=== PATIENT | female | born 1970 | race Two or more races ===

== ENCOUNTER → 2020-05-08 17:57 | Outpatient (BNVA) | payer OTHER, SELFPAY | PROVIDERS: PCP Internal Medicine; Referring Provider Internal Medicine; Visit Provider Anesthesiology | DX: Z76.89 Persons encountering health services in other specified circumstances (principal) ==

== ENCOUNTER 2020-06-17 12:47 | Outpatient (REF) | payer OTHER, SELFPAY ==
[2020-06-17 14:15] LABS: COVID-19 Test Negative (Negative); IDNOW Serial# 55D5AD1C
== END 2020-06-17 12:48 | disposition home or self-care (01) ==
LOC: HO.EMPCOV 12:47
PROVIDERS: PCP Internal Medicine; Visit Provider Internal Medicine
DX: Z20.828 Contact with and (suspected) exposure to other viral communicable diseases (principal)
CPT/HCPCS: 87635; C9803

== ENCOUNTER 2020-06-17 13:30 | Emergency (ER) | payer OTHER, SELFPAY ==
[2020-06-17 13:38] VITALS: BP 132/92; PULSE 93; RESP 18; TEMP 36.8; O2SAT 100; BMI 19.3
--- NOTE | 2020-06-17 13:54 | XR_ITS ---
EXAMINATION: XR CHEST CLINICAL INFORMATION: SOB,] exposure. COMPARISON: None TECHNIQUE: Frontal view of the chest was obtained. FINDINGS: No significant abnormality is noted involving the heart, lungs, mediastinum, bony thorax or soft tissues. XR/XR chest 1V IMPRESSION: Unremarkable chest exam
--- NOTE | 2020-06-17 14:08 | ED.SOB ---
HPI - SOB/Dyspnea General Chief Complaint: Dyspnea Stated Complaint: sob Time Seen by Provider: 06/17/20 13:35 Source: patient Mode of arrival: ambulatory Limitations: no limitations History of Present Illness HPI Narrative: 49 y/o female with history of chronic pain, sacroilitis, lumbar radiculopathy who works here as a [employer] presents to ED from work with SOB. 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 She reports mild diarrhea and muscle aches. She denies chest pain. She has tingling in her hands since she arrived to the ER. She admits to being very anxious. MD elicited complaint: shortness of breath and cough Onset (ago): day(s) (1) Context: anxiety and other (sick contact exposure) Timing: constant Severity: mild Exacerbating factors: nothing Relieving factors: nothing Associated symptoms: cough Treatment prior to arrival: none Related Data Home oxygen amount: none Previous Rx's Medication Instructions Recorded oxycodone-acetaminophen 5 mg-325 1 tab PO Q8H PRN 28 Days #84 tab 05/23/ mg tablet hydroxyzine HCl 25 mg PO Q8H PRN #10 tab 06/17/20 Allergies Allergy/AdvReac Type Severity Reaction Status Date / Time gabapentin AdvReac Unknown dizziness, Verified 09/17/19 00:00 lightheadedness ibuprofen AdvReac Unknown nausea and Verified 09/17/19 00:00 vomiting Review of Systems Review of Systems: Constitutional: No Fever, No Chills ENT/Mouth: No sore throat, No Rhinorrhea, No Swallowing Difficulty Eyes: No Eye Pain, No Swelling, No Redness Cardiovascular: No Chest Pain, + SOB, No Orthopnea, No Edema Respiratory: + Cough, No Sputum, No Wheezing, No dyspnea Gastrointestinal: No Nausea, No Vomiting, + Diarrhea, No abdominal Pain Genitourinary: No Dysuria, No Urinary Frequency, No Hematuria Musculoskeletal: No joint pain, + Myalgias Skin: No Skin Lesions, No rash Neuro: No Weakness, + Numbness/tingling (fingers), No Dizziness, + Headache Psych: + Anxiety/Panic, No Depression Heme/Lymph: No Lymphadenopathy PMFSH Past Medical History Attestation statement: The following information was validated with the patient. Medical History Chronic pain syndrome Lumbar back pain with radiculopathy affecting left lower extremity Sacroiliitis Social History Social History Alcohol intake: never Smoking Status: Unknown if ever smoked Use of substances other than those prescribed or required for medical reasons: No Advance Directives: No Advance Directives Information Provided: Yes Physical Exam Vital Signs: Vital Signs: Last Vital Signs Temp 98.2 F 06/17/20 13:38 Pulse 93 06/17/20 13:38 Resp 18 06/17/20 13:38 BP 132/92 H 06/17/20 13:38 Pulse Ox 100 06/17/20 13:38 Body Mass Index 19.3 Appearance: Alert. Oriented X3. Anxious Eyes: Pupils equal, round and reactive to light. ENT: Pharynx normal. Neck: Normal inspection. Neck supple. CVS: Normal heart rate and rhythm. Pulses normal. Respiratory: No respiratory distress. Breath sounds normal. Abdomen: Soft and nontender. +BS x4 Skin: Skin warm and dry. Normal skin color. Normal skin turgor. No rashes. Extremities: No lower extremity edema. Negative Kyung's sign Neuro: Oriented X 3. No motor deficit. No sensory deficit. Course Course Course Narrative: 49 y/o female presenting with SOB x1 day along with mild diarrhea, headache and myalgias. Recent COVID exposure. Just swabbed in COVID-19 and sent into ER for further evaluation. Vitals are normal, breath sounds clear. She is anxious. Will get COVID swab result from area 19 and chest CXR. Low dose ativan ordered. Suspect anxiety is main driving factor. Reevaluation(s) Reevaluation #1: CXR negative. COVID negative. Stable for d/c. Treatment for anxiety. Work note provided. Critical Care Time Critical Care Time Critical Care Time: No Discharge Plan Discharge Clinical Impression: Anxiety Patient Disposition: Home, Self-Care Instructions: Anxiety (ED), COVID-19 (Coronavirus Disease 2019) (ED) Additional Instructions: Your rapid COVID test today was negative. Your vital signs and lung sounds are normal and reassuring. Your chest x-ray was normal. Your shortness of breath is likely related to increased anxiety. Take the prescribed medication as needed for anxiety. If you have persistent symptoms or develop new or concerning symptoms, come back to the ER for further evaluation. If you have persistent symptoms you should a repeat COVID test. Prescriptions: New hydroxyzine HCl 25 mg tablet 25 mg PO Q8H PRN (Reason: anxiety) Qty: 10 RF: 0 No Action oxycodone-acetaminophen 5-325 mg tablet 1 tab PO Q8H PRN (Reason: pain) 28 Days Qty: 84 RF: 0 Stand Alone Forms: Work/School Release Interventions: ED Discharge Assessment Last Done: 06/17/20 14:39 Discharge Date/Time: 06/17/20 14:40
[2020-06-17] MEDS: LORazepam 0.5 MG TABLET PO (14:19)
--- NOTE | 2020-06-17 14:23 | PC.NURSE ---
very anxious, relief from neg covid test. requesting pain medication pa aware.
== END 2020-06-17 14:40 | disposition home or self-care (01) ==
PROVIDERS: Emergency Provider Emergency Medicine; PCP Internal Medicine
DX: R06.00 Dyspnea, unspecified (principal); R05 Cough; F41.1 Generalized anxiety disorder; F43.0 Acute stress reaction; Z20.828 Contact with and (suspected) exposure to other viral communicable diseases
CPT/HCPCS: 71045; 99284

== ENCOUNTER → 2020-08-29 13:57 | Outpatient (BNVA) | payer OTHER, SELFPAY | PROVIDERS: PCP Internal Medicine; Visit Provider Nurse Practitioner Family ==

== ENCOUNTER 2020-09-09 15:14 | Outpatient (REF) | payer OTHER, SELFPAY ==
[2020-09-09 15:51] LABS: Hematocrit 33.6 % (37-47); Hemoglobin 10.7 g/dl (12.0-16.0); Mean Corpuscular HGB Conc 31.8 g/dl (31.0-35.0); Mean Corpuscular Hemoglobin 30.6 pg (27.0-33.0); Mean Platelet Volume 11.2 fL (9.4-12.3); Platelet Count 460 X10*3/uL (160-400); Red Cell Distribution Width 12.5 % (11.0-16.0)
[2020-09-09 16:26] LABS: Alanine Aminotransferase 18 U/L (0-31); Albumin Level 4.3 g/dL (3.5-5.0); Alkaline Phosphatase 67 U/L (39-117); Anion Gap 13 (12-20); Aspartate Amino Transferase 27 U/L (5-31); Bilirubin Total 0.5 mg/dL (0.0-1.0); Blood Urea Nitrogen 11 mg/dL (9-16); Calcium 9.1 mg/dL (8.4-10.2); Carbon Dioxide 30 mmol/L (22-29); Chloride 101 mmol/L (96-108); Estimated Glomerular Filt Rate > 60; Glucose Random 93 mg/dL (60-115); Potassium 4.8 mmol/L (3.3-5.1); Sodium 139 mmol/L (135-145); Total Protein 7.4 g/dL (6.5-8.0)
== END 2020-09-09 15:15 | disposition home or self-care (01) ==
LOC: HO.LAB 15:14
PROVIDERS: PCP Internal Medicine; Visit Provider Nurse Practitioner Family
DX: Z12.11 Encounter for screening for malignant neoplasm of colon (principal)
CPT/HCPCS: 36415; 80053; 85027

== ENCOUNTER → 2020-09-26 15:41 | Outpatient (BNVA) | payer OTHER, SELFPAY | PROVIDERS: PCP Internal Medicine; Visit Provider Nurse Practitioner Family ==

== ENCOUNTER 2020-10-07 06:12 | Day surgery (SDC) | payer OTHER, SELFPAY ==
--- NOTE | 2020-10-03 14:03 | HO.ANESPROP2 ---
Documented by User: Ana Birch 10/03/20 14:04 HPI - Anesthesia Eval Consult details Narrative: 50yo F for Colonoscopy PMFSH Active Problems Active Problems: All Active Problems (Updated 10/01/20 @ 11:38 by Leticia Tracey) Chronic pain syndrome (Acute) Sacroiliitis (Acute) Lumbar back pain with radiculopathy affecting left lower extremity (Acute) Past Medical History Medical History Anxiety Arthritis Chronic pain syndrome H. pylori infection Hx of gastroesophageal reflux (GERD) Lumbar back pain with radiculopathy affecting left lower extremity Sacroiliitis Family History Family History Mother Cancer Diabetes HTN (hypertension) Father Diabetes Heart attack Brother HTN (hypertension) Diabetes Heart problem Maternal Aunt Cancer Sister Cancer Surgical History Surgical History H/O tubal ligation History of bursectomy History of esophagogastroduodenoscopy (EGD) History of nasal polypectomy Hx of hemorrhoidectomy S/P anal fissurectomy Social History Social History Household Members: Significant Other Alcohol intake: current Alcohol intake frequency: holidays/special occasions only Alcohol type: wine Smoking Status: Current every day smoker Tobacco Type: Cigarette Cigarettes Per Day: 3 Use of substances other than those prescribed or required for medical reasons: No Advance Directives: No Advance Directives Information Provided: Yes Meds Allergies Allergy/AdvReac Type Severity Reaction Status Date / Time gabapentin AdvReac Unknown dizziness, Verified 10/07/20 06:28 lightheadedness ibuprofen AdvReac Unknown nausea and Verified 10/07/20 06:28 vomiting Home Medications Medication Instructions Recorded Confirmed Last Taken Type chlorhexidine gluconate 0.12 % 15 ml PO BID 09/26/20 10/01/20 Unknown History mouthwash Exam Exam Date and Time: October 03, 2020 1403 Pertinent Lab Results Pertinent Lab Results: Laboratory Tests 09/09/20 09/09/20 15:26 15:26 WBC 9.0 Hgb 10.7 L Hct 33.6 L Plt Count 460 H Sodium 139 Potassium 4.8 Chloride 101 Carbon Dioxide 30 H BUN 11 Creatinine 0.86 Assessment and Plan Assessment Anesthesia Assessment: Chart Reviewed Documented by User: Shannon Rogers 10/07/20 07:26 PMFSH Past Medical History Medical History Anxiety Arthritis Chronic pain syndrome H. pylori infection Hx of gastroesophageal reflux (GERD) Lumbar back pain with radiculopathy affecting left lower extremity Sacroiliitis Family History Family History Mother Cancer Diabetes HTN (hypertension) Father Diabetes Heart attack Brother HTN (hypertension) Diabetes Heart problem Maternal Aunt Cancer Sister Cancer Surgical History Surgical History H/O tubal ligation History of bursectomy History of esophagogastroduodenoscopy (EGD) History of nasal polypectomy Hx of hemorrhoidectomy S/P anal fissurectomy Social History Social History Household Members: Significant Other Alcohol intake: current Alcohol intake frequency: holidays/special occasions only Alcohol type: wine Smoking Status: Current every day smoker Tobacco Type: Cigarette Cigarettes Per Day: 3 Use of substances other than those prescribed or required for medical reasons: No Advance Directives: No Advance Directives Information Provided: Yes Meds Allergies Allergy/AdvReac Type Severity Reaction Status Date / Time gabapentin AdvReac Unknown dizziness, Verified 10/07/20 06:28 lightheadedness ibuprofen AdvReac Unknown nausea and Verified 10/07/20 06:28 vomiting Home Medications Medication Instructions Recorded Confirmed Last Taken Type chlorhexidine gluconate 0.12 % 15 ml PO BID 09/26/20 10/01/20 Unknown History mouthwash Exam Airway Mallampati Class: I TM Dist: >3cm Partial: Upper Loose/Missing/Broken Teeth: Yes and Upper Heart: RRR Lungs: CTA Assessment and Plan Assessment Anesthesia Assessment: Anesthesia Plan Discussed and Chart Reviewed Final Anesthetic Review NPO: Yes ASA Class: II Final Preanesthetic Review: Meds/Allgs Chart Reviewed, Consent Obtained/Reviewed and Anes Risks/Benef Reviewed Patient Risk: Low Procedure Risk: Low Anesthetic Plan Anesthetic Plan: MAC: Disposition: Standard PACU
[2020-10-07 06:30] VITALS: BMI 20.1
[2020-10-07 06:52] VITALS: BP 117/70; PULSE 73; RESP 16; TEMP 36.7; O2SAT 98
[2020-10-07] MEDS: Lactated Ringers 1,000 ML 100 ML IVCONT (06:54)
--- NOTE | 2020-10-07 07:42 | PM.OP ---
Brief Operative Note Date of Service: 10/07/20 Pre-op diagnosis: Colon cancer screening(+Family hx in Aunt on Paternal side) Post-op diagnosis: other (Large ulcerated low rectal mass, polyp @ 10cm; Internal hemorrhoids) Procedure: Colonoscopy with HSP x1,Bx of low rectal mass Implants: NONE Surgeon: Alba Cordero MD Anesthesia: MAC (MD NURY) Estimated blood loss (mL): 10 Pathology: other (Polyp @ 10cm, Ulcerated mass-low rectal) Condition: stable Disposition: PACU
--- NOTE | 2020-10-07 07:42 | MHC.SHP ---
Pre-Procedural Eval Section A The patient is an INPATIENT: No Changes since office visit: Yes Patient answered all questions; No Cold of Flu in the past 2 weeks, No New Medical Problems and No Changes in Medication The History & Physical has been completed within 30 days and I have reviewed it.: Yes Section B Chief Complaint: Screening Allergies: Allergies Allergy/AdvReac Type Severity Reaction Status Date / Time gabapentin AdvReac Unknown dizziness, Verified 10/07/20 06:28 lightheadedness ibuprofen AdvReac Unknown nausea and Verified 10/07/20 06:28 vomiting Plan I have reviewed the history and physical and performed a pertinent physical examination on my patient. No changes have occurred unless specified.
[2020-10-07 08:23] VITALS: BP 112/63; PULSE 69; RESP 18; TEMP 37.1; O2SAT 100
[2020-10-07 08:38] VITALS: BP 112/63; PULSE 69; RESP 18; TEMP 37.1; O2SAT 100
[2020-10-07 08:50] LABS: MANUAL DIFF FLAG NO
[2020-10-07 08:53] LABS: Basophils Percent Auto 0.3 % (0-2); Eosinophils Percent Auto 0.7 % (0-4); Hematocrit 34.2 % (37-47); Imm Gran Abs Auto 0.02 X10*3/uL (0.00-0.03); Imm Gran Pct Auto 0.3 % (0.0-0.4); Lymphocytes Absolute Auto 1.6 X10*3/uL (1.2-4.9); Lymphocytes Percent Auto 25.9 % (20-40); Mean Corpuscular HGB Conc 32.2 g/dl (31.0-35.0); Mean Corpuscular Hemoglobin 30.1 pg (27.0-33.0); Mean Corpuscular Volume 93.4 fL (80-98); Mean Platelet Volume 10.1 fL (9.4-12.3); Monocytes Absolute Auto 0.4 X10*3/uL (0.1-1.2); Neutrophils Absolute Auto 3.9 X10*3/uL (2.0-8.3); Neutrophils Percent Auto 65.8 % (45-73); Platelet Count 396 X10*3/uL (160-400); Red Blood Count 3.66 X10*6/uL (4.20-5.50); Red Cell Distribution Width 12.8 % (11.0-16.0)
[2020-10-07 09:16] LABS: Alanine Aminotransferase 14 U/L (0-31); Anion Gap 11 (12-20); Aspartate Amino Transferase 16 U/L (5-31); Blood Urea Nitrogen 8 mg/dL (9-16); Calcium 8.9 mg/dL (8.4-10.2); Carbon Dioxide 26 mmol/L (22-29); Chloride 106 mmol/L (96-108); Creatinine Clr Calc Pharmacy 75.9; Estimated Glomerular Filt Rate > 60; Glucose Fasting 98 mg/dL (60-99); Potassium 4.5 mmol/L (3.3-5.1); Sodium 138 mmol/L (135-145)
--- NOTE | 2020-10-07 15:44 | W.PM.OPN ---
Operative Note Operative Note Date of Service: 10/07/20 Narrative: Pre-op diagnosis: Colon cancer screening(+Family hx in Aunt on Paternal side) Post-op diagnosis: Large ulcerated low rectal mass, polyp @ 10cm; Internal hemorrhoids. Procedure: Colonoscopy with HSP x1,Bx of low rectal mass Implants: NONE Surgeon: Alba Cordero MD Anesthesia: MAC (MD NURY) FINDINGS; UZMA: Sphincter tone adequate, Large fixed polypoid lesion directly in from the ARV by 2-4cm Adult slim colonoscope introduced without difficulty encounted an Ulcerated mass that is partially circumferential and is 2-4cm in length-Center appears ulcerated, surrounding this is friable polypoid tissue. Scope advanced beyond this area easily. There was a second polyp about 5-8mm removed by HSP technique with ERBE cautery @ 10 cm. Scope advanced to the level of the cecum. Appendiceal orifice, ileocecal valve were seen. PREP: Excellent. Slow with drawal of scope good rotational views. NO additional lesions seen. Rectal lesion reseen biopsies were taken. Estimated blood loss (mL): 10 Pathology: Polyp @ 10cm, Ulcerated mass-low rectal--Rectal cancer. Condition: stable Disposition: PACU PLAN: Patient was informed of the findings. Labs were done. She has a new mild anemia that appears stable since August. (CEA--is not elevated.) She will be scheduled for a CT abd/pelvis as soon as possible. I spoke with Dr. Frye. She will need to see Oncology--My office will set this up as well. Check with Uday about an appt after the CT--does he want to order the MRI or does Oncology. She does not need followup in our office unless she has questions that arise as the workup progresses.
== END 2020-10-07 09:39 | disposition home or self-care (01) ==
PROVIDERS: PCP Internal Medicine; Visit Provider Internal Medicine Gastroenterology
PROC: 0DJD8ZZ Inspection of Lower Intestinal Tract, Via Natural or Artificial Opening Endoscopic (ICD-10-PCS; CPT 45378; principal; 2020-10-07 07:30)
DX: Z12.11 Encounter for screening for malignant neoplasm of colon (principal); D12.8 Benign neoplasm of rectum; C20 Malignant neoplasm of rectum; K64.8 Other hemorrhoids; D64.9 Anemia, unspecified; K59.00 Constipation, unspecified; G89.4 Chronic pain syndrome; M54.5 Low back pain; Z88.8 Allergy status to other drugs, medicaments and biological substances; Z79.899 Other long term (current) drug therapy; F17.210 Nicotine dependence, cigarettes, uncomplicated; Z80.1 Family history of malignant neoplasm of trachea, bronchus and lung; Z85.42 Personal history of malignant neoplasm of other parts of uterus
CPT/HCPCS: 45380; 36415; 80048; 82378; 82565; 84450; 84460; 84520; 85025; 88305; 88341; 88342

== ENCOUNTER 2020-10-08 09:12 | Outpatient (REF) | payer OTHER, SELFPAY ==
--- NOTE | ~2020-10-08 | CT_ITS ---
EXAMINATION: CT ABDOMEN AND PELVIS WITH CONTRAST CLINICAL INFORMATION: Rectal cancer COMPARISON: Previous CT of the abdomen and pelvis most recent October 2016 TECHNIQUE: Multidetector volumetric images were obtained from the superior aspect of the liver through the pubic symphysis following administration 85 mL of Omnipaque 350 intravenous contrast. Sagittal and coronal reformatted images were obtained on the technologist's workstation. Oral contrast: Yes This CT examination was performed using dose optimization techniques as appropriate, variously including the following: *Automated exposure control *Adjustment of mA and/or kV according to patient size (this includes techniques or standardized protocols for targeted exams where dose is matched to indication/reason for exam; i.e. extremities or head) *Use of iterative reconstruction technique DLP: 187 mGy-cm FINDINGS: LUNG BASES: There is a 7 mm left lower lobe nodule axial image 9 series 3 that is new. LIVER, GALLBLADDER, AND BILIARY TREE: The liver is normal in size, shape, and attenuation. No focal hepatic lesion or biliary ductal dilatation is present. The gallbladder is unremarkable with no evidence of radiopaque gallstones, gallbladder wall thickening, or obvious pericholecystic inflammatory changes. PANCREAS: Unremarkable. SPLEEN: Unremarkable. ADRENAL GLANDS: There is slight fullness or nodularity of the left adrenal gland that is stable. KIDNEYS AND URETERS: There is a small cyst in the upper pole of the right kidney. The kidneys are otherwise unremarkable.. BLADDER: Not optimally distended and not well evaluated. GASTROINTESTINAL TRACT: There is diffuse wall thickening of the rectum. A discrete mass is not seen. There is mild diverticulosis of the colon. Small and large bowel is otherwise unremarkable. The appendix is unremarkable. The stomach is unremarkable. ABDOMINAL WALL: No significant hernia is appreciated. LYMPH NODES: There are small lymph nodes in the pelvis. Largest in the presacral space measuring 6 mm axial image 59 series 3. There are 2 there is a smaller 5 mm more lateral lymph node axial image 59 series 3 and 4 mm more superior lymph node in the mesentery axial image 53 series 3. VASCULAR: Unremarkable. PELVIC VISCERA: There is a 3 cm left adnexal cyst. The uterus and right adnexa are unremarkable. OSSEOUS STRUCTURES: There is a small sclerotic density in the left femoral neck that is stable and probably represents a bone island. CT/CT abdomen pelvis w con IMPRESSION: Diffuse rectal wall thickening and small perirectal lymph nodes in the pelvis. New 7 mm left lower lobe pulmonary nodule. 3 cm left adnexal cyst. Stable fullness of the left adrenal gland and small right renal cyst.
[2020-10-08] MEDS: iohexoL 350 MG/ML 100 ML INFUS..BTL IV (10:16)
== END 2020-10-08 09:13 | disposition home or self-care (01) ==
LOC: HO.CT 09:12
PROVIDERS: PCP Internal Medicine; Visit Provider Internal Medicine Gastroenterology
DX: C20 Malignant neoplasm of rectum (principal)
CPT/HCPCS: 74177; Q9967

== ENCOUNTER 2020-10-09 09:49 | Outpatient (REF) | payer OTHER, SELFPAY ==
[2020-10-09 11:54] LABS: Blood Urea Nitrogen 5 mg/dL (9-16); Estimated Glomerular Filt Rate > 60
== END 2020-10-09 09:50 | disposition home or self-care (01) ==
LOC: HO.LAB 09:49
PROVIDERS: PCP Internal Medicine; Visit Provider Surgery
DX: C20 Malignant neoplasm of rectum (principal)
CPT/HCPCS: 36415; 46600; 82565; 84520

== ENCOUNTER → 2020-10-09 14:18 | Outpatient (BNV) | payer MEDICARE, OTHER, MEDICAID, SELFPAY | PROVIDERS: PCP Internal Medicine; Referring Provider Internal Medicine Gastroenterology; Visit Provider Internal Medicine Medical Oncology | DX: C20 Malignant neoplasm of rectum (principal) | CPT/HCPCS: 99204; 99213; 99214 ==

== ENCOUNTER 2020-10-15 10:55 | Outpatient (REF) | payer OTHER, SELFPAY ==
--- NOTE | ~2020-10-15 | MR_ITS ---
EXAMINATION: MR pelvis without and with contrast CLINICAL INFORMATION: Malignant neoplasm of rectum COMPARISON: Selected portions of CT 10/08/2020 TECHNIQUE: Multiple routine MRI sequences through the pelvis were obtained on a high-field 3 Emilia MRI. The examination was specifically tailored to evaluate the rectum. Pre and postcontrast images were evaluated. 5 mL of Gadavist intravenous contrast was utilized without incident. FINDINGS: IMAGE QUALITY The orientation of the plane through the tumor is suboptimal. The integrity of the perirectal fat and relationships to the mesorectal fascia is difficult to determine. TUMOR LOCATION Tumor location from anal verge: The rectal mass extends to within 2.7 cm in the anal verge. Distance of lowest extent of tumor from anal verge: 2.7 cm. Distance of lowest extent of tumor from top of anal sphincter: 0 cm. The mass extends to the upper aspect of the sphincter. Relationship to anterior peritoneal reflection: No definite involvement of the anterior peritoneal reflection. Tumor characteristics: Circumferential extent and location: There is essentially circumferential tumor involvement. Craniocaudad extent: 5.2 cm Mucinous: No T-category i) T-category T3/ possible T4* T4 Organ invasion b Tumor is closely related to the left side of the cervix * T4: Please indicate structures with possible invasion: Vagina/left side of cervix ii) For low rectal tumors (0 - 5 cm) only: T3 Tumor invades intersphincteric plane or lies within 1 mm of levator muscle. The lower extent of the tumor at or below the top border of the puborectalis. The relationship to the internal and external sphincter is difficult to determine. Distance to the MRF and extramural depth of invasion Shortest distance of the definitive tumor border to the MRF: This is difficult to determine due to the plane of the imaging. Estimated to be approximately 1 cm. There are tumor spiculations extending between the rectum and mesorectal fascia nearly circumferentially. These are nonspecific. Extramural vascular invasion (EMVI): Equivocal Mesorectal Lymph Nodes And/Or Tumor Deposits: No convincing mesorectal lymph nodes although this is suboptimally evaluated. Extra mesorectal Lymph Nodes: None There is a uterine fibroid on the left. There is a small left adnexal cyst. Small nabothian cysts. No free pelvic fluid. IMPRESSION The orientation of the imaging plane through the tumor is suboptimal. This limits assessment. There is a low rectal tumor extending from the sphincter approximately 5.2 cm. There are strands of abnormal signal extending from the rectum to the region of the cervix and vaginal fornix. Minimal invasion is not excluded. Stranding in the perirectal fat is nonspecific but moderately extensive. No definite extension beyond the mesorectal fascia. No definite involvement of the peritoneal reflection or bladder. No convincing adenopathy. The mass extends to the sphincter. Difficult to assess for involvement of the external sphincter or intersphincteric plane.
== END 2020-10-15 10:56 | disposition home or self-care (01) ==
LOC: HO.MRI 10:55
PROVIDERS: Visit Provider Surgery
DX: C20 Malignant neoplasm of rectum (principal)
CPT/HCPCS: 72197; A9585

== ENCOUNTER → 2020-10-23 13:00 | Outpatient (BNVA) | payer OTHER, SELFPAY | PROVIDERS: PCP Internal Medicine; Visit Provider Surgery ==

== ENCOUNTER 2020-10-28 08:47 | Outpatient (REF) | payer OTHER, SELFPAY ==
[2020-10-28 15:52] LABS: CT PCR NOT DETECTED (Not Detect.); NG PCR NOT DETECTED (Not Detect.)
[2020-10-29 11:09] LABS: BV Int Neg Control Negative (Negative); BV Int Pos Control Positive (Positive)
[2020-11-01 11:37] LABS: HPV 16 RNA NOT DETECTED (NOT DETECTED); HPV mRNA E6/E7 rflx Detected (Not Detected)
== END 2020-10-28 08:48 | disposition home or self-care (01) ==
LOC: HO.LAB 08:47
PROVIDERS: PCP Internal Medicine; Visit Provider Advanced Practice Midwife
DX: Z01.419 Encounter for gynecological examination (general) (routine) without abnormal findings (principal); R10.2 Pelvic and perineal pain; Z20.2 Contact with and (suspected) exposure to infections with a predominantly sexual mode of transmission; Z11.51 Encounter for screening for human papillomavirus (HPV); C20 Malignant neoplasm of rectum; D12.6 Benign neoplasm of colon, unspecified; K59.00 Constipation, unspecified; Z98.890 Other specified postprocedural states
CPT/HCPCS: 87480; 87491; 87510; 87591; 87624; 87625; 87660; 88141; 88142

== ENCOUNTER 2020-11-11 08:36 | Outpatient (REF) | payer OTHER, SELFPAY ==
--- NOTE | ~2020-11-11 | PE_ITS ---
There are no suspicious sclerotic or lytic lesions visualized. EXAMINATION: Fluorine-18 FDG PET/CT Scan CLINICAL INDICATION: Initial treatment management. Malignant neoplasm of rectum. Initial staging. PROCEDURE: 60 minutes following the intravenous administration of 16.4 mCi of fluorine 18 FDG, images from the base of the skull to the mid thighs were obtained using a combined PET/CT scanner with CT scan based attenuation correction. No oral contrast was administered. No intravenous contrast was administered. Transverse, coronal, sagittal, and volume reconstruction projections were obtained. The patient's blood glucose as determined by a finger stick, was 87 mg/dl immediately prior to injection. Total CT exam dose-length product 187.12 mGy-cm * These CT images were obtained using dose optimization techniques as appropriate, variously including the following: Automated exposure control * Adjustment of mA and/or kV according to patient size (this includes techniques or standardized protocols for targeted exams where dose is matched to indication/reason for exam; i.e. extremities or head) * Use of iterative reconstruction technique COMPARISON: No previous PET/CT scan is available for comparison. The diagnostic CT scan of the abdomen and pelvis, dated 10/08/2020, is available for comparison. FINDINGS: (Slice numbers described in this report are numbered superiorly to inferiorly with slice #1 in the head) NECK AND VISUALIZED HEAD: No foci of abnormal FDG activity are noted. The distribution of FDG activity is physiological. There is no cervical lymphadenopathy. THORAX: There is a 0.9 x 0.5 cm solid left lower lobe pulmonary nodule, slice 83/267. There is weak FDG activity in this, SUVmax 1.6, slice 82/267, but this nodule is too small to be well characterized on the FDG PET images. A second dense 0.9 x 0.7 cm left lower lobe pulmonary nodules present just superior to the left hemidiaphragm, slice 114/267. This is also too small to be characterized on the FDG PET images, but no abnormal FDG activity is present at this site. No other pulmonary nodules are visualized. There are no suspicious foci of abnormal FDG activity well delineated within the lungs. There is no mediastinal, supraclavicular, or axillary lymphadenopathy. ABDOMEN AND PELVIS: There is markedly increased FDG activity associated with wall thickening in the rectum. This shows SUVmax 9.5, slice 223/267. No additional foci of abnormal FDG activity are present in the abdomen or pelvis. There is mild diffuse bowel activity present, most prominent in the right colon but no additional suspicious foci of FDG activity are present in the abdomen or pelvis. There is diverticulosis without evidence of diverticulitis. The hollow viscera are otherwise unremarkable. he liver, gallbladder, spleen, and kidneys are unremarkable. The adrenal glands are unremarkable. Fullness or nodularity in the left adrenal gland suggested on the diagnostic CT scan dated 10/08/2020 is not appreciated on these nondiagnostic CT images. There is no abnormal FDG activity in either adrenal gland. A 3 cm left adnexal cyst at the level of the acetabular roof described on the 10/08/[address] scan is not present on the current study. The pancreas is unremarkable. There is no retroperitoneal, mesenteric, pelvic or inguinal lymphadenopathy. There is no perirectal lymphadenopathy. MUSCULOSKELETAL: No foci of abnormal FDG activity are present in the osseous structures. No suspicious sclerotic or lytic lesions are visualized. VASCULAR: No significant abnormalities are present. PET/PET CT fusion skull to thigh IMPRESSION: 1. An intensely FDG avid rectal lesion is present consistent with a primary rectal malignancy. 2. Two subcentimeter left lower lobe pulmonary nodules are present, too small to be well characterized on the FDG PET images. If biopsy of these lesions is not obtained, follow-up with diagnostic CT imaging of the chest in approximately 3-6 months is recommended. 3. No additional abnormalities suspicious for other metastatic or malignant lesions are noted.
== END 2020-11-11 08:37 | disposition home or self-care (01) ==
LOC: HO.PET 08:36
PROVIDERS: PCP Internal Medicine; Visit Provider Internal Medicine Medical Oncology
DX: Z13.89 Encounter for screening for other disorder (principal)

== ENCOUNTER 2020-11-18 03:00 | Emergency (ER) | payer OTHER, SELFPAY ==
--- NOTE | 2020-11-18 | ECG_ITS ---
Test Reason : EPIGASTRIC PAIN Blood Pressure : / mmHG Vent. Rate : 064 BPM Atrial Rate : 064 BPM P-R Int : 106 ms QRS Dur : 088 ms QT Int : 398 ms P-R-T Axes : 069 070 062 degrees QTc Int : 410 ms Sinus rhythm with short [place] Otherwise normal ECG When compared with ECG of 14-NOV-2016 06:37, No significant change was found Referred By: Shannon Hernandez Electronically Signed By:RUPERTO NORTH
--- NOTE | ~2020-11-18 | CT_ITS ---
EXAMINATION: CT ABDOMEN AND PELVIS WITH CONTRAST CLINICAL INFORMATION: Abdominal discomfort. Known cancer. Mild nausea. COMPARISON: 10/08/2020 TECHNIQUE: Multidetector volumetric images were obtained from the superior aspect of the liver through the pubic symphysis following administration 85 mL of Omnipaque 350 intravenous contrast. Sagittal and coronal reformatted images were obtained on the technologist's workstation. Oral contrast: No This CT examination was performed using dose optimization techniques as appropriate, variously including the following: *Automated exposure control *Adjustment of mA and/or kV according to patient size (this includes techniques or standardized protocols for targeted exams where dose is matched to indication/reason for exam; i.e. extremities or head) *Use of iterative reconstruction technique DLP: 344 mGy-cm FINDINGS: LUNG BASES: Unchanged nodule in the left lower lobe at the lung base measuring 0.7 cm. LIVER, GALLBLADDER, AND BILIARY TREE: The liver is normal in size, shape, and attenuation. No focal hepatic lesion or biliary ductal dilatation is present. The gallbladder is unremarkable with no evidence of radiopaque gallstones, gallbladder wall thickening, or obvious pericholecystic inflammatory changes. PANCREAS: Unremarkable. SPLEEN: Unremarkable. ADRENAL GLANDS: Unremarkable. KIDNEYS AND URETERS: The kidneys are normal in size, shape, and attenuation. No hydronephrosis, hydroureter, or calculi seen. No perinephric stranding. BLADDER: Unremarkable. GASTROINTESTINAL TRACT: The stomach is unremarkable. Normal caliber small bowel. There is no obstruction. Irregular wall thickening of the rectum, which is decreased in prominence from the previous CT. The remainder of the colon shows no abnormality. No free air. No free fluid. ABDOMINAL WALL: No significant hernia is appreciated. LYMPH NODES: Normal. VASCULAR: Unremarkable. PELVIC VISCERA: Anteverted uterus. No adnexal mass. OSSEOUS STRUCTURES: No acute or suspicious osseous abnormality. CT/CT abdomen pelvis w con IMPRESSION: 1. No acute finding in the abdomen or pelvis. No acute inflammatory change. 2. Decreased prominence of the irregular rectal wall thickening consistent with the known rectal malignancy. No additional colonic abnormality identified. 3. Unchanged pulmonary nodule at the left lung base.
[2020-11-18 03:48] VITALS: BP 103/59; PULSE 64; RESP 12; TEMP 36.9; O2SAT 100; BMI 19.6
[2020-11-18 03:55] VITALS: BP 103/59; PULSE 64; RESP 12; O2SAT 99
[2020-11-18 04:23] LABS: Basophils Percent Auto 0.2 % (0-2); Eosinophils Absolute Auto 0.3 X10*3/uL (0.0-0.4); Eosinophils Percent Auto 6.9 % (0-4); Hematocrit 31.9 % (37-47); Hemoglobin 10.8 g/dl (12.0-16.0); Imm Gran Abs Auto 0.01 X10*3/uL (0.00-0.03); Imm Gran Pct Auto 0.2 % (0.0-0.4); Lymphocytes Absolute Auto 0.5 X10*3/uL (1.2-4.9); Lymphocytes Percent Auto 11.6 % (20-40); MANUAL DIFF FLAG SCAN; Mean Corpuscular HGB Conc 33.9 g/dl (31.0-35.0); Mean Corpuscular Hemoglobin 30.5 pg (27.0-33.0); Mean Corpuscular Volume 90.1 fL (80-98); Mean Platelet Volume 9.9 fL (9.4-12.3); Monocytes Absolute Auto 0.4 X10*3/uL (0.1-1.2); Monocytes Percent Auto 9.3 % (2-11); Neutrophils Absolute Auto 3.3 X10*3/uL (2.0-8.3); Neutrophils Percent Auto 71.8 % (45-73); Platelet Count 287 X10*3/uL (160-400); Red Blood Count 3.54 X10*6/uL (4.20-5.50); Red Cell Distribution Width 12.7 % (11.0-16.0); SCAN SMEAR FLAG 1; White Blood Count 4.6 X10*3/uL (4.8-10.8)
--- NOTE | 2020-11-18 04:25 | PC.NURSE ---
patient spilling her chemotherapy drugs onto the floor of her room. Called nursing metal extrusion supervisor and overnight pharmacy for proper handling of the spill. patient removed from room. told to handle spill as though chemotherapy administration, double glove, gowning up, no contact for women and disposing of medication residue in properly marked bins. environmental services supplying this rn with spill equipment for chemotherapy drugs. area cleansed twice and no residue noted. nursing metal extrusion supervisor made aware again when spill was contained.
[2020-11-18 04:30] LABS: Prothrombin Time 12.4 SEC (10.8-13.0)
[2020-11-18 04:32] LABS: Glucose Urine UA NEG (NEG); Leukocyte Esterase Urine NEG (NEG); Nitrite Urine NEG (NEG); Urine Blood TRACE (NEG); Urine Ketones NEG (NEG); Urine Protein NEG (NEG-TRACE)
[2020-11-18 04:33] LABS: Appearance Urine CLEAR; Color Urine YELLOW
[2020-11-18 04:34] LABS: UPreg QC Valid YES; Urine Pregnancy NEGATIVE (NEGATIVE)
--- NOTE | 2020-11-18 04:38 | ED_ITS ---
HPI - Abdominal Pain General Chief Complaint: Abdominal Pain Stated Complaint: Abd pain Time Seen by Provider: 11/18/20 03:44 Source: patient Mode of arrival: ambulatory History of Present Illness HPI narrative: This is a 50-year-old female with past medical history significant for colon CA currently undergoing chemotherapy and radiation for which she only has 3 weeks left. She presents today for the past 2 evenings at night waking up with ?cramping primarily in the upper abdomen?. This is not been associated with fever, chills, but there has been some nausea without vomiting and she denies any diarrhea or urinary symptoms. She states that she discuss this yesterday with her provider and was offered a medication to help with the crampiness, but patient wanted to wait and see if the symptoms occurred again and became concerned and wanted to get evaluated in the emergency room. She has a negative abdominal surgery history. Related Data Previous Rx's Medication Instructions Recorded oxycodone 10 mg tablet 10 mg PO Q6-8H PRN 28 Days #112 tab 10/14/20 capecitabine 1,500 mg PO BID #120 tab 10/22/20 methylcellulose (laxative) 500 mg 500 mg PO DAILY #30 tab 10/28/20 tablet ondansetron HCl [Zofran] 8 mg PO Q8H PRN #60 tab 10/30/20 Allergies Allergy/AdvReac Type Severity Reaction Status Date / Time gabapentin AdvReac Unknown dizziness, Verified 11/18/20 03:46 lightheadedness ibuprofen AdvReac Unknown nausea and Verified 11/18/20 03:46 vomiting Review of Systems Review of Systems Pertinent positives and negatives as stated in HPI 10 point review of systems is otherwise negative. Physical Exam Vital Signs: Vital Signs: Last Vital Signs Temp 98.5 F 11/18/20 03:48 Pulse 64 11/18/20 03:55 Resp 12 11/18/20 03:55 BP 103/59 L 11/18/20 03:55 Pulse Ox 99 11/18/20 03:55 Body Mass Index 19.6 VITAL SIGNS: Reviewed. GENERAL: Well developed, well nourished, in no acute distress. HEAD: Normocephalic/atraumatic EYES: PERRLA, EOMI EARS: Ext canals without abnormality NOSE: Nares patent bilateral OROPHARYNX: no oral lesions noted, posterior pharynx clear NECK: Supple, no adenopathy LUNGS: Normal breath sounds. No adventitious sounds or accessory muscle use. SpO2<99> CARDIOVASCULAR: Regular rate and rhythm without noted murmurs, no JVD or lower extremity edema. ABDOMEN: Soft, some tenderness in the epigastrium without rebound, non-distended with bowel sounds. Course Course Course Narrative: This is a 50-year-old female with history and clinical presentation suggestive possible ileus, SBO. Review of all investigations is negative for any acute findings. All results were discussed with patient at bedside and she was instructed to follow-up with your provider and recommended that she take the medication that was offered yesterday. MDM - Abdominal Pain Lab Data Result diagrams: 11/18/20 04:10 11/18/20 04:10 Labs: Lab Results 11/18/20 11/18/20 11/18/20 Range/Units 03:57 03:57 04:10 WBC 4.6 L (4.8-10.8) X10*3/uL RBC 3.54 L (4.20-5.50) X10*6/uL Hgb 10.8 L (12.0-16.0) g/dl Hct 31.9 L (37-47) % MCV 90.1 (80-98) fL MCH 30.5 (27.0-33.0) pg MCHC 33.9 (31.0-35.0) g/dl RDW 12.7 (11.0-16.0) % Plt Count 287 (160-400) X10*3/uL MPV 9.9 (9.4-12.3) fL Immature Gran % (Auto) 0.2 (0.0-0.4) % Neut % (Auto) 71.8 (45-73) % Lymph % (Auto) 11.6 L (20-40) % Wilson % (Auto) 9.3 (2-11) % Eos % (Auto) 6.9 H (0-4) % Baso % (Auto) 0.2 (0-2) % Lymph # (Auto) 0.5 L (1.2-4.9) X10*3/uL [place] # (Auto) 0.4 (0.1-1.2) X10*3/uL Eos # (Auto) 0.3 (0.0-0.4) X10*3/uL Baso # (Auto) 0.0 (0.0-0.2) X10*3/uL Abs Immat Gran (auto) 0.01 (0.00-0.03) X10*3/uL Absolute Neuts (auto) 3.3 (2.0-8.3) X10*3/uL Absolute Nucleated RBC 0.000 (0.0-0.012) X10*3/uL Nucleated RBC % (auto) 0.0 (0.0-0.2) /100WBC Smear Tech's Comments VERIFIED PT (10.8-13.0) SEC INR (0.9-1.1) Sodium (135-145) mmol/L Potassium (3.3-5.1) mmol/L Chloride (96-108) mmol/L Carbon Dioxide (22-29) mmol/L Anion Gap (12-20) BUN (9-16) mg/dL Creatinine (0.5-1.4) mg/dL Estim Creat Clear Calc Estimated GFR Random Glucose (60-115) mg/dL Calcium (8.4-10.2) mg/dL Total Bilirubin (0.0-1.0) mg/dL AST (5-31) U/L ALT (0-31) U/L Alkaline Phosphatase (39-117) U/L Troponin I High Sens (<3.5-17.0) ng/L Total Protein (6.5-8.0) g/dL Albumin (3.5-5.0) g/dL Lipase (8-78) U/L Urine Color YELLOW Urine Appearance CLEAR Urine pH 6.0 (5.0-8.0) Ur Specific [place] 1.020 (1.005-1.025) Urine Protein NEG (NEG-TRACE) MG/DL Urine Glucose (UA) NEG (NEG) MG/DL Urine Ketones NEG (NEG) MG/DL Urine Blood TRACE (NEG) Urine Nitrite NEG (NEG) Ur Leukocyte Esterase NEG (NEG) Urine RBC 0-2 (0) /HPF Urine WBC 0 (0-4) /HPF Ur Squamous Epith Cells TRACE /LPF Ur Renal Epithelial Cell TRACE /LPF Urine Bacteria NONE /LPF Urine Test NEGATIVE (NEGATIVE) 11/18/20 11/18/20 11/18/20 Range/Units 04:10 04:10 04:13 WBC (4.8-10.8) X10*3/uL RBC (4.20-5.50) X10*6/uL Hgb (12.0-16.0) g/dl Hct (37-47) % MCV (80-98) fL MCH (27.0-33.0) pg MCHC (31.0-35.0) g/dl RDW (11.0-16.0) % Plt Count (160-400) X10*3/uL MPV (9.4-12.3) fL Immature Gran % (Auto) (0.0-0.4) % Neut % (Auto) (45-73) % Lymph % (Auto) (20-40) % Wilson % (Auto) (2-11) % Eos % (Auto) (0-4) % Baso % (Auto) (0-2) % Lymph # (Auto) (1.2-4.9) X10*3/uL [place] # (Auto) (0.1-1.2) X10*3/uL Eos # (Auto) (0.0-0.4) X10*3/uL Baso # (Auto) (0.0-0.2) X10*3/uL Abs Immat Gran (auto) (0.00-0.03) X10*3/uL Absolute Neuts (auto) (2.0-8.3) X10*3/uL Absolute Nucleated RBC (0.0-0.012) X10*3/uL Nucleated RBC % (auto) (0.0-0.2) /100WBC Smear Tech's Comments PT 12.4 (10.8-13.0) SEC INR 1.0 (0.9-1.1) Sodium 140 (135-145) mmol/L Potassium 3.9 D (3.3-5.1) mmol/L Chloride 107 (96-108) mmol/L Carbon Dioxide 24 (22-29) mmol/L Anion Gap 13 (12-20) BUN 10 (9-16) mg/dL Creatinine 0.68 (0.5-1.4) mg/dL Estim Creat Clear Calc 72.8 Estimated GFR > 60 Random Glucose 102 (60-115) mg/dL Calcium 8.8 D (8.4-10.2) mg/dL Total Bilirubin < 0.2 (0.0-1.0) mg/dL AST 13 (5-31) U/L ALT 15 (0-31) U/L Alkaline Phosphatase 47 D (39-117) U/L Troponin I High Sens < 3.5 (<3.5-17.0) ng/L Total Protein 6.4 L (6.5-8.0) g/dL Albumin 3.8 (3.5-5.0) g/dL Lipase 25 (8-78) U/L Urine Color Urine Appearance Urine pH (5.0-8.0) Ur Specific [place] (1.005-1.025) Urine Protein (NEG-TRACE) MG/DL Urine Glucose (UA) (NEG) MG/DL Urine Ketones (NEG) MG/DL Urine Blood (NEG) Urine Nitrite (NEG) Ur Leukocyte Esterase (NEG) Urine RBC (0) /HPF Urine WBC (0-4) /HPF Ur Squamous Epith Cells /LPF Ur Renal Epithelial Cell /LPF Urine Bacteria /LPF Urine Test (NEGATIVE) ECG Data Attestation: I personally reviewed and interpreted this ECG as follows: Prior ECG tracings: available for review (11/14/2016 no acute changes on comparison) Interpretation: Sinus rhythm, HR-64, no evidence of acute ischemia, MN shortened/QRS and QTC are within normal limits. Discharge Plan Discharge Clinical Impression: Abdominal discomfort Patient Disposition: Home, Self-Care Instructions: Abdominal Pain (ED) Additional Instructions: Follow-up with your primary care provider by calling the office today and discussing the medication that was offered yesterday. Return to the ER for any acute worsening of symptoms. Prescriptions: No Action ondansetron HCl [Zofran] 4 mg Tablet 8 mg PO Q8H PRN (Reason: Nausea And Vomiting) Qty: 60 RF: 4 capecitabine 500 mg Tablet 1,500 mg PO BID Qty: 120 RF: 1 oxycodone 10 mg tablet 10 mg PO Q6-8H PRN (Reason: rectal pain) 28 Days Qty: 112 RF: 0 Citrucel 500 mg tablet 500 mg PO DAILY Qty: 30 RF: 2 Referrals: Ky Lin MD [Primary Care Provider] - 2 days [facility] Past Medical History Source: nursing notes reviewed Medical History Adenocarcinoma of rectum Anxiety Arthritis Chronic pain syndrome H. pylori infection Hx of gastroesophageal reflux (GERD) Lumbar back pain with radiculopathy affecting left lower extremity Rectal cancer Sacroiliitis Tubular adenoma Surgical History H/O tubal ligation History of bursectomy History of esophagogastroduodenoscopy (EGD) History of nasal polypectomy Hx of colonoscopy Hx of hemorrhoidectomy S/P anal fissurectomy Family History Family History Mother Cancer Diabetes HTN (hypertension) Father Diabetes Heart attack Brother HTN (hypertension) Diabetes Heart problem Maternal Aunt Cancer Sister Cancer Social History Social History Household Members: Significant Other Alcohol intake: never Smoking Status: Never smoker Tobacco Type: Cigarette Use of substances other than those prescribed or required for medical reasons: No Advance Directives: No Advance Directives Information Provided: No Patient : No
[2020-11-18 05:05] LABS: Alanine Aminotransferase 15 U/L (0-31); Albumin Level 3.8 g/dL (3.5-5.0); Alkaline Phosphatase 47 U/L (39-117); Anion Gap 13 (12-20); Aspartate Amino Transferase 13 U/L (5-31); Bilirubin Total < 0.2 mg/dL (0.0-1.0); Blood Urea Nitrogen 10 mg/dL (9-16); Calcium 8.8 mg/dL (8.4-10.2); Carbon Dioxide 24 mmol/L (22-29); Chloride 107 mmol/L (96-108); Creatinine Clr Calc Pharmacy 72.8; Estimated Glomerular Filt Rate > 60; Glucose Random 102 mg/dL (60-115); Lipase 25 U/L (8-78); Potassium 3.9 mmol/L (3.3-5.1); Sodium 140 mmol/L (135-145); Total Protein 6.4 g/dL (6.5-8.0)
[2020-11-18 05:06] LABS: Troponin-I High Sensitivity < 3.5 ng/L (<3.5-17.0)
[2020-11-18 05:24] LABS: SLIDE REVIEW VERIFIED
[2020-11-18 05:24] LABS: RBC Urine 0-2 /HPF (0); Renal Epithelial Cells Urine TRACE /LPF; Squamous Epithelial Cell Urine TRACE /LPF; WBC Urine 0 /HPF (0-4)
[2020-11-18] MEDS: iohexoL 350 MG/ML 100 ML INFUS..BTL 85 ML IV (06:32)
== END 2020-11-18 07:43 | disposition home or self-care (01) ==
PROVIDERS: Emergency Provider Student in an Organized Health Care Education/Training Program; PCP Internal Medicine
DX: R10.10 Upper abdominal pain, unspecified (principal); R11.0 Nausea; C20 Malignant neoplasm of rectum; Z92.21 Personal history of antineoplastic chemotherapy; Z92.3 Personal history of irradiation; Z87.891 Personal history of nicotine dependence
CPT/HCPCS: 36415; 74177; 80053; 81001; 81025; 83690; 84484; 85025; 85610; 93005; 99284; 99285; Q9967

== ENCOUNTER → 2020-11-19 08:54 | Outpatient (BNVA) | payer OTHER, SELFPAY | PROVIDERS: PCP Internal Medicine; Referring Provider Internal Medicine; Visit Provider Surgery ==

== ENCOUNTER 2020-11-26 14:31 | Outpatient (REF) | payer OTHER, SELFPAY ==
--- NOTE | ~2020-11-26 | US_ITS ---
EXAMINATION: US PELVIC AND TRANSVAGINAL CLINICAL INFORMATION: Pelvic/perineal pain. COMPARISON: Multiple priors, most recent CT abdomen/pelvis dated 11/18/2020, PET/CT dated 11/11/2020, and MR pelvis dated 10/15/2020 TECHNIQUE: Transabdominal and transvaginal imaging was performed. FINDINGS: The uterus is of normal size and echogenicity measuring 6.2 x 2.8 x 4 cm. A regular homogeneous endometrium is identified measuring 0.2 cm. There are nabothian cysts. Both ovaries are of normal size and echogenicity. The right measures 1.3 x 2.3 x 1.5 cm for a volume of 2 mL. The left measures 1.9 x 1.6 x 1.4 cm for a volume of 2 mL. Left ovarian simple cyst measuring 1.4 cm. In a postmenopausal patient, a cyst this size is almost certainly benign, and no followup imaging is recommended. There is no pelvic free fluid. US/US pelvic and transvaginal IMPRESSION: 1. Sonographically unremarkable uterus and endometrium. 2. Simple left ovarian cyst measuring 1.4 cm. In a postmenopausal patient, a cyst this size is almost certainly benign, and no followup imaging is recommended.
== END 2020-11-26 14:32 | disposition home or self-care (01) ==
LOC: HO.US 14:31
PROVIDERS: Visit Provider Advanced Practice Midwife
DX: R10.2 Pelvic and perineal pain (principal)
CPT/HCPCS: 76830; 76856

== ENCOUNTER 2020-12-22 09:44 | Emergency (ER) | payer OTHER, SELFPAY ==
[2020-12-22 09:53] VITALS: BP 109/69; PULSE 118; RESP 14; TEMP 36.5; O2SAT 100; BMI 16.9
[2020-12-22 10:00] VITALS: BP 114/80; PULSE 106; RESP 18; TEMP 37; O2SAT 99
--- NOTE | 2020-12-22 11:24 | ED_ITS ---
HPI - Nausea/Vomiting/Diarrhea General Chief complaint: Nausea/Vomiting/Diarrhea Stated complaint: nausea weak diarrhea Time Seen by Provider: 12/22/20 11:12 Source: patient Mode of arrival: ambulatory Limitations: no limitations History of Present Illness HPI Narrative: 50-year-old female who presents emergency department for evaluation of weakness, dehydration, nausea and body aches. The patient was diagnosed with rectal adenocarcinoma October 07, 2020. she states that she has been treated with chemotherapy agents orally and with radiation. She completed her radiation on 12/12/2020 but continues to take oral chemotherapy agents. She states that for the past 24 hours she has been feeling very weak. She has had persistent nausea with 1 episode of emesis. She denied any diarrhea. She states that she is has a total body ache which is constant and is 9/10. She denied fever but did have chills. She states she feels lightheaded and dizzy. She had a similar episode several months ago and she states she was treated in the emergency department with IV fluids and improved. Related Data Previous Rx's Medication Instructions Recorded capecitabine 1,500 mg PO BID #120 tab 10/22/20 ondansetron HCl [Zofran] 8 mg PO Q8H PRN #60 tab 10/30/20 oxycodone 10 mg PO Q8H PRN #60 tab 12/01/20 prochlorperazine maleate 10 mg PO Q6H PRN #50 tab 12/02/20 [Compazine] oxycodone 10 mg PO Q4H PRN #60 tab 12/19/20 ondansetron 8 mg PO Q8H #20 tab 12/22/20 Allergies Allergy/AdvReac Type Severity Reaction Status Date / Time gabapentin AdvReac Unknown dizziness, Verified 12/10/20 12:09 lightheadedness ibuprofen AdvReac Unknown nausea and Verified 12/10/20 12:09 vomiting Review of Systems Review of Systems: Yes all other systems are reviewed and are negative [facility] Past Medical History [facility] Narrative: Social history: She denies tobacco, alcohol and drug use. Medical History Adenocarcinoma of rectum Anxiety Arthritis Chronic pain syndrome H. pylori infection Hx of gastroesophageal reflux (GERD) Lumbar back pain with radiculopathy affecting left lower extremity Rectal cancer Sacroiliitis Tubular adenoma Surgical History H/O tubal ligation History of bursectomy History of esophagogastroduodenoscopy (EGD) History of nasal polypectomy Hx of colonoscopy Hx of hemorrhoidectomy S/P anal fissurectomy Family History Family History Mother Cancer Diabetes HTN (hypertension) Father Diabetes Heart attack Brother HTN (hypertension) Diabetes Heart problem Maternal Aunt Cancer Sister Cancer Social History Social History Household Members: Significant Other Alcohol intake: never Advance Directives: No Advance Directives Information Provided: No Patient : No Physical Exam Vital Signs: Vital Signs: Last Vital Signs Temp 98.6 F 12/22/20 10:00 Pulse 106 H 12/22/20 10:00 Resp 18 12/22/20 10:00 BP 114/80 12/22/20 10:00 Pulse Ox 99 12/22/20 10:00 Body Mass Index 16.9 Const: General: cooperative Nutritional Appearance: thin Orientation/consciousness: oriented to person and oriented to place Limitations: no limitations HENMT: Head: Yes normal to inspection, Yes normocephalic and Yes atraumatic Ears: external ears normal General nose exam: Normal external nose present Face and sinus: Yes normal facial exam Mouth: Normal oral and palatal mucosa present Throat: Yes posterior oropharynx normal Eyes: Periorbital: periorbital findings normal Eyelids: Yes eyelids normal Conjunctivae: conjunctivae normal Sclerae: sclerae normal Corneas: corneas normal Pupils: Equal, round and reactive pupils present Direct Ophthalmoscopy: normal light reflex Neck: Neck: Yes full ROM, Yes no lymphadenopathy, Yes no meningeal signs, Yes trachea midline and Yes supple Chest: Chest palpation & inspection: normal inspection of the chest and normal palpation of entire chest wall Resp: Effort & Inspection: normal respiratory effort and able to speak in complete sentences Auscultation: clear to auscultation bilaterally Cardio: Rate: regular rate Rhythm: regular rhythm Heart sounds: S1 normal heart sound present, S2 normal heart sound present and no murmurs GI: Inspection: Yes normal to inspection Palpation (GI): Soft to palpation, nontender, no guarding, not rigid and No hepatosplenomegaly present : General: Yes no CVA tenderness Back/Spine/Pelvis: Back: no CVA tenderness Cervical Spine: normal cervical lordosis Thoracic/Lumbar Spine: thoracic and lumbar spine normal to inspection Skin: Lesions: no lesions Rashes: no rashes Wounds: no wounds Neuro: General: oriented to person, oriented to place and no meningeal signs Cranial nerves: Yes CN's II-XII intact bilaterally and Yes Equal, round and reactive pupils present Cognition (Neuro): normal cognition Motor exam (neuro): 5/5 motor strength present throughout Extrem: General: Yes normal to inspection and Yes full ROM Psych: Appearance: well kempt Mental Status: mental status grossly normal Speech and movement: Normal speech and movement present Affect: normal affect Attitude: cooperative Thought process: Normal thought process present Thought content: Normal thought content present Course Course Course Narrative: 50-year-old female with a history of rectal adenocarcinoma diagnosed 10/07/2020, completed radiation therapy on , continues on oral chemotherapy agents who presents emergency department for evaluation of nausea, vomiting, weakness, dizziness and body pain. vital signs revealed tachycardia with a pulse of 106 otherwise vital signs were normal. Physical examination revealed a very thin woman with no other specific findings. I ordered a CBC, CMP, lipase, urinalysis and COVID-19 test. Patient will be jane tahira with normal saline IV x1 L, Zofran 4 mg IV for her nausea and morphine 4 mg IV for her body pain. 1452: Patient's laboratory evaluation did reveal anemia with an H&H of 10.5 and 30.9, with this finding is slightly worse than the patient's baseline anemia. The patient has a slightly low chloride with an elevated bicarb which is probably consistent with her vomiting and diarrhea. The rest of the patient's labs are normal. The patient is feeling better after receiving 2 L of normal saline and the above treatment. The patient has been prescribed Zofran and Compazine in the past, she believes that she currently has Compazine only. She was given a prescription for Zofran. The patient was given verbal and printed instructions prior to discharge. The patient was advised to follow-up with their PCP in 2 days and to return to the emergency department if their symptoms get worse or if they develop any new symptoms that are concerning to them MDM - Nausea/Vomiting/Diarrhea Lab Data Result diagrams: 12/22/20 11:46 12/22/20 11:46 Labs: Lab Results 12/22/20 12/22/20 12/22/20 Range/Units 11:46 11:46 11:46 WBC 5.4 (4.8-10.8) X10*3/uL RBC 3.41 L (4.20-5.50) X10*6/uL Hgb 10.5 L (12.0-16.0) g/dl Hct 30.9 L (37-47) % MCV 90.6 (80-98) fL MCH 30.8 (27.0-33.0) pg MCHC 34.0 (31.0-35.0) g/dl RDW 16.4 H (11.0-16.0) % Plt Count 412 H D (160-400) X10*3/uL MPV 8.3 L (9.4-12.3) fL Immature Gran % (Auto) 0.7 H (0.0-0.4) % Neut % (Auto) 86.3 H (45-73) % Lymph % (Auto) 3.9 L (20-40) % [place] % (Auto) 8.7 (2-11) % Eos % (Auto) 0.2 (0-4) % Baso % (Auto) 0.2 (0-2) % Lymph # (Auto) 0.2 L (1.2-4.9) X10*3/uL [place] # (Auto) 0.5 (0.1-1.2) X10*3/uL Eos # (Auto) 0.0 (0.0-0.4) X10*3/uL Baso # (Auto) 0.0 (0.0-0.2) X10*3/uL Abs Immat Gran (auto) 0.04 H (0.00-0.03) X10*3/uL Absolute Neuts (auto) 4.7 (2.0-8.3) X10*3/uL Absolute Nucleated RBC 0.000 (0.0-0.012) X10*3/uL Nucleated RBC % (auto) 0.0 (0.0-0.2) /100WBC Sodium 137 (135-145) mmol/L Potassium 3.5 (3.3-5.1) mmol/L Chloride 94 L (96-108) mmol/L Carbon Dioxide 33 H (22-29) mmol/L Anion Gap 14 (12-20) BUN 5 L D (9-16) mg/dL Creatinine 0.64 (0.5-1.4) mg/dL Estim Creat Clear Calc 67.0 Estimated GFR > 60 Random Glucose 114 (60-115) mg/dL Calcium 7.6 L D (8.4-10.2) mg/dL Total Bilirubin 0.4 (0.0-1.0) mg/dL AST 32 H (5-31) U/L ALT 22 (0-31) U/L Alkaline Phosphatase 80 D (39-117) U/L Total Protein 5.5 L D (6.5-8.0) g/dL Albumin 2.6 L D (3.5-5.0) g/dL Lipase 23 (8-78) U/L Urine Color Urine Appearance Urine pH (5.0-8.0) Ur Specific [place] (1.005-1.025) Urine Protein (NEG-TRACE) MG/DL Urine Glucose (UA) (NEG) MG/DL Urine Ketones (NEG) MG/DL Urine Blood (NEG) Urine Nitrite (NEG) Ur Leukocyte Esterase (NEG) Urine RBC (0) /HPF Urine WBC (0-4) /HPF Ur Squamous Epith Cells /LPF Urine Bacteria /LPF Ur Oval Fat Bodies (NONE) COVID-19 ([facility]) Negative (Negative) COVID-19 Clin Com See Note 12/22/20 Range/Units 11:46 WBC (4.8-10.8) X10*3/uL RBC (4.20-5.50) X10*6/uL Hgb (12.0-16.0) g/dl Hct (37-47) % MCV (80-98) fL MCH (27.0-33.0) pg MCHC (31.0-35.0) g/dl RDW (11.0-16.0) % Plt Count (160-400) X10*3/uL MPV (9.4-12.3) fL Immature Gran % (Auto) (0.0-0.4) % Neut % (Auto) (45-73) % Lymph % (Auto) (20-40) % [place] % (Auto) (2-11) % Eos % (Auto) (0-4) % Baso % (Auto) (0-2) % Lymph # (Auto) (1.2-4.9) X10*3/uL [place] # (Auto) (0.1-1.2) X10*3/uL Eos # (Auto) (0.0-0.4) X10*3/uL Baso # (Auto) (0.0-0.2) X10*3/uL Abs Immat Gran (auto) (0.00-0.03) X10*3/uL Absolute Neuts (auto) (2.0-8.3) X10*3/uL Absolute Nucleated RBC (0.0-0.012) X10*3/uL Nucleated RBC % (auto) (0.0-0.2) /100WBC Sodium (135-145) mmol/L Potassium (3.3-5.1) mmol/L Chloride (96-108) mmol/L Carbon Dioxide (22-29) mmol/L Anion Gap (12-20) BUN (9-16) mg/dL Creatinine (0.5-1.4) mg/dL Estim Creat Clear Calc Estimated GFR Random Glucose (60-115) mg/dL Calcium (8.4-10.2) mg/dL Total Bilirubin (0.0-1.0) mg/dL AST (5-31) U/L ALT (0-31) U/L Alkaline Phosphatase (39-117) U/L Total Protein (6.5-8.0) g/dL Albumin (3.5-5.0) g/dL Lipase (8-78) U/L Urine Color YELLOW Urine Appearance CLEAR Urine pH 7.5 (5.0-8.0) Ur Specific [place] 1.010 (1.005-1.025) Urine Protein TRACE (NEG-TRACE) MG/DL Urine Glucose (UA) NEG (NEG) MG/DL Urine Ketones NEG (NEG) MG/DL Urine Blood TRACE (NEG) Urine Nitrite NEG (NEG) Ur Leukocyte Esterase TRACE H (NEG) Urine RBC 1-4 (0) /HPF Urine WBC 10-14 H (0-4) /HPF Ur Squamous Epith Cells TRACE /LPF Urine Bacteria NONE /LPF Ur Oval Fat Bodies NOTED (NONE) COVID-19 ([facility]) (Negative) COVID-19 Clin Com Discharge Plan Discharge Clinical Impression: Acute dehydration, Myalgia Vomiting Qualifiers: Vomiting type: unspecified Vomiting Intractability: non-intractable Nausea presence: with nausea Qualified Code(s): R11.2 - Nausea with vomiting, unspecified Patient Disposition: Home, Self-Care Instructions: Acute Nausea and Vomiting (ED) Additional Instructions: Your laboratory evaluation revealed increased anemia above your baseline anemia but you do not need transfusions at this time. Your labs are otherwise consistent with your vomiting and diarrhea. Stop taking the Compazine ( prochlorperazine ). Take Zofran ( ondansetron) oral dissolving tablets, 8 mg, 1 pill every 8 hours as needed for nausea and vomiting. Follow-up with your doctor in 2 days. Please return to the emergency department if your symptoms get worse or if you develop any symptoms that are concerning to you. Prescriptions: New ondansetron 8 mg tablet,disintegrating 8 mg PO Q8H Qty: 20 RF: 0 No Action ondansetron HCl [Zofran] 4 mg Tablet 8 mg PO Q8H PRN (Reason: Nausea And Vomiting) Qty: 60 RF: 4 oxycodone 10 mg Tablet 10 mg PO Q8H PRN (Reason: Breakthrough Pain, Moderate) Qty: 60 RF: 0 prochlorperazine maleate [Compazine] 10 mg Tablet 10 mg PO Q6H PRN (Reason: Nausea And Vomiting) Qty: 50 RF: 0 oxycodone 10 mg Tablet 10 mg PO Q4H PRN (Reason: Breakthrough Pain, Moderate) Qty: 60 RF: 0 capecitabine 500 mg Tablet 1,500 mg PO BID Qty: 120 RF: 1
[2020-12-22 11:53] LABS: MANUAL DIFF FLAG NO
[2020-12-22] MEDS: 0.9 % Sodium Chloride 1,000 ML 999 ML IV (11:54)
[2020-12-22] MEDS: Morphine Sulfate 4 MG/ML CARTRIDGE IVPUSH (11:56)
[2020-12-22] MEDS: ondansetron HCL 4 MG/2 ML VIAL IVPUSH (11:56)
[2020-12-22 11:57] LABS: Basophils Percent Auto 0.2 % (0-2); Eosinophils Percent Auto 0.2 % (0-4); Hematocrit 30.9 % (37-47); Hemoglobin 10.5 g/dl (12.0-16.0); Imm Gran Abs Auto 0.04 X10*3/uL (0.00-0.03); Imm Gran Pct Auto 0.7 % (0.0-0.4); Lymphocytes Absolute Auto 0.2 X10*3/uL (1.2-4.9); Lymphocytes Percent Auto 3.9 % (20-40); Mean Corpuscular Hemoglobin 30.8 pg (27.0-33.0); Mean Corpuscular Volume 90.6 fL (80-98); Mean Platelet Volume 8.3 fL (9.4-12.3); Monocytes Absolute Auto 0.5 X10*3/uL (0.1-1.2); Monocytes Percent Auto 8.7 % (2-11); Neutrophils Absolute Auto 4.7 X10*3/uL (2.0-8.3); Neutrophils Percent Auto 86.3 % (45-73); Platelet Count 412 X10*3/uL (160-400); Red Blood Count 3.41 X10*6/uL (4.20-5.50); Red Cell Distribution Width 16.4 % (11.0-16.0); White Blood Count 5.4 X10*3/uL (4.8-10.8)
[2020-12-22 12:12] LABS: COVID-19 Test Negative (Negative)
[2020-12-22 12:19] LABS: Glucose Urine UA NEG (NEG); Leukocyte Esterase Urine TRACE (NEG); Nitrite Urine NEG (NEG); PH 7.5 (5.0-8.0); UACC Culture Trigger YES; Urine Blood TRACE (NEG); Urine Ketones NEG (NEG); Urine Protein TRACE MG/DL (NEG-TRACE)
[2020-12-22 12:22] LABS: Appearance Urine CLEAR; Color Urine YELLOW
[2020-12-22 12:42] LABS: Squamous Epithelial Cell Urine TRACE /LPF
[2020-12-22 12:43] LABS: Oval Fat Bodies Urine NOTED
[2020-12-22 12:50] LABS: Carbon Dioxide 33 mmol/L (22-29)
[2020-12-22 12:51] LABS: Alanine Aminotransferase 22 U/L (0-31); Albumin Level 2.6 g/dL (3.5-5.0); Alkaline Phosphatase 80 U/L (39-117); Anion Gap 14 (12-20); Aspartate Amino Transferase 32 U/L (5-31); Bilirubin Total 0.4 mg/dL (0.0-1.0); Blood Urea Nitrogen 5 mg/dL (9-16); Calcium 7.6 mg/dL (8.4-10.2); Chloride 94 mmol/L (96-108); Estimated Glomerular Filt Rate > 60; Glucose Random 114 mg/dL (60-115); Lipase 23 U/L (8-78); Potassium 3.5 mmol/L (3.3-5.1); Sodium 137 mmol/L (135-145); Total Protein 5.5 g/dL (6.5-8.0)
== END 2020-12-22 15:15 | disposition home or self-care (01) ==
PROVIDERS: Emergency Provider Emergency Medicine Emergency Medical Services; PCP Internal Medicine
DX: E86.0 Dehydration (principal); M79.10 Myalgia, unspecified site; R11.2 Nausea with vomiting, unspecified; D64.9 Anemia, unspecified; C20 Malignant neoplasm of rectum; Z79.899 Other long term (current) drug therapy; Z20.822 Contact with and (suspected) exposure to COVID-19
CPT/HCPCS: 36415; 80053; 81001; 81003; 83690; 85025; 87086; 87635; 96361; 96374; 96375; 99284; J2270; J2405

== ENCOUNTER → 2021-01-07 09:50 | Outpatient (BNVA) | payer OTHER, SELFPAY | PROVIDERS: PCP Internal Medicine; Referring Provider Internal Medicine; Visit Provider Surgery ==

== ENCOUNTER 2021-01-22 08:41 | Outpatient (REF) | payer OTHER, SELFPAY ==
--- NOTE | ~2021-01-22 | CT_ITS ---
EXAMINATION: CT ABDOMEN AND PELVIS WITH CONTRAST CLINICAL INFORMATION: Rectal cancer COMPARISON: Previous CT scans most recent October 2020 and pelvic ultrasound November 2020 TECHNIQUE: Multidetector volumetric images were obtained from the superior aspect of the liver through the pubic symphysis following administration 85 mL of Omnipaque 350 intravenous contrast. Sagittal and coronal reformatted images were obtained on the technologist's workstation. Oral contrast: Yes This CT examination was performed using dose optimization techniques as appropriate, variously including the following: *Automated exposure control *Adjustment of mA and/or kV according to patient size (this includes techniques or standardized protocols for targeted exams where dose is matched to indication/reason for exam; i.e. extremities or head) *Use of iterative reconstruction technique DLP: 176 mGy-cm FINDINGS: LUNG BASES: There is a 5 mm left lower lobe nodule axial image 17 series 8 that is stable. The lung bases are otherwise clear. LIVER, GALLBLADDER, AND BILIARY TREE: The liver is low in attenuation suggestive of fatty infiltration. Liver is otherwise normal. No focal liver lesion or biliary duct dilatation is seen. The gallbladder is normal. PANCREAS: Unremarkable. SPLEEN: Unremarkable. ADRENAL GLANDS: Unremarkable. KIDNEYS AND URETERS: The kidneys are normal in size, shape, and attenuation. No hydronephrosis, hydroureter, or calculi seen. There is a small cyst in the upper pole of the right kidney. BLADDER: Not optimally distended. GASTROINTESTINAL TRACT: There is diffuse rectal wall thickening. There is stranding of the surrounding perirectal fat. There is mild diffuse wall thickening of the distal colon. There is wall thickening of a loop of small bowel in the pelvis. These findings may represent post radiation changes. Small and large bowel is otherwise normal. The appendix is normal. The stomach is unremarkable. ABDOMINAL WALL: No significant hernia is appreciated. LYMPH NODES: There are small mesenteric lymph nodes seen in the presacral space measuring 4 and 5 mm axial image 62 series 3. No other adenopathy is seen. There is fat stranding seen in the presacral space that appears unchanged. There is no ascites. VASCULAR: Unremarkable. PELVIC VISCERA: There is heterogeneous enhancement of the uterus. OSSEOUS STRUCTURES: Unremarkable. CT/CT abdomen pelvis w con IMPRESSION: Persistent diffuse wall thickening of the rectum and stranding of the perirectal fat. There is also mild wall thickening of the distal colon and a loop of small bowel in the lower pelvis. This may represent post radiation change. Small lymph nodes in the mesentery in the pelvis similar to previous exam. No enlarged lymph nodes seen. Stable fat stranding in the presacral space. Fatty liver. Small right renal cyst. Stable 5 mm left lower lobe pulmonary nodule.
[2021-01-22] MEDS: iohexoL 350 MG/ML 100 ML INFUS..BTL IV (10:05)
== END 2021-01-22 08:42 | disposition home or self-care (01) ==
LOC: HO.CT 08:41
PROVIDERS: PCP Internal Medicine; Visit Provider Surgery
DX: C20 Malignant neoplasm of rectum (principal)
CPT/HCPCS: 74177; Q9967

== ENCOUNTER → 2021-01-26 08:35 | Outpatient (BNVA) | payer OTHER, SELFPAY | PROVIDERS: PCP Internal Medicine; Referring Provider Internal Medicine; Visit Provider Surgery ==

== ENCOUNTER 2021-03-12 07:02 | Day surgery (SDC) | payer OTHER, SELFPAY ==
--- NOTE | ~2021-03-12 | IR_ITS ---
PROCEDURE: IR INSERTION OF TUNNEL CATHETER CLINICAL INFORMATION: Rectal cancer. Port for chemotherapy. COMPARISON: None TECHNIQUE: Procedure and risks and benefits including bleeding, infection and pneumothorax were discussed with the patient and informed consent was obtained. All elements of maximal sterile barrier technique followed including use of cap, mask, sterile gown, sterile gloves, a sterile full body drape and hand hygiene. Also followed skin preparation with 2% chlorhexidine for cutaneous antisepsis, and sterile ultrasound preparation with sterile gel and probe cover when applicable. The right neck was prepped and draped in the usual sterile fashion. The skin and soft tissues were anesthetized with 1% lidocaine with epinephrine. A small incision was made. Using ultrasound guidance and a 5-Israeli micropuncture system, right internal jugular vein access was obtained. Over an 018 wire, a 5-Israeli dilator was positioned in the EC. The skin and soft tissues of the right upper anterior chest were anesthetized with 1% lidocaine with epinephrine. A small incision was made. Using blunt dissection, A subcutaneous pocket was created. A subcutaneous tunnel from the 2-D chest to the neck incision was anesthetized with 1% lidocaine with epinephrine. Using a tunneler, a 6.6 Israeli single-lumen catheter was tunneled from the chest to the neck incision. The catheter was attached to the port. The port and catheter were flushed. The port was positioned in the subcutaneous pocket and secured using 22-0 nonabsorbable sutures. An 035 guidewire was advanced through the 5-Israeli dilator into the IVC. 5-Israeli dilator was changed for a 7-Israeli peel-away sheath. Using bent wire technique, catheter length was estimated and the catheter was cut. Catheter length is 19 cm. Catheter was fed through the peel-away sheath. The neck incision was closed using a 4-0 subcuticular suture. The chest incision was closed using 33-0 absorbable interrupted sutures followed by a running 4-0 absorbable subcuticular suture. The port was accessed. The port had good blood return, flushed easily and was instilled with 5 mL heparin 100 unit per mL solution. Real-time ultrasound guidance was used to document vein patency and for needle entry. A formal ultrasound picture was recorded. The patient received Versed 1 mg and fentanyl 50 mcg intravenously during the procedure. Total sedation time was 37 minutes. Real-time ultrasound guidance was used to document vein patency and for needle entry. A formal ultrasound picture was recorded. FINDINGS: There is a right internal jugular port with tip projecting over the cavoatrial junction. IR/IR cvc insert tunnel w prt/boiler coverer helper IMPRESSION: Right internal jugular 6.6 Israeli single-lumen dignity Port-A-Cath placement.
--- NOTE | ~2021-03-12 | IR_ITS ---
PROCEDURE: IR INSERTION OF TUNNEL CATHETER CLINICAL INFORMATION: Rectal cancer. Port for chemotherapy. COMPARISON: None TECHNIQUE: Procedure and risks and benefits including bleeding, infection and pneumothorax were discussed with the patient and informed consent was obtained. All elements of maximal sterile barrier technique followed including use of cap, mask, sterile gown, sterile gloves, a sterile full body drape and hand hygiene. Also followed skin preparation with 2% chlorhexidine for cutaneous antisepsis, and sterile ultrasound preparation with sterile gel and probe cover when applicable. The right neck was prepped and draped in the usual sterile fashion. The skin and soft tissues were anesthetized with 1% lidocaine with epinephrine. A small incision was made. Using ultrasound guidance and a 5-Kenyan micropuncture system, right internal jugular vein access was obtained. Over an 018 wire, a 5-Kenyan dilator was positioned in the EC. The skin and soft tissues of the right upper anterior chest were anesthetized with 1% lidocaine with epinephrine. A small incision was made. Using blunt dissection, A subcutaneous pocket was created. A subcutaneous tunnel from the 2-D chest to the neck incision was anesthetized with 1% lidocaine with epinephrine. Using a tunneler, a 6.6 Kenyan single-lumen catheter was tunneled from the chest to the neck incision. The catheter was attached to the port. The port and catheter were flushed. The port was positioned in the subcutaneous pocket and secured using 22-0 nonabsorbable sutures. An 035 guidewire was advanced through the 5-Kenyan dilator into the IVC. 5-Kenyan dilator was changed for a 7-Kenyan peel-away sheath. Using bent wire technique, catheter length was estimated and the catheter was cut. Catheter length is 19 cm. Catheter was fed through the peel-away sheath. The neck incision was closed using a 4-0 subcuticular suture. The chest incision was closed using 33-0 absorbable interrupted sutures followed by a running 4-0 absorbable subcuticular suture. The port was accessed. The port had good blood return, flushed easily and was instilled with 5 mL heparin 100 unit per mL solution. Real-time ultrasound guidance was used to document vein patency and for needle entry. A formal ultrasound picture was recorded. The patient received Versed 1 mg and fentanyl 50 mcg intravenously during the procedure. Total sedation time was 37 minutes. Real-time ultrasound guidance was used to document vein patency and for needle entry. A formal ultrasound picture was recorded. FINDINGS: There is a right internal jugular port with tip projecting over the cavoatrial junction. IR/IR us guide venous access IMPRESSION: Right internal jugular 6.6 Kenyan single-lumen dignity Port-A-Cath placement.
[2021-03-12 07:26] VITALS: BMI 19.1
[2021-03-12 07:59] LABS: MANUAL DIFF FLAG NO
[2021-03-12 08:02] LABS: Basophils Percent Auto 0.5 % (0-2); Eosinophils Absolute Auto 0.2 X10*3/uL (0.0-0.4); Eosinophils Percent Auto 3.9 % (0-4); Hematocrit 35.2 % (37-47); Hemoglobin 11.5 g/dl (12.0-16.0); Mean Corpuscular HGB Conc 32.7 g/dl (31.0-35.0); Mean Corpuscular Hemoglobin 31.7 pg (27.0-33.0); Mean Platelet Volume 9.3 fL (9.4-12.3); Monocytes Absolute Auto 0.4 X10*3/uL (0.1-1.2); Monocytes Percent Auto 10.5 % (2-11); Neutrophils Absolute Auto 2.3 X10*3/uL (2.0-8.3); Neutrophils Percent Auto 60.1 % (45-73); Platelet Count 269 X10*3/uL (160-400); Red Blood Count 3.63 X10*6/uL (4.20-5.50); Red Cell Distribution Width 11.5 % (11.0-16.0); White Blood Count 3.8 X10*3/uL (4.8-10.8)
[2021-03-12 08:08] LABS: Prothrombin Time 10.9 SEC (9.9-13.0)
[2021-03-12 08:11] LABS: Partial Thromboplastin Time 27.5 SEC (24.1-38.0)
[2021-03-12 08:28] LABS: Anion Gap 13 (12-20); Carbon Dioxide 27 mmol/L (22-29); Chloride 103 mmol/L (96-108); Sodium 138 mmol/L (135-145)
[2021-03-12 10:10] VITALS: BP 101/58; PULSE 72; RESP 16; TEMP 36.9; O2SAT 99
[2021-03-12 10:25] VITALS: BP 98/60; PULSE 83; RESP 16; O2SAT 98
--- NOTE | 2021-03-12 10:32 | HO.RADPN ---
RADIOLOGY Narrative Narrative: Right IJ 6.6 fr single lumen Dignity port placed. Tip in SVC.
[2021-03-12 10:40] VITALS: BP 103/61; PULSE 77; RESP 16; O2SAT 98
[2021-03-12 10:55] VITALS: BP 107/68; PULSE 78; RESP 16; O2SAT 98
[2021-03-12 11:10] VITALS: BP 100/64; PULSE 82; RESP 16; O2SAT 98
== END 2021-03-12 11:43 | disposition home or self-care (01) ==
PROVIDERS: Radiology Diagnostic Radiology; PCP Internal Medicine; Visit Provider Internal Medicine Medical Oncology
DX: Z45.2 Encounter for adjustment and management of vascular access device (principal); C20 Malignant neoplasm of rectum; G89.4 Chronic pain syndrome
CPT/HCPCS: 36415; 36561; 76937; 80051; 85025; 85610; 85730; 99152; 99153; C1769; C1788; J0690; J1642; J2250; J3010

== ENCOUNTER 2021-04-08 06:35 | Emergency (ER) | payer OTHER, SELFPAY ==
--- NOTE | 2021-04-08 | ECG_ITS ---
Test Reason : CP Blood Pressure : / mmHG Vent. Rate : 099 BPM Atrial Rate : 099 BPM P-R Int : 092 ms QRS Dur : 068 ms QT Int : 352 ms P-R-T Axes : 076 077 032 degrees QTc Int : 451 ms Sinus rhythm with short VA Nonspecific ST abnormality Abnormal ECG When compared with ECG of 18-NOV-2020 04:21, Vent. rate has increased BY [address] now depressed in Anterior leads T wave amplitude has decreased in Anterior leads Referred By: Generic ED Physician Electronically Signed By:KAYLA LUCIANO MD
--- NOTE | ~2021-04-08 | CT_ITS ---
EXAMINATION: CT ANGIOGRAM OF THE CHEST WITH AND WITHOUT CONTRAST (CT PULMONARY ANGIOGRAM FOR PE) CLINICAL INFORMATION: Reason for Exam CP, elevated dimer, on chemo COMPARISON: Previous chest x-ray most recent May 2020 and PET/CT scan October 2020 TECHNIQUE: Prior to contrast administration, noncontrast localization images were obtained. Subsequently, multidetector volumetric imaging was performed from the thoracic inlet to below the diaphragms following the administration of 80 mL Omnipaque 350 intravenous contrast. No contrast reaction reported Sagittal, coronal, and MIP oblique sagittal reformatted images were obtained on the CT workstation, uploaded to PACS, and reviewed. This CT examination was performed using dose optimization techniques as appropriate, variously including the following: *Automated exposure control *Adjustment of mA and/or kV according to patient size (this includes techniques or standardized protocols for targeted exams where dose is matched to indication/reason for exam; i.e. extremities or head) *Use of iterative reconstruction technique Total exam dose-length product 158 mGy-cm FINDINGS: QUALITY OF STUDY/CONTRAST BOLUS: Satisfactory. PULMONARY ARTERIES: No central or segmental pulmonary emboli. THORACIC AORTA: No aneurysm or dissection. LUNG: There is a 5 mm superior segment left lower lobe nodule axial image 150 series 7. There is a 6 mm left lower lobe nodule adjacent to the diaphragm axial image 324 series 7. These do not appear appreciably changed in size from PET/CT scan October 2020. PLEURA: No pleural effusion or pneumothorax. MEDIASTINUM: Normal heart size. No pericardial effusion. No hilar or mediastinal lymphadenopathy. No evidence of septal bowing or right heart strain. CHEST WALL/AXILLA: No axillary or internal mammary lymphadenopathy. OSSEOUS STRUCTURES: No acute or suspicious osseous abnormality. UPPER ABDOMEN: Unremarkable. No reflux of contrast into the hepatic veins to suggest elevated right heart pressures. CT/CT angio chest PE protocol IMPRESSION: No evidence of pulmonary embolism. Stable left lower lobe pulmonary nodules. VTE: negative
[2021-04-08 06:37] VITALS: BP 120/81; PULSE 101; RESP 16; TEMP 36.8; O2SAT 100
--- NOTE | 2021-04-08 07:03 | ED.CHESTPAIN ---
HPI - Chest Pain General Chief Complaint: Chest Pain Stated Complaint: Chest pain Time Seen by Provider: 04/08/21 06:57 Source: patient Mode of arrival: ambulatory Limitations: no limitations History of Present Illness HPI narrative: Patient comes to the emergency room complaining of chest pain that started prior to arrival. Patient states it is cramping sensation in the chest muscles. Patient states she woke up around 5 in the morning, 2 hours ago, walked to the bathroom and started feeling intermittent spasms in her chest. Patient denies shortness of breath. Patient denies abdominal pain, nausea, vomiting, upper respiratory symptoms. Patient is currently undergoing chemotherapy for rectal cancer, patient's last chemotherapy was on March 30, next chemotherapy cycle will be on April 13. Denies fever chills. MD complaint: chest pain Related Data Previous Rx's Medication Instructions Recorded morphine 30 mg tablet,extended 30 mg PO BID@0900,1700 #60 tab 03/09/21 release (MS Contin) dexamethasone 4 mg tablet 4 mg PO BID #100 tab 03/12/21 (Decadron) ondansetron HCl 4 mg tablet 8 mg PO Q8H #50 tab 03/12/21 (Zofran) oxycodone 10 mg tablet 10 mg PO Q4H PRN #60 tab 03/16/21 morphine 15 mg tablet,extended 15 mg PO Q12H #60 tab 04/07/21 release (MS Contin) diazepam 2 mg tablet 2 mg PO TID PRN #10 tab 04/08/21 Allergies Allergy/AdvReac Type Severity Reaction Status Date / Time gabapentin AdvReac Unknown dizziness, Verified 03/12/21 07:26 lightheadedness ibuprofen AdvReac Unknown nausea and Verified 03/12/21 07:26 vomiting Review of Systems Review of Systems: Constitutional : No Weight loss, No Fever, No Chills, No Night Sweats, No Fatigue, No Malaise ENT/Mouth : No Hearing loss, No Ear Pain, No Nasal Congestion, No Sinus Pain, No Hoarseness, No sore throat, No Rhinorrhea, No Swallowing Difficulty Eyes: No Eye Pain, No Swelling, No Redness, No Foreign Body, No Discharge, No Vision Changes Cardiovascular : Chest muscle spasms, intermittent No SOB, No Dyspnea on Exertion, No Orthopnea, No Edema, No Palpitations Respiratory : No Cough, No Sputum, No Wheezing, No Smoke Exposure, No Dyspnea Gastrointestinal : No Nausea, No Vomiting, No Diarrhea, No Constipation, No abdominal Pain, No Hematochezia, No Melena Genitourinary : no irregular bleeding, No Dysuria, No Urinary Frequency, No Hematuria, No Urinary Incontinence, No Urgency, No Flank Pain, No Urinary Flow Changes, No Hesitancy Musculoskeletal : No joint pain, No Myalgias, No Joint Swelling Skin : No Skin Lesions, No rash Neuro : No Weakness, No Numbness, No Paresthesias, No Loss of Consciousness, No Dizziness, No Headache Psych : No Anxiety/Panic, No Depression, No SI/HI/AH/VH, No Social Issues, Heme/Lymph: No Bruising, No Bleeding,No Lymphadenopathy Endocrine : No Polyuria, No Polydipsia, No Temperature Intolerance PMF Past Medical History Medical History Adenocarcinoma of rectum Chronic pain syndrome H. pylori infection Hx of gastroesophageal reflux (GERD) Lumbar back pain with radiculopathy affecting left lower extremity Rectal cancer Sacroiliitis Tubular adenoma Surgical History H/O tubal ligation History of bursectomy History of esophagogastroduodenoscopy (EGD) History of nasal polypectomy Hx of colonoscopy Hx of hemorrhoidectomy S/P anal fissurectomy Family History Family History Mother Cancer Diabetes HTN (hypertension) Father Diabetes Heart attack Brother HTN (hypertension) Diabetes Heart problem Maternal Aunt Cancer Sister Cancer Social History Social History Household Members: Significant Other Alcohol intake: never Patient Tobacco Use Status: Never used Tobacco Use of substances other than those prescribed or required for medical reasons: No Advance Directives: No Patient : No Physical Exam Vital Signs: Vital Signs: Last Vital Signs Temp 98.2 F 04/08/21 06:37 Pulse 80 04/08/21 07:29 Resp 16 04/08/21 07:29 BP 124/70 04/08/21 07:29 Pulse Ox 99 04/08/21 07:29 Body Mass Index 20.0 Const: Other: Appearance: Alert. Oriented X3. No acute distress. Eyes: Pupils equal, round and reactive to light. ENT: Pharynx normal. Neck: Normal inspection. Neck supple. No lymph nodes noted. No crepitus CVS: Normal heart rate and rhythm. Pulses normal. Normal S1 and S2 Respiratory: No respiratory distress. Breath sounds normal. No Wheezing. No rales Abdomen: Soft and nontender. No rigidity. No distention. good BS x4 Skin: Skin warm and dry. Normal skin color. Normal skin turgor. Extremities: No lower extremity edema. No Lacerations. No Rash Neuro: Oriented X 3. No motor deficit. No sensory deficit. Moving all extermities. No slurred speech. Course Course Course Narrative: I discussed the labs and imaging with the patient, CT scan was negative for pulmonary embolism. Patient states the diazepam help for the muscle spasms but she still having spasms in the chest wall. MDM - Chest Pain Lab Data Result diagrams: 04/08/21 07:15 04/08/21 07:14 Labs: Lab Results 04/08/21 04/08/21 04/08/21 Range/Units 07:14 07:14 07:15 WBC 5.0 (4.8-10.8) X10*3/uL RBC 3.78 L (4.20-5.50) X10*6/uL Hgb 11.7 L (12.0-16.0) g/dl Hct 33.9 L (37-47) % MCV 89.7 (80-98) fL MCH 31.0 (27.0-33.0) pg MCHC 34.5 (31.0-35.0) g/dl RDW 11.5 (11.0-16.0) % Plt Count 149 L D (160-400) X10*3/uL MPV 9.7 (9.4-12.3) fL Immature Gran % (Auto) Cancelled Neut % (Auto) Cancelled Lymph % (Auto) Cancelled [place]arrard % (Auto) Cancelled Eos % (Auto) Cancelled Baso % (Auto) Cancelled Lymph # (Auto) Cancelled [place] # (Auto) Cancelled Eos # (Auto) Cancelled Baso # (Auto) Cancelled Abs Immat Gran (auto) Cancelled Absolute Neuts (auto) Cancelled Absolute Nucleated RBC 0.020 H (0.0-0.012) X10*3/uL Nucleated RBC % (auto) 0.4 H (0.0-0.2) /100WBC Neutrophils % (Manual) 34 L (45-73) % Band Neutrophils % 28 H (3-5) % Lymphocytes % (Manual) 23 (20-40) % Atypical Lymphs % (Man) 1 (0-6) % Monocytes % (Manual) 9 (2-11) % Eosinophils % (Manual) 1 (0-4) % Basophils % (Manual) 1 (0-1) % Metamyelocytes % 3 % Abs Neuts (Manual) 3.1 (2.2-7.9) X10*3/uL Lymphocytes # (Manual) 1.2 (0.6-4.8) X10*3/uL Atyp Lymphs # (Manual) 0.1 x10*3/uL Monocytes # (Manual) 0.5 (0.0-1.2) X10*3/uL Eosinophils # (Manual) 0.1 (0.0-0.8) X10*3/UL Basophils # (Manual) 0.1 (0.0-0.3) X10*3/uL Metamyelocytes # 0.2 X10*3/uL Toxic Granulation PRESENT Platelet Estimate SLIGHTLY DECREASED (NORMAL) Plt Morphology Comment NORMAL RBC Morphology NORMAL D-Dimer 441 NG/ML Sodium 139 (135-145) mmol/L Potassium 4.0 (3.3-5.1) mmol/L Chloride 103 (96-108) mmol/L Carbon Dioxide 24 (22-29) mmol/L Anion Gap 16 (12-20) BUN 5 L (9-16) mg/dL Creatinine 0.76 (0.5-1.4) mg/dL Estim Creat Clear Calc 66.0 Estimated GFR > 60 Random Glucose 96 (60-115) mg/dL Calcium 9.4 D (8.4-10.2) mg/dL Magnesium 1.6 (1.6-2.6) mg/dL Total Bilirubin 0.5 (0.0-1.0) mg/dL Direct Bilirubin 0.2 (0.0-0.5) mg/dL AST 18 (5-31) U/L ALT 13 (0-31) U/L Alkaline Phosphatase 99 (39-117) U/L Troponin I High Sens (<3.5-17.0) ng/L Total Protein 6.3 L (6.5-8.0) g/dL Albumin 3.8 (3.5-5.0) g/dL 04/08/21 Range/Units 07:15 WBC (4.8-10.8) X10*3/uL RBC (4.20-5.50) X10*6/uL Hgb (12.0-16.0) g/dl Hct (37-47) % MCV (80-98) fL MCH (27.0-33.0) pg MCHC (31.0-35.0) g/dl RDW (11.0-16.0) % Plt Count (160-400) X10*3/uL MPV (9.4-12.3) fL Immature Gran % (Auto) Neut % (Auto) Lymph % (Auto) Garrard % (Auto) Eos % (Auto) Baso % (Auto) Lymph # (Auto) Garrard # (Auto) Eos # (Auto) Baso # (Auto) Abs Immat Gran (auto) Absolute Neuts (auto) Absolute Nucleated RBC (0.0-0.012) X10*3/uL Nucleated RBC % (auto) (0.0-0.2) /100WBC Neutrophils % (Manual) (45-73) % Band Neutrophils % (3-5) % Lymphocytes % (Manual) (20-40) % Atypical Lymphs % (Man) (0-6) % Monocytes % (Manual) (2-11) % Eosinophils % (Manual) (0-4) % Basophils % (Manual) (0-1) % Metamyelocytes % % Abs Neuts (Manual) (2.2-7.9) X10*3/uL Lymphocytes # (Manual) (0.6-4.8) X10*3/uL Atyp Lymphs # (Manual) x10*3/uL Monocytes # (Manual) (0.0-1.2) X10*3/uL Eosinophils # (Manual) (0.0-0.8) X10*3/UL Basophils # (Manual) (0.0-0.3) X10*3/uL Metamyelocytes # X10*3/uL Toxic Granulation Platelet Estimate (NORMAL) Plt Morphology Comment RBC Morphology D-Dimer NG/ML Sodium (135-145) mmol/L Potassium (3.3-5.1) mmol/L Chloride (96-108) mmol/L Carbon Dioxide (22-29) mmol/L Anion Gap (12-20) BUN (9-16) mg/dL Creatinine (0.5-1.4) mg/dL Estim Creat Clear Calc Estimated GFR Random Glucose (60-115) mg/dL Calcium (8.4-10.2) mg/dL Magnesium (1.6-2.6) mg/dL Total Bilirubin (0.0-1.0) mg/dL Direct Bilirubin (0.0-0.5) mg/dL AST (5-31) U/L ALT (0-31) U/L Alkaline Phosphatase (39-117) U/L Troponin I High Sens < 3.5 (<3.5-17.0) ng/L Total Protein (6.5-8.0) g/dL Albumin (3.5-5.0) g/dL Imaging Data CTA/PE study: Radiologist's impression: Total exam dose-length product 158 mGy-cm FINDINGS: QUALITY OF STUDY/CONTRAST BOLUS: Satisfactory. PULMONARY ARTERIES: No central or segmental pulmonary emboli.? THORACIC AORTA: No aneurysm or dissection. LUNG: There is a 5 mm superior segment left lower lobe nodule axial image 150 series 7. There is a 6 mm left lower lobe nodule adjacent to the diaphragm axial image 324 series 7. These do not appear appreciably changed in size from PET/CT scan October 2020. PLEURA: No pleural effusion or pneumothorax. MEDIASTINUM: Normal heart size.? No pericardial effusion.? No hilar or mediastinal lymphadenopathy.? No evidence of septal bowing or right heart strain. CHEST WALL/AXILLA: No axillary or internal mammary lymphadenopathy. OSSEOUS STRUCTURES: No acute or suspicious osseous abnormality.? UPPER ABDOMEN: Unremarkable.? No reflux of contrast into the hepatic veins to suggest elevated right heart pressures. CT/CT angio chest PE protocol IMPRESSION: No evidence of pulmonary embolism. Stable left lower lobe pulmonary nodules. ? VTE: negative ECG Data ECG #1: Attestation: I personally reviewed and interpreted this ECG as follows: (Heart rate 99, sinus rhythm, nonspecific is the segment depression in V3, no reciprocal changes, no T-wave inversion, QTC 451) Discharge Plan Discharge Clinical Impression: Cramps, muscle, general Patient Disposition: Home, Self-Care Instructions: Muscle Spasm (ED) Additional Instructions: Please follow-up with your primary care physician tomorrow. If you have any worsening or new symptoms, please return to the emergency room or call 911 Prescriptions: New diazepam 2 mg tablet 2 mg PO TID PRN (Reason: muscle spasm) Qty: 10 RF: 0 No Action morphine [MS Contin] 30 mg Tablet Extended Release 30 mg PO BID@0900,1700 Qty: 60 RF: 0 ondansetron HCl [Zofran] 4 mg Tablet 8 mg PO Q8H Qty: 50 RF: 5 dexamethasone [Decadron] 4 mg Tablet 4 mg PO BID Qty: 100 RF: 4 oxycodone 10 mg Tablet 10 mg PO Q4H PRN (Reason: Breakthrough Pain, Moderate) Qty: 60 RF: 0 morphine [MS Contin] 15 mg Tablet Extended Release 15 mg PO Q12H Qty: 60 RF: 0
[2021-04-08 07:29] VITALS: BP 124/70; PULSE 80; RESP 16; O2SAT 99
[2021-04-08 07:31] LABS: Hematocrit 33.9 % (37-47); Hemoglobin 11.7 g/dl (12.0-16.0); Mean Corpuscular HGB Conc 34.5 g/dl (31.0-35.0); Mean Corpuscular Volume 89.7 fL (80-98); Mean Platelet Volume 9.7 fL (9.4-12.3); NRBC Pct Auto 0.4 /100WBC (0.0-0.2); Platelet Count 149 X10*3/uL (160-400); Red Blood Count 3.78 X10*6/uL (4.20-5.50); Red Cell Distribution Width 11.5 % (11.0-16.0)
[2021-04-08 07:39] LABS: D Dimer 441 NG/ML
[2021-04-08 07:42] LABS: WBC ABN SCTR FOR CBC 1
[2021-04-08] MEDS: diazePAM 2 MG TABLET PO (07:45)
[2021-04-08] MEDS: 0.9 % Sodium Chloride 1,000 ML 999 ML IVCONT (07:45)
--- NOTE | 2021-04-08 07:46 | PC.NURSE ---
pt resting quietly in bed. states CP is improved and describes as muscle spasms . skin pwd. unlaboed resp. ls clear all yarb[place].
[2021-04-08 07:48] LABS: Alanine Aminotransferase 13 U/L (0-31); Albumin Level 3.8 g/dL (3.5-5.0); Alkaline Phosphatase 99 U/L (39-117); Anion Gap 16 (12-20); Aspartate Amino Transferase 18 U/L (5-31); Bilirubin Direct 0.2 mg/dL (0.0-0.5); Bilirubin Total 0.5 mg/dL (0.0-1.0); Blood Urea Nitrogen 5 mg/dL (9-16); Calcium 9.4 mg/dL (8.4-10.2); Carbon Dioxide 24 mmol/L (22-29); Chloride 103 mmol/L (96-108); Estimated Glomerular Filt Rate > 60; Glucose Random 96 mg/dL (60-115); Magnesium 1.6 mg/dL (1.6-2.6); Sodium 139 mmol/L (135-145); Total Protein 6.3 g/dL (6.5-8.0)
[2021-04-08 07:52] LABS: Troponin-I High Sensitivity < 3.5 ng/L (<3.5-17.0)
[2021-04-08 08:17] LABS: Atypical Lymphs Percent Manual 1 % (0-6); Band Neutrophils Percent 28 % (3-5); Basophils Percent Manual 1 % (0-1); Eosinophils Percent Manual 1 % (0-4); Lymphocytes Percent Manual 23 % (20-40); Metamyelocytes Percent 3 %; Monocytes Percent Manual 9 % (2-11); Neutrophils Percent Manual 34 % (45-73)
[2021-04-08 08:18] LABS: Toxic Granulation PRESENT
[2021-04-08 08:20] LABS: Platelet Estimate SLIGHTLY DECREASED (NORMAL); Platelet Morphology Comment NORMAL; RBC Morphology NORMAL
[2021-04-08 08:21] LABS: Atypical Lymph Absolute Manual 0.1 x10*3/uL; Basophils Abs Manual 0.1 X10*3/uL (0.0-0.3); Eosinophils Absolute Manual 0.1 X10*3/UL (0.0-0.8); Lymphocytes Absolute Manual 1.2 X10*3/uL (0.6-4.8); Metamyelocytes Absolute 0.2 X10*3/uL; Monocytes Absolute Manual 0.5 X10*3/uL (0.0-1.2); Neutrophils Absolute Manual 3.1 X10*3/uL (2.2-7.9)
[2021-04-08] MEDS: iohexoL 350 MG/ML 100 ML INFUS..BTL IV (09:20)
--- NOTE | 2021-04-08 10:10 | PC.NURSE ---
pt states pain persists and has requested additional medication. Provider aware.
[2021-04-08] MEDS: Morphine Sulfate 2 MG/ML CARTRIDGE IVPUSH (10:26)
[2021-04-08 10:29] VITALS: BP 114/68; PULSE 97; RESP 18; O2SAT 98
[2021-04-08 10:58] VITALS: BP 107/72; PULSE 90; RESP 16
== END 2021-04-08 10:59 | disposition home or self-care (01) ==
PROVIDERS: Emergency Provider Emergency Medicine; PCP Internal Medicine
DX: R25.2 Cramp and spasm (principal); R07.9 Chest pain, unspecified; G89.4 Chronic pain syndrome
CPT/HCPCS: 36415; 71275; 80048; 80076; 83735; 84484; 85007; 85027; 85379; 93005; 96361; 96374; 99284; J2270; Q9967

== ENCOUNTER 2021-05-02 08:25 | Emergency (ER) | payer OTHER, SELFPAY ==
[2021-05-02 08:39] VITALS: BP 127/93; PULSE 93; RESP 16; O2SAT 100; BMI 19.3
--- NOTE | 2021-05-02 08:49 | ED_ITS ---
HPI - Nausea/Vomiting/Diarrhea General Chief complaint: Nausea/Vomiting/Diarrhea Stated complaint: diarrhea, weakness Time Seen by Provider: 05/02/21 08:49 History of Present Illness HPI Narrative: Patient is a 50-year-old female with a history of colon cancer. Currently undergoing chemotherapy. Presents today with having nausea diarrhea. Patient had chemotherapy few days ago. No chest pain or shortness of breath no diaphoresis. Positive generalized malaise. History of similar symptoms in the past. Related Data Previous Rx's Medication Instructions Recorded morphine 30 mg tablet,extended 30 mg PO BID@0900,1700 #60 tab 03/09/21 release (MS Contin) dexamethasone 4 mg tablet 4 mg PO BID #100 tab 03/12/21 (Decadron) ondansetron HCl 4 mg tablet 8 mg PO Q8H #50 tab 03/12/21 (Zofran) morphine 15 mg tablet,extended 15 mg PO Q12H #60 tab 04/07/21 release (MS Contin) diazepam 2 mg tablet 2 mg PO TID PRN #10 tab 04/08/21 oxycodone 10 mg tablet 10 mg PO Q8H PRN #60 tab 04/13/21 oxycodone 20 mg tablet,crush 20 mg PO Q12H #60 tab 05/01/21 resistant,extended release 12 hr (OxyContin) ondansetron 4 mg disintegrating 4 mg PO TID PRN 5 Days #10 tab 05/02/21 tablet Allergies Allergy/AdvReac Type Severity Reaction Status Date / Time gabapentin AdvReac Unknown dizziness, Verified 03/12/21 07:26 lightheadedness ibuprofen AdvReac Unknown nausea and Verified 03/12/21 07:26 vomiting Review of Systems Review of Systems: Positive nausea, diarrhea positive generalized malaise All systems reviewed otherwise negative Yes all other systems are reviewed and are negative PMFSH Past Medical History Attestation statement: The following information was validated with the patient. Medical History Adenocarcinoma of rectum Chronic pain syndrome H. pylori infection Hx of gastroesophageal reflux (GERD) Lumbar back pain with radiculopathy affecting left lower extremity Rectal cancer Sacroiliitis Tubular adenoma Surgical History H/O tubal ligation History of bursectomy History of esophagogastroduodenoscopy (EGD) History of nasal polypectomy Hx of colonoscopy Hx of hemorrhoidectomy S/P anal fissurectomy Family History Family History Mother Cancer Diabetes HTN (hypertension) Father Diabetes Heart attack Brother HTN (hypertension) Diabetes Heart problem Maternal Aunt Cancer Sister Cancer Social History Social History Household Members: Significant Other Alcohol intake: never Patient Tobacco Use Status: Never used Tobacco Advance Directives: No Physical Exam Vital Signs: Vital Signs: Last Vital Signs Pulse 93 05/02/21 08:39 Resp 16 05/02/21 08:39 BP 127/93 H 05/02/21 08:39 Pulse Ox 100 05/02/21 08:39 Body Mass Index 19.3 Appearance: Alert. Oriented X3. No acute distress. Eyes: Pupils equal, round and reactive to light. ENT: Pharynx normal. Neck: Normal inspection. Neck supple. No lymph nodes noted. No crepitus CVS: Normal heart rate and rhythm. Pulses normal. Normal S1 and S2 Respiratory: No respiratory distress. Breath sounds normal. No Wheezing. No rales Abdomen: Soft and nontender. No rigidity. No distention. good BS x4 Skin: Skin warm and dry. Normal skin color. Normal skin turgor. Extremities: No lower extremity edema. Neurovascular intact to all extremities. No Lacerations. No Rash Neuro: Oriented X 3. No motor deficit. No sensory deficit. Moving all extermities. No slurred speech MDM - Nausea/Vomiting/Diarrhea MDM Narrative Medical decision making narrative: Patient given IV fluids. Symptom improved. Zofran for nausea. Reexamine repeated abdominal exam was soft nontender. Has elevated white count but patient just had her neuprogen 3 days prior. Finding was discussed with Oncology. Patient to be discharged home. In stable condition. Medical Records Attestation: I reviewed the patient's medical records. Lab Data Attestation: I reviewed the patient's lab results. Result diagrams: 05/02/21 09:04 05/02/21 09:04 Labs: Lab Results 05/02/21 05/02/21 05/02/21 Range/Units 09:04 09:04 09:32 WBC 36.1 H* (4.8-10.8) X10*3/uL RBC 3.31 L (4.20-5.50) X10*6/uL Hgb 10.3 L (12.0-16.0) g/dl Hct 30.7 L (37.0-47.0) % MCV 92.7 (80.0-98.0) fL MCH 31.1 (27.0-33.0) pg MCHC 33.6 (31.0-35.0) g/dl RDW 14.6 (11.0-16.0) % Plt Count 101 L D (160-400) X10*3/uL MPV 10.7 (9.4-12.3) fL Immature Gran % (Auto) Cancelled Neut % (Auto) Cancelled Lymph % (Auto) Cancelled [place] % (Auto) Cancelled Eos % (Auto) Cancelled Baso % (Auto) Cancelled Lymph # (Auto) Cancelled [place] # (Auto) Cancelled Eos # (Auto) Cancelled Baso # (Auto) Cancelled Abs Immat Gran (auto) Cancelled Absolute Neuts (auto) Cancelled Absolute Nucleated RBC 0.020 H (0.0-0.012) X10*3/uL Nucleated RBC % (auto) 0.1 (0.0-0.2) /100WBC Neutrophils % (Manual) 96 H (45-73) % Band Neutrophils % 2 L (3-5) % Lymphocytes % (Manual) 2 L (20-40) % Abs Neuts (Manual) 35.4 H (2.0-8.3) X10*3/uL Lymphocytes # (Manual) 0.7 L (1.2-4.9) X10*3/uL Hypersegmented Neuts PRESENT Dohle Bodies PRES Platelet Estimate DECREASED (NORMAL) Plt Morphology Comment NORMAL RBC Morphology NORMAL Sodium 140 (135-145) mmol/L Potassium 3.4 (3.3-5.1) mmol/L Chloride 107 (96-108) mmol/L Carbon Dioxide 25 (22-29) mmol/L Anion Gap 11 L (12-20) BUN 7 L D (9-16) mg/dL Creatinine 0.65 (0.5-1.4) mg/dL Estim Creat Clear Calc 74.7 Estimated GFR > 60 Random Glucose 98 (60-115) mg/dL Calcium 7.8 L D (8.4-10.2) mg/dL Total Bilirubin 1.0 (0.0-1.0) mg/dL Direct Bilirubin 0.4 (0.0-0.5) mg/dL AST 31 (5-31) U/L ALT 13 (0-31) U/L Alkaline Phosphatase 173 H D (39-117) U/L Total Protein 5.9 L (6.5-8.0) g/dL Albumin 3.5 (3.5-5.0) g/dL Lipase 29 (8-78) U/L Urine Color DK YELLOW Urine Appearance HAZY Urine pH 6.0 (5.0-8.0) Ur Specific [place] >= 1.030 H (1.005-1.025) Urine Protein 1+ H (NEG-TRACE) MG/DL Urine Glucose (UA) NEG (NEG) MG/DL Urine Ketones 15 (NEG) MG/DL Urine Blood 1+ H (NEG) Urine Nitrite POS H (NEG) Ur Leukocyte Esterase NEG (NEG) Urine RBC 1-4 (0) /HPF Urine WBC 10-14 H (0-4) /HPF Urine WBC Clumps Ur Squamous Epith Cells 1+ /LPF Ur Renal Epithelial Cell [place] Biurate Crystals Calcium Carbonate Cryst Calcium Phosphate Cryst Calcium Oxalate Crystal Leucine Crystals Cystine Crystals Uric Acid Crystals Triple Phos Crystals Talc Crystals Tyrosine Crystals Other Crystals Amorphous Sediment 1+ /LPF Urine Bacteria TRACE /LPF Epithelial Casts Fatty Casts Hyaline Casts Granular Casts Waxy Casts RBC Casts WBC Casts Other Casts Urine Mucus 2+ /LPF Urine Trichomonas Urine Yeast Urine Sperm Ur Oval Fat Bodies 05/02/21 Range/Units 09:32 WBC (4.8-10.8) X10*3/uL RBC (4.20-5.50) X10*6/uL Hgb (12.0-16.0) g/dl Hct (37.0-47.0) % MCV (80.0-98.0) fL MCH (27.0-33.0) pg MCHC (31.0-35.0) g/dl RDW (11.0-16.0) % Plt Count (160-400) X10*3/uL MPV (9.4-12.3) fL Immature Gran % (Auto) Neut % (Auto) Lymph % (Auto) [place] % (Auto) Eos % (Auto) Baso % (Auto) Lymph # (Auto) [place] # (Auto) Eos # (Auto) Baso # (Auto) Abs Immat Gran (auto) Absolute Neuts (auto) Absolute Nucleated RBC (0.0-0.012) X10*3/uL Nucleated RBC % (auto) (0.0-0.2) /100WBC Neutrophils % (Manual) (45-73) % Band Neutrophils % (3-5) % Lymphocytes % (Manual) (20-40) % Abs Neuts (Manual) (2.0-8.3) X10*3/uL Lymphocytes # (Manual) (1.2-4.9) X10*3/uL Hypersegmented Neuts Dohle Bodies Platelet Estimate (NORMAL) Plt Morphology Comment RBC Morphology Sodium (135-145) mmol/L Potassium (3.3-5.1) mmol/L Chloride (96-108) mmol/L Carbon Dioxide (22-29) mmol/L Anion Gap (12-20) BUN (9-16) mg/dL Creatinine (0.5-1.4) mg/dL Estim Creat Clear Calc Estimated GFR Random Glucose (60-115) mg/dL Calcium (8.4-10.2) mg/dL Total Bilirubin (0.0-1.0) mg/dL Direct Bilirubin (0.0-0.5) mg/dL AST (5-31) U/L ALT (0-31) U/L Alkaline Phosphatase (39-117) U/L Total Protein (6.5-8.0) g/dL Albumin (3.5-5.0) g/dL Lipase (8-78) U/L Urine Color Cancelled Urine Appearance Cancelled Urine pH Cancelled (5.0-8.0) Ur Specific [place] Cancelled (1.005-1.025) Urine Protein Cancelled (NEG-TRACE) MG/DL Urine Glucose (UA) Cancelled (NEG) MG/DL Urine Ketones Cancelled (NEG) MG/DL Urine Blood Cancelled (NEG) Urine Nitrite Cancelled (NEG) Ur Leukocyte Esterase Cancelled (NEG) Urine RBC Cancelled (0) /HPF Urine WBC Cancelled (0-4) /HPF Urine WBC Clumps Cancelled Ur Squamous Epith Cells Cancelled /LPF Ur Renal Epithelial Cell Cancelled [place] Biurate Crystals Cancelled Calcium Carbonate Cryst Cancelled Calcium Phosphate Cryst Cancelled Calcium Oxalate Crystal Cancelled Leucine Crystals Cancelled Cystine Crystals Cancelled Uric Acid Crystals Cancelled Triple Phos Crystals Cancelled Talc Crystals Cancelled Tyrosine Crystals Cancelled Other Crystals Cancelled Amorphous Sediment Cancelled /LPF Urine Bacteria Cancelled /LPF Epithelial Casts Cancelled Fatty Casts Cancelled Hyaline Casts Cancelled Granular Casts Cancelled Waxy Casts Cancelled RBC Casts Cancelled WBC Casts Cancelled Other Casts Cancelled Urine Mucus Cancelled /LPF Urine Trichomonas Cancelled Urine Yeast Cancelled Urine Sperm Cancelled Ur Oval Fat Bodies Cancelled Discharge Plan Discharge Clinical Impression: Nausea & vomiting Patient Disposition: Home, Self-Care Instructions: Acute Nausea and Vomiting (ED) Prescriptions: New ondansetron 4 mg tablet,disintegrating 4 mg PO TID PRN (Reason: nausea and vomiting) 5 Days Qty: 10 RF: 0 No Action morphine [MS Contin] 30 mg Tablet Extended Release 30 mg PO BID@0900,1700 Qty: 60 RF: 0 ondansetron HCl [Zofran] 4 mg Tablet 8 mg PO Q8H Qty: 50 RF: 5 dexamethasone [Decadron] 4 mg Tablet 4 mg PO BID Qty: 100 RF: 4 morphine [MS Contin] 15 mg Tablet Extended Release 15 mg PO Q12H Qty: 60 RF: 0 oxycodone 10 mg Tablet 10 mg PO Q8H PRN (Reason: Breakthrough Pain, Moderate) Qty: 60 RF: 0 oxycodone [OxyContin] 20 mg Tablet,Oral Only,Ext.Rel.12 Hr 20 mg PO Q12H Qty: 60 RF: 0 diazepam 2 mg tablet 2 mg PO TID PRN (Reason: muscle spasm) Qty: 10 RF: 0
[2021-05-02] MEDS: 0.9 % Sodium Chloride 1,000 ML 999 ML IV ×2 (09:16→10:30)
[2021-05-02] MEDS: ondansetron HCL 4 MG/2 ML VIAL IVPUSH ×2 (09:30→10:43)
[2021-05-02 09:35] LABS: PLT CLUMP 1
[2021-05-02 09:37] LABS: Hematocrit 30.7 % (37.0-47.0); Hemoglobin 10.3 g/dl (12.0-16.0); Mean Corpuscular HGB Conc 33.6 g/dl (31.0-35.0); Mean Corpuscular Hemoglobin 31.1 pg (27.0-33.0); Mean Corpuscular Volume 92.7 fL (80.0-98.0); Mean Platelet Volume 10.7 fL (9.4-12.3); NRBC Pct Auto 0.1 /100WBC (0.0-0.2); Platelet Count 101 X10*3/uL (160-400); Red Blood Count 3.31 X10*6/uL (4.20-5.50); Red Cell Distribution Width 14.6 % (11.0-16.0)
--- NOTE | 2021-05-02 09:41 | PC.NURSE ---
pt alert and oriented, vss. pt reports she has colon cancer and gets chemo therapy every 2 weeks, after each treatment she has nausea and is very weak. pt states she feels very dehydrated right now. she denies diarrhea/abdominal pain/fever. pt sees Dr. Suarez and states she told her to go in to the office on Tuesday if the symptoms persists. pt has a power port which was accessed here in the ed. Pt getting fluids via her port and labs drawn from her port. pt resting quietly. no other complaints. will continue to monitor.
[2021-05-02 09:45] LABS: White Blood Count 36.1 X10*3/uL (4.8-10.8)
[2021-05-02 09:46] LABS: Appearance Urine HAZY; Color Urine DK YELLOW; Glucose Urine UA NEG (NEG); Leukocyte Esterase Urine NEG (NEG); Specific Gravity - Urine >= 1.030 (1.005-1.025); Urine Blood 1+ (NEG); Urine Ketones 15 MG/DL (NEG); Urine Protein 1+ MG/DL (NEG-TRACE)
[2021-05-02 09:49] LABS: Alanine Aminotransferase 13 U/L (0-31); Albumin Level 3.5 g/dL (3.5-5.0); Alkaline Phosphatase 173 U/L (39-117); Anion Gap 11 (12-20); Aspartate Amino Transferase 31 U/L (5-31); Bilirubin Direct 0.4 mg/dL (0.0-0.5); Blood Urea Nitrogen 7 mg/dL (9-16); Calcium 7.8 mg/dL (8.4-10.2); Carbon Dioxide 25 mmol/L (22-29); Chloride 107 mmol/L (96-108); Creatinine Clr Calc Pharmacy 74.7; Estimated Glomerular Filt Rate > 60; Glucose Random 98 mg/dL (60-115); Lipase 29 U/L (8-78); Potassium 3.4 mmol/L (3.3-5.1); Sodium 140 mmol/L (135-145); Total Protein 5.9 g/dL (6.5-8.0)
[2021-05-02 09:54] LABS: Nitrite Urine POS (NEG); UACC Culture Trigger YES
[2021-05-02 09:56] LABS: Amorphous Sediment Urine 1+ /LPF; Bacteria Urine TRACE /LPF; Mucus Urine 2+ /LPF; Squamous Epithelial Cell Urine 1+ /LPF
[2021-05-02 09:59] LABS: Band Neutrophils Percent 2 % (3-5); Lymphocytes Absolute Manual 0.7 X10*3/uL (1.2-4.9); Lymphocytes Percent Manual 2 % (20-40); Neutrophils Absolute Manual 35.4 X10*3/uL (2.0-8.3); Neutrophils Percent Manual 96 % (45-73)
[2021-05-02 10:03] LABS: Dohle Bodies PRES
[2021-05-02 10:11] LABS: Hypersegmented Neutrophils PRESENT; Platelet Estimate DECREASED (NORMAL); RBC Morphology NORMAL
[2021-05-02 10:12] LABS: Platelet Morphology Comment NORMAL
[2021-05-02] MEDS: Morphine Sulfate 4 MG/ML CARTRIDGE IVPUSH (10:43)
--- NOTE | 2021-05-02 10:46 | PC.NURSE ---
pt requested meds for pain 02/03. pain med given via power port as documented, fluids infusing without difficulty, pt tolerating well. vss. will continue to monitor.
== END 2021-05-02 11:49 | disposition home or self-care (01) ==
PROVIDERS: Emergency Provider Emergency Medicine Emergency Medical Services; PCP Internal Medicine
DX: R11.2 Nausea with vomiting, unspecified (principal); R19.7 Diarrhea, unspecified; Z79.899 Other long term (current) drug therapy
CPT/HCPCS: 36415; 80048; 80076; 81001; 83690; 85007; 85027; 96361; 96374; 96375; 96376; 99284; J2270; J2405

== ENCOUNTER → 2021-06-24 09:22 | Outpatient (BNVA) | payer OTHER, SELFPAY | PROVIDERS: PCP Internal Medicine; Referring Provider Internal Medicine; Visit Provider Surgery | DX: C20 Malignant neoplasm of rectum (principal) | CPT/HCPCS: 99212 ==

== ENCOUNTER 2021-08-30 11:19 | Emergency (ER) | payer OTHER, SELFPAY ==
[2021-08-30 11:24] VITALS: BP 150/96; PULSE 76; RESP 16; TEMP 36.6; O2SAT 95; BMI 22.8
--- NOTE | 2021-08-30 11:40 | ED.GENADULT ---
HPI - General Adult General Chief complaint: General Medical Stated complaint: coloy bag leaking needs supplies Time Seen by Provider: 08/30/21 11:40 Source: patient Mode of arrival: ambulatory Limitations: no limitations History of Present Illness HPI narrative: Pt had colostomy placed 1 month ago at [facility]. Pt ran out of supplies (she is waiting for her order to come in). Pt's bag is leaking and she is making due with tape. pt ostomy is irratated. No other complaints, no fever. Related Data Home Medications Medication Instructions Recorded Confirmed megestrol 400 mg/10 mL (40 mg/mL) 400 mg PO DAILY 08/27/21 08/27/21 oral suspension Previous Rx's Medication Instructions Recorded oxycodone 20 mg tablet,crush 20 mg PO Q12H #60 tab 07/29/21 resistant,extended release 12 hr (OxyContin) oxycodone 10 mg tablet 10 mg PO Q8H PRN #60 tab 08/21/21 Allergies Allergy/AdvReac Type Severity Reaction Status Date / Time gabapentin AdvReac Unknown dizziness, Verified 08/30/21 11:29 lightheadedness ibuprofen AdvReac Unknown nausea and Verified 08/30/21 11:29 vomiting Review of Systems Review of Systems: Constitutional : No Fever, No Chills, No changes in PO intake, Cardiovascular : No Chest Pain, No SOB Respiratory : No Cough, No Sputum, No Wheezing,No Dyspnea Gastrointestinal : No Nausea, No Vomiting, Genitourinary : No Dysuria Musculoskeletal : No Myalgias Skin : No rash, no facial swelling or redness, Neuro : No Weakness, No Numbness, No Headache Psych : No SI/HI/thoughts of self injury Yes all other systems are reviewed and are negative [facility] Past Medical History Medical History Adenocarcinoma of rectum Chronic pain syndrome H. pylori infection Hx of gastroesophageal reflux (GERD) Lumbar back pain with radiculopathy affecting left lower extremity Rectal cancer Sacroiliitis Tubular adenoma Surgical History H/O tubal ligation History of bursectomy History of esophagogastroduodenoscopy (EGD) History of nasal polypectomy Hx of colonoscopy Hx of hemorrhoidectomy Hx of ileostomy S/P anal fissurectomy Family History Family History Mother Diabetes HTN (hypertension) Father Diabetes Heart attack Brother Diabetes Heart problem HTN (hypertension) Maternal Aunt Breast cancer Sister Uterus cancer Maternal Aunt Breast cancer Mother Lung cancer Social History Social History Household Members: Significant Other Housing: House Are you a primary child care worker to a significant other at home: No Do you presently have visiting nurse or other home services: Yes Alcohol intake: never Patient Tobacco Use Status: Never used Tobacco Advance Directives: No Advance Directives Information Provided: No Patient : No service: No Current occupational status: unemployed Physical Exam ED Vital Signs: Vital Signs - 24 hr 08/30/21 11:24 Temperature 97.8 F Pulse Rate 76 Respiratory Rate 16 Blood Pressure 150/96 H Pulse Oximetry 95 BMI result Body Mass Index 22.8 vital signs have been reviewed as normal and appeared to be correct.? Blood pressure 150/96.? Heart rate normal.? Respiration rate normal.? Temperature normal.? Oxygen saturation normal. Appearance: Alert. Oriented X3. No acute distress. ? Head: Normal external exam. Normocephalic. CVS: Normal heart rate and rhythm. Heart sound normal. No murmurs noted. Respiratory: No respiratory distress. Painless inspiration. Breath sounds normal. Abdomen: Soft and nontender. Back: ?No CVA tenderness.? Full range of motion noted. Skin: Skin warm and dry.? Normal skin color.? Normal skin turgor. Leaking noted around colostomy bag with mild to moderate skin irration. Extremities: No lower extremity edema. ? Extremities exhibit normal range of motion.? Extremities nontender. Normal gait Neuro: Oriented X 3.? No motor deficit noted. No sensory deficit noted. Course Course Course Narrative: Colostoly care by RN with new dressing applied with nystatin ointment. Pt will follow up with provider at [facility] tomorrow (she is scheduled for an MRI there tomorrow). Discharge Plan Discharge Clinical Impression: Colostomy complication, unspecified Patient Disposition: Home, Self-Care Additional Instructions: Use colostomy supplies given you today in ED. 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 You are sent home with nystatin ointment and skin care ointment to area the is irratated. Return if worse. Prescriptions: No Action oxycodone [OxyContin] 20 mg Tablet,Oral Only,Ext.Rel.12 Hr 20 mg PO Q12H Qty: 60 0RF oxycodone 10 mg Tablet 10 mg PO Q8H PRN (Reason: Breakthrough Pain, Moderate) Qty: 60 0RF megestrol 400 mg/10 mL (40 mg/mL) suspension 400 mg PO DAILY 0RF Referrals: Ky Lin MD [Primary Care Provider] - 2 days Yenni Nichols PA [Emergency Midlevel Provider] - 2 days
--- NOTE | 2021-08-30 12:15 | PC.NURSE ---
touched base with patient on waiting for medication from pharmacy prior to changing ostomy bag for her.
[2021-08-30] MEDS: Nystatin Ointment 15 GM TUBE 1 APPL TOPICAL (12:55)
== END 2021-08-30 12:58 | disposition home or self-care (01) ==
PROVIDERS: Emergency Provider Emergency Medicine; PCP Internal Medicine
DX: K94.00 Colostomy complication, unspecified (principal); Z79.899 Other long term (current) drug therapy
CPT/HCPCS: 99283

== ENCOUNTER 2021-10-30 08:29 | Outpatient (REF) | payer OTHER, SELFPAY ==
--- NOTE | ~2021-10-30 | MM_ITS ---
EXAMINATION: MM SCREENING DIGITAL BREAST TOMOSYNTHESIS, BILATERAL CLINICAL INFORMATION: Screening. Asymptomatic. Prior history rectal cancer, port present. The lifetime risk of breast cancer based on the Tyrer-Cuzick Model is 16%. COMPARISON: Mammography: 05/03/2014. CTA chest 04/08/2021. TECHNIQUE: Digital breast tomosynthesis is performed in both the craniocaudal and mediolateral oblique views along with computer-aided detection (CAD). Synthesized 2D images are generated from the tomosynthesis. FINDINGS: There are scattered areas of fibroglandular density (ACR BI-RADS breast composition Category b). There are no significant masses, abnormal calcifications, or other abnormalities. Parenchymal pattern is similar to prior studies. There is a port partially in [id number] posterior right axilla on MLO view. The skin contours are smooth. No significant changes. MM/MM tomosynthesis screening BI IMPRESSION: No mammographic evidence of malignancy. ASSESSMENT: BI-RADS 1: Negative RECOMMENDATION: Routine annual mammography screening. This patient's information was entered into a reminder system with a target due date for their next mammogram.
== END 2021-10-30 08:30 | disposition home or self-care (01) ==
LOC: HO.MAMMO 08:29
PROVIDERS: Visit Provider Internal Medicine
DX: Z12.31 Encounter for screening mammogram for malignant neoplasm of breast (principal)
CPT/HCPCS: 77063; 77067

== ENCOUNTER 2021-11-27 13:03 | Outpatient (REF) | payer OTHER, SELFPAY ==
[2021-12-03 03:22] LABS: HPV 16 RNA NOT DETECTED (NOT DETECTED); HPV mRNA E6/E7 rflx Detected (Not Detected)
== END 2021-11-27 13:04 | disposition home or self-care (01) ==
LOC: HO.LAB 13:03
PROVIDERS: PCP Internal Medicine; Visit Provider Advanced Practice Midwife
DX: Z01.419 Encounter for gynecological examination (general) (routine) without abnormal findings (principal); R87.619 Unspecified abnormal cytological findings in specimens from cervix uteri
CPT/HCPCS: 87624; 87625; 88142

== ENCOUNTER → 2021-12-16 15:05 | Outpatient (BNVA) | payer OTHER, SELFPAY | PROVIDERS: PCP Internal Medicine; Referring Provider Internal Medicine Medical Oncology; Visit Provider Nurse Practitioner Family | DX: K21.9 Gastro-esophageal reflux disease without esophagitis (principal) | CPT/HCPCS: 99212 ==

== ENCOUNTER 2021-12-22 11:55 | Day surgery (SDC) | payer OTHER, SELFPAY ==
--- NOTE | 2021-12-21 12:10 | HO.ANESPROP2 ---
Documented by User: Ana Birch NP 12/21/21 12:14 HPI - Anesthesia Eval Consult details Narrative: 51yo F for Upper Endoscopy Rectal CA s/p ileostomy Chronic opioids PMFSH Active Problems Active Problems: All Active Problems (Updated 08/31/21 @ 00:01 by Dudley Hernandez) Left ovarian cyst (Acute) Tubular adenoma (Acute) Adenocarcinoma of rectum (Acute) Rectal cancer (Acute) Chronic pain syndrome (Acute) Sacroiliitis (Acute) Lumbar back pain with radiculopathy affecting left lower extremity (Acute) Past Medical History Medical History Adenocarcinoma of rectum Chronic pain syndrome H. pylori infection Hx of gastroesophageal reflux (GERD) Lumbar back pain with radiculopathy affecting left lower extremity Rectal cancer Sacroiliitis Tubular adenoma Family History Family History Mother Diabetes HTN (hypertension) Father Diabetes Heart attack Brother Diabetes Heart problem HTN (hypertension) Maternal Aunt Breast cancer Sister Uterus cancer Maternal Aunt Breast cancer Mother Lung cancer Surgical History Surgical History H/O tubal ligation History of bursectomy History of esophagogastroduodenoscopy (EGD) History of nasal polypectomy Hx of colonoscopy Hx of hemorrhoidectomy Hx of ileostomy S/P anal fissurectomy Social History Social History Household Members: Significant Other Housing: House Are you a primary toddler caregiver to a significant other at home: No Do you presently have visiting nurse or other home services: Yes Alcohol intake: never Patient Tobacco Use Status: Former Tobacco user Quit Date: 2020 Use of substances other than those prescribed or required for medical reasons: No Are you DNR?: No Advance Directives: No Advance Directives Information Provided: Yes service: No Current occupational status: unemployed Meds Allergies Allergy/AdvReac Type Severity Reaction Status Date / Time gabapentin AdvReac Unknown dizziness, Verified 12/16/21 15:12 lightheadedness ibuprofen AdvReac Unknown nausea and Verified 12/16/21 15:12 vomiting Home Medications Medication Instructions Recorded Confirmed Last Taken Type folic acid 1 mg tablet 1 tab PO DAILY 10/08/21 10/08/21 Unknown History Exam Exam Date and Time: December 21, 2021 1210 Pertinent Lab Results Pertinent Lab Results: Laboratory Tests 10/08/21 10/08/21 11:01 11:01 WBC 5.8 Hgb 12.6 Hct 39.3 Plt Count 317 Sodium 141 Potassium 4.1 Chloride 109 H Carbon Dioxide 20 L BUN 7 L Creatinine 0.96 Documented by User: Cole Calderon MD 12/24/21 09:41 [facility] Past Medical History Medical History Adenocarcinoma of rectum Chronic pain syndrome H. pylori infection Hx of gastroesophageal reflux (GERD) Lumbar back pain with radiculopathy affecting left lower extremity Rectal cancer Sacroiliitis Tubular adenoma Family History Family History Mother Diabetes HTN (hypertension) Father Diabetes Heart attack Brother Diabetes Heart problem HTN (hypertension) Maternal Aunt Breast cancer Sister Uterus cancer Maternal Aunt Breast cancer Mother Lung cancer Family history of problems with anesthesia: No Surgical History Surgical History H/O tubal ligation History of bursectomy History of esophagogastroduodenoscopy (EGD) History of nasal polypectomy Hx of colonoscopy Hx of hemorrhoidectomy Hx of ileostomy S/P anal fissurectomy History of Problems with Anesthesia: No Social History Social History Household Members: Significant Other Housing: House Are you a primary toddler caregiver to a significant other at home: No Do you presently have visiting nurse or other home services: Yes Alcohol intake: never Patient Tobacco Use Status: Former Tobacco user Quit Date: 2020 Use of substances other than those prescribed or required for medical reasons: No Are you DNR?: No Advance Directives: No Advance Directives Information Provided: Yes service: No Current occupational status: unemployed Meds Allergies Allergy/AdvReac Type Severity Reaction Status Date / Time gabapentin AdvReac Unknown dizziness, Verified 12/16/21 15:12 lightheadedness ibuprofen AdvReac Unknown nausea and Verified 12/16/21 15:12 vomiting Home Medications Medication Instructions Recorded Confirmed Last Taken Type folic acid 1 mg tablet 1 tab PO DAILY 10/08/21 10/08/21 Unknown History Exam Airway Mallampati Class: II TM Dist: >3cm Neck ROM: Full Loose/Missing/Broken Teeth: No Assessment and Plan Assessment Anesthesia Assessment: Anesthesia Plan Discussed and Chart Reviewed Final Anesthetic Review Family History of Problems with Anesthesia: No History of Problems with Anesthesia: No NPO: Yes ASA Class: II Final Preanesthetic Review: No Changes in Pt Med Stat, Meds/Allgs Chart Reviewed, Consent Obtained/Reviewed and Anes Risks/Benef Reviewed Patient Risk: Low Procedure Risk: Low Anesthetic Plan Anesthetic Plan: MAC: Disposition: Standard PACU
[2021-12-22 12:23] VITALS: BP 137/59; PULSE 64; RESP 18; TEMP 36.3; O2SAT 98; BMI 22.3
[2021-12-22] MEDS: Lactated Ringers 1,000 ML 100 ML IVCONT (12:37)
--- NOTE | 2021-12-22 14:25 | MHC.SHP ---
Pre-Procedural Eval Section A Date of Service: 12/22/21 The patient is an INPATIENT: No Changes since office visit: Yes Patient answered all questions; No Cold of Flu in the past 2 weeks, No New Medical Problems and No Changes in Medication The History & Physical has been completed within 30 days and I have reviewed it.: Yes Section B Chief Complaint: reflux Allergies: Allergies Allergy/AdvReac Type Severity Reaction Status Date / Time gabapentin AdvReac Unknown dizziness, Verified 12/16/21 15:12 lightheadedness ibuprofen AdvReac Unknown nausea and Verified 12/16/21 15:12 vomiting Plan I have reviewed the history and physical and performed a pertinent physical examination on my patient. No changes have occurred unless specified.
--- NOTE | 2021-12-22 14:26 | P.BOP_ITS ---
Brief Operative Note Date of Service: 12/22/21 Pre-op diagnosis: GERD, dyspepsia Post-op diagnosis: other (GERD, gastritis) Procedure: FLEXIBLE TRANSORAL UPPER GASTROINTESTINAL ENDOSCOPY WITH BIOPSIES Consent: Indications for the procedure and potential complications of bleeding, perforation, reaction to medications and missed diagnosis were discussed with the patient and informed consent was obtained. Instrument: Olympus GIF H 190 mid size upper endoscope Monitoring: Vital signs and clinical assessment, continuous EKG monitoring, Pulse oximetry, Carbon Dioxide monitoring and blood pressure monitoring were done throughout the procedure. Procedure: The patient was placed in the left lateral decubitis position and pre-procedure medications were administered and a bite block was placed. The endoscope was inserted into the mouth and advanced under direct vision to the third part of duodenum. A careful inspection was made as the upper endoscope was withdrawn including a retroflexed examination of the proximal stomach; Findings and interventions are described below. Findings: Larynx: Normal Esophagus: GE junction at 38 cms. No esophagitis or Lomeli's. Stomach: Mild gastric erythema. Biopsies were obtained. Grade 2 flap valve on retroflexed examination of the cardia. Duodenum: Normal bulb and descending duodenum Intervention: Biopsies as noted above Impression and Post Procedure Diagnosis: Endoscopy Findings: STOMACH: Mild gastric erythema. Biopsies were obtained. DUODENUM: Normal - biopsied to check for celiac sprue Plan: Await pathology results Patient has an appointment on 01/06/22 in the GI Clinic with Stephanie Valles FNP-BC. Above findings were reviewed with the patient and GERD handout was given in the discharge area Surgeon: Jorgito Santo MD Anesthesia: MAC Was an Indirect Fire Infantryman used for this Procedure?: Yes Indirect Fire Infantryman: Becky Velarde Estimated blood loss (mL): 0 Pathology: other (A. small bowel bxs, R/O celiac B. gastric antrum bxs, R/O H. pylori) Condition: stable Disposition: PACU
[2021-12-22 14:43] VITALS: BP 122/90; PULSE 88; RESP 16; TEMP 36.6; O2SAT 100
[2021-12-22 14:58] VITALS: BP 118/70; PULSE 69; RESP 16; TEMP 36.6; O2SAT 100
--- NOTE | 2021-12-22 15:59 | W.PM.OPN ---
Operative Note Operative Note Date of Service: 12/22/21 Narrative: Pre-op diagnosis: GERD, dyspepsia Post-op diagnosis:?other (GERD, gastritis) Procedure: FLEXIBLE TRANSORAL UPPER GASTROINTESTINAL ENDOSCOPY WITH BIOPSIES Consent:?Indications for the procedure and potential complications of bleeding, perforation, reaction to medications and missed diagnosis were discussed with the patient and informed consent was obtained. Instrument:?Olympus GIF H 190 mid size upper endoscope Monitoring: Vital signs and clinical assessment, continuous EKG monitoring, Pulse oximetry, Carbon Dioxide monitoring and blood pressure monitoring were done throughout the procedure. Procedure:?The patient was placed in the left lateral decubitis position and pre-procedure medications were administered and a bite block was placed. The endoscope was inserted into the mouth and advanced under direct vision to the third part of duodenum. A careful inspection was made as the upper endoscope was withdrawn including a retroflexed examination of the proximal stomach; Findings and interventions are described below. Findings: Larynx:? Normal Esophagus: GE junction at 38 cms. No esophagitis or Lomeli's. Stomach: Mild gastric erythema. Biopsies were obtained. Grade 2 flap valve on retroflexed examination of the cardia. Duodenum: Normal bulb and descending duodenum Intervention: Biopsies as noted above Impression and Post Procedure Diagnosis: Endoscopy Findings: STOMACH: Mild gastric erythema. Biopsies were obtained. DUODENUM: Normal - biopsied to check for celiac sprue Plan: Await pathology results Patient has an appointment on 01/06/22 in the GI Clinic with Stephanie Valles FNP-BC. Above findings were reviewed with the patient and GERD handout was given in the discharge area Surgeon: Jorgito Santo MD Anesthesia:?MAC Was an Press Tender Smoke Signal used for this Procedure?:?Yes Press Tender Smoke Signal:?Becky Velarde Estimated blood loss (mL):?0 Pathology:?other (A. small bowel bxs, R/O celiac? B. gastric antrum bxs, R/O H. pylori) Condition:?stable Disposition:?PACU
== END 2021-12-22 15:45 | disposition home or self-care (01) ==
PROVIDERS: PCP Internal Medicine; Visit Provider Internal Medicine Gastroenterology
PROC: 0DJ08ZZ Inspection of Upper Intestinal Tract, Via Natural or Artificial Opening Endoscopic (ICD-10-PCS; CPT 43235; principal; 2021-12-22 13:20)
DX: K21.9 Gastro-esophageal reflux disease without esophagitis (principal); K29.50 Unspecified chronic gastritis without bleeding; C20 Malignant neoplasm of rectum; Z93.2 Ileostomy status; Z88.8 Allergy status to other drugs, medicaments and biological substances
CPT/HCPCS: 43239; 88305; 88342; J3010

== ENCOUNTER 2021-12-30 08:21 | Emergency (ER) | payer OTHER, SELFPAY ==
--- NOTE | ~2021-12-30 | CT_ITS ---
EXAMINATION: CT ABDOMEN AND PELVIS WITHOUT CONTRAST CLINICAL INFORMATION: Abdominal pain with nausea. COMPARISON: 01/22/2021 CT scan of the abdomen and pelvis. TECHNIQUE: Multidetector volumetric imaging was performed from the superior aspect of the liver through the pubic symphysis. Sagittal and coronal reformatted images were obtained on the technologist's workstation. Lack of intravenous and oral contrast limits visceral evaluation. This CT examination was performed using dose optimization techniques as appropriate, variously including the following: *Automated exposure control *Adjustment of mA and/or kV according to patient size (this includes techniques or standardized protocols for targeted exams where dose is matched to indication/reason for exam; i.e. extremities or head) *Use of iterative reconstruction technique DLP: 336 mGy-cm FINDINGS: LUNG BASES: The visualized lung bases are unremarkable. LIVER, GALLBLADDER, AND BILIARY TREE: Unremarkable. PANCREAS: Unremarkable. SPLEEN: Unremarkable. ADRENAL GLANDS: Unremarkable. KIDNEYS AND URETERS: The kidneys are normal in size, shape, and attenuation. No hydronephrosis, hydroureter, or calculi seen. No perinephric stranding. BLADDER: Unremarkable. GASTROINTESTINAL TRACT: The stomach and proximal small bowel unremarkable. An ileal loop is seen in the right lower quadrant without overt abnormality. The distal ileum and colon are decompressed. The appendix is unremarkable. Mild mural fatty filtration is seen in the cecum and ascending colon without associated abnormality. The rectum is unremarkable. ABDOMINAL WALL: No significant hernia is appreciated. LYMPH NODES: No lymphadenopathy. VASCULAR: Unremarkable. PELVIC VISCERA: Bilateral fallopian metallic clips are noted. OSSEOUS STRUCTURES: Unremarkable. CT/CT abdomen pelvis wo con IMPRESSION: 1. No acute intra-abdominal/pelvic abnormality to explain the patient's symptoms. No abnormality associated with the right lower quadrant ostomy site. Fleischner guidelines were followed.
[2021-12-30 08:46] VITALS: BP 126/71; PULSE 66; RESP 16; TEMP 36.8; O2SAT 100
--- NOTE | 2021-12-30 08:51 | ED.GENADULT ---
HPI - General Adult General Chief complaint: Nausea/Vomiting/Diarrhea Stated complaint: weak nausea Time Seen by Provider: 12/30/21 08:50 Source: patient Mode of arrival: ambulatory Limitations: no limitations History of Present Illness HPI narrative: Patient's history of colon cancer status post ileostomy been feeling weak with nausea since yesterday,, vomited once today patient not been vaccinated against COVID complaining of body weakness tiredness no fever no chills no cough no other family member sick patient just had endoscopy on 12/22 shows mild this to esophageal reflux disease. Related Data Home Medications Medication Instructions Recorded Confirmed folic acid 1 mg tablet 1 tab PO DAILY 10/08/21 10/08/21 Previous Rx's Medication Instructions Recorded oxycodone 10 mg tablet 10 mg PO Q8H PRN Breakthrough 10/27/21 Pain, Moderate #60 tabs ondansetron 8 mg disintegrating 8 mg PO Q8H #50 tabs 11/26/21 tablet oxycodone 20 mg tablet,crush 20 mg PO Q12H #60 tabs 12/01/21 resistant,extended release 12 hr (OxyContin) famotidine 20 mg tablet 20 mg PO BID 30 days #60 tabs 12/22/21 oxycodone 10 mg tablet 10 mg PO Q8H PRN Breakthrough 12/23/21 Pain, Moderate #50 tabs Allergies Allergy/AdvReac Type Severity Reaction Status Date / Time gabapentin AdvReac Unknown dizziness, Verified 12/16/21 15:12 lightheadedness ibuprofen AdvReac Unknown nausea and Verified 12/16/21 15:12 vomiting Review of Systems Review of Systems: Yes all other systems are reviewed and are negative PMFSH Past Medical History Medical History Adenocarcinoma of rectum Chronic pain syndrome H. pylori infection Hx of gastroesophageal reflux (GERD) Lumbar back pain with radiculopathy affecting left lower extremity Rectal cancer Sacroiliitis Tubular adenoma Surgical History H/O tubal ligation History of bursectomy History of esophagogastroduodenoscopy (EGD) History of nasal polypectomy Hx of colonoscopy Hx of hemorrhoidectomy Hx of ileostomy S/P anal fissurectomy Family History Family History Mother Diabetes HTN (hypertension) Father Diabetes Heart attack Brother Diabetes Heart problem HTN (hypertension) Maternal Aunt Breast cancer Sister Uterus cancer Maternal Aunt Breast cancer Mother Lung cancer Social History Social History Household Members: Significant Other Housing: House Are you a primary manager wound care to a significant other at home: No Do you presently have visiting nurse or other home services: Yes Alcohol intake: never Patient Tobacco Use Status: Former Tobacco user Quit Date: 2020 Use of substances other than those prescribed or required for medical reasons: No Advance Directives: No Advance Directives Information Provided: Yes Patient : No service: No Current occupational status: unemployed Physical Exam ED Vital Signs: Vital Signs - 24 hr 12/30/21 08:46 12/30/21 08:56 12/30/21 10:10 Temperature 98.2 F 98.8 F Pulse Rate 66 80 72 Respiratory Rate 16 16 16 Blood Pressure 126/71 126/71 115/65 Pulse Oximetry 100 99 99 Oxygen Delivery Method Room Air Room Air Room Air 12/30/21 12:28 Temperature Pulse Rate 84 Respiratory Rate 18 Blood Pressure 105/64 Pulse Oximetry 98 Oxygen Delivery Method Room Air BMI result Body Mass Index 22.3 Appearance: Alert. Oriented X3. No acute distress. Eyes: No pallor or icterus ENT: Pharynx normal. Oral Mucosa moist Neck: Normal inspection. Neck supple. CVS: Normal heart rate and rhythm. Pulses normal. Respiratory: No respiratory distress. Equal air entry bilateral, no wheezing/rales/rhonchi Abdomen: Soft and mild epigastric tenderness Bowel sounds are present, no mass palpable, no CVA tenderness colostomy bag with normal color stool Skin: Skin warm and dry. Normal skin color. Normal skin turgor. Extremities: No lower extremity edema. No calf tenderness Neuro: Oriented X 3. Medical Decision Making MDM Narrative Medical decision making narrative: Patient chronic abdominal pain with nausea with history of colon cancer on pain management at home came here for increased upper abdominal pain with nausea and vomited 1 time patient workup is essentially negative no leukocytosis CT scan of the abdomen is negative for any acute pathology will discharge patient home advised to continue her pain medication at home as prescribed Lab Data Lab results reviewed: Yes I reviewed the patient's lab results. Result diagrams: 12/30/21 09:20 12/30/21 09:20 Labs: Lab Results 12/30/21 12/30/21 12/30/21 Range/Units 09:20 09:20 09:20 WBC 5.1 (4.8-10.8) X10*3/uL RBC 3.91 L (4.20-5.50) X10*6/uL Hgb 12.8 (12.0-16.0) g/dl Hct 38.4 (37.0-47.0) % MCV 98.2 H (80.0-98.0) fL MCH 32.7 (27.0-33.0) pg MCHC 33.3 (31.0-35.0) g/dl RDW 13.8 (11.0-16.0) % Plt Count 299 (160-400) X10*3/uL MPV 9.1 L (9.4-12.3) fL Immature Gran % (Auto) 0.4 (0.0-0.4) % Neut % (Auto) 73.8 H (45-73) % Lymph % (Auto) 17.1 L (20-40) % Hubbard % (Auto) 7.5 (2-11) % Eos % (Auto) 0.8 (0-4) % Baso % (Auto) 0.4 (0-2) % Lymph # (Auto) 0.9 L (1.2-4.9) X10*3/uL Hubbard # (Auto) 0.4 (0.1-1.2) X10*3/uL Eos # (Auto) 0.0 (0.0-0.4) X10*3/uL Baso # (Auto) 0.0 (0.0-0.2) X10*3/uL Abs Immat Gran (auto) 0.02 (0.00-0.03) X10*3/uL Absolute Neuts (auto) 3.8 (2.0-8.3) x10*3/uL Absolute Nucleated RBC 0.000 (0.0-0.012) X10*3/uL Nucleated RBC % (auto) 0.0 (0.0-0.2) /100WBC Sodium 140 (135-145) mmol/L Potassium 5.0 D (3.3-5.1) mmol/L Chloride 106 (96-108) mmol/L Carbon Dioxide 24 (22-29) mmol/L Anion Gap 15 (12-20) BUN 6 L (9-16) mg/dL Creatinine 1.00 (0.5-1.4) mg/dL Estim Creat Clear Calc 49.6 Estimated GFR 58 Random Glucose 104 (60-115) mg/dL Calcium 9.7 (8.4-10.2) mg/dL Total Bilirubin 0.8 (0.0-1.0) mg/dL AST 53 H (5-31) U/L ALT 38 H (0-31) U/L Alkaline Phosphatase 184 H (39-117) U/L Total Protein 7.9 (6.5-8.0) g/dL Albumin 4.4 (3.5-5.0) g/dL Lipase 37 (8-78) U/L Urine Color Urine Appearance Urine pH (5.0-8.0) Ur Specific [place] (1.005-1.025) Urine Protein (NEG-TRACE) MG/DL Urine Glucose (UA) (NEG) MG/DL Urine Ketones (NEG) MG/DL Urine Blood (NEG) Urine Nitrite (NEG) Ur Leukocyte Esterase (NEG) COVID-19 ([facility]) Negative (Negative) COVID-19 Clin Com See Note 12/30/21 Range/Units 12:33 WBC (4.8-10.8) X10*3/uL RBC (4.20-5.50) X10*6/uL Hgb (12.0-16.0) g/dl Hct (37.0-47.0) % MCV (80.0-98.0) fL MCH (27.0-33.0) pg MCHC (31.0-35.0) g/dl RDW (11.0-16.0) % Plt Count (160-400) X10*3/uL MPV (9.4-12.3) fL Immature Gran % (Auto) (0.0-0.4) % Neut % (Auto) (45-73) % Lymph % (Auto) (20-40) % Hubbard % (Auto) (2-11) % Eos % (Auto) (0-4) % Baso % (Auto) (0-2) % Lymph # (Auto) (1.2-4.9) X10*3/uL Hubbard # (Auto) (0.1-1.2) X10*3/uL Eos # (Auto) (0.0-0.4) X10*3/uL Baso # (Auto) (0.0-0.2) X10*3/uL Abs Immat Gran (auto) (0.00-0.03) X10*3/uL Absolute Neuts (auto) (2.0-8.3) x10*3/uL Absolute Nucleated RBC (0.0-0.012) X10*3/uL Nucleated RBC % (auto) (0.0-0.2) /100WBC Sodium (135-145) mmol/L Potassium (3.3-5.1) mmol/L Chloride (96-108) mmol/L Carbon Dioxide (22-29) mmol/L Anion Gap (12-20) BUN (9-16) mg/dL Creatinine (0.5-1.4) mg/dL Estim Creat Clear Calc Estimated GFR Random Glucose (60-115) mg/dL Calcium (8.4-10.2) mg/dL Total Bilirubin (0.0-1.0) mg/dL AST (5-31) U/L ALT (0-31) U/L Alkaline Phosphatase (39-117) U/L Total Protein (6.5-8.0) g/dL Albumin (3.5-5.0) g/dL Lipase (8-78) U/L Urine Color YELLOW Urine Appearance HAZY Urine pH 5.5 (5.0-8.0) Ur Specific [place] 1.025 (1.005-1.025) Urine Protein NEG (NEG-TRACE) MG/DL Urine Glucose (UA) NEG (NEG) MG/DL Urine Ketones NEG (NEG) MG/DL Urine Blood TRACE (NEG) Urine Nitrite NEG (NEG) Ur Leukocyte Esterase 2+ H (NEG) COVID-19 ([facility]) (Negative) COVID-19 Clin Com Discharge Plan Discharge Clinical Impression: Abdominal pain Patient Disposition: Home, Self-Care Instructions: Abdominal Pain (ED) Additional Instructions: Drink plenty of fluids continue taking medications Follow with PCP Prescriptions: No Action famotidine 20 mg tablet 20 mg PO BID 30 Days Qty: 60 3RF oxycodone 10 mg Tablet 10 mg PO Q8H PRN (Reason: Breakthrough Pain, Moderate) Qty: 50 0RF Rx Instructions: Partial Fill upon patient request. folic acid 1 mg tablet 1 tab PO DAILY oxycodone 10 mg Tablet 10 mg PO Q8H PRN (Reason: Breakthrough Pain, Moderate) Qty: 60 0RF ondansetron 8 mg Tablet,Disintegrating 8 mg PO Q8H Qty: 50 12RF oxycodone [OxyContin] 20 mg Tablet,Oral Only,Ext.Rel.12 Hr 20 mg PO Q12H Qty: 60 0RF
[2021-12-30 08:56] VITALS: BP 126/71; PULSE 80; RESP 16; TEMP 37.1; O2SAT 99; BMI 22.3
[2021-12-30] MEDS: Ondansetron ODT 4 MG TAB.RAPDIS TRANSLINGU (09:10)
[2021-12-30 09:25] LABS: MANUAL DIFF FLAG NO
[2021-12-30 09:28] LABS: Basophils Percent Auto 0.4 % (0-2); Eosinophils Percent Auto 0.8 % (0-4); Hematocrit 38.4 % (37.0-47.0); Hemoglobin 12.8 g/dl (12.0-16.0); Imm Gran Abs Auto 0.02 X10*3/uL (0.00-0.03); Imm Gran Pct Auto 0.4 % (0.0-0.4); Lymphocytes Absolute Auto 0.9 X10*3/uL (1.2-4.9); Lymphocytes Percent Auto 17.1 % (20-40); Mean Corpuscular HGB Conc 33.3 g/dl (31.0-35.0); Mean Corpuscular Hemoglobin 32.7 pg (27.0-33.0); Mean Corpuscular Volume 98.2 fL (80.0-98.0); Mean Platelet Volume 9.1 fL (9.4-12.3); Monocytes Absolute Auto 0.4 X10*3/uL (0.1-1.2); Monocytes Percent Auto 7.5 % (2-11); Neutrophils Absolute Auto 3.8 x10*3/uL (2.0-8.3); Neutrophils Percent Auto 73.8 % (45-73); Platelet Count 299 X10*3/uL (160-400); Red Blood Count 3.91 X10*6/uL (4.20-5.50); Red Cell Distribution Width 13.8 % (11.0-16.0); White Blood Count 5.1 X10*3/uL (4.8-10.8)
[2021-12-30 09:47] LABS: Alanine Aminotransferase 38 U/L (0-31); Albumin Level 4.4 g/dL (3.5-5.0); Alkaline Phosphatase 184 U/L (39-117); Anion Gap 15 (12-20); Aspartate Amino Transferase 53 U/L (5-31); Bilirubin Total 0.8 mg/dL (0.0-1.0); Blood Urea Nitrogen 6 mg/dL (9-16); Calcium 9.7 mg/dL (8.4-10.2); Carbon Dioxide 24 mmol/L (22-29); Chloride 106 mmol/L (96-108); Creatinine Clr Calc Pharmacy 49.6; Estimated Glomerular Filt Rate 58; Glucose Random 104 mg/dL (60-115); Lipase 37 U/L (8-78); Sodium 140 mmol/L (135-145); Total Protein 7.9 g/dL (6.5-8.0)
[2021-12-30 09:52] LABS: COVID-19 Test Negative (Negative)
--- NOTE | 2021-12-30 10:00 | PC.NURSE ---
Patient arrives complaining of lower abdominal pain. Has an ileostomy which hurts during vomiting episodes. Patient reports nausea and vomiting x 1 day. Denies any obvious trigger. Alert and oriented. Respirations regular and even. Skin PWD. IV established and labs drawn. Gave sublingual zofran at this time. Will continue to monitor.
[2021-12-30 10:10] VITALS: BP 115/65; PULSE 72; RESP 16; O2SAT 99
[2021-12-30] MEDS: 0.9 % Sodium Chloride 1,000 ML 999 ML IV (10:29)
[2021-12-30] MEDS: Morphine Sulfate 4 MG/ML CARTRIDGE IVPUSH (10:30)
--- NOTE | 2021-12-30 10:35 | PC.NURSE ---
Patient with continued pain, rates 10/10 at this time. Medicated with Morphine and hung NS 1L as ordered. Will continue to monitor.
[2021-12-30 12:28] VITALS: BP 105/64; PULSE 84; RESP 18; O2SAT 98
[2021-12-30] MEDS: oxyCODONE HCl Immed Release 5 MG TABLET 10 MG PO (12:29)
[2021-12-30 12:40] LABS: Appearance Urine HAZY; Color Urine YELLOW; Glucose Urine UA NEG (NEG); Leukocyte Esterase Urine 2+ (NEG); Nitrite Urine NEG (NEG); PH 5.5 (5.0-8.0); Specific Gravity - Urine 1.025 (1.005-1.025); UACC Culture Trigger YES; Urine Blood TRACE (NEG); Urine Ketones NEG (NEG); Urine Protein NEG (NEG-TRACE)
[2021-12-30 12:53] LABS: Bacteria Urine 1+ /LPF; Granular Casts Urine 0-2 /LPF; Hyaline Casts Urine 0-2 /LPF; Squamous Epithelial Cell Urine 1+ /LPF
== END 2021-12-30 13:01 | disposition home or self-care (01) ==
PROVIDERS: Emergency Provider Internal Medicine; PCP Internal Medicine
DX: R10.10 Upper abdominal pain, unspecified (principal); Z20.822 Contact with and (suspected) exposure to COVID-19; R53.1 Weakness; Z93.2 Ileostomy status; Z85.038 Personal history of other malignant neoplasm of large intestine
CPT/HCPCS: 74176; 80053; 81001; 83690; 85025; 87086; 87635; 96361; 96374; 99284; J2270

== ENCOUNTER 2022-01-10 03:03 | Inpatient (IN) | payer OTHER, SELFPAY ==
[2022-01-10] VITALS (10 sets, daily range): BP systolic 104–130; BP diastolic 59–87; PULSE 60–120; RESP 16–19; TEMP 36.2–37.1; O2SAT 96–100; BMI 22.3
--- NOTE | ~2022-01-10 | XR_ITS ---
EXAMINATION: XR ABDOMEN KUB CLINICAL INDICATION: Postop bowel obstruction COMPARISON: CT abdomen and pelvis 01/10/2021 2 TECHNIQUE: AP view of the abdomen. FINDINGS: There are multiple dilated small bowel loops in the central abdomen. The dilated segment extends to the right lower quadrant. The colon is gasless and nondilated. There is NG tube coiled in the stomach. No free air suspected. No gross bony abnormality. XR/XR KUB IMPRESSION: Dilated proximal and mid small bowel loops in the central abdomen suggestive of small bowel obstruction.
--- NOTE | ~2022-01-10 | XR_ITS ---
EXAMINATION: XR chest 1V CLINICAL INFORMATION: Reason for Exam NG placement verification CXR PER DR CHINCHILLA COMPARISON: Prior chest x-ray 06/17/2022 TECHNIQUE: XR chest 1V Tubes and lines: Port-A-Cath in place properly positioned with its tip projecting over the SVC. Gastric tube passing below the diaphragm into the stomach. Lungs and pleura: Both lungs are clear. Heart and mediastinum: The mediastinum is within normal limits.. Bones/soft tissue: Skeletal structures included are normal for patient's age. XR/XR chest 1V IMPRESSION: Port-A-Cath and gastric tube in place properly positioned. No radiographic evidence of acute cardiopulmonary disease.
--- NOTE | ~2022-01-10 | CT_ITS ---
EXAMINATION: CT ABDOMEN AND PELVIS WITHOUT CONTRAST CLINICAL INFORMATION: Abdominal pain status post ileostomy reversal on January 08 COMPARISON: 12/30/2021 TECHNIQUE: Multidetector volumetric imaging was performed from the superior aspect of the liver through the pubic symphysis. Sagittal and coronal reformatted images were obtained on the technologist's workstation. This CT examination was performed using dose optimization techniques as appropriate, variously including the following: *Automated exposure control *Adjustment of mA and/or kV according to patient size (this includes techniques or standardized protocols for targeted exams where dose is matched to indication/reason for exam; i.e. extremities or head) *Use of iterative reconstruction technique DLP: 346 mGy-cm FINDINGS: LUNG BASES: The visualized lung bases are unremarkable. LIVER, GALLBLADDER, AND BILIARY TREE: The liver is normal in size, shape, and attenuation. No focal hepatic lesion or biliary ductal dilatation is identified. The gallbladder is unremarkable with no evidence of radiopaque gallstones, gallbladder wall thickening, or obvious pericholecystic inflammatory changes. PANCREAS: Unremarkable. SPLEEN: Unremarkable. ADRENAL GLANDS: Unremarkable. KIDNEYS AND URETERS: The kidneys are normal in size, shape, and attenuation. No hydronephrosis, hydroureter, or calculi seen. No perinephric stranding. BLADDER: Unremarkable. GASTROINTESTINAL TRACT: The mid to distal small bowel is gas and fluid-filled, demonstrating mild dilation. The distalmost small bowel in the right lower quadrant demonstrates fecalization, leading to the abrupt transition to collapsed small bowel at the terminal ileum suture line, and overall appearance is suspicious for sequelae of small bowel obstruction. The colon appears only mildly distended. Small amount of free fluid is present in the abdomen and pelvis. Scattered free air is present, presumably postoperative from recent surgery. ABDOMINAL WALL: Subcutaneous gas noted in the right lower quadrant, at the presumed site of recent surgery. No associated collection. LYMPH NODES: Normal. VASCULAR: Unremarkable. PELVIC VISCERA: Unremarkable. OSSEOUS STRUCTURES: Unremarkable. CT/CT abdomen pelvis wo con IMPRESSION: Findings suspicious for small bowel obstruction, with transition site at a distal small bowel suture line in the right lower quadrant. Small amount of free fluid is present along with scattered gas, presumably postoperative in the setting of recent surgery.
--- NOTE | ~2022-01-10 | FL_ITS ---
EXAMINATION: FL SMALL BOWEL SERIES CLINICAL INFORMATION: Small bowel obstruction. COMPARISON: None TECHNIQUE: Following a drum loader and unloader image of the abdomen, contrast was administered orally, and interval abdominal radiographs were performed to assess for contrast progression through the small bowel. Following contrast transit through the small bowel and into the colon, the patient was placed on the fluoroscopy table, and multiple spot images were obtained. FINDINGS: [employer] image of the abdomen demonstrates distended small bowel loops with gas suggestive of small bowel obstruction. There is enteric tube in the stomach.. Following injection of 50-50 contrast 2 cups sequential images were obtained up to one hour. Unfortunately after one hour the entire Gastrografin was suctioned out by the nurse hence no contrast is visualized on 3 hour images.. FLUOROSCOPY TIME: 0. FL/FL small bowel follow through IMPRESSION: Following oral administration of hard 70 mL of value to Gastrografin 50/50 there is contrast seen in the stomach and the proximal small bowel loops which are distended suggestive of small bowel obstruction. The 3 hr images reveal near complete suction of Gastrografin. Very little Gastrografin seen in the left abdomen. Results were conveyed to Dr. Kadie Frye by phone at 3:00 PM.
[2022-01-10] MEDS: 0.9 % Sodium Chloride 1,000 ML 999 ML IVCONT (04:42)
[2022-01-10 04:48] LABS: MANUAL DIFF FLAG NO
[2022-01-10 04:49] LABS: Basophils Percent Auto 0.1 % (0-2); Hematocrit 33.8 % (37.0-47.0); Hemoglobin 11.3 g/dl (12.0-16.0); Imm Gran Abs Auto 0.05 X10*3/uL (0.00-0.03); Imm Gran Pct Auto 0.5 % (0.0-0.4); Lymphocytes Absolute Auto 1.1 X10*3/uL (1.2-4.9); Lymphocytes Percent Auto 11.1 % (20-40); Mean Corpuscular HGB Conc 33.4 g/dl (31.0-35.0); Mean Corpuscular Hemoglobin 32.9 pg (27.0-33.0); Mean Corpuscular Volume 98.5 fL (80.0-98.0); Mean Platelet Volume 9.4 fL (9.4-12.3); Monocytes Absolute Auto 0.7 X10*3/uL (0.1-1.2); Neutrophils Percent Auto 81.3 % (45-73); Platelet Count 244 X10*3/uL (160-400); Red Blood Count 3.43 X10*6/uL (4.20-5.50); Red Cell Distribution Width 13.3 % (11.0-16.0); White Blood Count 9.9 X10*3/uL (4.8-10.8)
--- NOTE | 2022-01-10 04:51 | ED_ITS ---
HPI - Abdominal Pain General Chief Complaint: Abdominal Pain Stated Complaint: surgery complications, surgery 01/09 Time Seen by Provider: 01/10/22 04:25 Source: patient Mode of arrival: ambulatory Limitations: no limitations History of Present Illness HPI narrative: Patient comes to emergency room complaining of abdominal pain. Patient states that she was just discharged from [facility]. Two days ago, on January 08, patient underwent anterior ileostomy reversal/ resection with primary anastomosis and proximal diversion. Patient states that her last chemotherapy session was in November of last year, had the last radiation treatment in July of 2021. Patient has history of rectal cancer, status post robotic TaTME and diverting loop ileostomy on 07/31/2021. Patient was taken to the OR at [facility] on 01/08/2022 for an ileostomy reversal Related Data Home Medications Medication Instructions Recorded Confirmed folic acid 1 mg tablet 1 tab PO DAILY 10/08/21 10/08/21 Previous Rx's Medication Instructions Recorded oxycodone 10 mg tablet 10 mg PO Q8H PRN Breakthrough 10/27/21 Pain, Moderate #60 tabs ondansetron 8 mg disintegrating 8 mg PO Q8H #50 tabs 11/26/21 tablet oxycodone 20 mg tablet,crush 20 mg PO Q12H #60 tabs 12/01/21 resistant,extended release 12 hr (OxyContin) famotidine 20 mg tablet 20 mg PO BID 30 days #60 tabs 12/22/21 oxycodone 10 mg tablet 10 mg PO Q8H PRN Breakthrough 12/23/21 Pain, Moderate #50 tabs Allergies Allergy/AdvReac Type Severity Reaction Status Date / Time gabapentin AdvReac Unknown dizziness, Verified 01/10/22 03:34 lightheadedness ibuprofen AdvReac Unknown nausea and Verified 01/10/22 03:34 vomiting Review of Systems Review of Systems Constitutional : No Weight loss, No Fever, No Chills, No Night Sweats, No Fatigue, No Malaise ENT/Mouth : No Hearing loss, No Ear Pain, No Nasal Congestion, No Sinus Pain, No Hoarseness, No sore throat, No Rhinorrhea, No Swallowing Difficulty Eyes: No Eye Pain, No Swelling, No Redness, No Foreign Body, No Discharge, No Vision Changes Cardiovascular : No Chest Pain, No SOB, No Dyspnea on Exertion, No Orthopnea, No Edema, No Palpitations Respiratory : No Cough, No Sputum, No Wheezing, No Smoke Exposure, No Dyspnea Gastrointestinal : Complaining of Nausea, No Vomiting, No Diarrhea, No Constipation, complaining of abdominal cramping, intermittent but severe Genitourinary : no irregular bleeding, No Dysuria, No Urinary Frequency, No Hematuria, No Urinary Incontinence, No Urgency, No Flank Pain, No Urinary Flow Changes, No Hesitancy Musculoskeletal : No joint pain, No Myalgias, No Joint Swelling Skin : No Skin Lesions, No rash Neuro : No Weakness, No Numbness, No Paresthesias, No Loss of Consciousness, No Dizziness, No Headache Psych : No Anxiety/Panic, No Depression, No SI/HI/AH/VH, No Social Issues, Heme/Lymph: No Bruising, No Bleeding,No Lymphadenopathy Endocrine : No Polyuria, No Polydipsia, No Temperature Intolerance [facility] Past Medical History Medical History Adenocarcinoma of rectum Chronic pain syndrome H. pylori infection Hx of gastroesophageal reflux (GERD) Lumbar back pain with radiculopathy affecting left lower extremity Rectal cancer Sacroiliitis Tubular adenoma Surgical History (Updated 01/10/22 @ 06:11 by Shakila Angeles MD) H/O tubal ligation History of bursectomy History of esophagogastroduodenoscopy (EGD) History of nasal polypectomy History of reversal of ileostomy Hx of colonoscopy Hx of hemorrhoidectomy Hx of ileostomy S/P anal fissurectomy Family History Family History Mother Diabetes HTN (hypertension) Father Diabetes Heart attack Brother Diabetes Heart problem HTN (hypertension) Maternal Aunt Breast cancer Sister Uterus cancer Maternal Aunt Breast cancer Mother Lung cancer Social History Social History Household Members: Significant Other Housing: House Are you a primary child care specialist to a significant other at home: No Do you presently have visiting nurse or other home services: Yes Alcohol intake: never Patient Tobacco Use Status: Former Tobacco user Quit Date: 2020 Advance Directives: No Advance Directives Information Provided: Yes service: No Current occupational status: unemployed Physical Exam ED Vital Signs: Vital Signs - 24 hr 01/10/22 03:29 Temperature 98.8 F Pulse Rate 120 H Respiratory Rate 18 Blood Pressure 108/87 Pulse Oximetry 96 Oxygen Delivery Method Room Air BMI result Body Mass Index 22.3 Const Other: Appearance: Alert. Oriented X3. Seems uncomfortable Eyes: Pupils equal, round and reactive to light. ENT: Pharynx normal. Neck: Normal inspection. Neck supple. No lymph nodes noted. No crepitus CVS: Normal heart rate and rhythm. Pulses normal. Normal S1 and S2 Respiratory: No respiratory distress. Breath sounds normal. No Wheezing. No rales Abdomen: Soft mildly distended, patient has the ileostomy surgical site clean, small amount of blood in the Oskar is, no pus, no erythema, packing still in place Skin: Skin warm and dry. Normal skin color. Normal skin turgor. Extremities: No lower extremity edema. No Lacerations. No Rash Neuro: Oriented X 3. No motor deficit. No sensory deficit. Moving all extremities. No slurred speech. CN 2 through 12 grossly intact Psych: calm, cooperative, normal affect Course Course Course Narrative: Discussed the CT scan with Dr. Jiang. Patient seems to be developing a small-bowel obstruction. Patient will be admitted, agrees with plan. MDM - Abdominal Pain Lab Data Result diagrams: 01/10/22 04:43 01/10/22 04:43 Labs: Lab Results 01/10/22 Range/Units 04:43 WBC 9.9 (4.8-10.8) X10*3/uL RBC 3.43 L (4.20-5.50) X10*6/uL Hgb 11.3 L (12.0-16.0) g/dl Hct 33.8 L (37.0-47.0) % MCV 98.5 H (80.0-98.0) fL MCH 32.9 (27.0-33.0) pg MCHC 33.4 (31.0-35.0) g/dl RDW 13.3 (11.0-16.0) % Plt Count 244 (160-400) X10*3/uL MPV 9.4 (9.4-12.3) fL Immature Gran % (Auto) 0.5 H (0.0-0.4) % Neut % (Auto) 81.3 H (45-73) % Lymph % (Auto) 11.1 L (20-40) % Hayes % (Auto) 7.0 (2-11) % Eos % (Auto) 0.0 (0-4) % Baso % (Auto) 0.1 (0-2) % Lymph # (Auto) 1.1 L (1.2-4.9) X10*3/uL Hayes # (Auto) 0.7 (0.1-1.2) X10*3/uL Eos # (Auto) 0.0 (0.0-0.4) X10*3/uL Baso # (Auto) 0.0 (0.0-0.2) X10*3/uL Abs Immat Gran (auto) 0.05 H (0.00-0.03) X10*3/uL Absolute Neuts (auto) 8.0 (2.0-8.3) x10*3/uL Absolute Nucleated RBC 0.000 (0.0-0.012) X10*3/uL Nucleated RBC % (auto) 0.0 (0.0-0.2) /100WBC Imaging Data CT scan - abdomen: Radiologist's impression: FINDINGS: LUNG BASES: The visualized lung bases are unremarkable.? LIVER, GALLBLADDER, AND BILIARY TREE: The liver is normal in size, shape, and attenuation. No focal hepatic lesion or biliary ductal dilatation is identified. The gallbladder is unremarkable with no evidence of radiopaque gallstones, gallbladder wall thickening, or obvious pericholecystic inflammatory changes.? PANCREAS: Unremarkable.? SPLEEN: Unremarkable.? ADRENAL GLANDS: Unremarkable.? KIDNEYS AND URETERS: The kidneys are normal in size, shape, and attenuation. No hydronephrosis, hydroureter, or calculi seen. No perinephric stranding. BLADDER: Unremarkable.? GASTROINTESTINAL TRACT: The mid to distal small bowel is gas and fluid-filled, demonstrating mild dilation. The distalmost small bowel in the right lower quadrant demonstrates fecalization, leading to the abrupt transition to collapsed small bowel at the terminal ileum suture line, and overall appearance is suspicious for sequelae of small bowel obstruction. The colon appears only mildly distended. Small amount of free fluid is present in the abdomen and pelvis. Scattered free air is present, presumably postoperative from recent surgery. ABDOMINAL WALL: Subcutaneous gas noted in the right lower quadrant, at the presumed site of recent surgery. No associated collection.? LYMPH NODES: Normal. VASCULAR: Unremarkable. PELVIC VISCERA: Unremarkable.? OSSEOUS STRUCTURES: Unremarkable.? CT/CT abdomen pelvis wo con IMPRESSION: Findings suspicious for small bowel obstruction, with transition site at a distal small bowel suture line in the right lower quadrant. Small amount of free fluid is present along with scattered gas, presumably postoperative in the setting of recent surgery. Discharge Plan Discharge Clinical Impression: SBO (small bowel obstruction) Patient Disposition: Admitted As Inpatient Prescriptions: No Action famotidine 20 mg tablet 20 mg PO BID 30 Days Qty: 60 3RF oxycodone 10 mg Tablet 10 mg PO Q8H PRN (Reason: Breakthrough Pain, Moderate) Qty: 50 0RF Rx Instructions: Partial Fill upon patient request. folic acid 1 mg tablet 1 tab PO DAILY oxycodone 10 mg Tablet 10 mg PO Q8H PRN (Reason: Breakthrough Pain, Moderate) Qty: 60 0RF ondansetron 8 mg Tablet,Disintegrating 8 mg PO Q8H Qty: 50 12RF oxycodone [OxyContin] 20 mg Tablet,Oral Only,Ext.Rel.12 Hr 20 mg PO Q12H Qty: 60 0RF
[2022-01-10] MEDS: ondansetron HCL 4 MG/2 ML VIAL IVPUSH (05:22)
[2022-01-10] MEDS: HYDROmorphone HCl 1 MG/ML SYRINGE IVPUSH ×6 (05:22→23:29)
[2022-01-10 06:29] LABS: Lactic Acid 1.5 mmol/L (0.5-2.0)
[2022-01-10 06:33] LABS: COVID-19 Test Negative (Negative)
[2022-01-10 06:35] LABS: Alanine Aminotransferase 37 U/L (0-31); Albumin Level 3.4 g/dL (3.5-5.0); Alkaline Phosphatase 117 U/L (39-117); Anion Gap 11 (12-20); Aspartate Amino Transferase 42 U/L (5-31); Bilirubin Direct 0.3 mg/dL (0.0-0.5); Bilirubin Total 0.4 mg/dL (0.0-1.0); Blood Urea Nitrogen 7 mg/dL (9-16); Calcium 7.8 mg/dL (8.4-10.2); Carbon Dioxide 21 mmol/L (22-29); Chloride 109 mmol/L (96-108); Creatinine Clr Calc Pharmacy 65.3; Estimated Glomerular Filt Rate > 60; Glucose Random 108 mg/dL (60-115); Lipase 22 U/L (8-78); Potassium 3.6 mmol/L (3.3-5.1); Sodium 137 mmol/L (135-145); Total Protein 5.9 g/dL (6.5-8.0)
--- NOTE | 2022-01-10 07:00 | PC.NURSE ---
report given to PATRICK Vee
--- NOTE | 2022-01-10 08:52 | PHA.MEDREC ---
Pharmacy Consult ? Medication Reconciliation Pharmacy has completed the medication reconciliation. Spoke with patient in the ED.
[2022-01-10] MEDS: 0.9 % Sodium Chloride 1,000 ML 100 ML IVCONT ×2 (08:53→18:08)
[2022-01-10] MEDS: Morphine Sulfate 4 MG/ML CARTRIDGE IVPUSH (11:01)
--- NOTE | 2022-01-10 13:41 | PC.NURSE ---
Patient called RN in, states pain did not feel controlled after morphine 4 mg iv given at 11am. placed text to admitting dr to let her know of patients complaint. dr stated she will be in to see patient soon. patient made aware that not further orders for pain meds given at this time and that Dr is coming to assess her.
[2022-01-10] MEDS: Ketorolac Tromethamine 30 MG/ML VIAL IVPUSH (14:44)
--- NOTE | 2022-01-10 14:49 | P.HPGS_ITS ---
History of Present Illness History of Present Illness Date of Service: 01/10/22 Chief complaint: pain Narrative: Amanda De is a 51 year old female who had rectal cancer and was treated for it with chemo and radiation thx and had surgery with diversion in [place]. she 2 days ago went back to have her diverting ileosotmy reveresed adn was kept one day then dc the other day. came into the ER overnight because she had significant crampy pain and nausea nd not feeling well. ct scan showing distended bowel and findings of psbo with fecalization of bowel in the distal ileus Review of Systems Review of Systems: Yes all other systems are reviewed and are negative PMFSH Past Medical History Medical History Adenocarcinoma of rectum Chronic pain syndrome H. pylori infection Hx of gastroesophageal reflux (GERD) Lumbar back pain with radiculopathy affecting left lower extremity Rectal cancer Sacroiliitis Tubular adenoma Family History Family History Mother Diabetes HTN (hypertension) Father Diabetes Heart attack Brother Diabetes Heart problem HTN (hypertension) Maternal Aunt Breast cancer Sister Uterus cancer Maternal Aunt Breast cancer Mother Lung cancer Surgical History Surgical History (Updated 01/10/22 @ 06:11 by Shakila Angeles MD) H/O tubal ligation History of bursectomy History of esophagogastroduodenoscopy (EGD) History of nasal polypectomy History of reversal of ileostomy Hx of colonoscopy Hx of hemorrhoidectomy Hx of ileostomy S/P anal fissurectomy Social History Social History Household Members: Spouse Housing: House Are you a primary care trainer to a significant other at home: No Do you presently have visiting nurse or other home services: No Alcohol intake: never Patient Tobacco Use Status: Former Tobacco user Quit Date: 2020 Use of substances other than those prescribed or required for medical reasons: No Have you been hit, kicked, punched, or otherwise hurt by someone within the past year? If so, by whom?: No Do you feel safe in your current relationship?: Yes Is there a partner from a previous relationship who is making you feel unsafe now?: No Are you made to feel afraid or neglected: No Advance Directives: No Advance Directives Information Provided: Yes Advance Directives on File: No Do you have thoughts of harming others: None Do you have a plan to hurt others: No Plan Recently lost weight without trying: No How much weight loss: Not applicable Eating poorly because of decreased appetite: No Nutrition screen score: 0 Nutrition Risks: No Nutritional Risk Patient : No : No Poor oral hygiene: No service: No Current occupational status: unemployed Meds Allergies Allergy/AdvReac Type Severity Reaction Status Date / Time gabapentin AdvReac Unknown dizziness, Verified 01/10/22 03:34 lightheadedness ibuprofen AdvReac Unknown nausea and Verified 01/10/22 03:34 vomiting Active Medications: Current Medications Hydromorphone HCl (Hydromorphone Hcl 1 Mg/Ml Syringe) 1 mg IVPUSH Q2H PRN; Protocol PRN Reason: Pain, Severe (Pain Scale 7-10) Sodium Chloride (Ns) 1,000 mls @ 100 mls/hr IVCONT .Q10H [facility] Last Admin: 01/10/22 08:53 Dose: 100 mls/hr Ketorolac Tromethamine (Ketorolac Tromethamine 15 Mg/Ml Vial) 15 mg IVPUSH Q6H PRN PRN Reason: Pain, Moderate (Pain Scale 4-6 Ondansetron HCl (Ondansetron Hcl 4 Mg/2 Ml Vial) 4 mg IVPUSH Q8H PRN PRN Reason: Nausea and Vomiting Sodium Chloride (0.9 % Sodium Chloride Flush 3 Ml Syringe) 3 ml IVFLUSH QSHIFT [facility] Home Medications Medication Instructions Recorded Confirmed Last Taken Type folic acid 1 mg tablet 1 tab PO DAILY 10/08/21 01/10/22 01/09/22 History cyanocobalamin (vitamin B-12) 1,000 mcg PO DAILY 01/10/22 01/10/22 01/09/22 History 1,000 mcg tablet ondansetron 8 mg disintegrating 8 mg PO Q8H PRN Nausea And Vomiting 01/10/22 01/10/22 01/09/22 History tablet oxycodone 20 mg tablet,crush 20 mg PO BID 01/10/22 01/10/22 01/09/22 History resistant,extended release 12 hr (OxyContin) psyllium 1 packet PO BID 01/10/22 01/10/22 01/09/22 History Physical Exam Vital Signs: Vital Signs: Last Vital Signs Temp 98.5 F 01/10/22 07:23 Pulse 66 01/10/22 11:00 Resp 16 01/10/22 11:00 BP 110/72 01/10/22 11:00 Pulse Ox 99 01/10/22 08:51 O2 Del Method 01/10/22 08:51 BMI result Body Mass Index 22.3 Const: General: cooperative and in distress moderate Resp: Effort & Inspection: normal respiratory effort Auscultation: clear to auscultation bilaterally Cardio: Rate: tachycardic Rhythm: regular rhythm GI: Other: soft mild distension tender active bowel sounds incision area ok Results Results Labs: Short CBC 01/10/22 Range/Units 04:43 WBC 9.9 (4.8-10.8) X10*3/uL Hgb 11.3 L (12.0-16.0) g/dl Hct 33.8 L (37.0-47.0) % Plt Count 244 (160-400) X10*3/uL BMP 01/10/22 06:06 Sodium 137 Potassium 3.6 D Chloride 109 H Carbon Dioxide 21 L BUN 7 L Creatinine 0.76 Calcium 7.8 L D Liver Function 01/10/22 Range/Units 06:06 Total Bilirubin 0.4 (0.0-1.0) mg/dL Direct Bilirubin 0.3 (0.0-0.5) mg/dL AST 42 H (5-31) U/L ALT 37 H (0-31) U/L Alkaline Phosphatase 117 D (39-117) U/L Albumin 3.4 L D (3.5-5.0) g/dL Abdomen CT scan report/results: report reviewed and image reviewed CT scan - pelvis: report reviewed and image reviewed Assessment and Plan (1) SBO (small bowel obstruction): Status: Acute Plan 51 year old female with recent ileostomy reversal for diversion for rectal cnacer treatment in [facility] npo and ivf and pain meds. consider small bowel follow through to eval small bowel. Quality Stroke Does the patient have a stroke diagnosis?: No VTE Prior VTE?: No VTE Risk Level:: Surgical - low VTE Device Contraindication: N/A - Device Ordered VTE Drug Contraindication: Treatment Not Indicated Procedures Date of Service Date of Service: 01/10/22
--- NOTE | 2022-01-10 15:04 | MHC.CM.PN ---
PT REPORTS SHE LIVES WITH HER S/O AND IS INDEPENDENT WITH CARE PT DENIES USE OF DME OR HAVING HOME SERVICES PT REPORTS HE IS NOT COVID VACCINATED PCP: MICHELLE HAMPTON CURRENT DC PLAN IS HOME WITH NO SERVICES FAMILY TO TRANSPORT
[2022-01-11] MEDS: HYDROmorphone HCl 1 MG/ML SYRINGE IVPUSH ×9 (01:47→21:06)
[2022-01-11] MEDS: 0.9 % Sodium Chloride 1,000 ML 100 ML IVCONT ×3 (01:48→22:35)
[2022-01-11] MEDS: Ketorolac Tromethamine 15 MG/ML VIAL IVPUSH (05:34)
[2022-01-11 06:14] LABS: MANUAL DIFF FLAG NO
[2022-01-11 06:44] LABS: Basophils Percent Auto 0.3 % (0-2); Eosinophils Percent Auto 0.6 % (0-4); Hematocrit 33.2 % (37.0-47.0); Hemoglobin 10.9 g/dl (12.0-16.0); Imm Gran Abs Auto 0.03 X10*3/uL (0.00-0.03); Imm Gran Pct Auto 0.4 % (0.0-0.4); Lymphocytes Absolute Auto 1.2 X10*3/uL (1.2-4.9); Lymphocytes Percent Auto 17.7 % (20-40); Mean Corpuscular HGB Conc 32.8 g/dl (31.0-35.0); Mean Corpuscular Volume 100.6 fL (80.0-98.0); Mean Platelet Volume 10.4 fL (9.4-12.3); Monocytes Absolute Auto 0.6 X10*3/uL (0.1-1.2); Monocytes Percent Auto 8.8 % (2-11); Neutrophils Absolute Auto 4.9 x10*3/uL (2.0-8.3); Neutrophils Percent Auto 72.2 % (45-73); Platelet Count 243 X10*3/uL (160-400); Red Cell Distribution Width 13.2 % (11.0-16.0); White Blood Count 6.8 X10*3/uL (4.8-10.8)
[2022-01-11 07:09] LABS: Anion Gap 12 (12-20); Blood Urea Nitrogen 8 mg/dL (9-16); Calcium 8.3 mg/dL (8.4-10.2); Carbon Dioxide 22 mmol/L (22-29); Chloride 109 mmol/L (96-108); Creatinine Clr Calc Pharmacy 70.9; Estimated Glomerular Filt Rate > 60; Glucose Random 78 mg/dL (60-115); Potassium 3.8 mmol/L (3.3-5.1); Sodium 139 mmol/L (135-145)
[2022-01-11 08:00] VITALS: BP 116/64; PULSE 69; RESP 18; TEMP 36.6; O2SAT 97
--- NOTE | 2022-01-11 09:03 | P.PNGS_ITS ---
Subjective Subjective Date of Service: 01/11/22 <RANDOLPH Crowell - Last Filed: 01/11/22 09:11> 01/11/22 <Max Frye MD - Last Filed: 01/11/22 11:40> Interval history: Pt reports that she had a large dark bowel movement this morning. Feels less distended today, has mild abdominal pain, controlled by meds. Intermittent nausea, no vomiting. Has ambulated to bathroom, voiding without difficulty. <RANDOLPH Crowell - Last Filed: 01/11/22 09:11> Physical Exam Vital Signs: Vital Signs: Last Vital Signs Temp 98 F 01/11/22 08:00 Pulse 69 01/11/22 08:00 Resp 18 01/11/22 08:00 BP 116/64 01/11/22 08:00 Pulse Ox 97 01/11/22 08:00 O2 Del Method 01/11/22 08:00 BMI result Body Mass Index 22.3 <RANDOLPH Crowell - Last Filed: 01/11/22 09:11> Const: General: cooperative and no acute distress <RANDOLPH Crowell - Last Filed: 01/11/22 09:11> Orientation/consciousness: patient oriented x3 <RANDOLPH Crowell Last Filed: 01/11/22 09:11> GI: Other: soft, mildly distended, tender to palpation around old ostomy site, dressing over site C/D/I <RANDOLPH Crowell - Last Filed: 01/11/22 09:11> Neuro: General: patient oriented x3 <RANDOLPH Crowell - Last Filed: 01/11/22 09:11> Objective Data Active Medications Hydromorphone HCl (Hydromorphone Hcl 1 Mg/Ml Syringe) 1 mg IVPUSH Q2H PRN; Protocol PRN Reason: Pain, Severe (Pain Scale 7-10) Last Admin: 01/11/22 06:48 Dose: 1 mg Documented By: LETITIA Sodium Chloride (Ns) 1,000 mls @ 100 mls/hr IVCONT .Q10H [facility] Last Admin: 01/11/22 01:48 Dose: 100 mls/hr Documented By: LETITIA Ketorolac Tromethamine (Ketorolac Tromethamine 15 Mg/Ml Vial) 15 mg IVPUSH Q6H PRN PRN Reason: Pain, Moderate (Pain Scale 4-6 Last Admin: 01/11/22 05:34 Dose: 15 mg Documented By: LETITIA Metoclopramide HCl (Metoclopramide Hcl 10 Mg/2 Ml Vial) 10 mg IVPUSH Q6H PRN PRN Reason: Nausea and Vomiting Ondansetron HCl (Ondansetron Hcl 4 Mg/2 Ml Vial) 4 mg IVPUSH Q8H PRN PRN Reason: Nausea and Vomiting Sodium Chloride (0.9 % Sodium Chloride Flush 3 Ml Syringe) [address] [facility] Last Admin: 01/10/22 20:11 Dose: Not Given Documented By: LETITIA Non-Admin Reason: IV Running <RANDOLPH Crowell - Last Filed: 01/11/22 09:11> Labs CBC & Chem 7: : 01/11/22 05:42 01/11/22 05:42 <RANDOLPH Crowell - Last Filed: 01/11/22 09:11> Labs: Laboratory Results - last 24 hr 01/11/22 01/11/22 05:42 05:42 MCV 100.6 H MCH 33.0 MCHC 32.8 RDW 13.2 Plt Count 243 MPV 10.4 Immature Gran % (Auto) 0.4 Neut % (Auto) 72.2 Lymph % (Auto) 17.7 L [place] % (Auto) 8.8 Eos % (Auto) 0.6 Baso % (Auto) 0.3 Lymph # (Auto) 1.2 [place] # (Auto) 0.6 Eos # (Auto) 0.0 Baso # (Auto) 0.0 Abs Immat Gran (auto) 0.03 Absolute Neuts (auto) 4.9 Absolute Nucleated RBC 0.000 Nucleated RBC % (auto) 0.0 Anion Gap 12 Estim Creat Clear Calc 70.9 Estimated GFR > 60 Random Glucose 78 Calcium 8.3 L D <RANDOLPH Crowell - Last Filed: 01/11/22 09:11> Microbiology Microbiology Results: Microbiology 01/10/22 06:11 Blood Culture - Preliminary Blood - Venous No growth after 24 hours. 01/10/22 06:06 Blood Culture - Preliminary Blood - Venous No growth after 24 hours. <RANDOLPH Crowell - Last Filed: 01/11/22 09:11> Procedures Date of Service Date of Service: 01/11/22 <RANDOLPH Crowlel - Last Filed: 01/11/22 09:11> Progress Note: A&P Assessment and plan (1) SBO (small bowel obstruction): Status: Acute <RANDOLPH Crowell - Last Filed: 01/11/22 09:11> Assessment and Plan: Pt with history of rectal cancer requiring diversion, now s/p reversal of diverting ileostomy in [place], readmitted here with postop SBO. For now continue NPO/IVF Pain control. nausea control PRN OOB/ambulation Trend labs, replete electrolytes PRN Case discussed with Dr. Frye. <RANDOLPH Crowell - Last Filed: 01/11/22 09:11> Pt with history of rectal cancer requiring diversion, now s/p reversal of diverting ileostomy in [place], readmitted here with postop SBO. For now continue NPO/IVF Pain control. nausea control PRN OOB/ambulation Trend labs, replete electrolytes PRN Case discussed with Dr. Frye. Patient complaining of nausea/vomiting and abdominal pain CT reviewed - possible SBO at the anastomosis Insert NG tube NPO Abdomen otherwise benign Seen and examined independently - agree with RANDOLPH Yadav <Max Frye MD - Last Filed: 01/11/22 11:40> Time Spent With Patient Time: Total time spent is greater than 50% in coordination of care (as documented) at patient's floor/unit and/or counseling patient: <RANDOLPH Crowell - Last Filed: 01/11/22 09:11> Quality Stroke Does the patient have a stroke diagnosis?: No <RANDOLPH Crowell - Last Filed: 01/11/22 09:11> VTE Prior VTE?: No <RANDOLPH Crowell - Last Filed: 01/11/22 09:11> VTE Risk Level:: Surgical - low <RANDOLPH Crowell Last Filed: 01/11/22 09:11> VTE Device Contraindication: N/A - Device Ordered <RANDOLPH Crowell - Last Filed: 01/11/22 09:11> VTE Drug Contraindication: Treatment Not Indicated <RANDOLPH Crowell - Last Filed: 01/11/22 09:11>
[2022-01-11] MEDS: ondansetron HCL 4 MG/2 ML VIAL IVPUSH (10:42)
[2022-01-11 11:22] VITALS: BP 146/78; PULSE 65; RESP 18; TEMP 36.4; O2SAT 100
--- NOTE | 2022-01-11 15:26 | PM.EVENT ---
Event Note Date of Service: 01/11/22 Event Note: Patient had complained of vomiting this morning NG tube therefore inserted Abdomen distended but soft Chest x-ray confirms good location of NG tube tip Continue NPO, NG tube to low wall suction
[2022-01-11 16:00] VITALS: BP 130/81; PULSE 89; RESP 18; TEMP 37.1; O2SAT 98
[2022-01-12] VITALS (10 sets, daily range): BP systolic 112–137; BP diastolic 64–79; PULSE 74–100; RESP 17–20; TEMP 36.8–37.1; O2SAT 95–98
[2022-01-12] MEDS: HYDROmorphone HCl 1 MG/ML SYRINGE IVPUSH ×10 (00:02→23:41)
[2022-01-12] MEDS: 0.9 % Sodium Chloride Flush 3 ML SYRINGE IVFLUSH ×2 (00:04→23:47)
[2022-01-12 06:17] LABS: MANUAL DIFF FLAG NO
[2022-01-12 06:30] LABS: Basophils Percent Auto 0.2 % (0-2); Eosinophils Percent Auto 0.2 % (0-4); Hematocrit 32.1 % (37.0-47.0); Hemoglobin 10.3 g/dl (12.0-16.0); Imm Gran Abs Auto 0.04 X10*3/uL (0.00-0.03); Imm Gran Pct Auto 0.5 % (0.0-0.4); Lymphocytes Absolute Auto 1.1 X10*3/uL (1.2-4.9); Lymphocytes Percent Auto 12.1 % (20-40); Mean Corpuscular HGB Conc 32.1 g/dl (31.0-35.0); Mean Corpuscular Hemoglobin 32.9 pg (27.0-33.0); Mean Corpuscular Volume 102.6 fL (80.0-98.0); Mean Platelet Volume 9.8 fL (9.4-12.3); Monocytes Absolute Auto 0.7 X10*3/uL (0.1-1.2); Monocytes Percent Auto 7.3 % (2-11); Neutrophils Absolute Auto 7.1 x10*3/uL (2.0-8.3); Neutrophils Percent Auto 79.7 % (45-73); Platelet Count 274 X10*3/uL (160-400); Red Blood Count 3.13 X10*6/uL (4.20-5.50); Red Cell Distribution Width 13.2 % (11.0-16.0); White Blood Count 8.9 X10*3/uL (4.8-10.8)
[2022-01-12 06:47] LABS: Anion Gap 17 (12-20); Blood Urea Nitrogen 10 mg/dL (9-16); Carbon Dioxide 18 mmol/L (22-29); Chloride 109 mmol/L (96-108); Creatinine Clr Calc Pharmacy 67.1; Estimated Glomerular Filt Rate > 60; Glucose Random 68 mg/dL (60-115); Potassium 4.2 mmol/L (3.3-5.1); Sodium 140 mmol/L (135-145)
[2022-01-12] MEDS: Ketorolac Tromethamine 15 MG/ML VIAL IVPUSH ×2 (08:51→19:11)
--- NOTE | 2022-01-12 09:19 | PM.PNGS ---
Subjective Subjective Date of Service: 01/12/22 <RANDOLPH Crowell - Last Filed: 01/12/22 09:24> 01/12/22 <Max Frye MD - Last Filed: 01/12/22 11:11> Interval history: Pt feels so-so this morning. Denies nausea with NG tube in place. Having some pain, waiting for pain meds. Feels a bit bloated. Wants to get OOB to chair this morning. <RANDOLPH Crowell - Last Filed: 01/12/22 09:24> Physical Exam Vital Signs: Vital Signs: Last Vital Signs Temp 98.7 F 01/12/22 07:22 Pulse 85 01/12/22 07:22 Resp 18 01/12/22 07:22 BP 127/67 01/12/22 07:22 Pulse Ox 96 01/12/22 07:22 O2 Del Method 01/12/22 07:22 BMI result Body Mass Index 22.3 <RANDOLPH Crowell - Last Filed: 01/12/22 09:24> GI: Other: soft, mildly distended, appropriately tender dressings C/D/I- changed today, old ostomy site clean with packing removed today <RANDOLPH Crowell - Last Filed: 01/12/22 09:24> Objective Data Active Medications Hydromorphone HCl (Hydromorphone Hcl 1 Mg/Ml Syringe) 1 mg IVPUSH Q2H PRN; Protocol PRN Reason: Pain, Severe (Pain Scale 7-10) Last Admin: 01/12/22 08:51 Dose: 1 mg Documented By: MAGEN Ketorolac Tromethamine (Ketorolac Tromethamine 15 Mg/Ml Vial) 15 mg IVPUSH Q6H PRN PRN Reason: Pain, Moderate (Pain Scale 4-6 Last Admin: 01/12/22 08:51 Dose: 15 mg Documented By: MAGEN Metoclopramide HCl (Metoclopramide Hcl 10 Mg/2 Ml Vial) 10 mg IVPUSH Q6H PRN PRN Reason: Nausea and Vomiting Ondansetron HCl (Ondansetron Hcl 4 Mg/2 Ml Vial) 4 mg IVPUSH Q8H PRN PRN Reason: Nausea and Vomiting Last Admin: 01/11/22 10:42 Dose: 4 mg Documented By: LYN Sodium Chloride (0.9 % Sodium Chloride Flush 3 Ml Syringe) 3 ml IVFLUSH [facility] Last Admin: 01/12/22 08:51 Dose: Not Given Documented By: MAGEN Non-Admin Reason: IV Running <RANDOLPH Crowell - Last Filed: 01/12/22 09:24> Labs CBC & Chem 7: : 01/12/22 06:05 01/12/22 06:05 <RANDOLPH Crowell - Last Filed: 01/12/22 09:24> Labs: Laboratory Results - last 24 hr 01/12/22 01/12/22 06:05 06:05 MCV 102.6 H MCH 32.9 MCHC 32.1 RDW 13.2 Plt Count 274 MPV 9.8 Immature Gran % (Auto) 0.5 H Neut % (Auto) 79.7 H Lymph % (Auto) 12.1 L [place] % (Auto) 7.3 Eos % (Auto) 0.2 Baso % (Auto) 0.2 Lymph # (Auto) 1.1 L [place] # (Auto) 0.7 Eos # (Auto) 0.0 Baso # (Auto) 0.0 Abs Immat Gran (auto) 0.04 H Absolute Neuts (auto) 7.1 Absolute Nucleated RBC 0.000 Nucleated RBC % (auto) 0.0 Anion Gap 17 Estim Creat Clear Calc 67.1 Estimated GFR > 60 Random Glucose 68 Calcium 8.0 L <RANDOLPH Crowell - Last Filed: 01/12/22 09:24> Microbiology Microbiology Results: Microbiology 01/10/22 06:11 Blood Culture - Preliminary Blood - Venous No growth after 48 hours. 01/10/22 06:06 Blood Culture - Preliminary Blood - Venous No growth after 48 hours. <RANDOLPH Crowell - Last Filed: 01/12/22 09:24> Procedures Date of Service Date of Service: 01/12/22 <RANDOLPH Crowell - Last Filed: 01/12/22 09:24> Progress Note: A&P Assessment and plan (1) SBO (small bowel obstruction): Status: Acute <RANDOLPH Crowell - Last Filed: 01/12/22 09:24> Assessment and Plan: Pt with history of rectal cancer requiring diversion, now s/p reversal of diverting ileostomy in [place], readmitted here with postop SBO. Continue NPO/IVF NGT to LWS Pain control. nausea control PRN OOB/ambulation Trend labs, replete electrolytes PRN DSD to cover abdominal wounds, packing removed KUB this AM Case discussed with Dr.? Frye. <RANDOLPH Crowell - Last Filed: 01/12/22 09:24> Pt with history of rectal cancer requiring diversion, now s/p reversal of diverting ileostomy in [place], readmitted here with postop SBO. Continue NPO/IVF NGT to LWS Pain control. nausea control PRN OOB/ambulation Trend labs, replete electrolytes PRN DSD to cover abdominal wounds, packing removed KUB this AM Case discussed with Dr.? Frye. she says she is pasing flatus ambulated this morning abd distended, soft, incision clean, packing removed keep NGT ffup KUB await return of GI function possible SB series of she does not improve <Max Frye MD - Last Filed: 01/12/22 11:11> Time Spent With Patient Time: Total time spent is greater than 50% in coordination of care (as documented) at patient's floor/unit and/or counseling patient: <RANDOLPH Crowell - Last Filed: 01/12/22 09:24> Quality Stroke Does the patient have a stroke diagnosis?: No <RANDOLPH Crowell - Last Filed: 01/12/22 09:24> VTE Prior VTE?: No <RANDOLPH Crowell - Last Filed: 01/12/22 09:24> VTE Risk Level:: Surgical - low <RANDOLPH Crowell - Last Filed: 01/12/22 09:24> VTE Device Contraindication: N/A - Device Ordered <RANDOLPH Crowell - Last Filed: 01/12/22 09:24> VTE Drug Contraindication: Treatment Not Indicated <RANDOLPH Crowell - Last Filed: 01/12/22 09:24>
[2022-01-12] MEDS: Lactated Ringers 1,000 ML 100 ML IVCONT (21:28)
--- NOTE | 2022-01-12 21:52 | PC.NURSE ---
Attempted to clarify if patient should have ivf as NS was automatically d/c by pharmacy. Reached out to Dr Jiang but received message she was not covering patient today. Reached out to Dr Ospina, who ordered LR at 100 ml /hr to not be discontinued unless authorized by MD. Order entered into computer.
[2022-01-13] VITALS (8 sets, daily range): BP systolic 107–128; BP diastolic 63–79; PULSE 71–94; RESP 17–18; TEMP 36.8–37.6; O2SAT 96–98
[2022-01-13] MEDS: HYDROmorphone HCl 1 MG/ML SYRINGE IVPUSH ×9 (02:08→22:24)
--- NOTE | 2022-01-13 08:16 | PM.PNGS ---
Subjective Subjective Date of Service: 01/13/22 Interval history: Still with abdominal pain although states that this seems to be less Passing flatus Had water stools No vomiting Physical Exam Vital Signs: Vital Signs: Last Vital Signs Temp 99.6 F 01/13/22 07:30 Pulse 71 01/13/22 07:30 Resp 17 01/13/22 07:30 BP 107/63 01/13/22 07:30 Pulse Ox 97 01/13/22 07:30 O2 Del Method 01/13/22 07:30 BMI result Body Mass Index 22.3 Const: General: comfortable and no acute distress Resp: Effort & Inspection: normal respiratory effort Cardio: Rate: regular rate GI: Other: Distended, although less compared to yesterday, soft, no guarding rebound, incision clean Objective Data Active Medications Hydromorphone HCl (Hydromorphone Hcl 1 Mg/Ml Syringe) 1 mg IVPUSH Q2H PRN; Protocol PRN Reason: Pain, Severe (Pain Scale 7-10) Last Admin: 01/13/22 06:12 Dose: 1 mg Documented By: SOFIYA Acetaminophen (Ofirmev) 1,000 mg in 100 mls @ 400 mls/hr IV Q6H [facility] Stop: 01/13/22 09:14 Last Infusion: 01/13/22 04:18 Dose: 0 mls/hr Documented By: SOFIYA Lactated Ringer's (Lr) 1,000 mls @ 100 mls/hr IVCONT .Q10H [facility] Last Admin: 01/12/22 21:28 Dose: 100 mls/hr Documented By: FELISHA Ketorolac Tromethamine (Ketorolac Tromethamine 15 Mg/Ml Vial) 15 mg IVPUSH Q6H PRN PRN Reason: Pain, Moderate (Pain Scale 4-6 Last Admin: 01/12/22 19:11 Dose: 15 mg Documented By: FELISHA Metoclopramide HCl (Metoclopramide Hcl 10 Mg/2 Ml Vial) 10 mg IVPUSH Q6H PRN PRN Reason: Nausea and Vomiting Ondansetron HCl (Ondansetron Hcl 4 Mg/2 Ml Vial) 4 mg IVPUSH Q8H PRN PRN Reason: Nausea and Vomiting Last Admin: 01/11/22 10:42 Dose: 4 mg Documented By: HO.MATTHEP Sodium Chloride (0.9 % Sodium Chloride Flush 3 Ml Syringe) 3 ml IVFLUSH QSHIFT [facility] Last Admin: 01/12/22 23:47 Dose: 3 ml Documented By: KYARAK Labs CBC & Chem 7: 01/12/22 06:05 01/12/22 06:05 Microbiology Microbiology Results: Microbiology 01/10/22 06:11 Blood Culture - Preliminary Blood - Venous No growth after 48 hours. 01/10/22 06:06 Blood Culture - Preliminary Blood - Venous No growth after 48 hours. Procedures Date of Service Date of Service: 01/13/22 Progress Note: A&P Assessment and plan (1) SBO (small bowel obstruction): Status: Acute Assessment and Plan: Still with abdominal pain but distension has improved Continues to pass flatus, has BMs Exam benign Gastrografin study ordered - this can be therapeutic as well IV fluids Continue bowel rest Ambulate Time Spent With Patient Time: Total time spent is greater than 50% in coordination of care (as documented) at patient's floor/unit and/or counseling patient: Quality Stroke Does the patient have a stroke diagnosis?: No VTE Prior VTE?: No VTE Risk Level:: Surgical - low VTE Device Contraindication: N/A - Device Ordered VTE Drug Contraindication: Treatment Not Indicated
[2022-01-13 08:26] LABS: MANUAL DIFF FLAG NO
[2022-01-13 08:28] LABS: Eosinophils Absolute Auto 0.1 X10*3/uL (0.0-0.4); Eosinophils Percent Auto 1.7 % (0-4); Hematocrit 29.1 % (37.0-47.0); Hemoglobin 9.3 g/dl (12.0-16.0); Imm Gran Abs Auto 0.01 X10*3/uL (0.00-0.03); Imm Gran Pct Auto 0.3 % (0.0-0.4); Lymphocytes Absolute Auto 0.5 X10*3/uL (1.2-4.9); Lymphocytes Percent Auto 17.6 % (20-40); Mean Corpuscular Volume 103.2 fL (80.0-98.0); Mean Platelet Volume 9.3 fL (9.4-12.3); Monocytes Absolute Auto 0.4 X10*3/uL (0.1-1.2); Monocytes Percent Auto 13.3 % (2-11); Neutrophils Percent Auto 67.1 % (45-73); Platelet Count 257 X10*3/uL (160-400); Red Blood Count 2.82 X10*6/uL (4.20-5.50); Red Cell Distribution Width 13.1 % (11.0-16.0)
[2022-01-13 08:45] LABS: Anion Gap 18 (12-20); Blood Urea Nitrogen 5 mg/dL (9-16); Calcium 8.1 mg/dL (8.4-10.2); Carbon Dioxide 15 mmol/L (22-29); Chloride 107 mmol/L (96-108); Creatinine Clr Calc Pharmacy 68.9; Estimated Glomerular Filt Rate > 60; Glucose Random 67 mg/dL (60-115); Potassium 3.4 mmol/L (3.3-5.1); Sodium 137 mmol/L (135-145)
[2022-01-13] MEDS: ondansetron HCL 4 MG/2 ML VIAL IVPUSH (08:48)
[2022-01-13] MEDS: 0.9 % Sodium Chloride Flush 3 ML SYRINGE IVFLUSH (09:05)
[2022-01-13] MEDS: Lactated Ringers 1,000 ML 100 ML IVCONT ×3 (09:06→21:25)
[2022-01-13] MEDS: Metoclopramide HCl 10 MG/2 ML VIAL IVPUSH (11:11)
[2022-01-13] MEDS: Diatrizoate Meglumine, Sodium 120 ML SOLUTION PO ×2 (12:42→12:43)
[2022-01-14] VITALS (10 sets, daily range): BP systolic 113–125; BP diastolic 68–74; PULSE 81–92; RESP 18–20; TEMP 36.5–36.8; O2SAT 94–97
[2022-01-14] MEDS: HYDROmorphone HCl 1 MG/ML SYRINGE IVPUSH ×10 (00:33→22:54)
[2022-01-14] MEDS: 0.9 % Sodium Chloride Flush 3 ML SYRINGE IVFLUSH (00:40)
[2022-01-14] MEDS: Lactated Ringers 1,000 ML 100 ML IVCONT ×2 (08:40→20:10)
[2022-01-14 08:46] LABS: Anion Gap 19 (12-20); Blood Urea Nitrogen 2 mg/dL (9-16); Calcium 8.2 mg/dL (8.4-10.2); Carbon Dioxide 17 mmol/L (22-29); Chloride 106 mmol/L (96-108); Creatinine Clr Calc Pharmacy 68.9; Estimated Glomerular Filt Rate > 60; Glucose Random 74 mg/dL (60-115); Potassium 3.5 mmol/L (3.3-5.1); Sodium 138 mmol/L (135-145)
--- NOTE | 2022-01-14 08:49 | P.CDIC_ITS ---
CDI Concurrent Query Documentation Clarification: PHYSICIAN'S DOCUMENTATION REQUEST Date of Query: 01/14/22 0849 Patient Name: Amanda De Admit Date: 01/10/22 Dear Doctor, A review of the medical record indicates additional documentation may be needed. Please review below and update the documentation accordingly. Clinical Indicators: The following diagnoses or signs and symptoms were noted in the patient record: Risk Factors/Clinical Indicators/Treatments Per MD progress note 01/12/22: s/p reversal of diverting ileostomy in [place], readmitted here with postop SBO. Based on the above, could you clarify in the Progress Notes the appropriate diagnosis, if significant, that supports the above abnormalities and additional evaluation, monitoring, and/or treatment rendered: * Postprocedural intestinal obstruction with partial obstruction * Post procedural intestinal obstruction with complete obstruction * Other (please specify) * Unable to determine Use of terms such as suspected, likely, concern for, or probable (associated with a specific diagnosis that is being evaluated, monitored, or treated as if it exists) are acceptable and can be coded in the inpatient setting, when docume nted at the time of discharge. Thank you, Nehal Lechuga RN Extension: [phone] Please use your independent medical judgment in providing your response. THIS QUERY IS PART OF THE PERMANENT MEDICAL RECORD Provider Response: Other (post procedure intestinal obstruction, partial) Other Diagnosis: postop procedural intestinal obstruction, partial
--- NOTE | 2022-01-14 09:21 | P.PNGS_ITS ---
Subjective Subjective Date of Service: 01/14/22 Interval history: feels much better passing a lot of flatus, BMs denies pain SB series attempted yesterday - oral contrast however was suctioned out with NGT Physical Exam Vital Signs: Vital Signs: Last Vital Signs Temp 97.7 F 01/14/22 08:00 Pulse 87 01/14/22 08:00 Resp 18 01/14/22 08:00 BP 125/73 01/14/22 08:00 Pulse Ox 97 01/14/22 08:00 O2 Del Method 01/14/22 08:00 BMI result Body Mass Index 22.3 Const: General: comfortable and no acute distress Resp: Effort & Inspection: normal respiratory effort Cardio: Rate: regular rate GI: Palpation (GI): Soft to palpation, not firm, nontender and no guarding Objective Data Active Medications Hydromorphone HCl (Hydromorphone Hcl 1 Mg/Ml Syringe) 1 mg IVPUSH Q2H PRN; Protocol PRN Reason: Pain, Severe (Pain Scale 7-10) Last Admin: 01/14/22 08:34 Dose: 1 mg Documented By: EDISON Lactated Ringer's (Lr) 1,000 mls @ 100 mls/hr IVCONT .Q10H [facility] Last Admin: 01/14/22 08:40 Dose: 100 mls/hr Documented By: EDISON Ketorolac Tromethamine (Ketorolac Tromethamine 15 Mg/Ml Vial) 15 mg IVPUSH Q6H PRN PRN Reason: Pain, Moderate (Pain Scale 4-6 Last Admin: 01/12/22 19:11 Dose: 15 mg Documented By: FELISHA Metoclopramide HCl (Metoclopramide Hcl 10 Mg/2 Ml Vial) 10 mg IVPUSH Q6H PRN PRN Reason: Nausea and Vomiting Last Admin: 01/13/22 11:11 Dose: 10 mg Documented By: EDISON Ondansetron HCl (Ondansetron Hcl 4 Mg/2 Ml Vial) 4 mg IVPUSH Q8H PRN PRN Reason: Nausea and Vomiting Last Admin: 01/13/22 08:48 Dose: 4 mg Documented By: EDISON Sodium Chloride (0.9 % Sodium Chloride Flush 3 Ml Syringe) 3 ml IVFLUSH QSHIFT [facility] Last Admin: 01/14/22 08:35 Dose: Not Given Documented By: EDISON Non-Admin Reason: IV Running Labs CBC & Chem 7: 01/13/22 08:08 01/14/22 08:07 Labs: Laboratory Results - last 24 hr 01/14/22 08:07 Anion Gap 19 Estim Creat Clear Calc 68.9 Estimated GFR > 60 Random Glucose 74 Calcium 8.2 L Procedures Date of Service Date of Service: 01/14/22 Progress Note: A&P Assessment and plan (1) SBO (small bowel obstruction): Status: Acute Assessment and Plan: symptoms resolved dc NGT ok for clear liquids abd soft, not distended incision clean doing well follow BMP Time Spent With Patient Time: Total time spent is greater than 50% in coordination of care (as documented) at patient's floor/unit and/or counseling patient: Quality Stroke Does the patient have a stroke diagnosis?: No VTE Prior VTE?: No VTE Risk Level:: Surgical - low VTE Device Contraindication: N/A - Device Ordered VTE Drug Contraindication: Treatment Not Indicated
[2022-01-15] MEDS: HYDROmorphone HCl 1 MG/ML SYRINGE IVPUSH ×8 (02:54→23:37)
[2022-01-15] MEDS: Lactated Ringers 1,000 ML 100 ML IVCONT (05:05)
[2022-01-15 08:00] VITALS: BP 122/77; PULSE 87; RESP 13; TEMP 37.3; O2SAT 93
--- NOTE | 2022-01-15 09:12 | PM.PNGS ---
Subjective Subjective Date of Service: 01/15/22 Interval history: tolerating clear liquids good flatus and BMs occasional crampy pain but much better Physical Exam Vital Signs: Vital Signs: Last Vital Signs Temp 99.2 F 01/15/22 08:00 Pulse 87 01/15/22 08:00 Resp 13 01/15/22 08:00 BP 122/77 01/15/22 08:00 Pulse Ox 93 01/15/22 08:00 O2 Del Method 01/15/22 08:00 BMI result Body Mass Index 22.3 Const: General: comfortable and no acute distress Resp: Effort & Inspection: normal respiratory effort Cardio: Rate: regular rate GI: Other: soft, no guarding rebound, minimal distension Objective Data Active Medications Hydromorphone HCl (Hydromorphone Hcl 1 Mg/Ml Syringe) 1 mg IVPUSH Q2H PRN; Protocol PRN Reason: Pain, Severe (Pain Scale 7-10) Last Admin: 01/15/22 07:48 Dose: 1 mg Documented By: EDISON Lactated Ringer's (Lr) 1,000 mls @ 100 mls/hr IVCONT .Q10H [facility] Last Admin: 01/15/22 05:05 Dose: 100 mls/hr Documented By: GISSELLE Ketorolac Tromethamine (Ketorolac Tromethamine 15 Mg/Ml Vial) 15 mg IVPUSH Q6H PRN PRN Reason: Pain, Moderate (Pain Scale 4-6 Last Admin: 01/12/22 19:11 Dose: 15 mg Documented By: FELISHA Metoclopramide HCl (Metoclopramide Hcl 10 Mg/2 Ml Vial) 10 mg IVPUSH Q6H PRN PRN Reason: Nausea and Vomiting Last Admin: 01/13/22 11:11 Dose: 10 mg Documented By: EDISON Ondansetron HCl (Ondansetron Hcl 4 Mg/2 Ml Vial) 4 mg IVPUSH Q8H PRN PRN Reason: Nausea and Vomiting Last Admin: 01/13/22 08:48 Dose: 4 mg Documented By: EDISON Sodium Chloride (0.9 % Sodium Chloride Flush 3 Ml Syringe) 3 ml IVFLUSH QSHIFT [facility] Last Admin: 01/14/22 23:21 Dose: Not Given Documented By: GISSELLE Non-Admin Reason: IV Running Labs CBC & Chem 7: 01/13/22 08:08 01/14/22 08:07 Microbiology Microbiology Results: Microbiology 01/10/22 06:11 Blood Culture - Final Blood - Venous No growth after 5 days. 01/10/22 06:06 Blood Culture - Final Blood - Venous No growth after 5 days. Procedures Date of Service Date of Service: 01/15/22 Progress Note: A&P Assessment and plan (1) SBO (small bowel obstruction): Status: Acute Assessment and Plan: clinically resolved regular diet abdomen soft and benign may be ready to be discharged later on today she has a follow-up with her surgeon in [facility] Time Spent With Patient Time: Total time spent is greater than 50% in coordination of care (as documented) at patient's floor/unit and/or counseling patient: Quality Stroke Does the patient have a stroke diagnosis?: No VTE Prior VTE?: No VTE Risk Level:: Surgical - low VTE Device Contraindication: N/A - Device Ordered VTE Drug Contraindication: Treatment Not Indicated
[2022-01-15 09:33] LABS: Blood Urea Nitrogen < 2 mg/dL (9-16); Calcium 8.3 mg/dL (8.4-10.2); Creatinine Clr Calc Pharmacy 84.2; Estimated Glomerular Filt Rate > 60; Glucose Random 126 mg/dL (60-115)
[2022-01-15 09:45] LABS: Anion Gap 11 (12-20); Carbon Dioxide 29 mmol/L (22-29); Chloride 104 mmol/L (96-108); Potassium 2.9 mmol/L (3.3-5.1); Sodium 141 mmol/L (135-145)
[2022-01-15] MEDS: 0.9 % Sodium Chloride Flush 3 ML SYRINGE IVFLUSH ×2 (10:23→20:49)
[2022-01-15] MEDS: Potassium Chloride Packet 20 MEQ PACKET 40 MEQ PO ×2 (15:51→17:56)
[2022-01-15 16:00] VITALS: BP 116/78; PULSE 96; RESP 14; TEMP 36.9; O2SAT 98
[2022-01-15] MEDS: oxyCODONE HCl Immed Release 5 MG TABLET 10 MG PO (17:56)
[2022-01-16] VITALS: BP 116/67; PULSE 84; RESP 16; TEMP 36.9; O2SAT 96
[2022-01-16] MEDS: HYDROmorphone HCl 1 MG/ML SYRINGE IVPUSH ×2 (03:51→08:09)
[2022-01-16 08:00] VITALS: BP 122/71; PULSE 84; RESP 14; TEMP 36.5; O2SAT 94
[2022-01-16 08:17] LABS: Blood Urea Nitrogen < 2 mg/dL (9-16); Creatinine Clr Calc Pharmacy 91.9; Estimated Glomerular Filt Rate > 60; Glucose Random 92 mg/dL (60-115)
[2022-01-16 09:11] LABS: Anion Gap 12 (12-20); Calcium 7.9 mg/dL (8.4-10.2); Carbon Dioxide 27 mmol/L (22-29); Chloride 106 mmol/L (96-108); Potassium 3.9 mmol/L (3.3-5.1); Sodium 141 mmol/L (135-145)
--- NOTE | 2022-01-16 10:52 | P.PNGS_ITS ---
Subjective Subjective Date of Service: 01/16/22 Patient reports: no new complaints Interval history: The patient is seen in coverage for Dr. Frye She reports continued pain with eating, is passing gas and denies any new complaints of chest pain, difficulty breathing or shortness of breath. Physical Exam Vital Signs: Vital Signs: Last Vital Signs Temp 97.7 F 01/16/22 08:00 Pulse 84 01/16/22 08:00 Resp 14 01/16/22 08:00 BP 122/71 01/16/22 08:00 Pulse Ox 94 01/16/22 08:00 O2 Del Method 01/16/22 08:00 BMI result Body Mass Index 22.3 Her abdomen has mild diffuse tenderness with no peritoneal sign. Incisions are well healed with no evidence of infection Objective Data Active Medications Hydromorphone HCl (Hydromorphone Hcl 1 Mg/Ml Syringe) 1 mg IVPUSH Q2H PRN; Protocol PRN Reason: Pain, Severe (Pain Scale 7-10) Last Admin: 01/16/22 08:09 Dose: 1 mg Documented By: LYN Potassium Chloride/Sodium Chloride () 20 meq in 1,000 mls @ 80 mls/hr IVCONT .[id number] [facility] Last Admin: 01/16/22 02:55 Dose: 80 mls/hr Documented By: IQRA Ketorolac Tromethamine (Ketorolac Tromethamine 15 Mg/Ml Vial) 15 mg IVPUSH Q6H PRN PRN Reason: Pain, Moderate (Pain Scale 4-6 Last Admin: 01/12/22 19:11 Dose: 15 mg Documented By: FELISHA Metoclopramide HCl (Metoclopramide Hcl 10 Mg/2 Ml Vial) 10 mg IVPUSH Q6H PRN PRN Reason: Nausea and Vomiting Last Admin: 01/13/22 11:11 Dose: 10 mg Documented By: EDISON Ondansetron HCl (Ondansetron Hcl 4 Mg/2 Ml Vial) 4 mg IVPUSH Q8H PRN PRN Reason: Nausea and Vomiting Last Admin: 01/13/22 08:48 Dose: 4 mg Documented By: EDISON Oxycodone HCl (Oxycodone Hcl Immed Release 5 Mg Tablet) 10 mg PO Q4H PRN PRN Reason: Pain, Moderate (Pain Scale 4-6 Last Admin: 01/15/22 17:56 Dose: 10 mg Documented By: RUFINOSOFFA Sodium Chloride (0.9 % Sodium Chloride Flush 3 Ml Syringe) 3 ml IVFLUSH QSHIFT [facility] Last Admin: 01/16/22 07:30 Dose: Not Given Documented By: LYN Non-Admin Reason: IV Running Labs CBC & Chem 7: 01/13/22 08:08 01/16/22 05:37 Labs: Laboratory Results - last 24 hr 01/16/22 05:37 Anion Gap 12 Estim Creat Clear Calc 91.9 Estimated GFR > 60 Random Glucose 92 Calcium 7.9 L Microbiology Microbiology Results: Microbiology 01/10/22 06:11 Blood Culture - Final Blood - Venous No growth after 5 days. 01/10/22 06:06 Blood Culture - Final Blood - Venous No growth after 5 days. Procedures Date of Service Date of Service: 01/16/22 Progress Note: A&P Assessment and plan (1) SBO (small bowel obstruction): Status: Acute Plan KVO IV fluid Will reassess abdominal pain tomorrow. Continue diet at present level. Time Spent With Patient Time: Total time spent is greater than 50% in coordination of care (as documented) at patient's floor/unit and/or counseling patient: Quality Stroke Does the patient have a stroke diagnosis?: No VTE Prior VTE?: No VTE Risk Level:: Surgical - low VTE Device Contraindication: N/A - Device Ordered VTE Drug Contraindication: Treatment Not Indicated
[2022-01-16] MEDS: oxyCODONE HCl Immed Release 5 MG TABLET 10 MG PO (10:56)
--- NOTE | 2022-01-16 11:57 | MHC.CM.PN ---
home today - self care RN aware
--- NOTE | 2022-01-22 16:33 | P.DS_ITS ---
DS: Providers Provider Date of Service: 01/16/22 Date of admission: 01/10/22 08:33 Primary care physician: Ky Lin MD DS: Diagnosis Discharge Diagnosis (1) SBO (small bowel obstruction): Status: Acute DS: Summary Hospital Course Hospital Course: See admitting H and P for full details. Briefly, this 51-year-old woman underwent a low anterior resection at [facility] for malignancy. Several days after discharge, she presented here at [facility] with a small-bowel obstruction. Nasogastric decompression was performed in addition to IV hydration. After a period of bowel rest, she began to have return of bowel function as evidenced by flatus and bowel movement, had her nasogastric tube removed, had her diet advanced and was discharged home in improved condition. Follow-up with [facility]. Time spent discussing smoking cessation with patient: more than 10 minutes Time Spent with Patient Time attestation: Total time spent providing and/or coordinating discharge services: Discharge coordination time: Greater than 30 minutes Quality: Safe Use of Opioids Does Pt have an Active Cancer Diagnosis on the Problem List?: Yes Opioid Measure Date for [facility] Report: 12/23/21 Opioid Measure Time for [facility] Report: 16:35 Quality: Stroke Does the patient have a stroke diagnosis?: No Physical Exam Vital Signs: Vital Signs: Last Vital Signs Temp 97.7 F 01/16/22 08:00 Pulse 84 01/16/22 08:00 Resp 14 01/16/22 08:00 BP 122/71 01/16/22 08:00 Pulse Ox 94 01/16/22 08:00 O2 Del Method 01/16/22 08:00 BMI result Body Mass Index 22.3 Discharge Plan Discharge Patient Disposition: Home, Self-Care Discharge Diagnosis: partial small-bowel obstruction Referrals: Ky Lin MD [Primary Care Provider] - 1 Week Discharge Medications: Continued famotidine 20 mg tablet 20 mg PO BID 30 Days Qty: 60 3RF oxycodone [OxyContin] 20 mg Tablet,Oral Only,Ext.Rel.12 Hr 20 mg PO Q12H Qty: 60 0RF Rx Instructions: Partial Fill upon patient request. oxycodone 10 mg Tablet 10 mg PO Q8H PRN (Reason: Breakthrough Pain, Moderate) Qty: 60 0RF Rx Instructions: Partial Fill upon patient request. folic acid 1 mg tablet 1 tab PO DAILY oxycodone 10 mg Tablet 10 mg PO Q8H PRN (Reason: Breakthrough Pain, Moderate) Qty: 60 0RF psyllium Packet 1 packet PO BID Rx Instructions: mix into at least 8 oz of water or juice before administering cyanocobalamin (vitamin B-12) 1,000 mcg Tablet 1,000 mcg PO DAILY ondansetron 8 mg tablet,disintegrating 8 mg PO Q8H PRN (Reason: Nausea And Vomiting) oxycodone [OxyContin] 20 mg tablet,oral only,ext.rel.12 hr 20 mg PO BID Discharge Orders: Discharge Order (Routine); Ordered 01/16/22 Ordered By: Antoine Ospina Diet: Advance to usual diet Activity on Discharge: No heavy lifting Stand Alone Forms: Patient Portal Discharge page Activity Restrictions/Additional Instructions: no lifting more than 15 lbs no strenuous activities ok to shower change dressings with gauze once a day Care Plan Goals: pain management Health Concerns: history of rectal cancer postop pain control Plan of Treatment: follow-up with Ulises Luther her rectal cancer oral pain meds Assessment: doing well Discharge Date/Time: 01/16/22 14:24
== END 2022-01-16 14:24 | disposition home or self-care (01) | DRG 252 ==
LOC: HO.ED 06:12 → HO.EDOVER 08:43 → HO.S3 13:58
PROVIDERS: Physician Assistant Surgical; Surgery; Admitting Provider Surgery; Emergency Provider Emergency Medicine; PCP Internal Medicine; Visit Provider Surgery
DX: K91.31 Postprocedural partial intestinal obstruction (principal); Z20.822 Contact with and (suspected) exposure to COVID-19; Z92.21 Personal history of antineoplastic chemotherapy; Z92.3 Personal history of irradiation; Z85.048 Personal history of other malignant neoplasm of rectum, rectosigmoid junction, and anus; Z98.51 Tubal ligation status; Z87.891 Personal history of nicotine dependence; Z88.6 Allergy status to analgesic agent; Z88.8 Allergy status to other drugs, medicaments and biological substances; Z79.899 Other long term (current) drug therapy
CPT/HCPCS: 36415; 71045; 74018; 74176; 74250; 80048; 80076; 83605; 83690; 85025; 87040; 87635; 96361; 96374; 96375; 96376; 99285; J0131; J1170; J1885; J2270; J2405; J2765

== ENCOUNTER 2022-02-07 21:29 | Emergency (ER) | payer OTHER, SELFPAY ==
--- NOTE | ~2022-02-07 | CT_ITS ---
EXAMINATION: CT ABDOMEN AND PELVIS WITHOUT CONTRAST CLINICAL INFORMATION: Pain. Rule out small bowel obstruction. COMPARISON: 01/10/2022 TECHNIQUE: Multidetector volumetric imaging was performed from the superior aspect of the liver through the pubic symphysis. Sagittal and coronal reformatted images were obtained on the technologist's workstation. This CT examination was performed using dose optimization techniques as appropriate, variously including the following: *Automated exposure control *Adjustment of mA and/or kV according to patient size (this includes techniques or standardized protocols for targeted exams where dose is matched to indication/reason for exam; i.e. extremities or head) *Use of iterative reconstruction technique DLP: 304 mGy-cm FINDINGS: LUNG BASES: The visualized lung bases are unremarkable. LIVER, GALLBLADDER, AND BILIARY TREE: The liver is normal in size and shape with decreased attenuation. No focal hepatic lesion or biliary ductal dilatation is present. The gallbladder is unremarkable with no evidence of radiopaque gallstones, gallbladder wall thickening, or obvious pericholecystic inflammatory changes. PANCREAS: Unremarkable. SPLEEN: Unremarkable. ADRENAL GLANDS: Unremarkable. KIDNEYS AND URETERS: The kidneys are normal in size, shape, and attenuation. No hydronephrosis, hydroureter, or calculi seen. No perinephric stranding. BLADDER: Unremarkable. GASTROINTESTINAL TRACT: The stomach is unremarkable. The proximal small bowel is normal in caliber. Fluid-filled appearance of the more distal small bowel within the pelvis were there is also wall thickening. Small amount of free fluid in this area. Diffuse fatty infiltration of the colonic wall, suggesting chronic inflammatory process. No free air. ABDOMINAL WALL: No significant hernia is appreciated. LYMPH NODES: Normal. VASCULAR: Unremarkable. PELVIC VISCERA: The uterus and adnexa are unremarkable. OSSEOUS STRUCTURES: No acute or suspicious osseous abnormality. CT/CT abdomen pelvis wo con IMPRESSION: Wall thickening with adjacent inflammation mild prominence of the small bowel within the pelvis, suggestive of enteritis. This does not have an obstructive appearance. Small volume of free fluid. Hepatic steatosis. Fleischner guidelines were followed.
[2022-02-07 22:30] LABS: Hematocrit 44.8 % (37.0-47.0); Hemoglobin 14.5 g/dl (12.0-16.0); Mean Corpuscular HGB Conc 32.4 g/dl (31.0-35.0); Mean Corpuscular Hemoglobin 31.3 pg (27.0-33.0); Mean Corpuscular Volume 96.6 fL (80.0-98.0); Mean Platelet Volume 9.5 fL (9.4-12.3); Platelet Count 372 X10*3/uL (160-400); Red Blood Count 4.64 X10*6/uL (4.20-5.50)
[2022-02-07 22:55] LABS: Alanine Aminotransferase 27 U/L (0-31); Albumin Level 3.8 g/dL (3.5-5.0); Alkaline Phosphatase 216 U/L (39-117); Anion Gap 20 (12-20); Aspartate Amino Transferase 48 U/L (5-31); Bilirubin Direct 0.3 mg/dL (0.0-0.5); Bilirubin Total 0.5 mg/dL (0.0-1.0); Blood Urea Nitrogen 4 mg/dL (9-16); Calcium 8.6 mg/dL (8.4-10.2); Carbon Dioxide 18 mmol/L (22-29); Chloride 107 mmol/L (96-108); Estimated Glomerular Filt Rate > 60; Glucose Random 111 mg/dL (60-115); Lipase 67 U/L (8-78); Potassium 3.9 mmol/L (3.3-5.1); Sodium 141 mmol/L (135-145); Total Protein 7.6 g/dL (6.5-8.0)
[2022-02-07 23:45] VITALS: BP 132/99; PULSE 100; RESP 20; TEMP 37.2; O2SAT 100; BMI 47.5
[2022-02-08 02:18] VITALS: BP 130/92; PULSE 99; RESP 18; O2SAT 100
--- NOTE | 2022-02-08 03:20 | ED_ITS ---
HPI - Abdominal Pain General Chief Complaint: Abdominal Pain Stated Complaint: diarrhea, abdominal pain Time Seen by Provider: 02/08/22 02:45 Source: patient Mode of arrival: ambulatory Limitations: no limitations History of Present Illness HPI narrative: Patient comes emergency room complaining of abdominal pain, diarrhea. Patient's symptoms started 2 days ago. Patient states that she has tried Pepto-Bismol and some capsules which she thinks it is loperamide, without any relief. Patient states that she has severe abdominal pain. Of note, patient was discharged from this hospital 2 and half weeks ago due to a small bowel obstruction. Patient had an ileostomy reversal on January 08 at [facility]. Patient denies fever chills, no UTI or URI symptoms Related Data Home Medications Medication Instructions Recorded Confirmed folic acid 1 mg tablet 1 tab PO DAILY 10/08/21 01/10/22 cyanocobalamin (vitamin B-12) 1,000 mcg PO DAILY 01/10/22 01/10/22 1,000 mcg tablet ondansetron 8 mg disintegrating 8 mg PO Q8H PRN Nausea And Vomiting 01/10/22 01/10/22 tablet oxycodone 20 mg tablet,crush 20 mg PO BID 01/10/22 01/10/22 resistant,extended release 12 hr (OxyContin) psyllium 1 packet PO BID 01/10/22 01/10/22 Previous Rx's Medication Instructions Recorded oxycodone 10 mg tablet 10 mg PO Q8H PRN Breakthrough 10/27/21 Pain, Moderate #60 tabs famotidine 20 mg tablet 20 mg PO BID 30 days #60 tabs 12/22/21 oxycodone 20 mg tablet,crush 20 mg PO Q12H #60 tabs 01/11/22 resistant,extended release 12 hr (OxyContin) oxycodone 10 mg tablet 10 mg PO Q8H PRN Breakthrough 02/02/22 Pain, Moderate #60 tabs diphenoxylate-atropine 2.5 1 tab PO TID PRN diarrhea #9 tabs 02/08/22 mg-0.025 mg tablet (Lomotil) Allergies Allergy/AdvReac Type Severity Reaction Status Date / Time gabapentin AdvReac Unknown dizziness, Verified 01/10/22 03:34 lightheadedness ibuprofen AdvReac Unknown nausea and Verified 01/10/22 03:34 vomiting Review of Systems Review of Systems Constitutional : No Weight loss, No Fever, No Chills, No Night Sweats, No Fatigue, No Malaise ENT/Mouth : No Hearing loss, No Ear Pain, No Nasal Congestion, No Sinus Pain, No Hoarseness, No sore throat, No Rhinorrhea, No Swallowing Difficulty Eyes: No Eye Pain, No Swelling, No Redness, No Foreign Body, No Discharge, No Vision Changes Cardiovascular : No Chest Pain, No SOB, No Dyspnea on Exertion, No Orthopnea, No Edema, No Palpitations Respiratory : No Cough, No Sputum, No Wheezing, No Smoke Exposure, No Dyspnea Gastrointestinal : No Nausea, No Vomiting, complaining of watery diarrhea, diffuse abdominal pain Genitourinary : no irregular bleeding, No Dysuria, No Urinary Frequency, No Hematuria, No Urinary Incontinence, No Urgency, No Flank Pain, No Urinary Flow Changes, No Hesitancy Musculoskeletal : No joint pain, No Myalgias, No Joint Swelling Skin : No Skin Lesions, No rash Neuro : No Weakness, No Numbness, No Paresthesias, No Loss of Consciousness, No Dizziness, No Headache Psych : No Anxiety/Panic, No Depression, No SI/HI/AH/VH, No Social Issues, Heme/Lymph: No Bruising, No Bleeding,No Lymphadenopathy Endocrine : No Polyuria, No Polydipsia, No Temperature Intolerance PMFSH Past Medical History Medical History Adenocarcinoma of rectum Chronic pain syndrome H. pylori infection Hx of gastroesophageal reflux (GERD) Lumbar back pain with radiculopathy affecting left lower extremity Rectal cancer Sacroiliitis Tubular adenoma Surgical History H/O tubal ligation History of bursectomy History of esophagogastroduodenoscopy (EGD) History of nasal polypectomy History of reversal of ileostomy Hx of colonoscopy Hx of hemorrhoidectomy Hx of ileostomy S/P anal fissurectomy Family History Family History Mother Diabetes HTN (hypertension) Father Diabetes Heart attack Brother Diabetes Heart problem HTN (hypertension) Maternal Aunt Breast cancer Sister Uterus cancer Maternal Aunt Breast cancer Mother Lung cancer Social History Social History Household Members: Spouse Housing: House Are you a primary primary health care nurse to a significant other at home: No Do you presently have visiting nurse or other home services: No Alcohol intake: never Patient Tobacco Use Status: Former Tobacco user Quit Date: 2020 Advance Directives: No Advance Directives Information Provided: No service: No Current occupational status: unemployed Physical Exam ED Vital Signs: Vital Signs - 24 hr 02/07/22 23:45 02/08/22 02:18 02/08/22 03:55 Temperature 98.9 F Pulse Rate 100 99 Respiratory Rate 20 18 14 Blood Pressure 132/99 H 130/92 H Pulse Oximetry 100 100 Oxygen Delivery Method Room Air BMI result Body Mass Index 47.5 Const Other: Appearance: Alert. Oriented X3. Patient looks uncomfortable Eyes: Pupils equal, round and reactive to light. ENT: Pharynx normal. Dry oral mucosa Neck: Normal inspection. Neck supple. No lymph nodes noted. No crepitus CVS: Normal heart rate and rhythm. Pulses normal. Normal S1 and S2 Respiratory: No respiratory distress. Breath sounds normal. No Wheezing. No rales Abdomen: Soft , diffuse abdominal discomfort but much worse in the periumbilical area Skin: Skin warm and dry. Normal skin color. Normal skin turgor. Extremities: No lower extremity edema. No Lacerations. No Rash Neuro: Oriented X 3. No motor deficit. No sensory deficit. Moving all extremities. No slurred speech. CN 2 through 12 grossly intact Psych: calm, cooperative, normal affect Course Course Course Narrative: Patient's white blood cell count within normal limits, her history, we will go ahead and get a CT scan which is pending. CT scan shows enteritis. At this time, antibiotics not indicated. Patient will be sent home with a prescription for Lomotil MDM - Abdominal Pain Lab Data Result diagrams: 02/07/22 22:20 02/07/22 22:20 Labs: Lab Results 02/07/22 02/07/22 Range/Units 22:20 22:20 WBC 7.0 (4.8-10.8) X10*3/uL RBC 4.64 D (4.20-5.50) X10*6/uL Hgb 14.5 D (12.0-16.0) g/dl Hct 44.8 D (37.0-47.0) % MCV 96.6 (80.0-98.0) fL MCH 31.3 (27.0-33.0) pg MCHC 32.4 (31.0-35.0) g/dl RDW 13.0 (11.0-16.0) % Plt Count 372 D (160-400) X10*3/uL MPV 9.5 (9.4-12.3) fL Absolute Nucleated RBC 0.000 (0.0-0.012) X10*3/uL Nucleated RBC % (auto) 0.0 (0.0-0.2) /100WBC Sodium 141 (135-145) mmol/L Potassium 3.9 (3.3-5.1) mmol/L Chloride 107 (96-108) mmol/L Carbon Dioxide 18 L (22-29) mmol/L Anion Gap 20 (12-20) BUN 4 L D (9-16) mg/dL Creatinine 0.76 (0.5-1.4) mg/dL Estim Creat Clear Calc TNP Estimated GFR > 60 Random Glucose 111 (60-115) mg/dL Calcium 8.6 D (8.4-10.2) mg/dL Total Bilirubin 0.5 (0.0-1.0) mg/dL Direct Bilirubin 0.3 (0.0-0.5) mg/dL AST 48 H (5-31) U/L ALT 27 (0-31) U/L Alkaline Phosphatase 216 H D (39-117) U/L Total Protein 7.6 D (6.5-8.0) g/dL Albumin 3.8 (3.5-5.0) g/dL Lipase 67 (8-78) U/L Imaging Data CT scan - abdomen: Radiologist's impression: FINDINGS: LUNG BASES: The visualized lung bases are unremarkable.? LIVER, GALLBLADDER, AND BILIARY TREE: The liver is normal in size and shape with decreased attenuation. No focal hepatic lesion or biliary ductal dilatation is present. The gallbladder is unremarkable with no evidence of radiopaque gallstones, gallbladder wall thickening, or obvious pericholecystic inflammatory changes.? PANCREAS: Unremarkable.? SPLEEN: Unremarkable.? ADRENAL GLANDS: Unremarkable.? KIDNEYS AND URETERS: The kidneys are normal in size, shape, and attenuation. No hydronephrosis, hydroureter, or calculi seen. No perinephric stranding. ? BLADDER: Unremarkable.? GASTROINTESTINAL TRACT: The stomach is unremarkable. The proximal small bowel is normal in caliber. Fluid-filled appearance of the more distal small bowel within the pelvis were there is also wall thickening. Small amount of free fluid in this area. Diffuse fatty infiltration of the colonic wall, suggesting chronic inflammatory process. No free air.? ABDOMINAL WALL: No significant hernia is appreciated.? LYMPH NODES: Normal. VASCULAR: Unremarkable. PELVIC VISCERA: The uterus and adnexa are unremarkable.? OSSEOUS STRUCTURES: No acute or suspicious osseous abnormality.? CT/CT abdomen pelvis wo con IMPRESSION: Wall thickening with adjacent inflammation mild prominence of the small bowel within the pelvis, suggestive of enteritis. This does not have an obstructive appearance. Small volume of free fluid. ? Hepatic steatosis.? ? Fleischner guidelines were followed. Discharge Plan Discharge Clinical Impression: Enteritis Patient Disposition: Home, Self-Care Instructions: Acute Diarrhea (ED) Additional Instructions: Please drink plenty of fluids with electrolytes. Please follow-up with your primary care physician tomorrow. If you have any worsening or new symptoms, please return to the emergency room or call 911 Prescriptions: New diphenoxylate-atropine [Lomotil] 2.5-0.025 mg tablet 1 tab PO TID PRN (Reason: diarrhea) Qty: 9 0RF No Action famotidine 20 mg tablet 20 mg PO BID 30 Days Qty: 60 3RF oxycodone [OxyContin] 20 mg Tablet,Oral Only,Ext.Rel.12 Hr 20 mg PO Q12H Qty: 60 0RF Rx Instructions: Partial Fill upon patient request. folic acid 1 mg tablet 1 tab PO DAILY oxycodone 10 mg Tablet 10 mg PO Q8H PRN (Reason: Breakthrough Pain, Moderate) Qty: 60 0RF oxycodone 10 mg Tablet 10 mg PO Q8H PRN (Reason: Breakthrough Pain, Moderate) Qty: 60 0RF Rx Instructions: Partial Fill upon patient request. psyllium Packet 1 packet PO BID Rx Instructions: mix into at least 8 oz of water or juice before administering cyanocobalamin (vitamin B-12) 1,000 mcg Tablet 1,000 mcg PO DAILY ondansetron 8 mg tablet,disintegrating 8 mg PO Q8H PRN (Reason: Nausea And Vomiting) oxycodone [OxyContin] 20 mg tablet,oral only,ext.rel.12 hr 20 mg PO BID
[2022-02-08 03:55] VITALS: RESP 14
[2022-02-08] MEDS: Morphine Sulfate 4 MG/ML CARTRIDGE IVPUSH (03:55)
[2022-02-08] MEDS: ondansetron HCL 4 MG/2 ML VIAL IVPUSH (03:55)
[2022-02-08] MEDS: 0.9 % Sodium Chloride 2,000 ML 999 ML IVCONT (03:56)
== END 2022-02-08 05:03 | disposition home or self-care (01) ==
PROVIDERS: Emergency Provider Emergency Medicine; PCP Internal Medicine
DX: K52.9 Noninfective gastroenteritis and colitis, unspecified (principal)
CPT/HCPCS: 36415; 74176; 80053; 82248; 83690; 85027; 96374; 96375; 99284; J2270; J2405

== ENCOUNTER 2022-02-25 15:46 | Outpatient (REF) | payer OTHER, SELFPAY | END 2022-02-25 15:47 | disposition home or self-care (01) | LOC: HO.LNP 15:46 | PROVIDERS: PCP Internal Medicine; Visit Provider Obstetrics & Gynecology | DX: R87.610 Atypical squamous cells of undetermined significance on cytologic smear of cervix (ASC-US) (principal); R87.810 Cervical high risk human papillomavirus (HPV) DNA test positive | CPT/HCPCS: 57454; 88305 ==

== ENCOUNTER → 2022-03-08 13:54 | Outpatient (BNVA) | payer OTHER, SELFPAY | PROVIDERS: PCP Internal Medicine; Visit Provider Nurse Practitioner Family | DX: K21.9 Gastro-esophageal reflux disease without esophagitis (principal); K62.5 Hemorrhage of anus and rectum; K29.70 Gastritis, unspecified, without bleeding; B96.81 Helicobacter pylori [H. pylori] as the cause of diseases classified elsewhere; R10.84 Generalized abdominal pain; K58.9 Irritable bowel syndrome, unspecified; Z98.890 Other specified postprocedural states | CPT/HCPCS: 99212 ==

== ENCOUNTER 2022-03-09 11:27 | Outpatient (REF) | payer OTHER, SELFPAY ==
[2022-03-09 12:41] LABS: Hematocrit 44.8 % (37.0-47.0); Hemoglobin 14.5 g/dl (12.0-16.0); Mean Corpuscular HGB Conc 32.4 g/dl (31.0-35.0); Mean Corpuscular Hemoglobin 31.7 pg (27.0-33.0); Mean Corpuscular Volume 97.8 fL (80.0-98.0); Mean Platelet Volume 10.3 fL (9.4-12.3); Platelet Count 270 X10*3/uL (160-400); Red Blood Count 4.58 X10*6/uL (4.20-5.50); White Blood Count 5.4 X10*3/uL (4.8-10.8)
[2022-03-09 13:05] LABS: C Reactive Protein 0.12 mg/dL (< or = 0.50)
[2022-03-09 13:29] LABS: TSH reflex Free T4 0.61 uIU/mL (0.32-4.0)
[2022-03-09 13:48] LABS: Folate 18.2 ng/mL (> or = 4.0); Vitamin B12 274 pg/mL (200-900)
[2022-03-14 16:21] LABS: Vitamin D 25-OH, D2 <4 ng/mL; Vitamin D 25-OH, D3 16 ng/mL; Vitamin D 25-OH, Total 16 ng/mL (30-100)
== END 2022-03-09 11:28 | disposition home or self-care (01) ==
LOC: HO.LAB 11:27
PROVIDERS: PCP Internal Medicine; Visit Provider Nurse Practitioner Family
DX: K58.9 Irritable bowel syndrome, unspecified (principal); R19.7 Diarrhea, unspecified; E55.9 Vitamin D deficiency, unspecified; K21.9 Gastro-esophageal reflux disease without esophagitis; K62.5 Hemorrhage of anus and rectum
CPT/HCPCS: 36415; 82306; 82607; 82746; 84443; 85027; 86140

== ENCOUNTER → 2022-03-11 09:54 | Outpatient (BNVA) | payer OTHER, SELFPAY | PROVIDERS: PCP Internal Medicine; Visit Provider Obstetrics & Gynecology | DX: R87.610 Atypical squamous cells of undetermined significance on cytologic smear of cervix (ASC-US) (principal); R87.810 Cervical high risk human papillomavirus (HPV) DNA test positive | CPT/HCPCS: 99212 ==

== ENCOUNTER 2022-04-07 | Outpatient (REF) | payer OTHER, SELFPAY ==
[2022-04-08 13:15] LABS: Leukocytes Stool Qualitative NEGATIVE (NEGATIVE)
== END 2022-04-07 00:01 | disposition home or self-care (01) ==
LOC: HO.LNP
PROVIDERS: Internal Medicine Medical Oncology; Visit Provider Nurse Practitioner Family
DX: R19.7 Diarrhea, unspecified (principal); K21.9 Gastro-esophageal reflux disease without esophagitis
CPT/HCPCS: 87338; 89055

== ENCOUNTER → 2022-04-07 10:18 | Outpatient (BNVA) | payer OTHER, SELFPAY | PROVIDERS: PCP Internal Medicine; Visit Provider Nurse Practitioner Family | DX: Z01.818 Encounter for other preprocedural examination (principal); K21.9 Gastro-esophageal reflux disease without esophagitis; K59.00 Constipation, unspecified; A04.8 Other specified bacterial intestinal infections; R19.7 Diarrhea, unspecified | CPT/HCPCS: 99212 ==

== ENCOUNTER 2022-04-09 10:40 | Emergency (ER) | payer OTHER, SELFPAY | END 2022-04-09 11:15 | disposition left against medical advice (07) | LOC: HO.ED 11:10 | PROVIDERS: Emergency Provider Emergency Medicine; PCP Internal Medicine | DX: R10.9 Unspecified abdominal pain (principal) ==

== ENCOUNTER 2022-04-13 07:01 | Day surgery (SDC) | payer OTHER, SELFPAY ==
--- NOTE | 2022-04-12 12:06 | HO.ANESPROP2 ---
Documented by User: Ana Birch NP 04/12/22 12:07 HPI - Anesthesia Eval Consult details Narrative: 51yo F for Colonoscopy PMFSH Active Problems Active Problems: All Active Problems (Updated 03/29/22 @ 10:10 by Trenton Macdonald MD) H. pylori infection (Acute) ASCUS with positive high risk HPV cervical (Acute) Gastroesophageal reflux disease (Acute) Left ovarian cyst (Acute) Tubular adenoma (Acute) Adenocarcinoma of rectum (Acute) Rectal cancer (Acute) Chronic pain syndrome (Acute) Sacroiliitis (Acute) Lumbar back pain with radiculopathy affecting left lower extremity (Acute) Past Medical History Medical History Adenocarcinoma of rectum Chronic pain syndrome H. pylori infection Hx of gastroesophageal reflux (GERD) Lumbar back pain with radiculopathy affecting left lower extremity Rectal cancer Sacroiliitis Tubular adenoma Family History Family History Mother Diabetes HTN (hypertension) Father Diabetes Heart attack Brother Diabetes Heart problem HTN (hypertension) Maternal Aunt Breast cancer Sister Uterus cancer Maternal Aunt Breast cancer Mother Lung cancer Family history of problems with anesthesia: No Surgical History Surgical History H/O tubal ligation History of bursectomy History of esophagogastroduodenoscopy (EGD) History of nasal polypectomy History of reversal of ileostomy Hx of colonoscopy Hx of hemorrhoidectomy Hx of ileostomy S/P anal fissurectomy History of Problems with Anesthesia: No Social History Social History Household Members: Spouse Housing: House Are you a primary neurocritical care physician to a significant other at home: No Do you presently have visiting nurse or other home services: No Alcohol intake: never Patient Tobacco Use Status: Former Tobacco user Quit Date: 2020 Are you DNR?: No Advance Directives: No Advance Directives Information Provided: Yes Nutrition Risks: No Nutritional Risk service: No Current occupational status: unemployed Meds Allergies Allergy/AdvReac Type Severity Reaction Status Date / Time gabapentin AdvReac Unknown dizziness, Verified 04/07/22 10:29 lightheadedness ibuprofen AdvReac Unknown nausea and Verified 04/07/22 10:29 vomiting Home Medications Medication Instructions Recorded Confirmed Last Taken Type folic acid 1 mg tablet 1 tab PO DAILY 10/08/21 04/13/22 01/09/22 History cyanocobalamin (vitamin B-12) 1,000 mcg PO DAILY 01/10/22 04/13/22 01/09/22 History 1,000 mcg tablet ondansetron 8 mg disintegrating 8 mg PO Q8H PRN Nausea And Vomiting 01/10/22 04/13/22 01/09/22 History tablet Exam Exam Date and Time: April 12, 2022 1206 Pertinent Lab Results Pertinent Lab Results: Laboratory Tests 03/29/22 03/29/22 10:32 10:32 WBC 4.3 L Hgb 13.9 Hct 42.1 Plt Count 336 Sodium 143 Potassium 4.5 Chloride 100 Carbon Dioxide 30 H BUN 6 L Creatinine 0.82 Assessment and Plan Assessment Anesthesia Assessment: Chart Reviewed Final Anesthetic Review Family History of Problems with Anesthesia: No History of Problems with Anesthesia: No Documented by User: Marion Wolf MD 04/13/22 08:26 [facility] Past Medical History Medical History Adenocarcinoma of rectum Chronic pain syndrome H. pylori infection Hx of gastroesophageal reflux (GERD) Lumbar back pain with radiculopathy affecting left lower extremity Rectal cancer Sacroiliitis Tubular adenoma Family History Family History Mother Diabetes HTN (hypertension) Father Diabetes Heart attack Brother Diabetes Heart problem HTN (hypertension) Maternal Aunt Breast cancer Sister Uterus cancer Maternal Aunt Breast cancer Mother Lung cancer Surgical History Surgical History H/O tubal ligation History of bursectomy History of esophagogastroduodenoscopy (EGD) History of nasal polypectomy History of reversal of ileostomy Hx of colonoscopy Hx of hemorrhoidectomy Hx of ileostomy S/P anal fissurectomy Social History Social History Household Members: Spouse Housing: House Are you a primary neurocritical care physician to a significant other at home: No Do you presently have visiting nurse or other home services: No Alcohol intake: never Patient Tobacco Use Status: Former Tobacco user Quit Date: 2020 Are you DNR?: No Advance Directives: No Advance Directives Information Provided: Yes Nutrition Risks: No Nutritional Risk service: No Current occupational status: unemployed Meds Allergies Allergy/AdvReac Type Severity Reaction Status Date / Time gabapentin AdvReac Unknown dizziness, Verified 04/07/22 10:29 lightheadedness ibuprofen AdvReac Unknown nausea and Verified 04/07/22 10:29 vomiting Home Medications Medication Instructions Recorded Confirmed Last Taken Type folic acid 1 mg tablet 1 tab PO DAILY 10/08/21 04/13/22 01/09/22 History cyanocobalamin (vitamin B-12) 1,000 mcg PO DAILY 01/10/22 04/13/22 01/09/22 History 1,000 mcg tablet ondansetron 8 mg disintegrating 8 mg PO Q8H PRN Nausea And Vomiting 01/10/22 04/13/22 01/09/22 History tablet Exam Airway Mallampati Class: II TM Dist: >3cm Assessment and Plan Assessment Anesthesia Assessment: Anesthesia Plan Discussed Final Anesthetic Review NPO: Yes ASA Class: II Final Preanesthetic Review: No Changes in Pt Med Stat, Meds/Allgs Chart Reviewed, Consent Obtained/Reviewed and Anes Risks/Benef Reviewed Patient Risk: Low Procedure Risk: Low Anesthetic Plan Anesthetic Plan: MAC: Disposition: Standard PACU
[2022-04-13] VITALS (8 sets, daily range): BP systolic 109–125; BP diastolic 68–86; PULSE 55–81; RESP 12–18; TEMP 36.4–36.9; O2SAT 98–100; BMI 19.4
[2022-04-13] MEDS: Lactated Ringers 1,000 ML 100 ML IVCONT (07:25)
--- NOTE | 2022-04-13 08:25 | MHC.SHP ---
Pre-Procedural Eval Section A Date of Service: 04/13/22 Section B Chief Complaint: Personal history of other malignant neoplasm of re Details of Present Illness: hx of rectal cancer, low resection with stoma and reversal Relevant Family History (Specify if Yes): Yes Relevant Social History: None Present Medications: see Short Stay Collaborative assessment Medical History: Significant History (Adenocarcinoma of rectum Chronic pain syndrome H. pylori infection Hx of gastroesophageal reflux (GERD) Lumbar back pain with radiculopathy affecting left lower extremity Rectal cancer Sacroiliitis Tubular adenoma) History of Previous Operations: Relevant previous surgery/procedure and date(s) (H/O tubal ligation History of bursectomy History of esophagogastroduodenoscopy (EGD) History of nasal polypectomy History of reversal of ileostomy Hx of colonoscopy Hx of hemorrhoidectomy Hx of ileostomy S/P anal fissurectomy) Allergies: Allergies Allergy/AdvReac Type Severity Reaction Status Date / Time gabapentin AdvReac Unknown dizziness, Verified 04/07/22 10:29 lightheadedness ibuprofen AdvReac Unknown nausea and Verified 04/07/22 10:29 vomiting Review of Systems Sugical H&P ROS: Negative: Constitution, Cardiovascular, Respiratory, Neurological, Psychiatric, Hem-Onc, Allergic/Immunologic, Gastrointestinal, Genitourinary, Musculoskeletal, Integumentary, Endocrine and Eyes/Ears/Nose/Throat Exam Surgical H&P Exam: Normal: HEENT, Normal: Heart, Normal: Lungs, Normal: Extremities, Normal: Abdomen, Normal: Skin and Normal: Neurological Plan Diagnosis/Plan: Unchanged I have reviewed the history and physical and performed a pertinent physical examination on my patient. No changes have occurred unless specified.
--- NOTE | 2022-04-13 09:07 | W.PM.OPN ---
Operative Note Operative Note Date of Service: 04/13/22 Narrative: Operative Information Procedure Description: Colonoscopy Indication: hx of rectal cancer Anesthesia: MAC COLONOSCOPY Instrument: Olympus variable stiffness pediatric scope 190L Colonoscopy Monitoring: Vital signs and clinical assessment, continuous EKG monitoring, Pulse oximetry, Carbon Dioxide monitoring and blood pressure monitoring were done throughout the procedure. Colon withdrawal time was 10 minutes. Procedure: The patient was placed in the left lateral decubitis position and pre-procedure medications were administered. After a digital rectal examination of the ano-rectum, the video colonoscope was inserted into the rectum and advanced through the colon to the cecum/TI. The colonoscope was slowly withdrawn in a retrograde panoramic fashion and the colon mucosa was carefully examined including a retroflexed view of the rectum. Findings and interventions are described below. 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 1 = Portion of mucosa of the colon segment seen, but other areas of the colon segment not well seen due to staining, residual stool and/or opaque liquid. 2 = Minor amount of residual staining, small fragments of stool and/or opaque liquid, but mucosa of colon segment seen well. 3 = Entire mucosa of colon segment seen well with no residual staining, small fragments of stool or opaque liquid) Impression and Post Procedure Diagnosis: radiation colopathy diverticulosis colon polyp Plan: High fiber diet leaflet Avoid straining at stool, epsom salts and sitz bath, anusol supps or cream Repeat Colonoscopy in 1-2 years or earlier if clinically indicated Above findings were reviewed with the patient and relevant handouts were provided if indicated.
[2022-04-13] MEDS: ondansetron HCL 4 MG/2 ML VIAL IVPUSH (09:39)
[2022-04-13] MEDS: fentaNYL citrate/PF 100 MCG/2 ML VIAL 25 MCG IVPUSH (09:42)
[2022-04-13] MEDS: oxyCODONE HCl Immed Release 5 MG TABLET PO (09:52)
[2022-04-13] MEDS: Loperamide HCl Oral Liquid 2 MG/15 ML LIQUID 1 MG PO (09:53)
== END 2022-04-13 10:51 | disposition home or self-care (01) ==
PROVIDERS: PCP Internal Medicine; Visit Provider Internal Medicine Gastroenterology
PROC: 0DJD8ZZ Inspection of Lower Intestinal Tract, Via Natural or Artificial Opening Endoscopic (ICD-10-PCS; CPT 45378; principal; 2022-04-13 08:20)
DX: Z12.11 Encounter for screening for malignant neoplasm of colon (principal); Z85.048 Personal history of other malignant neoplasm of rectum, rectosigmoid junction, and anus; Z90.49 Acquired absence of other specified parts of digestive tract; G89.4 Chronic pain syndrome; D12.3 Benign neoplasm of transverse colon; K52.9 Noninfective gastroenteritis and colitis, unspecified; Z86.19 Personal history of other infectious and parasitic diseases; K57.30 Diverticulosis of large intestine without perforation or abscess without bleeding; K62.7 Radiation proctitis; I78.1 Nevus, non-neoplastic; R19.2 Visible peristalsis; M46.1 Sacroiliitis, not elsewhere classified; K21.9 Gastro-esophageal reflux disease without esophagitis; Z79.899 Other long term (current) drug therapy; Z88.8 Allergy status to other drugs, medicaments and biological substances; Z87.891 Personal history of nicotine dependence
CPT/HCPCS: 45385; 45380; 88305; J2405; J3010

== ENCOUNTER → 2022-04-19 10:15 | Outpatient (BNVA) | payer OTHER, SELFPAY | PROVIDERS: PCP Internal Medicine; Visit Provider Anesthesiology | DX: C18.9 Malignant neoplasm of colon, unspecified (principal); C20 Malignant neoplasm of rectum; G58.9 Mononeuropathy, unspecified | CPT/HCPCS: 99212 ==

== ENCOUNTER 2022-05-03 18:19 | Outpatient (REF) | payer OTHER, SELFPAY ==
[2022-05-03 19:02] LABS: Amphetamine Screen Urine Not Detected (Not Detect); Barbiturates, Urine Not Detected (Not Detect); Benzodiazepines Screen Urine Not Detected (Not Detect); Cannabinoid Screen Urine Not Detected (Not Detect); Cocaine Screen Urine Not Detected (Not Detect); Fentanyl, urine POSITIVE (Not Detect); Opiate Screen Urine POSITIVE (Not Detect); Phencyclidine Screen Urine Not Detected (Not Detect)
[2022-05-10 09:42] LABS: Oxycodone, Ur >10000
[2022-05-10 09:43] LABS: Noroxycodone, Ur >10000; Oxymorphone, Ur 244
[2022-05-10 09:44] LABS: Codeine, Ur NEGATIVE; Hydrocodone, Ur NEGATIVE; Hydromorphone, Ur NEGATIVE; Morphine, Ur NEGATIVE; Norhydrocodone, Ur NEGATIVE
== END 2022-05-03 18:20 | disposition home or self-care (01) ==
LOC: HO.LAB 18:19
PROVIDERS: Visit Provider Internal Medicine
DX: G89.4 Chronic pain syndrome (principal); Z91.89 Other specified personal risk factors, not elsewhere classified
CPT/HCPCS: 80307; 80364; 80365

== ENCOUNTER 2022-06-04 08:01 | Outpatient (REF) | payer OTHER, SELFPAY ==
--- NOTE | ~2022-06-04 | MR_ITS ---
EXAMINATION: MR ABDOMEN WITHOUT AND WITH CONTRAST CLINICAL INFORMATION: Left renal mass seen on outside exam. History of colon cancer. COMPARISON: Previous CT of the abdomen and pelvis most recent January 2022 TECHNIQUE: MR abdomen was performed without and with use of 5 mL intravenous Gadavist gadolinium contrast. Postcontrast images are performed in multiphase dynamic sequences. Imaging was performed in 3 planes. FINDINGS: LUNG BASES: The visualized lung bases are unremarkable. LIVER, GALLBLADDER, AND BILIARY TREE: The liver is normal in size and contour. There is slight slight signal loss in the liver on out of phase sequences suggestive of mild fatty infiltration. No focal liver lesion. Normal gallbladder. No biliary duct dilatation. PANCREAS: Unremarkable. SPLEEN: Normal. ADRENAL GLANDS: Normal. KIDNEYS AND URETERS: The kidneys are normal in size, and shape. There is a small cyst in the upper pole of the right kidney. The kidneys are otherwise normal. No renal mass. No hydronephrosis. No perinephric stranding. GASTROINTESTINAL TRACT: There is question of changes of old colitis in the proximal colon with mild wall thickening ahaustral appearance of fatty infiltration of wall cecum, right colon and proximal transverse colon. No bowel obstruction. No ascites or fluid collection. ABDOMINAL WALL: No significant hernia is appreciated. LYMPH NODES: No lymphadenopathy. VASCULAR: Unremarkable. OSSEOUS STRUCTURES: Degenerative disc disease. Bone marrow signal is otherwise normal. MR/MR abdomen wo/w con IMPRESSION: No left renal mass seen. Small right renal cyst. Mild fatty infiltration of the liver. Question changes from old colitis in the proximal colon.
== END 2022-06-04 08:02 | disposition home or self-care (01) ==
LOC: HO.MRI 08:01
PROVIDERS: Visit Provider Internal Medicine Medical Oncology
DX: N28.89 Other specified disorders of kidney and ureter (principal)
CPT/HCPCS: 74183; A9585

== ENCOUNTER 2022-06-23 08:09 | Emergency (ER) | payer OTHER, SELFPAY ==
--- NOTE | ~2022-06-23 | XR_ITS ---
EXAMINATION: XR LUMBOSACRAL SPINE CLINICAL INFORMATION: Low back pain. History of colon cancer. COMPARISON: Lumbar spine MRI from 2019 TECHNIQUE: Three views of the lumbosacral spine. FINDINGS: There is mild curvature of the lumbar sacral spine to the right. Bone alignment is otherwise normal. No fracture or dislocation. There is mild degenerative spondylosis at L4-L5. Disc spaces are normal. XR/XR lumbar spine 2-3V IMPRESSION: Mild curvature of the lumbar sacral spine to the right and spondylosis at L4-L5.
[2022-06-23 08:12] VITALS: BP 136/86; PULSE 100; RESP 16; TEMP 36.7; O2SAT 100; BMI 19.8
--- NOTE | 2022-06-23 09:10 | ED_ITS ---
HPI - General Adult General Chief complaint: Back Pain/Injury Stated complaint: lower back pain, no inj Time Seen by Provider: 06/23/22 09:10 Source: patient Mode of arrival: ambulatory Limitations: no limitations History of Present Illness HPI narrative: Patient is a 51 year old assigned female at with a history of chronic low back pain and colon cancer presenting to the emergency department today with low back pain. Patient states that she was moving boxes 4 days ago when she felt a pop in her back and having pain. Patient states that the pain is more right sided. Patient states that she has an appointment on 06/29/2022 for localized injections in her back but she keeps having spasms that hurt. Patient denies any dizziness, lightheadedness, abdominal pain, nausea, vomiting, fever, chills, blurry vision, double vision, loss of vision, chest pain, difficulty breathing, shortness of breath, night sweats, pain with urination, increased urinary frequency, increased urinary urgency, blood in her urine or stool, syncope or a near syncopal episode, recent trauma or falls, bowel incontinence, bladder incontinence, bowel retention, bladder retention, or any other complaints at this time. Onset (ago): day(s) (4) Location: back Radiation: extremity and distal Severity: mild Severity scale (1-10): 3 Quality: aching and dull Pain Consistency: intermittent Relieving factors: none Exacerbating factors: movement Associated symptoms: denies other symptoms Treatments prior to arrival: none Related Data Home Medications Medication Instructions Recorded Confirmed folic acid 1 mg tablet 1 tab PO DAILY 10/08/21 06/09/22 cyanocobalamin (vitamin B-12) 1,000 mcg PO DAILY 01/10/22 06/09/22 1,000 mcg tablet ondansetron 8 mg disintegrating 8 mg PO Q8H PRN Nausea And Vomiting 01/10/22 06/09/22 tablet hydroxyzine HCl 25 mg tablet 25 mg PO BID PRN anxiety 05/10/22 06/09/22 Previous Rx's Medication Instructions Recorded omeprazole 20 mg capsule,delayed 20 mg PO DAILY #30 caps 03/10/22 release cholecalciferol (vitamin D3) 50 50 mcg PO DAILY #30 caps 03/15/22 mcg (2,000 unit) capsule methylcellulose (laxative) 500 mg 500 mg PO DAILY #90 tabs 04/07/22 tablet (Citrucel) oxycodone 5 mg tablet 5 mg PO Q8H PRN Breakthrough Pain, 06/22/22 Severe #30 tabs cyclobenzaprine 5 mg tablet 5 mg PO TID PRN muscle spasm 7 06/23/22 days #21 tabs Allergies Allergy/AdvReac Type Severity Reaction Status Date / Time gabapentin AdvReac Unknown dizziness, Verified 06/09/22 13:00 lightheadedness ibuprofen AdvReac Unknown nausea and Verified 06/09/22 13:00 vomiting Review of Systems Constitutional: Constitutional: Reports no additional constitutional com plaints, Denies chills, Denies fever(s) and Denies night sweats Eyes: Eyes: Reports no additional eye complaints, Denies blurry vision, Denies change in vision, Denies diplopia, Denies eye discharge, Denies loss of vision and Denies eye pain ENT: Denies dizziness Cardiovascular: Cardiovascular: Reports no additional cardiovascular complaints, Denies chest pain, Denies lightheadedness, Denies Loss of Consciousness and Denies dyspnea Respiratory: Respiratory: Reports no additional respiratory complaints and Denies dyspnea Gastrointestinal: Gastrointestinal: Reports no additional gastrointestinal complaints, Denies abdominal pain, Denies melena, Denies hematochezia, Denies change in bowel habits and Denies change in stool character Genitourinary: Genitourinary: Denies hematuria, Denies urinary frequency, Denies dysuria, Denies urinary incontinence, Denies urinary hesitancy and Denies urinary urgency Musculoskeletal: Musculoskeletal: Reports no additional musculoskeletal complaints, Reports back pain, Denies numbness and Denies tingling Neurologic: Denies dizziness, Denies loss of vision, Denies numbness and Denies tingling Psychiatric: Psychiatric: Reports no additional psychiatric complaints Endocrine: Endocrine: Reports no additional endocrine complaints Hematologic/Lymphatic: Hematologic/Lymphatic: Reports no additional hematologic/lymphatic complaints Allergic/Immunologic: Allergic/Immunologic: Reports no additional allergic/immunologic complaints PMFSH Past Medical History Attestation statement: The following information was validated with the patient. Source: old records reviewed and nursing notes reviewed Medical History Adenocarcinoma of rectum Chronic pain syndrome H. pylori infection Hx of gastroesophageal reflux (GERD) Lumbar back pain with radiculopathy affecting left lower extremity Rectal cancer Sacroiliitis Tubular adenoma Vitamin D deficiency Surgical History H/O tubal ligation History of bursectomy History of esophagogastroduodenoscopy (EGD) History of low anterior resection of rectum (~07/31/21) History of nasal polypectomy History of reversal of ileostomy (~01/08/22) Hx of colonoscopy Hx of hemorrhoidectomy Hx of ileostomy S/P anal fissurectomy Family History Family History Mother Diabetes HTN (hypertension) Father Diabetes Heart attack Brother Diabetes Heart problem HTN (hypertension) Maternal Aunt Breast cancer Sister Uterus cancer Maternal Aunt Breast cancer Mother Lung cancer Social History Social History Household Members: Spouse Housing: House Are you a primary landcare officer to a significant other at home: No Do you presently have visiting nurse or other home services: No Alcohol intake: never Patient Tobacco Use Status: Former Tobacco user Quit Date: 2020 Advance Directives: No Advance Directives Information Provided: No service: No Current occupational status: unemployed Cognitive needs: No Hearing needs: No Vision needs: No Physical Exam ED Vital Signs: Vital Signs - 24 hr 06/23/22 08:12 06/23/22 09:39 Temperature 98.1 F 98.0 F Pulse Rate 100 52 Respiratory Rate 16 16 Blood Pressure 136/86 130/67 Pulse Oximetry 100 100 Oxygen Delivery Method Room Air Room Air BMI result Body Mass Index 19.8 Const General: cooperative, no acute distress, alert and awake Nutritional Appearance: well nourished Orientation/consciousness: patient oriented x3 Limitations: no limitations [facility] Head: Yes normal to inspection and Yes atraumatic Ears: hearing grossly normal bilaterally and external ears normal General nose exam: Normal external nose present, no nasal discharge noted and no epistaxis Face and sinus: Yes normal facial exam, No abrasion and No laceration Mouth: Normal oral and palatal mucosa present, no drooling and no muffled voice Eyes General: appearance normal, both eyes and all related structures Periorbital: periorbital findings normal Eyelids: Yes eyelids normal Conjunctivae: conjunctivae normal Pupils: Equal, round and reactive pupils present EOM: EOMs intact bilaterally Neck Neck: Yes normal visual inspection, Yes full ROM and Yes no lymphadenopathy Chest Chest palpation & inspection: normal inspection of the chest Resp Effort & Inspection: normal respiratory effort and able to speak in complete sentences Auscultation: clear to auscultation bilaterally Cardio Rate: regular rate Rhythm: regular rhythm GI Inspection: Yes normal to inspection General: Yes no CVA tenderness Back/Spine/Pelvis Back: no CVA tenderness Cervical Spine: normal cervical lordosis and cervical ROM normal Thoracic/Lumbar Spine: thoracic and lumbar spine normal to inspection and thoraco-lumbar ROM normal Pelvis: no pain with anterior-posterior compression Neuro General: patient oriented x3 and moves all extremities Cranial nerves: Yes Equal, round and reactive pupils present Cognition (Neuro): normal cognition Motor exam (neuro): 5/5 motor strength present throughout Sensory Exam: Normal double simultaneous stimulation for sensation Coordination: [id number] test normal Extrem General: Yes normal to inspection, Yes full ROM and Yes capillary refill normal Psych Appearance: grossly normal Mental Status: mental status grossly normal Affect: normal affect Attitude: cooperative Thought process: Normal thought process present Thought content: Normal thought content present Insight: Good insight present (Psych) Medications Administered Discontinued Medications Generic Name Dose Route Start Last Admin Trade Name Freq PRN Reason Stop Dose Admin Cyclobenzaprine HCl 5 mg 06/23/22 09:20 06/23/22 09:33 Cyclobenzaprine Hcl 5 Mg Tablet PO 06/23/22 09:21 5 mg ONCE ONE Administration Ketorolac Tromethamine 15 mg 06/23/22 09:20 06/23/22 09:32 Ketorolac Tromethamine 15 Mg/Ml Vial IM 06/23/22 09:21 15 mg ONCE ONE Administration Medical Decision Making Medical Decision Making [facility] Narrative: Patient is a 51 year old assigned female at with a history of chronic back pain and colon cancer presenting to the emergency department today with low back pain. Patient's physical exam was unremarkable. Patient's lumbar spine x- ray showed no acute process. I explained my physical exam findings as well as all test results to the patient. I answered all questions asked by the patient. Patient received IM Toradol and PO Flexeril which she stated helped her pain significantly. I stressed the importance of the patient taking her medication as prescribed. I stressed the importance of the patient following up with her primary care provider and her affirmative action specialist as scheduled on 06/29/2022. I stressed the importance of the patient returning to the emergency department immediately if her symptoms were to worsen or if she were to develop any dizziness, shortness of breath, difficulty breathing, chest pain, blurry vision, loss of vision, nausea, vomiting, abdominal pain, fever, chills, back pain, or any other complaints. Patient verbalized agreement and understanding with this treatment plan and discharge. Differential Diagnosis Differential Diagnoses: The differential diagnosis associated with the presentation includes acute on chronic low back pain, sciatic nerve pain, low back pain Radiology Impression Discussion of test interpretation with radiology: I have reviewed the radiologist's reading. Radiologist Impression: EXAMINATION: XR LUMBOSACRAL SPINE CLINICAL INFORMATION: Low back pain. History of colon cancer. COMPARISON: Lumbar spine MRI from 2019 TECHNIQUE: Three views of the lumbosacral spine. FINDINGS: There is mild curvature of the lumbar sacral spine to the right. Bone alignment is otherwise normal. No fracture or dislocation. There is mild degenerative spondylosis at L4-L5. Disc spaces are normal. XR/XR lumbar spine 2-3V IMPRESSION: Mild curvature of the lumbar sacral spine to the right and spondylosis at L4-L5. Dictated By: Shannon Rodriguez MD Signed By: Electronically signed by Shannon Rodriguez MD 06/23/22 [id number] I, physician campus administrative assistant Sumi Chung, examined the image and agree with the radiologist's interpretation. Discharge Plan Discharge Clinical Impression: Low back pain Patient Disposition: Home, Self-Care Instructions: Chronic Back Pain (DC) Additional Instructions: Follow up with your primary care provider and your affirmative action specialist as scheduled on 06/29/2022. Return to the emergency department immediately if your symptoms worsen or if you develop any dizziness, shortness of breath, difficulty breathing, chest pain, blurry vision, loss of vision, nausea, vomiting, abdominal pain, fever, chills, back pain, or any other complaints. Prescriptions: New cyclobenzaprine 5 mg tablet 5 mg PO TID PRN (Reason: muscle spasm) 7 Days Qty: 21 0RF No Action cholecalciferol (vitamin D3) 50 mcg (2,000 unit) capsule 50 mcg PO DAILY Qty: 30 3RF oxycodone 5 mg tablet 5 mg PO Q8H PRN (Reason: Breakthrough Pain, Severe) Qty: 30 0RF Rx Instructions: Partial Fill upon patient request. folic acid 1 mg tablet 1 tab PO DAILY cyanocobalamin (vitamin B-12) 1,000 mcg Tablet 1,000 mcg PO DAILY ondansetron 8 mg tablet,disintegrating 8 mg PO Q8H PRN (Reason: Nausea And Vomiting) hydroxyzine HCl 25 mg tablet 25 mg PO BID PRN (Reason: anxiety) omeprazole 20 mg capsule,delayed release(DR/EC) 20 mg PO DAILY Qty: 30 4RF Citrucel 500 mg tablet 500 mg PO DAILY Qty: 90 2RF Rx Instructions: take it with full glass of water Referrals: Ky Lin MD [Primary Care Provider] - Stand Alone Forms: Work/School Release Interventions: ED Discharge Assessment Last Done: 06/23/22 10:08 Discharge Date/Time: 06/23/22 10:09 Print Language: Taiwanese
[2022-06-23] MEDS: Ketorolac Tromethamine 15 MG/ML VIAL IM (09:32)
[2022-06-23] MEDS: Cyclobenzaprine HCl 5 MG TABLET PO (09:33)
[2022-06-23 09:39] VITALS: BP 130/67; PULSE 52; RESP 16; TEMP 36.7; O2SAT 100
== END 2022-06-23 10:09 | disposition home or self-care (01) ==
PROVIDERS: Emergency Provider Student in an Organized Health Care Education/Training Program; PCP Internal Medicine
DX: M54.50 Low back pain, unspecified (principal); Z87.891 Personal history of nicotine dependence; Z79.899 Other long term (current) drug therapy
CPT/HCPCS: 72100; 96372; 99284; J1885

== ENCOUNTER 2022-06-25 08:49 | Day surgery (SDC) | payer OTHER, SELFPAY ==
--- NOTE | ~2022-06-25 | IR_ITS ---
PROCEDURE: PORT REMOVAL CLINICAL INFORMATION: Rectal cancer. Port no longer needed. COMPARISON: None TECHNIQUE/FINDINGS:: Procedure and risks and benefits including bleeding and infection were discussed with the patient and informed consent was obtained. All elements of maximal sterile barrier technique followed including use of cap, mask, sterile gown, sterile gloves, a sterile full body drape and hand hygiene. Also followed skin preparation with 2% chlorhexidine for cutaneous antisepsis, and sterile ultrasound preparation with sterile gel and probe cover when applicable. The right chest was prepped and draped in the usual sterile fashion. The skin and soft tissues were anesthetized with 1% lidocaine plain. A small incision was made over the port. Using blunt dissection, the catheter and port were removed. The incision was closed using four 3-0 absorbable interrupted sutures followed by a running 4-0 absorbable subcuticular suture. Conscious sedation provided with continuous hemodynamic monitoring performed by a nurse under my direct supervision. [id number] contact time 20 minutes. Patient received Versed 1.5 mg and fentanyl 75 mcg IV during the procedure. No fluoroscopic images. IR/IR cvc remove tunnel w prt/formula maker IMPRESSION: Right internal jugular Port-A-Cath removal.
[2022-06-25 09:05] VITALS: BMI 20.7
[2022-06-25 09:23] LABS: MANUAL DIFF FLAG NO
[2022-06-25 09:27] LABS: Basophils Percent Auto 0.6 % (0-2); Eosinophils Absolute Auto 0.1 X10*3/uL (0.0-0.4); Eosinophils Percent Auto 2.6 % (0-4); Hematocrit 36.3 % (37.0-47.0); Hemoglobin 11.9 g/dl (12.0-16.0); Imm Gran Abs Auto 0.01 X10*3/uL (0.00-0.03); Imm Gran Pct Auto 0.3 % (0.0-0.4); Lymphocytes Absolute Auto 1.4 X10*3/uL (1.2-4.9); Lymphocytes Percent Auto 41.6 % (20-40); Mean Corpuscular HGB Conc 32.8 g/dl (31.0-35.0); Mean Corpuscular Hemoglobin 33.7 pg (27.0-33.0); Mean Corpuscular Volume 102.8 fL (80.0-98.0); Monocytes Absolute Auto 0.4 X10*3/uL (0.1-1.2); Monocytes Percent Auto 11.9 % (2-11); Neutrophils Absolute Auto 1.5 x10*3/uL (2.0-8.3); Platelet Count 187 X10*3/uL (160-400); Red Blood Count 3.53 X10*6/uL (4.20-5.50); Red Cell Distribution Width 12.5 % (11.0-16.0); White Blood Count 3.4 X10*3/uL (4.8-10.8)
[2022-06-25 09:35] LABS: Prothrombin Time 11.4 SEC (10.0-13.1)
[2022-06-25 09:38] LABS: Partial Thromboplastin Time 29.5 SEC (26.0-36.4)
[2022-06-25 10:02] LABS: Anion Gap 13 (12-20); Blood Urea Nitrogen 6 mg/dL (9-16); Carbon Dioxide 28 mmol/L (22-29); Chloride 106 mmol/L (96-108); Creatinine Clr Calc Pharmacy 66.1; Estimated Glomerular Filt Rate > 60; Potassium 4.6 mmol/L (3.3-5.1); Sodium 142 mmol/L (135-145)
[2022-06-25 13:50] VITALS: BP 102/55; PULSE 76; RESP 16; TEMP 36.8; O2SAT 98
[2022-06-25 14:05] VITALS: BP 102/54; PULSE 94; RESP 16; O2SAT 100
[2022-06-25 14:20] VITALS: BP 96/57; PULSE 83; RESP 17; O2SAT 100
--- NOTE | 2022-06-25 14:26 | P.RADPN_ITS ---
RADIOLOGY Narrative Narrative: RIJ port removed.
--- NOTE | 2022-06-25 14:26 | HO.RADPN ---
RADIOLOGY Narrative Narrative: RIJ port removed.
[2022-06-25 14:50] VITALS: BP 113/70; PULSE 89; RESP 18; TEMP 37.7; O2SAT 97
== END 2022-06-25 15:00 | disposition home or self-care (01) ==
LOC: HO.SSS 08:50
PROVIDERS: Radiology Diagnostic Radiology; PCP Internal Medicine; Visit Provider Radiology Diagnostic Radiology
PROC: (CPT 36590; principal; 2022-06-25 10:30)
DX: Z45.2 Encounter for adjustment and management of vascular access device (principal); C20 Malignant neoplasm of rectum; G89.4 Chronic pain syndrome; M54.16 Radiculopathy, lumbar region; M46.1 Sacroiliitis, not elsewhere classified; Z79.899 Other long term (current) drug therapy; Z88.8 Allergy status to other drugs, medicaments and biological substances; Z98.890 Other specified postprocedural states
CPT/HCPCS: 36415; 36590; 80051; 82565; 84520; 85025; 85610; 85730; 99152; J2250; J3010

== ENCOUNTER 2022-06-29 06:00 | Outpatient (REF) | payer OTHER, SELFPAY | END 2022-06-29 06:01 | disposition home or self-care (01) | LOC: CF 06:00 | PROVIDERS: Visit Provider Anesthesiology | DX: Z13.89 Encounter for screening for other disorder (principal) | CPT/HCPCS: J2795; Q9965; Q9967 ==

== ENCOUNTER 2022-08-15 07:03 | Emergency (ER) | payer OTHER, SELFPAY ==
--- NOTE | ~2022-08-15 | CT_ITS ---
EXAMINATION: CT ABDOMEN AND PELVIS WITH CONTRAST CLINICAL INFORMATION: Left lower quadrant pain and diarrhea. History of colon cancer. COMPARISON: February 08, 2022 TECHNIQUE: Multidetector volumetric images were obtained from the superior aspect of the liver through the pubic symphysis following administration 85 mL of Omnipaque 350 intravenous contrast. Sagittal and coronal reformatted images were obtained on the technologist's workstation. Oral contrast: No This CT examination was performed using dose optimization techniques as appropriate, variously including the following: *Automated exposure control *Adjustment of mA and/or kV according to patient size (this includes techniques or standardized protocols for targeted exams where dose is matched to indication/reason for exam; i.e. extremities or head) *Use of iterative reconstruction technique DLP: 280 mGy-cm FINDINGS: LUNG BASES: There is a 1.5 x 1.3 cm left lower lobe noncalcified mass seen on image 40 of 683. This is suspicious for malignancy and PET/CT would be of help in further evaluation of this finding as well as other possible metastatic lesions. No pleural or pericardial effusion is identified. LIVER, GALLBLADDER, AND BILIARY TREE: The liver is normal in size, shape, and attenuation. No focal hepatic lesion or biliary ductal dilatation is present. The gallbladder is unremarkable with no evidence of radiopaque gallstones, gallbladder wall thickening, or obvious pericholecystic inflammatory changes. PANCREAS: Unremarkable. No abnormal mass or peripancreatic inflammatory change. SPLEEN: Unremarkable. ADRENAL GLANDS: Unremarkable. KIDNEYS AND URETERS: Right kidney: There is a 5 mm low-density lesion seen within the upper pole which was seen on previous MRI of June 04, 2022 representing a cyst. No suspicious solid mass identified. No hydronephrosis. No renal calculi. Right ureter appears unremarkable. Left kidney: No abnormal mass, calcification, or hydronephrosis. Ureter appears unremarkable. BLADDER: Unremarkable. GASTROINTESTINAL TRACT: No free air or free fluid identified. Within the proximal jejunum there are a few loops of distended small bowel with question wall thickening. No definite adjacent fat streaking or fluid present. A jejunal lesion within the mid left abdomen is not excluded where there are multiple adjacent loops of bowel. The remainder of the small bowel appears unremarkable. Patient is status post previous right colon surgery. No pericolonic inflammatory changes seen. ABDOMINAL WALL: No significant hernia is appreciated. LYMPH NODES: No lymphadenopathy appreciated. VASCULAR: Unremarkable. PELVIC VISCERA: No abnormal mass appreciated. OSSEOUS STRUCTURES: No destructive bony lesion identified. CT/CT abdomen pelvis w IV con IMPRESSION: 1.5 cm left lower lobe lung mass suspicious for possible metastasis. Complete CT of the chest versus PET/CT would be of help in further evaluation. Question distention with some bowel wall thickening within loops of jejunum as described. No evidence of acute diverticulitis. Fleischner guidelines were followed.
[2022-08-15 07:05] VITALS: BP 129/87; PULSE 86; RESP 18; TEMP 36.6; O2SAT 100; BMI 21.3
[2022-08-15 08:02] LABS: Influenza A PCR NEGATIVE (Negative); Influenza B PCR NEGATIVE (Negative); Resp Syncy Virus RNA Qual PCR NEGATIVE (Negative); SARS COV2 PCR INHOUSE NEGATIVE (Negative)
--- NOTE | 2022-08-15 08:25 | ED_ITS ---
HPI - General Adult General Chief complaint: General Medical Stated complaint: body aches, n/v/d Time Seen by Provider: 08/15/22 07:59 Source: patient Mode of arrival: ambulatory Limitations: no limitations History of Present Illness HPI narrative: Patient is a 52-year-old female who presents emergency department for evaluation. She has a history of adenocarcinoma of the rectum, prior ileostomy with reversal/resection, in remission currently, followed by [facility] general oncology, history of small-bowel obstruction last year. She reports history chronic lower back pain for which she is taking oxycodone, and chronic diarrhea since CA treatment. However, since yesterday she has been experiencing diffuse body aches, left lower quadrant abdominal pain that is not typical for her, increased frequency/persistent diarrhea, and associated nausea. Denies any fevers, chills, upper respiratory type symptoms, chest pain, shortness of breath, dysuria, urinary frequency/urgency/hesitancy. Related Data Home Medications Medication Instructions Recorded Confirmed folic acid 1 mg tablet 1 tab PO DAILY 10/08/21 08/15/22 cyanocobalamin (vitamin B-12) 1,000 mcg PO DAILY 01/10/22 08/15/22 1,000 mcg tablet Previous Rx's Medication Instructions Recorded omeprazole 20 mg capsule,delayed 20 mg PO DAILY #30 caps 03/10/22 release cholecalciferol (vitamin D3) 50 50 mcg PO DAILY #30 caps 03/15/22 mcg (2,000 unit) capsule oxycodone 5 mg tablet 5 mg PO Q8H PRN Breakthrough Pain, 08/05/22 Severe #30 tabs Allergies Allergy/AdvReac Type Severity Reaction Status Date / Time gabapentin AdvReac Unknown dizziness, Verified 07/26/22 13:07 lightheadedness ibuprofen AdvReac Unknown nausea and Verified 07/26/22 13:07 vomiting Review of Systems Review of Systems: Yes all other systems are reviewed and are negative PMFSH Past Medical History Attestation statement: The following information was validated with the patient. Source: old records reviewed Medical History Adenocarcinoma of rectum Chronic pain syndrome H. pylori infection Hx of gastroesophageal reflux (GERD) Lumbar back pain with radiculopathy affecting left lower extremity Rectal cancer Sacroiliitis Tubular adenoma Vitamin D deficiency Surgical History H/O tubal ligation History of bursectomy History of esophagogastroduodenoscopy (EGD) History of low anterior resection of rectum (~07/31/21) History of nasal polypectomy History of reversal of ileostomy (~01/08/22) Hx of colonoscopy Hx of hemorrhoidectomy Hx of ileostomy S/P anal fissurectomy Family History Family History Mother Diabetes HTN (hypertension) Father Diabetes Heart attack Brother Diabetes Heart problem HTN (hypertension) Maternal Aunt Breast cancer Sister Uterus cancer Maternal Aunt Breast cancer Mother Lung cancer Social History Social History Household Members: Spouse Housing: House Are you a primary primary care physician to a significant other at home: No Do you presently have visiting nurse or other home services: No Alcohol intake: never Patient Tobacco Use Status: Former Tobacco user Quit Date: 2020 Advance Directives: No Advance Directives Information Provided: No service: No Current occupational status: unemployed Cognitive needs: No Hearing needs: No Vision needs: No Physical Exam ED Vital Signs: Vital Signs - 24 hr 08/15/22 07:05 08/15/22 12:41 Temperature 97.9 F 98.1 F Pulse Rate 86 64 Respiratory Rate 18 16 Blood Pressure 129/87 125/72 Pulse Oximetry 100 100 Oxygen Delivery Method Room Air Room Air BMI result Body Mass Index 21.3 Appearance: Alert.?Oriented to person, place and time. No acute distress.?Normal affect. Eyes: Pupils equal, round and reactive to light.? ENT: Pharynx normal.?? Neck: Normal inspection.? Neck supple.?? CVS: Heart sounds normal. Normal heart rate and rhythm.? Pulses normal.?? Respiratory: No respiratory distress.? Lung sounds clear to auscultation bilaterally?? Abdomen: Soft with diffuse left-sided tenderness upon palpation. Normoactive bowel sounds. No pulsatile mass.?? Skin: Skin warm and dry.? Normal skin color.? Extremities: No lower extremity edema.? Neuro: Moves all extremities spontaneously. Sensation intact bilaterally. No focal neuro deficits. Ambulates with normal steady gait. Course Reevaluation(s) Reevaluation #1: CBC is overall unremarkable, leukopenia which is consistent with prior labs. CMP is overall unremarkable, BUN of 3, suspect this is due to dehydration, also consistent with similar levels previously. CT today revealing proximal jejunum distended loops with question of wall thickening, concern if this is inflammatory v. infectious, v. neoplastic at this time, also there is incidental finding 1.5 cm left lower lobe mass suspicious for metastasis. Upon speaking with patient, she reports that she has in the past been made aware of left lower lung mass, states [place] [facility] [place] finding prior to her chemo and radiation treatment, was advised that this was of no concern. Upon review [place] [facility] [place] and external MRI record, there is a CT angio of the chest from March 2021 which did reveal left lower lobe nodules that were unchanged when compared to PET scan from October 2020. In addition, she had a repeat colonoscopy done at [facility] March 2022, with recommendations for repeat in 1-2 years. Patient at this time reports that the pain that is felt to her left side of the abdomen, which is diffuse upper and lower, in addition to left lateral chest wall has actually been ongoing for the past few weeks. It is intermittent, described as sharp and stabbing at times, and has been able to be relieved with application of ice. She does continue to report that diarrhea has been significantly more frequent since last night, she reports 8 episodes of diarrhea today. Nausea has improved, she has not had any vomiting. Time: 11:49 Reevaluation #2: I consult with General surgery on-call, Dr. Frye, at this time no evidence of obstruction, there may be possible partial small-bowel obstruction. I discussed these findings with patient, she has been tolerating bobbi kaley and crackers. She denies any nausea at this time. She would like to be discharged home, we did discuss possibility of consideration for hospital admission if he were unable to tolerate p.o. intake. She declines at this time. She states that she will follow up with her doctor. Additionally advised follow-up with her oncologist regarding lung mass. She verbalizes understanding of this. Time: 13:05 Medications Administered Discontinued Medications Generic Name Dose Route Start Last Admin Trade Name Freq PRN Reason Stop Dose Admin Sodium Chloride 1,000 mls @ 999 mls/hr 08/15/22 08:30 08/15/22 09:59 Ns IV 08/15/22 09:30 Infused .Q1H1M AURY Infusion Morphine Sulfate 4 mg 08/15/22 08:21 08/15/22 09:01 Morphine Sulfate 4 Mg/Ml Cartridge IVPUSH 08/15/22 08:22 4 mg ONCE ONE Administration Protocol Morphine Sulfate 4 mg 08/15/22 10:00 08/15/22 10:37 Morphine Sulfate 4 Mg/Ml Cartridge IVPUSH 08/15/22 10:01 4 mg ONCE ONE Administration Protocol Ondansetron HCl 4 mg 08/15/22 08:21 08/15/22 09:01 Ondansetron Hcl 4 Mg/2 Ml Vial IVPUSH 08/15/22 08:22 4 mg ONCE ONE Administration Medical Decision Making Medical Decision Making [facility] Narrative: Patient is a 52-year-old female with past medical history of adenocarcinoma of the rectum, chronic pain syndrome, lumbar radiculopathy, GERD, anxiety present ing to emergency department for evaluation abdominal pain with diarrhea nausea and body aches as reported in HPI. At the time of examination she appears overall fatigue. Vitals are within normal limits. Nontoxic in appearance. Abdominal examination notable for diffuse left-sided tenderness upon palpation, however currently without any rigidity or guarding. I have a lower suspicion for acute abdomen, however given patient's past medical history will obtain CT of the abdomen and pelvis for further evaluation; bowel obstruction, colitis, diverticulitis, mass/lesion. Will obtain CBC to evaluate for leukocytosis/ anemia, CMP and lipase to evaluate for abnormal electrolytes /abnormal renal fu nction/ abnormal hepatic/biliary function, and Urinalysis. Patient to receive 1 L normal saline IV, Zofran 4 mg IV, morphine 4 mg IV. Disposition pending results. Differential Diagnosis Differential Diagnoses: The differential diagnosis associated with the presentation includes (As noted above) Consult Healthcare Provider Management of the patient was discussed with: Credit Collections Clerk (As noted in course) Lab Data [facility] Lab Attestation statement: I reviewed the patient's lab results. 08/15/22 08:37 08/15/22 08:37 Labs: Lab Results 08/15/22 08/15/22 08/15/22 Range/Units 07:16 08:37 08:37 WBC 3.7 L (4.8-10.8) X10*3/uL RBC 4.33 D (4.20-5.50) X10*6/uL Hgb 14.2 (12.0-16.0) g/dl Hct 42.1 (37.0-47.0) % MCV 97.2 (80.0-98.0) fL MCH 32.8 (27.0-33.0) pg MCHC 33.7 (31.0-35.0) g/dl RDW 11.3 (11.0-16.0) % Plt Count 311 D (160-400) X10*3/uL MPV 9.9 (9.4-12.3) fL Immature Gran % (Auto) 0.3 (0.0-0.4) % Neut % (Auto) 68.5 (45-73) % Lymph % (Auto) 22.8 (20-40) % Mayes % (Auto) 7.3 (2-11) % Eos % (Auto) 0.8 (0-4) % Baso % (Auto) 0.3 (0-2) % Lymph # (Auto) 0.9 L (1.2-4.9) X10*3/uL Mayes # (Auto) 0.3 (0.1-1.2) X10*3/uL Eos # (Auto) 0.0 (0.0-0.4) X10*3/uL Baso # (Auto) 0.0 (0.0-0.2) X10*3/uL Abs Immat Gran (auto) 0.01 (0.00-0.03) X10*3/uL Absolute Neuts (auto) 2.6 (2.0-8.3) x10*3/uL Absolute Nucleated RBC 0.000 (0.0-0.012) X10*3/uL Nucleated RBC % (auto) 0.0 (0.0-0.2) /100WBC Sodium 144 (135-145) mmol/L Potassium 4.6 (3.3-5.1) mmol/L Chloride 105 (96-108) mmol/L Carbon Dioxide 27 (22-29) mmol/L Anion Gap 17 (12-20) BUN 3 L (9-16) mg/dL Creatinine 0.86 (0.5-1.4) mg/dL Estim Creat Clear Calc 57.0 Estimated GFR > 60 Random Glucose 102 (60-115) mg/dL Lactic Acid (0.5-2.0) mmol/L Calcium 9.5 D (8.4-10.2) mg/dL Total Bilirubin 0.6 (0.0-1.0) mg/dL AST 43 H (5-31) U/L ALT 23 (0-31) U/L Alkaline Phosphatase 156 H (39-117) U/L Total Protein 7.9 (6.5-8.0) g/dL Albumin 4.2 (3.5-5.0) g/dL Lipase 15 (8-78) U/L Urine Color Urine Appearance Urine pH (5.0-9.0) Ur Specific Dunbar (1.005-1.025) Urine Protein (Neg-Trace) mg/dL Urine Glucose (UA) (Negative) mg/dL Urine Ketones (Negative) mg/dL Urine Blood (Negative) Urine Nitrite (Negative) Ur Leukocyte Esterase (Negative) Urine RBC (0-2) /HPF Urine WBC (0-5) /HPF Ur Squamous Epith Cells (0-2) /HPF Urine Bacteria (None Seen) Hyaline Casts (0-2) /LPF Influenza Type A (PCR) NEGATIVE (Negative) Influenza Type B (PCR) NEGATIVE (Negative) RSV RNA Qual (PCR) NEGATIVE (Negative) SARS-CoV-2 RNA (RT-PCR) NEGATIVE (Negative) 08/15/22 08/15/22 Range/Units 08:37 11:09 WBC (4.8-10.8) X10*3/uL RBC (4.20-5.50) X10*6/uL Hgb (12.0-16.0) g/dl Hct (37.0-47.0) % MCV (80.0-98.0) fL MCH (27.0-33.0) pg MCHC (31.0-35.0) g/dl RDW (11.0-16.0) % Plt Count (160-400) X10*3/uL MPV (9.4-12.3) fL Immature Gran % (Auto) (0.0-0.4) % Neut % (Auto) (45-73) % Lymph % (Auto) (20-40) % Mayes % (Auto) (2-11) % Eos % (Auto) (0-4) % Baso % (Auto) (0-2) % Lymph # (Auto) (1.2-4.9) X10*3/uL Mayes # (Auto) (0.1-1.2) X10*3/uL Eos # (Auto) (0.0-0.4) X10*3/uL Baso # (Auto) (0.0-0.2) X10*3/uL Abs Immat Gran (auto) (0.00-0.03) X10*3/uL Absolute Neuts (auto) (2.0-8.3) x10*3/uL Absolute Nucleated RBC (0.0-0.012) X10*3/uL Nucleated RBC % (auto) (0.0-0.2) /100WBC Sodium (135-145) mmol/L Potassium (3.3-5.1) mmol/L Chloride (96-108) mmol/L Carbon Dioxide (22-29) mmol/L Anion Gap (12-20) BUN (9-16) mg/dL Creatinine (0.5-1.4) mg/dL Estim Creat Clear Calc Estimated GFR Random Glucose (60-115) mg/dL Lactic Acid 1.4 (0.5-2.0) mmol/L Calcium (8.4-10.2) mg/dL Total Bilirubin (0.0-1.0) mg/dL AST (5-31) U/L ALT (0-31) U/L Alkaline Phosphatase (39-117) U/L Total Protein (6.5-8.0) g/dL Albumin (3.5-5.0) g/dL Lipase (8-78) U/L Urine Color Yellow Urine Appearance Clear Urine pH 5.5 (5.0-9.0) Ur Specific Dunbar >= 1.030 H (1.005-1.025) Urine Protein Negative (Neg-Trace) mg/dL Urine Glucose (UA) Negative (Negative) mg/dL Urine Ketones Negative (Negative) mg/dL Urine Blood Small (1+) H (Negative) Urine Nitrite Negative (Negative) Ur Leukocyte Esterase Trace H (Negative) Urine RBC 6-10 H (0-2) /HPF Urine WBC 0-5 (0-5) /HPF Ur Squamous Epith Cells 0-2 (0-2) /HPF Urine Bacteria None Seen (None Seen) Hyaline Casts 0-2 (0-2) /LPF Influenza Type A (PCR) (Negative) Influenza Type B (PCR) (Negative) RSV RNA Qual (PCR) (Negative) SARS-CoV-2 RNA (RT-PCR) (Negative) Independent Interpretation I performed an independent interpretation of an: CT Scan Radiology Impression Discussion of test interpretation with radiology: I have reviewed the radiologist's reading. Radiologist Impression: CT/CT abdomen pelvis w IV con IMPRESSION: 1.5 cm left lower lobe lung mass suspicious for possible metastasis. Complete CT of the chest versus PET/CT would be of help in further evaluation. ? Question distention with some bowel wall thickening within loops of jejunum as described. ? No evidence of acute diverticulitis.? ? Fleischner guidelines were followed. External Record Review External record reviewed: Office record and Outpatient record Critical Care Time Critical Care Time Critical Care Time: Yes Total Critical Care Time: 45 Attestation: I personally attest to this critical care time spent taking care of the patient exclusive of all other billable procedures was approximately 45 minutes including initial evaluation of patient, ordering tests, x-ray interpretation, EKG interpretation, medical consultation, documentation, re-evaluation. Discharge Plan Discharge Clinical Impression: Abdominal pain, Adenocarcinoma of rectum, Lung nodule Patient Disposition: Home, Self-Care Additional Instructions: As we discussed, the nodule in your left lung was again noticed on your CT today, please follow-up with your oncologist/primary care provider, as this has been persistently present. You were able to tolerate oral intake while in the emergency department, as we discussed, your pain in addition to CT findings may indicate a possible partial small-bowel obstruction. If you feel your pain is worsening, he developed nausea with persistent vomiting, inability to tolerate oral intake, fevers, chills, inability to move your bowels you should return back to the emergency department. You may additionally return to emergency department with any new or worsening symptoms or concerns. Continue taking all of your medications as currently prescribed. Prescriptions: No Action cholecalciferol (vitamin D3) 50 mcg (2,000 unit) capsule 50 mcg PO DAILY Qty: 30 3RF oxycodone 5 mg tablet 5 mg PO Q8H PRN (Reason: Breakthrough Pain, Severe) Qty: 30 0RF Rx Instructions: Partial Fill upon patient request. folic acid 1 mg tablet 1 tab PO DAILY cyanocobalamin (vitamin B-12) 1,000 mcg Tablet 1,000 mcg PO DAILY omeprazole 20 mg capsule,delayed release(DR/EC) 20 mg PO DAILY Qty: 30 4RF Referrals: Ky Lin MD [Primary Care Provider] - Interventions: ED Discharge Assessment Last Done: 08/15/22 14:04 Discharge Date/Time: 08/15/22 14:04
[2022-08-15 08:43] LABS: MANUAL DIFF FLAG NO
[2022-08-15 08:44] LABS: Basophils Percent Auto 0.3 % (0-2); Eosinophils Percent Auto 0.8 % (0-4); Hematocrit 42.1 % (37.0-47.0); Hemoglobin 14.2 g/dl (12.0-16.0); Imm Gran Abs Auto 0.01 X10*3/uL (0.00-0.03); Imm Gran Pct Auto 0.3 % (0.0-0.4); Lymphocytes Absolute Auto 0.9 X10*3/uL (1.2-4.9); Lymphocytes Percent Auto 22.8 % (20-40); Mean Corpuscular HGB Conc 33.7 g/dl (31.0-35.0); Mean Corpuscular Hemoglobin 32.8 pg (27.0-33.0); Mean Corpuscular Volume 97.2 fL (80.0-98.0); Mean Platelet Volume 9.9 fL (9.4-12.3); Monocytes Absolute Auto 0.3 X10*3/uL (0.1-1.2); Monocytes Percent Auto 7.3 % (2-11); Neutrophils Absolute Auto 2.6 x10*3/uL (2.0-8.3); Neutrophils Percent Auto 68.5 % (45-73); Platelet Count 311 X10*3/uL (160-400); Red Blood Count 4.33 X10*6/uL (4.20-5.50); Red Cell Distribution Width 11.3 % (11.0-16.0); White Blood Count 3.7 X10*3/uL (4.8-10.8)
[2022-08-15 08:53] LABS: Lactic Acid 1.4 mmol/L (0.5-2.0)
[2022-08-15] MEDS: 0.9 % Sodium Chloride 1,000 ML 999 ML IV (08:58)
[2022-08-15] MEDS: Morphine Sulfate 4 MG/ML CARTRIDGE IVPUSH ×2 (09:01→10:37)
[2022-08-15] MEDS: ondansetron HCL 4 MG/2 ML VIAL IVPUSH (09:01)
[2022-08-15 09:02] LABS: Alanine Aminotransferase 23 U/L (0-31); Albumin Level 4.2 g/dL (3.5-5.0); Alkaline Phosphatase 156 U/L (39-117); Anion Gap 17 (12-20); Aspartate Amino Transferase 43 U/L (5-31); Bilirubin Total 0.6 mg/dL (0.0-1.0); Blood Urea Nitrogen 3 mg/dL (9-16); Calcium 9.5 mg/dL (8.4-10.2); Carbon Dioxide 27 mmol/L (22-29); Chloride 105 mmol/L (96-108); Estimated Glomerular Filt Rate > 60; Glucose Random 102 mg/dL (60-115); Lipase 15 U/L (8-78); Potassium 4.6 mmol/L (3.3-5.1); Sodium 144 mmol/L (135-145); Total Protein 7.9 g/dL (6.5-8.0)
[2022-08-15 11:29] LABS: Appearance Urine Clear; Color Urine Yellow; Glucose Urine UA Negative (Negative); Leukocyte Esterase Urine Trace (Negative); Nitrite Urine Negative (Negative); PH 5.5 (5.0-9.0); Specific Gravity - Urine >= 1.030 (1.005-1.025); UMIC TRIGGER UACC YES; Urine Blood Small (1+) (Negative); Urine Ketones Negative (Negative); Urine Protein Negative (Neg-Trace)
[2022-08-15 11:56] LABS: Bacteria Urine None Seen (None Seen); Hyaline Casts Urine 0-2 /LPF (0-2); Squamous Epithelial Cell Urine 0-2 /HPF (0-2); WBC Urine 0-5 /HPF (0-5)
[2022-08-15 12:41] VITALS: BP 125/72; PULSE 64; RESP 16; TEMP 36.7; O2SAT 100
--- NOTE | 2022-08-15 13:00 | PHA.MEDREC ---
Pharmacy Consult ? Medication Reconciliation Pharmacy has completed the medication reconciliation. Spoke to patient and reviewed medication list.
== END 2022-08-15 14:04 | disposition home or self-care (01) ==
PROVIDERS: Nurse Practitioner Family; Emergency Provider Emergency Medicine; PCP Internal Medicine
DX: M79.10 Myalgia, unspecified site (principal); C20 Malignant neoplasm of rectum; R10.9 Unspecified abdominal pain; R91.1 Solitary pulmonary nodule; Z20.822 Contact with and (suspected) exposure to COVID-19; Z20.828 Contact with and (suspected) exposure to other viral communicable diseases; Z79.899 Other long term (current) drug therapy
CPT/HCPCS: 0241U; 36415; 74177; 80053; 81001; 83605; 83690; 85025; 96361; 96374; 96375; 96376; 99284; J2270; J2405

== ENCOUNTER 2022-09-07 08:01 | Outpatient (REF) | payer OTHER, SELFPAY ==
--- NOTE | ~2022-09-07 | PE_ITS ---
EXAMINATION: Fluorine-18 FDG PET/CT Scan CLINICAL INDICATION: Subsequent treatment management. History of rectal carcinoma status post chemoradiation and surgery. Lung mass. PROCEDURE: 63 minutes following the intravenous administration of 15.5 mCi of fluorine 18 FDG, images from the base of the skull to the mid thighs were obtained using a combined PET/CT scanner with CT scan based attenuation correction. No oral contrast was administered. No intravenous contrast was administered. Transverse, coronal, sagittal, and volume reconstruction projections were obtained. The patient's blood glucose as determined by a finger stick, was 71 mg/dl immediately prior to injection. Total CT exam dose-length product 192.11 mGy-cm * These CT images were obtained using dose optimization techniques as appropriate, variously including the following: Automated exposure control * Adjustment of mA and/or kV according to patient size (this includes techniques or standardized protocols for targeted exams where dose is matched to indication/reason for exam; i.e. extremities or head) * Use of iterative reconstruction technique COMPARISON: The prior FDG PET CT scan dated 11/11/2020 is available for comparison. The diagnostic CT scan of the abdomen and pelvis, dated 08/15/2022, is available for comparison. CT angiogram of the chest dated 04/08/2021 is also available for comparison. FINDINGS: (Slice numbers described in this report are numbered superiorly to inferiorly with slice #1 in the head) NECK AND VISUALIZED HEAD: No foci of abnormal FDG activity are noted. The distribution of FDG activity is physiological. There is no cervical lymphadenopathy. Mild left maxillary sinus mucosal thickening is noted with no associated abnormal FDG activity. THORAX: There is a solid pulmonary nodule abutting the diaphragmatic pleura in the left lower lobe measuring 1.2 x 1.0 cm in largest transverse dimensions and approximately 1.1 cm cephalocaudad, and this shows weak FDG activity, SUVmax 1.1, slice 109/267. This nodule is not significantly changed from the recent 08/15/2022 CT scan, but is significantly larger than the 04/08/2021 CT scan and baseline 11/11/[address] scan. There is a 0.4 cm nodule in the superior segment of the left lower lobe, slice 203/698 which corresponds to a 0.5 cm nodule at this site on the CT angiogram of the chest dated 04/08/2021. This is too small to be characterized on the FDG PET images. No additional nodules are visualized. There is no pleural or pericardial fluid, or pneumothorax. There is no mediastinal, supraclavicular, or axillary lymphadenopathy. ABDOMEN AND PELVIS: The intensely FDG avid rectal mass present on the prior 11/11/[address] scan is no longer present. There is now no abnormal FDG activity in this region. There is mild FDG activity present throughout the gastrointestinal tract, predominantly in the large bowel, without a suspicious focal component and likely physiological. There is a right lower quadrant subcutaneous suture line that is just superior to a in an anastomotic suture line present in the right lower quadrant of the abdomen, with no associated FDG activity. There is mild diverticulosis without evidence of diverticulitis. The hollow viscera are otherwise unremarkable. The liver, gallbladder, and spleen are unremarkable. A subcentimeter hypodense cyst in the upper pole of the right kidney visualized on the IV contrast enhanced 08/15/[address] scan performed with intravenous contrast is not apparent on these nondiagnostic CT images performed without IV contrast. The kidneys appear unremarkable. The adrenal glands and pancreas are unremarkable. There is no retroperitoneal, mesenteric, pelvic or inguinal lymphadenopathy. The pelvic organs are unremarkable. MUSCULOSKELETAL: There are no foci of abnormal FDG activity in the osseous structures. There are no suspicious sclerotic or lytic lesions visualized. VASCULAR: No significant abnormalities are present. PET/PET CT fusion skull to thigh IMPRESSION: 1. A solid nodule in the base of the left lower lobe shows weak FDG activity. This intensity of FDG activity is nonspecific, but in combination with the enlargement of this nodule, it is suspicious for malignancy. Because approximately 10% of pulmonary malignancies demonstrate no abnormal FDG activity, if biopsy of this nodule is not obtained, followup with diagnostic CT scan in 6 months is recommended. 2. Resolution or resection of the previously visualized intensely FDG avid rectal mass is noted. 3. No additional abnormalities suspicious for metastatic or other malignant lesions are noted.
== END 2022-09-07 08:02 | disposition home or self-care (01) ==
LOC: HO.PET 08:01
PROVIDERS: PCP Internal Medicine; Visit Provider Internal Medicine Medical Oncology
DX: Z13.89 Encounter for screening for other disorder (principal)

== ENCOUNTER → 2022-09-15 13:18 | Outpatient (BNVA) | payer OTHER, SELFPAY | PROVIDERS: PCP Internal Medicine; Visit Provider Surgery | DX: L30.9 Dermatitis, unspecified (principal); Z85.048 Personal history of other malignant neoplasm of rectum, rectosigmoid junction, and anus; Z92.21 Personal history of antineoplastic chemotherapy; Z92.3 Personal history of irradiation | CPT/HCPCS: 99212 ==

== ENCOUNTER → 2022-09-24 08:52 | Outpatient (BNVA) | payer OTHER, SELFPAY | PROVIDERS: PCP Internal Medicine; Visit Provider Surgery | DX: C20 Malignant neoplasm of rectum (principal); R91.8 Other nonspecific abnormal finding of lung field | CPT/HCPCS: 99202 ==

== ENCOUNTER 2022-10-05 08:44 | Outpatient (REF) | payer OTHER, SELFPAY ==
--- NOTE | 2022-10-05 11:30 | PFT_ITS ---
INDICATION: Preop. SPIROMETRY: FEV1 to FVC of 84% with an FEV1 of 3.24 L, which is 133% predicted and FVC of 3.84 L, which is 126% predicted. No significant response to bronchodilator is noted. Maximum voluntary ventilation 96% predicted. LUNG VOLUMES: Total lung capacity 123% predicted with residual volume 102% predicted. DIFFUSION CAPACITY: DLCO 88% predicted. COMPARISON: None. INTERPRETATION: There is no obstructive nor restrictive ventilatory defect identified. No significant response to bronchodilator is noted. Normal maximum voluntary ventilation. Lung volumes with total lung capacity demonstrating a trend of hyperinflation and normal diffusion capacity. Otherwise, normal pulmonary function studies. Clinical correlation warranted. John Padilla MD MR/MODL / [id number]
== END 2022-10-05 08:45 | disposition home or self-care (01) ==
LOC: HO.RESP 08:44
PROVIDERS: PCP Internal Medicine; Visit Provider Surgery
DX: R91.8 Other nonspecific abnormal finding of lung field (principal)
CPT/HCPCS: 94060; 94727; 94729

== ENCOUNTER 2022-10-12 06:13 | Outpatient (REF) | payer OTHER, SELFPAY | END 2022-10-12 06:14 | disposition home or self-care (01) | LOC: CF 06:13 | PROVIDERS: Visit Provider Anesthesiology | DX: Z13.89 Encounter for screening for other disorder (principal) ==

== ENCOUNTER 2022-10-29 05:42 | Observation (INO) | payer OTHER, SELFPAY ==
[2022-10-29] VITALS (7 sets, daily range): BP systolic 109–136; BP diastolic 66–86; PULSE 61–76; RESP 12–20; TEMP 36–36.6; O2SAT 98–100; BMI 20.8
--- NOTE | ~2022-10-29 | CT_ITS ---
EXAMINATION: CT CHEST WITH CONTRAST CLINICAL INFORMATION: Lung mass. Flank pain. COMPARISON: Previous chest x-ray March [address] March 2021 TECHNIQUE: Multidetector volumetric CT imaging of the chest was obtained after the administration of 85 mL of Omnipaque 350 intravenous contrast without immediate adverse reactions. Axial MIP volume rendering provided. Sagittal and coronal reformatted images were obtained. This CT examination was performed using dose optimization techniques as appropriate, variously including the following: *Automated exposure control *Adjustment of mA and/or kV according to patient size (this includes techniques or standardized protocols for targeted exams where dose is matched to indication/reason for exam; i.e. 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 LUNGS: 1.3 cm left lower lobe nodule along the diaphragmatic pleural surface. This is increased from 6 mm on prior chest CTA from 2020. The lungs are otherwise clear. The previously identified 5 mm superior segment left lower lobe nodule seen on March 2021 exam is no longer seen. MEDIASTINUM: The mediastinum is normal. Previously identified right jugular port is been removed. PLEURA: There is no pleural effusion. No pleural mass or thickening. AXILLA: No lymphadenopathy. UPPER ABDOMEN: See abdominal and pelvic CT report same day. OSSEOUS STRUCTURES: Mild degenerative changes of the spine CT/CT chest w IV con IMPRESSION: Interval increase in size and left lower lobe nodule along the diaphragmatic pleural surface from 2020 exam now measuring 1.3 cm. Previously identified superior segment left lower lobe nodule no longer seen. Fleischner guidelines were followed.
--- NOTE | ~2022-10-29 | CT_ITS ---
EXAMINATION: CT ABDOMEN AND PELVIS WITH CONTRAST CLINICAL INFORMATION: Left flank pain. History of colon cancer. COMPARISON: Previous CT of the abdomen and pelvis most recent July 2022 TECHNIQUE: Multidetector volumetric images were obtained from the superior aspect of the liver through the pubic symphysis following administration 85 mL of Omnipaque 350 intravenous contrast. Sagittal and coronal reformatted images were obtained on the technologist's workstation. Oral contrast: Yes This CT examination was performed using dose optimization techniques as appropriate, variously including the following: *Automated exposure control *Adjustment of mA and/or kV according to patient size (this includes techniques or standardized protocols for targeted exams where dose is matched to indication/reason for exam; i.e. extremities or head) *Use of iterative reconstruction technique DLP: 323 mGy-cm FINDINGS: LUNG BASES: 1.3 cm left lower lobe nodule along the diaphragmatic pleural surface. This does not appear appreciably changed in size from CT July 2022. This is again increased in size from older chest CT from 2020. LIVER, GALLBLADDER, AND BILIARY TREE: Fatty liver. Liver is normal in size. No focal hepatic lesion or biliary ductal dilatation is present. The gallbladder is unremarkable with no evidence of radiopaque gallstones, gallbladder wall thickening, or obvious pericholecystic inflammatory changes. PANCREAS: Unremarkable. SPLEEN: Unremarkable. ADRENAL GLANDS: Unremarkable. KIDNEYS AND URETERS: There is a small cyst in the upper pole that is stable. No imaging follow-up recommended. The kidneys are normal in size, shape, and attenuation. No hydronephrosis, hydroureter, or calculi seen. No perinephric stranding. BLADDER: Not optimally distended. GASTROINTESTINAL TRACT: There are postsurgical changes with surgical suture line in the right lower quadrant. This appears to be in distal small bowel. There is some focal bowel dilatation of the surgical staple line. No caliber change to suggest obstruction or recurrent mass is seen. There is fatty infiltration of the wall of the colon. This is a nonspecific finding but can be seen with old colitis. There is question of a mild wall thickening of the distal colon and rectum for mild proctocolitis versus changes due to underdistention. Clinical correlation recommended. There is stranding of the fat in the presacral space. There is prominent pericolic of vasculature or vasa recta. Small and large bowel is otherwise normal. The appendix is normal. ABDOMINAL WALL: No significant hernia is appreciated. LYMPH NODES: Normal. VASCULAR: Unremarkable. PELVIC VISCERA: Unremarkable. OSSEOUS STRUCTURES: Unremarkable. CT/CT abdomen pelvis w IV con IMPRESSION: Normal-appearing left kidney. No cause of left flank pain seen. Fatty liver. Stable postsurgical changes to the small bowel. Fatty infiltration of the wall of the colon which is a nonspecific finding but can be seen with old colitis. Question mild wall thickening of the distal colon and rectum or mild proctocolitis versus changes due to underdistention. Clinical correlation recommended. Fleischner guidelines were followed.
--- NOTE | 2022-10-29 06:34 | ED_ITS ---
HPI - General Adult General Chief complaint: General Medical Stated complaint: L Flank pain Time Seen by Provider: 10/29/22 06:34 Source: patient Mode of arrival: ambulatory Limitations: no limitations History of Present Illness HPI narrative: Patient is a 52 year old assigned female at with a history of colorectal cancer with likely mets to the left lung presenting to the emergency department today with left lung pain. Patient states that she is supposed to have a biopsy on the area of concern on the left lung on Tuesday. Patient states that she has been having left flank pain intermittently for awhile but worse over the last few hours. Patient denies any dizziness, lightheadedness, abdominal pain, jair sea, vomiting, fever, chills, blurry vision, double vision, loss of vision, chest pain, difficulty breathing, shortness of breath, back pain, night sweats, pain with urination, increased urinary frequency, increased urinary urgency, blood in her urine or stool, syncope or a near syncopal episode, recent trauma or falls, bowel incontinence, bladder incontinence, bowel retention, bladder retention, or any other complaints at this time. Onset (ago): month(s) Location: left (flank) Radiation: non-radiation Severity: mild Severity scale (1-10): 4 Pain Consistency: intermittent Relieving factors: none Exacerbating factors: none Associated symptoms: denies other symptoms Treatments prior to arrival: none Related Data Home Medications Medication Instructions Recorded Confirmed cyanocobalamin (vitamin B-12) 1,000 mcg PO DAILY 01/10/22 09/24/22 1,000 mcg tablet Previous Rx's Medication Instructions Recorded cholecalciferol (vitamin D3) 50 50 mcg PO DAILY #30 caps 03/15/22 mcg (2,000 unit) capsule folic acid 1 mg tablet 1 mg PO DAILY 90 days #90 tabs 08/26/22 omeprazole 20 mg capsule,delayed 20 mg PO DAILY #30 caps 10/08/22 release oxycodone 10 mg tablet 10 mg PO Q8H PRN Breakthrough 10/28/22 Pain, Severe #30 tabs Allergies Allergy/AdvReac Type Severity Reaction Status Date / Time gabapentin AdvReac Unknown dizziness, Verified 09/24/22 11:05 lightheadedness ibuprofen AdvReac Unknown nausea and Verified 09/24/22 11:05 vomiting Review of Systems Constitutional: Constitutional: Reports no additional constitutional complaints, Denies chills, Denies fever(s) and Denies night sweats Eyes: Eyes: Reports no additional eye complaints, Denies blurry vision, Denies change in vision, Denies diplopia, Denies eye discharge, Denies loss of vision and Denies eye pain ENT: Denies dizziness Cardiovascular: Cardiovascular: Reports no additional cardiovascular complaints, Denies chest pain, Denies lightheadedness, Denies Loss of Consciousness and Denies dyspnea Respiratory: Respiratory: Reports no additional respiratory complaints and Denies dyspnea Gastrointestinal: Gastrointestinal: Reports no additional gastrointestinal complaints, Denies abdominal pain, Denies melena, Denies hematochezia, Denies change in bowel habits and Denies change in stool character Genitourinary: Genitourinary: Denies hematuria, Denies urinary frequency, Denies dysuria, Reports flank pain (left), Denies urinary incontinence, Denies urinary hesitancy and Denies urinary urgency Musculoskeletal: Musculoskeletal: Reports no additional musculoskeletal complaints, Denies numbness and Denies tingling Neurologic: Denies dizziness, Denies loss of vision, Denies numbness and Denies tingling Psychiatric: Psychiatric: Reports no additional psychiatric complaints Endocrine: Endocrine: Reports no additional endocrine complaints Hematologic/Lymphatic: Hematologic/Lymphatic: Reports no additional hematologic/lymphatic complaints Allergic/Immunologic: Allergic/Immunologic: Reports no additional allergic/imm unologic complaints [facility] Past Medical History Attestation statement: The following information was validated with the patient. Source: old records reviewed and nursing notes reviewed Medical History Adenocarcinoma of rectum (~2020) Chronic pain syndrome Gastroesophageal reflux disease H. pylori infection Lumbar back pain with radiculopathy affecting left lower extremity Mass of left lung Perianal dermatitis Personal history of nicotine dependence Rectal cancer (~2020) Sacroiliitis Tubular adenoma Vitamin D deficiency Surgical History History of bursectomy (~2013) History of colonoscopy History of esophagogastroduodenoscopy (EGD) History of hemorrhoidectomy (~2007) History of low anterior resection of rectum (~07/2021) History of nasal polypectomy History of reversal of ileostomy (~12/2021) History of tubal ligation (~1999) S/P anal fissurectomy (~2008) Family History Family History Mother Diabetes HTN (hypertension) Father Diabetes Heart attack Brother Diabetes Heart problem HTN (hypertension) Maternal Aunt Breast cancer Sister Uterus cancer Maternal Aunt Breast cancer Mother Lung cancer Social History Social History Household Members: Spouse Housing: House Are you a primary wound care physician to a significant other at home: No Do you presently have visiting nurse or other home services: No Alcohol intake: never Patient Tobacco Use Status: Former Tobacco user Quit Date: 2020 Smoked in Last 30 Days: No Use of substances other than those prescribed or required for medical reasons: No Advance Directives: No Advance Directives Information Provided: No Patient : No service: No Current occupational status: unemployed Cognitive needs: No Hearing needs: No Vision needs: No Physical Exam ED Vital Signs: Vital Signs - 24 hr 10/29/22 06:02 10/29/22 06:36 10/29/22 08:15 Temperature 97.6 F 97.9 F Pulse Rate 76 63 62 Respiratory Rate 20 17 12 Blood Pressure 134/86 136/78 126/74 Pulse Oximetry 98 100 100 Oxygen Delivery Method Room Air Room Air Room Air 10/29/22 11:32 Temperature Pulse Rate 69 Respiratory Rate 13 Blood Pressure 109/66 Pulse Oximetry 100 Oxygen Delivery Method Room Air BMI result Body Mass Index 20.8 Const General: cooperative, no acute distress, alert and awake Nutritional Appearance: well nourished Orientation/consciousness: patient oriented x3 Limitations: no limitations [facility] Head: Yes normal to inspection and Yes atraumatic Ears: hearing grossly normal bilaterally and external ears normal General nose exam: Normal external nose present, no nasal discharge noted and no epistaxis Face and sinus: Yes normal facial exam, No abrasion and No laceration Mouth: Normal oral and palatal mucosa present, no drooling and no muffled voice Eyes General: appearance normal, both eyes and all related structures Periorbital: periorbital findings normal Eyelids: Yes eyelids normal Conjunctivae: conjunctivae normal Pupils: Equal, round and reactive pupils present EOM: EOMs intact bilaterally Neck Neck: Yes normal visual inspection, Yes full ROM and Yes no lymphadenopathy Chest Chest palpation & inspection: normal inspection of the chest Resp Effort & Inspection: normal respiratory effort and able to speak in complete sentences Auscultation: clear to auscultation bilaterally Cardio Rate: regular rate Rhythm: regular rhythm GI Inspection: Yes normal to inspection Neuro General: patient oriented x3 and moves all extremities Cranial nerves: Yes Equal, round and reactive pupils present Cognition (Neuro): normal cognition Motor exam (neuro): 5/5 motor strength present throughout Sensory Exam: Normal double simultaneous stimulation for sensation Coordination: [id number] test normal Extrem General: Yes normal to inspection, Yes full ROM and Yes capillary refill normal Psych Appearance: grossly normal Mental Status: mental status grossly normal Affect: normal affect Attitude: cooperative Thought process: Normal thought process present Thought content: Normal thought content present Insight: Good insight present (Psych) Medications Administered Discontinued Medications Generic Name Dose Route Start Last Admin Trade Name Freq PRN Reason Stop Dose Admin Hydromorphone HCl 1 mg 10/29/22 07:21 10/29/22 08:17 Hydromorphone Hcl 1 Mg/Ml Syringe IVPUSH 10/29/22 07:22 1 mg ONCE ONE Administration Protocol Hydromorphone HCl 1 mg 10/29/22 11:12 10/29/22 11:33 Hydromorphone Hcl 1 Mg/Ml Syringe IVPUSH 10/29/22 11:13 1 mg ONCE ONE Administration Protocol Iohexol 85 ml 10/29/22 08:04 10/29/22 08:05 Iohexol 350 Mg/Ml 100 Ml Infus..Btl IV 10/29/22 08:05 85 ml ONCE ONE Administration Oxycodone HCl 10 mg 10/29/22 06:44 10/29/22 06:50 Oxycodone Hcl Immed Release 5 Mg Tablet PO 10/29/22 06:45 10 mg ONCE ONE Administration Medical Decision Making Medical Decision Making MDM Narrative: Patient is a 52 year old assigned female at with a history of colorectal cancer with new mets to the left lower lung presenting to the emergency department today with left flank pain. Patient's physical exam was unremarkable. Patient's blood work was unremarkable. Patient's chest CT showed a larger left lower lobe mass. Patient's abdomen/pelvis CT showed colonic wall thickening secondary to new vs. old colitis. Patient received PO medication as well as 2 separate doses of IV pain medication however, the pain persists. I explained my physical exam findings as well as all test results to the patient. I answered all questions asked by the patient. I spoke to the hospitalist team who agreed to observation admission. Patient verbalized agreement and understanding with this treatment plan and admission for observation. Differential Diagnosis Differential Diagnoses: The differential diagnosis associated with the presentation includes intractable pain, left flank pain, new lung mass Consult Healthcare Provider Management of the patient was discussed with: Hospitalist (agreed to admission to obs) and Flight Operations Coordinator (spoke with patient's oncologist who agreed with pain management) Lab Data MDM Lab Attestation statement: I reviewed the patient's lab results. 10/29/22 06:44 10/29/22 06:44 Labs: Lab Results 10/29/22 10/29/22 Range/Units 06:44 06:44 WBC 3.0 L (4.8-10.8) X10*3/uL RBC 3.93 L (4.20-5.50) X10*6/uL Hgb 13.1 (12.0-16.0) g/dl Hct 38.7 (37.0-47.0) % MCV 98.5 H (80.0-98.0) fL MCH 33.3 H (27.0-33.0) pg MCHC 33.9 (31.0-35.0) g/dl RDW 11.3 (11.0-16.0) % Plt Count 247 (160-400) X10*3/uL MPV 10.2 (9.4-12.3) fL Absolute Nucleated RBC 0.000 (0.0-0.012) X10*3/uL Nucleated RBC % (auto) 0.0 (0.0-0.2) /100WBC Sodium 141 (135-145) mmol/L Potassium 4.9 (3.3-5.1) mmol/L Chloride 105 (96-108) mmol/L Carbon Dioxide 26 (22-29) mmol/L Anion Gap 15 (12-20) BUN 3 L (9-16) mg/dL Creatinine 1.03 (0.5-1.4) mg/dL Estim Creat Clear Calc 47.6 Estimated GFR 56 Random Glucose 95 (60-115) mg/dL Calcium 9.7 (8.4-10.2) mg/dL Total Bilirubin 0.8 (0.0-1.0) mg/dL AST 88 H (5-31) U/L ALT 45 H (0-31) U/L Alkaline Phosphatase 162 H (39-117) U/L Total Protein 7.4 (6.5-8.0) g/dL Albumin 4.0 (3.5-5.0) g/dL Independent Interpretation I performed an independent interpretation of an: CT Scan Interpretation: My interpretation is in agreement with the radiologist's impression of these imaging studies. EXAMINATION: CT CHEST WITH CONTRAST CLINICAL INFORMATION: Lung mass. Flank pain.? COMPARISON: Previous chest x-ray March [address] March 2021 TECHNIQUE: Multidetector volumetric CT imaging of the chest was obtained after the administration of 85 mL of Omnipaque 350 intravenous contrast without immediate adverse reactions. Axial MIP volume rendering provided. Sagittal and coronal reformatted images were obtained. This CT examination was performed using dose optimization techniques as appropriate, variously including the following: *Automated exposure control *Adjustment of mA and/or kV according to patient size (this includes techniques or standardized protocols for targeted exams where dose is matched to indication/reason for exam; i.e. extremities or head) *Use of iterative reconstruction technique DLP: 200 mGy-cm FINDINGS: TOWER OBSERVER: Nodule at the left lung base. LUNGS: 1.3 cm left lower lobe nodule along the diaphragmatic pleural surface. This is increased from 6 mm on prior chest CTA from 2020. The lungs are otherwise clear. The previously identified 5 mm superior segment left lower lobe nodule seen on March 2021 exam is no longer seen.? MEDIASTINUM: The mediastinum is normal. Previously identified right jugular port is been removed. PLEURA: There is no pleural effusion. No pleural mass or thickening.? AXILLA: No lymphadenopathy.? UPPER ABDOMEN: See abdominal and pelvic CT report same day.? OSSEOUS STRUCTURES: Mild degenerative changes of the spine? CT/CT chest w IV con IMPRESSION: Interval increase in size and left lower lobe nodule along the diaphragmatic pleural surface from 2020 exam now measuring 1.3 cm. Previously identified superior segment left lower lobe nodule no longer seen. ? Fleischner guidelines were followed. Dictated By: Shannon Rodriguez MD Signed By: Electronically signed by Shannon Rodriguez MD 10/29/22 1145 EXAMINATION: CT ABDOMEN AND PELVIS WITH CONTRAST? CLINICAL INFORMATION: Left flank pain. History of colon cancer.? COMPARISON: Previous CT of the abdomen and pelvis most recent July 2022 TECHNIQUE: Multidetector volumetric images were obtained from the superior aspect of the liver through the pubic symphysis following administration 85 mL of Omnipaque 350 intravenous contrast. Sagittal and coronal reformatted images were obtained on the technologist's workstation.? Oral contrast: Yes This CT examination was performed using dose optimization techniques as appropriate, variously including the following: *Automated exposure control *Adjustment of mA and/or kV according to patient size (this includes techniques or standardized protocols for targeted exams where dose is matched to indication/reason for exam; i.e. extremities or head) *Use of iterative reconstruction technique DLP: 323 mGy-cm FINDINGS: LUNG BASES: 1.3 cm left lower lobe nodule along the diaphragmatic pleural surface. This does not appear appreciably changed in size from CT July 2022. This is again increased in size from older chest CT from 2020. LIVER, GALLBLADDER, AND BILIARY TREE: Fatty liver. Liver is normal in size. No focal hepatic lesion or biliary ductal dilatation is present. The gallbladder is unremarkable with no evidence of radiopaque gallstones, gallbladder wall thickening, or obvious pericholecystic inflammatory changes.? PANCREAS: Unremarkable.? SPLEEN: Unremarkable.? ADRENAL GLANDS: Unremarkable.? KIDNEYS AND URETERS: There is a small cyst in the upper pole that is stable. No imaging follow-up recommended. The kidneys are normal in size, shape, and attenuation. No hydronephrosis, hydroureter, or calculi seen. No perinephric stranding. ? BLADDER: Not optimally distended. GASTROINTESTINAL TRACT: There are postsurgical changes with surgical suture line in the right lower quadrant. This appears to be in distal small bowel. There is some focal bowel dilatation of the surgical staple line. No caliber change to suggest obstruction or recurrent mass is seen. There is fatty infiltration of the wall of the colon. This is a nonspecific finding but can be seen with old colitis. There is question of a mild wall thickening of the distal colon and rectum for mild proctocolitis versus changes due to underdistention. Clinical correlation recommended. There is stranding of the fat in the presacral space. There is prominent pericolic of vasculature or vasa recta. Small and large bowel is otherwise normal. The appendix is normal. ABDOMINAL WALL: No significant hernia is appreciated.? LYMPH NODES: Normal. VASCULAR: Unremarkable. PELVIC VISCERA: Unremarkable.? OSSEOUS STRUCTURES: Unremarkable.? CT/CT abdomen pelvis w IV con IMPRESSION: Normal-appearing left kidney. No cause of left flank pain seen. Fatty liver. Stable postsurgical changes to the small bowel. Fatty infiltration of the wall of the colon which is a nonspecific finding but can be seen with old colitis. Question mild wall thickening of the distal colon and rectum or mild proctocolitis versus changes due to underdistention. Clinical correlation recommended. Fleischner guidelines were followed. Dictated By: Shannon Rodriguez MD Signed By: Electronically signed by Shannon Rodriguez MD 10/29/22 8231 Critical Care Time Critical Care Time Critical Care Time: Yes Total Critical Care Time: 30 Attestation: I spent 30 minutes of Critical Care Time with this patient. This does not include time spent on separately reported billable procedures. Discharge Plan Discharge Clinical Impression: Intractable pain, Lung mass Patient Disposition: Admitted as Observation
[2022-10-29 06:49] LABS: Hematocrit 38.7 % (37.0-47.0); Hemoglobin 13.1 g/dl (12.0-16.0); Mean Corpuscular HGB Conc 33.9 g/dl (31.0-35.0); Mean Corpuscular Hemoglobin 33.3 pg (27.0-33.0); Mean Corpuscular Volume 98.5 fL (80.0-98.0); Mean Platelet Volume 10.2 fL (9.4-12.3); Platelet Count 247 X10*3/uL (160-400); Red Blood Count 3.93 X10*6/uL (4.20-5.50); Red Cell Distribution Width 11.3 % (11.0-16.0)
[2022-10-29] MEDS: oxyCODONE HCl Immed Release 5 MG TABLET 10 MG PO (06:50)
[2022-10-29 07:04] LABS: Alanine Aminotransferase 45 U/L (0-31); Alkaline Phosphatase 162 U/L (39-117); Anion Gap 15 (12-20); Aspartate Amino Transferase 88 U/L (5-31); Bilirubin Total 0.8 mg/dL (0.0-1.0); Blood Urea Nitrogen 3 mg/dL (9-16); Calcium 9.7 mg/dL (8.4-10.2); Carbon Dioxide 26 mmol/L (22-29); Chloride 105 mmol/L (96-108); Creatinine Clr Calc Pharmacy 47.6; Estimated Glomerular Filt Rate 56; Glucose Random 95 mg/dL (60-115); Potassium 4.9 mmol/L (3.3-5.1); Sodium 141 mmol/L (135-145); Total Protein 7.4 g/dL (6.5-8.0)
[2022-10-29] MEDS: iohexoL 350 MG/ML 100 ML INFUS..BTL 85 ML IV (08:05)
[2022-10-29] MEDS: HYDROmorphone HCl 1 MG/ML SYRINGE IVPUSH ×4 (08:17→21:16)
--- NOTE | 2022-10-29 12:56 | PM.IMHP ---
History of Present Illness Date of Service: 10/29/22 Chief Complaint: Pain in the lung 52 year old female with he has a history of adenocarcinoma of the rectum in 2019 s/p resection and radiation treatment and is followed by [facility] and is supposed to be in remission; she is followed at [facility]. She has been having a left sided rib area pain and has had an left lung solitary mass diagnosed and is supposed to have surgical resection in this coming tuesday11/01/[address] Rosibel Johnson. She presented to the ED today because of unbearable pain. CT chest show Interval increase in size and left lower lobe nodule along the diaphragmatic pleural surface from 2020 exam now measuring 1.3 cm. Previously identified superior segment left lower lobe nodule no longer seen. CT of abdomen show Question mild wall thickening of the distal colon and rectum or mild proctocolitis versus changes due to underdistention.? Her pain is better after dilaudid Review of Systems Review of Systems: Gen: no fever Resp: no sob, no cough CV: rib pain, no KAUR, no leg edema GI: No n/v, no abd pain Neuro: No confusion Yes all other systems are reviewed and are negative [facility] Medical History Adenocarcinoma of rectum (~2020) Chronic pain syndrome Gastroesophageal reflux disease H. 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 Mass of left lung Mass of left lung Perianal dermatitis Personal history of nicotine dependence Rectal cancer (~2020) Sacroiliitis Tubular adenoma Vitamin D deficiency Family History Mother Diabetes HTN (hypertension) Father Diabetes Heart attack Brother Diabetes Heart problem HTN (hypertension) Maternal Aunt Breast cancer Sister Uterus cancer Maternal Aunt Breast cancer Mother Lung cancer Surgical History History of bursectomy (~2013) History of colonoscopy History of esophagogastroduodenoscopy (EGD) History of hemorrhoidectomy (~2007) History of low anterior resection of rectum (~07/2021) History of nasal polypectomy History of reversal of ileostomy (~12/2021) History of tubal ligation (~1999) S/P anal fissurectomy (~2008) Status post lung surgery Social History Household Members: Significant Other Housing: House Are you a primary memory care program resident to a significant other at home: No Do you presently have visiting nurse or other home services: No Alcohol intake: never Patient Tobacco Use Status: Former Tobacco user Quit Date: 2020 service: No Current occupational status: unemployed and disabled Cognitive needs: No Hearing needs: No Vision needs: No Meds Allergies Allergy/AdvReac Type Severity Reaction Status Date / Time gabapentin AdvReac Unknown dizziness, Verified 12/03/22 05:42 lightheadedness ibuprofen AdvReac Unknown nausea and Verified 12/03/22 05:42 vomiting Active Medications: Current Medications Pharmacy Consult (Consult Rx Perform Med Rec) 1 each MISCELLANE ONCE PRN PRN Reason: Consult order Home Medications Medication Instructions Recorded Confirmed Last Taken Type cyanocobalamin (vitamin B-12) 1,000 mcg PO DAILY 01/10/22 12/03/22 10/29/22 History 1,000 mcg tablet cholecalciferol (vitamin D3) 50 50 mcg PO FR 10/29/22 12/03/22 10/29/22 History mcg (2,000 unit) capsule omeprazole 20 mg capsule,delayed 20 mg PO DAILY@0630 10/29/22 12/03/22 10/29/22 History release oxycodone 10 mg tablet 10 mg PO Q4H PRN Breakthrough 10/29/22 12/03/22 10/29/22 History Pain, Severe Physical Exam Vital Signs and Narrative: Vital Signs: Last Vital Signs Temp 97.9 F 10/29/22 06:36 Pulse 69 10/29/22 11:32 Resp 13 10/29/22 11:32 BP 109/66 10/29/22 11:32 Pulse Ox 100 10/29/22 11:32 O2 Del Method Room Air 10/29/22 11:32 BMI result Body Mass Index 20.8 Constitutional: Alert, in no distress. Mental Status: Oriented to person, place and time. Eyes: Pupils are equal, round and reactive to light. Ear, Nose and Throat: Oropharynx clear, mucous membranes moist. Ears and nose without deformities. Trachea midline. Respiratory: Clear to auscultation. No wheezing, rales or rhonchi. Cardiovascular: S1 S2 regular. No murmurs, rubs or gallops. Gastrointestinal: Abdomen soft, non-tender, non-distended. Normal bowel sounds.? Neurologic: Cranial nerves II-XII grossly intact. No focal neurological deficits. Moves all extremities spontaneously.? Skin: No rashes or lesions.? Musculoskeletal: No cyanosis or clubbing. Psychiatric: Normal mood and affect? Results Labs 10/29/22 06:44 10/29/22 06:44 Labs: Laboratory Results - last 24 hr 10/29/22 10/29/22 06:44 06:44 MCV 98.5 H MCH 33.3 H MCHC 33.9 RDW 11.3 Plt Count 247 MPV 10.2 Absolute Nucleated RBC 0.000 Nucleated RBC % (auto) 0.0 Anion Gap 15 Estim Creat Clear Calc 47.6 Estimated GFR 56 Random Glucose 95 Calcium 9.7 Total Bilirubin 0.8 AST 88 H ALT 45 H Alkaline Phosphatase 162 H Total Protein 7.4 Albumin 4.0 Imaging Radiologist's Impressions: Impressions Abdomen/Pelvis CT 10/29/22 08:08 IMPRESSION: Normal-appearing left kidney. No cause of left flank pain seen. Fatty liver. Stable postsurgical changes to the small bowel. Fatty infiltration of the wall of the colon which is a nonspecific finding but can be seen with old colitis. Question mild wall thickening of the distal colon and rectum or mild proctocolitis versus changes due to underdistention. Clinical correlation recommended. Fleischner guidelines were followed. Chest CT 10/29/22 08:08 IMPRESSION: Interval increase in size and left lower lobe nodule along the diaphragmatic pleural surface from 2020 exam now measuring 1.3 cm. Previously identified superior segment left lower lobe nodule no longer seen. Fleischner guidelines were followed. Assessment and Plan (1) Lung mass: Status: Acute Plan 52 year old female with he has a history of adenocarcinoma of the rectum in 2020 s/p resection and radiation treatment and is followed by [facility] and is supposed to be in remission; she is followed at [facility]. Now with pulmonary nodule with pain and is awaiting biopsy and surgical resection Pain related to Pulmonary nodule pain control with dilauid, and oxycodone and once pain control discharge to follow up on outptatint basis for biopsy and lung mass resection scheduled for 11/01 at [facility]. Observation overnight. Time Spent With Patient Time: Total time managing care of this patient today ____ minutes. Quality Stroke Does the patient have a stroke diagnosis?: No VTE Prior VTE?: No VTE Risk Level:: Medical - moderate - high VTE Device Contraindication: Treatment Not Tolerated VTE Drug Contraindication: N/A - Med Ordered
[2022-10-29] MEDS: 0.9 % Sodium Chloride Flush 3 ML SYRINGE IVFLUSH ×2 (16:03→21:17)
--- NOTE | 2022-10-29 16:21 | PHA.MEDREC ---
Pharmacy Consult ? Medication Reconciliation Pharmacy has completed the medication reconciliation. Pt is good historian and was able to confirm all home meds. Claim history states she is on cholecalciferol daily but she says she only takes on Tuesday.
[2022-10-29] MEDS: Melatonin 3 MG TABLET 6 MG PO (21:16)
[2022-10-29] MEDS: oxyCODONE HCl Immed Release 5 MG TABLET PO (23:52)
[2022-10-30] MEDS: HYDROmorphone HCl 1 MG/ML SYRINGE IVPUSH ×6 (01:03→21:27)
[2022-10-30 04:00] VITALS: BP 102/66; PULSE 51; RESP 16; TEMP 36.5; O2SAT 99
[2022-10-30 05:30] VITALS: BP 109/62; PULSE 76; RESP 16; TEMP 37; O2SAT 97
[2022-10-30 08:00] VITALS: BP 121/68; PULSE 57; RESP 16; TEMP 36.2; O2SAT 100
--- NOTE | 2022-10-30 08:39 | HO.PM.IMPN ---
Subjective Subjective Date of Service: 10/30/22 Interval History: patient states pain is improving although still needing IV pain medication pushes. States she feels much better since admission Constitutional Constitutional: Reports no additional constitutional complaints Cardiovascular Cardiovascular: Reports no additional cardiovascular complaints Respiratory Respiratory: Reports no additional respiratory complaints Gastrointestinal Gastrointestinal: Reports no additional gastrointestinal complaints Musculoskeletal Musculoskeletal: Reports arthralgias Physical Exam Vital Signs: Vital Signs: Last Vital Signs Temp 97.1 F 10/30/22 08:00 Pulse 57 10/30/22 08:00 Resp 16 10/30/22 08:00 BP 121/68 10/30/22 08:00 Pulse Ox 100 10/30/22 08:00 O2 Del Method Room Air 10/30/22 08:00 BMI result Body Mass Index 20.8 Middle-aged female lying in bed in no distress Neck supple, no JVD Regular rate and rhythm, S1-S2 heard Regular breath sounds bilaterally, no wheezing or crackles appreciated Abdomen soft nontender, no guarding, no rigidity Patient is awake, alert and oriented to self, place, time and person ; no focal motor deficit Psych: Normal mood No pedal edema Objective Data Active Medications Acetaminophen (Acetaminophen 325 Mg Tablet) 650 mg PO Q6H PRN PRN Reason: Pain, Mild (Pain Scale 1-3) Hydromorphone HCl (Hydromorphone Hcl 1 Mg/Ml Syringe) 1 mg IVPUSH Q4H PRN; Protocol PRN Reason: Pain, Severe (Pain Scale 7-10) Last Admin: 10/30/22 05:05 Dose: 1 mg Documented By: JOSELITO Magnesium Hydroxide (Milk Of Magnesia 30 Ml Oral.Susp) 30 ml PO DAILY PRN PRN Reason: Constipation Melatonin (Melatonin 3 Mg Tablet) 6 mg PO BEDTIME PRN PRN Reason: Insomnia Last Admin: 10/29/22 21:16 Dose: 6 mg Documented By: JOSELITO Ondansetron HCl (Ondansetron Hcl 4 Mg/2 Ml Vial) 4 mg IVPUSH Q8H PRN PRN Reason: Nausea and Vomiting Oxycodone HCl (Oxycodone Hcl Immed Release 5 Mg Tablet) 5 mg PO Q6H PRN PRN Reason: Pain, Severe (Pain Scale 7-10) Last Admin: 10/29/22 23:52 Dose: 5 mg Documented By: JOSELITO Pharmacy Consult (Consult Rx Perform Med Rec) 1 each MISCELLANE ONCE PRN PRN Reason: Consult order Sodium Chloride (0.9 % Sodium Chloride Flush 3 Ml Syringe) [facility] Last Admin: 10/29/22 21:17 Dose: 3 ml Documented By: JOSELITO Labs 10/29/22 06:44 10/29/22 06:44 Assessment and Plan (1) Intractable pain: Status: Acute (2) Lung mass: Status: Acute Plan 52 year old female with he has a 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 Now with pulmonary nodule with pain and is awaiting biopsy and surgical resection Pain related to Pulmonary nodule pain control with dilauid prn, and oxycodone and once pain control discharge to follow up on outpatient basis for biopsy and lung mass resection scheduled for 11/01 at [facility]. Discharge in a.m. Time Spent With Patient Time: Total time managing care of this patient today ____ minutes. Quality Stroke Does the patient have a stroke diagnosis?: No VTE Prior VTE?: No VTE Risk Level:: Medical - moderate - high VTE Device Contraindication: Treatment Not Tolerated VTE Drug Contraindication: N/A - Med Ordered
[2022-10-30] MEDS: 0.9 % Sodium Chloride Flush 3 ML SYRINGE IVFLUSH ×3 (09:05→21:28)
[2022-10-30] MEDS: oxyCODONE HCl Immed Release 5 MG TABLET PO (11:40)
[2022-10-30 15:18] VITALS: BP 111/63; PULSE 60; RESP 16; TEMP 36.5; O2SAT 98
[2022-10-30 19:15] VITALS: BP 109/69; PULSE 58; RESP 17; TEMP 36.3; O2SAT 98
[2022-10-31] MEDS: HYDROmorphone HCl 1 MG/ML SYRINGE IVPUSH ×3 (01:14→08:56)
[2022-10-31 04:00] VITALS: BP 113/64; PULSE 54; RESP 16; TEMP 36; O2SAT 100
[2022-10-31 07:53] VITALS: BP 114/61; PULSE 64; RESP 16; TEMP 36.2; O2SAT 99
[2022-10-31] MEDS: 0.9 % Sodium Chloride Flush 3 ML SYRINGE IVFLUSH (08:04)
--- NOTE | 2022-10-31 08:53 | PM.DS ---
DS: Providers Provider Date of Service: 10/31/22 Date of admission: 10/29/22 13:19 Primary care physician: Ky Lin MD DS: Diagnosis Discharge Diagnosis (1) Intractable pain: Status: Acute (2) Lung mass: Status: Acute DS: Summary Hospital Course Hospital Course: HPI : 52 year old female with he has a history of adenocarcinoma of the rectum in 2020? s/p resection and radiation treatment and is followed by [facility] and is supposed to be in remission; she is followed at [facility].? She has been having a left sided rib area pain and? has had an left lung solitary mass diagnosed? and is supposed to have? surgical resection in this coming tuesday11/01/[address] Rosibel Johnson. She presented? to the ED today because of unbearable pain.? CT chest show?Interval increase in size and left lower lobe nodule along the diaphragmatic pleural surface from 2020 exam now measuring 1.3 cm. Previously identified superior segment left lower lobe nodule no longer seen. ? CT of abdomen show Question mild wall thickening of the distal colon and rectum or mild proctocolitis versus changes due to underdistention.? Her pain is better after dilaudid Hospital course: Patient was admitted for IV pain control related to pulmonary nodule. Patient with improved symptom control prior to discharge. Patient to follow up on outpatient basis for biopsy and lung mass resection scheduled for 11/02 . Status at Discharge Functional status at discharge: independent ambulation Overall status at discharge: patient is back to baseline Time Spent with Patient Time attestation: Total time managing care of this patient today ____ minutes. Discharge coordination time: Less than 30 minutes Quality: Safe Use of Opioids Does Pt have an Active Cancer Diagnosis on the Problem List?: Yes Opioid Measure Date for [facility] Report: 10/01/22 Opioid Measure Time for [facility] Report: 08:58 Quality: Stroke Does the patient have a stroke diagnosis?: No Physical Exam Vital Signs: Vital Signs: Last Vital Signs Temp 97.1 F 10/31/22 07:53 Pulse 64 10/31/22 07:53 Resp 16 10/31/22 07:53 BP 114/61 10/31/22 07:53 Pulse Ox 99 10/31/22 07:53 O2 Del Method Room Air 10/31/22 07:53 BMI result Body Mass Index 20.8 Middle-aged female lying in bed in no distress Neck supple, no JVD Regular rate and rhythm, S1-S2 heard Regular breath sounds bilaterally, no wheezing or crackles appreciated Abdomen soft nontender, no guarding, no rigidity Patient is awake, alert and oriented to self, place, time and person ; no focal motor deficit Psych: Normal mood No pedal edema DS: Data Imaging Chest x-ray: Radiologist's impression: ITS Impressions Abdomen/Pelvis CT 10/29/22 08:08 IMPRESSION: Normal-appearing left kidney. No cause of left flank pain seen. Fatty liver. Stable postsurgical changes to the small bowel. Fatty infiltration of the wall of the colon which is a nonspecific finding but can be seen with old colitis. Question mild wall thickening of the distal colon and rectum or mild proctocolitis versus changes due to underdistention. Clinical correlation recommended. Fleischner guidelines were followed. Chest CT 10/29/22 08:08 IMPRESSION: Interval increase in size and left lower lobe nodule along the diaphragmatic pleural surface from 2020 exam now measuring 1.3 cm. Previously identified superior segment left lower lobe nodule no longer seen. Fleischner guidelines were followed. Discharge Plan Discharge Anticipated Discharge Date/Time: 10/31/22 08:56 Patient Disposition: Home, Self-Care Referrals: Ky Lin MD [Primary Care Provider] - 1 Week Discharge Medications: Continued folic acid 1 mg tablet 1 mg PO DAILY 90 Days Qty: 90 3RF cyanocobalamin (vitamin B-12) 1,000 mcg Tablet 1,000 mcg PO DAILY omeprazole 20 mg capsule,delayed release(DR/EC) 20 mg PO DAILY@0630 oxycodone 10 mg tablet 10 mg PO Q4H PRN (Reason: Breakthrough Pain, Severe) Rx Instructions: Partial Fill upon patient request cholecalciferol (vitamin D3) 50 mcg (2,000 unit) capsule 50 mcg PO FR Discharge Orders: Discharge Order (Routine); Ordered 10/31/22 Ordered By: Floridalma Duenas Diet: Regular diet Activity on Discharge: As tolerated Stand Alone Forms: Patient Portal Discharge page Care Plan Goals: Pain control with p.o. oxycodone p.r.n. Health Concerns: pulmonary nodule Plan of Treatment: biopsy and lung nodule resection scheduled for 11/02 Assessment: as above
--- NOTE | 2022-10-31 09:57 | MHC.CM.PN ---
PT REPORTS SHE LIVES WITH HER S/O AND IS INDEPENDENT WITH CARE PT HAS NO SERVICES AND USES NO DME SHE IS NOT COVID [employer] SHE DECLINES TO COMPLETE A HCP PCP: MICHELLE HAMPTON OBSERVATION NOTICE DELIVERED PT WILL DC HOME TODAY WITH NO SERVICES VIA PRIVATE TRANSPORT
== END 2022-10-31 12:24 | disposition home or self-care (01) ==
LOC: HO.ED 12:28 → HO.EDOVER 13:25 → HO.S3 15:31
PROVIDERS: Admitting Provider Internal Medicine; Emergency Provider Internal Medicine; PCP Internal Medicine; Visit Provider Student in an Organized Health Care Education/Training Program
DX: G89.4 Chronic pain syndrome (principal); R91.8 Other nonspecific abnormal finding of lung field; C19 Malignant neoplasm of rectosigmoid junction; C78.02 Secondary malignant neoplasm of left lung; Z79.899 Other long term (current) drug therapy; Z87.891 Personal history of nicotine dependence
CPT/HCPCS: 36415; 71260; 74177; 80053; 85027; 96374; 96375; 96376; 99221; 99285; J1170; Q9967

== ENCOUNTER 2022-11-30 07:48 | Emergency (ER) | payer OTHER, SELFPAY ==
[2022-11-30 07:52] VITALS: BP 110/80; PULSE 67; RESP 18; TEMP 36.4; O2SAT 98; BMI 15.8
[2022-11-30 08:13] LABS: MANUAL DIFF FLAG NO
[2022-11-30 08:15] LABS: Basophils Percent Auto 0.3 % (0-2); Eosinophils Absolute Auto 0.1 X10*3/uL (0.0-0.4); Eosinophils Percent Auto 3.7 % (0-4); Hematocrit 41.2 % (37.0-47.0); Hemoglobin 13.7 g/dl (12.0-16.0); Imm Gran Abs Auto 0.01 X10*3/uL (0.00-0.03); Imm Gran Pct Auto 0.3 % (0.0-0.4); Lymphocytes Absolute Auto 1.5 X10*3/uL (1.2-4.9); Mean Corpuscular HGB Conc 33.3 g/dl (31.0-35.0); Mean Corpuscular Hemoglobin 32.9 pg (27.0-33.0); Mean Corpuscular Volume 98.8 fL (80.0-98.0); Mean Platelet Volume 9.8 fL (9.4-12.3); Monocytes Absolute Auto 0.2 X10*3/uL (0.1-1.2); Monocytes Percent Auto 6.8 % (2-11); Neutrophils Absolute Auto 1.2 x10*3/uL (2.0-8.3); Neutrophils Percent Auto 39.9 % (45-73); Platelet Count 280 X10*3/uL (160-400); Red Blood Count 4.17 X10*6/uL (4.20-5.50); Red Cell Distribution Width 11.8 % (11.0-16.0)
[2022-11-30 08:29] LABS: Alanine Aminotransferase 38 U/L (0-31); Albumin Level 4.1 g/dL (3.5-5.0); Alkaline Phosphatase 158 U/L (39-117); Anion Gap 15 (12-20); Aspartate Amino Transferase 52 U/L (5-31); Bilirubin Total 0.7 mg/dL (0.0-1.0); Blood Urea Nitrogen 4 mg/dL (9-16); Calcium 9.8 mg/dL (8.4-10.2); Carbon Dioxide 23 mmol/L (22-29); Chloride 108 mmol/L (96-108); Estimated Glomerular Filt Rate > 60; Glucose Random 82 mg/dL (60-115); Potassium 4.3 mmol/L (3.3-5.1); Sodium 142 mmol/L (135-145); Total Protein 7.9 g/dL (6.5-8.0)
--- NOTE | 2022-11-30 09:01 | ED.GENADULT ---
HPI - General Adult General Chief complaint: Abdominal Pain Stated complaint: L flank pain Time Seen by Provider: 11/30/22 09:00 Source: patient Mode of arrival: ambulatory Limitations: no limitations History of Present Illness HPI narrative: Patient is a 52 year old assigned female at with a history of colorectal cancer that mets to the lung presenting to the emergency department today with incisional pain. Patient states that she had a procedure on October 30, 2022, to have a mass removed from her left lower lung. Patient states that it was done at [facility] but it was done by thoracic surgeon Dr. Neil. Patient states that one of the incisions was previously infected and she was on ABX for it that she finished 2 days ago. Patient states that the pain starts where the incisions are and crosses across her abdomen. Patient denies any dizziness, lightheadedness, nausea, vomiting, fever, chills, blurry vision, double vision, loss of vision, chest pain, difficulty breathing, shortness of breath, back pain, night sweats, pain with urination, increased urinary frequency, increased urinary urgency, blood in her urine or stool, syncope or a near syncopal episode, recent trauma or falls, bowel incontinence, bladder incontinence, bowel retention, bladder retention, or any other complaints at this time. Onset (ago): day(s) Location: abdomen and left Radiation: abdomen Severity: mild Severity scale (1-10): 3 Quality: aching and dull Pain Consistency: constant Relieving factors: none Exacerbating factors: none Associated symptoms: denies other symptoms Treatments prior to arrival: other (antibiotics and PO pain medication) Related Data Home Medications Medication Instructions Recorded Confirmed cyanocobalamin (vitamin B-12) 1,000 mcg PO DAILY 01/10/22 11/15/22 1,000 mcg tablet cholecalciferol (vitamin D3) 50 50 mcg PO FR 10/29/22 11/15/22 mcg (2,000 unit) capsule omeprazole 20 mg capsule,delayed 20 mg PO DAILY@0630 10/29/22 11/15/22 release oxycodone 10 mg tablet 10 mg PO Q4H PRN Breakthrough 10/29/22 11/15/22 Pain, Severe Previous Rx's Medication Instructions Recorded folic acid 1 mg tablet 1 mg PO DAILY 90 days #90 tabs 08/26/22 oxycodone 10 mg tablet 10 mg PO Q8H PRN Breakthrough 11/19/22 Pain, Severe #30 tabs oxycodone 10 mg tablet 10 mg PO Q8H PRN pain 3 days #9 11/20/22 tabs oxycodone 10 mg tablet 10 mg PO Q8H PRN Breakthrough 11/23/22 Pain, Severe 10 days #30 tabs oxycodone 10 mg tablet 10 mg PO Q8H PRN Breakthrough 11/23/22 Pain, Severe 10 days #30 tabs Allergies Allergy/AdvReac Type Severity Reaction Status Date / Time gabapentin AdvReac Unknown dizziness, Verified 11/15/22 13:26 lightheadedness ibuprofen AdvReac Unknown nausea and Verified 11/15/22 13:26 vomiting Review of Systems Constitutional: Constitutional: Reports no additional constitutional complaints, Denies chills, Denies fever(s) and Denies night sweats Eyes: Eyes: Reports no additional eye complaints, Denies blurry vision, Denies change in vision, Denies diplopia, Denies eye discharge, Denies loss of vision and Denies eye pain ENT: Denies dizziness Cardiovascular: Cardiovascular: Reports no additional cardiovascular complaints, Denies chest pain, Denies lightheadedness, Denies Loss of Consciousness and Denies dyspnea Respiratory: Respiratory: Reports no additional respiratory complaints and Denies dyspnea Gastrointestinal: Gastrointestinal: Reports no additional gastrointestinal complaints, Reports abdominal pain (left flank, radiates across abdomen), Denies melena, Denies hematochezia, Denies change in bowel habits and Denies change in stool character Genitourinary: Genitourinary: Denies hematuria, Denies urinary frequency, Denies dysuria, Denies urinary incontinence, Denies urinary hesitancy and Denies urinary urgency Musculoskeletal: Musculoskeletal: Reports no additional musculoskeletal complaints, Denies numbness and Denies tingling Neurologic: Denies dizziness, Denies loss of vision, Denies numbness and Denies tingling Psychiatric: Psychiatric: Reports no additional psychiatric complaints Endocrine: Endocrine: Reports no additional endocrine complaints Hematologic/Lymphatic: Hematologic/Lymphatic: Reports no additional hematologic/lymphatic complaints Allergic/Immunologic: Allergic/Immunologic: Reports no additional allergic/immunologic complaints PMFSH Past Medical History Attestation statement: The following information was validated with the patient. Source: old records reviewed and nursing notes reviewed Medical History Adenocarcinoma of rectum (~2020) Chronic pain syndrome Gastroesophageal reflux disease H. 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 Mass of left lung Mass of left lung Perianal dermatitis Personal history of nicotine dependence Rectal cancer (~2020) Sacroiliitis Tubular adenoma Vitamin D deficiency Surgical History History of bursectomy (~2013) History of colonoscopy History of esophagogastroduodenoscopy (EGD) History of hemorrhoidectomy (~2007) History of low anterior resection of rectum (~07/2021) History of nasal polypectomy History of reversal of ileostomy (~12/2021) History of tubal ligation (~1999) S/P anal fissurectomy (~2008) Status post lung surgery Family History Family History Mother Diabetes HTN (hypertension) Father Diabetes Heart attack Brother Diabetes Heart problem HTN (hypertension) Maternal Aunt Breast cancer Sister Uterus cancer Maternal Aunt Breast cancer Mother Lung cancer Social History Social History Household Members: Significant Other Housing: House Are you a primary nursing care partner to a significant other at home: No Do you presently have visiting nurse or other home services: No Alcohol intake: never Patient Tobacco Use Status: Former Tobacco user Quit Date: 2020 Smoked in Last 30 Days: No Use of substances other than those prescribed or required for medical reasons: No Advance Directives: No Advance Directives Information Provided: No Patient : No service: No Current occupational status: unemployed and disabled Cognitive needs: No Hearing needs: No Vision needs: No Physical Exam ED Vital Signs: Vital Signs - 24 hr 11/30/22 07:52 11/30/22 10:21 Temperature 97.5 F Pulse Rate 67 67 Respiratory Rate 18 Blood Pressure 110/80 110/80 Pulse Oximetry 98 98 Oxygen Delivery Method Nasal Cannula BMI result Body Mass Index 15.8 Const General: cooperative, no acute distress, alert and awake Nutritional Appearance: well nourished Orientation/consciousness: patient oriented x3 Limitations: no limitations HENMT Head: Yes normal to inspection and Yes atraumatic Ears: hearing grossly normal bilaterally and external ears normal General nose exam: Normal external nose present, no nasal discharge noted and no epistaxis Face and sinus: Yes normal facial exam, No abrasion and No laceration Mouth: Normal oral and palatal mucosa present, no drooling and no muffled voice Eyes General: appearance normal, both eyes and all related structures Periorbital: periorbital findings normal Eyelids: Yes eyelids normal Conjunctivae: conjunctivae normal Pupils: Equal, round and reactive pupils present EOM: EOMs intact bilaterally Neck Neck: Yes normal visual inspection, Yes full ROM and Yes no lymphadenopathy Chest Other: patient has 3 small surgical incisions to the left chest / flank with no surrounding erythema, swelling, or warmth. No fluctuance felt around the surgical incisions. Resp Effort & Inspection: normal respiratory effort and able to speak in complete sentences GI Palpation (GI): Soft to palpation, not firm, nontender, no guarding and not rigid Neuro General: patient oriented x3 and moves all extremities Cranial nerves: Yes Equal, round and reactive pupils present Cognition (Neuro): normal cognition Motor exam (neuro): 5/5 motor strength present throughout Sensory Exam: Normal double simultaneous stimulation for sensation Coordination: [id number] test normal Extrem General: Yes normal to inspection, Yes full ROM and Yes capillary refill normal Psych Appearance: grossly normal Mental Status: mental status grossly normal Affect: normal affect Attitude: cooperative Thought process: Normal thought process present Thought content: Normal thought content present Insight: Good insight present (Psych) Medications Administered Discontinued Medications Generic Name Dose Route Start Last Admin Trade Name Freq PRN Reason Stop Dose Admin Oxycodone HCl 10 mg 11/30/22 10:32 11/30/22 10:49 Oxycodone Hcl Immed Release 5 Mg Tablet PO 11/30/22 10:33 10 mg ONCE ONE Administration Medical Decision Making Medical Decision Making [facility] Narrative: Patient is a 52 year old assigned female at with a history of colorectal cancer with lung mets and recent lung procedure on 10/30/2022 presenting to the emergency department today with incisional pain. Patient's physical exam was as noted in the physical exam portion of this chart. Patient's blood work was unremarkable. I spoke with Dr. Neil's office who confirmed the patient was receiving pain management from them and her PCP's office. He recommended discharge home with out patient follow up. I explained my physical exam findings as well as all test results to the patient. I answered all questions asked by the patient. Patient requested to stay in the hospital for just 1 night as she feels too weak to go home at this time. Physical therapy was contacted who performed an assessment and had no recommendations. Case management met with the patient and together they determined discharged home was the best option. Patient verbalized agreement and understanding with this treatment plan and discharge. Differential Diagnosis Differential Diagnoses: The differential diagnosis associated with the presentation includes incisional pain, surgical pain Admission/Observation Consideration of admission/observation: Escalation of care including admission/observation considered Patient would have been admitted to the hospital had his work up had any findings where hospital admission was appropriate. Consult Healthcare Provider Management of the patient was discussed with: Export Freight Clerk (Spoke to Dr. Neil as noted in the MDM portion of this chart) Lab Data [facility] Lab Attestation statement: I reviewed the patient's lab results. My interpretation of these studies and their corresponding values is that they are grossly normal. 11/30/22 08:08 11/30/22 08:08 Labs: Lab Results 11/30/22 11/30/22 Range/Units 08:08 08:08 WBC 3.0 L (4.8-10.8) X10*3/uL RBC 4.17 L (4.20-5.50) X10*6/uL Hgb 13.7 (12.0-16.0) g/dl Hct 41.2 (37.0-47.0) % MCV 98.8 H (80.0-98.0) fL MCH 32.9 (27.0-33.0) pg MCHC 33.3 (31.0-35.0) g/dl RDW 11.8 (11.0-16.0) % Plt Count 280 (160-400) X10*3/uL MPV 9.8 (9.4-12.3) fL Immature Gran % (Auto) 0.3 (0.0-0.4) % Neut % (Auto) 39.9 L (45-73) % Lymph % (Auto) 49.0 H (20-40) % Traverse % (Auto) 6.8 (2-11) % Eos % (Auto) 3.7 (0-4) % Baso % (Auto) 0.3 (0-2) % Lymph # (Auto) 1.5 (1.2-4.9) X10*3/uL Traverse # (Auto) 0.2 (0.1-1.2) X10*3/uL Eos # (Auto) 0.1 (0.0-0.4) X10*3/uL Baso # (Auto) 0.0 (0.0-0.2) X10*3/uL Abs Immat Gran (auto) 0.01 (0.00-0.03) X10*3/uL Absolute Neuts (auto) 1.2 L (2.0-8.3) x10*3/uL Absolute Nucleated RBC 0.000 (0.0-0.012) X10*3/uL Nucleated RBC % (auto) 0.0 (0.0-0.2) /100WBC Sodium 142 (135-145) mmol/L Potassium 4.3 (3.3-5.1) mmol/L Chloride 108 (96-108) mmol/L Carbon Dioxide 23 (22-29) mmol/L Anion Gap 15 (12-20) BUN 4 L (9-16) mg/dL Creatinine 0.80 (0.5-1.4) mg/dL Estim Creat Clear Calc 64.0 Estimated GFR > 60 Random Glucose 82 (60-115) mg/dL Calcium 9.8 (8.4-10.2) mg/dL Total Bilirubin 0.7 (0.0-1.0) mg/dL AST 52 H (5-31) U/L ALT 38 H (0-31) U/L Alkaline Phosphatase 158 H (39-117) U/L Total Protein 7.9 (6.5-8.0) g/dL Albumin 4.1 (3.5-5.0) g/dL Discharge Plan Discharge Clinical Impression: Incisional pain Patient Disposition: Home, Self-Care Additional Instructions: Follow up with your primary care provider, your oncologist, and your thoracic surgeon. Return to the emergency department immediately if your symptoms worsen or if you develop any dizziness, shortness of breath, difficulty breathing, chest pain, blurry vision, loss of vision, nausea, vomiting, abdominal pain, fever, chills, back pain, or any other complaints. Prescriptions: No Action folic acid 1 mg tablet 1 mg PO DAILY 90 Days Qty: 90 3RF oxycodone 10 mg tablet 10 mg PO Q8H PRN (Reason: Breakthrough Pain, Severe) Qty: 30 0RF Rx Instructions: Partial Fill upon patient request oxycodone 10 mg tablet 10 mg PO Q8H PRN (Reason: pain) 3 Days Qty: 9 0RF Rx Instructions: [employer] Verified. Partial Fill upon patient request. oxycodone 10 mg tablet 10 mg PO Q8H PRN (Reason: Breakthrough Pain, Severe) 10 Days Qty: 30 0RF Rx Instructions: Partial Fill upon patient request; refill Rx only when due oxycodone 10 mg tablet 10 mg PO Q8H PRN (Reason: Breakthrough Pain, Severe) 10 Days Qty: 30 0RF Rx Instructions: Partial Fill upon patient request; refill Rx only when due cyanocobalamin (vitamin B-12) 1,000 mcg Tablet 1,000 mcg PO DAILY omeprazole 20 mg capsule,delayed release(DR/EC) 20 mg PO DAILY@0630 oxycodone 10 mg tablet 10 mg PO Q4H PRN (Reason: Breakthrough Pain, Severe) Rx Instructions: Partial Fill upon patient request cholecalciferol (vitamin D3) 50 mcg (2,000 unit) capsule 50 mcg PO FR Referrals: Ky Lin MD [Primary Care Provider] - Rosibel Neil MD [Physician] - Interventions: ED Discharge Assessment Last Done: 11/30/22 11:53 Discharge Date/Time: 11/30/22 11:54 Print Language: Icelandic
[2022-11-30 10:21] VITALS: BP 110/80; PULSE 67; O2SAT 98
[2022-11-30] MEDS: oxyCODONE HCl Immed Release 5 MG TABLET 10 MG PO (10:49)
--- NOTE | 2022-11-30 11:10 | MHC.CM.ED ---
Received case management consult from Sumi DICKSON. Patient came to the ER due to flank pain. Work up essentially negative. Patient was going to be discharged home and felt she couldn't safely return home. Physical therapy eval completed. No services are indicated. Met with patient to discuss discharge plan. Patient aware physical therapy feels she can safely go home. Patient agreeable at this time and will arrange a ride home. Sumi DICKSON aware. Continue to monitor for d/c needs.
== END 2022-11-30 11:54 | disposition home or self-care (01) ==
PROVIDERS: Emergency Provider Emergency Medicine; PCP Internal Medicine
DX: G89.18 Other acute postprocedural pain (principal); R10.9 Unspecified abdominal pain; C19 Malignant neoplasm of rectosigmoid junction; C78.02 Secondary malignant neoplasm of left lung; Z87.891 Personal history of nicotine dependence
CPT/HCPCS: 36415; 80053; 85025; 97161; 99284

== ENCOUNTER 2022-12-02 11:45 | Outpatient (AMB) | payer OTHER, SELFPAY ==
[2022-12-02 11:49] VITALS: BP 118/82; PULSE 96; O2SAT 99; BMI 14.6
--- NOTE | 2022-12-02 11:49 | MHC.PC.OV ---
Vital Signs 12/02/22 11:49 Height 5 ft 10 in Weight 102 lb BMI 14.6 BP 118/82 Blood Pressure Location Lt brachial Position Sitting Pulse 96 Pulse Source Pulse Oximeter Pulse Oximetry (%) 99 Oxygen Delivery Method Room Air Intake Visit Reasons: pulmonary nodule, Hx rectal cancer Intake Note: Patient is here to discuss a pulmonary nodule and history of recta cancer. 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 Accompanied by: Self / Same As Patient Allergies gabapentin Adverse Reaction (Unknown, Verified 01/11/23 09:17) dizziness, lightheadedness ibuprofen Adverse Reaction (Unknown, Verified 01/11/23 09:17) nausea and vomiting Medication List - Last Reconciled 12/03/22 by Ky Lin MD cholecalciferol (vitamin D3) 50 mcg PO FR cyanocobalamin (vitamin B-12) 1,000 mcg PO DAILY folic acid 1 mg PO DAILY 90 days omeprazole 20 mg PO DAILY@0630 oxycodone 10 mg PO Q4H PRN oxycodone 10 mg PO Q8H PRN oxycodone 10 mg PO Q8H PRN 3 days oxycodone 10 mg PO Q8H PRN 10 days Tobacco use date assessed: 12/02/22 HPI pulmonary nodule, Hx rectal cancer HPI Details Patient comes in today for her follow up visit She went to the ER a couple of days ago for increasing pain over some of the incision sites on her left thoracic area from her VATS and wedge resection done last month Was also seen over a week ago for some infection of her wounds and just completed Abx Tx a few days ago Work ups done in the ER came back normal - she was reassured and discharged back home with instructions to keep all of her follow up appts as scheduled States that she currently feels okay She denies any headaches or dizziness Denies any chest pains, no shortness of breath No nausea/vomiting, still has on and off abdominal pain over the left lower quadrant area - chronic No change in bowel habits noted Adds that her chronic pains remain adequately controlled on her current medications Needs a couple of her Rx refilled, including her pain medication PFSH Medical History Adenocarcinoma of rectum (~2020) Chronic pain syndrome Gastroesophageal reflux disease H. 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 Mass of left lung Mass of left lung Perianal dermatitis Personal history of nicotine dependence Rectal cancer (~2020) Sacroiliitis Tubular adenoma Vitamin D deficiency Surgical History History of bursectomy (~2013) History of colonoscopy History of esophagogastroduodenoscopy (EGD) History of hemorrhoidectomy (~2007) History of low anterior resection of rectum (~07/2021) History of nasal polypectomy History of reversal of ileostomy (~12/2021) History of tubal ligation (~1999) S/P anal fissurectomy (~2008) Status post lung surgery Family History Mother Diabetes HTN (hypertension) Father Diabetes Heart attack Brother Diabetes Heart problem HTN (hypertension) Maternal Aunt Breast cancer Sister Uterus cancer Maternal Aunt Breast cancer Mother Lung cancer Social History Household Members: Significant Other Housing: House Are you a primary professional healthcare representative to a significant other at home: No Do you presently have visiting nurse or other home services: No Alcohol intake: never Patient Tobacco Use Status: Former Tobacco user Quit Date: 2020 service: No Current occupational status: unemployed and disabled Cognitive needs: No Hearing needs: No Vision needs: No Questionnaire PHQ-9 Over the last 2 weeks, how often have you been bothered by any of the following problems? 1. Little interest or pleasure in doing things: several days 2. Feeling down, depressed, or hopeless: several days 3. Trouble falling or staying asleep, or sleeping too much: several days 4. Feeling tired or having little energy: several days 5. Poor appetite or overeating: several days 6. Feeling bad about yourself - or that you are a failure or have let yourself or your family down: several days 7. Trouble concentrating on things, such as reading the newspaper or watching television: several days 8. Moving or speaking so slowly that other people could have noticed. Or the opposite - being so fidgety or restless that you have been moving around a lot more than usual: several days 9. Thoughts that you would be better off or of hurting yourself in some way: not at all Total score: 8 Depression Screening Interpretation: Positive Depression Screening Follow-up: Existing condition and Follow-up Visit Requested [id number] - PHQ-9 Billing: Yes Source: Developed by Drs. Chilango Rios, Ana Cash, Ziggy Rios and colleagues, with an educational eleuterio from [employer]. Thrive Questionnaire Date Thrive assessed: 12/02/22 I am a: Patient What is your living situation today?: I have a steady place to live Within the past 12 months, did the food you bought not last and you didn't have the money to get more?: Never true Within the past 12 months, did you worry whether your food would run out before you got money to buy more?: Never true Do you have trouble paying for medicines?: No Do you have trouble getting transportation to medical appointments?: No Do you have trouble paying your heating and electricity bill?: No Do you have trouble taking care of your child, family member or friend?: No Do you have trouble with day-to-day activities such as bathing, preparing meals, shopping, managing finances, etc.?: No Are you currently unemployed and looking for a job?: No Are you interested in more education?: No Currently or been in a relationship where the following occur: no concerns reported AUDIT C Alcohol Use Questionnaire (AUDIT-C) 1. How often do you have a drink containing alcohol?: Never 3. How often do you have six or more drinks on one occasion?: Never Total Score: 0 Score Reviewed/Action Taken: Yes TACHO-7 AMB Questionnaire TACHO-7 Date TACHO - 7 assessed: 12/02/22 Feeling nervous, anxious, or on edge: 0 = Not at all Not being able to stop or control worryin = Not at all Worrying too much about different things: 0 = Not at all Trouble relaxin = Not at all Being so restless that it is hard to sit still: 0 = Not at all Becoming easily annoyed or irritable: 0 = Not at all Feeling afraid as if something awful might happen: 0 = Not at all Total TACHO-7 score (0-4 normal; 5-9 mild; 10-14 moderate; 15-21 severe): 0 Source: Developed by Ana Travis Kurt Kroenke and colleagues, with an educational eleuterio from [employer]. Review of Systems Const Denies chills, Reports fatigue, Denies fever(s) and Denies headache(s) ENT Denies dysphagia, Denies dizziness, Denies otalgia, Denies headache(s), Denies odynophagia and Denies sore throat Card Denies chest pain, Denies palpitations and Denies dyspnea Resp Denies cough and Denies dyspnea GI Reports abdominal pain (recurrent sharp pain, especially over the LLQ area), Denies constipation, Denies dysphagia, Denies heartburn, Denies diarrhea, Denies nausea, Denies odynophagia and Denies vomiting Details: c/o deep pelvic pain - S/P low anterior resection of rectum in 07/2021 Denies difficulty voiding, Denies nocturia and Denies dysuria Musc Reports back pain (over the lower back) Neuro Denies dizziness and Denies headache(s) Endo Reports fatigue and Denies palpitations Physical exam (Primary Care) Vital Signs: Last Vital Signs Pulse 96 12/02/22 11:49 BP 118/82 12/02/22 11:49 Pulse Ox 99 12/02/22 11:49 Oxygen Delivery Method Room Air 12/02/22 11:49 BMI result Body Mass Index 14.6 Tobacco/Smoking Status: Tobacco use Status Tobacco use date assessed 12/02/22 12/02/22 11:54 Patient Tobacco Use Status Former Tobacco user 12/02/22 11:54 PHQ-9: PHQ-9 Score PHQ-9: Total score 8 01/18/23 19:15 Depression Screening Interpretation: Positive Depression Screening Follow-up: Existing condition and Follow-up Visit Requested Thrive Assessment: Date of Thrive Assessment Date Thrive assessed 12/02/22 12/02/22 11:54 Currently or been in a relationship where the following occur: no concerns reported Const General: no acute distress and alert HENMT Ears: TM's normal bilaterally and EAC's normal Throat: Yes posterior oropharynx normal and Yes tonsils normal (no TP congestion) Neck Neck: Yes no lymphadenopathy and Yes supple Resp Auscultation: clear to auscultation bilaterally, no rales and no wheezes Cardio Rate: regular rate Rhythm: regular rhythm Heart sounds: no murmurs GI Palpation (GI): Soft to palpation, Tenderness to palpation present (GI) in the LLQ, no guarding, not rigid, No hepatosplenomegaly present, no masses and No Rebound tenderness present Back/Spine/Pelvis Thoracic/Lumbar Spine: lumbar spinal tenderness Extrem General: Yes no clubbing, cyanosis or edema Assessment and Plan Assessment & Plan (1) Mass of left lung: Comment: (1.2 x 1.0 x 1.1cm solid nodule in LLL abutting diaphragmatic pleura - SUVmax 1.1 - on PET 09/07/22) Code(s): R91.8 - Other nonspecific abnormal finding of lung field Plan: Was first seen incidentally on abdominal and pelvic CT done in July [address] done on 09/07/2022 confirmed the 1.5 cm left lower lobe lung mass with weak FDG activity, suspicious for malignancy Is S/P VATS and wedge resection with thoracic surgery last month but ended up with some post-op infection of her wounds - infection has since resolved with Abx Tc Follow up with thoracic surgery as scheduled (2) Rectal cancer: Onset Date: ~2020 Comment: (Invasive Adenocarcinoma, mod diff - s/p resection 07/31/21, radiation and Xeloda) Code(s): C20 - Malignant neoplasm of rectum Plan: S/P surgical (low anterior) resection and loop ileostomy by Dr. Hackett at [facility] in [place] on 07/31/2021; later underwent ileostomy reversal on 01/08/2022 also at [facility] She completed radiation therapy and Xeloda and is now on modified FOLFOX 6 Follow up with oncology (Dr. Macdonald) as scheduled States that she had her last follow up appt with Dr. Hackett in [place] back in October 2022 (3) Lumbar back pain with radiculopathy affecting left lower extremity: Code(s): M54.16 - Radiculopathy, lumbar region Plan: Reinforced activity and weight-lifting restrictions Was seeing Pain Management for follow-up previously and was considering other treatment options, including intrathecal delivery system, but these were all put on hold when she was diagnosed with rectal cancer a couple of years ago She had an appointment with Dr. Aguilar on 06/29/22 but she reportedly overslept and missed her appt then and has not been back to see pain management since Continue Oxycodone 10 mg Q 8 hours PRN for now - Rx refilled (4) Gastroesophageal reflux disease: Code(s): K21.9 - Gastro-esophageal reflux disease without esophagitis Qualifiers: Esophagitis presence: esophagitis presence not specified Qualified Code(s): K21.9 - Gastro-esophageal reflux disease without esophagitis Plan: Dietary restrictions reinforced Continue Omeprazole 20 mg QD (5) Vitamin D deficiency: Code(s): E55.9 - Vitamin D deficiency, unspecified Plan: Continue Vitamin D3 2000 units QD (6) Anxiety: Code(s): F41.9 - Anxiety disorder, unspecified Plan: Continue Hydroxyzine 25 mg BID PRN Plan Follow up in 3 months Medications: Discontinued omeprazole 20 mg PO DAILY 30 caps 4RF K21.9 - Gastro-esophageal reflux disease without esophagitis oxycodone Partial Fill upon patient request 10 mg PO Q8H PRN 30 tabs 0RF Breakthrough Pain, Severe cholecalciferol (vitamin D3) 50 mcg PO DAILY 30 caps 3RF R79.89 - Other specified abnormal findings of blood chemistry Coding Level of Care Code Est Pt Level 3 (98506) Diagnoses Mass of left lung R91.8 Rectal cancer C20 Lumbar back pain with radiculopathy affecting left lower extremity M54.16 Gastroesophageal reflux disease K21.9 Esophagitis presence: esophagitis presence not specified Vitamin D deficiency E55.9 Anxiety F41.9
== END 2022-12-02 12:29 | disposition home or self-care (01) ==
LOC: HO.HMGH 11:45
PROVIDERS: PCP Internal Medicine; Visit Provider Internal Medicine
DX: R91.8 Other nonspecific abnormal finding of lung field (principal); C20 Malignant neoplasm of rectum; M54.16 Radiculopathy, lumbar region; K21.9 Gastro-esophageal reflux disease without esophagitis; E55.9 Vitamin D deficiency, unspecified; F41.9 Anxiety disorder, unspecified
CPT/HCPCS: 99213

== ENCOUNTER 2023-02-03 06:47 | Day surgery (SDC) | payer OTHER, SELFPAY ==
--- NOTE | ~2023-02-03 | IR_ITS ---
PROCEDURE: IR INSERTION OF TUNNEL CATHETER CLINICAL INFORMATION: Access for chemotherapy secondary to history of rectal cancer COMPARISON: The chest CT dated 10/29/2022 was reviewed After informed written consent was obtained an official timeout was performed immediately prior to the procedure. I was personally responsible for the administration of moderate sedation services, all requirements were followed, an independent trained observer was utilized. TECHNIQUE: All elements of maximal sterile barrier technique followed including use of cap, mask, sterile gown, sterile gloves, a sterile full body drape and hand hygiene. Also followed skin preparation with 2% chlorhexidine for cutaneous antisepsis, and sterile ultrasound preparation with sterile gel and probe cover when applicable. FINDINGS: Under ultrasound guidance a micropuncture needle was placed into the right internal jugular vein. A guidewire and catheter were advanced into the right atrium. A 6 Salvadorean peel-away sheath was advanced into the SVC. A subcutaneous pocket was then created along the anterior chest wall. A 6 Salvadorean port was secured in the subcutaneous tissue. The 6 Salvadorean catheter was tunneled beneath the skin surface and subsequently through the peel-away sheath into the midportion of the right atrium. The port was accessed and flushed with heparinized saline. Heparin was then instilled. 3-0 subcutaneous Vicryl sutures were placed followed by 4-0 running suture to close the skin wound. IR/IR cvc insert tunnel w prt/autocad detailer IMPRESSION: Placement of a 6 Salvadorean port a catheter via the right internal jugular approach.
[2023-02-03 07:31] LABS: INTERNATIONAL NORM RATIO 0.9 (0.9-1.1); Prothrombin Time 11.1 SEC (11.1-13.3)
[2023-02-03 07:34] LABS: Partial Thromboplastin Time 26.9 SEC (26.0-36.4)
[2023-02-03 10:45] VITALS: BP 112/68; PULSE 75; RESP 18; TEMP 36.6; O2SAT 99
[2023-02-03 11:00] VITALS: BP 114/70; PULSE 59; RESP 18; O2SAT 99
[2023-02-03 11:15] VITALS: BP 107/50; PULSE 67; RESP 18; O2SAT 99
[2023-02-03 11:30] VITALS: BP 105/62; PULSE 65; RESP 18; TEMP 36.4; O2SAT 99
== END 2023-02-03 11:44 | disposition home or self-care (01) ==
LOC: HO.SSS 06:47
PROVIDERS: PCP Internal Medicine; Visit Provider Radiology Vascular & Interventional Radiology
DX: Z45.2 Encounter for adjustment and management of vascular access device (principal); C20 Malignant neoplasm of rectum; C78.02 Secondary malignant neoplasm of left lung; Z93.3 Colostomy status; Z79.899 Other long term (current) drug therapy; Z88.8 Allergy status to other drugs, medicaments and biological substances; Z87.891 Personal history of nicotine dependence
CPT/HCPCS: 36415; 36561; 76937; 85610; 85730; 99152; 99153; C1769; C1788; J0690; J1642; J2250; J3010

== ENCOUNTER → 2023-02-03 07:37 | Outpatient (BNV) | payer OTHER, SELFPAY | PROVIDERS: PCP Internal Medicine; Visit Provider Radiology Vascular & Interventional Radiology | DX: C20 Malignant neoplasm of rectum (principal) | CPT/HCPCS: 36561; 76937 ==

== ENCOUNTER 2023-02-04 06:57 | Outpatient (REF) | payer OTHER, SELFPAY ==
--- NOTE | ~2023-02-04 | CT_ITS ---
EXAMINATION: CT CHEST, ABDOMEN AND PELVIS WITH CONTRAST CLINICAL INFORMATION: Rectal cancer; follow-up pulmonary nodule. COMPARISON: Prior CT examinations, most recently 10/29/2022. TECHNIQUE: Multidetector volumetric imaging was performed from the thoracic inlet through the pubic symphysis following administration of 85 mL Omnipaque 350 intravenous contrast. Sagittal and coronal reformatted images were obtained on the technologist workstation. This CT examination was performed using dose optimization techniques as appropriate, variously including the following: *Automated exposure control. *Adjustment of mA and/or kV according to patient size (this includes techniques or standardized protocols for targeted exams where dose is matched to indication/reason for exam, i.e., extremities or head). *Use of iterative reconstruction technique. DLP: 270 mGy-cm. FINDINGS: CHEST: LUNGS: The lungs are clear with no evidence of inflammation or nodules. There is left base postoperative scarring. MEDIASTINUM: The mediastinum is normal. Central vascular structures are unremarkable. No hilar or mediastinal lymphadenopathy. PERICARDIUM/PLEURA: There is no significant effusion. No pleural mass or thickening. CHEST WALL/AXILLA: Unremarkable. A right internal jugular Port-A-Cath device is seen. ABDOMEN/PELVIS: LIVER, GALLBLADDER, BILIARY TREE: The liver is normal in size, shape, and generally diminished in attenuation. No focal hepatic lesion or biliary ductal dilatation is present. The gallbladder is unremarkable with no evidence of radiopaque gallstones, gallbladder wall thickening, or pericholecystic inflammatory changes. PANCREAS: Unremarkable. SPLEEN: Unremarkable. ADRENAL GLANDS: Unremarkable. KIDNEYS AND URETERS: The kidneys are normal in size, shape, and attenuation. No hydronephrosis or hydroureter or calculi seen. No perinephric stranding. BLADDER: Decompressed and otherwise unremarkable. GASTROINTESTINAL TRACT: No obstruction, free air or abscess is seen. There is a patent ileocolic anastomotic staple line. The appendix is normal. There is equivocal wall thickening of the ascending colon, versus underdistention. No significant diverticulosis or colitis is seen. There is persistent presacral fat stranding. ABDOMINAL WALL: No significant hernia is demonstrated. LYMPH NODES: Normal. VASCULAR: Unremarkable. PELVIC VISCERA: The uterus and adnexa are unremarkable. Tubal ligation clips are noted. OSSEOUS STRUCTURES: Unremarkable. CT/CT abdomen pelvis w IV con IMPRESSION: 1. There is left base postoperative scarring, without residual or recurrent lesion noted. 2. No mass, nodule, infiltrate or groundglass opacity is seen. 3. There is no thoracic lymphadenopathy or pleural effusion. 4. There is hepatic steatosis. 5. There is a patent ileocolic anastomotic staple line. Please correlate with the patient's past surgical history. There is equivocal wall thickening of the ascending colon, versus pseudothickening due to underdistention. Please correlate clinically. If of continued clinical concern, this can be further evaluated with a barium enema or endoscopy. 6. No abdominopelvic lymphadenopathy or ascites is seen. 7. Osseous structures are unremarkable.
[2023-02-04] MEDS: Barium Sulfate Oral (Mocha) 450 ML ORAL.SUSP 900 ML PO (10:22)
[2023-02-04] MEDS: iohexoL 350 MG/ML 100 ML INFUS..BTL 85 ML IV (10:23)
== END 2023-02-04 06:58 | disposition home or self-care (01) ==
LOC: HO.CT 06:57
PROVIDERS: Visit Provider Internal Medicine Medical Oncology
DX: C20 Malignant neoplasm of rectum (principal)
CPT/HCPCS: 71260; 74177; Q9967

== ENCOUNTER 2023-03-04 09:42 | Outpatient (AMB) | payer OTHER, SELFPAY ==
[2023-03-04 09:55] VITALS: BP 110/70; PULSE 71; O2SAT 100; BMI 19.1
--- NOTE | 2023-03-04 09:55 | MHC.OFFVIS ---
Intake Vital Signs 03/04/23 09:55 Height 5 ft 1 in Weight 101 lb BMI 19.1 BP 110/70 Blood Pressure Location Lt brachial Position Sitting Pulse 71 Pulse Oximetry (%) 100 Intake Visit Reasons: 3 month follow up Allergies gabapentin Adverse Reaction (Unknown, Verified 03/04/23 09:56) dizziness, lightheadedness ibuprofen Adverse Reaction (Unknown, Verified 03/04/23 09:56) nausea and vomiting Medication List - Last Reconciled 03/04/23 by Rosibel Neil MD cholecalciferol (vitamin D3) 50 mcg PO FR cyanocobalamin (vitamin B-12) 1,000 mcg PO DAILY folic acid 1 mg PO DAILY 90 days megestrol 800 mg (20 mL) PO DAILY omeprazole 20 mg PO DAILY@0630 ondansetron 8 mg PO Q8H oxycodone 10 mg PO Q4H PRN oxycodone 10 mg PO Q8H PRN 10 days oxycodone ER (OxyContin) 20 mg PO Q12H HPI 3 month follow up HPI Details 52-year-old woman former smoker who has a history of rectal cancer rese cted with a low an terior resection i n 07/31/2021 and has also gotten chemo therapy and radiat ion. She has been followed with ser ial CT scans most recently on which was comp ared with a CT sca n from January. This scan sh ows a 1.5 x 1.3 pu lmonary nodule smo oth bordered in th e basilar left low er lobe on the sinai phragm. Looking b ack at her previou s CT scan there wa s a very small nod ule in this area m easuring to me abo ut 7 mm or less in maximal dimension . Quite appropria tely, she then get a PET scan on 08/25 which showe d minimal uptake i n the left lower l obe pulmonary nodu le SUV max of 1.1. At that point sh rich underwent a Eliseo nci left lower lob e wedge resection and lymph node dis section which she tolerated really w ell done on . She has sinc e started chemothe rapy and had a CT scan of the chest abdomen pelvis on 02/04/2023. In the chest this shows no evidence of rec urrence or new dis ease. No evidence of recurrence or new disease elsewh ere either. She t ells me she has 3 more chemotherapy sessions left. He r appetite has bee n much improved si nce starting Megac e. She reports fe miguel angel currently in good health and d enies unintentiona l weight loss, dec reased appetite, f amauri chills, or s oaking sweats. Sh e denies chest nalini n although occasio john does have so me left-sided stic ricki pain she call s it. She reports some shortness of breath but can go easily up a fligh t of stairs withou t stopping and can go easily a coupl e blocks without s topping. She florencio es cough or hemopt ysis. She denies any new neurologic symptoms but she does have some num bness or weakness and neuropathy lik max from the chemo therapy. Other th an above, 12 point review of systems was done and docu mented separately in the office [facility] with detailed so cial and family hi story. FOR[facility]LY [facility], [facility] Medical History Rectal cancer metastasized to lung (~2020) Mass of left lung Intractable pain Personal history of nicotine dependence Perianal dermatitis Vitamin D deficiency Gastroesophageal reflux disease Tubular adenoma H. pylori infection Chronic pain syndrome Sacroiliitis Lumbar back pain with radiculopathy affecting left lower extremity Surgical History History of lung surgery (~2022) History of colonoscopy History of tubal ligation (~1999) History of hemorrhoidectomy (~2007) History of low anterior resection of rectum (~07/2021) History of reversal of ileostomy (~12/2021) S/P anal fissurectomy (~2008) History of bursectomy (~2013) History of nasal polypectomy History of esophagogastroduodenoscopy (EGD) Family History Mother Diabetes HTN (hypertension) Father Diabetes Heart attack Brother Diabetes Heart problem HTN (hypertension) Maternal Aunt Breast cancer Sister Uterus cancer Maternal Aunt Breast cancer Mother Lung cancer Social History Household Members: Significant Other Housing: House Are you a primary career development engineer to a significant other at home: No Do you presently have visiting nurse or other home services: No Alcohol intake: never Patient Tobacco Use Status: Former Tobacco user Quit Date: 2020 service: No Current occupational status: unemployed and disabled Cognitive needs: No Hearing needs: No Vision needs: No Physical Exam Vital Signs: Last Vital Signs Pulse 71 03/04/23 09:55 BP 110/70 03/04/23 09:55 Pulse Ox 100 03/04/23 09:55 BMI result Body Mass Index 19.1 General: No acute distress HEENT: Moist mucous membranes, normocephalic, pupils equal round and reactive to light. Neck: No thyromegaly, supple, no JVD Lymph: No cervical, supraclavicular, or other lymphadenopathy Chest: No chest wall abnormalities or deformities wounds are all well healed Heart: Regular rate and rhythm Lungs: Clear to auscultation bilaterally Abdomen: Soft, nontender, normal bowel sounds Extremities: No edema, cyanosis, or clubbing. Full range of motion Neuro: Grossly intact, alert and oriented x3, and nonfocal Skin: Warm and dry no rashes Affect: Normal Assessment & Plan Assessment & Plan (1) Rectal cancer metastasized to lung: Onset Date: ~2020 Comment: (Adenocarcinoma - s/p resection 07/31/21, radiation and Xeloda - met to lung s/p LLL wedge 10/2022) Code(s): C20 - Malignant neoplasm of rectum; C78.00 - Secondary malignant neoplasm of unspecified lung Plan: 52-year-old woman with oligometastatic disease from rectal cancer resected with a lymph node dissection on 11/04/2022 doing well from a clinical standpoint and currently getting chemotherapy. From this point forward she can follow up with her oncologist which is Dr. Macdonald and any further issues that need thoracic surgical attention either Dr. Macdonald or she can call me for any additional follow-up. (2) Adenocarcinoma of rectum: Onset Date: ~2020 Comment: (Invasive Adenocarcinoma - s/p resection 07/31/21, radiation and Xeloda - met to lung s/p LLL wedge 10/2022) Code(s): C20 - Malignant neoplasm of rectum Coding Level of Care Code Est Pt Level 4 (58462) Diagnoses Rectal cancer metastasized to lung C20; C78.00 Adenocarcinoma of rectum C20
== END 2023-03-04 10:32 | disposition home or self-care (01) ==
PROVIDERS: PCP Internal Medicine; Visit Provider Surgery
DX: C20 Malignant neoplasm of rectum (principal); C78.00 Secondary malignant neoplasm of unspecified lung

== ENCOUNTER → 2023-03-04 09:42 | Outpatient (BNVA) | payer OTHER, SELFPAY | PROVIDERS: PCP Internal Medicine; Visit Provider Surgery | DX: C20 Malignant neoplasm of rectum (principal); C78.02 Secondary malignant neoplasm of left lung; Z92.21 Personal history of antineoplastic chemotherapy; Z92.3 Personal history of irradiation | CPT/HCPCS: 99212 ==

== ENCOUNTER 2023-03-17 12:45 | Outpatient (AMB) | payer OTHER, SELFPAY ==
--- NOTE | 2023-03-17 12:46 | A.OFFVIS_ITS ---
Intake Vital Signs 03/17/23 12:54 Height 5 ft 1 in Weight 105 lb BMI 19.8 BP 121/73 Blood Pressure Location Rt brachial Position Sitting Pulse 75 Intake Visit Reasons: rectal discomfort Intake Note: This patient presents for an assessment for rectal discomfort, history colon carcinoma. Patient c/o; reports no new medications within the past 3 months, reports starting chemo 01/2023 has completed 3 sessions every 2 weeks and has 3 more sessions to be completed, reports having an episode of rectal bleeding when wiped, reports soreness on the rectum, reports has sensation to have a bowel movement but when sits in the toilet the stool is still in the rectum and has not passed completely, denies rectal pressure. 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 Accompanied by: Self / Same As Patient Allergies gabapentin Adverse Reaction (Unknown, Verified 03/17/23 12:55) dizziness, lightheadedness ibuprofen Adverse Reaction (Unknown, Verified 03/17/23 12:55) nausea and vomiting Medication List - Last Reconciled 03/17/23 by Max Frye MD cholecalciferol (vitamin D3) 50 mcg PO FR cyanocobalamin (vitamin B-12) 1,000 mcg PO DAILY folic acid 1 mg PO DAILY 90 days megestrol 800 mg (20 mL) PO DAILY omeprazole 20 mg PO DAILY@0630 ondansetron 8 mg PO Q8H oxycodone 10 mg PO Q4H PRN oxycodone 10 mg PO Q8H PRN 10 days oxycodone ER (OxyContin) 20 mg PO Q12H HPI rectal discomfort HPI Details She is here for follow-up after very low anterior section. This was done in [facility] last July, for a low-lying rectal adenocarcinoma. She had neoadjuvant chemotherapy and radiation prior. She had her diverting loop ileostomy reversed in Oct, 2021. She was diagnosed to have lung metastasis and underwent wedge resection in Oct, 2022. She is currently undergoing adjuvant chemotherapy with Dr. Macdonald She has complaints of perianal burning. She says that she has had difficulty with control of her bowel movements. She states that she cannot really and differentiate between urgency for stools or flatus anymore. She often times would pass stools without meaning to. As a result, she says she has had significant perianal burning from irritation. She otherwise says that she has good oral intake and has gained weight. He has remained active as best as she can.. 52-year-old female here because of her c oncerns about a ?hemorrhoid . She had been diagnosed to have a low-lying rectal cancer in 2020. She underwent neoadjuvant chemotherapy and radiation followed by a low anterior section. She had her diverting loop ileostomy reversed last December, Since that time, she says that she has had multiple bowel movements every day. This would be about 3 bowel movements a day to almost 10 sometimes. She would frequently have urgency with her bowel movements. She says that most often, she would have loose stools. She says that since then therefore she has had this chronic irritation around her anus. She describes burning sensation around her anus for many months now. She also says that she would see small amounts of blood on wiping. [facility] [place] Medical History Rectal cancer metastasized to lung (~2020) Mass of left lung Intractable pain Personal history of nicotine dependence Perianal dermatitis Vitamin D deficiency Gastroesophageal reflux disease Tubular adenoma H. pylori infection Chronic pain syndrome Sacroiliitis Lumbar back pain with radiculopathy affecting left lower extremity Surgical History History of lung surgery (~2022) History of colonoscopy History of tubal ligation (~1999) History of hemorrhoidectomy (~2007) History of low anterior resection of rectum (~07/2021) History of reversal of ileostomy (~12/2021) S/P anal fissurectomy (~2008) History of bursectomy (~2013) History of nasal polypectomy History of esophagogastroduodenoscopy (EGD) Family History Mother Diabetes HTN (hypertension) Father Diabetes Heart attack Brother Diabetes Heart problem HTN (hypertension) Maternal Aunt Breast cancer Sister Uterus cancer Maternal Aunt Breast cancer Mother Lung cancer Social History Household Members: Significant Other Housing: House Are you a primary child care supervisor to a significant other at home: No Do you presently have visiting nurse or other home services: No Alcohol intake: never Patient Tobacco Use Status: Former Tobacco user Quit Date: 2020 service: No Current occupational status: unemployed and disabled Cognitive needs: No Hearing needs: No Vision needs: No Review of Systems Const Denies chills and Denies fever(s) Card Denies chest pain, Denies dyspnea and Denies dyspnea on exertion Resp Denies cough, Denies dyspnea and Denies dyspnea on exertion GI Reports hematochezia Denies hematuria Musc Denies back pain and Denies limited range of motion Neuro Denies focal weakness and Denies convulsions Psych Denies depression and Denies mood swings Physical Exam Vital Signs: Last Vital Signs Pulse 75 03/17/23 12:54 BP 121/73 03/17/23 12:54 BMI result Body Mass Index 19.8 Const General: comfortable and no acute distress Resp Effort & Inspection: normal respiratory effort Cardio Rate: regular rate GI Other: Rectal exam shows significant perianal skin superficial breakdown with chronic radiation changes as well, no palpable masses Palpation (GI): Soft to palpation, not firm, nontender and no guarding Assessment & Plan Assessment & Plan (1) Rectal cancer metastasized to lung: Onset Date: ~2020 Comment: (Adenocarcinoma - s/p resection 07/31/21, radiation and Xeloda - met to lung s/p LLL wedge 10/2022) Code(s): C20 - Malignant neoplasm of rectum; C78.00 - Secondary malignant neoplasm of unspecified lung Plan: She had a very low anterior resection for rectal cancer. She had lung wedge resection last Oct, 2022 for metastatic disease She is currently on adjuvant chemotherapy with FOLFIRI and Avastin. Her main complaint is perianal pain and burning. Examination shows significant dermatitic changes from irritation with her bowel movements as well as from her previous radiation I will prescribe her Calmoseptine for this She also wants a stool softeners as she says that her stools her actually much more formed now and often times hard. She is to continue to follow-up with Dr. Macdonald of Oncology for her adjuvant chemotherapy. I can continue to follow her in the office as well on a p.r.n. basis. Coding Level of Care Code Est Pt Level 3 (07214) Diagnoses Rectal cancer metastasized to lung C20; C78.00
[2023-03-17 12:54] VITALS: BP 121/73; PULSE 75; BMI 19.8
== END 2023-03-17 13:08 | disposition home or self-care (01) ==
PROVIDERS: PCP Internal Medicine; Visit Provider Surgery
DX: C20 Malignant neoplasm of rectum (principal); C78.00 Secondary malignant neoplasm of unspecified lung
CPT/HCPCS: 99213

== ENCOUNTER → 2023-03-17 12:45 | Outpatient (BNVA) | payer OTHER, SELFPAY | PROVIDERS: PCP Internal Medicine; Visit Provider Surgery | DX: C20 Malignant neoplasm of rectum (principal); C78.00 Secondary malignant neoplasm of unspecified lung; K62.89 Other specified diseases of anus and rectum | CPT/HCPCS: 99212 ==

== ENCOUNTER 2023-03-21 10:33 | Emergency (ER) | payer OTHER, SELFPAY ==
--- NOTE | ~2023-03-21 | XR_ITS ---
EXAMINATION: XR CHEST CLINICAL INFORMATION: Congestive, cough. History of rectal cancer. COMPARISON: CT chest 01/25/2023. Chest radiograph 01/11/2022. TECHNIQUE: 2 views of the chest were obtained. FINDINGS: Right-sided chest port with the tip overlying the region of the cavoatrial junction. Normal heart size. Again noted postoperative changes in the left lower lobe. No new focal airspace opacity, pleural effusion or pneumothorax. No acute osseous findings. Visualized upper abdomen is within normal limits. XR/XR chest 2V IMPRESSION: 1. No acute cardiopulmonary findings. 2. Stable postoperative changes in the left lower lobe. In this patient with a history of rectal cancer, further evaluation with a CT chest could be obtained if clinically deemed appropriate following oncology guidelines.
[2023-03-21 11:03] VITALS: BP 129/74; PULSE 80; RESP 16; TEMP 36.7; O2SAT 100; BMI 20.2
--- NOTE | 2023-03-21 11:06 | ED_ITS ---
HPI - General Adult General Chief complaint: Upper Respiratory Symptoms Stated complaint: congestion Time Seen by Provider: 03/21/23 16:36 Source: patient Mode of arrival: ambulatory Limitations: no limitations History of Present Illness HPI narrative: Patient is a 52 year old assigned female at with a history of colon cancer presenting to the emergency department today with congestion. Patient states that she has had nasal congestion and a cough for the last 5 days. Patient denies any dizziness, lightheadedness, abdominal pain, nausea, vomiting, fever, chills, blurry vision, double vision, loss of vision, chest pain, difficulty breathing, shortness of breath, back pain, night sweats, pain with urination, increased urinary frequency, increased urinary urgency, blood in her urine or stool, syncope or a near syncopal episode, recent trauma or falls, bowel incontinence, bladder incontinence, bowel retention, bladder retention, or any other complaints at this time. Onset (ago): day(s) (5) Severity: mild Relieving factors: none Exacerbating factors: none Associated symptoms: denies other symptoms Treatments prior to arrival: none Related Data Home Medications Medication Instructions Recorded Confirmed cyanocobalamin (vitamin B-12) 1,000 mcg PO DAILY 01/10/22 03/17/23 1,000 mcg tablet cholecalciferol (vitamin D3) 50 50 mcg PO FR 10/29/22 03/17/23 mcg (2,000 unit) capsule omeprazole 20 mg capsule,delayed 20 mg PO DAILY@0630 10/29/22 03/17/23 release oxycodone 10 mg tablet 10 mg PO Q4H PRN Breakthrough 10/29/22 03/17/23 Pain, Severe Previous Rx's Medication Instructions Recorded ondansetron 8 mg disintegrating 8 mg PO Q8H #60 tabs 01/28/23 tablet megestrol 400 mg/10 mL (40 mg/mL) 800 mg (20 mL) PO DAILY #600 mL 02/08/23 oral suspension folic acid 1 mg tablet 1 mg PO DAILY 90 days #90 tabs 03/04/23 oxycodone 10 mg tablet 10 mg PO Q8H PRN Breakthrough 03/15/23 Pain, Severe 10 days #30 tabs docusate sodium 100 mg capsule 100 mg PO BID #60 caps 03/17/23 (Colace) menthol 0.44 %-zinc oxide 20.6 % 1 appl topical QID PRN perianal 03/17/23 topical ointment (Calmoseptine) skin irritation #113 grams oxycodone 20 mg tablet,crush 20 mg PO Q12H #60 tabs 03/21/23 resistant,extended release 12 hr (OxyContin) Allergies Allergy/AdvReac Type Severity Reaction Status Date / Time gabapentin AdvReac Unknown dizziness, Verified 03/17/23 12:55 lightheadedness ibuprofen AdvReac Unknown nausea and Verified 03/17/23 12:55 vomiting Review of Systems Constitutional: Constitutional: Reports no additional constitutional complaints, Denies chills, Denies fever(s) and Denies night sweats Eyes: Eyes: Reports no additional eye complaints, Denies blurry vision, Denies change in vision, Denies diplopia, Denies eye discharge, Denies loss of vision and Denies eye pain ENT: Denies dizziness and Reports nasal congestion Cardiovascular: Cardiovascular: Reports no additional cardiovascular complaints, Denies chest pain, Denies lightheadedness, Denies Loss of Consciousness and Denies dyspnea Respiratory: Respiratory: Reports no additional respiratory complaints, Reports cough and Denies dyspnea Gastrointestinal: Gastrointestinal: Reports no additional gastrointestinal complaints, Denies abdominal pain, Denies melena, Denies hematochezia, Denies change in bowel habits and Denies change in stool character Genitourinary: Genitourinary: Denies hematuria, Denies urinary frequency, Denies dysuria, Denies urinary incontinence, Denies urinary hesitancy and Denies urinary urgency Musculoskeletal: Musculoskeletal: Reports no additional musculoskeletal complaints, Denies numbness and Denies tingling Neurologic: Denies dizziness, Denies loss of vision, Denies numbness and Denies tingling Psychiatric: Psychiatric: Reports no additional psychiatric complaints Endocrine: Endocrine: Reports no additional endocrine complaints Hematologic/Lymphatic: Hematologic/Lymphatic: Reports no additional hematologic/lymphatic complaints Allergic/Immunologic: Allergic/Immunologic: Reports no additional allergic/immunologic complaints PMFSH Past Medical History Attestation statement: The following information was validated with the patient. Source: old records reviewed and nursing notes reviewed Medical History Rectal cancer metastasized to lung (~2020) Mass of left lung Intractable pain Personal history of nicotine dependence Perianal dermatitis Vitamin D deficiency Gastroesophageal reflux disease Tubular adenoma H. pylori infection Chronic pain syndrome Sacroiliitis Lumbar back pain with radiculopathy affecting left lower extremity Surgical History History of lung surgery (~2022) History of colonoscopy History of tubal ligation (~1999) History of hemorrhoidectomy (~2007) History of low anterior resection of rectum (~07/2021) History of reversal of ileostomy (~12/2021) S/P anal fissurectomy (~2008) History of bursectomy (~2013) History of nasal polypectomy History of esophagogastroduodenoscopy (EGD) Family History Family History Mother Diabetes HTN (hypertension) Father Diabetes Heart attack Brother Diabetes Heart problem HTN (hypertension) Maternal Aunt Breast cancer Sister Uterus cancer Maternal Aunt Breast cancer Mother Lung cancer Social History Social History Household Members: Significant Other Housing: House Are you a primary care associate to a significant other at home: No Do you presently have visiting nurse or other home services: No Alcohol intake: never Patient Tobacco Use Status: Former Tobacco user Quit Date: 2020 Advance Directives: No Advance Directives Information Provided: Yes service: No Current occupational status: unemployed and disabled Cognitive needs: No Hearing needs: No Vision needs: No Physical Exam ED Vital Signs: Vital Signs - 24 hr 03/21/23 11:03 Temperature 98.0 F Pulse Rate 80 Respiratory Rate 16 Blood Pressure 129/74 Pulse Oximetry 100 Oxygen Delivery Method Room Air BMI result Body Mass Index 20.2 Const General: cooperative, no acute distress, alert and awake Nutritional Appearance: well nourished Orientation/consciousness: patient oriented x3 Limitations: no limitations HENMT Head: Yes normal to inspection and Yes atraumatic Ears: hearing grossly normal bilaterally and external ears normal General nose exam: Normal external nose present, no nasal discharge noted and no epistaxis Face and sinus: Yes normal facial exam, No abrasion and No laceration Mouth: Normal oral and palatal mucosa present, no drooling and no muffled voice Eyes General: appearance normal, both eyes and all related structures Periorbital: periorbital findings normal Eyelids: Yes eyelids normal Conjunctivae: conjunctivae normal Pupils: Equal, round and reactive pupils present EOM: EOMs intact bilaterally Neck Neck: Yes normal visual inspection, Yes full ROM and Yes no lymphadenopathy Chest Chest palpation & inspection: normal inspection of the chest Resp Effort & Inspection: normal respiratory effort and able to speak in complete sentences GI Inspection: Yes normal to inspection Neuro General: patient oriented x3 and moves all extremities Cranial nerves: Yes Equal, round and reactive pupils present Cognition (Neuro): normal cognition Motor exam (neuro): 5/5 motor strength present throughout Sensory Exam: Normal double simultaneous stimulation for sensation Coordination: [id number] test normal Extrem General: Yes normal to inspection, Yes full ROM and Yes capillary refill normal Psych Appearance: grossly normal Mental Status: mental status grossly normal Affect: normal affect Attitude: cooperative Thought process: Normal thought process present Thought content: Normal thought content present Insight: Good insight present (Psych) Course Course Course Narrative: RME performed by Sumi Chung PA-C. Patient is a 52 year old assigned female at presenting to the emergency department with congestion. Swabs and chest XR ordered. Patient placed back in the waiting room pending room availability and results. Medical Decision Making Medical Decision Making [facility] Narrative: Patient is a 52 year old assigned female at with a history of colon cancer presenting to the emergency department today with nasal congestion and a cough. Patient's limited physical exam completed in triage was unremarkable. Patient's chest x-ray showed no acute process. Patient's COVID/RSV/Influenza swab was negative. Patient left the department before myself or any of the other emergency department clinicians could review and explain the patient's physical exam findings and test results. Differential Diagnosis Differential Diagnoses: The differential diagnosis associated with the presentation includes Cough URI COVID-19 Influenza RSV Lab Data [facility] Lab Attestation statement: I reviewed the patient's lab results. My interpretation of these studies and their corresponding values is that they are grossly normal. Labs: Lab Results 03/21/23 Range/Units 11:27 Influenza Type A (PCR) NEGATIVE (Negative) Influenza Type B (PCR) NEGATIVE (Negative) RSV RNA Qual (PCR) NEGATIVE (Negative) SARS-CoV-2 RNA (RT-PCR) NEGATIVE (Negative) Independent Interpretation I performed an independent interpretation of an: Plain X-Ray Interpretation: My interpretation is in agreement with the radiologist's impression of this imaging study. EXAMINATION: XR CHEST CLINICAL INFORMATION: Congestive, cough. History of rectal cancer. COMPARISON: CT chest 01/25/2023. Chest radiograph 01/11/2022. TECHNIQUE: 2 views of the chest were obtained. FINDINGS: Right-sided chest port with the tip overlying the region of the cavoatrial junction. Normal heart size. Again noted postoperative changes in the left lower lobe. No new focal airspace opacity, pleural effusion or pneumothorax. No acute osseous findings. Visualized upper abdomen is within normal limits. XR/XR chest 2V IMPRESSION: 1. No acute cardiopulmonary findings. 2. Stable postoperative changes in the left lower lobe. In this patient with a history of rectal cancer, further evaluation with a CT chest could be obtained if clinically deemed appropriate following oncology guidelines. Dictated By: Farida Perdomo Signed By: Electronically signed by Farida Perdomo 03/21/23 1147 Radiology Impression Discussion of test interpretation with radiology: I have reviewed the radiologist's reading. External Record Review External record reviewed: Office record, Outpatient record and Primary care record Discharge Plan Discharge Clinical Impression: Nasal congestion Patient Disposition: Left W/O Completing Treatment Prescriptions: No Action folic acid 1 mg tablet 1 mg PO DAILY 90 Days Qty: 90 3RF oxycodone 10 mg tablet 10 mg PO Q8H PRN (Reason: Breakthrough Pain, Severe) 10 Days Qty: 30 0RF Rx Instructions: Partial Fill upon patient request; refill Rx only when due ondansetron 8 mg Tablet,Disintegrating 8 mg PO Q8H Qty: 60 3RF megestrol 400 mg/10 mL (40 mg/mL) Suspension 800 mg PO DAILY Qty: 600 3RF oxycodone [OxyContin] 20 mg Tablet,Oral Only,Ext.Rel.12 Hr 20 mg PO Q12H Qty: 60 0RF Rx Instructions: Partial Fill upon patient request. cyanocobalamin (vitamin B-12) 1,000 mcg Tablet 1,000 mcg PO DAILY omeprazole 20 mg capsule,delayed release(DR/EC) 20 mg PO DAILY@0630 oxycodone 10 mg tablet 10 mg PO Q4H PRN (Reason: Breakthrough Pain, Severe) Rx Instructions: Partial Fill upon patient request cholecalciferol (vitamin D3) 50 mcg (2,000 unit) capsule 50 mcg PO FR menthol-zinc oxide [Calmoseptine] 0.44-20.6 % ointment 1 appl topical QID PRN (Reason: perianal skin irritation) Qty: 113 0RF docusate sodium [Colace] 100 mg capsule 100 mg PO BID Qty: 60 2RF Interventions: ED Discharge Assessment Last Done: 03/21/23 16:39 Discharge Date/Time: 03/21/23 16:42
[2023-03-21 12:38] LABS: Influenza A PCR NEGATIVE (Negative); Influenza B PCR NEGATIVE (Negative); Resp Syncy Virus RNA Qual PCR NEGATIVE (Negative); SARS COV2 PCR INHOUSE NEGATIVE (Negative)
== END 2023-03-21 16:42 | disposition left against medical advice (07) ==
PROVIDERS: Physician Assistant Medical; Emergency Provider Emergency Medicine; PCP Internal Medicine
DX: R09.81 Nasal congestion (principal); Z20.822 Contact with and (suspected) exposure to COVID-19; Z20.828 Contact with and (suspected) exposure to other viral communicable diseases; Z87.891 Personal history of nicotine dependence
CPT/HCPCS: 0241U; 71046; 99282; 99283

== ENCOUNTER 2023-03-28 12:44 | Emergency (ER) | payer OTHER, SELFPAY ==
[2023-03-28 13:38] VITALS: BP 141/91; PULSE 109; RESP 16; TEMP 36.7; O2SAT 98; BMI 20.7
--- NOTE | 2023-03-28 13:39 | ED_ITS ---
HPI - General Adult General Chief complaint: General Medical Stated complaint: Chemo pt-lightheaded/not feeling well Time Seen by Provider: 03/28/23 17:25 Source: patient Mode of arrival: ambulatory Limitations: no limitations History of Present Illness HPI narrative: A 52-year-old female with history of stage IV colon cancer patient was just started on chemotherapy 6 weeks ago, is here today for generalized weakness, feeling congested with coughing, patient been having frequent bowel movements which is loose stool not watery diarrhea, no nausea, no vomiting. Otherwise declined fever or chills. Related Data Home Medications Medication Instructions Recorded Confirmed cyanocobalamin (vitamin B-12) 1,000 mcg PO DAILY 01/10/22 03/17/23 1,000 mcg tablet cholecalciferol (vitamin D3) 50 50 mcg PO FR 10/29/22 03/17/23 mcg (2,000 unit) capsule omeprazole 20 mg capsule,delayed 20 mg PO DAILY@0630 10/29/22 03/17/23 release oxycodone 10 mg tablet 10 mg PO Q4H PRN Breakthrough 10/29/22 03/17/23 Pain, Severe Previous Rx's Medication Instructions Recorded ondansetron 8 mg disintegrating 8 mg PO Q8H #60 tabs 01/28/23 tablet megestrol 400 mg/10 mL (40 mg/mL) 800 mg (20 mL) PO DAILY #600 mL 02/08/23 oral suspension folic acid 1 mg tablet 1 mg PO DAILY 90 days #90 tabs 03/04/23 docusate sodium 100 mg capsule 100 mg PO BID #60 caps 03/17/23 (Colace) menthol 0.44 %-zinc oxide 20.6 % 1 appl topical QID PRN perianal 03/17/23 topical ointment (Calmoseptine) skin irritation #113 grams oxycodone 20 mg tablet,crush 20 mg PO Q12H #60 tabs 03/21/23 resistant,extended release 12 hr (OxyContin) potassium chloride 10 mEq 20 meq (2 x 10 mEq) PO DAILY #30 03/22/23 tablet,extended release (K-Tab) tabs oxycodone 10 mg tablet 10 mg PO Q8H PRN Breakthrough 03/24/23 Pain, Severe 10 days #30 tabs Allergies Allergy/AdvReac Type Severity Reaction Status Date / Time gabapentin AdvReac Unknown dizziness, Verified 03/17/23 12:55 lightheadedness ibuprofen AdvReac Unknown nausea and Verified 03/17/23 12:55 vomiting Review of Systems 2 Review of Systems: all other systems are reviewed and are negative Constitutional: Reports as per HPI and Reports no additional constitutional complaints Eyes: Reports as per HPI and Reports no additional eye complaints Reports system reviewed and no additional complaints, except as documented Cardiovascular: Reports as per HPI and Reports no additional cardiovascular complaints Respiratory: Reports as per HPI and Reports no additional respiratory complaints Gastrointestinal: Reports as per HPI and Reports no additional gastrointestinal complaints Genitourinary: Reports no additional female genitourinary complaints Musculoskeletal: Reports no additional musculoskeletal complaints Skin/Breast: Reports system reviewed and no additional complaints, except as docu Psychiatric: Reports no additional psychiatric complaints Endocrine: Reports no additional endocrine complaints Hematologic/Lymphatic: Reports no additional hematologic/lymphatic complaints Allergic/Immunologic: Reports no additional allergic/immunologic complaints Reports system reviewed and no additional complaints, except as documented and Reports Abnormal speech present [facility] Past Medical History Medical History Rectal cancer metastasized to lung (~2020) Mass of left lung Intractable pain Personal history of nicotine dependence Perianal dermatitis Vitamin D deficiency Gastroesophageal reflux disease Tubular adenoma H. pylori infection Chronic pain syndrome Sacroiliitis Lumbar back pain with radiculopathy affecting left lower extremity Surgical History History of lung surgery (~2022) History of colonoscopy History of tubal ligation (~1999) History of hemorrhoidectomy (~2007) History of low anterior resection of rectum (~07/2021) History of reversal of ileostomy (~12/2021) S/P anal fissurectomy (~2008) History of bursectomy (~2013) History of nasal polypectomy History of esophagogastroduodenoscopy (EGD) Family History Family History Mother Diabetes HTN (hypertension) Father Diabetes Heart attack Brother Diabetes Heart problem HTN (hypertension) Maternal Aunt Breast cancer Sister Uterus cancer Maternal Aunt Breast cancer Mother Lung cancer Social History Social History Household Members: Significant Other Housing: House Are you a primary childcare director to a significant other at home: No Do you presently have visiting nurse or other home services: No Alcohol intake: never Patient Tobacco Use Status: Former Tobacco user Quit Date: 2020 Smoked in Last 30 Days: No Use of substances other than those prescribed or required for medical reasons: No Advance Directives: No Advance Directives Information Provided: No service: No Current occupational status: unemployed and disabled Cognitive needs: No Hearing needs: No Vision needs: No Physical Exam ED Vital Signs: Vital Signs - 24 hr 03/28/23 13:38 03/28/23 17:32 03/28/23 18:34 Temperature 98.0 F 98.1 F Pulse Rate 109 H 85 69 Respiratory Rate 16 18 19 Blood Pressure 141/91 H 149/85 H 122/68 Pulse Oximetry 98 100 100 Oxygen Delivery Method Room Air Room Air Room Air 03/28/23 19:51 Temperature 97.9 F Pulse Rate 75 Respiratory Rate 18 Blood Pressure 112/70 Pulse Oximetry 100 Oxygen Delivery Method Room Air BMI result Body Mass Index 20.7 Vital signs have been reviewed and appear to be correct. Blood pressure elevated. Heart rate normal. Respiratory rate normal. Temperature normal. Oxygen saturation normal. Appearance: Alert. Oriented X3. No acute distress. Head: Normal external exam. Normocephalic. Atraumatic. No Cabrera signs noted. No raccoon eyes noted Eyes: PERRLA. EOMI. Conjunctiva and sclera normal. Eyelids normal. ENT: TM's Normal. Pharynx normal. Uvula midline. Moist mucous membranes. No trismus noted. No drooling noted. No muffled voice noted. Neck: Normal inspection. Neck supple. FROM. No adenopathy. Thyroid Normal. No meningeal signs. No neck mass noted. CVS: Normal heart rate and rhythm. Heart sound normal. No murmurs noted. Pulses normal throughout. Respiratory: No respiratory distress. Painless inspiration. Breath sounds normal. No wheezes/rales/rhonchi noted. Chest nontender. No accessory muscle usage noted or decreased air movement noted. Abdomen: Soft and nontender. Bowel sounds normal in all 4 quadrants. No distention noted. No organomegaly noted. No visible injury noted. Back: No CVA tenderness. Full range of motion noted. Skin: Skin warm and dry. Normal skin color. Normal skin turgor. No rashes/lesions/lacerations noted. Extremities: No lower extremity edema. Extremities exhibit normal range of motion. Extremities nontender. Neuro: Oriented X 3. Cranial nerve exam: II-XII are grossly intact No motor deficit. No sensory deficit. Reflexes normal. Course Course Course Narrative: This is an RME: Additional HPI, ROS, PE not included below will be deferred to primary provider. This is a 52 year old female, with a history of colon cancer undergoing chemotherapy, presenting to the emergency department with a complaint of diarrhea, congestions, cough, weakness, dizziness, and body aches. Pt took immodium. She has had congestion and weakness, dizziness upon standing. Reporting that she barely rested due to her symptoms. No fevers. VSS. She is hoping to get IV fluids. Plan: Basic labs, viral swabs ordered. Reevaluation(s) Reevaluation #1: patient received 2 L of normal saline feeling better after hydration, decline abdominal pain or nausea or vomiting, labs are at baseline for the patient, patient subjectively feels better will discharge the patient home to encourage drinking plenty of fluid and follow up with her PCP. Time: 19:56 Medications Administered Discontinued Medications Generic Name Dose Route Start Last Admin Trade Name Freq PRN Reason Stop Dose Admin Sodium Chloride 1,000 mls @ 999 mls/hr 03/28/23 17:36 03/28/23 18:55 Ns IV 03/28/23 18:36 Infused .Q1H1M ONE Infusion Sodium Chloride 1,000 mls @ 999 mls/hr 03/28/23 18:42 03/28/23 18:57 Ns IV 03/28/23 19:42 999 mls/hr .Q1H1M ONE Administration Morphine Sulfate 2 mg 03/28/23 19:16 03/28/23 19:26 Morphine Sulfate 2 Mg/Ml Cartridge IVPUSH 03/28/23 19:17 2 mg ONCE ONE Administration Protocol Medical Decision Making Differential Diagnosis Differential Diagnoses: The differential diagnosis associated with the presentation includes ( Dehydration, electrolyte abnormality, severe anemia.) Admission/Observation Consideration of admission/observation: Escalation of care including admission/observation considered Lab Data MDM Lab Attestation statement: I reviewed the patient's lab results. 03/28/23 13:51 10/02/23 13:51 Labs: Lab Results 03/28/23 Range/Units 13:51 WBC 4.0 L (4.8-10.8) X10*3/uL RBC 2.89 L (4.20-5.50) X10*6/uL Hgb 9.6 L (12.0-16.0) g/dl Hct 28.8 L (37.0-47.0) % MCV 99.7 H (80.0-98.0) fL MCH 33.2 H (27.0-33.0) pg MCHC 33.3 (31.0-35.0) g/dl RDW 13.7 (11.0-16.0) % Plt Count 97 L D (160-400) X10*3/uL MPV 10.8 (9.4-12.3) fL Immature Gran % (Auto) Cancelled Neut % (Auto) Cancelled Lymph % (Auto) Cancelled [place] % (Auto) Cancelled Eos % (Auto) Cancelled Baso % (Auto) Cancelled Lymph # (Auto) Cancelled [place] # (Auto) Cancelled Eos # (Auto) Cancelled Baso # (Auto) Cancelled Abs Immat Gran (auto) Cancelled Absolute Neuts (auto) Cancelled Absolute Nucleated RBC 0.000 (0.0-0.012) X10*3/uL Nucleated RBC % (auto) 0.0 (0.0-0.2) /100WBC Neutrophils % (Manual) 40 L (45-73) % Band Neutrophils % 3 (3-5) % Lymphocytes % (Manual) 52 H (20-40) % Monocytes % (Manual) 4 (2-11) % Eosinophils % (Manual) 1 (0-4) % Abs Neuts (Manual) 1.7 L (2.0-8.3) X10*3/uL Lymphocytes # (Manual) 2.1 (1.2-4.9) X10*3/uL Monocytes # (Manual) 0.2 (0.1-1.2) X10*3/uL Dohle Bodies PRESENT Platelet Estimate DECREASED (NORMAL) Plt Morphology Comment NORMAL RBC Morphology NORMAL Sodium 141 (135-145) mmol/L Potassium 4.0 D (3.3-5.1) mmol/L Chloride 108 (96-108) mmol/L Carbon Dioxide 23 (22-29) mmol/L Anion Gap 14 (12-20) BUN 13 (9-16) mg/dL Creatinine 0.83 (0.5-1.4) mg/dL Estim Creat Clear Calc 59.1 Estimated GFR > 60 Random Glucose 124 H (60-115) mg/dL Calcium 9.3 (8.4-10.2) mg/dL Magnesium 2.0 (1.6-2.6) mg/dL Total Bilirubin 0.7 (0.0-1.0) mg/dL Direct Bilirubin 0.3 (0.0-0.5) mg/dL AST 15 (5-31) U/L ALT 12 (0-31) U/L Alkaline Phosphatase 68 (39-117) U/L Total Protein 6.8 (6.5-8.0) g/dL Albumin 4.1 (3.5-5.0) g/dL Influenza Type A (PCR) NEGATIVE (Negative) Influenza Type B (PCR) NEGATIVE (Negative) RSV RNA Qual (PCR) NEGATIVE (Negative) SARS-CoV-2 RNA (RT-PCR) NEGATIVE (Negative) Prescription Management I considered prescription management with: Other ( metastatic cancer disease.) Chronic Conditions Patient?s care impacted by: Cancer Discharge Plan Discharge Clinical Impression: Episode of generalized weakness Patient Disposition: Home, Self-Care Instructions: Weakness (ED) Prescriptions: No Action folic acid 1 mg tablet 1 mg PO DAILY 90 Days Qty: 90 3RF oxycodone 10 mg tablet 10 mg PO Q8H PRN (Reason: Breakthrough Pain, Severe) 10 Days Qty: 30 0RF Rx Instructions: Partial Fill upon patient request; refill Rx only when due ondansetron 8 mg Tablet,Disintegrating 8 mg PO Q8H Qty: 60 3RF megestrol 400 mg/10 mL (40 mg/mL) Suspension 800 mg PO DAILY Qty: 600 3RF oxycodone [OxyContin] 20 mg Tablet,Oral Only,Ext.Rel.12 Hr 20 mg PO Q12H Qty: 60 0RF Rx Instructions: Partial Fill upon patient request. potassium chloride [K-Tab] 10 mEq Tablet Extended Release 20 meq PO DAILY Qty: 30 3RF cyanocobalamin (vitamin B-12) 1,000 mcg Tablet 1,000 mcg PO DAILY omeprazole 20 mg capsule,delayed release(DR/EC) 20 mg PO DAILY@0630 oxycodone 10 mg tablet 10 mg PO Q4H PRN (Reason: Breakthrough Pain, Severe) Rx Instructions: Partial Fill upon patient request cholecalciferol (vitamin D3) 50 mcg (2,000 unit) capsule 50 mcg PO FR menthol-zinc oxide [Calmoseptine] 0.44-20.6 % ointment 1 appl topical QID PRN (Reason: perianal skin irritation) Qty: 113 0RF docusate sodium [Colace] 100 mg capsule 100 mg PO BID Qty: 60 2RF Referrals: Ky Lin MD [Primary Care Provider] -
[2023-03-28 14:00] LABS: Hematocrit 28.8 % (37.0-47.0); Hemoglobin 9.6 g/dl (12.0-16.0); Mean Corpuscular HGB Conc 33.3 g/dl (31.0-35.0); Mean Corpuscular Hemoglobin 33.2 pg (27.0-33.0); Mean Corpuscular Volume 99.7 fL (80.0-98.0); Red Blood Count 2.89 X10*6/uL (4.20-5.50); Red Cell Distribution Width 13.7 % (11.0-16.0)
[2023-03-28 14:12] LABS: WBC ABN SCTR FOR CBC 1
[2023-03-28 14:14] LABS: Alanine Aminotransferase 12 U/L (0-31); Albumin Level 4.1 g/dL (3.5-5.0); Alkaline Phosphatase 68 U/L (39-117); Anion Gap 14 (12-20); Aspartate Amino Transferase 15 U/L (5-31); Bilirubin Direct 0.3 mg/dL (0.0-0.5); Bilirubin Total 0.7 mg/dL (0.0-1.0); Blood Urea Nitrogen 13 mg/dL (9-16); Calcium 9.3 mg/dL (8.4-10.2); Carbon Dioxide 23 mmol/L (22-29); Chloride 108 mmol/L (96-108); Creatinine Clr Calc Pharmacy 59.1; Estimated Glomerular Filt Rate > 60; Glucose Random 124 mg/dL (60-115); Sodium 141 mmol/L (135-145); Total Protein 6.8 g/dL (6.5-8.0)
[2023-03-28 14:23] LABS: Mean Platelet Volume 10.8 fL (9.4-12.3); Platelet Count 97 X10*3/uL (160-400)
[2023-03-28 14:28] LABS: Band Neutrophils Percent 3 % (3-5); Eosinophils Percent Manual 1 % (0-4); Lymphocytes Absolute Manual 2.1 X10*3/uL (1.2-4.9); Lymphocytes Percent Manual 52 % (20-40); Monocytes Absolute Manual 0.2 X10*3/uL (0.1-1.2); Monocytes Percent Manual 4 % (2-11); Neutrophils Absolute Manual 1.7 X10*3/uL (2.0-8.3); Neutrophils Percent Manual 40 % (45-73); Platelet Estimate DECREASED (NORMAL); Platelet Morphology Comment NORMAL
[2023-03-28 14:33] LABS: Dohle Bodies PRESENT; RBC Morphology NORMAL
[2023-03-28 14:34] LABS: Influenza A PCR NEGATIVE (Negative); Influenza B PCR NEGATIVE (Negative); Resp Syncy Virus RNA Qual PCR NEGATIVE (Negative); SARS COV2 PCR INHOUSE NEGATIVE (Negative)
[2023-03-28 17:32] VITALS: BP 149/85; PULSE 85; RESP 18; O2SAT 100
--- NOTE | 2023-03-28 17:33 | PC.NURSE ---
Patient reports hx of lung ca that spread from rectal ca. Reports today is feeling dizzy and sob when she gets up to go to the bathroom . reports feeling dehydrated and has had a formed BM ten times today
[2023-03-28] MEDS: 0.9 % Sodium Chloride 1,000 ML 999 ML IV ×2 (17:45→18:57)
[2023-03-28 18:34] VITALS: BP 122/68; PULSE 69; RESP 19; TEMP 36.7; O2SAT 100
[2023-03-28] MEDS: Morphine Sulfate 2 MG/ML CARTRIDGE IVPUSH (19:26)
[2023-03-28 19:51] VITALS: BP 112/70; PULSE 75; RESP 18; TEMP 36.6; O2SAT 100
--- NOTE | 2023-03-28 19:52 | MHC.EDTECH ---
This tech assumed care of patient at 1900,hourly rounds and vitals completed, Patient ate all of her crackers and drank a can of bobbi kaley,patient tolerated well.call dupont within reach
== END 2023-03-28 20:20 | disposition home or self-care (01) ==
PROVIDERS: Physician Assistant Medical; Emergency Provider Emergency Medicine; PCP Internal Medicine
DX: R53.1 Weakness (principal); R11.2 Nausea with vomiting, unspecified; Z20.822 Contact with and (suspected) exposure to COVID-19; Z20.828 Contact with and (suspected) exposure to other viral communicable diseases; Z79.899 Other long term (current) drug therapy
CPT/HCPCS: 0241U; 80048; 80076; 83735; 85007; 85025; 85027; 96361; 96374; 99284; J2270

== ENCOUNTER 2023-04-14 11:35 | Outpatient (AMB) | payer OTHER, SELFPAY ==
[2023-04-14 11:42] VITALS: BP 154/82; PULSE 80; O2SAT 99; BMI 21.8
--- NOTE | 2023-04-14 11:42 | A.OFFPC_ITS ---
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: No Accompanied by: Self / Same As Patient Allergies gabapentin Adverse Reaction (Unknown, Verified 04/17/23 21:16) dizziness, lightheadedness ibuprofen Adverse Reaction (Unknown, Verified 04/17/23 21:16) nausea and vomiting Medication List - Last Reconciled 04/17/23 by Ky Lin MD cholecalciferol (vitamin D3) 50 mcg PO FR cyanocobalamin (vitamin B-12) 1,000 mcg PO DAILY docusate sodium (Colace) 100 mg PO BID folic acid 1 mg PO DAILY 90 days megestrol 800 mg (20 mL) PO DAILY menthol-zinc oxide 0.44-20.6 % (Calmoseptine) 1 appl topical QID PRN omeprazole 20 mg PO DAILY@0630 ondansetron 8 mg PO Q8H oxycodone 10 mg PO Q4H PRN oxycodone 10 mg PO Q8H PRN 10 days oxycodone ER (OxyContin) 20 mg PO Q12H potassium chloride ER (K-Tab) 20 mEq (2 x 10 mEq) PO DAILY Tobacco use date assessed: 04/14/23 Dental Screening Dental Screen Date: 04/14/23 Did you have a dental visit in the last 12 months?: Yes Did you have a dental problem in the last 6 months where you did not have access to dental care?: No Was dental information given to patient?: Patient has dentist HPI ED FOLLOW UP HPI Details Patient comes in today for her HDF follow up visit She went to the ER a couple of weeks ago for increasing lightheadedness and weakness Work ups done in the ER revealed no acute abnormalities She received some IV fluid hydration while she was in the ER and she reports that she is feeling slightly better afterwards Patient was started on adjuvant chemotherapy with FOLFIRI and Avastin a couple of months ago and is currently still on Tx States that her appetite has been slowly improving and aside from fatigue, she seems to be tolerating her current chemotherapy well She denies any headaches or dizziness Denies any chest pains, no increased SOB No nausea/vomiting, no abdominal pain No change in bowel habits noted lately; continues to experience on and off burning rectal pain Still has increased pain over her lower back and needs her Oxycodone Rx refilled today [facility] Medical History (Updated 04/17/23 @ 21:37 by Ky Lin MD) Rectal cancer metastasized to lung (~2020) Mass of left lung Intractable pain Personal history of nicotine dependence Perianal dermatitis Vitamin D deficiency Gastroesophageal reflux disease Tubular adenoma H. pylori infection Chronic pain syndrome Sacroiliitis Lumbar back pain with radiculopathy affecting left lower extremity Surgical History History of lung surgery (~2022) History of colonoscopy History of tubal ligation (~1999) History of hemorrhoidectomy (~2007) History of low anterior resection of rectum (~07/2021) History of reversal of ileostomy (~12/2021) S/P anal fissurectomy (~2008) History of bursectomy (~2013) History of nasal polypectomy History of esophagogastroduodenoscopy (EGD) Family History Mother Diabetes HTN (hypertension) Father Diabetes Heart attack Brother Diabetes Heart problem HTN (hypertension) Maternal Aunt Breast cancer Sister Uterus cancer Maternal Aunt Breast cancer Mother Lung cancer Social History Household Members: Significant Other Housing: House Are you a primary respiratory care technician to a significant other at home: No Do you presently have visiting nurse or other home services: No Alcohol intake: never Patient Tobacco Use Status: Former Tobacco user Quit Date: 2020 Smoked in Last 30 Days: No Use of substances other than those prescribed or required for medical reasons: No Advance Directives: No Advance Directives Information Provided: Yes service: No Current occupational status: unemployed and disabled Cognitive needs: No Hearing needs: No Vision needs: No Questionnaire PHQ-9 Over the last 2 weeks, how often have you been bothered by any of the following problems? 1. Little interest or pleasure in doing things: several days 2. Feeling down, depressed, or hopeless: several days 3. Trouble falling or staying asleep, or sleeping too much: several days 4. Feeling tired or having little energy: several days 5. Poor appetite or overeating: several days 6. Feeling bad about yourself - or that you are a failure or have let yourself or your family down: several days 7. Trouble concentrating on things, such as reading the newspaper or watching television: several days 8. Moving or speaking so slowly that other people could have noticed. Or the opposite - being so fidgety or restless that you have been moving around a lot more than usual: several days 9. Thoughts that you would be better off or of hurting yourself in some way: not at all Total score: 8 Depression Screening Interpretation: Positive Depression Screening Follow-up: Existing condition and Follow-up Visit Requested Depression Screening Done: Yes 36652 - PHQ-9 Billing: Yes Source: Developed by Drs. Chilango Rios, Ana Cash, Ziggy Rios and colleagues, with an educational eleuterio from [employer] Thrive Questionnaire Date Thrive assessed: 04/14/23 I am a: Patient What is your living situation today?: I have a steady place to live Within the past 12 months, did the food you bought not last and you didn't have the money to get more?: Never true Within the past 12 months, did you worry whether your food would run out before you got money to buy more?: Never true Do you have trouble paying for medicines?: No Do you have trouble getting transportation to medical appointments?: No Do you have trouble paying your heating and electricity bill?: No Do you have trouble taking care of your child, family member or friend?: No Do you have trouble with day-to-day activities such as bathing, preparing meals, shopping, managing finances, etc.?: No Are you currently unemployed and looking for a job?: No Are you interested in more education?: No Please select the resources that you would like help with: None Currently or been in a relationship where the following occur: no concerns reported AUDIT C Alcohol Use Questionnaire (AUDIT-C) 1. How often do you have a drink containing alcohol?: Never 3. How often do you have six or more drinks on one occasion?: Never Total Score: 0 Score Reviewed/Action Taken: Yes TACHO-7 AMB Questionnaire TACHO-7 Date TACHO - 7 assessed: 04/14/23 Feeling nervous, anxious, or on edge: 0 = Not at all Not being able to stop or control worryin = Not at all Worrying too much about different things: 0 = Not at all Trouble relaxin = Not at all Being so restless that it is hard to sit still: 0 = Not at all Becoming easily annoyed or irritable: 0 = Not at all Feeling afraid as if something awful might happen: 0 = Not at all Total TACHO-7 score (0-4 normal; 5-9 mild; 10-14 moderate; 15-21 severe): 0 Source: Developed by Drs. Chilango Rios, Ana Cash, Ziggy Rios and colleagues, with an educational eleuterio from [employer] Review of Systems Const Denies chills, Reports fatigue, Denies fever(s) and Denies headache(s) ENT Denies dysphagia, Denies dizziness, Denies otalgia, Denies headache(s), Denies odynophagia and Denies sore throat Card Denies chest pain, Denies palpitations and Denies dyspnea Resp Denies cough and Denies dyspnea GI Details: (+) recurrent rectal burning sensation Denies abdominal pain, Denies constipation, Denies dysphagia, Denies heartburn, Denies diarrhea, Denies nausea, Denies odynophagia and Denies vomiting Details: c/o deep pelvic pain - S/P low anterior resection of rectum in 07/2021 Denies difficulty voiding, Denies nocturia and Denies dysuria Musc Reports back pain (over the lower back) Skin/Breast Denies rash Neuro Denies dizziness and Denies headache(s) Endo Reports fatigue and Denies palpitations Physical exam (Primary Care) Vital Signs: Last Vital Signs Pulse 80 04/14/23 11:42 BP 154/82 H 04/14/23 11:42 Pulse Ox 99 04/14/23 11:42 Oxygen Delivery Method Room Air 04/14/23 11:42 BMI result Body Mass Index 21.8 Tobacco/Smoking Status: Tobacco use Status Tobacco use date assessed 04/14/23 04/14/23 11:43 Patient Tobacco Use Status Former Tobacco user 04/14/23 11:43 PHQ-9: PHQ-9 Score PHQ-9: Total score 8 04/17/23 21:17 Depression Screening Interpretation: Positive Depression Screening Follow-up: Existing condition and Follow-up Visit Requested Thrive Assessment: Date of Thrive Assessment Date Thrive assessed 04/14/23 04/14/23 11:43 Currently or been in a relationship where the following occur: no concerns reported Const General: no acute distress and alert HENMT Ears: TM's normal bilaterally and EAC's normal Throat: Yes posterior oropharynx normal and Yes tonsils normal (no TP congestion) Neck Neck: Yes no lymphadenopathy and Yes supple Resp Auscultation: clear to auscultation bilaterally, no rales and no wheezes Cardio Rate: regular rate Rhythm: regular rhythm Heart sounds: no murmurs GI Palpation (GI): Soft to palpation, nontender and no masses Auscultation: normal bowel sounds Back/Spine/Pelvis Thoracic/Lumbar Spine: lumbar spinal tenderness Skin Rashes: no rashes Extrem General: Yes no clubbing, cyanosis or edema Results Reviewed Results Reviewed: Laboratory Tests 04/05/23 09:48 WBC 12.1 H Hgb 9.0 L Hct 27.7 L Plt Count 125 L D Sodium 141 Potassium 3.3 Creatinine 0.76 Estimated GFR > 60 Random Glucose 114 Calcium 8.8 AST 19 ALT 11 Assessment and Plan Assessment & Plan (1) Rectal cancer metastasized to lung: Onset Date: ~2020 Comment: (Adenocarcinoma - s/p resection 07/31/21, radiation and Xeloda - met to lung s/p LLL wedge 10/2022) Code(s): C20 - Malignant neoplasm of rectum; C78.00 - Secondary malignant neoplasm of unspecified lung Plan: Was first seen incidentally on abdominal and pelvic CT done in July [address] done on 09/07/2022 confirmed the 1.5 cm left lower lobe lung mass with weak FDG activity, suspicious for malignancy S/P VATS and wedge resection by Dr Neil in October 2022 Started on FOLFIRI with Avastin on 02/09/2023 and is currently still on adjuvant chemotherapy Follow up with oncology as scheduled (2) Adenocarcinoma of rectum: Onset Date: ~2020 Comment: (Invasive Adenocarcinoma - s/p resection 07/31/21, radiation and Xeloda - mets to lung s/p LLL wedge 10/2022) Code(s): C20 - Malignant neoplasm of rectum Plan: S/P surgical (low anterior) resection and loop ileostomy by Dr. Hackett at [facility] in [place] on 07/31/2021; later underwent ileostomy reversal on 01/08/2022 also at [facility] She completed radiation therapy and Xeloda in 11/2021; was then treated with modified FOLFOX 6 but repeat imaging studies earlier this year showed (+) lung mets for which she underwent wedge resection and is now on adjuvant chemotherapy Follow up with oncology (Dr. Macdonald) as scheduled (3) Lumbar back pain with radiculopathy affecting left lower extremity: Code(s): M54.16 - Radiculopathy, lumbar region Plan: Reinforced activity and weight-lifting restrictions Was seeing Pain Management for follow-up previously and was considering other treatment options, including intrathecal delivery system, but these were all put on hold when she was diagnosed with rectal cancer a couple of years ago She had an appointment with Dr. Aguilar on 06/29/22 but she reportedly overslept and missed her appt then and has not been back to see pain management since Continue Oxycodone 10 mg Q 8 hours PRN for now - Rx refilled (4) Gastroesophageal reflux disease: Code(s): K21.9 - Gastro-esophageal reflux disease without esophagitis Qualifiers: Esophagitis presence: esophagitis presence not specified Qualified Code(s): K21.9 - Gastro-esophageal reflux disease without esophagitis Plan: Dietary restrictions reinforced Continue Omeprazole 20 mg QD (5) Vitamin D deficiency: Code(s): E55.9 - Vitamin D deficiency, unspecified Plan: Continue Vitamin D3 2000 units QD (6) Anxiety: Code(s): F41.9 - Anxiety disorder, unspecified Plan: Continue Hydroxyzine 25 mg BID PRN Plan Follow up in 3 months Medications: Refilled oxycodone Partial Fill upon patient request; refill Rx only when due 10 mg PO Q8H 10 days PRN 30 tabs 0RF Breakthrough Pain, Severe Coding Level of Care Code Est Pt Level 4 (59079) Diagnoses Rectal cancer metastasized to lung C20; C78.00 Adenocarcinoma of rectum C20 Lumbar back pain with radiculopathy affecting left lower extremity M54.16 Gastroesophageal reflux disease, unspecified whether esophagitis present K21.9 Esophagitis presence: esophagitis presence not specified Vitamin D deficiency E55.9 Anxiety F41.9
== END 2023-04-14 12:30 | disposition home or self-care (01) ==
PROVIDERS: PCP Internal Medicine; Visit Provider Internal Medicine
DX: C20 Malignant neoplasm of rectum (principal); C78.00 Secondary malignant neoplasm of unspecified lung; M54.16 Radiculopathy, lumbar region; K21.9 Gastro-esophageal reflux disease without esophagitis; E55.9 Vitamin D deficiency, unspecified; F41.9 Anxiety disorder, unspecified
CPT/HCPCS: 99214

== ENCOUNTER 2023-04-16 10:54 | Emergency (ER) | payer OTHER, SELFPAY ==
--- NOTE | ~2023-04-16 | CT_ITS ---
EXAMINATION: CT ABDOMEN AND PELVIS WITHOUT CONTRAST CLINICAL INFORMATION: Right-sided pain history of rectal cancer. COMPARISON: Abdominal ultrasound 04/16/2023, CT abdomen and pelvis 02/04/2023. TECHNIQUE: Multidetector volumetric imaging was performed from the superior aspect of the liver through the pubic symphysis. Sagittal and coronal reformatted images were obtained on the technologist's workstation. This CT examination was performed using dose optimization techniques as appropriate, variously including the following: *Automated exposure control *Adjustment of mA and/or kV according to patient size (this includes techniques or standardized protocols for targeted exams where dose is matched to indication/reason for exam; i.e. extremities or head) *Use of iterative reconstruction technique DLP: 327 mGy-cm FINDINGS: LUNG BASES: Surgical changes left lower lobe. LIVER, GALLBLADDER, AND BILIARY TREE: No discrete liver mass on noncontrast imaging. No biliary ductal dilatation. The gallbladder is contracted. PANCREAS: No discrete pancreatic mass. No pancreatic ductal dilatation. Peripancreatic inflammation. SPLEEN: The spleen is normal in size. Tiny splenic granuloma. ADRENAL GLANDS: No adrenal mass. KIDNEYS AND URETERS: The kidneys are normal in size, shape, and attenuation. No hydronephrosis, hydroureter, or calculi seen. No perinephric stranding. BLADDER: Unremarkable. GASTROINTESTINAL TRACT: Small bowel is normal in caliber. Small bowel anastomosis near the terminal ileum without evidence of obstruction. Large bowel is normal in caliber without evidence of obstruction. A discrete rectal mass is not seen. Trace amount of fluid in the right cul-de-sac is nonspecific and could be physiologic ABDOMINAL WALL: Surgical changes right lower quadrant. No hernia. LYMPH NODES: No lymphadenopathy. VASCULAR: No aortic aneurysm. Mild atherosclerosis. PELVIC VISCERA: Unremarkable. OSSEOUS STRUCTURES: Moderate degenerative disc disease at L5-S1. No suspicious osseous lesions. CT/CT abdomen pelvis wo IV con IMPRESSION: Small bowel anastomosis right lower quadrant without evidence of obstruction. Trace free fluid of unknown etiology, possibly physiologic if the patient is not postmenopausal. Correlate with history. Otherwise no findings to correlate with right-sided abdominal pain. Fleischner guidelines do not apply (oncology patient).
--- NOTE | ~2023-04-16 | US_ITS ---
EXAMINATION: US ABDOMEN LIMITED CLINICAL INFORMATION: History of colon cancer, right upper quadrant abdominal pain. Question new mass. COMPARISON: CT 02/04/2023. TECHNIQUE: Real-time imaging of the right upper quadrant abdominal viscera. FINDINGS: PANCREAS: The head and body appear normal. The tail is obscured by bowel gas. LIVER: Normal. The liver is normal in size. The liver contour is normal. Parenchymal echogenicity is normal. No focal hepatic lesion. There is no intrahepatic biliary duct dilatation seen. GALLBLADDER: Normal. The gallbladder is physiologically distended without evidence of stones, sludge, polyps, wall thickening or pericholecystic fluid. COMMON BILE DUCT: Normal in caliber measuring 0.4 cm in diameter. RIGHT KIDNEY: The kidney measures small at 0.9 cm but is otherwise normal in appearance. No nephrolithiasis or hydronephrosis. FREE FLUID: None. US/US abdomen limited IMPRESSION: No visible liver mass.
[2023-04-16 10:57] VITALS: BP 130/79; PULSE 86; RESP 18; TEMP 36.8; O2SAT 97; BMI 20.2
--- NOTE | 2023-04-16 11:00 | ED_ITS ---
HPI - General Adult General Chief complaint: Abdominal Pain Stated complaint: R side pain Time Seen by Provider: 04/16/23 12:06 Source: patient Mode of arrival: ambulatory Limitations: no limitations History of Present Illness HPI narrative: Patient history of rectal cancer stage III with med assistance to the lung status post resection chemo and radiation treatment comes here for sharp pain in the right lower abdomen for last 1 week no nausea no vomiting no diarrhea no fever no chills no urinary symptoms patient spoke to the PCP and advised to go to the ER for further management Related Data Home Medications Medication Instructions Recorded Confirmed cyanocobalamin (vitamin B-12) 1,000 mcg PO DAILY 01/10/22 03/17/23 1,000 mcg tablet cholecalciferol (vitamin D3) 50 50 mcg PO FR 10/29/22 03/17/23 mcg (2,000 unit) capsule omeprazole 20 mg capsule,delayed 20 mg PO DAILY@0630 10/29/22 03/17/23 release oxycodone 10 mg tablet 10 mg PO Q4H PRN Breakthrough 10/29/22 03/17/23 Pain, Severe Previous Rx's Medication Instructions Recorded ondansetron 8 mg disintegrating 8 mg PO Q8H #60 tabs 01/28/23 tablet megestrol 400 mg/10 mL (40 mg/mL) 800 mg (20 mL) PO DAILY #600 mL 02/08/23 oral suspension folic acid 1 mg tablet 1 mg PO DAILY 90 days #90 tabs 03/04/23 docusate sodium 100 mg capsule 100 mg PO BID #60 caps 03/17/23 (Colace) menthol 0.44 %-zinc oxide 20.6 % 1 appl topical QID PRN perianal 03/17/23 topical ointment (Calmoseptine) skin irritation #113 grams oxycodone 20 mg tablet,crush 20 mg PO Q12H #60 tabs 03/21/23 resistant,extended release 12 hr (OxyContin) potassium chloride 10 mEq 20 meq (2 x 10 mEq) PO DAILY #30 03/22/23 tablet,extended release (K-Tab) tabs oxycodone 10 mg tablet 10 mg PO Q8H PRN Breakthrough 04/14/23 Pain, Severe 10 days #30 tabs Allergies Allergy/AdvReac Type Severity Reaction Status Date / Time gabapentin AdvReac Unknown dizziness, Verified 04/16/23 11:04 lightheadedness ibuprofen AdvReac Unknown nausea and Verified 04/16/23 11:04 vomiting Review of Systems 2 Review of Systems: Yes all other systems are reviewed and are negative [facility] Past Medical History Medical History Rectal cancer metastasized to lung (~2020) Mass of left lung Intractable pain Personal history of nicotine dependence Perianal dermatitis Vitamin D deficiency Gastroesophageal reflux disease Tubular adenoma H. pylori infection Chronic pain syndrome Sacroiliitis Lumbar back pain with radiculopathy affecting left lower extremity Surgical History History of lung surgery (~2022) History of colonoscopy History of tubal ligation (~1999) History of hemorrhoidectomy (~2007) History of low anterior resection of rectum (~07/2021) History of reversal of ileostomy (~12/2021) S/P anal fissurectomy (~2008) History of bursectomy (~2013) History of nasal polypectomy History of esophagogastroduodenoscopy (EGD) Family History Family History Mother Diabetes HTN (hypertension) Father Diabetes Heart attack Brother Diabetes Heart problem HTN (hypertension) Maternal Aunt Breast cancer Sister Uterus cancer Maternal Aunt Breast cancer Mother Lung cancer Social History Social History Household Members: Significant Other Housing: House Are you a primary pediatric critical care nurse to a significant other at home: No Do you presently have visiting nurse or other home services: No Alcohol intake: never Patient Tobacco Use Status: Former Tobacco user Quit Date: 2020 Smoked in Last 30 Days: No Use of substances other than those prescribed or required for medical reasons: No Advance Directives: No Advance Directives Information Provided: Yes service: No Current occupational status: unemployed and disabled Cognitive needs: No Hearing needs: No Vision needs: No Physical Exam ED Vital Signs: Vital Signs - 24 hr 04/16/23 10:57 04/16/23 11:43 04/16/23 14:06 Temperature 98.2 F Pulse Rate 86 80 84 Respiratory Rate 18 18 16 Blood Pressure 130/79 126/75 122/83 Pulse Oximetry 97 100 100 Oxygen Delivery Method Room Air Room Air Room Air BMI result Body Mass Index 20.2 Appearance: Alert. Oriented X3. No acute distress. Eyes: PERRLA, No Nystagmus ENT: Pharynx normal. Oral Mucosa moist Neck: Normal inspection. Neck supple. CVS: Normal heart rate and rhythm. Pulses normal. Respiratory: No respiratory distress. Equal air entry bilateral, no wheezing/rales/rhonchi Abdomen: Soft , mild tenderness in right lower abdomen no rebound tenderness or guarding Bowel sounds are present, no mass palpable, no CVA tenderness Skin: Skin warm and dry. Normal skin color. Normal skin turgor. Extremities: No lower extremity edema. No calf tenderness Neuro: Oriented X 3. No motor deficit. No sensory deficit.No cerebellar signs , Course Course Course Narrative: This is a rapid medical exam: Additional HPI, ROS, PE not included below will be deferred to primary provider. Patient is a 52-year-old female with history of colon CA currently receiving chemo presenting to the ED with one week of right sided abdominal pain. Rates current pain at 6/10. Has 10mg oxycodone at home with has helped slightly. States is May she had similar pain on her left side and she was found to have a malignant mass which was subsequently removed. She denies any dysuria, frequency, or other urinary symptoms. She reports history of ostomy with reversal to RLQ, states pain is above that in RUQ. Denies fevers. Denies nausea, vomiting, diarrhea, or consipation. Plan: UA, labs, RUQ U/S Medical Decision Making Medical Decision Making [facility] Narrative: Pre nonspecific right lower abdominal pain stable labs CT scan without any acute pathology ultrasound also negative discharge patient home advised to follow up with oncologist and PCP Differential Diagnosis Differential Diagnoses: The differential diagnosis associated with the presentation includes Small-bowel obstruction/abdominal mass/appendicitis Lab Data [facility] Lab Attestation statement: I reviewed the patient's lab results. 04/16/23 11:57 04/16/23 11:57 Labs: Lab Results 04/16/23 Range/Units 11:57 WBC 13.9 H (4.8-10.8) X10*3/uL RBC 2.67 L (4.20-5.50) X10*6/uL Hgb 9.2 L (12.0-16.0) g/dl Hct 28.1 L (37.0-47.0) % MCV 105.2 H (80.0-98.0) fL MCH 34.5 H (27.0-33.0) pg MCHC 32.7 (31.0-35.0) g/dl RDW 18.5 H (11.0-16.0) % Plt Count 184 D (160-400) X10*3/uL MPV 9.7 (9.4-12.3) fL Immature Gran % (Auto) Cancelled Neut % (Auto) Cancelled Lymph % (Auto) Cancelled Cook % (Auto) Cancelled Eos % (Auto) Cancelled Baso % (Auto) Cancelled Lymph # (Auto) Cancelled Cook # (Auto) Cancelled Eos # (Auto) Cancelled Baso # (Auto) Cancelled Abs Immat Gran (auto) Cancelled Absolute Neuts (auto) Cancelled Absolute Nucleated RBC 0.060 H (0.0-0.012) X10*3/uL Nucleated RBC % (auto) 0.4 H (0.0-0.2) /100WBC Neutrophils % (Manual) 76 H (45-73) % Band Neutrophils % 8 H (3-5) % Lymphocytes % (Manual) 9 L (20-40) % Monocytes % (Manual) 5 (2-11) % Myelocytes % 2 % Abs Neuts (Manual) 11.7 H (2.0-8.3) X10*3/uL Lymphocytes # (Manual) 1.3 (1.2-4.9) X10*3/uL Monocytes # (Manual) 0.7 (0.1-1.2) X10*3/uL Myelocytes # 0.3 X10*/uL Nucleated RBCs 1 H (0-0) /100WBC Toxic Granulation PRESENT Dohle Bodies PRESENT Platelet Estimate NORMAL (NORMAL) Plt Morphology Comment NORMAL RBC Morphology NOTED Polychromasia 2+ (3-5) /OIF Macrocytosis 1+ (5-14) /OIF Tear Drop Cells 1+ (0-2) /OIF PT 12.0 (11.1-13.3) SEC INR 1.0 (0.9-1.1) Sodium 139 (135-145) mmol/L Potassium 3.4 (3.3-5.1) mmol/L Chloride 108 (96-108) mmol/L Carbon Dioxide 23 (22-29) mmol/L Anion Gap 11 L (12-20) BUN 15 (9-16) mg/dL Creatinine 0.99 (0.5-1.4) mg/dL Estim Creat Clear Calc 55.4 Estimated GFR 59 Random Glucose 117 H (60-115) mg/dL Calcium 9.2 (8.4-10.2) mg/dL Total Bilirubin 0.3 (0.0-1.0) mg/dL AST 16 (5-31) U/L ALT 13 (0-31) U/L Alkaline Phosphatase 92 (39-117) U/L Total Protein 6.4 L (6.5-8.0) g/dL Albumin 3.8 (3.5-5.0) g/dL Lipase 18 (8-78) U/L Discharge Plan Discharge Clinical Impression: Abdominal pain Patient Disposition: Home, Self-Care Instructions: Abdominal Pain (ED) Additional Instructions: cause of your abdominal pain is not clear likely from bowels spasm Drink plenty of fluids and follow-up with PCP/oncologist Prescriptions: No Action folic acid 1 mg tablet 1 mg PO DAILY 90 Days Qty: 90 3RF ondansetron 8 mg Tablet,Disintegrating 8 mg PO Q8H Qty: 60 3RF megestrol 400 mg/10 mL (40 mg/mL) Suspension 800 mg PO DAILY Qty: 600 3RF oxycodone [OxyContin] 20 mg Tablet,Oral Only,Ext.Rel.12 Hr 20 mg PO Q12H Qty: 60 0RF Rx Instructions: Partial Fill upon patient request. potassium chloride [K-Tab] 10 mEq Tablet Extended Release 20 meq PO DAILY Qty: 30 3RF cyanocobalamin (vitamin B-12) 1,000 mcg Tablet 1,000 mcg PO DAILY omeprazole 20 mg capsule,delayed release(DR/EC) 20 mg PO DAILY@0630 oxycodone 10 mg tablet 10 mg PO Q4H PRN (Reason: Breakthrough Pain, Severe) Rx Instructions: Partial Fill upon patient request cholecalciferol (vitamin D3) 50 mcg (2,000 unit) capsule 50 mcg PO FR oxycodone 10 mg tablet 10 mg PO Q8H PRN (Reason: Breakthrough Pain, Severe) 10 Days Qty: 30 0RF Rx Instructions: Partial Fill upon patient request; refill Rx only when due menthol-zinc oxide [Calmoseptine] 0.44-20.6 % ointment 1 appl topical QID PRN (Reason: perianal skin irritation) Qty: 113 0RF docusate sodium [Colace] 100 mg capsule 100 mg PO BID Qty: 60 2RF Interventions: ED Discharge Assessment Last Done: 04/16/23 14:07 Discharge Date/Time: 04/16/23 14:07
[2023-04-16 11:43] VITALS: BP 126/75; PULSE 80; RESP 18; O2SAT 100
--- NOTE | 2023-04-16 11:50 | PC.NURSE ---
pt is alert and oriented, skin appropriate for ethnicity, respirations even and unlabored, ls clear, and soft but tender on the right upper quadrant, pt denies n/v/d, vs stable
[2023-04-16 12:04] LABS: Hematocrit 28.1 % (37.0-47.0); Hemoglobin 9.2 g/dl (12.0-16.0); Mean Corpuscular HGB Conc 32.7 g/dl (31.0-35.0); Mean Corpuscular Hemoglobin 34.5 pg (27.0-33.0); Mean Corpuscular Volume 105.2 fL (80.0-98.0); Mean Platelet Volume 9.7 fL (9.4-12.3); NRBC Pct Auto 0.4 /100WBC (0.0-0.2); Platelet Count 184 X10*3/uL (160-400); Red Blood Count 2.67 X10*6/uL (4.20-5.50); Red Cell Distribution Width 18.5 % (11.0-16.0); White Blood Count 13.9 X10*3/uL (4.8-10.8)
[2023-04-16 12:19] LABS: Anion Gap 11 (12-20); Blood Urea Nitrogen 15 mg/dL (9-16); Carbon Dioxide 23 mmol/L (22-29); Chloride 108 mmol/L (96-108); Potassium 3.4 mmol/L (3.3-5.1); Sodium 139 mmol/L (135-145)
[2023-04-16 12:20] LABS: Alanine Aminotransferase 13 U/L (0-31); Albumin Level 3.8 g/dL (3.5-5.0); Alkaline Phosphatase 92 U/L (39-117); Aspartate Amino Transferase 16 U/L (5-31); Bilirubin Total 0.3 mg/dL (0.0-1.0); Calcium 9.2 mg/dL (8.4-10.2); Creatinine Clr Calc Pharmacy 55.4; Estimated Glomerular Filt Rate 59; Glucose Random 117 mg/dL (60-115); Lipase 18 U/L (8-78); Total Protein 6.4 g/dL (6.5-8.0)
[2023-04-16 13:16] LABS: Band Neutrophils Percent 8 % (3-5); Lymphocytes Absolute Manual 1.3 X10*3/uL (1.2-4.9); Lymphocytes Percent Manual 9 % (20-40); Monocytes Absolute Manual 0.7 X10*3/uL (0.1-1.2); Monocytes Percent Manual 5 % (2-11); Myelocytes Absolute 0.3 X10*/uL; Myelocytes Percent 2 %; Neutrophils Absolute Manual 11.7 X10*3/uL (2.0-8.3); Neutrophils Percent Manual 76 % (45-73); Nucleated Red Blood Cells 1 /100WBC (0-0)
[2023-04-16 13:17] LABS: Macrocytosis 1+ (5-14) /OIF; RBC Morphology NOTED; Tear Drop Cells 1+ (0-2) /OIF
[2023-04-16 13:18] LABS: Dohle Bodies PRESENT; Polychromasia 2+ (3-5) /OIF; Toxic Granulation PRESENT
[2023-04-16 13:24] LABS: Platelet Estimate NORMAL (NORMAL)
[2023-04-16 13:25] LABS: Platelet Morphology Comment NORMAL
[2023-04-16 14:06] VITALS: BP 122/83; PULSE 84; RESP 16; O2SAT 100
== END 2023-04-16 14:07 | disposition home or self-care (01) ==
PROVIDERS: Registered Nurse Emergency; Emergency Provider Internal Medicine; PCP Internal Medicine
DX: R10.11 Right upper quadrant pain (principal); C20 Malignant neoplasm of rectum; C78.02 Secondary malignant neoplasm of left lung; Z92.21 Personal history of antineoplastic chemotherapy; Z92.3 Personal history of irradiation; Z79.899 Other long term (current) drug therapy; Z87.891 Personal history of nicotine dependence; Z98.51 Tubal ligation status
CPT/HCPCS: 36415; 74176; 76705; 80053; 83690; 85007; 85027; 85610; 99284

== ENCOUNTER 2023-04-22 11:25 | Outpatient (REF) | payer OTHER, SELFPAY ==
--- NOTE | ~2023-04-22 | MM_ITS ---
EXAMINATION: MM SCREENING DIGITAL BREAST TOMOSYNTHESIS, BILATERAL CLINICAL INFORMATION: Screening. Asymptomatic. COMPARISON: Mammography: This study is compared with prior exams dating back to 2013. TECHNIQUE: Digital breast tomosynthesis is performed in both the craniocaudal and mediolateral oblique views along with computer-aided detection (CAD). Synthesized 2D images are generated from the tomosynthesis. FINDINGS: There are scattered areas of fibroglandular density (ACR BI-RADS breast composition Category b). There is an asymmetry in the superior aspect of the right breast, at the upper inner quadrant. Additional mammographic and targeted sonographic evaluation of this finding is advised. In the right breast, there are no significant masses, abnormal calcifications, or other abnormalities. MM/MM tomosynthesis screening BI IMPRESSION: Asymmetry of the upper inner quadrant of the right breast warrants additional mammographic and targeted sonographic evaluation. No mammographic signs of malignancy left breast. ASSESSMENT: BI-RADS BI-RADS 0 - Incomplete: Needs additional Imaging. RECOMMENDATION: 1. Additional views of the right breast 2. Targeted ultrasound if warranted after review of the additional views. 3. Radiology department staff will contact the patient for additional imaging. Additional Imaging required This examination should not preclude the clinical evaluation of a suspicious palpable abnormality. This patient's information was entered into a reminder system with a target due date for their next mammogram.
== END 2023-04-22 11:26 | disposition home or self-care (01) ==
LOC: HO.MAMMO 11:25
PROVIDERS: PCP Internal Medicine; Visit Provider Internal Medicine
DX: Z12.31 Encounter for screening mammogram for malignant neoplasm of breast (principal)
CPT/HCPCS: 77063; 77067

== ENCOUNTER → 2023-04-22 11:30 | Outpatient (BNV) | payer OTHER, SELFPAY | PROVIDERS: PCP Internal Medicine; Visit Provider Radiology Diagnostic Radiology | DX: Z12.31 Encounter for screening mammogram for malignant neoplasm of breast (principal) | CPT/HCPCS: 77063; 77067 ==

== ENCOUNTER 2023-04-28 11:16 | Outpatient (AMB) | payer OTHER, SELFPAY ==
--- NOTE | 2023-04-28 11:18 | A.OFFVIS_ITS ---
Intake Vital Signs 04/28/23 11:22 Height 5 ft 1 in Weight 119 lb BMI 22.5 BP 144/81 H Blood Pressure Location Lt brachial Position Sitting Pulse 130 H Intake Visit Reasons: Rectal Bleeding Intake Note: This patient presents for an assessment for rectal bleeding. Patient c/o; reports rectal bleeding, ? rectal fissure, reports diarrhea. Psychologist Experimental Required: No Accompanied by: Self / Same As Patient Allergies gabapentin Adverse Reaction (Unknown, Verified 04/28/23 11:23) dizziness, lightheadedness ibuprofen Adverse Reaction (Unknown, Verified 04/28/23 11:23) nausea and vomiting Medication List - Last Reconciled 04/28/23 by Max Frye MD cholecalciferol (vitamin D3) 50 mcg PO FR cyanocobalamin (vitamin B-12) 1,000 mcg PO DAILY diphenoxylate-atropine 2.5-0.025 mg (Lomotil) 1 tab PO TID docusate sodium (Colace) 100 mg PO BID folic acid 1 mg PO DAILY 90 days megestrol 800 mg (20 mL) PO DAILY menthol-zinc oxide 0.44-20.6 % (Calmoseptine) 1 appl topical QID PRN omeprazole 20 mg PO DAILY@0630 ondansetron 8 mg PO Q8H oxycodone 10 mg PO Q4H PRN oxycodone 10 mg PO Q8H PRN 10 days oxycodone ER (OxyContin) 20 mg PO Q12H potassium chloride ER (K-Tab) 20 mEq (2 x 10 mEq) PO DAILY HPI Rectal Bleeding HPI Details She has had significant perianal burning along with small amounts of blood on wiping. She says that this started after she had severe diarrhea. She states that her diarrhea has improved after she was started on Imodium but she continues to have loose stools which causes subsequent perianal burning. She continues to have chemotherapy. She otherwise says says she has had good oral intake and has been gaining some weight. [facility] Medical History Rectal cancer metastasized to lung (~2020) Mass of left lung Intractable pain Personal history of nicotine dependence Perianal dermatitis Vitamin D deficiency Gastroesophageal reflux disease Tubular adenoma H. pylori infection Chronic pain syndrome Sacroiliitis Lumbar back pain with radiculopathy affecting left lower extremity Surgical History History of lung surgery (~2022) History of colonoscopy History of tubal ligation (~1999) History of hemorrhoidectomy (~2007) History of low anterior resection of rectum (~07/2021) History of reversal of ileostomy (~12/2021) S/P anal fissurectomy (~2008) History of bursectomy (~2013) History of nasal polypectomy History of esophagogastroduodenoscopy (EGD) Family History Mother Diabetes HTN (hypertension) Father Diabetes Heart attack Brother Diabetes Heart problem HTN (hypertension) Maternal Aunt Breast cancer Sister Uterus cancer Maternal Aunt Breast cancer Mother Lung cancer Social History Household Members: Significant Other Housing: House Are you a primary neonatal intensive care unit nurse to a significant other at home: No Do you presently have visiting nurse or other home services: No Alcohol intake: never Patient Tobacco Use Status: Former Tobacco user Quit Date: 2020 service: No Current occupational status: unemployed and disabled Cognitive needs: No Hearing needs: No Vision needs: No Review of Systems Const Denies chills and Denies fever(s) Card Denies chest pain, Denies dyspnea and Denies dyspnea on exertion Resp Denies cough, Denies dyspnea and Denies dyspnea on exertion GI Reports loose stools Denies hematuria Musc Denies back pain and Denies limited range of motion Neuro Denies focal weakness and Denies convulsions Psych Denies depression and Denies mood swings Physical Exam Vital Signs: Last Vital Signs Pulse 130 H 04/28/23 11:22 BP 144/81 H 04/28/23 11:22 BMI result Body Mass Index 22.5 Const General: comfortable and no acute distress Resp Effort & Inspection: normal respiratory effort Cardio Rate: regular rate GI Palpation (GI): Soft to palpation, not firm and nontender Rectal Exam - Female: other (Significant perianal superficial ulceration, all around the anus) Assessment & Plan Assessment & Plan (1) Perianal dermatitis: Code(s): L30.9 - Dermatitis, unspecified Plan: She has significant superficial skin excoriation likely from her diarrhea along with her previous radiation. I have instructed her to continue to apply Calmoseptine as a barrier protectant. She should try to control her stools with Imodium or Lomotil. She can continue with chemo therapy for now. I told her to come back to the office any time she wants the perianal area checked. Coding Level of Care Code Est Pt Level 3 (89158) Diagnoses Perianal dermatitis L30.9
[2023-04-28 11:22] VITALS: BP 144/81; PULSE 130; BMI 22.5
== END 2023-04-28 11:45 | disposition home or self-care (01) ==
PROVIDERS: PCP Internal Medicine; Visit Provider Surgery
DX: L30.9 Dermatitis, unspecified (principal)
CPT/HCPCS: 99213

== ENCOUNTER → 2023-04-28 11:16 | Outpatient (BNVA) | payer OTHER, SELFPAY | PROVIDERS: PCP Internal Medicine; Visit Provider Surgery | DX: L30.8 Other specified dermatitis (principal); K62.5 Hemorrhage of anus and rectum; K21.9 Gastro-esophageal reflux disease without esophagitis; D12.6 Benign neoplasm of colon, unspecified; Z85.048 Personal history of other malignant neoplasm of rectum, rectosigmoid junction, and anus; Z85.118 Personal history of other malignant neoplasm of bronchus and lung; Z79.891 Long term (current) use of opiate analgesic | CPT/HCPCS: 99212 ==

== ENCOUNTER 2023-05-31 13:37 | Outpatient (REF) | payer OTHER, SELFPAY ==
--- NOTE | ~2023-05-31 | MM_ITS ---
EXAMINATION: MM DIAGNOSTIC DIGITAL BREAST TOMOSYNTHESIS, RIGHT CLINICAL INFORMATION: Evaluate one view asymmetry superior right MLO view only, seen on screening exam. COMPARISON: Mammography: 04/22/2023. TECHNIQUE: Digital right breast tomosynthesis is performed. Images are generated from the tomosynthesis. The following views are obtained: 3-D spot compression right MLO x2, and full-field 3-D right ML view. FINDINGS: There are scattered areas of fibroglandular density (ACR BI-RADS breast composition Category b). Diagnostic views demonstrate complete effacement of the 1 view asymmetry in the superior right breast. It also completely disappears on the full-field right ML view. There are no suspicious findings present in the right breast. MM/MM tomosynthesis added views R IMPRESSION: No persistent abnormalities right breast. No findings suspicious for malignancy. Recommend the patient resume routine annual screening. ASSESSMENT: BI-RADS BI-RADS 1 - Negative RECOMMENDATION: 1 year F/U Results were provided to the patient at time of visit by the technologist. This patient's information was entered into a reminder system with a target due date for their next mammogram.
== END 2023-05-31 13:38 | disposition home or self-care (01) ==
LOC: HO.MAMMO 13:37
PROVIDERS: PCP Internal Medicine; Visit Provider Internal Medicine
DX: N64.89 Other specified disorders of breast (principal)
CPT/HCPCS: 77061; 77065

== ENCOUNTER → 2023-05-31 14:00 | Outpatient (BNV) | payer OTHER, SELFPAY | PROVIDERS: PCP Internal Medicine; Visit Provider Radiology Diagnostic Radiology | DX: N64.89 Other specified disorders of breast (principal) | CPT/HCPCS: 77061; 77065 ==

== ENCOUNTER 2023-07-22 15:09 | Emergency (ER) | payer OTHER, SELFPAY ==
--- NOTE | ~2023-07-22 | US_ITS ---
EXAMINATION: US VENOUS ULTRASOUND WITH DOPPLER LOWER EXTREMITY, LEFT CLINICAL INFORMATION: Pain and swelling COMPARISON: None available. TECHNIQUE: Ultrasound of the deep veins is performed from the hip to the calf with compression sonography and color and pulse Doppler assessment. Spectral analysis with color-flow imaging is performed. FINDINGS: There is normal venous compression and respiratory variation and augmented flow. The visualized common femoral vein, superficial femoral vein, profunda femoral vein, popliteal vein, and the trifurcation region shows no evidence of deep venous thrombosis. There is no significant popliteal fossa cyst. If the patient's symptoms persist, followup ultrasound in 5 days 7 days might be of value to exclude proximal propagation from a non-visualized calf vein. US/US venous duplex LE LT IMPRESSION: No DVT demonstrated in the left lower extremity.
--- NOTE | ~2023-07-22 | XR_ITS ---
EXAMINATION: XR FOOT, LEFT CLINICAL INFORMATION: Pain and swelling COMPARISON: None available. TECHNIQUE: AP, lateral, and oblique views of the left foot. FINDINGS: The bones and soft tissues are normal. No fracture. Alignment is anatomic. Joint spaces are maintained. XR/XR foot LT min 3V IMPRESSION: Normal left foot.
--- NOTE | ~2023-07-22 | XR_ITS ---
EXAMINATION: XR ANKLE, LEFT CLINICAL INFORMATION: Swelling COMPARISON: None available. TECHNIQUE: AP, lateral, and mortise views of the left ankle. FINDINGS: No acute fracture or dislocation. XR/XR ankle LT min 3V IMPRESSION: No acute fracture or dislocation left ankle.
[2023-07-22 15:18] VITALS: BP 165/87; PULSE 93; RESP 16; TEMP 36.7; O2SAT 99; BMI 22.5
--- NOTE | 2023-07-22 15:18 | ED.LOWEXIN ---
HPI - Extremity Injury (Lower) General Chief Complaint: Extremity Injury, Lower Stated Complaint: L foot swelling and pain into leg Time Seen by Provider: 07/22/23 15:48 Source: patient, RN notes reviewed and old records reviewed Mode of arrival: ambulatory History of Present Illness HPI Narrative: 52-year-old female with a past medical history of H pylori, sacroiliitis, rectal cancer with Mets to lung, presenting to the ED complaining of atraumatic left lateral ankle pain and swelling x 1 month. Denies known injury, trauma or fall, weakness, calf pain, fever/chills Related Data Home Medications Medication Instructions Recorded Confirmed cyanocobalamin (vitamin B-12) 1,000 mcg PO DAILY 01/10/22 05/30/23 1,000 mcg tablet cholecalciferol (vitamin D3) 50 50 mcg PO FR 10/29/22 05/30/23 mcg (2,000 unit) capsule omeprazole 20 mg capsule,delayed 20 mg PO DAILY@0630 10/29/22 05/30/23 release oxycodone 10 mg tablet 10 mg PO Q4H PRN Breakthrough 10/29/22 05/30/23 Pain, Severe Previous Rx's Medication Instructions Recorded ondansetron 8 mg disintegrating 8 mg PO Q8H #60 tabs 01/28/23 tablet folic acid 1 mg tablet 1 mg PO DAILY 90 days #90 tabs 03/04/23 docusate sodium 100 mg capsule 100 mg PO BID #60 caps 03/17/23 (Colace) menthol 0.44 %-zinc oxide 20.6 % 1 appl topical QID PRN perianal 03/17/23 topical ointment (Calmoseptine) skin irritation #113 grams potassium chloride 10 mEq 20 meq (2 x 10 mEq) PO DAILY #30 03/22/23 tablet,extended release (K-Tab) tabs diphenoxylate-atropine 2.5 1 tab PO TID #60 tabs 04/25/23 mg-0.025 mg tablet (Lomotil) menthol 0.44 %-zinc oxide 20.6 % 1 appl topical QID PRN perianal 06/16/23 topical ointment (Calmoseptine) irritation #113 grams megestrol 400 mg/10 mL (40 mg/mL) 800 mg (20 mL) PO DAILY #600 mL 07/14/23 oral suspension oxycodone 20 mg tablet,crush 20 mg PO Q12H #60 tabs 07/15/23 resistant,extended release 12 hr (OxyContin) oxycodone 10 mg tablet 10 mg PO Q8H PRN Breakthrough 07/18/23 Pain, Severe 10 days #30 tabs ketorolac 10 mg tablet 10 mg PO TID PRN pain 5 days #15 07/22/23 tabs Allergies Allergy/AdvReac Type Severity Reaction Status Date / Time gabapentin AdvReac Unknown dizziness, Verified 05/17/23 15:36 lightheadedness ibuprofen AdvReac Unknown nausea and Verified 05/17/23 15:36 vomiting Review of Systems Review of Systems: Constitutional: No Fever, No Chills ENT/Mouth: No Ear Pain, No Nasal Congestion, No sore throat, No Rhinorrhea, No Swallowing Difficulty Cardiovascular: No Chest Pain, No SOB Respiratory: No Cough, No Sputum, No Wheezing Gastrointestinal: No Nausea, No Vomiting, No Abdominal pain Genitourinary: No Dysuria, No Urinary Frequency, No Hematuria, No Urinary Incontinence/retention, No Urgency, No Flank Pain Musculoskeletal: + joint pain, No Myalgias, + Joint Swelling Skin: No Skin Lesions, No rash Neuro: No Weakness, No Numbness, No Paresthesias Yes all other systems are reviewed and are negative Constitutional: Constitutional: Reports as per [facility] Past Medical History Attestation statement: The following information was validated with the patient. Source: old records reviewed Medical History Rectal cancer metastasized to lung (~2020) Mass of left lung Intractable pain Personal history of nicotine dependence Perianal dermatitis Vitamin D deficiency Gastroesophageal reflux disease Tubular adenoma H. pylori infection Chronic pain syndrome Sacroiliitis Lumbar back pain with radiculopathy affecting left lower extremity Surgical History History of lung surgery (~2022) History of colonoscopy History of tubal ligation (~1999) History of hemorrhoidectomy (~2007) History of low anterior resection of rectum (~07/2021) History of reversal of ileostomy (~12/2021) S/P anal fissurectomy (~2008) History of bursectomy (~2013) History of nasal polypectomy History of esophagogastroduodenoscopy (EGD) Family History Family History Mother Diabetes HTN (hypertension) Father Diabetes Heart attack Brother Diabetes Heart problem HTN (hypertension) Maternal Aunt Breast cancer Sister Uterus cancer Maternal Aunt Breast cancer Mother Lung cancer Social History Social History Household Members: Significant Other Housing: House Are you a primary veterinarian laboratory animal care to a significant other at home: No Do you presently have visiting nurse or other home services: No Alcohol intake: never Patient Tobacco Use Status: Former Tobacco user Quit Date: 2020 Advance Directives: No Advance Directives Information Provided: No service: No Current occupational status: unemployed and disabled Cognitive needs: No Hearing needs: No Vision needs: No Physical Exam Vital Signs: Vital Signs: Last Vital Signs Temp 98.1 F 07/22/23 15:18 Pulse 93 07/22/23 15:18 Resp 16 07/22/23 15:18 BP 165/87 H 07/22/23 15:18 Pulse Ox 99 07/22/23 15:18 O2 Del Method Room Air 07/22/23 15:18 BMI result Body Mass Index 22.5 Const: General: cooperative, healthy appearing and no acute distress Orientation/consciousness: patient oriented x3 Limitations: no limitations HEENT: Head: Yes normal to inspection and Yes atraumatic Ears: hearing grossly normal bilaterally General nose exam: Normal external nose present Face and sinus: Yes normal facial exam Eyes: General: appearance normal, both eyes and all related structures EOM: EOMs intact bilaterally Neck: Neck: Yes normal visual inspection and Yes no meningeal signs Resp: Effort & Inspection: normal respiratory effort and no respiratory distress Cardio: Rate: regular rate Skin: Rashes: no rashes Wounds: no wounds Neuro: General: patient oriented x3, tone normal and no meningeal signs Cranial nerves: Yes CN's II-XII intact bilaterally Gait exam (Neuro): Normal gait present Extrem: Other: +left lateral ankle/proximal foot w/swelling and ttp. No erythema/warmth, +diffusely ttp. No crepitus, no warmth. NV intact Course Course Course Narrative: This is an RME: Additional HPI, ROS, PE not included below will be deferred to primary provider. Patient is a 52-year-old female who presents emergency department for evaluation of pain, swelling to left lateral ankle x 1 month, progressively worsening, pain radiating up into leg. Denies known injury. Hx CA, denies hx DVT/PE Plan: labs, US, XR -1620--chronic anemia. No leukocytosis. Labs otherwise reassuring -uric acid negative XR foot LT min 3V IMPRESSION: Normal left foot. US venous duplex LE LT IMPRESSION: No DVT demonstrated in the left lower extremity. >JOSSE wrap applied for comfort & stability Results discussed with patient including worrisome signs and symptoms and strict return precautions, and when to return to the emergency department. They verbalized understanding and feel safe for discharge at this time. Medications Administered Discontinued Medications Generic Name Dose Route Start Last Admin Trade Name Freq PRN Reason Stop Dose Admin Ketorolac Tromethamine 30 mg 07/22/23 16:26 07/22/23 17:01 Ketorolac Tromethamine 30 Mg/Ml Vial IM 07/22/23 16:27 30 mg ONCE ONE Administration Ondansetron HCl 4 mg 07/22/23 16:26 07/22/23 17:00 Ondansetron Odt 4 Mg Tab.Rapdis TRANSLINGU 07/22/23 16:27 4 mg ONCE ONE Administration Medical Decision Making Medical Decision Making MDM Narrative: 52-year-old female with a past medical history of H pylori, sacroiliitis, rectal cancer with Mets to lung, presenting to the ED complaining of atraumatic left lateral ankle pain and swelling x 1 month. On exam VSS, NAD, nontoxic appearing, PE as above. Concern for fx vs sprain vs gout vs DVT. low susupcion for septic joint/arthritis or compartment syndrome Plan: Labs, XR & US ordered in triage Please refer to course for remaining clinical decision making, interpretation of labs/imaging results, and discussions with consultants and/or family members. Differential Diagnosis Differential Diagnoses: The differential diagnosis associated with the presentation includes As above Admission/Observation Consideration of admission/observation: Escalation of care including admission/observation considered Lab Data [facility] Lab Attestation statement: I reviewed the patient's lab results. 07/22/23 15:52 07/22/23 15:52 Labs: Lab Results 07/22/23 Range/Units 15:52 WBC 6.5 (4.8-10.8) X10*3/uL RBC 3.28 L (4.20-5.50) X10*6/uL Hgb 10.7 L (12.0-16.0) g/dl Hct 33.4 L (37.0-47.0) % MCV 101.8 H (80.0-98.0) fL MCH 32.6 (27.0-33.0) pg MCHC 32.0 (31.0-35.0) g/dl RDW 15.5 (11.0-16.0) % Plt Count 201 D (160-400) X10*3/uL MPV 9.7 (9.4-12.3) fL Immature Gran % (Auto) 0.6 H (0.0-0.4) % Neut % (Auto) 70.8 (45-73) % Lymph % (Auto) 18.5 L (20-40) % [place] % (Auto) 9.7 (2-11) % Eos % (Auto) 0.2 (0-4) % Baso % (Auto) 0.2 (0-2) % Lymph # (Auto) 1.2 (1.2-4.9) X10*3/uL [place] # (Auto) 0.6 (0.1-1.2) X10*3/uL Eos # (Auto) 0.0 (0.0-0.4) X10*3/uL Baso # (Auto) 0.0 (0.0-0.2) X10*3/uL Abs Immat Gran (auto) 0.04 H (0.00-0.03) X10*3/uL Absolute Neuts (auto) 4.6 (2.0-8.3) x10*3/uL Absolute Nucleated RBC 0.000 (0.0-0.012) X10*3/uL Nucleated RBC % (auto) 0.0 (0.0-0.2) /100WBC Sodium 141 (135-145) mmol/L Potassium 3.8 (3.3-5.1) mmol/L Chloride 106 (96-108) mmol/L Carbon Dioxide 25 (22-29) mmol/L Anion Gap 14 (12-20) BUN 8 L (9-16) mg/dL Creatinine 1.11 (0.5-1.4) mg/dL Estim Creat Clear Calc 42.1 Estimated GFR 51 Random Glucose 96 (60-115) mg/dL Uric Acid 5.1 (2.4-5.7) mg/dL Calcium 8.8 D (8.4-10.2) mg/dL Total Bilirubin 0.3 (0.0-1.0) mg/dL AST 23 (5-31) U/L ALT 12 (0-31) U/L Alkaline Phosphatase 84 (39-117) U/L Total Protein 6.8 (6.5-8.0) g/dL Albumin 3.8 (3.5-5.0) g/dL Independent Interpretation I performed an independent interpretation of an: Ultrasound Radiology Impression Discussion of test interpretation with radiology: I have reviewed the radiologist's reading. External Record Review External record reviewed: Inpatient record, Office record, Outpatient record, Prior outpatient labs, Prior outpatient radiology, Primary care record and Outside ED record Tests considered The following testing was considered but not selected: As above Prescription Management I considered prescription management with: Pain Medication Discharge Plan Discharge Clinical Impression: Ankle swelling, Ankle pain Patient Disposition: Home, Self-Care Instructions: Swollen Joint (ED) Additional Instructions: Your blood work and x-ray and ultrasound are reassuring wear Josse wrap for compression/comfort Toradol as an anti-inflammatory/pain medication, take with food. Do not take both Toradol, ibuprofen/Aleve/Motrin as there similar medications In addition take Tylenol Follow-up with her doctor Prescriptions: New ketorolac 10 mg tablet 10 mg PO TID PRN (Reason: pain) 5 Days Qty: 15 0RF No Action folic acid 1 mg tablet 1 mg PO DAILY 90 Days Qty: 90 3RF menthol-zinc oxide [Calmoseptine] 0.44-20.6 % ointment 1 appl topical QID PRN (Reason: perianal irritation) Qty: 113 2RF oxycodone 10 mg tablet 10 mg PO Q8H PRN (Reason: Breakthrough Pain, Severe) 10 Days Qty: 30 0RF Rx Instructions: Partial Fill upon patient request; refill Rx only when due ondansetron 8 mg Tablet,Disintegrating 8 mg PO Q8H Qty: 60 3RF potassium chloride [K-Tab] 10 mEq Tablet Extended Release 20 meq PO DAILY Qty: 30 3RF diphenoxylate-atropine [Lomotil] 2.5-0.025 mg Tablet 1 tab PO TID Qty: 60 3RF megestrol 400 mg/10 mL (40 mg/mL) Suspension 800 mg PO DAILY Qty: 600 3RF oxycodone [OxyContin] 20 mg Tablet,Oral Only,Ext.Rel.12 Hr 20 mg PO Q12H Qty: 60 0RF Rx Instructions: Partial Fill upon patient request. cyanocobalamin (vitamin B-12) 1,000 mcg Tablet 1,000 mcg PO DAILY omeprazole 20 mg capsule,delayed release(DR/EC) 20 mg PO DAILY@0630 oxycodone 10 mg tablet 10 mg PO Q4H PRN (Reason: Breakthrough Pain, Severe) Rx Instructions: Partial Fill upon patient request cholecalciferol (vitamin D3) 50 mcg (2,000 unit) capsule 50 mcg PO FR menthol-zinc oxide [Calmoseptine] 0.44-20.6 % ointment 1 appl topical QID PRN (Reason: perianal skin irritation) Qty: 113 0RF docusate sodium [Colace] 100 mg capsule 100 mg PO BID Qty: 60 2RF Referrals: [facility] [Provider Group] Ky Lin MD [Primary Care Provider] - 3 days
[2023-07-22 15:55] LABS: MANUAL DIFF FLAG NO
[2023-07-22 15:57] LABS: Basophils Percent Auto 0.2 % (0-2); Eosinophils Percent Auto 0.2 % (0-4); Hematocrit 33.4 % (37.0-47.0); Hemoglobin 10.7 g/dl (12.0-16.0); Imm Gran Abs Auto 0.04 X10*3/uL (0.00-0.03); Imm Gran Pct Auto 0.6 % (0.0-0.4); Lymphocytes Absolute Auto 1.2 X10*3/uL (1.2-4.9); Lymphocytes Percent Auto 18.5 % (20-40); Mean Corpuscular Hemoglobin 32.6 pg (27.0-33.0); Mean Corpuscular Volume 101.8 fL (80.0-98.0); Mean Platelet Volume 9.7 fL (9.4-12.3); Monocytes Absolute Auto 0.6 X10*3/uL (0.1-1.2); Monocytes Percent Auto 9.7 % (2-11); Neutrophils Absolute Auto 4.6 x10*3/uL (2.0-8.3); Neutrophils Percent Auto 70.8 % (45-73); Platelet Count 201 X10*3/uL (160-400); Red Blood Count 3.28 X10*6/uL (4.20-5.50); Red Cell Distribution Width 15.5 % (11.0-16.0); White Blood Count 6.5 X10*3/uL (4.8-10.8)
[2023-07-22 16:18] LABS: Alanine Aminotransferase 12 U/L (0-31); Albumin Level 3.8 g/dL (3.5-5.0); Alkaline Phosphatase 84 U/L (39-117); Anion Gap 14 (12-20); Aspartate Amino Transferase 23 U/L (5-31); Bilirubin Total 0.3 mg/dL (0.0-1.0); Blood Urea Nitrogen 8 mg/dL (9-16); Calcium 8.8 mg/dL (8.4-10.2); Carbon Dioxide 25 mmol/L (22-29); Chloride 106 mmol/L (96-108); Creatinine Clr Calc Pharmacy 42.1; Estimated Glomerular Filt Rate 51; Glucose Random 96 mg/dL (60-115); Potassium 3.8 mmol/L (3.3-5.1); Sodium 141 mmol/L (135-145); Total Protein 6.8 g/dL (6.5-8.0)
[2023-07-22 16:36] LABS: Uric Acid 5.1 mg/dL (2.4-5.7)
[2023-07-22] MEDS: Ondansetron ODT 4 MG TAB.RAPDIS TRANSLINGU (17:00)
[2023-07-22] MEDS: Ketorolac Tromethamine 30 MG/ML VIAL IM (17:01)
== END 2023-07-22 17:30 | disposition home or self-care (01) ==
PROVIDERS: Nurse Practitioner Family; Emergency Provider Emergency Medicine Emergency Medical Services; PCP Internal Medicine
DX: M25.472 Effusion, left ankle (principal); M25.572 Pain in left ankle and joints of left foot; M79.605 Pain in left leg
CPT/HCPCS: 36415; 73610; 73630; 80053; 84550; 85025; 93971; 96372; 99283; 99284; J1885

== ENCOUNTER 2023-08-26 09:13 | Outpatient (AMB) | payer OTHER, SELFPAY ==
[2023-08-26 09:32] VITALS: BP 118/80; PULSE 100; O2SAT 99; BMI 22.9
--- NOTE | 2023-08-26 09:32 | MHC.PC.OV ---
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 Accompanied by: Self / Same As Patient Allergies gabapentin Adverse Reaction (Unknown, Verified 08/26/23 10:09) dizziness, lightheadedness ibuprofen Adverse Reaction (Unknown, Verified 08/26/23 10:09) nausea and vomiting Medication List - Last Reconciled 08/26/23 by Ky Lin MD cholecalciferol (vitamin D3) 50 mcg PO FR cyanocobalamin (vitamin B-12) 1,000 mcg PO DAILY diphenoxylate-atropine 2.5-0.025 mg (Lomotil) 1 tab PO TID docusate sodium (Colace) 100 mg PO BID folic acid 1 mg PO DAILY 90 days ketorolac 10 mg PO TID PRN 5 days megestrol 800 mg (20 mL) PO DAILY menthol-zinc oxide 0.44-20.6 % (Calmoseptine) 1 appl topical QID PRN menthol-zinc oxide 0.44-20.6 % (Calmoseptine) 1 appl topical QID PRN omeprazole 20 mg PO DAILY@0630 ondansetron 8 mg PO Q8H oxycodone 10 mg PO Q4H PRN oxycodone 10 mg PO Q8H PRN 10 days oxycodone ER (OxyContin) 20 mg PO Q12H potassium chloride ER (K-Tab) 20 mEq (2 x 10 mEq) PO DAILY Tobacco use date assessed: 08/26/23 Dental Screening Dental Screen Date: 08/26/23 Did you have a dental visit in the last 12 months?: Yes Did you have a dental problem in the last 6 months where you did not have access to dental care?: No Was dental information given to patient?: Patient has dentist HPI follow up HPI Details Patient comes in today for her follow up visit She went to the ER about a month ago for increased left ankle pain and swelling Now recalls that she likely sprained her ankle while trying to do some light workout / exercise around that time X-rays of the ankle done at the ER came out normal and states that her ankle symptoms have since resolved completely Patient reportedly completed her adjuvant chemotherapy with FOLFIRI and Avastin a few weeks ago and she is scheduled for a repeat CT in a couple of weeks for follow up States that she feels okay overall She denies any headaches or dizziness Denies any chest pains, no increased SOB No nausea/vomiting, no abdominal pain No change in bowel habits noted Still has increased pain over her lower back and on and off rectal pain Needs her Oxycodone and Folic Acid Rx refilled today [facility] Medical History Rectal cancer metastasized to lung (~2020) Mass of left lung Intractable pain Personal history of nicotine dependence Perianal dermatitis Vitamin D deficiency Gastroesophageal reflux disease Tubular adenoma H. pylori infection Chronic pain syndrome Sacroiliitis Lumbar back pain with radiculopathy affecting left lower extremity Surgical History History of lung surgery (~2022) History of colonoscopy History of tubal ligation (~1999) History of hemorrhoidectomy (~2007) History of low anterior resection of rectum (~07/2021) History of reversal of ileostomy (~12/2021) S/P anal fissurectomy (~2008) History of bursectomy (~2013) History of nasal polypectomy History of esophagogastroduodenoscopy (EGD) Family History Mother Diabetes HTN (hypertension) Father Diabetes Heart attack Brother Diabetes Heart problem HTN (hypertension) Maternal Aunt Breast cancer Sister Uterus cancer Maternal Aunt Breast cancer Mother Lung cancer Social History Household Members: Significant Other Housing: House Are you a primary family member caretaker to a significant other at home: No Do you presently have visiting nurse or other home services: No Alcohol intake: never Patient Tobacco Use Status: Former Tobacco user Quit Date: 2020 e-Cigarette/Vaping Use: Never Used service: No Current occupational status: unemployed and disabled Cognitive needs: No Hearing needs: No Vision needs: No Questionnaire PHQ-9 Over the last 2 weeks, how often have you been bothered by any of the following problems? 1. Little interest or pleasure in doing things: several days 2. Feeling down, depressed, or hopeless: several days 3. Trouble falling or staying asleep, or sleeping too much: several days 4. Feeling tired or having little energy: several days 5. Poor appetite or overeating: several days 6. Feeling bad about yourself - or that you are a failure or have let yourself or your family down: several days 7. Trouble concentrating on things, such as reading the newspaper or watching television: several days 8. Moving or speaking so slowly that other people could have noticed. Or the opposite - being so fidgety or restless that you have been moving around a lot more than usual: several days 9. Thoughts that you would be better off or of hurting yourself in some way: not at all Total score: 8 Depression Screening Interpretation: Positive Depression Screening Follow-up: Existing condition and Follow-up Visit Requested Depression Screening Done: Yes 11767 - PHQ-9 Billing: Yes Source: Developed by Drs. Chilango Rios, Ana Cash, Ziggy Rios and colleagues, with an educational eleuterio from [employer]. Thrive Questionnaire Date Thrive assessed: 08/26/23 I am a: Patient What is your living situation today?: I have a steady place to live Within the past 12 months, did the food you bought not last and you didn't have the money to get more?: Never true Within the past 12 months, did you worry whether your food would run out before you got money to buy more?: Never true Do you have trouble paying for medicines?: No Do you have trouble getting transportation to medical appointments?: No Do you have trouble paying your heating and electricity bill?: No Do you have trouble taking care of your child, family member or friend?: No Do you have trouble with day-to-day activities such as bathing, preparing meals, shopping, managing finances, etc.?: No Are you currently unemployed and looking for a job?: No Are you interested in more education?: No Please select the resources that you would like help with: None Currently or been in a relationship where the following occur: no concerns reported THRIVE Score: 0 AUDIT C Alcohol Use Questionnaire (AUDIT-C) 1. How often do you have a drink containing alcohol?: Never 3. How often do you have six or more drinks on one occasion?: Never Total Score: 0 Score Reviewed/Action Taken: Yes TACHO-7 AMB Questionnaire TACHO-7 Date TACHO - 7 assessed: 08/26/23 Feeling nervous, anxious, or on edge: 0 = Not at all Not being able to stop or control worryin = Not at all Worrying too much about different things: 0 = Not at all Trouble relaxin = Not at all Being so restless that it is hard to sit still: 0 = Not at all Becoming easily annoyed or irritable: 0 = Not at all Feeling afraid as if something awful might happen: 0 = Not at all Total TACHO-7 score (0-4 normal; 5-9 mild; 10-14 moderate; 15-21 severe): 0 Source: Developed by Drs. Chilango Rios, Ana Cash, Ziggy Rios and colleagues, with an educational eleuterio from [employer]. Review of Systems Const Denies chills, Reports fatigue, Denies fever(s) and Denies headache(s) ENT Denies dysphagia, Denies dizziness, Denies headache(s), Denies neck pain, Denies odynophagia and Denies sore throat Card Denies chest pain, Denies palpitations and Denies dyspnea Resp Denies cough and Denies dyspnea GI Details: (+) recurrent rectal burning sensation Denies abdominal pain, Denies constipation, Denies dysphagia, Denies heartburn, Denies diarrhea, Denies nausea, Denies odynophagia and Denies vomiting Details: c/o deep pelvic pain - S/P low anterior resection of rectum in 07/2021 Denies difficulty voiding, Denies nocturia and Denies dysuria Musc Reports back pain (over the lower back) and Denies neck pain Skin/Breast Denies rash Neuro Denies dizziness and Denies headache(s) Endo Reports fatigue and Denies palpitations Physical exam (Primary Care) Vital Signs: Last Vital Signs Pulse 100 08/26/23 09:32 BP 118/80 08/26/23 09:32 Pulse Ox 99 08/26/23 09:32 Oxygen Delivery Method Room Air 08/26/23 09:32 BMI result Body Mass Index 22.9 Tobacco/Smoking Status: Tobacco use Status Tobacco use date assessed 08/26/23 08/26/23 09:33 Patient Tobacco Use Status Former Tobacco user 08/26/23 09:33 e-Cigarette/Vaping Use Never Used 08/26/23 09:33 PHQ-9: PHQ-9 Score PHQ-9: Total score 8 08/26/23 09:40 Depression Screening Interpretation: Positive Depression Screening Follow-up: Existing condition and Follow-up Visit Requested Thrive Assessment: Date of Thrive Assessment Date Thrive assessed 08/26/23 08/26/23 09:33 Currently or been in a relationship where the following occur: no concerns reported Const General: no acute distress and alert HENMT Ears: TM's normal bilaterally and EAC's normal Throat: Yes posterior oropharynx normal and Yes tonsils normal (no TP congestion) Neck Neck: Yes no lymphadenopathy and Yes supple Resp Auscultation: clear to auscultation bilaterally, no rales and no wheezes Cardio Rate: regular rate Rhythm: regular rhythm Heart sounds: no murmurs GI Palpation (GI): Soft to palpation and nontender Auscultation: normal bowel sounds Back/Spine/Pelvis Thoracic/Lumbar Spine: lumbar spinal tenderness Skin Rashes: no rashes Extrem General: Yes no clubbing, cyanosis or edema Assessment and Plan Assessment & Plan (1) Rectal cancer metastasized to lung: Onset Date: ~2020 Comment: (Adenocarcinoma - s/p resection 07/31/21, radiation and Xeloda - met to lung s/p LLL wedge 10/2022) Code(s): C20 - Malignant neoplasm of rectum; C78.00 - Secondary malignant neoplasm of unspecified lung Plan: Was first seen incidentally on abdominal and pelvic CT done in July [address] done on 09/07/2022 confirmed the 1.5 cm left lower lobe lung mass with weak FDG activity, suspicious for malignancy S/P VATS and wedge resection by Dr Neil in October 2022 Started on FOLFIRI with Avastin on 02/09/2023 and completed adjuvant chemotherapy a few weeks ago Is scheduled for repeat chest CT in a couple of weeks on 09/07/2023 Follow up with oncology as scheduled (2) Adenocarcinoma of rectum: Onset Date: ~2020 Comment: (Invasive Adenocarcinoma - s/p resection 07/31/21, radiation and Xeloda - mets to lung s/p LLL wedge 10/2022) Code(s): C20 - Malignant neoplasm of rectum Plan: S/P surgical (low anterior) resection and loop ileostomy by Dr. Hackett at [facility] in [place] on 07/31/2021; later underwent ileostomy reversal on 01/08/2022 also at [facility] She completed radiation therapy and Xeloda in 11/2021; was then treated with modified FOLFOX 6 but repeat imaging studies earlier this year showed (+) lung mets for which she underwent wedge resection and recently completed adjuvant chemotherapy Follow up with oncology (Dr. Macdonald) as scheduled (3) Lumbar back pain with radiculopathy affecting left lower extremity: Code(s): M54.16 - Radiculopathy, lumbar region Plan: Reinforced activity and weight-lifting restrictions Was seeing Pain Management for follow-up previously and was considering other treatment options, including intrathecal delivery system, but these were all put on hold when she was diagnosed with rectal cancer a couple of years ago She had an appointment with Dr. Aguilar on 06/29/22 but she reportedly overslept and missed her appt then and has not been back to see pain management since Continue Oxycodone 10 mg Q 8 hours PRN for now - Rx refilled (4) Gastroesophageal reflux disease: Code(s): K21.9 - Gastro-esophageal reflux disease without esophagitis Qualifiers: Esophagitis presence: esophagitis presence not specified Qualified Code(s): K21.9 - Gastro-esophageal reflux disease without esophagitis Plan: Dietary restrictions reinforced Continue Omeprazole 20 mg QD (5) Vitamin D deficiency: Code(s): E55.9 - Vitamin D deficiency, unspecified Plan: Continue Vitamin D3 2000 units QD (6) Anxiety: Code(s): F41.9 - Anxiety disorder, unspecified Plan: Continue Hydroxyzine 25 mg BID PRN Plan Follow up in 3 months Medications: Refilled oxycodone Partial Fill upon patient request; refill Rx only when due 10 mg PO Q8H 10 days PRN 30 tabs 0RF Breakthrough Pain, Severe folic acid 1 mg PO DAILY 90 days 90 tabs 3RF Coding Level of Care Code Est Pt Level 4 (44567) Diagnoses Rectal cancer metastasized to lung C20; C78.00 Adenocarcinoma of rectum C20 Lumbar back pain with radiculopathy affecting left lower extremity M54.16 Gastroesophageal reflux disease, unspecified whether esophagitis present K21.9 Esophagitis presence: esophagitis presence not specified Vitamin D deficiency E55.9 Anxiety F41.9
== END 2023-08-26 10:13 | disposition home or self-care (01) ==
PROVIDERS: PCP Internal Medicine; Visit Provider Internal Medicine
DX: C20 Malignant neoplasm of rectum (principal); C78.00 Secondary malignant neoplasm of unspecified lung; M54.16 Radiculopathy, lumbar region; K21.9 Gastro-esophageal reflux disease without esophagitis; E55.9 Vitamin D deficiency, unspecified; F41.9 Anxiety disorder, unspecified
CPT/HCPCS: 99214

== ENCOUNTER 2023-09-07 10:39 | Outpatient (REF) | payer MEDICARE, MEDICAID, SELFPAY ==
--- NOTE | ~2023-09-07 | CT_ITS ---
EXAMINATION: CT CHEST WITH CONTRAST CLINICAL INFORMATION: Pulmonary metastases COMPARISON: CT chest 02/04/2023 TECHNIQUE: Multidetector volumetric CT imaging of the chest was obtained after the administration of 65 mL of Omnipaque 350 intravenous contrast without immediate adverse reactions. Axial MIP volume rendering provided. Sagittal and coronal reformatted images were obtained. This CT examination was performed using dose optimization techniques as appropriate, variously including the following: *Automated exposure control *Adjustment of mA and/or kV according to patient size (this includes techniques or standardized protocols for targeted exams where dose is matched to indication/reason for exam; i.e. extremities or head) *Use of iterative reconstruction technique DLP: 82 mGy-cm FINDINGS: LUNGS: Frothy secretions in the trachea new from prior suggesting aspiration. Stable post surgical changes of left lower lobe wedge resection. No new suspicious or enlarging pulmonary nodule. PLEURA: No pleural effusion. MEDIASTINUM: No cardiomegaly. Aorta and pulmonary artery are normal in caliber. No mediastinal lymphadenopathy. No hilar lymphadenopathy. CORONARY ARTERY CALCIFICATION: No coronary artery calcification appreciated. CHEST WALL/AXILLA: No axillary or internal mammary lymphadenopathy. No right chest wall port catheter tip terminates in in the right atrium similar to prior. UPPER ABDOMEN: Markedly hypoattenuating hepatic parenchyma compatible with hepatic steatosis with focal fat along the falciform ligament similar to prior. OSSEOUS STRUCTURES: Unremarkable. CT/CT chest w IV con IMPRESSION: 1. No evidence of metastatic disease in the chest. 2. Frothy secretions in the trachea new from prior suggesting aspiration. 3. Markedly hypoattenuating hepatic parenchyma compatible with hepatic steatosis with focal fat along the falciform ligament similar to prior.
[2023-09-07] MEDS: iohexoL 350 MG/ML 100 ML INFUS..BTL 65 ML IV (12:27)
[2023-09-08 06:25] LABS: Creatinine POC 0.6 mg/dL (0.5-1.4); GFR POC > 60
== END 2023-09-07 10:40 | disposition home or self-care (01) ==
LOC: HO.CT 10:39
PROVIDERS: PCP Internal Medicine; Visit Provider Internal Medicine Medical Oncology
DX: C20 Malignant neoplasm of rectum (principal); C78.00 Secondary malignant neoplasm of unspecified lung
CPT/HCPCS: 71260; 82565; Q9967

== ENCOUNTER 2023-09-23 10:37 | Outpatient (AMB) | payer MEDICARE, MEDICAID, SELFPAY ==
[2023-09-23 10:51] VITALS: BMI 22.5
--- NOTE | 2023-09-23 10:51 | A.OFFVIS_ITS ---
Intake Vital Signs 09/23/23 10:51 Height 5 ft 1 in Weight 119 lb BMI 22.5 Intake Visit Reasons: N/P left ankle pain/ ref oncology Intake Note: Cynthia 53 year old female who presents today for an evaluation of left foot pain. Patient reports she is having pain and swelling on top of her foot since June, she then twisted her ankle very lightly and increased her pain. Pain when walking, and bearing weight. Currently her pain is better. Denies any recent injury. Seen in ED 07/22/23 where xrays were taken and referred to Orthopedic for further evaluation. Hx of rectal cancer with Mets to lung & Hx of neuropathy Allergies gabapentin Adverse Reaction (Unknown, Verified 09/23/23 11:03) dizziness, lightheadedness ibuprofen Adverse Reaction (Unknown, Verified 09/23/23 11:03) nausea and vomiting HPI N/P left ankle pain/ ref oncology HPI Details 53-year-old female who presents to the o ice today for evaluation of left foot pain since June. She reports she also twisted her ankle very lightly which worsened her pain. She was seen at ED on 07/22/23 where x-rays were performed and she was referred to our office for further evaluation. She currently states she has improvement in her pain however she does experiences pain and occasional swelling in her foot which is aggravated with ambulation. She denies any recent injury. She has a history of neuropathy. She also has a history of rectal cancer with Mets to lung. She does not have a history of gout. [facility] Medical History Rectal cancer metastasized to lung (~2020) Mass of left lung Intractable pain Personal history of nicotine dependence Perianal dermatitis Vitamin D deficiency Gastroesophageal reflux disease Tubular adenoma H. pylori infection Chronic pain syndrome Sacroiliitis Lumbar back pain with radiculopathy affecting left lower extremity Surgical History History of lung surgery (~2022) History of colonoscopy History of tubal ligation (~1999) History of hemorrhoidectomy (~2007) History of low anterior resection of rectum (~07/2021) History of reversal of ileostomy (~12/2021) S/P anal fissurectomy (~2008) History of bursectomy (~2013) History of nasal polypectomy History of esophagogastroduodenoscopy (EGD) Family History Mother Diabetes HTN (hypertension) Father Diabetes Heart attack Brother Diabetes Heart problem HTN (hypertension) Maternal Aunt Breast cancer Sister Uterus cancer Maternal Aunt Breast cancer Mother Lung cancer Social History Household Members: Significant Other Housing: House Are you a primary medicare compliance auditor to a significant other at home: No Do you presently have visiting nurse or other home services: No Alcohol intake: never Patient Tobacco Use Status: Former Tobacco user Quit Date: 2020 e-Cigarette/Vaping Use: Never Used service: No Current occupational status: unemployed and disabled Cognitive needs: No Hearing needs: No Vision needs: No Review of Systems Const All systems reviewed & are unremarkable except as noted in HPI and below Physical Exam Vital Signs: BMI result Body Mass Index 22.5 Const General: cooperative, healthy appearing, comfortable, no acute distress, well developed and alert Orientation/consciousness: patient oriented x3 HEENT Head: Yes normal to inspection, Yes normocephalic and Yes atraumatic Eyes General: appearance normal, both eyes and all related structures Resp Effort & Inspection: normal respiratory effort and able to speak in complete sentences Cardio Rate: regular rate Peripheral pulses: Peripheral pulses 2+ throughout GI Palpation (GI): Soft to palpation Skin Lesions: no lesions Rashes: no rashes Neuro General: patient oriented x3 Extrem Other: Left foot: Normal to inspection. She has mild tenderness over top of the foot in line with the 1st and 2nd metatarsal with mild swelling. No open wounds. She has no tenderness over the medial or lateral malleolus. Full ankle ROM without pain. NVI. Results Reviewed Results Reviewed: xrays of the left foot obtained on 07/22/23 are negative for acute or chronic abnormalities. Assessment & Plan Assessment & Plan (1) Contusion of left foot: Code(s): S90.32XA - Contusion of left foot, initial encounter Qualifiers: Encounter type: initial encounter Qualified Code(s): S90.32XA - Contusion of left foot, initial encounter Plan An MRI of the left foot has been ordered to further evaluate the source of her pain. I did offer her a walking boot which she declined. She will see me back o nce the scan is complete. Orders: Orders MR foot LT wo con Today S93.602A - Unspecified sprain of left foot, initial encounter Patient Instructions: Scribed for Stephanie Orantes PA-C, by Johan Jaime medical laboratory technical officer, on 09/23/2023 at 11:00 AM EST. I, Stephanie Orantes PA-C, have personally reviewed and agree with the information entered by the scribe. Coding Level of Care Code New Pt Level 3 (47011) Diagnoses Contusion of left foot, initial encounter S90.32XA Encounter type: initial encounter
== END 2023-09-23 11:17 | disposition home or self-care (01) ==
PROVIDERS: PCP Internal Medicine; Visit Provider Physician Assistant
DX: S90.32XA Contusion of left foot, initial encounter (principal)
CPT/HCPCS: 99203

== ENCOUNTER → 2023-09-23 10:37 | Outpatient (BNVA) | payer MEDICARE, MEDICAID, SELFPAY | PROVIDERS: PCP Internal Medicine; Visit Provider Physician Assistant | DX: M79.672 Pain in left foot (principal); S90.32XA Contusion of left foot, initial encounter; X58.XXXA Exposure to other specified factors, initial encounter; Y93.9 Activity, unspecified; Y92.9 Unspecified place or not applicable; Y99.9 Unspecified external cause status | CPT/HCPCS: 99202 ==

== ENCOUNTER → 2023-10-18 09:59 | Outpatient (REF) | payer MEDICARE, MEDICAID, SELFPAY ==
--- NOTE | ~2023-10-18 | NM_ITS ---
EXAMINATION: NM BONE SCAN OF THE WHOLE BODY CLINICAL INFORMATION: Left hip and ankle pain. Also history of rectal cancer. Patient states left ankle sprain a few months ago. COMPARISON: No previous bone scan is available for comparison. Radiographs of the left foot and ankle dated 07/22/[address] scan of the chest dated 09/07/2023 are available for comparison. TECHNIQUE: Multiple gamma scintillation camera images of the whole body were performed 3 hours following the intravenous administration of 19 mCi Tc-99m MDP. FINDINGS: In the head, no significant abnormalities are present. In the thoracic cage and upper extremities, there is minimally increased activity in the sternoclavicular joints bilaterally. In the spine, no significant abnormalities are present. In the pelvis, there is a focus of moderately increased activity in the mid right iliac wing. There is also mildly increased activity in the inferior aspect of the sacroiliac minimally increased activity in the superior lip of the acetabula bilaterally is also noted. Joints bilaterally. In the lower extremities, there is minimally increased activity in the lateral compartment of the right knee. There is a small focus of mildly increased activity in the dorsal aspect of the mid right foot. There is also minimally increased activity present in the medial aspect of the left ankle. No other definite bony abnormalities are noted. The urinary bladder and faint visualization of both kidneys are noted. NM/NM bone scan whole body IMPRESSION: 1. There is a nonspecific abnormality in the mid right iliac wing, lateral to the mid aspect of the right sacroiliac joint. This is nonspecific and could be due to a healing fracture at this site, but a metastatic focus or other osseous lesion could be responsible for this finding. Mild abnormalities in the inferior aspects of the sacroiliac joints bilaterally are noted and these are probably degenerative in etiology. Further characterization of this right iliac abnormality with MRI, performed without and with intravenous contrast is recommended, if clinically indicated. 2. Minimal abnormality in the medial aspect of the left ankle is noted and is nonspecific but is likely traumatic in etiology and is compatible with the patient's history of a recent left ankle sprain. 3. A few additional minimal nonspecific abnormalities are noted as described above and these are all likely arthritic or traumatic in etiology. None of these abnormalities is strongly suspicious for metastatic disease.
== END ==
LOC: HO.NUCMED 09:59
PROVIDERS: PCP Internal Medicine; Visit Provider Internal Medicine Medical Oncology
DX: M25.552 Pain in left hip (principal)
CPT/HCPCS: 78306; A9503

== ENCOUNTER 2023-11-30 12:06 | Outpatient (AMB) | payer MEDICARE, MEDICAID, SELFPAY ==
[2023-11-30 12:32] VITALS: BP 132/78; PULSE 79; O2SAT 100; BMI 24.0
--- NOTE | 2023-11-30 12:32 | MHC.PC.OV ---
Vital Signs 11/30/23 12:32 Height 5 ft 1 in Weight 127 lb 0.8 oz BMI 24.0 BP 132/78 Blood Pressure Location Lt brachial Position Sitting Pulse 79 Pulse Source Pulse Oximeter Pulse Oximetry (%) 100 Oxygen Delivery Method Room Air Intake Visit Reasons: 3 Month F/U Allergies gabapentin Adverse Reaction (Unknown, Verified 03/05/24 11:11) dizziness, lightheadedness ibuprofen Adverse Reaction (Unknown, Verified 03/05/24 11:11) nausea and vomiting Medication List - Last Reconciled 11/30/23 by Ky Lin MD cholecalciferol (vitamin D3) 50 mcg PO FR cyanocobalamin (vitamin B-12) 1,000 mcg PO DAILY diphenoxylate-atropine 2.5-0.025 mg (Lomotil) 1 tab PO TID docusate sodium (Colace) 100 mg PO BID folic acid 1 mg PO DAILY 90 days ketorolac 10 mg PO TID PRN 5 days megestrol 800 mg (20 mL) PO DAILY menthol-zinc oxide 0.44-20.6 % (Calmoseptine) 1 appl topical QID PRN menthol-zinc oxide 0.44-20.6 % (Calmoseptine) 1 appl topical QID PRN omeprazole 20 mg PO DAILY@0630 ondansetron 8 mg PO Q8H oxycodone 10 mg PO Q4H PRN oxycodone 10 mg PO Q8H PRN 10 days potassium chloride ER (K-Tab) 20 mEq (2 x 10 mEq) PO DAILY Tobacco use date assessed: 11/30/23 Dental Screening Dental Screen Date: 08/26/23 HPI 3 Month F/U HPI Details Patient comes in today for her follow up visit States that she currently feels okay but continues to experience increased pain in her left hip as well as inside her pelvic area Also reports experiencing increasing low back pain recently and continues to require opioids to help manage her (chronic) pain Denies any recent injury or trauma to her lower back or hip She also continues to experience frequent numbness and tingling sensation in her extremities, which are likely neuropathy resulting from her chemotherapy She recently completed her chemotherapy for metastatic rectal cancer into her lungs in June 2023 - she received her last treatment (6th cycle) of FOLFIRI with bevacizumab on 07/05/2023 (started Tx on 02/09/2023) She subsequently reportedly did not wish to continue further chemotherapy and did not return to oncology for follow up until 10/31/[address] and bone scan have so far shown no evidence of recurrence of her cancer She reports that she still experiences fatigue often but denies any headaches or dizziness Denies any chest pains, no increased SOB No nausea/vomiting, no abdominal pain No change in bowel habits noted She has no recent follow up labs done other than a CBC last month [facility] Medical History Rectal pain History of rectal cancer ASCUS with positive high risk HPV cervical Rectal cancer metastasized to lung (~2020) Mass of left lung Intractable pain Personal history of nicotine dependence Perianal dermatitis Vitamin D deficiency Gastroesophageal reflux disease Tubular adenoma H. pylori infection Chronic pain syndrome Sacroiliitis Lumbar back pain with radiculopathy affecting left lower extremity Surgical History History of lung surgery (~2022) History of colonoscopy History of tubal ligation (~1999) History of hemorrhoidectomy (~2007) History of low anterior resection of rectum (~07/2021) History of reversal of ileostomy (~12/2021) S/P anal fissurectomy (~2008) History of bursectomy (~2013) History of nasal polypectomy History of esophagogastroduodenoscopy (EGD) Family History Mother Diabetes HTN (hypertension) Father Diabetes Heart attack Brother Diabetes Heart problem HTN (hypertension) Maternal Aunt Breast cancer Sister Uterus cancer Maternal Aunt Breast cancer Mother Lung cancer Social History Household Members: Significant Other Housing: House Are you a primary sub acute care nurse to a significant other at home: No Do you presently have visiting nurse or other home services: No Alcohol intake: never Patient Tobacco Use Status: Former Tobacco user e-Cigarette/Vaping Use: Never Used service: No Current occupational status: unemployed and disabled Cognitive needs: No Hearing needs: No Vision needs: No Questionnaire Thrive Questionnaire Date Thrive assessed: 08/26/23 AUDIT C Alcohol Use Questionnaire (AUDIT-C) 1. How often do you have a drink containing alcohol?: Never 3. How often do you have six or more drinks on one occasion?: Never Total Score: 0 Score Reviewed/Action Taken: Yes TACHO-7 AMB Questionnaire TACHO-7 Date TACHO - 7 assessed: 08/26/23 Source: Developed by Drs. Chilango Rios, Ana Cash, Ziggy Rios and colleagues, with an educational eleuterio from [employer]. Review of Systems Const Denies chills, Reports fatigue, Denies fever(s) and Denies headache(s) ENT Denies dysphagia, Denies dizziness, Denies otalgia, Denies headache(s), Denies neck pain, Denies odynophagia and Denies sore throat Card Denies chest pain, Denies palpitations and Denies dyspnea Resp Denies chest congestion, Denies cough and Denies dyspnea GI Details: (+) recurrent rectal burning sensation Denies abdominal pain, Denies constipation, Denies dysphagia, Denies heartburn, Denies diarrhea, Denies nausea, Denies odynophagia and Denies vomiting Details: c/o deep pelvic pain - S/P low anterior resection of rectum in 07/2021 Denies difficulty voiding, Denies nocturia, Denies dysuria and Denies urinary urgency Musc Reports back pain (over the lower back - increasing recently), Reports arthralgias (left hip - chronic), Denies neck pain, Reports numbness (in the extremities) and Reports tingling (in the extremities) Skin/Breast Denies rash Neuro Denies dizziness, Denies headache(s), Reports numbness (in the extremities) and Reports tingling (in the extremities) Endo Reports fatigue and Denies palpitations Physical exam (Primary Care) Vital Signs: Last Vital Signs Pulse 79 11/30/23 12:32 BP 132/78 11/30/23 12:32 Pulse Ox 100 11/30/23 12:32 Oxygen Delivery Method Room Air 11/30/23 12:32 BMI result Body Mass Index 24.0 Tobacco/Smoking Status: Tobacco use Status Tobacco use date assessed 11/30/23 11/30/23 12:37 Patient Tobacco Use Status Former Tobacco user 11/30/23 12:36 e-Cigarette/Vaping Use Never Used 11/30/23 12:36 Thrive Assessment: Date of Thrive Assessment Date Thrive assessed 08/26/23 11/30/23 12:36 Const General: no acute distress and alert HENMT Ears: TM's normal bilaterally and EAC's normal Throat: Yes posterior oropharynx normal and Yes tonsils normal (no TP congestion) Neck Neck: Yes no lymphadenopathy and Yes supple Thyroid: Thyroid normal Resp Auscultation: clear to auscultation bilaterally, no rales and no wheezes Cardio Rate: regular rate Rhythm: regular rhythm Heart sounds: no murmurs GI Palpation (GI): Soft to palpation and nontender Auscultation: normal bowel sounds General: Yes no CVA tenderness Back/Spine/Pelvis Back: no CVA tenderness Thoracic/Lumbar Spine: lumbar spinal tenderness Skin Rashes: no rashes Extrem General: Yes no clubbing, cyanosis or edema Results Reviewed Results Reviewed: Laboratory Tests 10/31/23 12:10 WBC 8.5 Hgb 12.8 Hct 38.0 Plt Count 251 Sodium 141 Potassium 3.6 Creatinine 1.00 Estimated GFR 58 Random Glucose 139 H AST 23 ALT 16 Assessment and Plan Assessment & Plan (1) Left hip pain: Code(s): M25.552 - Pain in left hip Plan: Will send patient for left hip and pelvic x-rays for further evaluation (2) Sacroiliitis: Code(s): M46.1 - Sacroiliitis, not elsewhere classified Plan: Will send patient for x-rays of the SI joints for further evaluation of her recently increasing low back pain (3) Rectal cancer metastasized to lung: Onset Date: ~2020 Comment: (Adenocarcinoma - s/p resection 07/31/21, radiation and Xeloda - met to lung s/p LLL wedge 10/2022) Code(s): C20 - Malignant neoplasm of rectum; C78.00 - Secondary malignant neoplasm of unspecified lung Plan: This was first noted incidentally on abdominal and pelvic CT done in July [address] done on 09/07/2022 confirmed the 1.5 cm left lower lobe lung mass with weak FDG activity, suspicious for malignancy S/P VATS and wedge resection by Dr Neil in October 2022 Started on FOLFIRI with Avastin on 02/09/2023 and completed adjuvant chemotherapy in late June [address] on 09/07/2023 and bone scan done a few weeks ago have so far shown no evidence of recurrence of her cancer Follow up with oncology as scheduled (4) Adenocarcinoma of rectum: Onset Date: ~2020 Comment: (Invasive Adenocarcinoma - s/p resection 07/31/21, radiation and Xeloda - mets to lung s/p LLL wedge 10/2022) Code(s): C20 - Malignant neoplasm of rectum Plan: S/P surgical (low anterior) resection and loop ileostomy by Dr. Hackett at [facility] in [place] on 07/31/2021; later underwent ileostomy reversal on 01/08/2022 also at [facility] She completed radiation therapy and Xeloda in 11/2021; was then treated with modified FOLFOX 6 but repeat imaging studies earlier this year showed (+) lung mets for which she underwent wedge resection and recently completed adjuvant chemotherapy Follow up with oncology (Dr. Macdonald) as scheduled (5) Lumbar back pain with radiculopathy affecting left lower extremity: Code(s): M54.16 - Radiculopathy, lumbar region Plan: Reinforced activity and weight-lifting restrictions She was seeing Pain Management for follow-up previously and was considering other treatment options, including intrathecal delivery system, but these were all put on hold when she was diagnosed with rectal cancer a couple of years ago She had an appointment with Dr. Aguilar on 06/29/22 but she reportedly overslept and missed her appt then and has not been back to see pain management since Continue Oxycodone 10 mg Q 8 hours PRN for now Have advised her of the option of referring her back to pain management once her cancer is completely cleared up and she is a little further out from her overall treatment (6) Gastroesophageal reflux disease: Code(s): K21.9 - Gastro-esophageal reflux disease without esophagitis Qualifiers: Esophagitis presence: esophagitis presence not specified Qualified Code(s): K21.9 - Gastro-esophageal reflux disease without esophagitis Plan: Dietary restrictions reinforced Continue Omeprazole 20 mg QD (7) Vitamin D deficiency: Code(s): E55.9 - Vitamin D deficiency, unspecified Plan: Continue Vitamin D3 2000 units QD (8) Anxiety: Code(s): F41.9 - Anxiety disorder, unspecified Plan: Continue Hydroxyzine 25 mg BID PRN Plan Follow up in 3 months Orders: Orders XR sacroiliac joint min 3V 12/01/23 R94.8 - Abnormal results of function studies of other organs and systems XR hip LT w PEL1V 12/01/23 M25.552 - Pain in left hip, R94.8 - Abnormal results of function studies of other organs and systems Coding Level of Care Code Est Pt Level 4 (95659) Diagnoses Left hip pain M25.552 Sacroiliitis M46.1 Rectal cancer metastasized to lung C20; C78.00 Adenocarcinoma of rectum C20 Lumbar back pain with radiculopathy affecting left lower extremity M54.16 Gastroesophageal reflux disease, unspecified whether esophagitis present K21.9 Esophagitis presence: esophagitis presence not specified Vitamin D deficiency E55.9 Anxiety F41.9
== END 2023-11-30 13:07 | disposition home or self-care (01) ==
PROVIDERS: PCP Internal Medicine; Visit Provider Internal Medicine
DX: M25.552 Pain in left hip (principal); M46.1 Sacroiliitis, not elsewhere classified; C20 Malignant neoplasm of rectum; C78.00 Secondary malignant neoplasm of unspecified lung; M54.16 Radiculopathy, lumbar region; K21.9 Gastro-esophageal reflux disease without esophagitis; E55.9 Vitamin D deficiency, unspecified; F41.9 Anxiety disorder, unspecified
CPT/HCPCS: 99214

== ENCOUNTER 2023-12-01 11:23 | Outpatient (REF) | payer MEDICARE, MEDICAID, SELFPAY ==
--- NOTE | ~2023-12-01 | XR_ITS ---
EXAMINATION: XR SACROILIAC JOINT XR HIP LEFT WITH AP PELVIS CLINICAL INDICATION: Abnormality in right iliac on bone scan as well as in the right SI joint area. Pain in left hip and lower back. TECHNIQUE: AP view of the pelvis and 2 views of the left hip. COMPARISON: Sacroiliac joint 12/08/2018, pelvis and left hip of 2012. FINDINGS: AP PELVIS AND LEFT HIP: Surgical sutures overlie the right pelvis. Small degenerative changes in the bilateral hips with joint space narrowing and hypertrophic change. Redemonstration of sclerotic focus overlying the left femoral neck possibly representing a bone lesion such as a bone island versus soft tissue calcification. BILATERAL SACROILIAC JOINTS: Degenerative changes in the imaged lower lumbar spine. Moderate degenerative changes with joint space narrowing and hypertrophic change in the bilateral sacroiliac joints. XR/XR hip LT w PEL1V IMPRESSION: 1. Moderate degenerative changes bilateral sacroiliac joints. 2. Redemonstration of sclerotic focus overlying the left femoral neck possibly representing a bone lesion such as a bone island versus soft tissue calcification.
--- NOTE | ~2023-12-01 | XR_ITS ---
EXAMINATION: XR SACROILIAC JOINT XR HIP LEFT WITH AP PELVIS CLINICAL INDICATION: Abnormality in right iliac on bone scan as well as in the right SI joint area. Pain in left hip and lower back. TECHNIQUE: AP view of the pelvis and 2 views of the left hip. COMPARISON: Sacroiliac joint 12/08/2018, pelvis and left hip of 2012. FINDINGS: AP PELVIS AND LEFT HIP: Surgical sutures overlie the right pelvis. Small degenerative changes in the bilateral hips with joint space narrowing and hypertrophic change. Redemonstration of sclerotic focus overlying the left femoral neck possibly representing a bone lesion such as a bone island versus soft tissue calcification. BILATERAL SACROILIAC JOINTS: Degenerative changes in the imaged lower lumbar spine. Moderate degenerative changes with joint space narrowing and hypertrophic change in the bilateral sacroiliac joints. XR/XR sacroiliac joint min 3V IMPRESSION: 1. Moderate degenerative changes bilateral sacroiliac joints. 2. Redemonstration of sclerotic focus overlying the left femoral neck possibly representing a bone lesion such as a bone island versus soft tissue calcification.
== END 2023-12-01 11:24 | disposition home or self-care (01) ==
LOC: HO.XRAY 11:23
PROVIDERS: PCP Internal Medicine; Visit Provider Internal Medicine
DX: M25.552 Pain in left hip (principal); R94.8 Abnormal results of function studies of other organs and systems
CPT/HCPCS: 72202; 73502

== ENCOUNTER → 2023-12-14 10:17 | Outpatient (BNVA) | payer MEDICARE, MEDICAID, SELFPAY | PROVIDERS: PCP Internal Medicine; Visit Provider Obstetrics & Gynecology ==

== ENCOUNTER 2024-01-23 09:22 | Outpatient (AMB) | payer MEDICARE, MEDICAID, SELFPAY ==
[2024-01-23 09:39] VITALS: BP 120/74; BMI 23.7
--- NOTE | 2024-01-23 09:39 | A.OFFVIS_ITS ---
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 Complaining of left breast pain over the last month with no associated nipple discharge or any other concerns. In addition the patient is complaining of pelvic pain with no associated GI or symptoms no vaginal discharge Last Pap/HPV was ascus/HPV positive in 12/16, colpo/biopsy/ECC was negative Last Mammogram was BI-RADS 1 in 06/18 Last colonoscopy was in 04/17, the recommendation was to repeat in 1 2 to use [facility] Medical History ASCUS with positive high risk HPV cervical Rectal cancer metastasized to lung (~2020) Mass of left lung Intractable pain Personal history of nicotine dependence Perianal dermatitis Vitamin D deficiency Gastroesophageal reflux disease Tubular adenoma H. pylori infection Chronic pain syndrome Sacroiliitis Lumbar back pain with radiculopathy affecting left lower extremity Surgical History History of lung surgery (~2022) History of colonoscopy History of tubal ligation (~1999) History of hemorrhoidectomy (~2007) History of low anterior resection of rectum (~07/2021) History of reversal of ileostomy (~12/2021) S/P anal fissurectomy (~2008) History of bursectomy (~2013) History of nasal polypectomy History of esophagogastroduodenoscopy (EGD) Family History Mother Diabetes HTN (hypertension) Father Diabetes Heart attack Brother Diabetes Heart problem HTN (hypertension) Maternal Aunt Breast cancer Sister Uterus cancer Maternal Aunt Breast cancer Mother Lung cancer Social History Household Members: Significant Other Housing: House Are you a primary respiratory care specialist to a significant other at home: No Do you presently have visiting nurse or other home services: No Alcohol intake: never Patient Tobacco Use Status: Former Tobacco user e-Cigarette/Vaping Use: Never Used service: No Current occupational status: unemployed and disabled Cognitive needs: No Hearing needs: No Vision needs: No Female Reproductive History Menstrual control method: permanent sterilization Total pregnancies: 5 Full term: 2 Number of Living Children: 2 Ab induced: 3 Date of last pap smear: 10/30/21 History of abnormal pap smear: Yes (HPV +) Date of Mammogram: 04/22/23 Review of Systems Const All systems reviewed & are unremarkable except as noted in HPI and below Card Reports as per HPI Resp Reports as per HPI GI Reports as per HPI and Reports no additional complaints Reports as per HPI Physical Exam Vital Signs: Last Vital Signs BP 120/74 01/23/24 09:39 BMI result Body Mass Index 23.7 Const General: cooperative, healthy appearing and comfortable Chest Chest palpation & inspection: normal inspection of the chest and normal palpation of entire chest wall Breast/axilla inspection: normal inspection of the breasts and normal inspection of the axillae Breast/axilla palpation: normal palpation of the breasts, normal palpation of the axillae and no axillary lymphadenopathy Resp Effort & Inspection: normal respiratory effort Auscultation: clear to auscultation bilaterally Percussion: percussion normal Cardio Palpation: normal PMI Rate: regular rate Rhythm: regular rhythm Heart sounds: no murmurs and no rubs Peripheral pulses: Peripheral pulses 2+ throughout GI Inspection: Yes normal to inspection Palpation (GI): Soft to palpation, nontender, no guarding, not rigid and No hepatosplenomegaly present Percussion: Yes normal to percussion Auscultation: normal bowel sounds Rectal Exam - Female: deferred General: Yes bladder normal to palpation External Female Exam: No lesion Speculum Exam - Vagina: normal appearance of the vagina, normal palpation, normal vaginal discharge and not erythematous Speculum Exam - Cervix: normal appearance of the cervix and normal palpation Bimanual exam- vagina & uterus: normal bimanual exam, normal palpation, uterine size normal, bladder normal to palpation, consistency normal and normal palpation Bimanual Exam- Adnexa, other: normal adnexae, no masses and no tenderness Assessment & Plan Assessment & Plan (1) Well woman exam: Comment: Ascus/HPV positive in 12/16 Code(s): Z01.419 - Encounter for gynecological examination (general) (routine) without abnormal findings Category: Medical Plan: Co testing done. Counseled the patient about the recommended dietary allowance of 1200 mg of Luis Carlos cium & 600 IU of vitamin D. Instructions given the patient to schedule next screening Mammogram in 06/19 The patient stated that she will call Dr. Frye to schedule her next screening colonoscopy . The patient was instructed to perform monthly self-breast exams and schedule annual exam in a year. All questions answered and the patient verbalized understanding. (2) Breast pain, left: Code(s): N64.4 - Mastodynia Category: Medical Plan: Discussed with the patient the differential diagnosis of her left breast pain includes but not limited to lump/cyst/pre cancer/cancer or other breast tissue disorders. The work up includes breast US and diagnostic mammogram and referred the patient for surgical breast consult. (3) Pelvic pain: Code(s): R10.2 - Pelvic and perineal pain Category: Medical Plan: Urine dip done in the office was negative. GC and chlamydia taken and pelvic ultrasound ordered. Discussed with the patient the differential diagnosis of pelvic pain including but not limited to adnexal, uterine masses, pelvic infections (PID), GI the (Irritable bowel syndrome, diverticulitis, others), musculoskeletal, myofascial pain abdominal wall , adhesions, endometriosis, psychological and others causes. Will check results and treat accordingly. All questions answered, the patient verbalized understanding. Instructed the patient to schedule follow-up appointment in 2 weeks (4) Microscopic hematuria: Code(s): R31.29 - Other microscopic hematuria Category: Medical Plan: Urine dip showed microscopic hematuria, urine culture sent. Will repeat urine dip in 2 weeks. Discussed with the patient the possible causes of microscopic hematuria including but not limited to: interstitial cystitis, polyps, stones, masses, urethral inflammatory processes and others. If Urine Culture is negative and repeat urine dip in 2 weeks shows persistent microscopic hematuria, will proceed with CT abdomen/pelvis and urology referral. Instructions given the patient to schedule a 2 week urine dip follow-up appointment. All questions answered and the patient verbalized understanding. Orders: Orders MM tomosynthesis diagnostic LT Today N64.4 - Mastodynia US breast LT complete Today N64.4 - Mastodynia US pelvic and transvaginal Today R10.2 - Pelvic and perineal pain Referrals General Surgery Referral N64.4 - Mastodynia Coding Level of Care Code Est Pt Prev Care 40-64y(13435) Diagnoses Well woman exam Z01.419 Breast pain, left N64.4 Pelvic pain R10.2 Microscopic hematuria R31.29
== END 2024-01-23 11:01 | disposition home or self-care (01) ==
PROVIDERS: PCP Internal Medicine; Visit Provider Obstetrics & Gynecology
DX: Z01.419 Encounter for gynecological examination (general) (routine) without abnormal findings (principal); N64.4 Mastodynia; R10.2 Pelvic and perineal pain; R31.29 Other microscopic hematuria
CPT/HCPCS: 99214; 99396

== ENCOUNTER 2024-01-23 09:22 | Outpatient (REF) | payer MEDICARE, MEDICAID, SELFPAY ==
[2024-01-23 17:59] LABS: CT PCR NOT DETECTED (Not Detect.); NG PCR NOT DETECTED (Not Detect.)
[2024-01-25 14:14] LABS: HPV mRNA E6/E7 Not Detected (Not Detected)
== END 2024-01-23 09:23 | disposition home or self-care (01) ==
LOC: HO.LNP 09:22
PROVIDERS: PCP Internal Medicine; Visit Provider Obstetrics & Gynecology
DX: Z01.419 Encounter for gynecological examination (general) (routine) without abnormal findings (principal); Z11.51 Encounter for screening for human papillomavirus (HPV); R31.29 Other microscopic hematuria
CPT/HCPCS: 81002; 87086; 87491; 87591; 87624; 88175; 99212; 99396

== ENCOUNTER 2024-01-24 23:24 | Emergency (ER) | payer MEDICARE, MEDICAID, SELFPAY ==
--- NOTE | ~2024-01-24 | CT_ITS ---
EXAMINATION: CTA NECK WITH CONTRAST (STROKE) CTA BRAIN WITH CONTRAST (STROKE) CLINICAL INFORMATION: Left-sided weakness COMPARISON: Noncontrast head CT from just prior TECHNIQUE: Initial noncontrast head CT was performed. Test bolus sequences followed by intravenous administration 70 mL of Ultravist-370. Helical imaging was performed in the axial plane from the thoracic inlet to the skull vertex. Delayed postcontrast imaging of the head was also performed. The data was processed at the electroencephalogram technologist's workstation for generation of MIP sequences. Angled MIPs and volume rendered reformatted images were also generated at an offline 3D workstation. Stenoses are assessed in accordance with NASCET criteria unless otherwise indicated. DOSE LOWERING TECHNIQUES: This CT examination was performed using dose optimization techniques as appropriate, variously including the following: - Automated exposure control - Adjustment of mA and/or kV according to patient size (this includes techniques or standardized protocols for targeted exams were dose is matched to indication/reason for exam; i.e. extremities or head) - Use of iterative reconstruction technique DLP: 1326 mGy-cm FINDINGS: Neck CTA: There is common origin of the brachiocephalic and left common carotid arteries off the aortic arch. Normal appearance of the visualized aortic arch and proximal branches. No evidence of stenosis at the branch origins. Both vertebral arteries are widely patent throughout their extracranial cervical course. Normal appearance of the common and internal carotid arteries without focal stenosis. Brain CTA: Normal appearance of the intradural vertebral arteries. Normal appearance of the basilar and superior cerebellar arteries. Normally opacified posterior cerebral arteries bilaterally. Normal appearance of the intradural internal carotid arteries without focal stenosis. Normal appearance of the anterior cerebral and middle cerebral arteries without focal occlusion or stenosis. Normal anterior communicating artery. Normal arborization of the middle cerebral arteries. CT Head: No intracranial mass, hemorrhage, extra-axial collection, or midline shift. The lawton-white matter differentiation is preserved. No pathologic intra-axial enhancement or regional oligemia. No hydrocephalus. The mastoid air cells and paranasal sinuses remain well aerated. CT Neck: The thyroid gland and remaining cervical soft tissues are normal in appearance. No cervical spine abnormalities demonstrated. Upper Chest: Right IJ port catheter noted. No acute abnormalities in the visualized lung apices or upper mediastinum. CT/CT angio head neck stroke IMPRESSION: No hemodynamically significant stenosis in the major arteries of the neck. No large vessel occlusion or significant stenosis in the intracranial circulation. This stroke protocol result was discussed with Dr. Ramsey on 01/25/2024 3:30 AM.
--- NOTE | ~2024-01-24 | CT_ITS ---
EXAMINATION: CT HEAD WITHOUT CONTRAST (STROKE PROTOCOL) CLINICAL INFORMATION: Stroke protocol. Left-sided weakness COMPARISON: 10/06/2008 report only TECHNIQUE: Contiguous axial imaging was performed from the skull base to vertex without intravenous administration of contrast. This CT examination was performed using dose optimization techniques as appropriate, variously including the following: *Automated exposure control *Adjustment of mA and/or kV according to patient size (this includes techniques or standardized protocols for targeted exams where dose is matched to indication/reason for exam; i.e. extremities or head) *Use of iterative reconstruction technique DLP: 539 mGy-cm FINDINGS: There is no evidence of acute intracranial hemorrhage or territorial infarction. No abnormal mass-effect or midline shift is seen. Castro to white matter differentiation is well preserved. No extra-axial fluid collections are identified. The ventricles are normal in size. There is no abnormal attenuation within the brain parenchyma. Mild volume loss is noted. The osseous structures and soft tissues are normal. The mastoid air cells and visualized portions of the paranasal sinuses are well-aerated. CT/CT head for stroke IMPRESSION: No acute intracranial pathology. This stroke protocol result was discussed with Dr. Ramsey on 01/25/2024 2:52 AM.
[2024-01-24 23:25] VITALS: BP 171/99; PULSE 115; RESP 20; TEMP 36.5; O2SAT 96; BMI 24.9
[2024-01-24 23:50] LABS: Basophils Percent Auto 0.6 % (0-2); Eosinophils Absolute Auto 0.1 X10*3/uL (0.0-0.4); Eosinophils Percent Auto 1.4 % (0-4); Hematocrit 37.9 % (37.0-47.0); Hemoglobin 13.1 g/dl (12.0-16.0); Imm Gran Abs Auto 0.01 X10*3/uL (0.00-0.03); Imm Gran Pct Auto 0.2 % (0.0-0.4); Lymphocytes Absolute Auto 3.6 X10*3/uL (1.2-4.9); Lymphocytes Percent Auto 54.6 % (20-40); MANUAL DIFF FLAG NO; Mean Corpuscular HGB Conc 34.6 g/dl (31.0-35.0); Mean Corpuscular Hemoglobin 34.9 pg (27.0-33.0); Mean Corpuscular Volume 101.1 fL (80.0-98.0); Monocytes Absolute Auto 0.7 X10*3/uL (0.1-1.2); Monocytes Percent Auto 10.2 % (2-11); Neutrophils Absolute Auto 2.2 x10*3/uL (2.0-8.3); Platelet Count 218 X10*3/uL (160-400); Red Blood Count 3.75 X10*6/uL (4.20-5.50); Red Cell Distribution Width 13.1 % (11.0-16.0); White Blood Count 6.6 X10*3/uL (4.8-10.8)
[2024-01-25 00:13] LABS: Anion Gap 22 (12-20); Blood Urea Nitrogen < 3 mg/dL (9-16); Calcium 9.9 mg/dL (8.4-10.2); Carbon Dioxide 19 mmol/L (22-29); Chloride 100 mmol/L (96-108); Creatinine Clr Calc Pharmacy 63.5; Estimated Glomerular Filt Rate > 60; Glucose Random 113 mg/dL (60-115); HCG Quantitative < 2 mIU/mL; Potassium 3.2 mmol/L (3.3-5.1); Sodium 138 mmol/L (135-145)
[2024-01-25 02:00] VITALS: BP 140/75; PULSE 72; RESP 16; TEMP 36.5; O2SAT 92
--- NOTE | 2024-01-25 02:27 | ECG_ITS ---
Test Reason : CHEST PAIN Blood Pressure : / mmHG Vent. Rate : 065 BPM Atrial Rate : 065 BPM P-R Int : 098 ms QRS Dur : 084 ms QT Int : 446 ms P-R-T Axes : -10 062 023 degrees QTc Int : 463 ms Sinus rhythm with short NH Otherwise normal ECG When compared with ECG of 08-APR-2021 06:42, Vent. rate has decreased BY 34 BPM Referred By: Karishma Ramsey Electronically Signed By:Pasha Viramontes
--- NOTE | 2024-01-25 02:29 | ED.WEAKNESS ---
HPI - Weakness General Chief complaint: Weakness Stated complaint: left side pain, no movement Time Seen by Provider: 01/25/24 00:08 Related Data Home Medications ?Medication ?Instructions ?Recorded ?Confirmed cyanocobalamin (vitamin B-12) 1,000 mcg PO DAILY 01/10/22 11/30/23 1,000 mcg tablet cholecalciferol (vitamin D3) 50 50 mcg PO FR 10/29/22 11/30/23 mcg (2,000 unit) capsule Previous Rx's ?Medication ?Instructions ?Recorded ondansetron 8 mg disintegrating 8 mg PO Q8H #60 tabs 01/28/23 tablet docusate sodium 100 mg capsule 100 mg PO BID #60 caps 03/17/23 (Colace) menthol 0.44 %-zinc oxide 20.6 % 1 appl topical QID PRN perianal 03/17/23 topical ointment (Calmoseptine) skin irritation #113 grams diphenoxylate-atropine 2.5 1 tab PO TID #60 tabs 04/25/23 mg-0.025 mg tablet (Lomotil) menthol 0.44 %-zinc oxide 20.6 % 1 appl topical QID PRN perianal 06/16/23 topical ointment (Calmoseptine) irritation #113 grams megestrol 400 mg/10 mL (40 mg/mL) 800 mg (20 mL) PO DAILY #600 mL 07/14/23 oral suspension ketorolac 10 mg tablet 10 mg PO TID PRN pain 5 days #15 07/22/23 tabs omeprazole 20 mg capsule,delayed 20 mg PO DAILY@0630 #30 caps 09/20/23 release potassium chloride 10 mEq 20 meq (2 x 10 mEq) PO DAILY #30 12/22/23 tablet,extended release tabs folic acid 1 mg tablet 1 mg PO DAILY 90 days #90 tabs 12/30/23 oxycodone 10 mg tablet 10 mg PO Q8H PRN Breakthrough 01/23/24 Pain, Severe 10 days #30 tabs Allergies Allergy/AdvReac Type Severity Reaction Status Date / Time gabapentin AdvReac Unknown dizziness, Verified 01/24/24 23:28 lightheadedness ibuprofen AdvReac Unknown nausea and Verified 01/24/24 23:28 vomiting PMFSH Past Medical History Medical History ASCUS with positive high risk HPV cervical Rectal cancer metastasized to lung (~2020) Mass of left lung Intractable pain Personal history of nicotine dependence Perianal dermatitis Vitamin D deficiency Gastroesophageal reflux disease Tubular adenoma H. pylori infection Chronic pain syndrome Sacroiliitis Lumbar back pain with radiculopathy affecting left lower extremity Surgical History History of lung surgery (~2022) History of colonoscopy History of tubal ligation (~1999) History of hemorrhoidectomy (~2007) History of low anterior resection of rectum (~07/2021) History of reversal of ileostomy (~12/2021) S/P anal fissurectomy (~2008) History of bursectomy (~2013) History of nasal polypectomy History of esophagogastroduodenoscopy (EGD) Family History Family History Mother Diabetes HTN (hypertension) Father Diabetes Heart attack Brother Diabetes Heart problem HTN (hypertension) Maternal Aunt Breast cancer Sister Uterus cancer Maternal Aunt Breast cancer Mother Lung cancer Social History Social History Household Members: Significant Other Housing: House Are you a primary child care director to a significant other at home: No Do you presently have visiting nurse or other home services: No Alcohol intake: never Patient Tobacco Use Status: Former Tobacco user Smoked in Last 30 Days: No e-Cigarette/Vaping Use: Never Used Use of substances other than those prescribed or required for medical reasons: No Advance Directives: No Advance Directives Information Provided: Yes service: No Current occupational status: unemployed and disabled Cognitive needs: No Hearing needs: No Vision needs: No Physical Exam Vital Signs: Vital Signs: Last Vital Signs Temp 97.7 F 01/25/24 02:00 Pulse 72 01/25/24 02:00 Resp 16 01/25/24 02:00 BP 140/75 H 01/25/24 02:00 Pulse Ox 92 01/25/24 02:00 O2 Del Method Room Air 01/25/24 02:00 BMI result Body Mass Index 24.9 NIH Stroke Scale Internal: Initial- Upon Arrival Level of Consciousness: Alert Level of Consciousness Questions: Answers both questions correctly Level of Consciousness Commands: Performs both tasks correctly Best Gaze: Normal Visual: No visual loss Facial Palsy: Normal Motor Arm (Right): No drift Motor Arm (Left): No drift Motor Leg (Right): No drift Motor Leg (Left): No drift Limb Ataxia: Absent Sensory: Normal Best Language: No aphasia Dysarthia: Normal Extinction and Inattention: No abnormality Score: 0 Medications Administered Discontinued Medications Generic Name Dose Route Start Last Admin Trade Name Tomásq PRN Reason Stop Dose Admin Sodium Chloride 1,000 mls @ 999 mls/hr 01/25/24 02:45 01/25/24 03:15 Ns IV 01/25/24 03:45 999 mls/hr .Q1H1M AURY Administration Medical Decision Making Medical Decision Making [facility] Narrative: Patient's CT scan of the head was grossly negative for any acute evidence of bleeding. CTA showed no large vessel occlusion. Has slight subjective weakness on the left side. However is able to lift up arm against gravity. Fine motor movement grossly intact. Rapid alternating movement intact. NIH stroke scale is 0. The patient also has pain to the left upper extremity. Patient was seen by the hospitalist team for possible admission versus discharge. [place] patient is safe to be discharged home for possible neuropathy. Currently in stable condition. Will ask patient to continue aspirin. Also to follow-up with neurology on an outpatient basis. Patient states understanding. Differential Diagnosis Differential Diagnoses: The differential diagnosis associated with the presentation includes TIA, CVA, neuropathy, shoulder pain Admission/Observation Consideration of admission/observation: Escalation of care including admission/observation considered Consult Healthcare Provider Management of the patient was discussed with: Hospitalist Lab Data [facility] Lab Attestation statement: I reviewed the patient's lab results. 01/24/24 23:45 01/24/24 23:45 Labs: Lab Results 01/24/24 Range/Units 23:45 WBC 6.6 (4.8-10.8) X10*3/uL RBC 3.75 L (4.20-5.50) X10*6/uL Hgb 13.1 (12.0-16.0) g/dl Hct 37.9 (37.0-47.0) % MCV 101.1 H (80.0-98.0) fL MCH 34.9 H (27.0-33.0) pg MCHC 34.6 (31.0-35.0) g/dl RDW 13.1 (11.0-16.0) % Plt Count 218 (160-400) X10*3/uL MPV 10.0 (9.4-12.3) fL Immature Gran % (Auto) 0.2 (0.0-0.4) % Neut % (Auto) 33.0 L (45-73) % Lymph % (Auto) 54.6 H (20-40) % [place] % (Auto) 10.2 (2-11) % Eos % (Auto) 1.4 (0-4) % Baso % (Auto) 0.6 (0-2) % Lymph # (Auto) 3.6 (1.2-4.9) X10*3/uL [place] # (Auto) 0.7 (0.1-1.2) X10*3/uL Eos # (Auto) 0.1 (0.0-0.4) X10*3/uL Baso # (Auto) 0.0 (0.0-0.2) X10*3/uL Abs Immat Gran (auto) 0.01 (0.00-0.03) X10*3/uL Absolute Neuts (auto) 2.2 (2.0-8.3) x10*3/uL Absolute Nucleated RBC 0.000 (0.0-0.012) X10*3/uL Nucleated RBC % (auto) 0.0 (0.0-0.2) /100WBC Sodium 138 (135-145) mmol/L Potassium 3.2 L (3.3-5.1) mmol/L Chloride 100 (96-108) mmol/L Carbon Dioxide 19 L (22-29) mmol/L Anion Gap 22 H (12-20) BUN < 3 L (9-16) mg/dL Creatinine 0.84 (0.5-1.4) mg/dL Estim Creat Clear Calc 63.5 Estimated GFR > 60 Random Glucose 113 (60-115) mg/dL Calcium 9.9 D (8.4-10.2) mg/dL Beta HCG, Quant < 2 mIU/mL Independent Interpretation I performed an independent interpretation of an: EKG (My interpretation patient's EKG showed a sinus rhythm heart rate is 60 MS QRS QTC normal no acute ST segment elevation noted.) and CT Scan (CT scan head was grossly negative for any acute evidence of bleeding) Radiology Impression Discussion of test interpretation with radiology: I have reviewed the radiologist's reading. External Record Review External record reviewed: Inpatient record Chronic Conditions History of colon cancer currently on chemotherapy Discharge Plan Discharge Clinical Impression: Neuropathy Patient Disposition: Home, Self-Care Instructions: Peripheral Neuropathy (ED) Prescriptions: No Action menthol-zinc oxide [Calmoseptine] 0.44-20.6 % ointment 1 appl topical QID PRN (Reason: perianal irritation) Qty: 113 2RF omeprazole 20 mg capsule,delayed release(DR/EC) 20 mg PO DAILY@0630 Qty: 30 3RF potassium chloride 10 mEq tablet extended release 20 meq PO DAILY Qty: 30 5RF folic acid 1 mg tablet 1 mg PO DAILY 90 Days Qty: 90 3RF oxycodone 10 mg tablet 10 mg PO Q8H PRN (Reason: Breakthrough Pain, Severe) 10 Days Qty: 30 0RF Rx Instructions: Partial Fill upon patient request; refill Rx only when due ondansetron 8 mg Tablet,Disintegrating 8 mg PO Q8H Qty: 60 3RF diphenoxylate-atropine [Lomotil] 2.5-0.025 mg Tablet 1 tab PO TID Qty: 60 3RF megestrol 400 mg/10 mL (40 mg/mL) Suspension 800 mg PO DAILY Qty: 600 3RF cyanocobalamin (vitamin B-12) 1,000 mcg Tablet 1,000 mcg PO DAILY cholecalciferol (vitamin D3) 50 mcg (2,000 unit) capsule 50 mcg PO FR ketorolac 10 mg tablet 10 mg PO TID PRN (Reason: pain) 5 Days Qty: 15 0RF menthol-zinc oxide [Calmoseptine] 0.44-20.6 % ointment 1 appl topical QID PRN (Reason: perianal skin irritation) Qty: 113 0RF docusate sodium [Colace] 100 mg capsule 100 mg PO BID Qty: 60 2RF Referrals: Angela Oh MD [Physician] - 01/27/24 Ky Lin MD [Primary Care Provider] - 01/27/24 Print Language: Malagasy
[2024-01-25] MEDS: 0.9 % Sodium Chloride 1,000 ML 999 ML IV (03:15)
[2024-01-25 04:00] VITALS: BP 127/64; PULSE 70; RESP 18; TEMP 36.9; O2SAT 98
--- NOTE | 2024-01-25 04:08 | PM.EVENT ---
Event Note Date of Service: 01/25/24 Event Note: Was asked to evaluate the patient for possible admission. This is a 53 F with pertinent history of liver cancer on chemotherapy who presents for evaluation of left hand weakness and pain. Patient states she has had peripheral neuropathy of bilateral legs for many years due to chemotherapy. She also has been having left upper extremity weakness on and off for the last 2 months. She developed left hand numbness 2 days ago and on the day of presentation she developed left arm pain with left hand weakness. No speech abnormality. No pronator drift. No vision abnormality. No facial droop. CT head and CTA head/neck without any acute abnormality. Low concern for acute CVA (as patient has had left hand weakness on and off for [address] head). Discussed with ER provider. Recommend obtaining B12, magnesium, TSH and repleting potassium. May need Neurology referral for likely peripheral etiology of patient's symptoms. Time Spent With Patient Time: Total time managing care of this patient today ____ minutes.
[2024-01-25 04:30] VITALS: BP 127/64; PULSE 70; RESP 18; TEMP 36.9; O2SAT 98
== END 2024-01-25 04:32 | disposition home or self-care (01) ==
PROVIDERS: Emergency Provider Emergency Medicine Emergency Medical Services; PCP Internal Medicine
DX: G62.9 Polyneuropathy, unspecified (principal); R53.1 Weakness; R10.2 Pelvic and perineal pain; R07.89 Other chest pain; Z79.899 Other long term (current) drug therapy
CPT/HCPCS: 36415; 70450; 70496; 70498; 80048; 84702; 85025; 92950; 93005; 99284; 99285

== ENCOUNTER → 2024-01-25 02:27 | Outpatient (BNV) | payer MEDICARE, MEDICAID, SELFPAY | PROVIDERS: Emergency Provider Emergency Medicine Emergency Medical Services; PCP Internal Medicine; Visit Provider Internal Medicine Cardiovascular Disease | DX: R07.9 Chest pain, unspecified (principal) | CPT/HCPCS: 93010 ==

== ENCOUNTER 2024-01-30 10:31 | Outpatient (REF) | payer MEDICARE, MEDICAID, SELFPAY ==
--- NOTE | ~2024-01-30 | US_ITS ---
EXAMINATION: US PELVIS CLINICAL INFORMATION: Pelvic pain, postmenopausal. COMPARISON: CT abdomen and pelvis of 04/16/2023, pelvic ultrasound of 11/26/2020. TECHNIQUE: Ultrasound of the pelvis is performed using both transabdominal and transvaginal transducers along with Doppler. Transvaginal imaging is performed due to inadequate visualization transabdominally. FINDINGS: The uterus is anteverted and measures 6.9 x 3.5 x 3.9 cm. Endometrial thickness is 3 mm. Trace amount of free fluid within the endometrial cavity. No significant free fluid. Nabothian cysts. Right ovary measures 2.9 x 2.0 x 1.9 cm, volume 5.8 mL. Left ovary measures 2.7 x 2.2 x 1.1 cm, volume of 3.4 mL. Bilateral ovaries are unremarkable. US/US pelvic and transvaginal IMPRESSION: Endometrial thickness is 3 mm. Trace amount of free fluid within the endometrial cavity. Grossly unremarkable bilateral ovaries, although visualization is limited due to bowel gas.
== END 2024-01-30 10:32 | disposition home or self-care (01) ==
LOC: HO.US 10:31
PROVIDERS: PCP Internal Medicine; Visit Provider Obstetrics & Gynecology
DX: R10.2 Pelvic and perineal pain (principal)
CPT/HCPCS: 76830; 76856

== ENCOUNTER 2024-02-08 11:29 | Outpatient (AMB) | payer MEDICARE, MEDICAID, SELFPAY ==
[2024-02-08 11:30] VITALS: BMI 23.6
--- NOTE | 2024-02-08 11:30 | MHC.OFFVIS ---
Vital Signs 02/08/24 11:30 Height 5 ft 1 in Weight 125 lb BMI 23.6 Intake Visit Reasons: malignant neoplasm of rectum Intake Note: This patient presents for malignant neoplasm of rectum follow-up. Pt c/o; reports rectal pain; throbbing sensation, reports occasional straining with bowel movements, reports no rectal bleeding, reports was advised by her sports management professor doctor she should get a colonoscopy. Retirement [employer] Manager Required: No Accompanied by: Self / Same As Patient Allergies gabapentin Adverse Reaction (Unknown, Verified 02/08/24 11:38) dizziness, lightheadedness ibuprofen Adverse Reaction (Unknown, Verified 02/08/24 11:38) nausea and vomiting Medication List - Last Reconciled 02/08/24 by Max Frye MD cholecalciferol (vitamin D3) 50 mcg PO FR cyanocobalamin (vitamin B-12) 1,000 mcg PO DAILY diphenoxylate-atropine 2.5-0.025 mg (Lomotil) 1 tab PO TID docusate sodium (Colace) 100 mg PO BID folic acid 1 mg PO DAILY 90 days ketorolac 10 mg PO TID PRN 5 days megestrol 800 mg (20 mL) PO DAILY menthol-zinc oxide 0.44-20.6 % (Calmoseptine) 1 appl topical QID PRN menthol-zinc oxide 0.44-20.6 % (Calmoseptine) 1 appl topical QID PRN omeprazole 20 mg PO DAILY@0630 ondansetron 8 mg PO Q8H oxycodone 10 mg PO Q8H PRN 10 days potassium chloride ER 20 mEq (2 x 10 mEq) PO DAILY HPI HPI malignant neoplasm of rectum: Details: She has history of ultra-low anterior resection for a low-lying rectal cancer done in [place]. She had undergone neoadjuvant chemotherapy and radiation. She had metastatic lesions to the lungs and had undergone wedge resection last year. She had called the office to be checked again as she had some throbbing pain for a few minutes in her rectum yesterday She denies any bleeding. She says she denies any further changes in her bowel habits. She says that the throbbing pain lasts for a couple of minutes yesterday. [facility] Medical History (Updated 02/08/24 @ 14:29 by Max Frye MD) Rectal pain History of rectal cancer ASCUS with positive high risk HPV cervical Rectal cancer metastasized to lung (~2020) Mass of left lung Intractable pain Personal history of nicotine dependence Perianal dermatitis Vitamin D deficiency Gastroesophageal reflux disease Tubular adenoma H. pylori infection Chronic pain syndrome Sacroiliitis Lumbar back pain with radiculopathy affecting left lower extremity Surgical History History of lung surgery (~2022) History of colonoscopy History of tubal ligation (~1999) History of hemorrhoidectomy (~2007) History of low anterior resection of rectum (~07/2021) History of reversal of ileostomy (~12/2021) S/P anal fissurectomy (~2008) History of bursectomy (~2013) History of nasal polypectomy History of esophagogastroduodenoscopy (EGD) Family History Mother Diabetes HTN (hypertension) Father Diabetes Heart attack Brother Diabetes Heart problem HTN (hypertension) Maternal Aunt Breast cancer Sister Uterus cancer Maternal Aunt Breast cancer Mother Lung cancer Social History Household Members: Significant Other Housing: House Are you a primary senior care specialist to a significant other at home: No Do you presently have visiting nurse or other home services: No Alcohol intake: never Patient Tobacco Use Status: Former Tobacco user e-Cigarette/Vaping Use: Never Used service: No Current occupational status: unemployed and disabled Cognitive needs: No Hearing needs: No Vision needs: No Review of Systems Const Denies chills and Denies fever(s) Card Denies chest pain, Denies dyspnea and Denies dyspnea on exertion Resp Denies cough, Denies dyspnea and Denies dyspnea on exertion GI Denies hematochezia and Denies change in bowel habits Denies hematuria Musc Denies back pain and Denies limited range of motion Neuro Denies focal weakness and Denies convulsions Psych Denies depression and Denies mood swings Physical Exam Vital Signs: BMI result Body Mass Index 23.6 Const General: comfortable and no acute distress Orientation/consciousness: patient oriented x3 Neck Neck: Yes no lymphadenopathy Resp Auscultation: clear to auscultation bilaterally Cardio Rhythm: regular rhythm GI Other: Perianal area with some mild skin excoriation consistent with radiation changes, no obvious lesions, unable to tolerate digital exam and anoscopy because of pain but this is baseline for her Palpation (GI): Soft to palpation, nontender and no guarding Neuro General: patient oriented x3 Assessment & Plan Assessment & Plan (1) History of rectal cancer: Code(s): Z85.048 - Personal history of other malignant neoplasm of rectum, rectosigmoid junction, and anus Category: Medical Plan: She had an episode of rectal pain yesterday. I attempted an anoscopic exam but she was not able to tolerate this She is scheduled to undergo a surveillance colonoscopy this year. I told her that we will arrange for this with her endoscopist Dr. Cunha. She has had no recurrence of her rectal pain from yesterday (2) Rectal pain: Code(s): K62.89 - Other specified diseases of anus and rectum Category: Medical Plan: She was not able to tolerate anoscopic exam. She does understand that with her previous ultra-low anterior resection along with radiation, she may have some she says of pain in her rectum We will see what her repeat colonoscopy shows. Coding Level of Care Code Est Pt Level 3 (99154) Diagnoses History of rectal cancer Z85.048 Rectal pain K62.89
== END 2024-02-08 11:53 | disposition home or self-care (01) ==
PROVIDERS: PCP Internal Medicine; Visit Provider Surgery
DX: Z85.048 Personal history of other malignant neoplasm of rectum, rectosigmoid junction, and anus (principal); K62.89 Other specified diseases of anus and rectum
CPT/HCPCS: 99213

== ENCOUNTER → 2024-02-08 11:29 | Outpatient (BNVA) | payer MEDICARE, MEDICAID, SELFPAY | PROVIDERS: PCP Internal Medicine; Visit Provider Surgery | DX: K62.89 Other specified diseases of anus and rectum (principal); Z85.048 Personal history of other malignant neoplasm of rectum, rectosigmoid junction, and anus | CPT/HCPCS: 99212 ==

== ENCOUNTER 2024-02-23 13:35 | Outpatient (REF) | payer MEDICARE, MEDICAID, SELFPAY ==
--- NOTE | ~2024-02-23 | MM_ITS ---
EXAMINATION: MM DIAGNOSTIC DIGITAL BREAST TOMOSYNTHESIS, BILATERAL US BREAST LIMITED, LEFT MAMMOGRAPHY: CLINICAL INFORMATION: Left breast pain upper outer quadrant 2 months. Left lung CA 2022 and colon CA in 2020. Right-sided port in place. COMPARISON: Mammography: 05/31/2023, 04/22/2023 10/30/2021, 05/03/2014. TECHNIQUE: Digital breast tomosynthesis is performed in both the craniocaudal and mediolateral oblique views along with computer-aided detection (CAD). Synthesized 2D images are generated from the tomosynthesis. In addition, full field 3-D left ML view was also obtained. Per technologist note, right chest port mildly limited the right MLO view. FINDINGS: There are scattered areas of fibroglandular density (ACR BI-RADS breast composition Category b). There are no suspicious masses, suspicious grouped calcifications, or areas of architectural distortion in either breast. The parenchymal pattern is stable from prior exams. There is no skin or axillary abnormality. There is no mammographic abnormality in the area marked left breast upper outer quadrant in region of pain. We will evaluate this with ultrasound. ULTRASOUND: CLINICAL INFORMATION: Upper-outer left breast pain. COMPARISON: No prior. TECHNIQUE: Targeted sonographic evaluation was performed using a high frequency linear transducer. Attention was given to the upper outer quadrant left breast to cover the region of breast pain. Selected archived documentation. FINDINGS: LEFT BREAST: There is a mixture of fatty and fibroglandular tissue. No suspicious mass is seen. There is no pathologic acoustic shadowing. No cystic abnormality. There is no sonographic correlate to the region of breast pain upper outer left breast. MM/MM tomosynthesis diagnostic BI IMPRESSION: 1. There are no findings suspicious for malignancy in either breast. 2. Area of breast pain upper outer left breast shows no mammographic or sonographic correlate. Recommend clinical management. 3. Otherwise, recommend the patient resume routine annual screening mammography. OVERALL ASSESSMENT: Mammography: BI-RADS 1 - Negative Ultrasound: BI-RADS 1 - Negative RECOMMENDATION: 1. Patient should be managed based on the clinical impression. 2. Otherwise, routine annual screening mammography. This patient's information was entered into a reminder system with a target due date for their next mammogram. Electronically signed by: Reyes Lam MD 02/23/2024 02:40 PM EDT RP
== END 2024-02-23 13:36 | disposition home or self-care (01) ==
LOC: HO.MAMMO 13:35
PROVIDERS: PCP Internal Medicine; Visit Provider Obstetrics & Gynecology
DX: N64.4 Mastodynia (principal)
CPT/HCPCS: 76642; 77062; 77066

== ENCOUNTER → 2024-02-23 14:30 | Outpatient (BNV) | payer MEDICARE, MEDICAID, SELFPAY | PROVIDERS: PCP Internal Medicine; Visit Provider Radiology Diagnostic Radiology | DX: N64.4 Mastodynia (principal) | CPT/HCPCS: 76642; 77066; G0279 ==

== ENCOUNTER 2024-03-02 11:04 | Outpatient (REF) | payer MEDICARE, MEDICAID, SELFPAY ==
[2024-03-02 11:22] LABS: MANUAL DIFF FLAG NO
[2024-03-02 11:23] LABS: Basophils Percent Auto 0.4 % (0-2); Eosinophils Absolute Auto 0.1 X10*3/uL (0.0-0.4); Eosinophils Percent Auto 2.1 % (0-4); Hematocrit 43.4 % (37.0-47.0); Hemoglobin 14.4 g/dl (12.0-16.0); Imm Gran Abs Auto 0.01 X10*3/uL (0.00-0.03); Imm Gran Pct Auto 0.2 % (0.0-0.4); Lymphocytes Absolute Auto 1.6 X10*3/uL (1.2-4.9); Mean Corpuscular HGB Conc 33.2 g/dl (31.0-35.0); Mean Corpuscular Hemoglobin 34.2 pg (27.0-33.0); Mean Corpuscular Volume 103.1 fL (80.0-98.0); Monocytes Absolute Auto 0.5 X10*3/uL (0.1-1.2); Monocytes Percent Auto 10.3 % (2-11); Neutrophils Absolute Auto 2.7 x10*3/uL (2.0-8.3); Platelet Count 225 X10*3/uL (160-400); Red Blood Count 4.21 X10*6/uL (4.20-5.50); Red Cell Distribution Width 11.9 % (11.0-16.0); White Blood Count 4.9 X10*3/uL (4.8-10.8)
[2024-03-02 11:53] LABS: Alanine Aminotransferase 74 U/L (0-31); Albumin Level 4.2 g/dL (3.5-5.0); Alkaline Phosphatase 110 U/L (39-117); Anion Gap 17 (12-20); Aspartate Amino Transferase 125 U/L (5-31); Bilirubin Total 0.6 mg/dL (0.0-1.0); Blood Urea Nitrogen 3 mg/dL (9-16); Calcium 9.8 mg/dL (8.4-10.2); Carbon Dioxide 26 mmol/L (22-29); Chloride 107 mmol/L (96-108); Estimated Glomerular Filt Rate > 60; Glucose Random 103 mg/dL (60-115); Potassium 4.4 mmol/L (3.3-5.1); Sodium 146 mmol/L (135-145); Total Protein 7.9 g/dL (6.5-8.0)
== END 2024-03-02 11:05 | disposition home or self-care (01) ==
LOC: HO.LAB 11:04
PROVIDERS: PCP Internal Medicine; Visit Provider Internal Medicine Medical Oncology
DX: K62.89 Other specified diseases of anus and rectum (principal); R91.8 Other nonspecific abnormal finding of lung field
CPT/HCPCS: 36415; 80053; 82378; 85025

== ENCOUNTER 2024-03-05 10:39 | Outpatient (AMB) | payer MEDICARE, MEDICAID, SELFPAY ==
--- NOTE | 2024-03-05 11:09 | MHC.OFFVIS ---
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 The patient is doing well the pain has completely resolved. The following workup was done so far: GC/CT negative. Last visit urine dip was negative. Pelvic ultrasound showed the following: The uterus is anteverted and measures 6.9 x 3.5 x 3.9 cm. Endometrial thickness is 3 mm. Trace amount of free fluid within the endometrial cavity. No significant free fluid. Nabothian cysts. Right ovary measures 2.9 x 2.0 x 1.9 cm, volume 5.8 mL. Left ovary measures 2.7 x 2.2 x 1.1 cm, volume of 3.4 mL. Bilateral ovaries are unremarkable. [facility] Medical History Rectal pain History of rectal cancer ASCUS with positive high risk HPV cervical Rectal cancer metastasized to lung (~2020) Mass of left lung Intractable pain Personal history of nicotine dependence Perianal dermatitis Vitamin D deficiency Gastroesophageal reflux disease Tubular adenoma H. pylori infection Chronic pain syndrome Sacroiliitis Lumbar back pain with radiculopathy affecting left lower extremity Surgical History History of lung surgery (~2022) History of colonoscopy History of tubal ligation (~1999) History of hemorrhoidectomy (~2007) History of low anterior resection of rectum (~07/2021) History of reversal of ileostomy (~12/2021) S/P anal fissurectomy (~2008) History of bursectomy (~2013) History of nasal polypectomy History of esophagogastroduodenoscopy (EGD) Family History Mother Diabetes HTN (hypertension) Father Diabetes Heart attack Brother Diabetes Heart problem HTN (hypertension) Maternal Aunt Breast cancer Sister Uterus cancer Maternal Aunt Breast cancer Mother Lung cancer Social History Household Members: Significant Other Housing: House Are you a primary lawn caretaker to a significant other at home: No Do you presently have visiting nurse or other home services: No Alcohol intake: never Patient Tobacco Use Status: Former Tobacco user e-Cigarette/Vaping Use: Never Used service: No Current occupational status: unemployed and disabled Cognitive needs: No Hearing needs: No Vision needs: No Review of Systems Const All systems reviewed & are unremarkable except as noted in HPI and below Reports as per HPI and Reports no additional complaints GI Reports no additional complaints Reports no additional complaints Physical Exam Vital Signs: BMI result Body Mass Index 23.7 Assessment & Plan Assessment & Plan (1) Pelvic pain: Code(s): R10.2 - Pelvic and perineal pain Category: Medical Plan: Discussed with the patient the results of the workup done including negative GC/chlamydia, urine dip and pelvic ultrasound. Differential diagnosis of freight broker causes that have not be ruled out yet include but not limited to endometriosis, pelvic adhesions , post an ablation syndrome or other. Recommended for the patient if pain persists to call back and to see her PCP for further workup for non freight broker causes; if the all the results are negative and the patient's pelvic pain is persistent, instructions given to patient to call back for further testing. Meanwhile, instructions were given the patient to go to emergency room or call in case of fever above 100.4, heavy vaginal bleeding, persistence or worsening of her pelvic pain. All questions answered, the patient verbalized understanding. Coding Level of Care Code Est Pt Level 3 (59709) Diagnoses Pelvic pain R10.2
[2024-03-05 11:10] VITALS: BMI 23.7
== END 2024-03-05 12:50 | disposition home or self-care (01) ==
PROVIDERS: PCP Internal Medicine; Visit Provider Obstetrics & Gynecology
DX: R10.2 Pelvic and perineal pain (principal)
CPT/HCPCS: 99213

== ENCOUNTER → 2024-03-05 10:39 | Outpatient (BNVA) | payer MEDICARE, MEDICAID, SELFPAY | PROVIDERS: PCP Internal Medicine; Visit Provider Obstetrics & Gynecology | DX: R10.2 Pelvic and perineal pain (principal) | CPT/HCPCS: 99212 ==

== ENCOUNTER 2024-03-06 12:08 | Outpatient (REF) | payer MEDICARE, MEDICAID, SELFPAY ==
--- NOTE | ~2024-03-06 | CT_ITS ---
EXAMINATION: CT CHEST, ABDOMEN AND PELVIS WITH CONTRAST CLINICAL INFORMATION: Follow-up on rectal cancer and pulmonary metastases. COMPARISON: CT chest 09/07/2023. CT abdomen and pelvis 04/16/2023. TECHNIQUE: Multidetector volumetric imaging was performed from the thoracic inlet through the pubic symphysis following administration of 85 mL Omnipaque 350. Sagittal and coronal reformatted images were obtained on the technologist's workstation. This CT examination was performed using dose optimization techniques as appropriate, variously including the following: *Automated exposure control *Adjustment of mA and/or kV according to patient size (this includes techniques or standardized protocols for targeted exams where dose is matched to indication/reason for exam; i.e. extremities or head) *Use of iterative reconstruction technique DLP: 636 mGy-cm FINDINGS: CHEST: Lung: Again seen are changes related to wedge resection in the left lower lobe . Mild bronchial thickening is noted. The lungs are otherwise clear without focal opacity or nodule concerning for metastases. Mediastinum: Right chest wall jugular port has its tip in the proximal right atrium. The central vascular structures are unremarkable. No hilar or mediastinal lymphadenopathy. Coronary Artery Calcium: None seen. Pericardium/Pleura: No significant effusion. No pleural mass or thickening. Chest Wall/Axilla: Unremarkable aside from chest wall port described above. ABDOMEN/PELVIS: Peritoneal Space: No significant free air or free fluid identified. Liver, Gallbladder, Biliary Tree: The liver is enlarged at 18.2 cm in cephalocaudad dimension with decreased attenuation suggesting steatosis. There is increased focal fat seen adjacent to the falciform ligament in the right lobe. No concerning solid focal hepatic lesion or biliary ductal dilatation is present. The gallbladder is unremarkable with no evidence of radiopaque gallstones, gallbladder wall thickening, or obvious pericholecystic inflammatory changes. Pancreas: Unremarkable Spleen: Unremarkable Adrenal Glands: Unremarkable Kidneys and Ureters: The kidneys are normal in size, shape, and attenuation. No hydronephrosis, hydroureter, or calculi seen. No perinephric stranding. Bladder: There is symmetric bladder wall thickening. Gastrointestinal Tract: There is some asymmetric wall thickening of the rectum, which is of questionable significance (11:64). There is sigmoid narrowing, which could be due to underdistention. A small bowel anastomosis is present in the distal ileum. The small and large bowel are otherwise unremarkable . The appendix is unremarkable. Abdominal Wall: No significant hernia is appreciated. Lymph Nodes: No lymphadenopathy. Vascular: The aorta appears normal.. The IVC appears unremarkable. PELVIC VISCERA: The uterus and adnexa are unremarkable. No free fluid present in the cul-de-sac. OSSEUS STRUCTURES: Minimal degenerative changes are noted in the spine. No bony destructive lesions are seen. CT/CT abdomen pelvis w IV con IMPRESSION: 1. No evidence of pulmonary metastatic disease. 2. There is an area of wall thickening in the rectum with a segment of narrowing. Given the history of rectal carcinoma, sigmoidoscopy is recommended. 3. No evidence of liver metastases. Fleischner guidelines were followed. Electronically signed by: Teto Gandhi MD 04/13/2024 01:37 PM EDT
[2024-03-06] MEDS: Diatrizoate Meglumine, Sodium 30 ML SOLUTION PO (15:35)
[2024-03-06] MEDS: iohexoL 350 MG/ML 100 ML INFUS..BTL IV (15:35)
[2024-03-06] MEDS: Barium Sulfate Oral (Mocha) 450 ML ORAL.SUSP 900 ML PO (15:37)
== END 2024-03-06 12:09 | disposition home or self-care (01) ==
LOC: HO.CT 12:08
PROVIDERS: PCP Internal Medicine; Visit Provider Internal Medicine Medical Oncology
DX: K62.89 Other specified diseases of anus and rectum (principal); C20 Malignant neoplasm of rectum; C78.00 Secondary malignant neoplasm of unspecified lung
CPT/HCPCS: 71260; 74177; Q9967

== ENCOUNTER 2024-03-13 13:00 | Outpatient (RCR) | payer MEDICARE, MEDICAID, SELFPAY ==
--- NOTE | 2024-03-06 16:25 | MHC.PT.EP ---
[facility] [place] Office [address] Office [place] Office [address] Sweetie Brennan [address] [phone] F: [phone] F: [phone] F: [phone] F: [phone] Physical Therapy Plan of Care Date of Evaluation: 03/06/24 Date of Surgery: Diagnosis: Weakness of LE Assessment: Pt is a 53 y/o F with who is referred to PT for eval and treat of LLE weakness resulting in decreased tolerance or ability for walking, negotiating stairs and squatting to lift something secondary to decreased hip ROM and strength, decreased knee strength, increased HS and piriformis tension and TTP over L greater trochanter and piriformis. Pt is motivated and is deemed an appropriate candidate to receive skilled PT services to address their physical impairments in order to improve their function. Frequency and Duration: The patient will be seen 2x/week for 4 weeks Short Term Goals: Initiate home exercise program. Pt will improve L hip flexion strength by 1/2 grade; initial 4/5. Pt will report at most 1/10 pain; initial 3/10. Global Sales Manager Goals: Pt will be I with home exercise program. Pt will report at most a little bit of difficulty with walking 2 blocks; initial quite a bit of difficulty. Pt will report at most a little bit of difficulty with lifting an object from the floor; initial quite a bit of difficulty. Pt will improve LEFI score by at least 9 points. Treatment Plan: Modalities to reduce pain, spasms and effusion. Manual therapy to restore motion and function. Therapeutic exercise to improve strength and flexibility. Neuromuscular re-education for posture and balance. Therapeutic activities to return to functional activities of daily living. Electronically signed by: Demarco Ordonez PT. Please sign and return to therapist. Thank you for your referral.
--- NOTE | 2024-03-29 11:19 | MHC.PT.DC ---
[facility] [place] Office [place] Office [place] Office [address] Sweetie Brennan [address] [phone] F: [phone] F: [phone] F: [phone] F: [phone] Physical Therapy Discharge Report Diagnosis: Weakness of LE Date of Surgery: Date of Evaluation: 03/06/24 Date of Discharge: Treatments to Date: 2 Cancellations to Date: 3 No Shows to Date: 3 Discharge Status: Visit Non-compliance Discharge Summary: Amanda has attended 1 appointment after her evaluation and logged 3 canceled appointments and 3 no show appointments and is DC'd per attendance policy . Electronically signed by: Demarco Ordonez PT. Please sign and return to therapist. Thank you for your referral.
== END 2024-03-29 11:20 | disposition home or self-care (01) ==
LOC: HO.PT 13:00
PROVIDERS: PCP Internal Medicine; Visit Provider Internal Medicine Medical Oncology
DX: R29.898 Other symptoms and signs involving the musculoskeletal system (principal)
CPT/HCPCS: 97110; 97161; 97162

== ENCOUNTER 2024-03-24 20:34 | Emergency (ER) | payer MEDICARE, MEDICAID, SELFPAY ==
--- NOTE | ~2024-03-24 | XR_ITS ---
EXAMINATION: XR TOES, LEFT CLINICAL INFORMATION: Toe injury. Pain. COMPARISON: None available. TECHNIQUE: 3 views of the left toes were obtained. FINDINGS: The bony structures are osteopenic. No fracture is seen. There does appear to be mild soft tissue swelling about the first digit. XR/XR toe LT min 2V IMPRESSION: Mild soft tissue swelling. No acute bony pathology. Electronically signed by: Grayson Ruelas MD 03/25/2024 01:45 AM EDT
--- NOTE | ~2024-03-24 | XR_ITS ---
EXAMINATION: XR KNEE, RIGHT CLINICAL INFORMATION: Trauma. Swelling and pain. COMPARISON: None available. TECHNIQUE: Four views of the right knee. FINDINGS: The bone mineralization is within normal limits. The joint spaces are maintained. There is no fracture. There is no significant joint effusion. XR/XR knee RT 4V IMPRESSION: No significant abnormality identified. Electronically signed by: Grayson Ruelas MD 03/25/2024 02:03 AM EDT
--- NOTE | ~2024-03-24 | CT_ITS ---
EXAMINATION: CT HEAD WITHOUT CONTRAST CT MAXILLOFACIAL WITHOUT CONTRAST CT CERVICAL SPINE WITHOUT CONTRAST CLINICAL INFORMATION: Trauma COMPARISON: None TECHNIQUE: Multidetector CT of the head, maxillofacial bones, and cervical spine was performed without intravenous contrast. Reformatted axial, coronal and sagittal images were reviewed. This CT examination was performed using dose optimization techniques as appropriate, variously including the following: *Automated exposure control *Adjustment of mA and/or kV according to patient size (this includes techniques or standardized protocols for targeted exams where dose is matched to indication/reason for exam; i.e. extremities or head) *Use of iterative reconstruction technique DLP: 1104 mGy-cm FINDINGS: HEAD: No intracranial hemorrhage, extra-axial fluid collection, or midline shift is identified. Castro-white matter differentiation is preserved. The ventricles are within normal limits. Basal cisterns are within normal limits. Paranasal sinuses are clear. Mastoid air cells and middle ear cavities are clear. No acute calvarial fractures. MAXILLOFACIAL: No acute fractures are identified. The globes, lenses, extraocular muscles, optic nerves, and intraconal fat appear within normal limits bilaterally. The lamina paprycea and floor and lateral horn of the orbits are intact. There is no TMJ dislocation. Mucosal thickening of the left maxillary sinus with dependently layering fluid. CERVICAL SPINE: There is no fracture, malalignment or prevertebral soft tissue abnormality seen in the cervical spine. There is no abnormal widening of the predental space, separation of the lateral masses of C1 or facet joint distraction. Vertebral body and intervertebral disc height are normal. No significant central canal or neuroforaminal stenosis. CT/CT cervical spine wo IV con IMPRESSION: CT HEAD: 1. No acute intracranial abnormality. CT MAXILLOFACIAL: 1. No acute traumatic injury to the maxillofacial bones. CT CERVICAL SPINE: 1. No acute fracture or traumatic spondylolisthesis of the cervical spine. Electronically signed by: Jagdish Bronson DO 03/24/2024 09:48 PM EDT
[2024-03-24 20:39] VITALS: BP 169/105; PULSE 102; RESP 18; TEMP 36.6; O2SAT 98; BMI 21.6
--- NOTE | 2024-03-24 20:39 | ED_ITS ---
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 She says that this evening she was sitting on a porch. She says that she stood up and then was planning on going down 2 steps when she lost her balance and fell forward. She struck her face against a fence made of concrete. She also landed on her knees. She has a lot of pain in her right knee. She also feels that she injured her left great toe. She has pain in her face, the right knee, and the left toe primarily. Related Data Home Medications ?Medication ?Instructions ?Recorded ?Confirmed cyanocobalamin (vitamin B-12) 1,000 mcg PO DAILY 01/10/22 02/10/24 1,000 mcg tablet cholecalciferol (vitamin D3) 50 50 mcg PO FR 10/29/22 02/10/24 mcg (2,000 unit) capsule Previous Rx's ?Medication ?Instructions ?Recorded ondansetron 8 mg disintegrating 8 mg PO Q8H #60 tabs 01/28/23 tablet docusate sodium 100 mg capsule 100 mg PO BID #60 caps 03/17/23 (Colace) menthol 0.44 %-zinc oxide 20.6 % 1 appl topical QID PRN perianal 03/17/23 topical ointment (Calmoseptine) skin irritation #113 grams diphenoxylate-atropine 2.5 1 tab PO TID #60 tabs 04/25/23 mg-0.025 mg tablet (Lomotil) menthol 0.44 %-zinc oxide 20.6 % 1 appl topical QID PRN perianal 06/16/23 topical ointment (Calmoseptine) irritation #113 grams megestrol 400 mg/10 mL (40 mg/mL) 800 mg (20 mL) PO DAILY #600 mL 07/14/23 oral suspension ketorolac 10 mg tablet 10 mg PO TID PRN pain 5 days #15 07/22/23 tabs omeprazole 20 mg capsule,delayed 20 mg PO DAILY@0630 #30 caps 09/20/23 release potassium chloride 10 mEq 20 meq (2 x 10 mEq) PO DAILY #30 12/22/23 tablet,extended release tabs folic acid 1 mg tablet 1 mg PO DAILY 90 days #90 tabs 12/30/23 oxycodone 10 mg tablet 10 mg PO Q8H PRN Breakthrough 03/21/24 Pain, Severe 10 days #30 tabs Allergies Allergy/AdvReac Type Severity Reaction Status Date / Time gabapentin AdvReac Unknown dizziness, Verified 03/24/24 20:40 lightheadedness ibuprofen AdvReac Unknown nausea and Verified 03/24/24 20:40 vomiting Review of Systems Review of Systems: Yes all other systems are reviewed and are negative PMFSH Past Medical History Medical History Rectal pain History of rectal cancer ASCUS with positive high risk HPV cervical Rectal cancer metastasized to lung (~2020) Mass of left lung Intractable pain Personal history of nicotine dependence Perianal dermatitis Vitamin D deficiency Gastroesophageal reflux disease Tubular adenoma H. pylori infection Chronic pain syndrome Sacroiliitis Lumbar back pain with radiculopathy affecting left lower extremity Surgical History History of lung surgery (~2022) History of colonoscopy History of tubal ligation (~1999) History of hemorrhoidectomy (~2007) History of low anterior resection of rectum (~07/2021) History of reversal of ileostomy (~12/2021) S/P anal fissurectomy (~2008) History of bursectomy (~2013) History of nasal polypectomy History of esophagogastroduodenoscopy (EGD) Family History Family History Mother Diabetes HTN (hypertension) Father Diabetes Heart attack Brother Diabetes Heart problem HTN (hypertension) Maternal Aunt Breast cancer Sister Uterus cancer Maternal Aunt Breast cancer Mother Lung cancer Social History Social History Household Members: Significant Other Housing: House Are you a primary director of healthcare systems to a significant other at home: No Do you presently have visiting nurse or other home services: No Alcohol intake: never Patient Tobacco Use Status: Former Tobacco user Smoked in Last 30 Days: No e-Cigarette/Vaping Use: Never Used Use of substances other than those prescribed or required for medical reasons: No Advance Directives: No Advance Directives Information Provided: No Do you have a plan to hurt others: No Plan Patient : No service: No Current occupational status: unemployed and disabled Cognitive needs: No Hearing needs: No Vision needs: No Physical Exam Vital Signs: Vital Signs: Last Vital Signs Temp 98.8 F 03/25/24 02:47 Pulse 69 03/25/24 02:47 Resp 18 03/25/24 02:47 BP 137/86 03/25/24 02:47 Pulse Ox 99 03/25/24 02:47 O2 Del Method Room Air 03/25/24 02:47 BMI result Body Mass Index 21.6 Const: Other: The patient is awake and alert, pleasant and cooperative. She has some obvious signs of bruising to the face. Her mental status is normal. HEENT: Other: There is some swelling to the nose and some abrasions on the cheeks. No full- thickness skin injuries. No nasal bleeding. No trismus. No dental injuries. Eyes: Other: No signs of try him to the eyes or eyelids. General: appearance normal, both eyes and all related structures Neck: Other: Mild posterior generalized C-spine tenderness. Chest: Other: No significant chest wall tenderness. Resp: Effort & Inspection: normal respiratory effort Auscultation: clear to auscultation bilaterally Cardio: Rate: regular rate Rhythm: regular rhythm Heart sounds: S1 normal heart sound present and S2 normal heart sound present GI: Other: Abdomen is soft and nontender Skin: Other: the patient has swelling to the skin of the nose and some abrasions on the face. both knees have abrasions. There is ecchymosis to the skin of the left great toe. No full-thickness skin injuries. Neuro: Other: The patient is awake and alert with a normal mental status. Cranial nerves are grossly intact. The patient moves all extremities appropriately. Extrem: Other: The patient has abrasions to the skin of both knees. The left great toe shows signs of contusion and tenderness without gross deformity. There is swelling to the lower portion of the right knee. The patient has pain with range of motion of the right knee. The left knee is less painful and shows no swelling. Much better range of motion of the left knee. Course Course Course Narrative: This is an RME: Additional HPI, ROS, PE not included below will be deferred to primary provider. RME assessment and note performed by: Sammie Stockton PA-C This is a [id number]-female who presents to the ER with complaints of facial pain s/p fall which occured 30 minutes ago. Reports that she stood up and her legs gave out on her and she fell down two steps and landed face first onto the concrete. No LOC. Right sided facial swelling and ecchymosis seen. She is not on AC. Plan: CT head, neck and facial bones Medications Administered Discontinued Medications Generic Name Dose Route Start Last Admin Trade Name Tomásq PRN Reason Stop Dose Admin Acetaminophen 975 mg 03/25/24 00:08 03/25/24 00:12 Acetaminophen 325 Mg Tablet PO 03/25/24 00:09 975 mg ONCE ONE Administration Ketorolac Tromethamine 30 mg 03/25/24 00:34 03/25/24 01:58 Ketorolac Tromethamine 30 Mg/Ml Vial IM 03/25/24 00:35 30 mg ONCE ONE Administration Medical Decision Making Medical Decision Making MDM Narrative: The patient sustained what sounds like a mechanical fall going down some steps of her porch. She struck her face and landed on her knees. She has some signs of abrasions and contusions to her face but her facial CT was read as negative. Head CT and cervical spine CT are negative. An x-ray of the left knee I thought might show a knee effusion but there was no effusion or fracture on the x-ray. The left great toe x-ray shows no fracture. Overall the patient seems to have sustained bruises and abrasions but no fractures or internal injuries. She was given an injection of ketorolac for pain. She felt well enough for discharge after her negative workup. She has oxycodone at home. Discharge Plan Discharge Clinical Impression: Fall, Head injury, Facial contusion, Contusion of right knee, Contusion of great toe of left foot Patient Disposition: Home, Self-Care Additional Instructions: The CT scans of your head, your face, and the bones of your neck do not show any dangerous injuries or fractures. The x-ray of your right knee end of your left toe also does not show any fractures. You seemed to have a lot of bruising. Please use acetaminophen (Tylenol) and your oxycodone as needed for pain. Rest and take it easy. Use ice on the bruised parts of your body. Please follow up this week with your regular doctor for a recheck. Return to the emergency room if you feel significantly worse. Prescriptions: No Action menthol-zinc oxide [Calmoseptine] 0.44-20.6 % ointment 1 appl topical QID PRN (Reason: perianal irritation) Qty: 113 2RF omeprazole 20 mg capsule,delayed release(DR/EC) 20 mg PO DAILY@0630 Qty: 30 3RF potassium chloride 10 mEq tablet extended release 20 meq PO DAILY Qty: 30 5RF folic acid 1 mg tablet 1 mg PO DAILY 90 Days Qty: 90 3RF oxycodone 10 mg tablet 10 mg PO Q8H PRN (Reason: Breakthrough Pain, Severe) 10 Days Qty: 30 0RF Rx Instructions: Partial Fill upon patient request; refill Rx only when due ondansetron 8 mg Tablet,Disintegrating 8 mg PO Q8H Qty: 60 3RF diphenoxylate-atropine [Lomotil] 2.5-0.025 mg Tablet 1 tab PO TID Qty: 60 3RF megestrol 400 mg/10 mL (40 mg/mL) Suspension 800 mg PO DAILY Qty: 600 3RF cyanocobalamin (vitamin B-12) 1,000 mcg Tablet 1,000 mcg PO DAILY cholecalciferol (vitamin D3) 50 mcg (2,000 unit) capsule 50 mcg PO FR ketorolac 10 mg tablet 10 mg PO TID PRN (Reason: pain) 5 Days Qty: 15 0RF menthol-zinc oxide [Calmoseptine] 0.44-20.6 % ointment 1 appl topical QID PRN (Reason: perianal skin irritation) Qty: 113 0RF docusate sodium [Colace] 100 mg capsule 100 mg PO BID Qty: 60 2RF Referrals: Ky Lin MD [Primary Care Provider] - (Multiple contusions following a fall) Interventions: ED Discharge Assessment Last Done: 03/25/24 02:47 Discharge Date/Time: 03/25/24 02:48 Print Language: Taiwanese
[2024-03-25 00:02] VITALS: BP 137/86; PULSE 69; PULSE 70; RESP 18; TEMP 37.1; O2SAT 99
[2024-03-25] MEDS: Acetaminophen 325 MG TABLET 975 MG PO (00:12)
[2024-03-25] MEDS: Ketorolac Tromethamine 30 MG/ML VIAL IM (01:58)
[2024-03-25 02:47] VITALS: BP 137/86; PULSE 69; RESP 18; TEMP 37.1; O2SAT 99
== END 2024-03-25 02:48 | disposition home or self-care (01) ==
PROVIDERS: Emergency Provider Emergency Medicine; PCP Internal Medicine
DX: S80.01XA Contusion of right knee, initial encounter (principal); S90.112A Contusion of left great toe without damage to nail, initial encounter; R51.9 Headache, unspecified; M54.2 Cervicalgia; M79.672 Pain in left foot; M25.561 Pain in right knee; W10.9XXA Fall (on) (from) unspecified stairs and steps, initial encounter; Y93.89 Activity, other specified; Y92.89 Other specified places as the place of occurrence of the external cause; Y99.8 Other external cause status; Z79.899 Other long term (current) drug therapy
CPT/HCPCS: 70450; 70486; 72125; 73564; 73660; 96372; 99284; J1885

== ENCOUNTER 2024-03-30 09:53 | Outpatient (AMB) | payer MEDICARE, MEDICAID, SELFPAY ==
--- NOTE | 2024-03-30 09:57 | A.OFFPC_ITS ---
Vital Signs 03/30/24 09:58 Height 5 ft 2 in Weight 120 lb 4 oz BMI 22.0 BP 100/60 Blood Pressure Location Lt brachial Position Sitting Intake Visit Reasons: 3mth f/u Intake Note: Patient is here to follow up on GERD, Chronic pain. Pt decline flu shot today Environmental Designer Required: No Sales Promotion Coordinator: Not Required per policy Accompanied by: Self / Same As Patient Allergies gabapentin Adverse Reaction (Unknown, Verified 03/30/24 09:58) dizziness, lightheadedness ibuprofen Adverse Reaction (Unknown, Verified 03/30/24 09:58) nausea and vomiting Tobacco use date assessed: 03/30/24 Dental Screening Dental Screen Date: 08/26/23 HPI 3mth f/u HPI Details Patient comes in today for her follow up visit She accidentally tripped and fell on her face (on concrete floor) last weekend and sustained significant contusions on right knee and on the right side of her face She went to the ER for evaluation and imaging studies (head and facial CT and right knee x-rays) fortunately showed no acute fractures She currently still has some bruising and pain over her right knee and on her right cheek just under her eye but states that these are slowly subsiding/resolving She continues to experience increased pain (chronic) in her left hip as well as inside her pelvic area as well as over her lower back and continues to require opioids to help manage her (chronic) pain - will need her Oxycodone Rx refilled today She also continues to experience frequent numbness and tingling sensation in her extremities, which are likely neuropathy resulting from her chemotherapy She has also been experiencing some recurrent throbbing pain in her perirectal area over the past few months and has been seen for this by Dr. Frye a couple of months ago and is now scheduled for a repeat colonoscopy later this month She completed her chemotherapy for metastatic rectal cancer into her lungs back in June 2023 - she received her last treatment (6th cycle) of FOLFIRI with bevacizumab on 07/05/2023 (started Tx on 02/09/2023) She subsequently reportedly did not wish to continue further chemotherapy and did not return to oncology for follow up until 10/31/[address] and bone scan have so far shown no evidence of recurrence of her cancer; she had some CTs done again last month but the reports on these are still pending as of today's visit She reports that she still experiences fatigue often but denies any headaches or dizziness Denies any chest pains, no increased SOB No nausea/vomiting, no abdominal pain No change in bowel habits noted [facility] Medical History (Updated 03/30/24 @ 12:41 by Ky Lin MD) Osteoarthritis of sacroiliac joint Rectal pain History of rectal cancer ASCUS with positive high risk HPV cervical Rectal cancer metastasized to lung (~2020) Mass of left lung Intractable pain Personal history of nicotine dependence Perianal dermatitis Vitamin D deficiency Gastroesophageal reflux disease Tubular adenoma H. pylori infection Chronic pain syndrome Sacroiliitis Lumbar back pain with radiculopathy affecting left lower extremity Surgical History History of lung surgery (~2022) History of colonoscopy History of tubal ligation (~1999) History of hemorrhoidectomy (~2007) History of low anterior resection of rectum (~07/2021) History of reversal of ileostomy (~12/2021) S/P anal fissurectomy (~2008) History of bursectomy (~2013) History of nasal polypectomy History of esophagogastroduodenoscopy (EGD) Family History Mother Diabetes HTN (hypertension) Father Diabetes Heart attack Brother Diabetes Heart problem HTN (hypertension) Maternal Aunt Breast cancer Sister Uterus cancer Maternal Aunt Breast cancer Mother Lung cancer Other Mental health disorder Social History Household Members: Significant Other Housing: House Are you a primary animal care provider to a significant other at home: No Do you presently have visiting nurse or other home services: No Alcohol intake: never Patient Tobacco Use Status: Former Tobacco user e-Cigarette/Vaping Use: Never Used Second Hand Smoke Exposure: Yes service: No Current occupational status: unemployed and disabled Cognitive needs: No Hearing needs: No Vision needs: No Questionnaire Thrive Questionnaire Date Thrive assessed: 08/26/23 Are you currently unemployed and looking for a job?: Yes TACHO-7 AMB Questionnaire TACHO-7 Date TACHO - 7 assessed: 08/26/23 Source: Developed by Drs. Chilango Rios, Ana Cash, Ziggy Rios and colleagues, with an educational eleuterio from [employer]. Review of Systems Const Details: (+) residual pain and contusion on her right cheek area (from her fall last ) Denies chills, Reports fatigue, Denies fever(s) and Denies headache(s) ENT Denies dysphagia, Denies dizziness, Denies otalgia, Denies headache(s), Denies neck pain, Denies odynophagia and Denies sore throat Card Denies chest pain, Denies palpitations and Denies dyspnea Resp Denies chest congestion, Denies cough and Denies dyspnea GI Details: (+) recurrent rectal burning sensation; (+) recurrent perirectal pain over the past few months Denies abdominal pain, Denies constipation, Denies dysphagia, Denies heartburn, Denies diarrhea, Denies nausea, Denies odynophagia and Denies vomiting Details: c/o deep pelvic pain - S/P low anterior resection of rectum in 07/2021 Denies difficulty voiding, Denies nocturia, Denies dysuria and Denies urinary urgency Musc Reports back pain (over the lower back - increasing recently), Reports arthralgias (left hip - chronic; right knee (from her fall last )), Denies neck pain, Reports numbness (in the extremities) and Reports tingling (in the extremities) Skin/Breast Denies rash Neuro Denies dizziness, Denies headache(s), Reports numbness (in the extremities) and Reports tingling (in the extremities) Endo Reports fatigue and Denies palpitations Physical exam (Primary Care) Vital Signs: Last Vital Signs BP 100/60 03/30/24 09:58 BMI result Body Mass Index 22.0 Tobacco/Smoking Status: Tobacco use Status Tobacco use date assessed 03/30/24 03/30/24 10:03 Patient Tobacco Use Status Former Tobacco user 03/30/24 10:03 e-Cigarette/Vaping Use Never Used 03/30/24 10:03 Thrive Assessment: Date of Thrive Assessment Date Thrive assessed 08/26/23 03/30/24 10:03 Const General: no acute distress and alert HENMT Other: (+) small area of contusion/ecchymoses and mild tenderness over the right cheek, just under and to the side of the right eye Ears: TM's normal bilaterally and EAC's normal Throat: Yes posterior oropharynx normal and Yes tonsils normal (no TP congestion) Neck Neck: Yes no lymphadenopathy and Yes supple Thyroid: Thyroid normal Resp Auscultation: clear to auscultation bilaterally, no rales and no wheezes Cardio Rate: regular rate Rhythm: regular rhythm Heart sounds: no murmurs GI Palpation (GI): Soft to palpation and nontender Auscultation: normal bowel sounds General: Yes no CVA tenderness Back/Spine/Pelvis Back: no CVA tenderness Thoracic/Lumbar Spine: lumbar spinal tenderness Skin Rashes: no rashes Extrem General: Yes no clubbing, cyanosis or edema Right lower extremity: knee Details: tenderness, swelling (mild), normal ROM and ecchymosis Coding Level of Care Code Est Pt Level 4 (03252) Diagnoses Contusion of face, sequela S00.83XS Encounter type: sequela Contusion of right knee, sequela S80.01XS Encounter type: sequela Rectal pain K62.89 Osteoarthritis of sacroiliac joint M46.1 Left hip pain M25.552 Lumbar back pain with radiculopathy affecting left lower extremity M54.16 Adenocarcinoma of rectum C20 Rectal cancer metastasized to lung C20; C78.00 Gastroesophageal reflux disease, unspecified whether esophagitis present K21.9 Esophagitis presence: esophagitis presence not specified Vitamin D deficiency E55.9 Anxiety F41.9 Assessment & Plan Assessment & Plan (1) Facial contusion: Code(s): S00.83XA - Contusion of other part of head, initial encounter Category: Medical Qualifiers: Encounter type: sequela Qualified Code(s): S00.83XS - Contusion of other part of head, sequela Plan: Resolving - S/P fall last weekend (03/24/2024) Head and facial CT done at the ER last week came back negative for acute fractures Have advised her that she can apply some warm compress over the right side of her face/cheek PRN for symptomatic relief (2) Contusion of right knee: Code(s): S80.01XA - Contusion of right knee, initial encounter Category: Medical Qualifiers: Encounter type: sequela Qualified Code(s): S80.01XS - Contusion of right knee, sequela Plan: Resolving - S/P fall on right knee last weekend X-rays of the right knee done at the ER last weekend was also negative for acute fracture(s) or injury (3) Rectal pain: Code(s): K62.89 - Other specified diseases of anus and rectum Category: Medical Plan: She was reportedly not able to tolerate anoscopic examination in the office and is now scheduled for repeat colonoscopy for further evaluation Follow up with Dr. Frye as scheduled (4) Osteoarthritis of sacroiliac joint: Code(s): M46.1 - Sacroiliitis, not elsewhere classified Category: Medical Plan: X-rays of the SI joints done back in November 2023 revealed (+) moderate degenerative changes bilateral sacroiliac joints States that her current Rx are helping with the pain for now Have advised her of the option of going back to pain management for this later on (5) Left hip pain: Code(s): M25.552 - Pain in left hip Category: Medical Plan: Left hip x-rays done back in November 2023 revealed again a sclerotic focus overlying the left femoral neck possibly representing a bone lesion such as a bone island versus soft tissue calcification Have recommended that she see orthopedics for this Patient states that she will call for referral once her current and more urgent issues have been addressed (6) Lumbar back pain with radiculopathy affecting left lower extremity: Code(s): M54.16 - Radiculopathy, lumbar region Category: Medical Plan: Reinforced activity and weight-lifting restrictions She was seeing Pain Management for follow-up previously and was considering other treatment options, including intrathecal delivery system, but these were all put on hold when she was diagnosed with rectal cancer a couple of years ago She had an appointment with Dr. Aguilar on 06/29/22 but she reportedly overslept and missed her appt then and has not been back to see pain management since Continue Oxycodone 10 mg Q 8 hours PRN for now Rx refilled today) Have advised her of the option of referring her back to pain management once her cancer is completely cleared up and she is a little further out from her overall diagnosis and treatment (7) Adenocarcinoma of rectum: Onset Date: ~2020 Comment: (Invasive Adenocarcinoma - s/p resection 07/31/21, radiation and Xeloda - mets to lung s/p LLL wedge 10/2022) Code(s): C20 - Malignant neoplasm of rectum Category: Medical Plan: S/P surgical (low anterior) resection and loop ileostomy by Dr. Hackett at [facility] in [place] on 07/31/2021; she later underwent ileostomy reversal on 01/08/2022 also at [facility] She completed radiation therapy and Xeloda in 11/2021; she was then treated with modified FOLFOX 6 but repeat imaging studies last year showed (+) lung mets for which she underwent wedge resection and also completed adjuvant chemotherapy Follow up with oncology (Dr. Macdonald) as scheduled (8) Rectal cancer metastasized to lung: Onset Date: ~2020 Comment: (Adenocarcinoma - s/p resection 07/31/21, radiation and Xeloda - met to lung s/p LLL wedge 10/2022) Code(s): C20 - Malignant neoplasm of rectum; C78.00 - Secondary malignant neoplasm of unspecified lung Category: Medical Plan: This was first noted incidentally on abdominal and pelvic CT done in July [address] done on 09/07/2022 confirmed the 1.5 cm left lower lobe lung mass with weak FDG activity, suspicious for malignancy S/P VATS and wedge resection by Dr Neil in October 2022 She was tarted on FOLFIRI with Avastin on 02/09/2023 and she completed adjuvant chemotherapy in late June [address] on 09/07/2023 and bone scan done a few weeks ago have so far shown no evidence of recurrence of her cancer She had follow up CTs done again last month - reports are still pending as of today's visit Follow up with oncology as scheduled (9) Gastroesophageal reflux disease: Code(s): K21.9 - Gastro-esophageal reflux disease without esophagitis Category: Medical Qualifiers: Esophagitis presence: esophagitis presence not specified Qualified Code(s): K21.9 - Gastro-esophageal reflux disease without esophagitis Plan: Dietary restrictions reinforced Continue Omeprazole 20 mg QD (10) Vitamin D deficiency: Code(s): E55.9 - Vitamin D deficiency, unspecified Category: Medical Plan: Continue Vitamin D3 2000 units QD (11) Anxiety: Code(s): F41.9 - Anxiety disorder, unspecified Category: Medical Plan: Continue Hydroxyzine 25 mg BID PRN Plan Follow up in 3 months Medications: Refilled oxycodone Partial Fill upon patient request; refill Rx only when due 10 mg PO Q8H 10 days PRN 30 tabs 0RF Breakthrough Pain, Severe
[2024-03-30 09:58] VITALS: BP 100/60; BMI 22.0
== END 2024-03-30 10:54 | disposition home or self-care (01) ==
PROVIDERS: PCP Internal Medicine; Visit Provider Internal Medicine
DX: M46.1 Sacroiliitis, not elsewhere classified (principal); C20 Malignant neoplasm of rectum; C78.00 Secondary malignant neoplasm of unspecified lung; S00.83XA Contusion of other part of head, initial encounter; S80.01XA Contusion of right knee, initial encounter; K62.89 Other specified diseases of anus and rectum; M25.552 Pain in left hip; M54.16 Radiculopathy, lumbar region; K21.9 Gastro-esophageal reflux disease without esophagitis; E55.9 Vitamin D deficiency, unspecified; F41.9 Anxiety disorder, unspecified

== ENCOUNTER → 2024-03-30 09:53 | Outpatient (BNVA) | payer MEDICARE, MEDICAID, SELFPAY | PROVIDERS: PCP Internal Medicine; Visit Provider Internal Medicine | DX: S00.83XS Contusion of other part of head, sequela (principal); S80.01XS Contusion of right knee, sequela; K62.89 Other specified diseases of anus and rectum; M46.1 Sacroiliitis, not elsewhere classified; M25.552 Pain in left hip; M54.16 Radiculopathy, lumbar region; C20 Malignant neoplasm of rectum; C78.00 Secondary malignant neoplasm of unspecified lung; K21.9 Gastro-esophageal reflux disease without esophagitis; E55.9 Vitamin D deficiency, unspecified; F41.9 Anxiety disorder, unspecified | CPT/HCPCS: 99212 ==

== ENCOUNTER 2024-04-13 10:40 | Outpatient (AMB) | payer MEDICARE, MEDICAID, SELFPAY ==
--- NOTE | 2024-04-13 10:44 | MHC.OFFVIS ---
Vital Signs 04/13/24 10:45 Height 5 ft 2 in Weight 121 lb 4.068 oz BMI 22.2 BP 139/78 Blood Pressure Location Lt brachial Position Sitting Pulse 73 Intake Visit Reasons: follow up for colo Intake Note: Amanda presents in the office as a follow up colonoscopy. CC: 2 weeks ago she was concerned because she had a little bit of bleeding. It happened two seperate times and she thinks it may be a hemorrhoid and it has not happened since. Allergies gabapentin Adverse Reaction (Unknown, Verified 04/13/24 10:45) dizziness, lightheadedness ibuprofen Adverse Reaction (Unknown, Verified 04/13/24 10:45) nausea and vomiting HPI HPI follow up for colo: Details: 53 yr old f here for f/u She had Rectal adenocarcinoma with surgery and chemo, XRT 2020 She had a lung lesion thought to be met with surgeyr and then further chemo Now: she had one episode of rectal bleeding she noted blood on wiping, she denies diarrhea or constipation no nausea or vomiting, appetite is ok, on and off Last colo: 2021- one polyp removed, radiation colopathy noted HGB: 14 g/dl --03/20 EXAM: GENERAL: The patient is well developed and nontoxic. VITAL SIGNS:see workflow HEENT: Nonicteric sclerae, PERRLA, EOMI. Oropharynx clear. Moist mucous membranes. Conjunctivae appear well perfused. No thyroid mass. CHEST: Chest wall is nontender. HEART: Regular rate and rhythm without murmurs. LUNGS: Clear to auscultation bilaterally. ABDOMEN: Soft, positive bowel sounds, nontender, no organomegaly.no flank tenderness SKIN: No rash, no excessive bruising, petechiae, or purpura. NEUROLOGIC: Cranial nerves II-XII intact without motor/sensory deficit. Psych: normal affect A/P: 1/ isolated episode of rectal bleeding, no other GI sx --could be hemorrhoidal or from radiation colopathy0--recent hgb was normal PLAN: 1/ colonsocopy for further Ix also due anyway due to her hx PFSH Medical History Osteoarthritis of sacroiliac joint Rectal pain History of rectal cancer ASCUS with positive high risk HPV cervical Rectal cancer metastasized to lung (~2021) Mass of left lung Intractable pain Personal history of nicotine dependence Perianal dermatitis Vitamin D deficiency Gastroesophageal reflux disease Tubular adenoma H. pylori infection Chronic pain syndrome Sacroiliitis Lumbar back pain with radiculopathy affecting left lower extremity Surgical History History of lung surgery (~2022) History of colonoscopy History of tubal ligation (~1999) History of hemorrhoidectomy (~2007) History of low anterior resection of rectum (~07/2021) History of reversal of ileostomy (~12/2021) S/P anal fissurectomy (~2008) History of bursectomy (~2013) History of nasal polypectomy History of esophagogastroduodenoscopy (EGD) Family History Mother Diabetes HTN (hypertension) Father Diabetes Heart attack Brother Diabetes Heart problem HTN (hypertension) Maternal Aunt Breast cancer Sister Uterus cancer Maternal Aunt Breast cancer Mother Lung cancer Other Mental health disorder Social History Household Members: Significant Other Housing: House Are you a primary spiritual care coordinator to a significant other at home: No Do you presently have visiting nurse or other home services: No Alcohol intake: never Patient Tobacco Use Status: Former Tobacco user e-Cigarette/Vaping Use: Never Used Second Hand Smoke Exposure: Yes service: No Current occupational status: unemployed and disabled Cognitive needs: No Hearing needs: No Vision needs: No Physical Exam Vital Signs: Last Vital Signs Pulse 73 04/13/24 10:45 BP 139/78 04/13/24 10:45 BMI result Body Mass Index 22.2 Assessment & Plan Assessment & Plan (1) History of rectal cancer: Code(s): Z85.048 - Personal history of other malignant neoplasm of rectum, rectosigmoid junction, and anus Category: Medical Plan: as above Medications: New sodium,potassium,mag sulfates 17.5-3.13-1.6 gram (Suprep Bowel Prep Kit) DILUTE; drink 1/2 at 6-8 pm and half at 11 PM- 1AM 354 mL 0RF Discontinued megestrol Discontinued Reason: Patient no longer taking 800 mg (20 mL) PO DAILY 600 mL 3RF diphenoxylate-atropine 2.5-0.025 mg (Lomotil) Discontinued Reason: Patient no longer taking 1 tab PO TID 60 tabs 3RF menthol-zinc oxide 0.44-20.6 % (Calmoseptine) Discontinued Reason: Duplicate 1 appl topical QID PRN 113 grams 0RF perianal skin irritation docusate sodium (Colace) Discontinued Reason: Patient no longer taking 100 mg PO BID 60 caps 2RF Coding Level of Care Code Est Pt Level 3 (38241) Diagnoses History of rectal cancer Z85.048
[2024-04-13 10:45] VITALS: BP 139/78; PULSE 73; BMI 22.2
== END 2024-04-13 11:22 | disposition home or self-care (01) ==
PROVIDERS: PCP Internal Medicine; Visit Provider Internal Medicine Gastroenterology
DX: Z85.048 Personal history of other malignant neoplasm of rectum, rectosigmoid junction, and anus (principal)
CPT/HCPCS: 99213

== ENCOUNTER → 2024-04-13 10:40 | Outpatient (BNVA) | payer MEDICARE, MEDICAID, SELFPAY | PROVIDERS: PCP Internal Medicine; Visit Provider Internal Medicine Gastroenterology | DX: Z85.048 Personal history of other malignant neoplasm of rectum, rectosigmoid junction, and anus (principal) | CPT/HCPCS: 99212 ==

== ENCOUNTER 2024-05-11 10:00 | Day surgery (SDC) | payer MEDICARE, MEDICAID, SELFPAY ==
[2024-05-08 15:20] VITALS: BMI 22.1
--- NOTE | 2024-05-10 09:44 | P.CONAN_ITS ---
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 pylori infection (Acute) Gastroesophageal reflux disease (Acute) Perianal dermatitis (Acute) Vitamin D deficiency (Acute) Chronic pain syndrome (Acute) Sacroiliitis (Acute) Lumbar back pain with radiculopathy affecting left lower extremity (Acute) Past Medical History Medical History Port-A-Cath in place Osteoarthritis of sacroiliac joint Rectal pain History of rectal cancer Rectal cancer metastasized to lung (~2020) Mass of left lung Intractable pain Personal history of nicotine dependence Perianal dermatitis Vitamin D deficiency ASCUS with positive high risk HPV cervical Gastroesophageal reflux disease Tubular adenoma H. pylori infection Chronic pain syndrome Sacroiliitis Lumbar back pain with radiculopathy affecting left lower extremity Family History Family History Mother Diabetes HTN (hypertension) Father Diabetes Heart attack Brother Diabetes Heart problem HTN (hypertension) Maternal Aunt Breast cancer Sister Uterus cancer Maternal Aunt Breast cancer Mother Lung cancer Other Mental health disorder Family history of problems with anesthesia: No Surgical History Surgical History History of lung surgery (~2022) History of colonoscopy History of tubal ligation (~1999) History of hemorrhoidectomy (~2007) History of low anterior resection of rectum (~07/2021) History of reversal of ileostomy (~12/2021) S/P anal fissurectomy (~2008) History of bursectomy (~2013) History of nasal polypectomy History of esophagogastroduodenoscopy (EGD) History of Problems with Anesthesia: No Social History Social History Household Members: Significant Other Housing: House Are you a primary critical care unit nurse to a significant other at home: No Do you presently have visiting nurse or other home services: No Alcohol intake: never Patient Tobacco Use Status: Former Tobacco user e-Cigarette/Vaping Use: Never Used Second Hand Smoke Exposure: Yes Have you been hit, kicked, punched, or otherwise hurt by someone within the past year? If so, by whom?: No Are you DNR?: No Advance Directives: No Advance Directives Information Provided: Yes Recently lost weight without trying: No Nutrition Risks: No Nutritional Risk service: No Current occupational status: unemployed and disabled Cognitive needs: No Hearing needs: No Vision needs: No Meds Allergies Allergy/AdvReac Type Severity Reaction Status Date / Time gabapentin AdvReac Unknown dizziness, Verified 04/13/24 10:45 lightheadedness ibuprofen AdvReac Unknown nausea and Verified 04/13/24 10:45 vomiting Home Medications ?Medication ?Instructions ?Recorded ?Confirmed ?Last Taken ?Type cyanocobalamin (vitamin B-12) 1,000 mcg PO DAILY 01/10/22 05/08/24 10/29/22 History 1,000 mcg tablet cholecalciferol (vitamin D3) 50 50 mcg PO FR 10/29/22 05/08/24 10/29/22 History mcg (2,000 unit) capsule Exam Height,Weight and Vital Signs: Height 5 ft 2 in Weight 54.885 kg Pertinent Lab Results Pertinent Lab Results: Laboratory Tests 03/02/24 11:20 WBC 4.9 Hgb 14.4 Hct 43.4 Plt Count 225 Sodium 146 H Potassium 4.4 Chloride 107 Carbon Dioxide 26 BUN 3 L Creatinine 0.89 Narrative Narrative: EKG 12/2023 Vent. Rate : 065 BPM Atrial Rate : 065 BPM P-R Int : 098 ms QRS Dur : 084 ms QT Int : 446 ms P-R-T Axes : -10 062 023 degrees QTc Int : 463 ms Sinus rhythm with short MA Otherwise normal ECG When compared with ECG of 08-APR-2021 06:42, Vent. rate has decreased BY 34 BPM Assessment and Plan Assessment Anesthesia Assessment: Chart Reviewed Final Anesthetic Review Family History of Problems with Anesthesia: No History of Problems with Anesthesia: No Documented by User: Angely Brito MD 05/11/24 11:30 [facility] Past Medical History Medical History Port-A-Cath in place Osteoarthritis of sacroiliac joint Rectal pain History of rectal cancer Rectal cancer metastasized to lung (~2020) Mass of left lung Intractable pain Personal history of nicotine dependence Perianal dermatitis Vitamin D deficiency ASCUS with positive high risk HPV cervical Gastroesophageal reflux disease Tubular adenoma H. pylori infection Chronic pain syndrome Sacroiliitis Lumbar back pain with radiculopathy affecting left lower extremity Family History Family History Mother Diabetes HTN (hypertension) Father Diabetes Heart attack Brother Diabetes Heart problem HTN (hypertension) Maternal Aunt Breast cancer Sister Uterus cancer Maternal Aunt Breast cancer Mother Lung cancer Other Mental health disorder Family history of problems with anesthesia: No Surgical History Surgical History History of lung surgery (~2022) History of colonoscopy History of tubal ligation (~1999) History of hemorrhoidectomy (~2007) History of low anterior resection of rectum (~07/2021) History of reversal of ileostomy (~12/2021) S/P anal fissurectomy (~2008) History of bursectomy (~2013) History of nasal polypectomy History of esophagogastroduodenoscopy (EGD) History of Problems with Anesthesia: No Social History Social History Household Members: Significant Other Housing: House Are you a primary critical care unit nurse to a significant other at home: No Do you presently have visiting nurse or other home services: No Alcohol intake: never Patient Tobacco Use Status: Former Tobacco user e-Cigarette/Vaping Use: Never Used Second Hand Smoke Exposure: Yes Have you been hit, kicked, punched, or otherwise hurt by someone within the past year? If so, by whom?: No Are you DNR?: No Advance Directives: No Advance Directives Information Provided: Yes Recently lost weight without trying: No Nutrition Risks: No Nutritional Risk service: No Current occupational status: unemployed and disabled Cognitive needs: No Hearing needs: No Vision needs: No Meds Allergies Allergy/AdvReac Type Severity Reaction Status Date / Time gabapentin AdvReac Unknown dizziness, Verified 04/13/24 10:45 lightheadedness ibuprofen AdvReac Unknown nausea and Verified 04/13/24 10:45 vomiting Home Medications ?Medication ?Instructions ?Recorded ?Confirmed ?Last Taken ?Type cyanocobalamin (vitamin B-12) 1,000 mcg PO DAILY 01/10/22 05/08/24 10/29/22 History 1,000 mcg tablet cholecalciferol (vitamin D3) 50 50 mcg PO FR 10/29/22 05/08/24 10/29/22 History mcg (2,000 unit) capsule Exam Height,Weight and Vital Signs: Height 5 ft 2 in Weight 54.885 kg Vital Signs Temp Pulse Resp BP Pulse Ox O2 Del Method 05/11/24 10:54 98.1 F 79 18 155/82 H 97 Room Air Airway Mallampati Class: II TM Dist: >3cm Neck ROM: Full Partial: Upper Loose/Missing/Broken Teeth: Yes (Partial dentures top. Broken tooth bottom left back. Denies loose teeth) Heart: RRR Lungs: CTAB Assessment and Plan Assessment Anesthesia Assessment: Anesthesia Plan Discussed and Chart Reviewed Final Anesthetic Review Family History of Problems with Anesthesia: No History of Problems with Anesthesia: No NPO: Yes ASA Class: III Final Preanesthetic Review: No Changes in Pt Med Stat, Meds/Allgs Chart Reviewed, Consent Obtained/Reviewed and Anes Risks/Benef Reviewed Patient Risk: Intermediate Procedure Risk: Low Anesthetic Plan Anesthetic Plan: TIVA Disposition: Standard PACU
[2024-05-11 10:41] VITALS: BMI 21.6
[2024-05-11] MEDS: Lactated Ringers 1,000 ML 100 ML IVCONT (10:47)
[2024-05-11 10:54] VITALS: BP 155/82; PULSE 79; RESP 18; TEMP 36.7; O2SAT 97
--- NOTE | 2024-05-11 11:09 | P.HPSUR_ITS ---
Pre-Procedural Eval Section A - 24 Hr Update-Section A only Date of Service: 05/11/24 Section B - Complete if H&P > 30 days Chief Complaint: Personal history of other malignant neoplasm of Relevant Family History (Specify if Yes): No Relevant Social History: None Present Medications: see Short Stay Collaborative assessment Medical History: Significant History (Port-A-Cath in place Osteoarthritis of sac roiliac joint Rectal pain History of rectal cancer Rectal cancer metastasized to lung (~2020) Mass of left lung Intractable pain Personal history of nicotine dependence Perianal dermatitis Vitamin D deficiency ASCUS with positive high risk HPV cervical Gastr) History of Previous Operations: Relevant previous surgery/procedure and date(s) ( History of lung surgery (~2022) History of colonoscopy History of tubal ligation (~1999) History of hemorrhoidectomy (~2007) History of low anterior resection of rectum (~07/2021) History of reversal of ileostomy (~12/2021) S/P anal fissurectomy (~2008) History of bursectomy (~2013) History of nasa) Allergies: Allergies Allergy/AdvReac Type Severity Reaction Status Date / Time gabapentin AdvReac Unknown dizziness, Verified 04/13/24 10:45 lightheadedness ibuprofen AdvReac Unknown nausea and Verified 04/13/24 10:45 vomiting Review of Systems Sugical H&P ROS: Negative: Constitution, Cardiovascular, Respiratory, Neurological, Psychiatric, Hem-Onc, Allergic/Immunologic, Gastrointestinal, Genitourinary, Musculoskeletal, Integumentary, Endocrine and Eyes/Ears/Nose/Throat Exam Surgical H&P Exam: Normal: HEENT, Normal: Heart, Normal: Lungs, Normal: Extremities, Normal: Abdomen, Normal: Skin and Normal: Neurological Plan Diagnosis/Plan: Unchanged I have reviewed the history and physical and performed a pertinent physical examination on my patient. No changes have occurred unless specified. Time Spent With Patient Time: Total time managing care of this patient today ____ minutes.
--- NOTE | 2024-05-11 13:12 | P.OPN-COLO_ITS ---
Colonoscopy Operative Note Operative Note Date of Service: 05/11/24 Narrative: Operative Information Procedure Description: Colonoscopy Indication: Rectal bleeding and hx of rectal cancer Anesthesia: MAC COLONOSCOPY Instrument: Olympus variable stiffness pediatric scope 190L Colonoscopy Monitoring: Vital signs and clinical assessment, continuous EKG monitoring, Pulse oximetry, Carbon Dioxide monitoring and blood pressure monitoring were done throughout the procedure. Colon withdrawal time was 12 minutes. Procedure: The patient was placed in the left lateral decubitis position and pre-procedure medications were administered. After a digital rectal examination of the ano-rectum, the video colonoscope was inserted into the rectum and advanced through the colon to the cecum/TI. The colonoscope was slowly withdrawn in a retrograde panoramic fashion and the colon mucosa was carefully examined including a retroflexed view of the rectum. Findings and interventions are described below. Procedure Difficulty: easy Findings: Terminal Ileum-normal Cecum:normal Ascending Colon: normal Transverse Colon -normal Descending Colon:normal Sigmoid Colon: moderate diverticulosis Rectum: normal, tight unable to retroflex Anorectum - induration and irritation around the area, with some pallor of the skin and scarring Intervention: none Colon preparation: Schul[place] Bowel Preparation Scale Right colon; 1-2 Transverse colon: 2 Left colon; 2 (0 = Unprepared colon segment with mucosa not seen due to solid stool that cannot be cleared. 1 = Portion of mucosa of the colon segment seen, but other areas of the colon segment not well seen due to staining, residual stool and/or opaque liquid. 2 = Minor amount of residual staining, small fragments of stool and/or opaque liquid, but mucosa of colon segment seen well. 3 = Entire mucosa of colon segment seen well with no residual staining, small fragments of stool or opaque liquid) Impression and Post Procedure Diagnosis: diverticulosis colon polyps internal hemorrhoids Plan: High fiber diet leaflet Avoid straining at stool, epsom salts and sitz bath, anusol supps or cream Repeat Colonoscopy in 6-12 months due to fair prep in some areas on the right or earlier if clinically indicated f/u with Dr Frye in case needs any bx of tissue around the ano rectum, if nml then topical steroids maybe helpful, Above findings were reviewed with the patient and relevant handouts were provided if indicated.
[2024-05-11 13:15] VITALS: BP 118/79; PULSE 90; RESP 15; TEMP 37.2; O2SAT 99
[2024-05-11 13:30] VITALS: BP 140/85; PULSE 68; RESP 17; TEMP 36.7; O2SAT 100
== END 2024-05-11 13:49 | disposition home or self-care (01) ==
PROVIDERS: PCP Internal Medicine; Visit Provider Internal Medicine Gastroenterology
PROC: 0DJD8ZZ Inspection of Lower Intestinal Tract, Via Natural or Artificial Opening Endoscopic (ICD-10-PCS; CPT 45378; principal; 2024-05-11 12:20)
DX: K57.30 Diverticulosis of large intestine without perforation or abscess without bleeding (principal); K64.8 Other hemorrhoids; Z85.048 Personal history of other malignant neoplasm of rectum, rectosigmoid junction, and anus; Z87.891 Personal history of nicotine dependence
CPT/HCPCS: G0105; J2003; J2704

== ENCOUNTER → 2024-05-11 10:00 | Outpatient (BNV) | payer MEDICARE, MEDICAID, SELFPAY | PROVIDERS: PCP Internal Medicine; Visit Provider Internal Medicine Gastroenterology | DX: K62.5 Hemorrhage of anus and rectum (principal); Z85.048 Personal history of other malignant neoplasm of rectum, rectosigmoid junction, and anus; K57.30 Diverticulosis of large intestine without perforation or abscess without bleeding; K64.8 Other hemorrhoids | CPT/HCPCS: G0105 ==

== ENCOUNTER 2024-05-16 11:08 | Outpatient (AMB) | payer MEDICARE, MEDICAID, SELFPAY ==
[2024-05-16 11:15] VITALS: BP 134/72; PULSE 74; BMI 22.1
--- NOTE | 2024-05-16 11:15 | A.OFFVIS_ITS ---
Vital Signs 05/16/24 11:15 Height 5 ft 2 in Weight 121 lb BMI 22.1 BP 134/72 Blood Pressure Location Lt brachial Position Sitting Pulse 74 Intake Visit Reasons: follow up Colonoscopy Intake Note: This patient presents for hemorrhoids and rectal bleeding. Pt c/o; reports she had a colonoscopy about a week ago and referred her for hemorrhoids and intermittent rectal bleeding. Computer Architect Required: No Accompanied by: Other Relationship Allergies gabapentin Adverse Reaction (Unknown, Verified 05/16/24 11:21) dizziness, lightheadedness ibuprofen Adverse Reaction (Unknown, Verified 05/16/24 11:21) nausea and vomiting Medication List - Last Reconciled 05/22/24 by Max Frye MD cholecalciferol (vitamin D3) 50 mcg PO FR cyanocobalamin (vitamin B-12) 1,000 mcg PO DAILY folic acid 1 mg PO DAILY 90 days hydrocortisone 2.5% 1 appl DC BEDTIME PRN menthol-zinc oxide 0.44-20.6 % (Calmoseptine) 1 appl topical QID PRN omeprazole 20 mg PO DAILY@0630 ondansetron 8 mg PO Q8H oxycodone 10 mg PO Q8H PRN 10 days potassium chloride ER 20 mEq (2 x 10 mEq) PO DAILY HPI HPI follow up Colonoscopy: Details: She was referred to me because of a colonoscopy showing some hemorrhoids. She has a history of low rectal cancer had undergone very low anterior resection after neoadjuvant chemotherapy and radiation. This surgery was done in [place] She describes periodic passage of bright blood per rectum although she says that this is not new. She describes movements as per baseline with note of some periodic pain as well. She feels well overall. She has good oral intake. [facility]LY [facility], [facility] Medical History (Updated 05/22/24 @ 09:38 by Max Frye MD) External hemorrhoids with complication Port-A-Cath in place Osteoarthritis of sacroiliac joint Rectal pain History of rectal cancer Rectal cancer metastasized to lung (~2020) Mass of left lung Intractable pain Personal history of nicotine dependence Perianal dermatitis Vitamin D deficiency ASCUS with positive high risk HPV cervical Gastroesophageal reflux disease Tubular adenoma H. pylori infection Chronic pain syndrome Sacroiliitis Lumbar back pain with radiculopathy affecting left lower extremity Surgical History History of lung surgery (~2022) History of colonoscopy History of tubal ligation (~1999) History of hemorrhoidectomy (~2007) History of low anterior resection of rectum (~07/2021) History of reversal of ileostomy (~12/2021) S/P anal fissurectomy (~2008) History of bursectomy (~2013) History of nasal polypectomy History of esophagogastroduodenoscopy (EGD) Family History Mother Diabetes HTN (hypertension) Father Diabetes Heart attack Brother Diabetes Heart problem HTN (hypertension) Maternal Aunt Breast cancer Sister Uterus cancer Maternal Aunt Breast cancer Mother Lung cancer Other Mental health disorder Social History Household Members: Significant Other Housing: House Are you a primary healthcare applications analyst to a significant other at home: No Do you presently have visiting nurse or other home services: No Alcohol intake: never Patient Tobacco Use Status: Former Tobacco user e-Cigarette/Vaping Use: Never Used Second Hand Smoke Exposure: Yes service: No Current occupational status: unemployed and disabled Cognitive needs: No Hearing needs: No Vision needs: No Review of Systems Const Denies chills and Denies fever(s) Card Denies chest pain, Denies dyspnea and Denies dyspnea on exertion Resp Denies cough, Denies dyspnea and Denies dyspnea on exertion GI Reports hematochezia and Denies change in bowel habits Denies hematuria Musc Denies back pain and Denies limited range of motion Neuro Denies focal weakness and Denies convulsions Psych Denies depression and Denies mood swings Physical Exam Vital Signs: Last Vital Signs Pulse 74 05/16/24 11:15 BP 134/72 05/16/24 11:15 BMI result Body Mass Index 22.1 Const General: comfortable and no acute distress Resp Effort & Inspection: normal respiratory effort Cardio Rate: regular rate GI Other: Rectal exam - small external hemorrhoids, no perianal lesions, anoscopy done Palpation (GI): Soft to palpation, not firm and nontender Office Procedures Anoscopy She was in tamia-knife position. The anoscope was gently inserted. A full examination of the anal canal was done. She was able tolerate insertion of the anoscopy. The low anastomosis was seen. There was appears patent. There was note of some external hemorrhoids with no active bleeding. There were no new lesions. There was some erythema in the area of the anastomosis but no obvious ulcers, or lesion [id number] Assessment & Plan Assessment & Plan (1) External hemorrhoids with complication: Code(s): K64.4 - Residual hemorrhoidal skin tags Category: Medical Plan: She has external hemorrhoids occasional passage of bright blood per rectum. I would not recommend with hemorrhoidectomy especially in the background of a previous radiation her low rectal cancer. I have advised her on achieving good consistency of her stools with fiber supplementation She does have a history of metastatic disease to the lungs and had resection for this. She is being followed closely by Dr. Macdonald. I told her that I can see her in the office in a few months to be re-evaluated. Her CEA level is 2.4 and has been stable in January and February,. Coding Level of Care Code Est Pt Level 3 (06426) Diagnoses External hemorrhoids with complication K64.4 CPT Codes Details - CPT: 01396-[id number] ([id number])
== END 2024-05-16 11:53 | disposition home or self-care (01) ==
PROVIDERS: PCP Internal Medicine; Referring Provider Internal Medicine Gastroenterology; Visit Provider Surgery
DX: K64.9 Unspecified hemorrhoids (principal)
CPT/HCPCS: 46600; 99213

== ENCOUNTER → 2024-05-16 11:08 | Outpatient (BNVA) | payer MEDICARE, MEDICAID, SELFPAY | PROVIDERS: PCP Internal Medicine; Referring Provider Internal Medicine Gastroenterology; Visit Provider Surgery | DX: K64.4 Residual hemorrhoidal skin tags (principal) | CPT/HCPCS: 46600; 99212 ==

== ENCOUNTER 2024-07-05 09:54 | Outpatient (AMB) | payer MEDICARE, MEDICAID, SELFPAY ==
--- NOTE | 2024-07-05 10:02 | MHC.OFFVIS ---
Vital Signs 07/05/24 10:10 Height 5 ft 2 in Weight 121 lb BMI 22.1 Intake Visit Reasons: New Prob - LT hip pain Intake Note: Amanda is a 53 year old female who presents today for an evaluation of left hip pain. Patient reports her pain has been present since about 2019. She seen in the past at pain management for stimulation in her back however she d/c care during her cancer tx. States since last she has been experiencing intermittent burning, sharp shooting pains at the lateral aspect of hip that radiates down her leg. Her pain comes with any prolong walking or standing. She has to stop what she is doing and elevate her leg as well as heat and lidocaine cream. She mentions having a fall a couple of times. Finds relief with prescribed oxycodone. Allergies gabapentin Adverse Reaction (Unknown, Verified 07/05/24 10:02) dizziness, lightheadedness ibuprofen Adverse Reaction (Unknown, Verified 07/05/24 10:02) nausea and vomiting Medication List - Last Reconciled 07/05/24 by Stephanie Orantes PA-C cholecalciferol (vitamin D3) 50 mcg PO FR cyanocobalamin (vitamin B-12) 1,000 mcg PO DAILY folic acid 1 mg PO DAILY 90 days hydrocortisone 2.5% 1 appl [place] BEDTIME PRN megestrol 800 mg (20 mL) PO DAILY omeprazole 20 mg PO DAILY@0630 oxycodone 10 mg PO Q8H PRN 10 days potassium chloride ER 20 mEq (2 x 10 mEq) PO DAILY HPI HPI New Prob - LT hip pain: Details: 53-year-old female presents to the office today for left hip pain. She states the pain is located along the lateral aspect of her hip which goes down her leg. She denies groin pain. Denies low back pain. She states she did have the pain prior to receiving her chemotherapy treatments. She does have pain when she sleeps on the left side. She has had no treatment to date. COUNT INCLUDES THE [facility] Medical History (Updated 07/05/24 @ 10:19 by Stephanie Orantes PA-C) External hemorrhoids with complication Port-A-Cath in place Osteoarthritis of sacroiliac joint Rectal pain History of rectal cancer Rectal cancer metastasized to lung (~2020) Mass of left lung Intractable pain Personal history of nicotine dependence Perianal dermatitis Vitamin D deficiency ASCUS with positive high risk HPV cervical Gastroesophageal reflux disease Tubular adenoma H. pylori infection Chronic pain syndrome Sacroiliitis Lumbar back pain with radiculopathy affecting left lower extremity Surgical History History of lung surgery (~2022) History of colonoscopy History of tubal ligation (~1999) History of hemorrhoidectomy (~2007) History of low anterior resection of rectum (~07/2021) History of reversal of ileostomy (~12/2021) S/P anal fissurectomy (~2008) History of bursectomy (~2013) History of nasal polypectomy History of esophagogastroduodenoscopy (EGD) Family History Mother Diabetes HTN (hypertension) Father Diabetes Heart attack Brother Diabetes Heart problem HTN (hypertension) Maternal Aunt Breast cancer Sister Uterus cancer Maternal Aunt Breast cancer Mother Lung cancer Other Mental health disorder Social History Household Members: Significant Other Housing: House Are you a primary complex care nurse practitioner to a significant other at home: No Do you presently have visiting nurse or other home services: No Alcohol intake: never Patient Tobacco Use Status: Former Tobacco user e-Cigarette/Vaping Use: Never Used Second Hand Smoke Exposure: Yes service: No Current occupational status: unemployed and disabled Cognitive needs: No Hearing needs: No Vision needs: No Review of Systems Const All systems reviewed & are unremarkable except as noted in HPI and below Physical Exam Vital Signs: BMI result Body Mass Index 22.1 Const General: cooperative and no acute distress Orientation/consciousness: patient oriented x3 Resp Effort & Inspection: normal respiratory effort and able to speak in complete sentences Cardio Peripheral pulses: Peripheral pulses 2+ throughout Neuro General: patient oriented x3 Extrem Other: Left hip normal to inspection. No pain with ROM of the hip. Pain along the greater trochanter. No pain with hip flexion or abduction.There is no tenderness along the si joint, Negative SLR. NVI. Results Reviewed Results Reviewed: X-rays of the left hip with pelvis obtained in the office today and reviewed by me show no acute fractures or dislocations. Joint space well preserved. Assessment & Plan Assessment & Plan (1) Trochanteric bursitis, left hip: Code(s): Todd70.62 - Trochanteric bursitis, left hip Category: Medical Plan: We discussed options today which include physical therapy and anti-inflammatory use. An order for physical therapy has been placed in his prescription for Celebrex has been sent to the pharmacy. I encouraged her to take 2 tablets twice a day for 2 weeks to see if this helps with her inflammation. She should increase activities as tolerated and if symptoms persist or worsen she can contact our office for a cortisone injection otherwise follow-up as needed. Orders: Orders XR hip LT min 2V w/wo pel Today M25.552 - Pain in left hip PT Evaluation and Treatment Today M70.62 - Trochanteric bursitis, left hip Medications: New celecoxib (Celebrex) 200 mg PO BID 30 days 60 caps 3RF Coding Level of Care Code New Pt Level 3 (40212) Complex EM visit Add On G2211 Diagnoses Trochanteric bursitis, left hip M70.62
[2024-07-05 10:10] VITALS: BMI 22.1
== END 2024-07-05 10:25 | disposition home or self-care (01) ==
PROVIDERS: PCP Internal Medicine; Visit Provider Physician Assistant
DX: M70.62 Trochanteric bursitis, left hip (principal)
CPT/HCPCS: 99213; G2211

== ENCOUNTER 2024-07-05 11:38 | Outpatient (REF) | payer MEDICARE, MEDICAID, SELFPAY ==
--- NOTE | ~2024-07-05 | XR_ITS ---
EXAMINATION: XR HIP 2 OR MORE VIEWS LEFT WITH PELVIS HISTORY: M25.552 - Pain in left hip COMPARISON: Comparison is made with the prior examination dated 12/01/2023. FINDINGS: A single AP view of the pelvis and two views of the left hip are submitted. Again seen is a bone island in the left femoral neck. There is no fracture or dislocation. The joint space is maintained. The soft tissues are unremarkable. XR/XR hip LT min 2V IMPRESSION: Unremarkable examination of the left hip. Electronically signed by: Chilango Mancia MD 07/10/2024 02:21 PM EST
== END 2024-07-05 11:39 | disposition home or self-care (01) ==
LOC: HO.HOSX 11:38
PROVIDERS: Visit Provider Physician Assistant
DX: M25.552 Pain in left hip (principal); M70.62 Trochanteric bursitis, left hip
CPT/HCPCS: 73502; 99212

== ENCOUNTER 2024-07-26 08:40 | Emergency (ER) | payer MEDICARE, MEDICAID, SELFPAY ==
--- NOTE | ~2024-07-26 | XR_ITS ---
EXAMINATION: XR FOOT, LEFT CLINICAL INFORMATION: fall/pain/swelling COMPARISON: 07/22/2023. TECHNIQUE: AP, lateral, and oblique views of the left foot. FINDINGS: There is a spiral fracture of the mid fifth metatarsal. There is minimal superior and medial displacement of the distal fragment without override or angulation. No additional fracture evident. No malalignment or dislocation. Midfoot and hindfoot appear normal with preserved plantar arch. There is lateral soft tissue swelling. XR/XR foot LT min 3V IMPRESSION: 1. Spiral fracture mid fifth metatarsal with minimal displacement. Electronically signed by: Reyes Lam MD 07/26/2024 09:37 AM [facility] [place]
[2024-07-26 08:47] VITALS: BP 145/82; PULSE 98; RESP 18; TEMP 36.4; O2SAT 100; BMI 22.3
--- NOTE | 2024-07-26 10:56 | ED_ITS ---
HPI - Fall General Chief Complaint: Fall Stated Complaint: fall Time Seen by Provider: 07/26/24 10:53 Source: patient Mode of arrival: ambulatory Limitations: no limitations History of Present Illness ED Provider: VALENTÍN REEVES PA-C HPI Narrative: 53 year old female with pmhx significant for h. pylori, sacroilitis, rectal cancer with mets to lungs (last chemo 06/2023) presents to the ED today with lateral left foot pain s/p trip and fall yesterday while waking her brother's dog dog. Denies head strike or LOC. Not on AC. She reports immediate pain to outer aspect of her left foot. She has been able to ambulate with discomfort. Endorses associated numbness to the foot however admits this is typical for her neuropathy. She has been taking a left over prescription of oxycodone at home and icing the area with some improvement in pain. Denies headache, dizziness, vision changes, back or neck pain, ankle/knee/hip pain. Related Data Home Medications ?Medication ?Instructions ?Recorded ?Confirmed cyanocobalamin (vitamin B-12) 1,000 mcg PO DAILY 01/10/22 07/05/24 1,000 mcg tablet cholecalciferol (vitamin D3) 50 50 mcg PO FR 10/29/22 07/05/24 mcg (2,000 unit) capsule Previous Rx's ?Medication ?Instructions ?Recorded omeprazole 20 mg capsule,delayed 20 mg PO DAILY@0630 #30 caps 09/20/23 release potassium chloride 10 mEq 20 meq (2 x 10 mEq) PO DAILY #30 12/22/23 tablet,extended release tabs folic acid 1 mg tablet 1 mg PO DAILY 90 days #90 tabs 05/04/24 hydrocortisone 2.5 % topical cream 1 appl MD BEDTIME PRN hemorrhoids 05/11/24 with perineal applicator #30 grams megestrol 800 mg/20 mL (20 mL) 800 mg (20 mL) PO DAILY #300 mL 06/01/24 oral suspension celecoxib 200 mg capsule (Celebrex) 200 mg PO BID 30 days #60 caps 07/05/24 oxycodone 10 mg tablet 10 mg PO Q8H PRN Breakthrough 07/19/24 Pain, Severe 10 days #30 tabs Allergies Allergy/AdvReac Type Severity Reaction Status Date / Time gabapentin AdvReac Unknown dizziness, Verified 07/26/24 08:49 lightheadedness ibuprofen AdvReac Unknown nausea and Verified 07/26/24 08:49 vomiting Review of Systems Review of Systems: Constitutional: No fever, chills, fatigue, night sweats, weight changes ENT/Mouth: No ear pain, hearing loss, nasal congestion, sinus pain, rhinorrhea, sore throat Eyes: No eye pain, swelling, redness, vision changes, discharge Cardio: No chest pain, palpitations, KAUR, orthopnea, peripheral edema Pulm: No SOB, cough, sputum, wheezing, dyspnea, hemoptysis GI: No nausea, vomiting, hematemesis, abdominal pain, diarrhea, constipation, he matochezia, melena : No irregular bleeding, dysuria, frequency, urgency, hesitancy, hematuria, flank pain, urinary flow changes, urinary incontinence or retention MSK: No back pain, neck pain, joint pain, myalgias, +left foot pain Skin: No lesions, rashes Neuro: No weakness, numbness, paresthesias, LOC, dizziness, headache Psych: No anxiety/panic, depression, SI/HI, AH/VH All other systems reviewed and are negative. [facility] Past Medical History Attestation statement: The following information was validated with the patient. Source: old records reviewed and nursing notes reviewed Medical History External hemorrhoids with complication Port-A-Cath in place Osteoarthritis of sacroiliac joint Rectal pain History of rectal cancer Rectal cancer metastasized to lung (~2020) Mass of left lung Intractable pain Personal history of nicotine dependence Perianal dermatitis Vitamin D deficiency ASCUS with positive high risk HPV cervical Gastroesophageal reflux disease Tubular adenoma H. pylori infection Chronic pain syndrome Sacroiliitis Lumbar back pain with radiculopathy affecting left lower extremity Surgical History History of lung surgery (~2022) History of colonoscopy History of tubal ligation (~1999) History of hemorrhoidectomy (~2007) History of low anterior resection of rectum (~07/2021) History of reversal of ileostomy (~12/2021) S/P anal fissurectomy (~2008) History of bursectomy (~2013) History of nasal polypectomy History of esophagogastroduodenoscopy (EGD) Family History Family History Mother Diabetes HTN (hypertension) Father Diabetes Heart attack Brother Diabetes Heart problem HTN (hypertension) Maternal Aunt Breast cancer Sister Uterus cancer Maternal Aunt Breast cancer Mother Lung cancer Other Mental health disorder Social History Social History Household Members: Significant Other Housing: House Are you a primary care advocate to a significant other at home: No Do you presently have visiting nurse or other home services: No Alcohol intake: never Patient Tobacco Use Status: Former Tobacco user Smoked in Last 30 Days: No e-Cigarette/Vaping Use: Never Used Second Hand Smoke Exposure: Yes Use of substances other than those prescribed or required for medical reasons: No Advance Directives: No Advance Directives Information Provided: No Patient : No service: No Current occupational status: unemployed and disabled Cognitive needs: No Hearing needs: No Vision needs: No Physical Exam Vital Signs: Vital Signs: Last Vital Signs Temp 97.6 F 07/26/24 08:47 Pulse 98 07/26/24 08:47 Resp 18 07/26/24 08:47 BP 145/82 H 07/26/24 08:47 Pulse Ox 100 07/26/24 08:47 O2 Del Method Room Air 07/26/24 08:47 BMI result Body Mass Index 22.3 hypertensive General: Well appearing, in no acute distress. Skin: Warm, dry, intact. No rashes or lesions. Head: Normocephalic, atraumatic. EENT: Hearing is intact b/l. Conjunctiva clear. PERRLA. EOM intact. Moist mucous membranes.? Neck: Supple without LAD Cardiac: Chest wall symmetric. RRR Lungs: Normal respiratory effort without accessory muscle use. CTA bilaterally Ext: +minimal swelling/ ecchymosis noted to dorsal/ lateral aspect of mid left foot. no open wounds. able to move all toes w/ discomfort. rom intact to left ankle. ttp w/o palpable deformity or crepitus. the foot is warm with 2+DP pulses. sensation intact. Neuro: AOx3. Normal speech. ambulating w/ slight limping gait Psych: Appropriate mood and affect. Responds appropriately to questions. Course Course Course Narrative: XR left foot showing spiral fracture of the left 5th metatarsal, consistent with physical exam findings. She was neurovascularly intact. I do not have concern for compartment syndrome or neurovascular compromise. I discussed options with patient including post-op shoe vs boot vs posterior short splint. I stressed the importance of staying non-weight bearing w/ crutches. We used shared decision making to determine post op shoe w/ crutches will be the best option. She currently follows with [facility] for chronic hip pain and had an appointment with them last week. I advised patient to contact their office for follow up regarding foot fracture today and she verbalizes understanding. Patient to be non-weight bearing until follow up. Patient states she is prescribed oxycodone 10mg as needed for pain by her primary care provider. she was given a dose in ED today. I have advised to continue taking oxycodone for pain at home with addition of tylenol. educated on RICE therapy. Patient has remained stable throughout ED visit today. Discussed worrisome signs and symptoms and when to return to the ED. All questions answered at this time. Patient is agreeable with disposition and stable for discharge. Medications Administered Discontinued Medications Generic Name Dose Route Start Last Admin Trade Name Freq PRN Reason Stop Dose Admin Oxycodone HCl 5 mg 07/26/24 11:18 07/26/24 11:24 Oxycodone Hcl Immed Release 5 Mg Tablet PO 07/26/24 11:19 5 mg ONCE ONE Administration Procedures Orthopedic Splinting/Casting Injury #1: Side: left Lower Extremity Injury Location: foot Lower Extremity Immobilizer: post-op shoe Other Orthopedic Equipment: crutches Medical Decision Making Medical Decision Making MDM Narrative: 53 year old female with pmhx significant for h. pylori, sacroilitis, rectal cancer with mets to lungs (last chemo 06/2023) presents to the ED today with lateral left foot pain s/p trip and fall yesterday while waking her brother's dog dog. Vital signs notable for hypertension, otherwise wnl. she is nontoxic appearing and in NAD. ambulating with limping gait. On exam, there is minimal swelling/ ecchymosis noted to dorsal/ lateral aspect of mid left foot. no open wounds. rom intact to left ankle. able to move all toes w/ discomfort. ttp w/o palpable deformity or crepitus. the foot is warm with 2+DP pulses. sensation intact. Differential diagnosis includes foot contusion, foot fracture, msk sprain/ strain. Unlikely NV compromise, threat to limb, compartment syndrome. Plan for xrs, pain control, and re-evaluation. Differential Diagnosis Differential Diagnoses: The differential diagnosis associated with the presentation includes as above. Admission/Observation not indicated. Independent Interpretation I performed an independent interpretation of an: Plain X-Ray Interpretation: XR left foot w/ spiral fractyre to 5th metatarsal Radiology Impression Discussion of test interpretation with radiology: I have reviewed the radiologist's reading. Radiologist Impression: EXAMINATION: XR FOOT, LEFT CLINICAL INFORMATION: fall/pain/swelling COMPARISON: 07/22/2023. TECHNIQUE: AP, lateral, and oblique views of the left foot. FINDINGS: There is a spiral fracture of the mid fifth metatarsal. There is minimal superior and medial displacement of the distal fragment without override or angulation. No additional fracture evident. No malalignment or dislocation. Midfoot and hindfoot appear normal with preserved plantar arch. There is lateral soft tissue swelling. XR/XR foot LT min 3V IMPRESSION: 1. Spiral fracture mid fifth metatarsal with minimal displacement. Electronically signed by: Reyes Lam MD 07/26/2024 09:37 AM [facility] [place] External Record Review External record reviewed: Inpatient record Prescription Management I considered prescription management with: Pain Medication Social Determinants Patient?s care significantly limited by Social Determinants of Health including: Other Social Determinant of Health Critical Care Time Critical Care Time Critical Care Time: No Discharge Plan Discharge Clinical Impression: Fracture of fifth metatarsal bone Qualifiers: Encounter type: initial encounter Fracture type: closed Fracture alignment: displaced Laterality: left Qualified Code(s): S92.352A - Displaced fracture of fifth metatarsal bone, left foot, initial encounter for closed fracture Patient Disposition: Home, Self-Care Instructions: Crutch Instructions (ED), Foot Fracture in Adults (ED), Post Surgical Shoe (ED) Additional Instructions: You have been evaluated in the Emergency Department today for your left foot p ain. You were evaluation shows a fracture of your 5th metatarsal bone (outer aspect of your foot) After discussion, your foot was placed in a postop shoe. Do not bear weight on your left foot until you follow up with the orthopedic doctor. You may take the postop shoe off to bathe however do not step on your foot. We have provided you with crutches to help you ambulate. Utilize rice therapy - rest, ice, compress and elevate Continue taking oxycodone at home for pain. You were given a dose of this in ED today. You may also take Tylenol every 4-6 hours. Please follow-up with an orthopedic surgeon in 1 week. You have been provided with a referral. Call them to make an appointment, they will not call you. Return to the Emergency Department if you experience worsening pain, numbness, tingling, change of color in your toes, or any other concerning symptoms. Prescriptions: No Action omeprazole 20 mg capsule,delayed release(DR/EC) 20 mg PO DAILY@0630 Qty: 30 3RF potassium chloride 10 mEq tablet extended release 20 meq PO DAILY Qty: 30 5RF folic acid 1 mg tablet 1 mg PO DAILY 90 Days Qty: 90 3RF oxycodone 10 mg tablet 10 mg PO Q8H PRN (Reason: Breakthrough Pain, Severe) 10 Days Qty: 30 0RF Rx Instructions: Partial Fill upon patient request; refill Rx only when due megestrol 800 mg/20 mL (20 mL) Suspension 800 mg PO DAILY Qty: 300 2RF cyanocobalamin (vitamin B-12) 1,000 mcg Tablet 1,000 mcg PO DAILY hydrocortisone 2.5 % cream with perineal applicator 1 appl MD BEDTIME PRN (Reason: hemorrhoids) Qty: 30 0RF cholecalciferol (vitamin D3) 50 mcg (2,000 unit) capsule 50 mcg PO FR celecoxib [Celebrex] 200 mg capsule 200 mg PO BID 30 Days Qty: 60 3RF Referrals: [facility] [Provider Group] - 3 days (Spiral fracture 5th metatarsal) Ky Lin MD [Primary Care Provider] - Print Language: Moldovan
[2024-07-26] MEDS: oxyCODONE HCl Immed Release 5 MG TABLET PO (11:24)
[2024-07-26 11:57] VITALS: BP 138/76; PULSE 72; RESP 16; RESP 18; TEMP 36.7; O2SAT 98
== END 2024-07-26 11:58 | disposition home or self-care (01) ==
PROVIDERS: Emergency Provider Emergency Medicine; PCP Internal Medicine
DX: S92.352A Displaced fracture of fifth metatarsal bone, left foot, initial encounter for closed fracture (principal); W18.39XA Other fall on same level, initial encounter; M79.672 Pain in left foot; Y93.K1 Activity, walking an animal; Y92.480 Sidewalk as the place of occurrence of the external cause; Y99.9 Unspecified external cause status
CPT/HCPCS: 73630; 99283; 99285

== ENCOUNTER → 2024-07-26 09:25 | Outpatient (BNV) | payer MEDICARE, MEDICAID, SELFPAY | PROVIDERS: PCP Internal Medicine; Visit Provider Radiology Diagnostic Radiology | DX: S92.352A Displaced fracture of fifth metatarsal bone, left foot, initial encounter for closed fracture (principal) | CPT/HCPCS: 73630 ==

== ENCOUNTER 2024-07-27 09:43 | Outpatient (AMB) | payer MEDICARE, MEDICAID, SELFPAY ==
[2024-07-27 10:04] VITALS: BP 132/80; PULSE 96; O2SAT 99
--- NOTE | 2024-07-27 10:04 | MHC.PC.OV ---
Vital Signs 07/27/24 10:04 Height 5 ft 1 in BP 132/80 Blood Pressure Location Lt brachial Position Sitting Pulse 96 Pulse Source Pulse Oximeter Pulse Oximetry (%) 99 Oxygen Delivery Method Room Air Intake Visit Reasons: 3 Months f/u Pharmacy Director Required: No Accompanied by: Self / Same As Patient Allergies gabapentin Adverse Reaction (Unknown, Verified 07/27/24 10:44) dizziness, lightheadedness ibuprofen Adverse Reaction (Unknown, Verified 07/27/24 10:44) nausea and vomiting Medication List - Last Reconciled 07/27/24 by Ky Lin MD celecoxib (Celebrex) 200 mg PO BID 30 days cholecalciferol (vitamin D3) 50 mcg PO FR cyanocobalamin (vitamin B-12) 1,000 mcg PO DAILY folic acid 1 mg PO DAILY 90 days hydrocortisone 2.5% 1 appl LA BEDTIME PRN megestrol 800 mg (20 mL) PO DAILY naproxen 500 mg PO Q12H PRN omeprazole 20 mg PO DAILY@0630 oxycodone 10 mg PO Q8H PRN 10 days potassium chloride ER 20 mEq (2 x 10 mEq) PO DAILY Tobacco use date assessed: 07/27/24 Dental Screening Dental Screen Date: 07/27/24 HPI 3 Months f/u HPI Details Patient comes in today for her follow up visit She went to the ER yesterday after she tripped and fell while walking her brother's dog Relates that she was experiencing increased pain over the lateral side of her left foot after her fall X-rays done at the ER revealed (+) spiral fracture of the mid fifth metatarsal with minimal displacement Her left foot was placed in an orthopedic boot to immobilize it and she was provided with crutches to help keep her weight off her left foot as much as possible She has been referred to orthopedics for this and she is currently awaiting a call to schedule her appointment States that other than her left foot pain, she feels okay at present She continues to experience chronic pain in her left hip as well as inside her pelvic area and over her lower back and still requires opioids to help manage her chronic pain - will need her Oxycodone Rx refilled by this weekend She also continues to experience frequent numbness and tingling sensation in her extremities, which are likely due to neuropathy as a result of her previous chemotherapy Patient completed her chemotherapy for metastatic rectal cancer into her lungs back in June 2023 - she received her last treatment (6th cycle) of FOLFIRI with bevacizumab on 07/05/2023 (started Tx on 02/09/2023) She subsequently reportedly did not wish to continue further chemotherapy and did not return to oncology for follow up until 10/31/[address] and bone scan have so far shown no evidence of recurrence of her cancer (no evidence of pulmonary or liver metastases) but (+) area of wall thickening in the rectum with a segment of narrowing and sigmoidoscopy was recommended Colonoscopy was done in April 2024 that came out normal except for some induration and irritation around the area of the anorectum with some pallor of the skin and scarring She still reports (+) fatigue often but denies any headaches or dizziness Denies any chest pains, no increased SOB No nausea/vomiting, no abdominal pain No change in bowel habits noted She also needs her Omeprazole Rx refilled today PFSH Medical History External hemorrhoids with complication Port-A-Cath in place Osteoarthritis of sacroiliac joint Rectal pain History of rectal cancer Rectal cancer metastasized to lung (~2020) Mass of left lung Intractable pain Personal history of nicotine dependence Perianal dermatitis Vitamin D deficiency ASCUS with positive high risk HPV cervical Gastroesophageal reflux disease Tubular adenoma H. pylori infection Chronic pain syndrome Sacroiliitis Lumbar back pain with radiculopathy affecting left lower extremity Surgical History History of lung surgery (~2022) History of colonoscopy History of tubal ligation (~1999) History of hemorrhoidectomy (~2007) History of low anterior resection of rectum (~07/2021) History of reversal of ileostomy (~12/2021) S/P anal fissurectomy (~2008) History of bursectomy (~2013) History of nasal polypectomy History of esophagogastroduodenoscopy (EGD) Family History Mother Diabetes HTN (hypertension) Father Diabetes Heart attack Brother Diabetes Heart problem HTN (hypertension) Maternal Aunt Breast cancer Sister Uterus cancer Maternal Aunt Breast cancer Mother Lung cancer Other Mental health disorder Social History Household Members: Significant Other Housing: House Are you a primary critical care unit nurse to a significant other at home: No Do you presently have visiting nurse or other home services: No Alcohol intake: never Patient Tobacco Use Status: Former Tobacco user e-Cigarette/Vaping Use: Never Used Second Hand Smoke Exposure: Yes service: No Current occupational status: unemployed and disabled Cognitive needs: No Hearing needs: No Vision needs: No Questionnaire PHQ-9 Over the last 2 weeks, how often have you been bothered by any of the following problems? 1. Little interest or pleasure in doing things: several days 2. Feeling down, depressed, or hopeless: several days 3. Trouble falling or staying asleep, or sleeping too much: several days 4. Feeling tired or having little energy: several days 5. Poor appetite or overeating: several days 6. Feeling bad about yourself - or that you are a failure or have let yourself or your family down: several days 7. Trouble concentrating on things, such as reading the newspaper or watching television: several days 8. Moving or speaking so slowly that other people could have noticed. Or the opposite - being so fidgety or restless that you have been moving around a lot more than usual: several days 9. Thoughts that you would be better off or of hurting yourself in some way: not at all Total score: 8 Depression Screening Interpretation: Positive Depression Screening Follow-up: Existing condition and Follow-up Visit Requested Depression Screening Done: Yes 18602 - PHQ-9 Billing: Yes Source: Developed by Drs. Chilango Rios, Ana Cash, Ziggy Rios and colleagues, with an educational eleuterio from [employer]. Thrive Questionnaire Date Thrive assessed: 07/27/24 I am a: Patient What is your living situation today?: I have a steady place to live Within the past 12 months, did the food you bought not last and you didn't have the money to get more?: Never true Within the past 12 months, did you worry whether your food would run out before you got money to buy more?: Never true Do you have trouble paying for medicines?: No Do you have trouble getting transportation to medical appointments?: No Do you have trouble paying your heating and electricity bill?: No Do you have trouble taking care of your child, family member or friend?: No Do you have trouble with day-to-day activities such as bathing, preparing meals, shopping, managing finances, etc.?: No Are you currently unemployed and looking for a job?: Yes Are you interested in more education?: No Please select the resources that you would like help with: None Currently or been in a relationship where the following occur: No concerns reported THRIVE Score: 0 AUDIT C Alcohol Use Questionnaire (AUDIT-C) 1. How often do you have a drink containing alcohol?: Never 3. How often do you have six or more drinks on one occasion?: Never Total Score: 0 Score Reviewed/Action Taken: Yes TACHO-7 AMB Questionnaire TACHO-7 Date TACHO - 7 assessed: 07/27/24 Feeling nervous, anxious, or on edge: 0 = Not at all Not being able to stop or control worryin = Not at all Worrying too much about different things: 0 = Not at all Trouble relaxin = Not at all Being so restless that it is hard to sit still: 0 = Not at all Becoming easily annoyed or irritable: 0 = Not at all Feeling afraid as if something awful might happen: 0 = Not at all Total TACHO-7 score (0-4 normal; 5-9 mild; 10-14 moderate; 15-21 severe): 0 Source: Developed by Drs. Chilango Rios, Ana Cash, Ziggy Rios and colleagues, with an educational eleuterio from [employer]. Review of Systems Const Denies chills, Reports fatigue, Denies fever(s) and Denies headache(s) ENT Denies dysphagia, Denies dizziness, Denies otalgia, Denies headache(s), Denies neck pain, Denies odynophagia and Denies sore throat Card Denies chest pain, Denies palpitations and Denies dyspnea Resp Denies chest congestion, Denies cough and Denies dyspnea GI Details: (+) recurrent rectal burning sensation; (+) recurrent perirectal pain over the past few months Denies abdominal pain, Denies constipation, Denies dysphagia, Denies heartburn, Denies diarrhea, Denies nausea, Denies odynophagia and Denies vomiting Details: c/o deep pelvic pain - S/P low anterior resection of rectum in 07/2021 Denies difficulty voiding, Denies nocturia, Denies dysuria and Denies urinary urgency Musc Reports back pain (over the lower back - chronic), Reports arthralgias (left hip - chronic; left foot (from her fall yesterday)), Denies neck pain, Reports numbness (in the extremities) and Reports tingling (in the extremities) Skin/Breast Denies rash Neuro Denies dizziness, Denies headache(s), Reports numbness (in the extremities) and Reports tingling (in the extremities) Endo Reports fatigue and Denies palpitations Physical exam (Primary Care) Vital Signs: Last Vital Signs Pulse 96 07/27/24 10:04 BP 132/80 07/27/24 10:04 Pulse Ox 99 07/27/24 10:04 Oxygen Delivery Method Room Air 07/27/24 10:04 Tobacco/Smoking Status: Tobacco use Status Tobacco use date assessed 07/27/24 07/27/24 10:11 Patient Tobacco Use Status Former Tobacco user 07/27/24 10:11 e-Cigarette/Vaping Use Never Used 07/27/24 10:11 PHQ-9: PHQ-9 Score PHQ-9: Total score 8 07/27/24 10:11 Depression Screening Interpretation: Positive Depression Screening Follow-up: Existing condition and Follow-up Visit Requested Thrive Assessment: Date of Thrive Assessment Date Thrive assessed 07/27/24 07/27/24 10:11 Currently or been in a relationship where the following occur: No concerns reported Const General: no acute distress and alert HENMT Throat: Yes posterior oropharynx normal and Yes tonsils normal (no TP congestion) Neck Neck: Yes supple and No lymphadenopathy Thyroid: Thyroid normal Resp Auscultation: clear to auscultation bilaterally, no rales and no wheezes Cardio Rate: regular rate Rhythm: regular rhythm Heart sounds: no murmurs GI Palpation (GI): Soft to palpation and nontender Auscultation: normal bowel sounds General: Yes no CVA tenderness Back/Spine/Pelvis Back: no CVA tenderness Thoracic/Lumbar Spine: lumbar spinal tenderness Skin Rashes: no rashes Extrem General: Yes no clubbing, cyanosis or edema Left lower extremity: foot (L foot is currently in an orthopedic boot) Details: tenderness Location: of the lateral foot Location: at the base of the 5th metatarsal Results Reviewed Results Reviewed: Laboratory Tests 05/30/23 06/01/24 08:30 13:50 WBC 5.4 Hgb 12.3 Hct 36.1 L Plt Count 255 Sodium 140 Potassium 4.3 Creatinine 0.76 Estimated GFR > 60 Random Glucose 119 H Calcium 9.6 Magnesium 1.8 AST 39 H ALT 27 Albumin 4.3 Carcinoembryonic Ag < 1.73 Coding Level of Care Code Est Pt Level 4 (93077) Diagnoses Closed nondisplaced fracture of fifth metatarsal bone of left foot, initial encounter S92.355A Encounter type: initial encounter Fracture type: closed Rectal pain K62.89 Osteoarthritis of sacroiliac joint M46.1 Left hip pain M25.552 Lumbar back pain with radiculopathy affecting left lower extremity M54.16 Adenocarcinoma of rectum C20 Rectal cancer metastasized to lung C20; C78.00 Gastroesophageal reflux disease, unspecified whether esophagitis present K21.9 Esophagitis presence: esophagitis presence not specified Vitamin D deficiency E55.9 Anxiety F41.9 Additional Codes PHQ-9 - 70555 - PHQ-9 Billing: Yes ([id number]) Assessment & Plan Assessment & Plan (1) Nondisplaced fracture of fifth left metatarsal bone: Code(s): S92.355A - Nondisplaced fracture of fifth metatarsal bone, left foot, initial encounter for closed fracture Category: Medical Qualifiers: Encounter type: initial encounter Fracture type: closed Qualified Code(s): S92.355A - Nondisplaced fracture of fifth metatarsal bone, left foot, initial encounter for closed fracture Plan: She reportedly tripped and fell while walking her brother's dog yesterday Left foot x-rays done at the ER revealed (+) spiral fracture of the mid fifth metatarsal with minimal displacement Her left foot is currently immobilized in an orthopedic boot and she has been advised to keep it on at all times and take if off only when she is going to bed at night Have advised patient that as her fracture is non-displaced, she will likely NOT require any surgery and can just continue with conservative management; will at least require repeat x-rays in about a month for follow up Will refer her to orthopedics [facility] for further evaluation and management but have advised patient that they will likely give her the same recommendations we have given her and advise no surgery is needed in her case (2) Rectal pain: Code(s): K62.89 - Other specified diseases of anus and rectum Category: Medical Plan: She was reportedly not able to tolerate anoscopic examination in the office and ended up getting a repeat colonoscopy done in April 2024, which came out normal except for some induration and irritation around the area of the anorectum with some pallor of the skin and scarring, likely a result of her previous radiation Tx (3) Osteoarthritis of sacroiliac joint: Code(s): M46.1 - Sacroiliitis, not elsewhere classified Category: Medical Plan: X-rays of the SI joints done back in November 2023 revealed (+) moderate degenerative changes bilateral sacroiliac joints States that her current Rx are helping with the pain for now Have advised her of the option of going back to pain management for this later on (4) Left hip pain: Code(s): M25.552 - Pain in left hip Category: Medical Plan: Left hip x-rays done back in November 2023 revealed again a sclerotic focus overlying the left femoral neck possibly representing a bone lesion such as a bone island versus soft tissue calcification Have recommended that she see orthopedics for this - referral done together with her left metatarsal fracture (5) Lumbar back pain with radiculopathy affecting left lower extremity: Code(s): M54.16 - Radiculopathy, lumbar region Category: Medical Plan: Reinforced activity and weight-lifting restrictions She was seeing Pain Management for follow-up previously and was considering other treatment options, including intrathecal delivery system, but these were all put on hold when she was diagnosed with rectal cancer a couple of years ago She had an appointment with Dr. Aguilar on 06/29/22 but she reportedly overslept and missed her appt then and has not been back to see pain management since Continue Oxycodone 10 mg Q 8 hours PRN for now - Rx refilled today Have advised her of the option of referring her back to pain management once her cancer is completely cleared up and she is a little further out from her overall diagnosis and treatment (6) Adenocarcinoma of rectum: Onset Date: ~2020 Comment: (Invasive Adenocarcinoma - s/p resection 07/31/21, radiation and Xeloda - mets to lung s/p LLL wedge 10/2022) Code(s): C20 - Malignant neoplasm of rectum Category: Medical Plan: S/P surgical (low anterior) resection and loop ileostomy by Dr. Hackett at [facility] in [place] on 07/31/2021; she later underwent ileostomy reversal on 01/08/2022 also at [facility] She completed radiation therapy and Xeloda in 11/2021; she was then treated with modified FOLFOX 6 but repeat imaging studies last year showed (+) lung mets for which she underwent wedge resection and also completed adjuvant chemotherapy Follow up with oncology (Dr. Macdonald) as scheduled (7) Rectal cancer metastasized to lung: Onset Date: ~2020 Comment: (Adenocarcinoma - s/p resection 07/31/21, radiation and Xeloda - met to lung s/p LLL wedge 10/2022) Code(s): C20 - Malignant neoplasm of rectum; C78.00 - Secondary malignant neoplasm of unspecified lung Category: Medical Plan: This was first noted incidentally on abdominal and pelvic CT done in July [address] done on 09/07/2022 confirmed the 1.5 cm left lower lobe lung mass with weak FDG activity, suspicious for malignancy S/P VATS and wedge resection by Dr Neil in October 2022 She was tarted on FOLFIRI with Avastin on 02/09/2023 and she completed adjuvant chemotherapy in late June [address] on 09/07/2023 and bone scan done a few weeks ago have so far shown no evidence of recurrence of her cancer She had follow up CTs done again in January 2024, which revealed no evidence of metastases Follow up with oncology as scheduled (8) Gastroesophageal reflux disease: Code(s): K21.9 - Gastro-esophageal reflux disease without esophagitis Category: Medical Qualifiers: Esophagitis presence: esophagitis presence not specified Qualified Code(s): K21.9 - Gastro-esophageal reflux disease without esophagitis Plan: Dietary restrictions reinforced Continue Omeprazole 20 mg QD (9) Vitamin D deficiency: Code(s): E55.9 - Vitamin D deficiency, unspecified Category: Medical Plan: Continue Vitamin D3 2000 units QD (10) Anxiety: Code(s): F41.9 - Anxiety disorder, unspecified Category: Medical Plan: Continue Hydroxyzine 25 mg BID PRN Plan Follow up in 3 months Orders: Referrals Orthopedics Referral M89.8X5 - Other specified disorders of bone, thigh, S92.355A - Nondisplaced fracture of fifth metatarsal bone, left foot, initial encounter for closed fracture Medications: Changed From omeprazole 20 mg PO DAILY@0630 30 caps 3RF To omeprazole 20 mg PO DAILY@0630 90 days 90 caps 1RF Refilled oxycodone Partial Fill upon patient request; refill Rx only when due 10 mg PO Q8H 10 days PRN 30 tabs 0RF Breakthrough Pain, Severe
--- OUTSIDE RECORDS SUMMARY | 2024-07-27 10:19 | XMS_ITS | Encounter Summary ---
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 Machine Operator Name Role Phone Unavailable Primary Care Provider Unavailabl e Reason for Visit * Reason Onset Date Comments missed call 06/14/2024 Encounter Details Date Type Department Care Team (Late st Contact Info) Description 06/14/2024 Telephone [facility] [address] [place] [address] Alessandro Mcmahon, VLADIMIR [address] [place] [address] missed call Social History Tobacco Use Types Packs/Day Years Used Date Smoking Tobacco: Never Smokeless Tobacco: Never Alcohol Use Standard Drinks/Week Comments Not Currently 0 (1 standard drink = 0.6 oz pur e alcohol) Comments Unknown Sex and Gender Information Value Date Recorded Sex Assigned at Female 04/26/2022 10:16 AM EDT Legal Sex Female 10:16 AM EDT Gender Identity Female 02/25/2023 8:48 AM EDT Sexual Orientation Choose not to disclose 2022 8:48 AM EDT documented as of this encounter Miscellaneous Notes * Telephone Encounter - Damion Parks - 06/14/2024 9:20 AM EST PT will like to be put on cancellation list for any up coming open spots CS documented in this encounter Plan of Treatment Not on file documented as of this encounter Visit Diagnoses Not on filedocumented in this encounter
--- OUTSIDE RECORDS SUMMARY | 2024-07-27 10:19 | XMS_ITS | Clinical Summary ---
[facility] Organization [facility] Address [id number] [place] [id number] Care Team Providers Care Cma Or Lpn Name Role Phone Ky Lin MD Primary Care Provider Surgical History Surgery Date Site/Laterality Comments COLONOSCOPY N/A PROCEDURE: HISTORICAL COLONOSCOPY ESOPHAGOGASTRODUODENOSCOPY N/A PROCEDURE: [facility] ESOPHAGOGASTRODUODENOSCOPY TRANSORAL DIAGNOSTIC OTHER SURGICAL HISTORY N/A PROCEDURE: [facility] HEMORRHOIDECTOMY NTRNL & XTRNL 1 COLUMN/GROUP OTHER SURGICAL HISTORY PROCEDURE: [facility] EXCISION NASAL POLYP SIMPLE TUBAL LIGATION Bilateral PROCEDURE: HISTORICAL TUBAL LIGATION OTHER SURGICAL HISTORY N/A PROCEDURE: VA UNLISTED PROCEDURE RECTUM OTHER SURGICAL HISTORY N/A PROCEDURE: [facility] FISSURECTOMY INCL SPHINCTEROTOMY WHEN PERFORMED OTHER SURGICAL HISTORY 11/02/2022 Left PROCEDURE: [facility] THORACOSCOPY W/THERA WEDGE RESEXN INITIAL UNILAT; COMMENT: LLL Medical History Medical History Date Comments Adenocarcinoma of rectum (CMS/HCC) DX:Adenocarcinoma of rectum (HCC) Chronic pain syndrome DX:Chronic pain syndrome GERD (gastroesophageal reflux disease) DX:GERD (gastroesophageal reflux disease) Sacroiliitis (CMS/HCC) DX:Sacroi liitis (HCC) Tubular adenoma DX:Tubular adeno ma Perianal dermatitis DX:Perianal dermatitis Vitamin D deficiency DX:Vitamin D deficiency Back pain with left-sided radiculopathy DX:Back pain with left-sided radiculopathy History of Helicobacter pylori infection DX:History of Helicobacter pylori infection Family History Medical History Relation Name Comments Diabetes Brother Hypertension Brother Other: heart Brother Diabetes Father Other: heart attack Father Diabetes Mother Hypertension Mother Uterine cancer Sister Relation Name Status Comments Brother Father Alive Mother Sister Alive Social History Tobacco Use Types Packs/Day Years Used Date Smoking Tobacco: Former Cigarettes Q uit: 06/27/2020 Alcohol Use Standard Drinks/Week Comments Never 0 (1 standard drink = 0.6 oz pur e alcohol) Sex and Gender Information Value Date Recorded Sex Assigned at Not on file Gender Identity Not on file Sexual Orientation Not on file Obstetrics History Last Filed Vital Signs Vital Sign Reading Time Taken Comments Blood Pressure 130/84 11/15/2022 10:18 AM EDT Si tting L Arm Pulse 84 11/15/2022 10:18 AM EDT Temperature - - Respiratory Rate - - Oxygen Saturation - - Inhaled Oxygen Concentration - - Weight 44.9 kg (99 lb) 11/15/2022 10:18 AM EDT Height 162.6 cm (5' 4 ) 11/15/2022 10:18 AM EDT Body Mass Index 16.99 11/15/2022 10:18 AM EDT Plan of Treatment Health Maintenance Due Date Last Done Comments Breast Cancer Screening 1969 COVID-19 Vaccine (#1) 1974 Pneumococcal Vaccine: Pediat rics (0 to 5 Years) and At-Risk Patients (6 to 64 Years) (1 of 2 - PCV) 1975 DTaP,Tdap,and Td Vaccines (1 - Tdap) 1988 Hepatitis B Vaccines (1 of 3 - 19+ 3-dose series) 1988 Zoster Vaccines (1 of 2) 1988 Cervical Cancer Screening: P ap Smear 1990 Colorectal Cancer Screening: Colonoscopy 07/22/2023 Depression Screening 07/22/2023 HIV Screening 07/22/2023 Hepatitis C Screening 07/22/2023 Social Influencers of Health Screening 07/22/2023 Influenza Vaccine (#1) 2024 HIB Vaccines Aged Out No longer eligi ble based on patient's age to complete this topic HPV Vaccines Aged Out No longer eligi ble based on patient's age to complete this topic Hepatitis A Vaccines Aged Out No long er eligible based on patient's age to complete this topic IPV Vaccines Aged Out No longer eligi ble based on patient's age to complete this topic MMR Vaccines Aged Out No longer eligi ble based on patient's age to complete this topic Meningococcal ACWY Vaccine Aged Out N o longer eligible based on patient's age to complete this topic RSV Immunization Patients Un kailey 20 months Aged Out No longer eligible b ased on patient's age to complete this topic Varicella Vaccines Aged Out No longer eligible based on patient's age to complete this topic Care Teams Cma Or Lpn Relationship Specialty Start Date End Date Ky Lin MD [address] [place] [address] Dr [address] DAGOBERTO Dahl PCP - General 10/11/22
--- OUTSIDE RECORDS SUMMARY | 2024-07-27 10:19 | XMS_ITS | Clinical Summary ---
Author Organization [employer] Address [address] [facility] [address] [place] [address] Care Team Providers Care Lamination Machine Operator Name Role Phone Unavailable Primary Care Provider Unavailabl e Allergies Active Allergy Reactions Criticality Noted Date Comments Gabapentin Nausea And Vomiting Low 11/04/2020 Upset stomach, dizziness and lightheadedness Ibuprofen Nausea And Vomiting Low 11/04/2020 Medications oxyCODONE (Roxicodone) 10 MG immediate release tablet 3 Active OxyCONTIN 20 MG 12 hr tablet TAKE 1 TABLET ORALLY EVERY 12 HOURS PARTIAL FILL UPON PATIENT REQUEST. 3 Active cyanocobalamin (Vitamin B-12) 1000 MCG tablet Take 1,000 mcg by mouth in the morning. Active folic acid (Folvite) 1 MG tablet Take 1,000 mcg by mouth Once per day. Active potassium chloride CR (Klor-Con) 10 MEQ ER tablet Take 20 mEq by mouth Once per day. 3 Active Sod Fluoride-Potass ium Nitrate 1.1-5 % pasteIndication s:Dental caries [place] teeth for 2 minutes, morning and night. Spit, do not rinse. Do not eat or drink anything for 30 minutes following brushing. 112 g 3 4 Active Active Problems No known active problems Encounters Date Type Department Care Team Description 06/14/2024 Telephone [facility] ADULT DENTAL [address] [place] [address] Alessandro Mcmahon DMD missed call 06/14/2024 Telephone [facility] [address] [place], [place] [phone] Lucho Cisneros from Last 3 Months Social History Tobacco Use Types Packs/Day Years Used Date Smoking Tobacco: Never Smokeless Tobacco: Never Tobacco Cessation:Counseling Given: Not Answered Alcohol Use Standard Drinks/Week Comments Not Currently 0 (1 standard drink = 0.6 oz pur e alcohol) Comments Unknown Sex and Gender Information Value Date Recorded Sex Assigned at Female 04/26/2022 10:16 AM EDT Legal Sex Female 10:16 AM EDT Gender Identity Female 02/25/2023 8:48 AM EDT Sexual Orientation Choose not to disclose 2022 8:48 AM EDT Last Filed Vital Signs Vital Sign Reading Time Taken Comments Blood Pressure 120/76 12/16/2023 10:30 AM EDT Pulse - - Temperature - - Respiratory Rate - - Oxygen Saturation - - Inhaled Oxygen Concentration - - Weight - - Height - - Body Mass Index - - Plan of Treatment Health Maintenance Due Date Last Done Comments CT Colonography 1969 Colonoscopy 1969 Colorectal Cancer Screening 1969 Dental Prophylaxis 1969 Depression Screening 1969 FIT DNA/Cologuard 1969 FIT 1969 FOBT 1969 HIV Screening 1969 SDOH Screening 1969 Sigmoidoscopy 1969 Alcohol/Substance Use Screening 1981 Hepatitis C Screening 1987 Hepatitis B Vaccines (1 of 3 - 19+ 3-dose series) 1988 Pap Smear 1990 Cervical Cancer Screening 1999 HPV/Cotest 1999 Mammogram 2009 Pneumococcal Vaccine: 50+ Years (1 of 1 - PCV) 2019 Zoster Vaccines (1 of 2) 2019 DTaP/Tdap/Td Vaccines (2 - T d or Tdap) 07/25/2023 07/25/2013 COVID-19 Vaccine (1 - 2023-2 5 season) 2024 Influenza Vaccine (#1) 2024 Dental Oral Exam 06/17/2024 12/16/2023 Tobacco Screening 12/15/2024 12/16/2023 Dental X-Ray: Bitewings 12/16/2024 12/16/19 24, 07/30/2020 Dental X-Ray: Full Mouth 12/16/2026 12/16/2023 RSV Patients and Patients Aged 60 years or older (1 - 1-dose 75+ series) 2044 HIB Vaccines Aged Out No longer eligi [...] patient's age to complete this topic Meningococcal Vaccine Aged Out No donovan deb eligible based on patient's age to complete this topic RSV under 20 months Aged Out No longe r eligible based on patient's age to complete this topic Rotavirus Vaccines Aged Out No longer eligible based on patient's age to complete this topic Procedures Procedure Name Priority Date/Time Associated Diagnosis Comments DIAGNOSTIC - DIAGNOSTIC IMAGING - INTRAORAL - COMPREHENSIVE SERIES OF RADIOGRAPHIC IMAGES Routine 12/16/2023 10:30 AM EDT Dental caries Periodontal disease COMPREHENSIVE ORAL EVALUATION - NEW OR ESTABLISHED PATIENT Routine 12/16/2023 10:30 AM EDT Dental caries Periodontal disease from Last 3 Months or Most Recently Relevant to Health Maintenance Insurance DENTAL-[facility] MEDICAID STAND ADULT Member Subscriber Plan / Payer (Ef fective 2023-Present) Name:Amanda De V Relation to Subscriber:Self Name:Amanda De V Payer ID:Not on file Group ID:Not on file Type:Not on file Address: [place] [phone]
== END 2024-07-27 10:56 | disposition home or self-care (01) ==
PROVIDERS: PCP Internal Medicine; Visit Provider Internal Medicine
DX: S92.355A Nondisplaced fracture of fifth metatarsal bone, left foot, initial encounter for closed fracture (principal); M46.1 Sacroiliitis, not elsewhere classified; C20 Malignant neoplasm of rectum; C78.00 Secondary malignant neoplasm of unspecified lung; K62.89 Other specified diseases of anus and rectum; M25.552 Pain in left hip; M54.16 Radiculopathy, lumbar region; K21.9 Gastro-esophageal reflux disease without esophagitis; E55.9 Vitamin D deficiency, unspecified; F41.9 Anxiety disorder, unspecified

== ENCOUNTER → 2024-07-27 09:43 | Outpatient (BNVA) | payer MEDICARE, MEDICAID, SELFPAY | PROVIDERS: PCP Internal Medicine; Visit Provider Internal Medicine | DX: S92.355D Nondisplaced fracture of fifth metatarsal bone, left foot, subsequent encounter for fracture with routine healing (principal); K62.89 Other specified diseases of anus and rectum; M46.1 Sacroiliitis, not elsewhere classified; M25.552 Pain in left hip; M54.16 Radiculopathy, lumbar region; C20 Malignant neoplasm of rectum; C78.00 Secondary malignant neoplasm of unspecified lung; K21.9 Gastro-esophageal reflux disease without esophagitis; F41.9 Anxiety disorder, unspecified; E55.9 Vitamin D deficiency, unspecified | CPT/HCPCS: 96127; 99212 ==

== ENCOUNTER 2024-08-03 08:40 | Outpatient (REF) | payer MEDICARE, MEDICAID, SELFPAY ==
--- NOTE | ~2024-08-03 | XR_ITS ---
CLINICAL HISTORY: fall pain swelling 3 view left foot Comparison: 07/26/2024 Findings: There is no discernible healing response of the 5th metatarsal fracture. No dislocations. No significant loss of joint space, osteophytes, or erosions. No ankle effusion. No radiopaque foreign body. IMPRESSION: 1. No change in appearance of the 5th metatarsal fracture from prior exam. This document has been electronically signed by: Daniel White MD on 08/04/2024 08:45:32
--- OUTSIDE RECORDS SUMMARY | 2024-08-06 08:59 | XMS_ITS | Encounter Summary ---
Author Organization [employer] Address [address] [facility] [address] [place] [address] Care Team Providers Care Orthophotography Technician Name Role Phone Unavailable Primary Care Provider Unavailabl e Reason for Visit * Reason Onset Date Comments missed call 06/14/2024 Encounter Details Date Type Department Care Team (Late st Contact Info) Description 06/14/2024 Telephone [facility] ADULT DENTAL [address] [place] [address] Alessandro Mcmahon, VLADIMIR [address] [place] [address] missed call Social History Tobacco Use Types [...]
--- OUTSIDE RECORDS SUMMARY | 2024-08-06 08:59 | XMS_ITS | Clinical Summary ---
Author Organization [employer] Address [address] [facility] [address] [place] [address] Care Team Providers Care Pin Drafter Name Role Phone Unavailable Primary Care Provider [...] ium Nitrate 1.1-5 % pasteIndication s:Dental caries [place] teeth for 2 minutes, morning and night. Spit, do not rinse. Do not eat or drink anything for 30 minutes following brushing. 112 g 3 4 Active Active Problems No known active problems Encounters Date Type Department Care Team Description 06/14/2024 Telephone [facility] ADULT DENTAL [address] [place] [address] Alessandro Mcmahon DMD missed call 06/14/2024 Telephone [facility] ADULT DENT[facility] [address] [place], [place] [phone] Lucho Cisneros from Last 3 Months Social [...] Most Recently Relevant to Health Maintenance Insurance DENTAL-[facility] MEDICAID STAND ADULT Member Subscriber Plan / Payer (Ef fective 2023-Present) Name:Amanda De V Relation to Subscriber:Self Name:Amanda De V Payer ID:Not on file Group ID:Not on file Type:Not on file Address: [place] [phone]
--- OUTSIDE RECORDS SUMMARY | 2024-08-06 09:00 | XMS_ITS | Clinical Summary ---
Author Organization [facility] Address [address] [place] [phone] Care Team Providers Care Director [employer] Name Role Phone Ky Lin MD Primary Care Provider Surgical History Surgery Date Site/Laterality Comments COLONOSCOPY N/A PROCEDURE: HISTORICAL COLONOSCOPY ESOPHAGOGASTRODUODENOSCOPY N/A PROCEDURE: [place] ESOPHAGOGASTRODUODENOSCOPY TRANSORAL DIAGNOSTIC OTHER SURGICAL HISTORY N/A PROCEDURE: AK HEMORRHOIDECTOMY NTRNL & XTRNL 1 COLUMN/GROUP OTHER SURGICAL HISTORY PROCEDURE: AK EXCISION NASAL POLYP SIMPLE TUBAL LIGATION Bilateral PROCEDURE: HISTORICAL TUBAL LIGATION OTHER SURGICAL HISTORY N/A PROCEDURE: AK UNLISTED PROCEDURE RECTUM OTHER SURGICAL HISTORY N/A PROCEDURE: AK FISSURECTOMY INCL SPHINCTEROTOMY WHEN PERFORMED OTHER SURGICAL HISTORY 11/02/2022 Left PROCEDURE: [place] THORACOSCOPY W/THERA WEDGE RESEXN INITIAL UNILAT; COMMENT: [...] Recorded Sex Assigned at Not on file Legal Sex Female 8:55 PM EST Gender Identity Not on file Sexual Orientation [...] Cancer Screening 1969 COVID-19 Vaccine (#1) 1974 DTaP,Tdap,and Td Vaccines (1 - Tdap) 1976 Hepatitis B Vaccines (1 of 3 - 19+ 3-dose series) 1988 Pneumococcal Vaccine: 50+ Ye ars (1 of 2 - PCV) 1988 Pneumococcal Vaccine: Pediat rics (0 to 5 Years) and At-Risk Patients (6 to 64 Years) (1 of 2 - PCV) 1988 Zoster Vaccines (1 of 2) 1988 [...] patient's age to complete this topic Meningococcal B Vacine Aged Out No lo nger eligible based on patient's age to complete this topic RSV Immunization Patients Un kailey 20 months Aged Out No longer eligible b ased on patient's age to complete this topic Varicella Vaccines Aged Out No longer eligible based on patient's age to complete this topic Care Teams Director [employer] Relationship Specialty Start Date End Date Ky Lin MD [address] [place] [address] Dr [address] [place] PCP - General 10/11/22
== END 2024-08-03 08:41 | disposition home or self-care (01) ==
LOC: HO.HOSX 08:40
PROVIDERS: Visit Provider Physician Assistant
DX: S92.355A Nondisplaced fracture of fifth metatarsal bone, left foot, initial encounter for closed fracture (principal)
CPT/HCPCS: 73630; 99212

== ENCOUNTER 2024-08-03 09:55 | Outpatient (AMB) | payer MEDICARE, MEDICAID, SELFPAY ==
--- NOTE | 2024-08-03 10:12 | A.OFFVIS_ITS ---
Intake Visit Reasons: FC-Fifth metatarsal bone, left foot DOI 07/25/24 Intake Note: This is a 53 year old female who presents for fifth metatarsal bone, left foot follow up DOI 07/25/24. X rays updated in the office today. She reports throbbing and a little bit of pain on the top of her foot. She has a post op s hoe on her left foot and is using crutches to ambulate. Allergies gabapentin Adverse Reaction (Unknown, Verified 08/03/24 10:15) dizziness, lightheadedness ibuprofen Adverse Reaction (Unknown, Verified 08/03/24 10:15) nausea and vomiting Medication List - Last Reconciled 08/03/24 by Jade Daniel RN celecoxib (Celebrex) 200 mg PO BID 30 days cholecalciferol (vitamin D3) 50 mcg PO FR cyanocobalamin (vitamin B-12) 1,000 mcg PO DAILY folic acid 1 mg PO DAILY 90 days hydrocortisone 2.5% 1 appl SD BEDTIME PRN megestrol 800 mg (20 mL) PO DAILY naproxen 500 mg PO Q12H PRN omeprazole 20 mg PO DAILY@0630 90 days oxycodone 10 mg PO Q8H PRN 10 days potassium chloride ER 20 mEq (2 x 10 mEq) PO DAILY HPI HPI FC-Fifth metatarsal bone, left foot DOI 07/25/24: Details: 53-year-old female presents to the office today for an injury she sustained to her left foot on 07/25/2024. She was seen in the emergency department, x-rays obtained and was found to have a 5th metatarsal shaft fracture where she was given a postop shoe and referred to our office for ortho eval. [facility] Medical History External hemorrhoids with complication Port-A-Cath in place Osteoarthritis of sacroiliac joint Rectal pain History of rectal cancer Rectal cancer metastasized to lung (~2020) Mass of left lung Intractable pain Personal history of nicotine dependence Perianal dermatitis Vitamin D deficiency ASCUS with positive high risk HPV cervical Gastroesophageal reflux disease Tubular adenoma H. pylori infection Chronic pain syndrome Sacroiliitis Lumbar back pain with radiculopathy affecting left lower extremity Surgical History History of lung surgery (~2022) History of colonoscopy History of tubal ligation (~1999) History of hemorrhoidectomy (~2007) History of low anterior resection of rectum (~07/2021) History of reversal of ileostomy (~12/2021) S/P anal fissurectomy (~2008) History of bursectomy (~2013) History of nasal polypectomy History of esophagogastroduodenoscopy (EGD) Family History Mother Diabetes HTN (hypertension) Father Diabetes Heart attack Brother Diabetes Heart problem HTN (hypertension) Maternal Aunt Breast cancer Sister Uterus cancer Maternal Aunt Breast cancer Mother Lung cancer Other Mental health disorder Social History Household Members: Significant Other Housing: House Are you a primary child care assistant to a significant other at home: No Do you presently have visiting nurse or other home services: No Alcohol intake: never Patient Tobacco Use Status: Former Tobacco user e-Cigarette/Vaping Use: Never Used Second Hand Smoke Exposure: Yes service: No Current occupational status: unemployed and disabled Cognitive needs: No Hearing needs: No Vision needs: No Review of Systems Const All systems reviewed & are unremarkable except as noted in HPI and below Physical Exam Extrem Other: Left foot normal to inspection. She has some tenderness over the 5th metatarsal with mild swelling. Full sensation pulses are present. Office Procedures AMB Fracture Care Fracture Billing Code: Fracture Billing Code Results Reviewed Results Reviewed: Xrays were obtained in the office today and personally reviewed by me of the left foot show spiral fracture mid fifth metatarsal with minimal displacement. Assessment & Plan Assessment & Plan (1) Nondisplaced fracture of fifth left metatarsal bone: Code(s): S92.355A - Nondisplaced fracture of fifth metatarsal bone, left foot, initial encounter for closed fracture Category: Medical Qualifiers: Encounter type: initial encounter Fracture type: closed Qualified Code(s): S92.355A - Nondisplaced fracture of fifth metatarsal bone, left foot, initial encounter for closed fracture Plan: She was given a short boot weightbearing as tolerated. She can begin transitioning to a regular street shoe in approximately 4-6 weeks based on her pain tolerance. I did explain that this is something that can take 6 weeks to feel comfortable walking with an at that time she may need to alternate her shoe wear based on comfort and swelling of the foot which can fluctuate with activities. She does express understanding and will increase activities as tolerated. If symptoms persist or worsen she will contact our office otherwise follow-up as needed. Orders: Orders XR foot LT min 3V Today M79.672 - Pain in left foot Coding Level of Care Code Est Pt Level 3 (80386) Complex EM visit Add On G2211 Diagnoses Closed nondisplaced fracture of fifth metatarsal bone of left foot, initial encounter S92.355A Encounter type: initial encounter Fracture type: closed CPT Codes Fracture Care - Fracture Billing Code: Fracture Billing Code ([id number])
--- OUTSIDE RECORDS SUMMARY | 2024-08-03 10:39 | XMS_ITS | Clinical Summary ---
Author Organization [employer] Address [address] [facility] [address] [place] [address] Care Team Providers Care Locker Operator Name Role Phone Unavailable Primary Care [...] ium Nitrate 1.1-5 % pasteIndication s:Dental caries [place] teeth for 2 minutes, morning and night. Spit, do not rinse. Do not eat or drink anything for 30 minutes following brushing. 112 g 3 4 Active Active Problems No known active problems Encounters Date Type Department Care Team Description 06/14/2024 Telephone [facility] ADULT DENTAL [address] [place] [address] Alessandro Mcmahon DMD missed call 06/14/2024 Telephone [facility] ADULT DENTAL [address] [place], [place] [phone] Lucho Cisneros from Last 3 Months Social [...] Most Recently Relevant to Health Maintenance Insurance DENTAL-[facility] MEDICAID STAND ADULT Member Subscriber Plan / Payer (Ef fective 2023-Present) Name:Amanda De V Relation to Subscriber:Self Name:Amanad De V Payer ID:Not on file Group ID:Not on file Type:Not on file Address: [place] [phone]
--- OUTSIDE RECORDS SUMMARY | 2024-08-03 10:39 | XMS_ITS | Encounter Summary ---
Author Organization [employer] Address [address] [facility] 7[address] [place] [address] Care Team Providers Care Glove Cuffer Name Role Phone Unavailable Primary Care Provider Unavailabl e Reason for Visit * Reason Onset Date Comments missed call 06/14/2024 Encounter Details Date Type Department Care Team (Late st Contact Info) Description 06/14/[address] [facility] ADULT DENTAL [address] [place] [address] Alessandro Mcmahon, VLADIMIR [address] [place] [address] missed call Social History Tobacco Use Types [...]
--- OUTSIDE RECORDS SUMMARY | 2024-08-03 10:39 | XMS_ITS | Clinical Summary ---
Author Organization [facility] Address [address] [place] [id number] Care Team Providers Care Supervisor Cutting Department Name Role Phone Ky Lin MD Primary Care Provider Surgical History Surgery Date Site/Laterality Comments COLONOSCOPY N/A PROCEDURE: HISTORICAL COLONOSCOPY ESOPHAGOGASTRODUODENOSCOPY N/A PROCEDURE: ID ESOPHAGOGASTRODUODENOSCOPY TRANSORAL DIAGNOSTIC OTHER SURGICAL HISTORY N/A PROCEDURE: ID HEMORRHOIDECTOMY NTRNL & XTRNL 1 COLUMN/GROUP OTHER SURGICAL HISTORY PROCEDURE: ID EXCISION NASAL POLYP SIMPLE TUBAL LIGATION Bilateral PROCEDURE: HISTORICAL TUBAL LIGATION OTHER SURGICAL HISTORY N/A PROCEDURE: ID UNLISTED PROCEDURE RECTUM OTHER SURGICAL HISTORY N/A PROCEDURE: ID FISSURECTOMY INCL SPHINCTEROTOMY WHEN PERFORMED OTHER SURGICAL HISTORY 11/02/2022 Left PROCEDURE: ID THORACOSCOPY W/THERA WEDGE RESEXN INITIAL UNILAT; COMMENT: [...] age to complete this topic Care Teams Supervisor Cutting Department Relationship Specialty Start Date End Date Ky Lin MD [address] [place] [address] Dr [address] DAGOBERTO Dahl PCP - General 10/11/22
== END 2024-08-03 11:09 | disposition home or self-care (01) ==
PROVIDERS: PCP Internal Medicine; Visit Provider Physician Assistant
DX: S92.355A Nondisplaced fracture of fifth metatarsal bone, left foot, initial encounter for closed fracture (principal)
CPT/HCPCS: 28470; 99213; G2211

== ENCOUNTER → 2024-08-03 10:00 | Outpatient (BNV) | payer MEDICARE, MEDICAID, SELFPAY | PROVIDERS: Visit Provider Specialist | DX: M79.672 Pain in left foot (principal) | CPT/HCPCS: 73630 ==

== ENCOUNTER 2024-09-17 12:54 | Outpatient (AMB) | payer MEDICARE, MEDICAID, SELFPAY ==
--- NOTE | 2024-09-17 13:16 | A.OFFVIS_ITS ---
Intake Visit Reasons: ov-Fifth metatarsal bone, left foot DOI 07/25/24 Intake Note: Amanda is a 54 year old female who presents today for a follow up of left foot, 5th metatarsal fracture, DOI 07/25/24. X-rays updated in the office today. Patient reports that her pain has improved and is able to apply more weight to her foot when not wearing post op shoe. States she continues to wear post op shoe when she is out and about. Allergies gabapentin Adverse Reaction (Unknown, Verified 08/28/24 10:45) dizziness, lightheadedness ibuprofen Adverse Reaction (Unknown, Verified 08/28/24 10:45) nausea and vomiting Medication List - Last Reconciled 09/17/24 by RANDOLPH Stone-Placido cholecalciferol (vitamin D3) 50 mcg PO FR cyanocobalamin (vitamin B-12) 1,000 mcg PO DAILY folic acid 1 mg PO DAILY 90 days hydrocortisone 2.5% 1 appl [place] BEDTIME PRN megestrol 800 mg (20 mL) PO DAILY naproxen 500 mg PO Q12H PRN omeprazole 20 mg PO DAILY@0630 90 days oxycodone 10 mg PO Q8H PRN 10 days potassium chloride ER 20 mEq (2 x 10 mEq) PO DAILY HPI HPI ov-Fifth metatarsal bone, left foot DOI 07/25/24: Details: 54-year-old female returns to the office today for a follow-up left foot 5th metatarsal fracture on 07/25/2024. She states she has been ambulating with a postop shoe with minimal discomfort. She has remove the shoe and weight bear without such as while in the shower with no pain. [facility] Medical History External hemorrhoids with complication Port-A-Cath in place Osteoarthritis of sacroiliac joint Rectal pain History of rectal cancer Rectal cancer metastasized to lung (~2020) Mass of left lung Intractable pain Personal history of nicotine dependence Perianal dermatitis Vitamin D deficiency ASCUS with positive high risk HPV cervical Gastroesophageal reflux disease Tubular adenoma H. pylori infection Chronic pain syndrome Sacroiliitis Lumbar back pain with radiculopathy affecting left lower extremity Surgical History History of lung surgery (~2022) History of colonoscopy History of tubal ligation (~1999) History of hemorrhoidectomy (~2007) History of low anterior resection of rectum (~07/2021) History of reversal of ileostomy (~12/2021) S/P anal fissurectomy (~2008) History of bursectomy (~2013) History of nasal polypectomy History of esophagogastroduodenoscopy (EGD) Family History Mother Diabetes HTN (hypertension) Father Diabetes Heart attack Brother Diabetes Heart problem HTN (hypertension) Maternal Aunt Breast cancer Sister Uterus cancer Maternal Aunt Breast cancer Mother Lung cancer Other Mental health disorder Social History Household Members: Significant Other Housing: House Are you a primary health careers instructor to a significant other at home: No Do you presently have visiting nurse or other home services: No Alcohol intake: never Patient Tobacco Use Status: Former Tobacco user e-Cigarette/Vaping Use: Never Used Second Hand Smoke Exposure: Yes service: No Current occupational status: unemployed and disabled Cognitive needs: No Hearing needs: No Vision needs: No Review of Systems Const All systems reviewed & are unremarkable except as noted in HPI and below Physical Exam Extrem Other: Left foot normal to inspection. Mild tenderness to palpation. No bony deformity. Neurovascularly intact. Results Reviewed Results Reviewed: X-rays of the left foot obtained in the office today and reviewed by me show left 5th metatarsal fracture with interval healing. Assessment & Plan Assessment & Plan (1) Nondisplaced fracture of fifth left metatarsal bone: Code(s): S92.355A - Nondisplaced fracture of fifth metatarsal bone, left foot, initial encounter for closed fracture Category: Medical Qualifiers: Encounter type: initial encounter Fracture type: closed Qualified Code(s): S92.355A - Nondisplaced fracture of fifth metatarsal bone, left foot, initial encounter for closed fracture Plan: She will continue to increase activities as tolerated. She can transition to a regular street shoe as tolerated. If symptoms arise or there is any concerns she contact our office otherwise follow up as needed. Orders: Orders XR foot LT min 3V Today M79.672 - Pain in left foot Coding Level of Care Code Global (25304) Diagnoses Closed nondisplaced fracture of fifth metatarsal bone of left foot, initial encounter S92.355A Encounter type: initial encounter Fracture type: closed
== END 2024-09-17 13:39 | disposition home or self-care (01) ==
LOC: HO.HOS 12:55
PROVIDERS: PCP Internal Medicine; Visit Provider Physician Assistant
DX: S92.355A Nondisplaced fracture of fifth metatarsal bone, left foot, initial encounter for closed fracture (principal)
CPT/HCPCS: 99024

== ENCOUNTER 2024-09-17 12:54 | Outpatient (REF) | payer MEDICARE, MEDICAID, SELFPAY ==
--- NOTE | ~2024-09-17 | XR_ITS ---
CLINICAL HISTORY: M79.672 - Pain in left foot 3 view left foot Comparison: DX/OR - XR FOOT LT MIN 3V - 08/03/24 10:00 EST CR/SR - XR FOOT LT MIN 3V - 07/26/24 09:30 EST Findings: There is an oblique minimally displaced 5th metatarsal fracture again seen, with persistent visualization of the fracture margins. Decreased bone mineralization, likely due to disuse osteopenia. No significant arthritic change or erosions. No ankle effusion. No radiopaque foreign body. IMPRESSION: Oblique fracture of the 5th metatarsal again seen. Disuse osteopenia. This document has been electronically signed by: Alejandro Castellanos MD on 09/18/2024 20:59:07
== END 2024-09-17 12:55 | disposition home or self-care (01) ==
LOC: HO.HOSX 12:54
PROVIDERS: PCP Internal Medicine; Visit Provider Physician Assistant
DX: M79.672 Pain in left foot (principal); S92.355A Nondisplaced fracture of fifth metatarsal bone, left foot, initial encounter for closed fracture
CPT/HCPCS: 73630; 99212

== ENCOUNTER → 2024-09-17 13:00 | Outpatient (BNV) | payer MEDICARE, MEDICAID, SELFPAY | PROVIDERS: PCP Internal Medicine; Visit Provider Radiology Diagnostic Radiology | DX: M79.672 Pain in left foot (principal) | CPT/HCPCS: 73630 ==

== ENCOUNTER 2024-09-26 12:12 | Outpatient (REF) | payer MEDICARE, MEDICAID, SELFPAY ==
--- NOTE | ~2024-09-26 | CT_ITS ---
CLINICAL HISTORY: Carcinoma of the rectum CT abdomen and pelvis with contrast Comparison: CT/MO/SR - CT ABDOMEN PELVIS W IV CON - 03/06/24 14:54 EDT Findings: The lung bases are clear. There is focal fat adjacent to the falciform ligament. No metastatic lesions are noted. The gallbladder is normal. The rest of the solid organs are unremarkable. The colon demonstrates no definite evidence of recurrent disease. Pelvic contents unremarkable. Normal appendix. The bones are intact. The rest of the GI tract is unremarkable. IMPRESSION: No acute findings. No evidence of recurrent disease. This document has been electronically signed by: Marko Anderson MD on 09/27/2024 09:32:06
--- NOTE | ~2024-09-26 | CT_ITS ---
CLINICAL HISTORY: Pulmonary nodules, Mets from rectal CA CT chest with contrast Comparison: None Findings: The heart is normal size. The visualized thyroid and mediastinum are unremarkable. A MediPort is present and adequately positioned. There are postoperative changes in the left lower lobe. The visualized upper abdomen is unremarkable. No acute fractures. IMPRESSION: 1. No acute abnormalities. No pulmonary metastasis noted. Postoperative changes left lower lobe. This document has been electronically signed by: Marko Anderson MD on 09/27/2024 09:28:01
--- OUTSIDE RECORDS SUMMARY | 2024-09-26 14:47 | XMS_ITS | Encounter Summary ---
Author Organization [employer] Address [address] [facility] [address] [place] [address] Care Team Providers Care Laundry Helper Name Role Phone Unavailable Primary Care Provider Unavailabl e Reason for Visit * Reason Onset Date Comments missed call 06/14/2024 Encounter Details Date Type Department Care Team (Late st Contact Info) Description 06/14/2024 Telephone [facility] ADULT DENTAL [address] [place] [address] Alessandro Mcmahon, VLADIMIR [address] [place] [address] missed call Social History Tobacco Use Types [...]
--- OUTSIDE RECORDS SUMMARY | 2024-09-26 14:47 | XMS_ITS | Clinical Summary ---
Author Organization [employer] [facility] Address [address] [facility] [address] [place] [address] Care Team Providers Care Room Designer Name Role Phone Unavailable Primary Care Provider [...] ium Nitrate 1.1-5 % pasteIndication s:Dental caries [place] teeth for 2 minutes, morning and night. Spit, do not rinse. Do not eat or drink anything for 30 minutes following brushing. 112 g 3 4 Active Active Problems No known active problems Social History Tobacco Use Types Packs/Day Years [...] d or Tdap) 07/25/2023 07/25/2013 COVID-19 Vaccine ( - 2023-2 5 season) 2024 Influenza Vaccine [...] Procedure Name Priority Date/Time Associated Diagnosis Comments INTRAORAL - COMPLETE SERIES OF RADIOGRAPHIC IMAGES Routine 12/16/2023 10:30 AM EDT Dental caries Periodontal disease COMPREHENSIVE ORAL EVALUATION - NEW OR ESTABLISHED PATIENT Routine 12/16/2023 10:30 AM EDT Dental caries Periodontal disease from Last 3 Months or Most Recently Relevant to Health Maintenance Insurance [facility] MEDICAID STAND ADULT
--- OUTSIDE RECORDS SUMMARY | 2024-09-26 14:47 | XMS_ITS | Clinical Summary ---
[facility] Address [address] [place] [phone] Care Team Providers Care Machine Baster Name Role Phone Ky Lin MD Primary Care Provider Surgical History Surgery Date Site/Laterality Comments COLONOSCOPY N/A PROCEDURE: HISTORICAL COLONOSCOPY ESOPHAGOGASTRODUODENOSCOPY N/A PROCEDURE: MO ESOPHAGOGASTRODUODENOSCOPY TRANSORAL DIAGNOSTIC OTHER SURGICAL HISTORY N/A PROCEDURE: MO HEMORRHOIDECTOMY NTRNL & XTRNL 1 COLUMN/GROUP OTHER SURGICAL HISTORY PROCEDURE: MO EXCISION NASAL POLYP SIMPLE TUBAL LIGATION Bilateral PROCEDURE: HISTORICAL TUBAL LIGATION OTHER SURGICAL HISTORY N/A PROCEDURE: MO UNLISTED PROCEDURE RECTUM OTHER SURGICAL HISTORY N/A PROCEDURE: MO FISSURECTOMY INCL SPHINCTEROTOMY WHEN PERFORMED OTHER SURGICAL HISTORY 11/02/2022 Left PROCEDURE: MO THORACOSCOPY W/THERA WEDGE RESEXN INITIAL UNILAT; COMMENT: [...] 1974 DTaP,Tdap,and Td Vaccines (1 - Tdap) 1988 [...] age to complete this topic Care Teams Machine Baster Relationship Specialty Start Date End Date Ky Lin MD [address] [place] [address] Dr [address] [place] PCP - General 10/11/22
[2024-09-26] MEDS: iohexoL 350 MG/ML 100 ML INFUS..BTL IV (16:51)
[2024-09-26] MEDS: Barium Sulfate Oral (Vanilla) 450 ML ORAL.SUSP 900 ML PO (16:52)
== END 2024-09-26 12:13 | disposition home or self-care (01) ==
LOC: HO.CT 12:12
PROVIDERS: PCP Internal Medicine; Visit Provider Internal Medicine Medical Oncology
DX: C20 Malignant neoplasm of rectum (principal)
CPT/HCPCS: 71260; 74177; Q9967

== ENCOUNTER → 2024-09-26 12:43 | Outpatient (BNV) | payer MEDICARE, MEDICAID, SELFPAY | PROVIDERS: PCP Internal Medicine; Visit Provider Radiology Diagnostic Radiology | DX: C20 Malignant neoplasm of rectum (principal); R91.1 Solitary pulmonary nodule | CPT/HCPCS: 71260; 74177 ==

== ENCOUNTER 2024-10-17 12:51 | Outpatient (AMB) | payer MEDICARE, MEDICAID, SELFPAY ==
--- NOTE | 2024-10-17 12:57 | A.OFFVIS_ITS ---
Vital Signs 10/17/24 13:07 Height 5 ft 1 in Weight 111 lb BMI 21.0 BP 121/76 Blood Pressure Location Rt brachial Position Sitting Pulse 107 H Intake Visit Reasons: carcinoma rectum Intake Note: Patient here for 6m follow rectal CA. Reports Colon CA stable. Colonoscopy scheduled for December. Dr. Macdonald referred for LLQ pain that started 1m. Patient c/o: pain gets worse when changing position from bending to standing. Abd/ pelvis CT on 09-27-2024 Client Development Manager Required: No Accompanied by: Self / Same As Patient Allergies gabapentin Adverse Reaction (Unknown, Verified 10/17/24 13:06) dizziness, lightheadedness ibuprofen Adverse Reaction (Unknown, Verified 10/17/24 13:06) nausea and vomiting Medication List - Last Reconciled 10/17/24 by Max Frye MD barium sulfate 2%(w/v) (Readi-Cat 2) 450 mL PO BID cholecalciferol (vitamin D3) 50 mcg PO FR cyanocobalamin (vitamin B-12) 1,000 mcg PO DAILY folic acid 1 mg PO DAILY 90 days hydrocortisone 2.5% 1 appl [place] BEDTIME PRN megestrol 800 mg (20 mL) PO DAILY naproxen 500 mg PO Q12H PRN omeprazole 20 mg PO DAILY@0630 90 days oxycodone 10 mg PO Q8H PRN 2 days oxycodone 10 mg PO Q8H PRN 10 days potassium chloride ER 20 mEq (2 x 10 mEq) PO DAILY HPI HPI carcinoma rectum: Details: She is here for follow-up after ultra-low anterior resection for her rectal cancer in 2020. She had lung metastases he was ago and she had undergone wedge resection for this with Dr. Johnson. She had a colonoscopy last year which did not reveal any adhesions She says she seems to be doing quite well. I had started her on fiber supplementation on her last visit because of her hemorrhoid issues. She says that she says helped. She is off chemotherapy at this time. She is waiting for a follow up CAT scan next month for surveillance. She does state that she has occasional crampy pain on her abdominal wall in the lower abdomen as well as on her old ileostomy incision. She denies changes in her bowel habits. [facility] Medical History External hemorrhoids with complication Port-A-Cath in place Osteoarthritis of sacroiliac joint Rectal pain History of rectal cancer Rectal cancer metastasized to lung (~2020) Mass of left lung Intractable pain Personal history of nicotine dependence Perianal dermatitis Vitamin D deficiency ASCUS with positive high risk HPV cervical Gastroesophageal reflux disease Tubular adenoma H. pylori infection Chronic pain syndrome Sacroiliitis Lumbar back pain with radiculopathy affecting left lower extremity Surgical History History of lung surgery (~2022) History of colonoscopy History of tubal ligation (~1999) History of hemorrhoidectomy (~2007) History of low anterior resection of rectum (~07/2021) History of reversal of ileostomy (~12/2021) S/P anal fissurectomy (~2008) History of bursectomy (~2013) History of nasal polypectomy History of esophagogastroduodenoscopy (EGD) Family History Mother Diabetes HTN (hypertension) Father Diabetes Heart attack Brother Diabetes Heart problem HTN (hypertension) Maternal Aunt Breast cancer Sister Uterus cancer Maternal Aunt Breast cancer Mother Lung cancer Other Mental health disorder Social History Household Members: Significant Other Housing: House Are you a primary point of care technician to a significant other at home: No Do you presently have visiting nurse or other home services: No Alcohol intake: never Patient Tobacco Use Status: Former Tobacco user e-Cigarette/Vaping Use: Never Used Second Hand Smoke Exposure: Yes service: No Current occupational status: unemployed and disabled Cognitive needs: No Hearing needs: No Vision needs: No Review of Systems Const Denies chills and Denies fever(s) Card Denies chest pain, Denies dyspnea and Denies dyspnea on exertion Resp Denies cough, Denies dyspnea and Denies dyspnea on exertion GI Details: Occasional watery stools Denies hematochezia and Denies change in bowel habits Denies hematuria Musc Denies back pain and Denies limited range of motion Neuro Denies focal weakness and Denies convulsions Psych Denies depression and Denies mood swings Physical Exam Vital Signs: Last Vital Signs Pulse 107 H 10/17/24 13:07 BP 121/76 10/17/24 13:07 BMI result Body Mass Index 21.0 Const General: comfortable and no acute distress Resp Effort & Inspection: normal respiratory effort Cardio Rate: regular rate GI Other: Rectal exam - radiation changes, no suggestion of any lesions in the anal verge, no ulceration or fissure; she refused digital exam and anoscopy Palpation (GI): Soft to palpation, not firm and nontender Assessment & Plan Assessment & Plan (1) History of rectal cancer: Code(s): Z85.048 - Personal history of other malignant neoplasm of rectum, rectosigmoid junction, and anus Category: Medical Plan: She had history of rectal cancer and had undergone low anterior resection in [place]. She did have lung metastasis thereafter and she had undergone resection for this She seemed to doing well overall. Her colonoscopy from April 2024 seems to be unremarkable. Her CEA level remains low. She does describe some pain on the abdomen periodically as well on her previous incision on the ileostomy site. This is likely to be muscular in origin as she does not have any he had GI issues and her CAT scan was unremarkable I will see her again in the office in about 6 months. She will have her survei llance CAT scan next month. Coding Level of Care Code Est Pt Level 3 (74285) Diagnoses History of rectal cancer Z85.048
[2024-10-17 13:07] VITALS: BP 121/76; PULSE 107; BMI 21.0
--- OUTSIDE RECORDS SUMMARY | 2024-10-17 15:08 | XMS_ITS | Clinical Summary ---
Author Organization [facility] Address [address] [place] [address] Care Team Providers Care Roof Bolter Helper Name Role Phone Unavailable Primary Care [...] ium Nitrate 1.1-5 % pasteIndication s:Dental caries Alba teeth for 2 minutes, morning and night. [...] Mass Index - - Plan of Treatment Upcoming Encounters Date Type Department Care Team (Late st Contact Info) Description 10/25/2024 11:00 AM EDT Office Visit [facility] ADULT DENTAL [address] [place] [address] Rizwana Worthy Health Maintenance Due Date Last Done Comments [...] Most Recently Relevant to Health Maintenance Insurance [facility] AD[place] * Guarantor: Amanda De V Account Type Relation to Patient Date of Phone Billing Address Personal/[place] [address]
--- OUTSIDE RECORDS SUMMARY | 2024-10-17 15:08 | XMS_ITS | Clinical Summary ---
Author Organization [facility] Address [id number] [place] [phone] Care Team Providers Care Idea Worker Name Role Phone Ky Lin MD Primary Care Provider Surgical History Surgery Date Site/Laterality Comments COLONOSCOPY N/A PROCEDURE: HISTORICAL COLONOSCOPY ESOPHAGOGASTRODUODENOSCOPY N/A PROCEDURE: [place] ESOPHAGOGASTRODUODENOSCOPY TRANSORAL DIAGNOSTIC OTHER SURGICAL HISTORY N/A PROCEDURE: SC HEMORRHOIDECTOMY NTRNL & XTRNL 1 COLUMN/GROUP OTHER SURGICAL HISTORY PROCEDURE: SC EXCISION NASAL POLYP SIMPLE TUBAL LIGATION Bilateral PROCEDURE: HISTORICAL TUBAL LIGATION OTHER SURGICAL HISTORY N/A PROCEDURE: SC UNLISTED PROCEDURE RECTUM OTHER SURGICAL HISTORY N/A PROCEDURE: SC FISSURECTOMY INCL SPHINCTEROTOMY WHEN PERFORMED OTHER SURGICAL HISTORY 11/02/2022 Left PROCEDURE: SC THORACOSCOPY W/THERA WEDGE RESEXN INITIAL UNILAT; COMMENT: LLL Medical History Medical History Date Comments Adenocarcinoma of rectum (CM S/HCC V24, CMS/HCC V28) DX:Adenocarcinoma of rectum (HCC) Chronic pain syndrome DX:Chronic pain syndrome GERD (gastroesophageal reflux disease) DX:GERD (gastroesophageal reflux disease) Sacroiliitis (CMS/HCC V24) DX:Sa croiliitis (HCC) Tubular adenoma DX:Tubular adeno ma Perianal [...] Influencers of Health Screening 07/22/2023 Influenza Vaccine (Season Ended) 2025 HIB Vaccines Aged Out No longer eligi [...] age to complete this topic Meningococcal B Vaccine Aged Out No l onger eligible based on patient's age to complete this topic RSV Immunization Patients Un kailey 20 months Aged Out No longer eligible b ased on patient's age to complete this topic Varicella Vaccines Aged Out No longer eligible based on patient's age to complete this topic Care Teams Idea Worker Relationship Specialty Start Date End Date Ky Lin MD [address] [place] [address] Dr [address] [place] PCP - General 10/11/22
--- OUTSIDE RECORDS SUMMARY | 2024-10-17 15:08 | XMS_ITS | Encounter Summary ---
Author Organization [facility] Address [address] [place] [address] [address] [place] [address] Care Team Providers Care Eyewear Manufacturing Supervisor Name Role Phone Unavailable Primary Care Provider Unavailabl e Reason for Visit * Reason Onset Date Comments missed call 06/14/2024 Encounter Details Date Type Department Care Team (Late st Contact Info) Description 06/14/2024 Telephone [facility] ADULT DENTAL [address] [place], [place] [phone] Alessandro Mcmahon DMD [address] [place], [place] [phone] missed call Social History Tobacco Use Types [...] documented in this encounter Plan of Treatment Upcoming Encounters Date Type Department Care Team (Late st Contact Info) Description 10/25/2024 11:00 AM EDT Office Visit [facility] ADULT DENTAL [address] [place] [address] Rizwana Worthy documented as of this encounter Visit Diagnoses Not on filedocumented in this encounter
== END 2024-10-17 13:18 | disposition home or self-care (01) ==
LOC: HO.HGS 12:52
PROVIDERS: PCP Internal Medicine; Visit Provider Surgery
DX: Z85.048 Personal history of other malignant neoplasm of rectum, rectosigmoid junction, and anus (principal)
CPT/HCPCS: 99213

== ENCOUNTER → 2024-10-17 12:51 | Outpatient (BNVA) | payer MEDICARE, MEDICAID, SELFPAY | PROVIDERS: PCP Internal Medicine; Visit Provider Surgery | DX: Z85.048 Personal history of other malignant neoplasm of rectum, rectosigmoid junction, and anus (principal) | CPT/HCPCS: 99212 ==

== ENCOUNTER 2024-12-20 12:04 | Outpatient (REF) | payer MEDICARE, MEDICAID, SELFPAY ==
[2024-12-20 14:59] LABS: Alanine Aminotransferase 77 U/L (0-31); Albumin Level 4.9 g/dL (3.5-5.0); Alkaline Phosphatase 69 U/L (39-117); Anion Gap 18 (12-20); Aspartate Amino Transferase 135 U/L (5-31); Bilirubin Total 0.8 mg/dL (0.0-1.0); Blood Urea Nitrogen 5 mg/dL (9-16); Calcium 9.6 mg/dL (8.4-10.2); Carbon Dioxide 22 mmol/L (22-29); Chloride 102 mmol/L (96-108); Estimated Glomerular Filt Rate > 60; Gamma Glutamyl Transpeptidase 304 U/L (7-33); Glucose Random 113 mg/dL (60-115); Potassium 3.2 mmol/L (3.3-5.1); Sodium 139 mmol/L (135-145); Total Protein 8.5 g/dL (6.5-8.0)
[2024-12-20 15:25] LABS: Folate > 20.0 ng/mL (> or = 4.0); Vitamin B12 232 pg/mL (200-900)
[2024-12-21 08:28] LABS: HBS Num1 1.67 mIU/mL (0-7.99); HBc Num1 0.26 S/CO (0.00-0.79); HBsAGNum1 0.45 S/CO (0.00-0.99); Hepatitis A Antibody IgM 0.18 Index (0-0.79); Hepatitis B Core Antibody Nonreactive (Nonreactive); Hepatitis B Surface Antigen Negative (Negative); ~HepC Num1 0.09 S/CO (0.00-0.79); ~Hepatitis A Antibody IgM Nonreactive (Nonreactive); ~Hepatitis B Surface Antibody NONREACTIVE (Nonreactive); ~Hepatitis C Antibody Nonreactive (Nonreactive)
== END 2024-12-20 12:05 | disposition home or self-care (01) ==
LOC: HO.LAB 12:04
PROVIDERS: PCP Internal Medicine; Visit Provider Internal Medicine
DX: M46.1 Sacroiliitis, not elsewhere classified (principal); M25.552 Pain in left hip; M54.16 Radiculopathy, lumbar region; C20 Malignant neoplasm of rectum; C78.00 Secondary malignant neoplasm of unspecified lung; R79.89 Other specified abnormal findings of blood chemistry; K21.9 Gastro-esophageal reflux disease without esophagitis; F41.9 Anxiety disorder, unspecified; E55.9 Vitamin D deficiency, unspecified
CPT/HCPCS: 36415; 80053; 82607; 82746; 82977; 85652; 86704; 86706; 86709; 86803; 87340; 96127; 99212

== ENCOUNTER 2024-12-20 12:04 | Outpatient (AMB) | payer MEDICARE, MEDICAID, SELFPAY ==
[2024-12-20 12:14] VITALS: BP 128/68; PULSE 78; O2SAT 99
--- NOTE | 2024-12-20 12:14 | MHC.PC.OV ---
Vital Signs 12/20/24 12:14 Height 5 ft 1 in Weight 106 lb BMI 20.0 BP 128/68 Blood Pressure Location Lt brachial Position Sitting Pulse 78 Pulse Source Pulse Oximeter Pulse Oximetry (%) 99 Oxygen Delivery Method Room Air Intake Visit Reasons: 3 month f/u Allergies gabapentin Adverse Reaction (Unknown, Verified 12/20/24 12:28) dizziness, lightheadedness ibuprofen Adverse Reaction (Unknown, Verified 12/20/24 12:28) nausea and vomiting Medication List - Last Reconciled 12/20/24 by Ky Lin MD barium sulfate 2%(w/v) (Readi-Cat 2) 450 mL PO BID cholecalciferol (vitamin D3) 50 mcg PO FR cyanocobalamin (vitamin B-12) 1,000 mcg PO DAILY folic acid 1 mg PO DAILY 90 days hydrocortisone 2.5% 1 appl [place] BEDTIME PRN megestrol 800 mg (20 mL) PO DAILY naproxen 500 mg PO Q12H PRN omeprazole 20 mg PO DAILY@0630 90 days oxycodone 10 mg PO Q8H PRN 10 days peg 3350-electrolytes 236-22.74-6.74 -5.86 gram (Golytely) 240 mL PO Q10M potassium chloride ER 20 mEq (2 x 10 mEq) PO DAILY Tobacco use date assessed: 07/27/24 Dental Screening Dental Screen Date: 07/27/24 HPI 3 month f/u HPI Details Patient comes in today for her follow up visit States that she feels okay She denies any headaches or dizziness Denies any chest pains, no shortness of breath No nausea/vomiting, no abdominal pain No change in bowel habits noted Patient states that she continues to experience chronic pain in her left hip as well as inside her pelvic area and over her lower back and still requires opioids to help manage her chronic pain She also continues to experience frequent numbness and tingling sensation in her extremities, which are likely due to neuropathy as a result of her previous chemotherapy She had some follow up labs done back in August 2024 (ordered by Dr. 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 pylori infection Chronic pain syndrome Sacroiliitis Lumbar back pain with radiculopathy affecting left lower extremity Surgical History History of lung surgery (~2022) History of colonoscopy History of tubal ligation (~1999) History of hemorrhoidectomy (~2007) History of low anterior resection of rectum (~07/2021) History of reversal of ileostomy (~12/2021) S/P anal fissurectomy (~2008) History of bursectomy (~2013) History of nasal polypectomy History of esophagogastroduodenoscopy (EGD) Family History Mother Diabetes HTN (hypertension) Father Diabetes Heart attack Brother Diabetes Heart problem HTN (hypertension) Maternal Aunt Breast cancer Sister Uterus cancer Maternal Aunt Breast cancer Mother Lung cancer Other Mental health disorder Social History Household Members: Significant Other Housing: House Are you a primary managed care provider to a significant other at home: No Do you presently have visiting nurse or other home services: No Alcohol intake: never Patient Tobacco Use Status: Former Tobacco user Tobacco use type: Cigarette e-Cigarette/Vaping Use: Never Used Second Hand Smoke Exposure: Yes service: No Current occupational status: unemployed and disabled Cognitive needs: No Hearing needs: No Vision needs: No Questionnaire PHQ-9 Over the last 2 weeks, how often have you been bothered by any of the following problems? 1. Little interest or pleasure in doing things: nearly every day 2. Feeling down, depressed, or hopeless: not at all 3. Trouble falling or staying asleep, or sleeping too much: not at all 4. Feeling tired or having little energy: more than half the days 5. Poor appetite or overeating: more than half the days 6. Feeling bad about yourself - or that you are a failure or have let yourself or your family down: not at all 7. Trouble concentrating on things, such as reading the newspaper or watching television: not at all 8. Moving or speaking so slowly that other people could have noticed. Or the opposite - being so fidgety or restless that you have been moving around a lot more than usual: not at all 9. Thoughts that you would be better off or of hurting yourself in some way: not at all Total score: 7 Depression Screening Interpretation: Positive Depression Screening Follow-up: Existing condition and Follow-up Visit Requested Depression Screening Done: Yes 00266 - PHQ-9 Billing: Yes Source: Developed by Drs. Chilango Rios, Ana aCsh, Ziggy Rios and colleagues, with an educational eleuterio from [employer]. Thrive Questionnaire Date Thrive assessed: 12/20/24 I am a: Patient What is your living situation today?: I have a steady place to live Within the past 12 months, did the food you bought not last and you didn't have the money to get more?: Never true Within the past 12 months, did you worry whether your food would run out before you got money to buy more?: Never true Do you have trouble paying for medicines?: No Do you have trouble getting transportation to medical appointments?: No Do you have trouble paying your heating and electricity bill?: No Do you have trouble taking care of your child, family member or friend?: No Do you have trouble with day-to-day activities such as bathing, preparing meals, shopping, managing finances, etc.?: No Are you currently unemployed and looking for a job?: I choose not to answer this question Are you interested in more education?: No Please select the resources that you would like help with: None Currently or been in a relationship where the following occur: No concerns reported THRIVE Score: 0 AUDIT C Alcohol Use Questionnaire (AUDIT-C) 1. How often do you have a drink containing alcohol?: Never 3. How often do you have six or more drinks on one occasion?: Never Total Score: 0 Score Reviewed/Action Taken: Yes TACHO-7 AMB Questionnaire TACHO-7 Date TACHO - 7 assessed: 07/27/24 Feeling nervous, anxious, or on edge: 0 = Not at all Not being able to stop or control worryin = Not at all Worrying too much about different things: 0 = Not at all Trouble relaxin = Not at all Being so restless that it is hard to sit still: 2 = More than half the days Becoming easily annoyed or irritable: 0 = Not at all Feeling afraid as if something awful might happen: 0 = Not at all Total TACHO-7 score (0-4 normal; 5-9 mild; 10-14 moderate; 15-21 severe): 2 Source: Developed by Drs. Chilango Rios, Ana Cash, Ziggy Rios and colleagues, with an educational eleuterio from [employer]. Review of Systems Const Denies chills, Reports fatigue, Denies fever(s) and Denies headache(s) ENT Denies dysphagia, Denies dizziness, Denies otalgia, Denies headache(s), Denies neck pain, Denies odynophagia and Denies sore throat Card Denies chest pain, Denies palpitations and Denies dyspnea Resp Denies chest congestion, Denies cough and Denies dyspnea GI Details: (+) recurrent rectal burning sensation; (+) recurrent perirectal pain over the past few months Denies abdominal pain, Denies constipation, Denies dysphagia, Denies heartburn, Denies diarrhea, Denies nausea, Denies odynophagia and Denies vomiting Details: c/o deep pelvic pain - S/P low anterior resection of rectum in 07/2021 Denies difficulty voiding, Denies nocturia, Denies dysuria and Denies urinary urgency Musc Reports back pain (over the lower back - chronic), Reports arthralgias (left hip - chronic; left foot (from her fall yesterday)), Denies neck pain, Reports numbness (in the extremities) and Reports tingling (in the extremities) Skin/Breast Denies rash Neuro Denies dizziness, Denies headache(s), Reports numbness (in the extremities) and Reports tingling (in the extremities) Endo Reports fatigue and Denies palpitations Physical exam (Primary Care) Vital Signs: Last Vital Signs Pulse 78 12/20/24 12:14 BP 128/68 12/20/24 12:14 Pulse Ox 99 12/20/24 12:14 Oxygen Delivery Method Room Air 12/20/24 12:14 BMI result Body Mass Index 20.0 Tobacco/Smoking Status: Tobacco use Status Tobacco use date assessed 07/27/24 12/20/24 12:18 Patient Tobacco Use Status Former Tobacco user 12/20/24 12:18 Tobacco use type Cigarette 12/20/24 12:18 e-Cigarette/Vaping Use Never Used 12/20/24 12:18 PHQ-9: PHQ-9 Score PHQ-9: Total score 7 12/20/24 12:31 Depression Screening Interpretation: Positive Depression Screening Follow-up: Existing condition and Follow-up Visit Requested Thrive Assessment: Date of Thrive Assessment Date Thrive assessed 07/27/24 12/20/24 12:18 Currently or been in a relationship where the following occur: No concerns reported Const General: no acute distress and alert HENMT Throat: Yes posterior oropharynx normal and Yes tonsils normal (no TP congestion) Neck Neck: Yes supple and No lymphadenopathy Thyroid: Thyroid normal Resp Auscultation: clear to auscultation bilaterally, no rales and no wheezes Cardio Rate: regular rate Rhythm: regular rhythm Heart sounds: no murmurs GI Palpation (GI): Soft to palpation and nontender Auscultation: normal bowel sounds General: Yes no CVA tenderness Back/Spine/Pelvis Back: no CVA tenderness Thoracic/Lumbar Spine: lumbar spinal tenderness Skin Rashes: no rashes Extrem General: Yes no clubbing, cyanosis or edema Left lower extremity: foot (L foot is currently in an orthopedic boot) Details: tenderness Location: of the lateral foot Location: at the base of the 5th metatarsal Results Reviewed Results Reviewed: Laboratory Tests 08/28/24 10:35 WBC 4.5 L Hgb 13.0 Hct 37.7 Plt Count 271 Sodium 141 Potassium 3.9 Creatinine 0.95 Estimated GFR > 60 Random Glucose 127 H Calcium 9.5 AST 110 H ALT 113 H Coding Level of Care Code Est Pt Level 4 (90500) Diagnoses Osteoarthritis of sacroiliac joint M46.1 Left hip pain M25.552 Lumbar back pain with radiculopathy affecting left lower extremity M54.16 Adenocarcinoma of rectum C20 Rectal cancer metastasized to lung C20; C78.00 Elevated LFTs R79.89 Gastroesophageal reflux disease, unspecified whether esophagitis present K21.9 Esophagitis presence: esophagitis presence not specified Vitamin D deficiency E55.9 Anxiety F41.9 Additional Codes PHQ-9 - 31895 - PHQ-9 Billing: Yes ([id number]) Assessment & Plan Assessment & Plan (1) Osteoarthritis of sacroiliac joint: Code(s): M46.1 - Sacroiliitis, not elsewhere classified Category: Medical Plan: X-rays of the SI joints done back in November 2023 revealed (+) moderate degenerative changes bilateral sacroiliac joints States that her current Rx are helping with the pain for now Have advised her of the option of going back to pain management for this later on if her pain persists (2) Left hip pain: Code(s): M25.552 - Pain in left hip Category: Medical Plan: Left hip x-rays done back in November 2023 revealed again a sclerotic focus overlying the left femoral neck possibly representing a bone lesion such as a bone island versus soft tissue calcification Follow up with orthopedics as scheduled (3) Lumbar back pain with radiculopathy affecting left lower extremity: Code(s): M54.16 - Radiculopathy, lumbar region Category: Medical Plan: Reinforced activity and weight-lifting restrictions She was seeing Pain Management for follow-up previously and was considering other treatment options, including intrathecal delivery system, but these were all put on hold when she was diagnosed with rectal cancer a couple of years ago She had an appointment with Dr. Aguilar on 06/29/22 but she reportedly overslept and missed her appt then and has not been back to see pain management since Continue Oxycodone 10 mg Q 8 hours PRN for now Have advised her of the option of referring her back to pain management once her cancer is completely cleared up and she is a little further out from her overall diagnosis and treatment (4) Adenocarcinoma of rectum: Onset Date: ~2020 Comment: (Invasive Adenocarcinoma - s/p resection 07/31/21, radiation and Xeloda - mets to lung s/p LLL wedge 10/2022) Code(s): C20 - Malignant neoplasm of rectum Category: Medical Plan: S/P surgical (low anterior) resection and loop ileostomy by Dr. Hackett at [facility] in [place] on 07/31/2021; she later underwent ileostomy reversal on 01/08/2022 also at [facility] She completed radiation therapy and Xeloda in 11/2021; she was then treated with modified FOLFOX 6 but repeat imaging studies last year showed (+) lung mets for which she underwent wedge resection and also completed adjuvant chemotherapy Follow up with oncology (Dr. Macdonald) as scheduled (5) Rectal cancer metastasized to lung: Onset Date: ~2020 Comment: (Adenocarcinoma - s/p resection 07/31/21, radiation and Xeloda - met to lung s/p LLL wedge 10/2022) Code(s): C20 - Malignant neoplasm of rectum; C78.00 - Secondary malignant neoplasm of unspecified lung Category: Medical Plan: This was first noted incidentally on abdominal and pelvic CT done in July [address] done on 09/07/2022 confirmed the 1.5 cm left lower lobe lung mass with weak FDG activity, suspicious for malignancy S/P VATS and wedge resection by Dr Neil in October 2022 She was tarted on FOLFIRI with Avastin on 02/09/2023 and she completed adjuvant chemotherapy in late June [address] on 09/07/2023 and bone scan done a few weeks ago have so far shown no evidence of recurrence of her cancer She had follow up CTs done again in January 2024, which revealed no evidence of metastases Follow up with oncology as scheduled (6) Elevated LFTs: Code(s): R79.89 - Other specified abnormal findings of blood chemistry Category: Medical Plan: Results of her labs done a few months ago reviewed and discussed with patient - her LFTs were significantly elevated back then Abdominal CT done in September 2024 came out normal Will recheck her labs and LFTs CLEMENT for follow up; will also include a hepatitis profile for further evaluation (7) Gastroesophageal reflux disease: Code(s): K21.9 - Gastro-esophageal reflux disease without esophagitis Category: Medical Qualifiers: Esophagitis presence: esophagitis presence not specified Qualified Code(s): K21.9 - Gastro-esophageal reflux disease without esophagitis Plan: Dietary restrictions reinforced Continue Omeprazole 20 mg QD (8) Vitamin D deficiency: Code(s): E55.9 - Vitamin D deficiency, unspecified Category: Medical Plan: Continue Vitamin D3 2000 units QD (9) Anxiety: Code(s): F41.9 - Anxiety disorder, unspecified Category: Medical Plan: Continue Hydroxyzine 25 mg BID PRN Plan Follow up in 3 months Orders: Orders Gamma Glutamyl Transpeptidase 12/20/24 R79.89 - Other specified abnormal findings of blood chemistry Hepatitis A,B,C Profile 12/20/24 R79.89 - Other specified abnormal findings of blood chemistry Vitamin B12 and Folate 12/20/24 E53.8 - Deficiency of other specified B group vitamins Comprehensive Met. Panel 12/20/24 R79.89 - Other specified abnormal findings of blood chemistry Erythrocyte Sedimentation Rate 12/20/24 M79.606 - Pain in leg, unspecified
--- OUTSIDE RECORDS SUMMARY | 2024-12-20 14:27 | XMS_ITS | Encounter Summary ---
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
== END 2024-12-20 12:39 | disposition home or self-care (01) ==
LOC: HO.HMCH 12:05
PROVIDERS: PCP Internal Medicine; Visit Provider Internal Medicine
DX: C20 Malignant neoplasm of rectum (principal); C78.00 Secondary malignant neoplasm of unspecified lung; M46.1 Sacroiliitis, not elsewhere classified; M25.552 Pain in left hip; M54.16 Radiculopathy, lumbar region; R79.89 Other specified abnormal findings of blood chemistry; K21.9 Gastro-esophageal reflux disease without esophagitis; E55.9 Vitamin D deficiency, unspecified; F41.9 Anxiety disorder, unspecified

== ENCOUNTER 2025-01-02 06:56 | Day surgery (SDC) | payer MEDICARE, MEDICAID, SELFPAY ==
--- OUTSIDE RECORDS SUMMARY | 2024-12-18 13:42 | XMS_ITS | Encounter Summary ---
Author Organization [employer] Address [address] [place] [address] Care Team Providers Care Supplier Diversity Director Name Role Phone Unavailable Primary Care Provider Unavailabl e Reason for Visit * Reason Onset Date Comments missed call 06/14/2024 Encounter Details Date Type Department Care Team (Late st Contact Info) Description 06/14/2024 Telephone [facility] ADULT DENTAL [address] [place] [address] Alessandro Mcmahon, VLADIMIR [address] [place] [address] missed call Social History Tobacco Use Types [...]
--- NOTE | 2025-01-01 08:43 | P.CONAN_ITS ---
Documented by User: Ana Birch NP 01/01/25 08:50 HPI - Anesthesia Eval Consult details Narrative: 54yo F for Colonoscopy Port in situ (rectal CA s/p resection, mets to lung s/p LLL wedge resect 2022) PMFSH Active Problems Active Problems: All Active Problems Leg pain (Acute) Elevated LFTs (Acute) Bone island of left femur (Acute) Nondisplaced fracture of fifth left metatarsal bone (Acute) Trochanteric bursitis, left hip (Acute) External hemorrhoids with complication (Acute) Microscopic hematuria (Acute) Pelvic pain (Acute) Breast pain, left (Acute) Well woman exam (Acute) Left hip pain (Acute) Contusion of left foot (Acute) Anxiety (Acute) Mononeuropathy, unspecified (Acute) Left ovarian cyst (Acute) Adenocarcinoma of rectum (Acute ~2020) Osteoarthritis of sacroiliac joint (Acute) Rectal pain (Acute) History of rectal cancer (Acute) Rectal cancer metastasized to lung (Acute ~2020) Personal history of nicotine dependence (Acute) Tubular adenoma (Acute) H. pylori infection (Acute) Gastroesophageal reflux disease (Acute) Perianal dermatitis (Acute) Vitamin D deficiency (Acute) Chronic pain syndrome (Acute) Sacroiliitis (Acute) Lumbar back pain with radiculopathy affecting left lower extremity (Acute) Past Medical History Medical History External hemorrhoids with complication Port-A-Cath in place Osteoarthritis of sacroiliac joint Rectal pain History of rectal cancer Rectal cancer metastasized to lung (~2020) Mass of left lung Intractable pain Personal history of nicotine dependence Perianal dermatitis Vitamin D deficiency ASCUS with positive high risk HPV cervical Gastroesophageal reflux disease Tubular adenoma H. pylori infection Chronic pain syndrome Sacroiliitis Lumbar back pain with radiculopathy affecting left lower extremity Family History Family History Mother Diabetes HTN (hypertension) Father Diabetes Heart attack Brother Diabetes Heart problem HTN (hypertension) Maternal Aunt Breast cancer Sister Uterus cancer Maternal Aunt Breast cancer Mother Lung cancer Other Mental health disorder Family history of problems with anesthesia: No Surgical History Surgical History History of lung surgery (~2022) History of colonoscopy History of tubal ligation (~1999) History of hemorrhoidectomy (~2007) History of low anterior resection of rectum (~07/2021) History of reversal of ileostomy (~12/2021) S/P anal fissurectomy (~2008) History of bursectomy (~2013) History of nasal polypectomy History of esophagogastroduodenoscopy (EGD) History of Problems with Anesthesia: No Social History Social History Household Members: Significant Other Housing: House Are you a primary home child care provider to a significant other at home: No Do you presently have visiting nurse or other home services: No Alcohol intake: never Patient Tobacco Use Status: Former Tobacco user Tobacco use type: Cigarette e-Cigarette/Vaping Use: Never Used Second Hand Smoke Exposure: Yes Have you been hit, kicked, punched, or otherwise hurt by someone within the past year? If so, by whom?: No Are you DNR?: No Advance Directives: No Advance Directives Information Provided: Yes service: No Current occupational status: unemployed and disabled Cognitive needs: No Hearing needs: No Vision needs: No Meds Allergies Allergy/AdvReac Type Severity Reaction Status Date / Time gabapentin AdvReac Unknown dizziness, Verified 12/20/24 12:28 lightheadedness ibuprofen AdvReac Unknown nausea and Verified 12/20/24 12:28 vomiting Home Medications ?Medication ?Instructions ?Recorded ?Confirmed ?Last Taken ?Type cyanocobalamin (vitamin B-12) 1,000 mcg PO DAILY 01/1012/31/24 10/29/22 History 1,000 mcg tablet cholecalciferol (vitamin D3) 50 50 mcg PO FR 10/29/22 12/31/24 10/29/22 History mcg (2,000 unit) capsule Exam Height,Weight and Vital Signs: Height 5 ft 1 in Weight 48.081 kg Pertinent Lab Results Pertinent Lab Results: Laboratory Tests 08/28/24 12/20/24 10:35 13:02 WBC 4.5 L Hgb 13.0 Hct 37.7 Plt Count 271 Sodium 139 Potassium 3.2 L Chloride 102 Carbon Dioxide 22 BUN 5 L Creatinine 0.74 Assessment and Plan Assessment Anesthesia Assessment: Chart Reviewed Final Anesthetic Review Family History of Problems with Anesthesia: No History of Problems with Anesthesia: No Documented by User: Augie Pena MD 01/02/25 08:48 [facility] Past Medical History Medical History External hemorrhoids with complication Port-A-Cath in place Osteoarthritis of sacroiliac joint Rectal pain History of rectal cancer Rectal cancer metastasized to lung (~2020) Mass of left lung Intractable pain Personal history of nicotine dependence Perianal dermatitis Vitamin D deficiency ASCUS with positive high risk HPV cervical Gastroesophageal reflux disease Tubular adenoma H. pylori infection Chronic pain syndrome Sacroiliitis Lumbar back pain with radiculopathy affecting left lower extremity Family History Family History Mother Diabetes HTN (hypertension) Father Diabetes Heart attack Brother Diabetes Heart problem HTN (hypertension) Maternal Aunt Breast cancer Sister Uterus cancer Maternal Aunt Breast cancer Mother Lung cancer Other Mental health disorder Surgical History Surgical History History of lung surgery (~2022) History of colonoscopy History of tubal ligation (~1999) History of hemorrhoidectomy (~2007) History of low anterior resection of rectum (~07/2021) History of reversal of ileostomy (~12/2021) S/P anal fissurectomy (~2008) History of bursectomy (~2013) History of nasal polypectomy History of esophagogastroduodenoscopy (EGD) Social History Social History Household Members: Significant Other Housing: House Are you a primary home child care provider to a significant other at home: No Do you presently have visiting nurse or other home services: No Alcohol intake: never Patient Tobacco Use Status: Former Tobacco user Tobacco use type: Cigarette e-Cigarette/Vaping Use: Never Used Second Hand Smoke Exposure: Yes Have you been hit, kicked, punched, or otherwise hurt by someone within the past year? If so, by whom?: No Are you DNR?: No Advance Directives: No Advance Directives Information Provided: Yes service: No Current occupational status: unemployed and disabled Cognitive needs: No Hearing needs: No Vision needs: No Meds Allergies Allergy/AdvReac Type Severity Reaction Status Date / Time gabapentin AdvReac Unknown dizziness, Verified 12/20/24 12:28 lightheadedness ibuprofen AdvReac Unknown nausea and Verified 12/20/24 12:28 vomiting Home Medications ?Medication ?Instructions ?Recorded ?Confirmed ?Last Taken ?Type cyanocobalamin (vitamin B-12) 1,000 mcg PO DAILY 01/1012/31/24 10/29/22 History 1,000 mcg tablet cholecalciferol (vitamin D3) 50 50 mcg PO FR 10/29/22 12/31/24 10/29/22 History mcg (2,000 unit) capsule Exam Airway Mallampati Class: II TM Dist: >3cm Neck ROM: Full Partial: Upper Heart: ok Lungs: ok Assessment and Plan Assessment Anesthesia Assessment: Anesthesia Plan Discussed Final Anesthetic Review NPO: Yes ASA Class: III Final Preanesthetic Review: No Changes in Pt Med Stat, Meds/Allgs Chart Reviewed, Consent Obtained/Reviewed and Anes Risks/Benef Reviewed Patient Risk: Intermediate Procedure Risk: Low Anesthetic Plan Anesthetic Plan: MAC: and Agree w/ Assess. and Plan Disposition: Standard PACU
[2025-01-02 07:07] VITALS: BP 136/83; PULSE 97; RESP 18; TEMP 36.3; O2SAT 98; BMI 19.5
[2025-01-02] MEDS: Lactated Ringers 1,000 ML 100 ML IVCONT (07:29)
--- NOTE | 2025-01-02 08:35 | P.HPSUR_ITS ---
Pre-Procedural Eval Section A - 24 Hr Update-Section A only Date of Service: 01/02/25 Section B - Complete if H&P > 30 days Chief Complaint: Encounter for screening for malignant neoplasm of Relevant Family History (Specify if Yes): No Relevant Social History: None Present Medications: see Short Stay Collaborative assessment Medical History: Significant History (External hemorrhoids with complication P ort-A-Cath in place Osteoarthritis of sacroiliac joint Rectal pain History of rectal cancer Rectal cancer metastasized to lung (~2020) Mass of left lung Intractable pain Personal history of nicotine dependence Perianal dermatitis Vitamin D deficiency ASCUS wit) History of Previous Operations: Relevant previous surgery/procedure and date(s) (History of lung surgery (~2022) History of colonoscopy History of tubal ligation (~1999) History of hemorrhoidectomy (~2007) History of low anterior resection of rectum (~07/2021) History of reversal of ileostomy (~12/2021) S/P anal fissurectomy (~2008) History of bursectomy (~2013) History of nasal) Allergies: Allergies Allergy/AdvReac Type Severity Reaction Status Date / Time gabapentin AdvReac Unknown dizziness, Verified 12/20/24 12:28 lightheadedness ibuprofen AdvReac Unknown nausea and Verified 12/20/24 12:28 vomiting Review of Systems Sugical H&P ROS: Negative: Constitution, Cardiovascular, Respiratory, Neurological, Psychiatric, Hem-Onc, Allergic/Immunologic, Gastrointestinal, Gen itourinary, Musculoskeletal, Integumentary, Endocrine and Eyes/Ears/Nose/Throat Exam Surgical H&P Exam: Normal: HEENT, Normal: Heart, Normal: Lungs, Normal: Extremities, Normal: Abdomen, Normal: Skin and Normal: Neurological Plan Diagnosis/Plan: Unchanged I have reviewed the history and physical and performed a pertinent physical examination on my patient. No changes have occurred unless specified. Time Spent With Patient Time: Total time managing care of this patient today ____ minutes.
--- NOTE | 2025-01-02 08:58 | P.OPN-COLO_ITS ---
Colonoscopy Operative Note Operative Note Date of Service: 01/02/25 Narrative: Operative Information Procedure Description: Colonoscopy Indication: hx of rectal cancer-surveillance Anesthesia: MAC COLONOSCOPY Instrument: Olympus variable stiffness pediatric scope 190L Colonoscopy Monitoring: Vital signs and clinical assessment, continuous EKG monitoring, Pulse oximetry, Carbon Dioxide monitoring and blood pressure monitoring were done throughout the procedure. Colon withdrawal time was 8 minutes. Procedure: The patient was placed in the left lateral decubitis position and pre-procedure medications were administered. After a digital rectal examination of the ano-rectum, the video colonoscope was inserted into the rectum and advanced through the colon to the cecum/TI. The colonoscope was slowly withdrawn in a retrograde panoramic fashion and the colon mucosa was carefully examined including a retroflexed view of the rectum. Findings and interventions are described below. Procedure Difficulty: easy Findings: Terminal Ileum-normal Cecum:normal right sided retroflexion- normal Ascending Colon: normal Transverse Colon -normal Descending Colon:normal Sigmoid Colon: moderate diverticulosis Rectum:normal, tight unable to retroflex Anorectum - normal Intervention: none Colon preparation: [place] Bowel Preparation Scale Right colon; 2 Transverse colon: 2 Left colon; 2 (0 = Unprepared colon segment with mucosa not seen due to solid stool that cannot be cleared. 1 = Portion of mucosa of the colon segment seen, but other areas of the colon segment not well seen due to staining, residual stool and/or opaque liquid. 2 = Minor amount of residual staining, small fragments of stool and/or opaque liquid, but mucosa of colon segment seen well. 3 = Entire mucosa of colon segment seen well with no residual staining, small fragments of stool or opaque liquid) Impression and Post Procedure Diagnosis: diverticulosis Plan: High fiber diet leaflet Avoid straining at stool, epsom salts and sitz bath, anusol supps or cream Repeat Colonoscopy in 2-3 years or earlier if clinically indicated
[2025-01-02 09:03] VITALS: BP 123/71; PULSE 81; RESP 20; TEMP 36.6; O2SAT 100
[2025-01-02 09:17] VITALS: BP 118/68; PULSE 78; RESP 18; TEMP 36.6; O2SAT 98
== END 2025-01-02 09:57 | disposition home or self-care (01) ==
PROVIDERS: PCP Internal Medicine; Visit Provider Internal Medicine Gastroenterology
PROC: 0DJD8ZZ Inspection of Lower Intestinal Tract, Via Natural or Artificial Opening Endoscopic (ICD-10-PCS; CPT 45378; principal; 2025-01-02 08:30)
DX: Z12.11 Encounter for screening for malignant neoplasm of colon (principal); Z85.048 Personal history of other malignant neoplasm of rectum, rectosigmoid junction, and anus; C78.02 Secondary malignant neoplasm of left lung; Z92.21 Personal history of antineoplastic chemotherapy; Z95.828 Presence of other vascular implants and grafts; K57.30 Diverticulosis of large intestine without perforation or abscess without bleeding; K64.4 Residual hemorrhoidal skin tags; L29.0 Pruritus ani; G89.4 Chronic pain syndrome; M47.898 Other spondylosis, sacral and sacrococcygeal region; M46.1 Sacroiliitis, not elsewhere classified; E55.9 Vitamin D deficiency, unspecified; R87.810 Cervical high risk human papillomavirus (HPV) DNA test positive; Z98.51 Tubal ligation status; Z88.6 Allergy status to analgesic agent; Z88.8 Allergy status to other drugs, medicaments and biological substances; Z98.890 Other specified postprocedural states; Z87.891 Personal history of nicotine dependence; Z56.0 Unemployment, unspecified
CPT/HCPCS: G0105; J2003; J2704

== ENCOUNTER → 2025-01-02 06:56 | Outpatient (BNV) | payer MEDICARE, MEDICAID, SELFPAY | PROVIDERS: PCP Internal Medicine; Visit Provider Internal Medicine Gastroenterology | DX: Z12.11 Encounter for screening for malignant neoplasm of colon (principal); K57.90 Diverticulosis of intestine, part unspecified, without perforation or abscess without bleeding; Z85.040 Personal history of malignant carcinoid tumor of rectum | CPT/HCPCS: G0105 ==

== ENCOUNTER 2025-02-07 07:53 | Outpatient (REF) | payer MEDICARE, MEDICAID, SELFPAY ==
--- NOTE | ~2025-02-07 | FL_ITS ---
EXAMINATION: XR PORT INJECTION WITH RADIOLOGICAL SUPERVISION AND INTERPRETATION CLINICAL INFORMATION: Port-A-Cath malfunction. History of chest wall injury. Evaluate for Port-A-Cath function COMPARISON: None available. TECHNIQUE: Following explaining fluoroscopy-guided port catheter injection procedure, a written consent was obtained. Patient was placed supine on fluoroscopy table and skin overlying the Port-A-Cath was cleaned with chlorhexidine solution. A Neely needle connected to iodine contrast was inserted from the skin into the port chamber. Contrast injected under fluoroscopy and fluoroscopy images were obtained . Postprocedure catheter was flushed with normal saline followed by heparin saline and the needle was withdrawn. Simple Band-Aid applied postprocedure. Patient tolerated procedure extremely well. FINDINGS: On accessing the port and injecting IV contrast the entire catheter is patent with no fracture seen. There is contrast seen at the tip of the catheter conforming normal patency of the catheter. The catheter was flushed with a PICC line. FL/FL cva device check w fluoro IMPRESSION: Widely patent port catheter. No catheter fracture or catheter abnormality seen. Fluoroscopy time: 11 seconds. DAP: 104.8 mGy/cm Electronically signed by: Andrew Waldron MD 02/07/2025 09:42 AM EDT
--- OUTSIDE RECORDS SUMMARY | 2025-02-07 07:55 | XMS_ITS | Encounter Summary ---
Author Organization [facility] Address [address] [place] [id number] Phone Care Team Providers Care Per Diem Interpreter Name Role Phone Ky Lin MD Primary Care Provider [phone] Flor Arriaza NP Primary Care Provider [phone] Mckayla Reyes RN Unavailable [phone] Encounter Details Date Type Department Care Team (Late st Contact Info) Description 10/13/2020 Ancillary Orders [facility],Outside Imaging [address], [place] [id number] System, Provider Not In, [place] [address] Social History Tobacco Use Types Packs/Day Years Used Date Smoking Tobacco: Never Assessed Comments Unknown Sex and Gender Information Value Date Recorded Sex Assigned at Not on file Legal Sex Female 10:16 AM EDT Gender Identity Not on file Sexual Orientation Not on file documented as of this encounter Plan of Treatment Not on file documented as of this encounter Results * CT Abdomen/Pelvis Outside (No Interpretation) (10/08/2020 12:00 AM EDT) Narrative SYSTEMGENERATED, DOCUMENTATION - 10/13/2020 11:24 AM EDT This study is for PACS storage only and not for interpretation. us Provider Not In System PhD IMG OUTSIDE IMAGING W /OUT INTERPRETATION Final Result documented in this encounter Visit Diagnoses Not on filedocumented in this encounter Care Teams Per Diem Interpreter Relationship Specialty Start Date End Date Ky Lin MD [address] [place] [address] [address] [place] [address] PCP - General Internal Medicine 10/10/20 07/27/21 Flor Arriaza NP [address] [place] [id number] PCP - General Family Medicine 07/28/21 Mckayla Reyes RN [address] [place] [phone] [email or web address] Registered Nurse 08/19/21 documented as of this encounter Additional Source Comments The information contained in this document represents components of the legal health record. It is not the complete legal health record.[facility]
--- OUTSIDE RECORDS SUMMARY | 2025-02-07 07:55 | XMS_ITS | Clinical Summary ---
Author Organization [facility] [place] Address [id number] [place] [phone] Care Team Providers Care Chief Operator Lock Tender Name Role Phone Ky Lin MD Primary Care Provider Surgical History Surgery Date Site/Laterality Comments COLONOSCOPY N/A PROCEDURE: HISTORICAL COLONOSCOPY ESOPHAGOGASTRODUODENOSCOPY N/A PROCEDURE: [place] ESOPHAGOGASTRODUODENOSCOPY TRANSORAL DIAGNOSTIC OTHER SURGICAL HISTORY N/A PROCEDURE: [place] HEMORRHOIDECTOMY NTRNL & XTRNL 1 COLUMN/GROUP OTHER SURGICAL HISTORY PROCEDURE: WA EXCISION NASAL POLYP SIMPLE TUBAL LIGATION Bilateral PROCEDURE: HISTORICAL TUBAL LIGATION OTHER SURGICAL HISTORY N/A PROCEDURE: WA UNLISTED PROCEDURE RECTUM OTHER SURGICAL HISTORY N/A PROCEDURE: WA FISSURECTOMY INCL SPHINCTEROTOMY WHEN PERFORMED OTHER SURGICAL HISTORY 11/02/2022 Left PROCEDURE: WA THORACOSCOPY W/THERA WEDGE RESEXN INITIAL UNILAT; COMMENT: [...] ars (1 of 2 - PCV) 1988 Zoster Vaccines (1 of 2) 1988 Cervical Cancer Screening: P ap Smear 1990 Colorectal Cancer Screening: Colonoscopy 07/22/2023 HIV Screening 07/22/2023 Hepatitis C Screening 07/22/2023 Social Influencers of Health Screening 07/22/2023 Depression Screening 06/27/2024 Influenza Vaccine (#1) 2025 HIB Vaccines Aged Out No longer [...] age to complete this topic Care Teams Chief Operator Lock Tender Relationship Specialty Start Date End Date Ky Lin MD [address] [place] [address] Dr [address] DAGOBERTO Dahl PCP - General 10/11/22
--- OUTSIDE RECORDS SUMMARY | 2025-02-07 07:55 | XMS_ITS | Encounter Summary ---
Author Organization [employer] Address [address] [place] [address] Care Team Providers Care Healthcare Management Consultant Name Role Phone Unavailable Primary Care Provider Unavailabl e Reason for Visit * Reason Onset Date Comments missed call 06/14/2024 Encounter Details Date Type Department Care Team (Late st Contact Info) Description 06/14/2024 Telephone C ADULT DENTAL [address] [place] [address] Alessandro Mcmahon, VLADIMIR [address] [place] [address] missed call Social History Tobacco Use Types [...]
--- OUTSIDE RECORDS SUMMARY | 2025-02-07 07:55 | XMS_ITS | Patient Health Record ---
Author Organization [facility] Address [address] [place] [id number] Care Team Providers Care Oil Well Services Dispatcher Name Role Phone Sabina(inactive) Marc MAYES Primary Care Provider U Juan Keen Jr Reason For Referral No Information Medications Medication SIG (Take, Route, Frequency, Duration) Notes Start Date End Date Status metroNIDAZOLE 500 MG 1 tablet Orally Twi ce a day for 14 days 12/14/2013 Active Doxycycline Hyclate 100 MG 1 capsule Ora lly Twice a day for 14 days 12/14/2013 Active Bismuth Subsalicylate 262 MG 2 tablets Orally Twice a day for 14 days 12/14/2013 Active Omeprazole 20 MG 1 capsule Orally b.i.d. for 14 days 03/01/2012 Not-Taking metroNIDAZOLE 500 MG 1 tablet Orally Two times a day for 14 days 03/01/2012 Not-Taking Amoxicillin 500 MG 2 capsules Orally b.i.d. for 14 days 03/01/2012 Not-Taking Motrin Active PriLOSEC Active oxyCODONE-Acetaminophen 5-325 MG TAKE 1 TABLET BY MOUTH ONCE A DAY Oral for 030 Active Omeprazole 20 MG 1 capsule Orally Onc e a day for 30 day(s) 10/31/2013 Active Omeprazole 20 MG 1 capsule Orally Twi ce a day for 14 days 12/14/2013 Active Problems Problem Type SNOMED Code ICD Code Onset Dates Problem Status W/U Status Risk Notes Problem Epigastric pain (96318982) Abdominal pain, epigastric (789.06) Active confirmed Plan Of Treatment Pending Test Test Name Order Date IRON + IBC (FE) 02/25/2012 FERRITIN 02/25/2012 CBC w DIFF 08/12/2011 CBC w/o DIFF 02/25/2012 HELICOBACTER PYLORI IGG AB 02/25/2012 CELIAC DISEASE ANTIBODY PANEL 02/25/2012 XR GI SMALL BOWEL SERIES 02/25/2012 Future Test Test Name Order Date UPPER GI ENDOSCOPY 10/31/2013 Insurance Providers Payer Name Payer Address Payer Phone Subscriber Number Group Number Insured Name Patient Relationship to Insured Coverage Start Date Coverage End Date [facility] [address] [facility] [place] [phone] [id number] EARLINE BAE Self - patient is the insured Medical (General) History Medical History History ICD Code back pain anal fissure Denies NC,DM,CVA,Lung disease,renal dise ase Surgical History Surgery Date(Month/Year) tubal legation sinus surgery hemorrhoidectomy sphincterotomy for fissure repair
[2025-02-07] MEDS: iohexoL 300 MG/ML 50 ML INFUS..BTL 10 ML IV (08:33)
== END 2025-02-07 07:54 | disposition home or self-care (01) ==
LOC: HO.XRAY 07:53
PROVIDERS: PCP Internal Medicine; Visit Provider Internal Medicine Medical Oncology
DX: K62.89 Other specified diseases of anus and rectum (principal)
CPT/HCPCS: 36598; Q9967

== ENCOUNTER → 2025-02-07 07:54 | Outpatient (BNV) | payer MEDICARE, MEDICAID, SELFPAY | PROVIDERS: PCP Internal Medicine; Visit Provider Radiology Diagnostic Radiology | DX: Z45.2 Encounter for adjustment and management of vascular access device (principal) | CPT/HCPCS: 36598 ==

== ENCOUNTER 2025-03-22 13:31 | Outpatient (AMB) | payer MEDICARE, MEDICAID, SELFPAY ==
[2025-03-22 13:39] VITALS: BP 104/70; PULSE 88; O2SAT 99; BMI 19.7
--- NOTE | 2025-03-22 13:39 | A.OFFPC_ITS ---
Vital Signs 03/22/25 13:39 Height 5 ft 1 in Weight 104 lb 8 oz BMI 19.7 BP 104/70 Blood Pressure Location Lt brachial Position Sitting Pulse 88 Pulse Source Pulse Oximeter Pulse Oximetry (%) 99 Oxygen Delivery Method Room Air Intake Visit Reasons: Hx rectal CA, neuropathy, elevated LFTs Histology Supervisor Required: No Accompanied by: Self / Same As Patient Allergies gabapentin Adverse Reaction (Unknown, Verified 03/22/25 23:12) dizziness, lightheadedness ibuprofen Adverse Reaction (Unknown, Verified 03/22/25 23:12) nausea and vomiting Medication List - Last Reconciled 03/22/25 by Ky Lin MD cholecalciferol (vitamin D3) 50 mcg PO FR cyanocobalamin (vitamin B-12) 1,000 mcg PO DAILY folic acid 1 mg PO DAILY 90 days megestrol 800 mg (20 mL) PO DAILY omeprazole 20 mg PO DAILY@0630 90 days oxycodone 5 mg PO Q8H 2 days oxycodone 10 mg PO Q8H PRN 10 days potassium chloride ER 20 mEq (2 x 10 mEq) PO DAILY Tobacco use date assessed: 03/22/25 Dental Screening Dental Screen Date: 03/22/25 Did you have a dental visit in the last 12 months?: Yes Did you have a dental problem in the last 6 months where you did not have access to dental care?: No Was dental information given to patient?: Patient has dentist HPI Hx rectal CA, neuropathy, elevated LFTs HPI Details Patient comes in today for her follow up visit States that she continues to experience chronic increased pain in her left hip as well as inside her pelvic area and over her lower back and she still requires opioids to help manage her chronic pain She will need her pain med Rx refilled today She also still has frequent numbness and tingling sensation in her extremities, which are likely due to neuropathy as a result of her previous chemotherapy Notes that she is now also experiencing recurrent burning sensation in her feet that often feels worse at night - would like to see neurology and see if there is anything they can do to help with her symptoms States that she feels okay otherwise She denies any headaches or dizziness Denies any chest pains, no shortness of breath No nausea/vomiting, no abdominal pain No change in bowel habits noted She has no follow up labs done recently [facility] Medical History (Updated 03/22/25 @ 14:10 by Ky Lin MD) Neuropathy External hemorrhoids with complication Port-A-Cath in place Osteoarthritis of sacroiliac joint Rectal pain History of rectal cancer Rectal cancer metastasized to lung (~2020) Mass of left lung Intractable pain Personal history of nicotine dependence Perianal dermatitis Vitamin D deficiency ASCUS with positive high risk HPV cervical Gastroesophageal reflux disease Tubular adenoma H. pylori infection Chronic pain syndrome Sacroiliitis Lumbar back pain with radiculopathy affecting left lower extremity Surgical History History of lung surgery (~2022) History of colonoscopy History of tubal ligation (~1999) History of hemorrhoidectomy (~2007) History of low anterior resection of rectum (~07/2021) History of reversal of ileostomy (~12/2021) S/P anal fissurectomy (~2008) History of bursectomy (~2013) History of nasal polypectomy History of esophagogastroduodenoscopy (EGD) Family History Mother Diabetes HTN (hypertension) Father Diabetes Heart attack Brother Diabetes Heart problem HTN (hypertension) Maternal Aunt Breast cancer Sister Uterus cancer Maternal Aunt Breast cancer Mother Lung cancer Other Mental health disorder Social History Household Members: Significant Other Housing: House Are you a primary direct care staffer to a significant other at home: No Do you presently have visiting nurse or other home services: No Alcohol intake: never Patient Tobacco Use Status: Former Tobacco user Tobacco use type: Cigarette e-Cigarette/Vaping Use: Never Used Second Hand Smoke Exposure: Yes service: No Current occupational status: unemployed and disabled Cognitive needs: No Hearing needs: No Vision needs: No Questionnaire PHQ-9 Over the last 2 weeks, how often have you been bothered by any of the following problems? Depression Screening Interpretation: Positive Depression Screening Follow-up: Existing condition and Follow-up Visit Requested Depression Screening Done: Yes Source: Developed by Drs. Chilango Rios, Ana Cash, Ziggy Rios and colleagues, with an educational eleuterio from [employer]. Thrive Questionnaire Date Thrive assessed: 12/20/24 I am a: Patient What is your living situation today?: I have a steady place to live Within the past 12 months, did the food you bought not last and you didn't have the money to get more?: Never true Within the past 12 months, did you worry whether your food would run out before you got money to buy more?: Never true Do you have trouble paying for medicines?: No Do you have trouble getting transportation to medical appointments?: No Do you have trouble paying your heating and electricity bill?: No Do you have trouble taking care of your child, family member or friend?: No Do you have trouble with day-to-day activities such as bathing, preparing meals, shopping, managing finances, etc.?: No Are you currently unemployed and looking for a job?: I choose not to answer this question Are you interested in more education?: No Please select the resources that you would like help with: None Currently or been in a relationship where the following occur: No concerns reported THRIVE Score: 0 AUDIT C Alcohol Use Questionnaire (AUDIT-C) 1. How often do you have a drink containing alcohol?: Never 3. How often do you have six or more drinks on one occasion?: Never Total Score: 0 Score Reviewed/Action Taken: Yes TACHO-7 AMB Questionnaire TACHO-7 Date TACHO - 7 assessed: 07/27/24 Source: Developed by Drs. Chilango Rios, Ana Cash, Ziggy Rios and colleagues, with an educational eleuterio from [employer]. Review of Systems Const Denies chills, Reports fatigue, Denies fever(s) and Denies headache(s) ENT Denies dysphagia, Denies dizziness, Denies otalgia, Denies headache(s), Denies neck pain, Denies odynophagia and Denies sore throat Card Denies chest pain, Denies palpitations and Denies dyspnea Resp Denies chest congestion, Denies cough and Denies dyspnea GI Details: (+) recurrent rectal burning sensation; (+) recurrent perirectal pain over the past few months Denies abdominal pain, Denies constipation, Denies dysphagia, Denies heartburn, Denies diarrhea, Denies nausea, Denies odynophagia and Denies vomiting Details: c/o deep pelvic pain - S/P low anterior resection of rectum in 07/2021 Denies difficulty voiding, Denies nocturia, Denies dysuria and Denies urinary urgency Musc Reports back pain (over the lower back - chronic), Reports arthralgias (left hip - chronic; left foot (from her fall yesterday)), Denies neck pain, Reports numbness (in the extremities) and Reports tingling (in the extremities) Skin/Breast Denies rash Neuro Denies dizziness, Denies headache(s), Reports numbness (in the extremities) and Reports tingling (in the extremities) Endo Reports fatigue and Denies palpitations Physical exam (Primary Care) Vital Signs: Last Vital Signs Pulse 88 03/22/25 13:39 BP 104/70 03/22/25 13:39 Pulse Ox 99 03/22/25 13:39 Oxygen Delivery Method Room Air 03/22/25 13:39 BMI result Body Mass Index 19.7 Tobacco/Smoking Status: Tobacco use Status Tobacco use date assessed 03/22/25 03/22/25 13:44 Patient Tobacco Use Status Former Tobacco user 03/22/25 13:44 Tobacco use type Cigarette 03/22/25 13:44 e-Cigarette/Vaping Use Never Used 03/22/25 13:44 Depression Screening Interpretation: Positive Depression Screening Follow-up: Existing condition and Follow-up Visit Requested Thrive Assessment: Date of Thrive Assessment Date Thrive assessed 12/20/24 03/22/25 13:44 Currently or been in a relationship where the following occur: No concerns reported Const General: no acute distress and alert HENMT Throat: Yes posterior oropharynx normal and Yes tonsils normal (no TP congestion) Neck Neck: Yes supple and No lymphadenopathy Thyroid: Thyroid normal Resp Auscultation: clear to auscultation bilaterally, no rales and no wheezes Cardio Rate: regular rate Rhythm: regular rhythm Heart sounds: no murmurs GI Palpation (GI): Soft to palpation and nontender Auscultation: normal bowel sounds General: Yes no CVA tenderness Back/Spine/Pelvis Back: no CVA tenderness Thoracic/Lumbar Spine: lumbar spinal tenderness Skin Rashes: no rashes Extrem General: Yes no clubbing, cyanosis or edema Left lower extremity: foot (L foot is currently in an orthopedic boot) Details: tenderness Location: of the lateral foot Location: at the base of the 5th metatarsal Results Reviewed Results Reviewed: Laboratory Tests 01/22/25 14:52 WBC 6.2 Hgb 11.8 L Hct 34.2 L Plt Count 239 Sodium 142 Potassium 3.4 Creatinine 0.73 Estimated GFR > 60 Random Glucose 86 AST 55 H ALT 32 H Coding Level of Care Code Est Pt Level 4 (27742) Diagnoses Neuropathy G62.9 Osteoarthritis of sacroiliac joint M46.1 Left hip pain M25.552 Lumbar back pain with radiculopathy affecting left lower extremity M54.16 Adenocarcinoma of rectum C20 Rectal cancer metastasized to lung C20; C78.00 Elevated LFTs R79.89 Gastroesophageal reflux disease, unspecified whether esophagitis present K21.9 Esophagitis presence: esophagitis presence not specified Vitamin D deficiency E55.9 Anxiety F41.9 Assessment & Plan Assessment & Plan (1) Neuropathy: Code(s): G62.9 - Polyneuropathy, unspecified Category: Medical Plan: Per request, will refer patient to neurology for further management but have advised patient that with her neuropathy, which is likely brought about by her chemotherapy a couple of years ago for her rectal cancer, her condition is likely permanent but there are options that can help manage her symptoms, including medications, lifestyle changes such as regular low-impact exercise and a healthy diet, along with physical and occupational therapy, that can help in not just managing symptoms but improving function With regard to medications, she was not able to tolerate Gabapentin but there are other options like Duloxetine and Amitriptyline that we can try Since she has requested for a neurology referral, I will leave it up to Neurology to help manage her symptoms when they see her (2) Osteoarthritis of sacroiliac joint: Code(s): M46.1 - Sacroiliitis, not elsewhere classified Category: Medical Plan: X-rays of the SI joints done back in November 2023 revealed (+) moderate degenerative changes bilateral sacroiliac joints States that her current Rx are helping with the pain for now Have advised her of the option of going back to pain management for this later on if her pain persists or gets worse (3) Left hip pain: Code(s): M25.552 - Pain in left hip Category: Medical Plan: Left hip x-rays done back in November 2023 revealed again a sclerotic focus overlying the left femoral neck possibly representing a bone lesion such as a bone island versus soft tissue calcification Follow up with orthopedics as scheduled (4) Lumbar back pain with radiculopathy affecting left lower extremity: Code(s): M54.16 - Radiculopathy, lumbar region Category: Medical Plan: Reinforced activity and weight-lifting restrictions She was seeing Pain Management for follow-up previously and was considering other treatment options, including intrathecal delivery system, but these were all put on hold when she was diagnosed with rectal cancer a couple of years ago She had an appointment with Dr. Aguilar on 06/29/22 but she reportedly overslept and missed her appt then and has not been back to see pain management since Continue Oxycodone 10 mg Q 8 hours PRN for now Have advised her of the option of referring her back to pain management in the near future (5) Adenocarcinoma of rectum: Onset Date: ~2020 Comment: (Invasive Adenocarcinoma - s/p resection 07/31/21, radiation and Xeloda - mets to lung s/p LLL wedge 10/2022) Code(s): C20 - Malignant neoplasm of rectum Category: Medical Plan: S/P surgical (low anterior) resection and loop ileostomy by Dr. Hackett at [facility] in [place] on 07/31/2021; she later underwent ileostomy reversal on 01/08/2022 also at [facility] She completed radiation therapy and Xeloda in 11/2021; she was then treated with modified FOLFOX 6 but repeat imaging studies last year showed (+) lung mets for which she underwent wedge resection and also completed adjuvant chemotherapy Follow up with oncology (Dr. Macdonald) as scheduled for continuing surveillance (6) Rectal cancer metastasized to lung: Onset Date: ~2020 Comment: (Adenocarcinoma - s/p resection 07/31/21, radiation and Xeloda - met to lung s/p LLL wedge 10/2022) Code(s): C20 - Malignant neoplasm of rectum; C78.00 - Secondary malignant neoplasm of unspecified lung Category: Medical Plan: This was first noted incidentally on abdominal and pelvic CT done in July [address] done on 09/07/2022 confirmed the 1.5 cm left lower lobe lung mass with weak FDG activity, suspicious for malignancy S/P VATS and wedge resection by Dr Neil in October 2022 She was tarted on FOLFIRI with Avastin on 02/09/2023 and she completed adjuvant chemotherapy in late June [address] on 09/07/2023 and bone scan done a few weeks ago have so far shown no evidence of recurrence of her cancer She had follow up CTs done again in January 2024 and in September 2024, which revealed no evidence of metastases Follow up with oncology as scheduled for continuing surveillance (7) Elevated LFTs: Code(s): R79.89 - Other specified abnormal findings of blood chemistry Category: Medical Plan: Results of her labs done a couple of months ago reviewed and discussed with patient - her LFTs were still elevated then but have improved significantly from earlier this year Abdominal CT done in September 2024 came out normal Her hepatitis profile done back in November 2024 came back negative (8) Gastroesophageal reflux disease: Code(s): K21.9 - Gastro-esophageal reflux disease without esophagitis Category: Medical Qualifiers: Esophagitis presence: esophagitis presence not specified Qualified Code(s): K21.9 - Gastro-esophageal reflux disease without esophagitis Plan: Dietary restrictions reinforced Continue Omeprazole 20 mg QD (9) Vitamin D deficiency: Code(s): E55.9 - Vitamin D deficiency, unspecified Category: Medical Plan: Continue Vitamin D3 2000 units QD (10) Anxiety: Code(s): F41.9 - Anxiety disorder, unspecified Category: Medical Plan: Continue Hydroxyzine 25 mg BID PRN Plan Follow up in 3 months Orders: Referrals Neurology Referral G62.9 - Polyneuropathy, unspecified Medications: Refilled oxycodone Partial Fill upon patient request; refill Rx only when due 10 mg PO Q8H PRN 30 tabs 0RF Breakthrough Pain, Severe 10 days
--- OUTSIDE RECORDS SUMMARY | 2025-03-22 14:52 | XMS_ITS | Encounter Summary ---
Author Organization [facility] Address [address] [place] [address] Phone Care Team Providers Care Parts Chaser Name Role Phone Ky Lin MD Primary Care Provider [phone] Flor Arriaza NP Primary Care Provider [phone] Mckayla Reyes RN Unavailable [phone] Encounter Details Date Type Department Care Team (Late st Contact Info) Description 10/13/2020 Ancillary Orders [facility],Outside Imaging [address] [place], [place] [id number] System, Provider Not In, [place] [address] Social History Tobacco Use Types Packs/Day Years [...] on filedocumented in this encounter Care Teams Parts Chaser Relationship Specialty Start Date End Date Ky Lin MD [address] [place] [address] [address] [place] [address] PCP - General Internal Medicine 10/10/20 07/27/21 Flor Arriaza NP [address] [place] [address] PCP - General Family Medicine 07/28/21 Mckayla Reyes RN [address] [place] [phone] [email or web address] Registered Nurse 08/19/21 documented as of this encounter Additional Source Comments The information contained in this document represents components of the legal health record. It is not the complete legal health record.[facility]
--- OUTSIDE RECORDS SUMMARY | 2025-03-22 14:52 | XMS_ITS | Encounter Summary ---
Author Organization [facility] Address [address] [place] [address] Phone Care Team Providers Care Executive Officer Special Warfare Team Name Role Phone Flor Arriaza BAND BUILDER Primary Care Provider + [phone] Mckayla Reyes RN Unavailable [phone] Encounter Details Date Type Department Care Team (Late st Contact Info) Description 11/11/2021 Procedure Pass [facility] 4 ENDO DEPT 55 [facility], 4th [place] [address] Social History Tobacco Use Types Packs/Day Years Used Date Smoking Tobacco: Former Cigarettes Q uit: 09/2020 Smokeless Tobacco: Never Alcohol Use Standard Drinks/Week Comments Not Currently 0 (1 standard drink = 0.6 oz pur e alcohol) Comments No Sex and Gender Information Value Date Recorded Sex Assigned at Not on file Legal Sex Female 10:16 AM EDT Gender Identity Not on file Sexual Orientation Not on file documented as of this encounter Plan of Treatment Not on file documented as of this encounter Visit Diagnoses Not on filedocumented in this encounter Care Teams Executive Officer Special Warfare Team Relationship Specialty Start Date End Date Flor Arriaza NP [address] [address] PCP - General Family Medicine 07/28/21 Mckayla Reyes, RN [address] [place] [phone] Registered Nurse 08/19/21 documented as of this encounter Additional Source Comments The information contained in this document represents components of the legal health record. It is not the complete legal health record.[facility]
--- OUTSIDE RECORDS SUMMARY | 2025-03-22 14:52 | XMS_ITS | Patient Health Record ---
Author Organization [facility] Address [address] [place] [id number] Care Team Providers Care Seat Builder Name Role Phone Sabina(inactive) Marc MAYES Primary [...] W/U Status Risk Notes Problem Epigastric pain (11603094) Abdominal pain, epigastric (789.06) Active confirmed Plan [...] Insured Coverage Start Date Coverage End Date [facility] [address] [place] [address] [id number] EARLINE BEA Self - patient is the insured Medical (General) History Medical History History ICD Code back pain anal fissure Denies NM,DM,CVA,Lung disease,renal dise ase Surgical History Surgery Date(Month/Year) tubal legation sinus surgery hemorrhoidectomy sphincterotomy for fissure repair
--- OUTSIDE RECORDS SUMMARY | 2025-03-22 14:52 | XMS_ITS | Encounter Summary ---
Author Organization [facility] Address [address] [place] [address] Phone Care Team Providers Care Rubber Roller Grinder Operator Name Role Phone Flor Arriaza MACHINE GROUP LEADER Primary Care Provider + [phone] Mckayla Reyes RN Unavailable [phone] Encounter Details Date Type Department Care Team (Late st Contact Info) Description 11/26/2021 Procedure Pass [facility] 4 ENDO DEPT 55 [facility], 4th [place] [address] Social History Tobacco Use Types Packs/Day Years [...] on filedocumented in this encounter Care Teams Rubber Roller Grinder Operator Relationship Specialty Start Date End Date Flor Arriaza NP [address] [address] PCP - General Family Medicine 07/28/21 Mckayla Reyes, RN [address] [place] [phone] Registered Nurse 08/19/21 documented as of this encounter Additional Source Comments The information contained in this document represents components of the legal health record. It is not the complete legal health record.[facility]
--- OUTSIDE RECORDS SUMMARY | 2025-03-22 14:52 | XMS_ITS | Encounter Summary ---
Author Organization [facility] Address [address] [facility] [place] [address] Phone Care Team Providers Care Transfer Controller Name Role Phone Flor Arriaza PRODUCT INSPECTION SUPERVISOR Primary Care Provider + [phone] Mckayla Reyes RN Unavailable [phone] Encounter Details Date Type Department Care Team ([facility] st Contact Info) Description 08/20/2021 Telephone [facility] [address] [place] [address], 4[address] Floor, [address] [place] [address] Chandler Hackett MD [address] [place] [address] [address] [place] [address] [email or web address] Social History Tobacco Use Types Packs/Day Years [...] on filedocumented in this encounter Care Teams Transfer Controller Relationship Specialty Start Date End Date Flor Arriaza NP [address] [place] [address] PCP - General Family Medicine 07/28/21 Mckayla Reyes RN [address] [place] [phone] [email or web address] Registered Nurse 08/19/21 documented as of this encounter Additional Source Comments The information contained in this document represents components of the legal health record. It is not the complete legal health record.[facility]
--- OUTSIDE RECORDS SUMMARY | 2025-03-22 14:52 | XMS_ITS | Encounter Summary ---
Author Organization [facility] Address [address] [place] [address] Phone Care Team Providers Care Construction Sales Representative Name Role Phone Flor Arriaza ACCOUNTANT BUDGET Primary Care Provider + [phone] Mckayla Reyes RN Unavailable [phone] Encounter Details Date Type Department Care Team (Late st Contact Info) Description 09/16/2021 Procedure Pass [facility] [address] [facility], 4th [place] [address] Social History Tobacco Use Types Packs/Day Years [...] on filedocumented in this encounter Care Teams Construction Sales Representative Relationship Specialty Start Date End Date Flor Arriaza NP [address] [address] PCP - General Family Medicine 07/28/21 Mckayla Reyes, RN [address] [place] [phone] Registered Nurse 08/19/21 documented as of this encounter Additional Source Comments The information contained in this document represents components of the legal health record. It is not the complete legal health record.[facility]
--- OUTSIDE RECORDS SUMMARY | 2025-03-22 14:52 | XMS_ITS | Encounter Summary ---
Author Organization [facility] Address [address] [place] [address] Phone Care Team Providers Care Lay Ups Assembler Name Role Phone Ky Lin MD Primary Care Provider [phone] Flor Arriaza NP Primary Care Provider [phone] Mckayla Reyes RN Unavailable [phone] Encounter Details Date Type Department Care Team (Late st Contact Info) Description 07/20/2021 Procedure Pass [facility] - MRI [address] [facility], 6th [place] [address] Social History Tobacco Use Types Packs/Day Years [...] on filedocumented in this encounter Care Teams Lay Ups Assembler Relationship Specialty Start Date End Date Ky Lin MD [address] [place] [address] Dr [place]em [place]O [place] [address] PCP - General Internal Medicine 10/10/20 07/27/21 Flor Arriaza NP [address] [address] PCP - General Family Medicine 07/28/21 Mckayla Reyes RN [address] [place] [phone] [email or web address] Registered Nurse 08/19/21 documented as of this encounter Additional Source Comments The information contained in this document represents components of the legal health record. It is not the complete legal health record.[facility]
--- OUTSIDE RECORDS SUMMARY | 2025-03-22 14:52 | XMS_ITS | Encounter Summary ---
Author Organization [facility] Address [address] [facility] [address] [place] [address] Phone Care Team Providers Care Ribber Name Role Phone Ky Lin MD Primary Care Provider [phone] Flor Arriaza NP Primary Care Provider +[phone] Mckayla Reyes RN Unavailable +[phone] Encounter Details Date Type Department Care Team (Late st Contact Info) Description 02/02/2021 Procedure Pass MRI, [facility] Imaging - [place] [address] [facility], [address] [place] [id number] Social History Tobacco Use Types Packs/Day Years Used Date Smoking Tobacco: Former Smokeless Tobacco: Never Alcohol Use Standard Drinks/Week [...] on filedocumented in this encounter Care Teams Ribber Relationship Specialty Start Date End Date Ky Lin MD [address] [place] [address] Dr Black Quoc DAGOBERTO [place]ON [address] PCP - General Internal Medicine 10/10/20 07/27/21 Flor Arriaza, LENGTH CONTROL TESTER [address] [place] [address] [id number] PCP - General Family Medicine 07/28/21 Mckayla Reyes, RN [address] [place] [address] [email or web address] Registered Nurse 08/19/21 documented as of this encounter Additional Source Comments The information contained in this document represents components of the legal health record. It is not the complete legal health record.[facility]
--- OUTSIDE RECORDS SUMMARY | 2025-03-22 14:52 | XMS_ITS | Clinical Summary ---
Author Organization [facility] Address [address] [place] [address] Care Team Providers Care Cutting Machine Tender Name Role Phone Ky Lin MD Primary Care Provider Surgical History Surgery Date Site/Laterality Comments COLONOSCOPY N/A PROCEDURE: HISTORICAL COLONOSCOPY ESOPHAGOGASTRODUODENOSCOPY N/A PROCEDURE: CT ESOPHAGOGASTRODUODENOSCOPY TRANSORAL DIAGNOSTIC OTHER SURGICAL HISTORY N/A PROCEDURE: CT HEMORRHOIDECTOMY NTRNL & XTRNL 1 COLUMN/GROUP OTHER SURGICAL HISTORY PROCEDURE: CT EXCISION NASAL POLYP SIMPLE TUBAL LIGATION Bilateral PROCEDURE: HISTORICAL TUBAL LIGATION OTHER SURGICAL HISTORY N/A PROCEDURE: CT UNLISTED PROCEDURE RECTUM OTHER SURGICAL HISTORY N/A PROCEDURE: CT FISSURECTOMY INCL SPHINCTEROTOMY WHEN PERFORMED OTHER SURGICAL HISTORY 11/02/2022 Left PROCEDURE: CT THORACOSCOPY W/THERA WEDGE RESEXN INITIAL UNILAT; COMMENT: [...] age to complete this topic Care Teams Cutting Machine Tender Relationship Specialty Start Date End Date Ky Lin MD [address] [place] [address] Dr [address] DAGOBERTO Dahl PCP - General 10/11/22
--- OUTSIDE RECORDS SUMMARY | 2025-03-22 14:52 | XMS_ITS | Clinical Summary ---
Author Organization [facility] Address [address] [place] [address] Phone Care Team Providers Care Pie Dough Roller Name Role Phone Flor Arriaza NP Primary Care Provider + [phone] Mckayla Reyes RN Unavailable [phone] Allergies Active Allergy Reactions Criticality Noted Date Comments Gabapentin Nausea and/or Vomiting Low 11/04/2020 Upset stomach, dizziness and lightheadedness Ibuprofen Nausea and/or Vomiting Low 11/04/2020 Medications oxyCODONE 10 mg Tab Take 1-1.5 tablets (10-15 mg total) by mouth every 4 (four) hours as needed for moderate pain. Partial fill ok. No driving/alcohol 20 tablet 08/03/19 Active Additional Information Patient not taking.Reported on 05/17/2022 psyllium husk, with sugar, (METAMUCIL) 3.4 gram packet Take 1 packet by mouth as directed. 08/03/19 Active Additional Information Patient not taking.Reported on 05/17/2022 loperamide (IMODIUM A-D) 2 mg tablet Take 1 tablet (2 mg total) by mouth as directed. 08/03/19 Active cyanocobalamin, vitamin B-12, 100 MCG tablet Take 100 mcg by mouth daily. Active folic acid (FOLVITE) 1 MG tablet Take 1 mg by mouth daily. Active famotidine (PEPCID) 20 MG tablet Take 20 mg by mouth 2 (two) times a day. 12/23/19 Active ondansetron (ZOFRAN-ODT) [address] 1 tablet under the tongue every 8 (eight) hours as needed. 12/17/19 Active oxyCODONE 5 MG immediate release tablet Take 1 tablet (5 mg total) by mouth every 4 (four) hours as needed for moderate pain. Partial fill ok 10 tablet 01/10/20 Active Active Problems Problem Noted Date Diagnosed Date Status post reversal of ileostomy 01/08/2022 Rectal cancer 07/31/2021 Rectal adenocarcinoma 10/15/2020 Family History Medical History Relation Comments Diabetes Brother Hypertension Brother Diabetes Father Heart attack Father Cancer Maternal Aunt Cancer Mother Diabetes Mother Hypertension Mother Cancer Sister Relation Status Comments Brother Father Maternal Aunt Maternal Uncle Other breast ca Mother Other lung Sister Other uterine Social History Tobacco Use Types Packs/Day Years Used Date Smoking Tobacco: Former Cigarettes Q uit: 09/2020 Smokeless Tobacco: Never Alcohol Use Standard Drinks/Week Comments Not Currently 0 (1 standard drink = 0.6 oz pur e alcohol) Education Answer Date Recorded Are you interested in more education? Not on jadon e 10/23/2022 Are you concerned about learning? Not on file 10/23/2022 No 10/23/2022 No 10/23/2022 Digital Access Answer Date Recorded No 11/23/2022 No 11/23/2022 Reliable internet access at home? Not on file 11/23/2022 Device with a working camera? Not on file Comments No Sex and Gender Information Value Date Recorded Sex Assigned at Not on file Legal Sex Female 10:16 AM EDT Gender Identity Not on file Sexual Orientation Not on file Last Filed Vital Signs Vital Sign Reading Time Taken Comments Blood Pressure 97/63 01/09/2022 11:57 AM EDT Pulse 63 01/09/2022 11:57 AM EDT Temperature 36.1 C (97 F) 01/09/2022 11:57 AM EDT Respiratory Rate 20 01/09/2022 11:57 AM EDT Oxygen Saturation 100% 01/09/2022 11:57 AM EDT Inhaled Oxygen Concentration - - Weight 53.5 kg (118 lb) 01/08/2022 2:45 PM EDT Height 157.5 cm (5' 2 ) 01/08/2022 2:45 PM EDT Body Mass Index 21.58 01/08/2022 2:45 PM EDT Plan of Treatment Health Maintenance Due Date Last Done Comments LIPID PANEL 1969 DEPRESSION SCREENING 1981 SMOKING Hx and SMOKELESS TOBACCO SCREENING 1982 HEPATITIS C SCREENING 1987 HIV ONE-TIME SCREENING (18-6 5 YEARS) 1987 PNEUMOCOCCAL VACCINES (50+ years) (1 of 2 - PCV) 1988 ZOSTER VACCINES (1 of 2) 1988 PAP SMEAR 1990 MAMMOGRAM 2009 COLOGUARD 2014 COLONOSCOPY 2014 FIT TEST 2014 FOBT 2014 VIRTUAL COLONOSCOPY 2014 Adult Td,Tdap Booster 07/25/2023 07/25/2013 INFLUENZA VACCINE (#1) 2025 COVID-19 VACCINE (1 - 2023-2 5 season) 2025 COLORECTAL CANCER SCREENING 11/26/2026 SIGMOIDOSCOPY 11/26/2026 11/26/2021, 09/16/2021 HEPATITIS A VACCINES Aged Out No long er eligible based on patient's age to complete this topic HIB VACCINES Aged Out No longer eligi ble based on patient's age to complete this topic MENINGOCOCCAL VACCINES (ACWY) Aged Out No longer eligible based on patient's age to complete this topic MENINGOCOCCAL VACCINES (B) Aged Out N o longer eligible based on patient's age to complete this topic Medical Devices Implanted Type Area Master Baker Device Identifier Shelf Expiration Date Model / Serial / Lot Port Port Procedures Procedure Name Priority Date/Time Associated Diagnosis Comments ENDOSCOPY, SIGMOID 11/26/2021 10 :16 AM EDT from Last 3 Months or Most Recently Relevant to Health Maintenance Results * ENDOSCOPY, SIGMOID (11/26/2021 10:16 AM EDT) 11/26/2021 10:1 6 AM EDT Narrative Transcriptions Chandler Hackett MD - 11/26/2021 10:16 AM EDT Gastrointestinal Endoscopy Unit Patient Name: Amanda De Exam Date: 11/26/2021 10:16 AM Date of : 1970 Admit Type: Outpatient Age: 51 Room: [place] [address] Gender: Female Note Status: Finalized Attending MD: Chandler Hackett MD Procedure: Flexible Sigmoidoscopy Indications: High risk colon cancer surveillance: Personal history of colon cancer Providers: Chandler Hackett MD Referring MD: Chandler Hackett MD (Referring MD) Medicines: None Complications: No immediate complications. Procedure: After obtaining informed consent, the endoscope was passed under direct vision . The Colonoscope was introduced through the anus and advanced to the 20 cm from the anal verge. The flexible sigmoidoscopy was accomplished without difficulty. The patient tolerated the procedure well. The quality of the bowel preparation was good. Findings: The entire examined colon appeared normal. Normal anastomosis Impression: - The entire examined colon is normal. - No specimens collected. Recommendation: Ok to have reversal if barium study is negative Attending Participation: I was personally present throughout the entire procedure. Sedation was not administered. Chandler Hackett MD, [id number] 11/26/2021 10:18:30 AM Number of Addenda: 0 Note Initiated On: 11/26/2021 10:16 AM Chandler Hackett MD GI PROCEDURE ORDERABLES Final Result from Last 3 Months or Most Recently Relevant to Health Maintenance Insurance [facility] [place] [address] [place] [address] [facility] [place] [address] [place] [address] ACO [facility] Advance Directives For more information, please contact: [phone] (9AM - 5PM [facility], Tuesday-Tuesday) * Full Code (Latest Code Status on File) Date Activated Date Inactivated Comments 01/08/2022 4:44 PM Question Answer Comments Code Status Confirmed With: Patient * Full Code Date Activated Date Inactivated Comments 07/31/2021 12:15 PM 01/08/2022 4:44 PM Question Answer Comments Code Status Confirmed With: Patient Care Teams Pie Dough Roller Relationship Specialty Start Date End Date Flor Arriaza NP [address] [place] [address] PCP - General Family Medicine 07/28/21 Mckayla Reyes RN [address] [place] [phone] [email or web address] Registered Nurse 08/19/21 Additional Source Comments The information contained in this document represents components of the legal health record. It is not the complete legal health record.[facility]
--- OUTSIDE RECORDS SUMMARY | 2025-03-22 14:52 | XMS_ITS | Encounter Summary ---
Author Organization [facility] Address [address] [address] [place] [address] Phone Care Team Providers Care Financial Management Analyst Name Role Phone Flor Arriaza DRY JANITOR Primary Care Provider + [phone] Mckayla Reyes RN Unavailable [phone] Encounter Details Date Type Department Care Team ([facility] st Contact Info) Description 08/20/2021 Telephone [facility] General & Gastrointestinal Surgery [address] [place] [address], 4th Floor, [address] [place] [address] Chandler Hackett MD [address] [place] [address] [address] [place] [address] [email or web address] Social History Tobacco Use Types Packs/Day [...] on filedocumented in this encounter Care Teams Financial Management Analyst Relationship Specialty Start Date End Date Flor Arriaza NP [address] [place] [address] PCP - General Family Medicine 07/28/21 Mckayla Reyes RN 15 [place] [address] [email or web address] Registered Nurse 08/19/21 documented as of this encounter Additional Source Comments The information contained in this document represents components of the legal health record. It is not the complete legal health record.[facility]
--- OUTSIDE RECORDS SUMMARY | 2025-03-22 14:52 | XMS_ITS | Encounter Summary ---
Author Organization [facility] Address [address] [facility] [address] [place] [address] Phone Care Team Providers Care Area Field Manager Name Role Phone Ky Lin MD Primary Care Provider [phone] Flor Arriaza NP Primary Care Provider [phone] Mckayla Reyes RN Unavailable [phone] Encounter Details Date Type Department Care Team (Late st Contact Info) Description 07/01/2021 Procedure Pass MRI, [facility] [place] [address] [facility] [place] [id number] Social History Tobacco Use Types Packs/Day Years [...] on filedocumented in this encounter Care Teams Area Field Manager Relationship Specialty Start Date End Date Ky Lin MD [address] [place] [address] [place] [address] PCP - General Internal Medicine 10/10/20 07/27/21 Flor Arriaza, PORTER LUGGAGE [address] [place] [address] [place] [address] PCP - General Family Medicine 07/28/21 Mckayla Reyes RN 15 [place] [address] [email or web address] Registered Nurse 08/19/21 documented as of this encounter Additional Source Comments The information contained in this document represents components of the legal health record. It is not the complete legal health record.[facility]
--- OUTSIDE RECORDS SUMMARY | 2025-03-22 14:52 | XMS_ITS | Encounter Summary ---
Author Organization [facility] Address [address] [place] [address] Phone Care Team Providers Care Knotting Machine Operator Portable Name Role Phone Ky Lin MD Primary Care Provider [phone] Flor Arriaza NP Primary Care Provider [phone] Mckayla Reyes RN Unavailable [phone] Encounter Details Date Type Department Care Team (Late st Contact Info) Description 10/22/2020 Ancillary Orders [facility],Outside Imaging [address] [place], [place] [phone] System, Provider Not In, [place] [address] Social History Tobacco Use Types Packs/Day Years Used Date Smoking Tobacco: Never Assessed Comments Unknown Sex and Gender Information Value Date Recorded Sex Assigned at Not on file Legal Sex Female 10:16 AM EDT Gender Identity Not on file Sexual Orientation Not on file documented as of this encounter Plan of Treatment Not on file documented as of this encounter Results * MRI Pelvis (Bone) Outside (No Interpretation) (10/15/2020 12:00 AM EDT) Narrative SYSTEMGENERATED, DOCUMENTATION - 10/22/2020 11:21 AM EDT This study is for PACS storage only and not for interpretation. us Provider Not In System PhD IMG OUTSIDE IMAGING W /OUT INTERPRETATION Final Result documented in this encounter Visit Diagnoses Not on filedocumented in this encounter Care Teams Knotting Machine Operator Portable Relationship Specialty Start Date End Date Ky Lin MD [address] [place] [address] [address] [place] [address] PCP - General Internal Medicine 10/10/20 07/27/21 Flor Arriaza NP [address] [place] [address] PCP - General Family Medicine 07/28/21 Mckayla Reyes RN [address] [place] [phone] [email or web address] Registered Nurse 08/19/21 documented as of this encounter Additional Source Comments The information contained in this document represents components of the legal health record. It is not the complete legal health record.[facility]
--- OUTSIDE RECORDS SUMMARY | 2025-03-22 14:53 | XMS_ITS | Encounter Summary ---
Author Organization [facility] Address [address] [facility] [address] [place] [address] Phone Care Team Providers Care Carpet Winder Name Role Phone Manny Arriazassjeanine Galarza NP Primary Care Provider + [phone] Mckayla Reyes RN Unavailable [phone] Encounter Details Date Type Department Care Team (Late st Contact Info) Description 01/08/2022 Procedure Pass [facility] PERIOPERATIVE DEPT [address] [place] [address] Social History Tobacco Use Types Packs/Day Years [...] on file documented as of this encounter Functional Status * Calculated C-SSRS Risk Score (Lifetime/Recent) Answer Date of Assessment Author No Risk Indicated 01/08/2022 2:43 PM EDT Zuleyka Bose RN * [place] Suicide Severity Rating Scale (Screener/Recent Self-Report) Question Answer Date of Assessment Author 1. Wish to be (Past 1 Month) No 01/08/2022 2:43 PM EDT Zuleyka Bose RN 2. Non-Specific Active Suici urvashi Thoughts (Past 1 Month) No 01/08/2022 2:43 PM EDT Loly Bose RN 6. Suicidal Behavior (Lifetime) No 2 2:43 PM EDT Zuleyka Bose RN documented as of this encounter Plan of Treatment Not on file documented as of this encounter Visit Diagnoses Not on filedocumented in this encounter Care Teams Carpet Winder Relationship Specialty Start Date End Date Flor Arriaza NP [address] [place] [address] PCP - General Family Medicine 07/28/21 Mckayla Reyes RN [address] [place] [phone] [email or web address] Registered Nurse 08/19/21 documented as of this encounter Additional Source Comments The information contained in this document represents components of the legal health record. It is not the complete legal health record.[facility]
--- OUTSIDE RECORDS SUMMARY | 2025-03-22 14:53 | XMS_ITS | Encounter Summary ---
Author Organization [employer] Address [address] [place] [address] 7 [place] [address] Care Team Providers Care Cradle Placer Name Role Phone Unavailable Primary Care Provider Unavailabl e Reason for Visit * Reason Onset Date Comments missed call 06/14/2024 Encounter Details Date Type Department Care Team (Late st Contact Info) Description 06/14/2024 Telephone [facility] ADULT DENTAL [address] [place] [address] Alessandro Mcmahon DMD [address] [place], [place] [phone] missed call Social History Tobacco Use Types [...] Care Team (Late st Contact Info) Description 04/04/2025 1:30 PM EDT Office Visit [facility] CHC ADULT DENTAL [address] [place], [place] [phone] Rafael Camacho [address] [place], [place] [phone] documented as of this encounter Visit Diagnoses Not on filedocumented in this encounter
--- OUTSIDE RECORDS SUMMARY | 2025-03-22 14:53 | XMS_ITS | Encounter Summary ---
Author Organization [facility] Address [address] [facility] [address] [place] [address] Phone Care Team Providers Care Hadoop Consultant Name Role Phone Flor Arriaza FIRE SAFETY MANAGER Primary Care Provider + [phone] Mckayla Reyes RN Unavailable [phone] Encounter Details Date Type Department Care Team ([facility] st Contact Info) Description 08/18/2021 Telephone [facility] General & Gastrointestinal Surgery [address] [place] [address], 4th Floor, [address] [place] [address] Chandler Hackett MD [address] [place] [address] [address] [place] [address] [email or web address] Social History Tobacco Use Types Packs/Day Years [...] on filedocumented in this encounter Care Teams Hadoop Consultant Relationship Specialty Start Date End Date Flor Arriaza NP [address] [place] [address] PCP - General Family Medicine 07/28/21 Mckayla Reyes RN [address] [place] [address] [email or web address] Registered Nurse 08/19/21 documented as of this encounter Additional Source Comments The information contained in this document represents components of the legal health record. It is not the complete legal health record.[facility]
--- OUTSIDE RECORDS SUMMARY | 2025-03-22 14:53 | XMS_ITS | Encounter Summary ---
Author Organization [facility] Address [address] [place] [address] Phone Care Team Providers Care Pile Driver Operator Name Role Phone Flor Arriaza NP Primary Care Provider + [phone] Mckayla Reyes RN Unavailable [phone] Encounter Details Date Type Department Care Team ([facility] st Contact Info) Description 07/29/2021 Telephone [facility] General & Gastrointestinal Surgery [address] [place] [address], 4th Floor, [address] [place] [address] Chandler Hackett MD [address] [place] [address] [address] [place] [address] [email or web address] Social History Tobacco Use Types [...] Date of Assessment Author No Risk Indicated 07/31/2021 6:34 AM Saundra Green RN * [place] Suicide Severity Rating Scale (Screener/Recent Self-Report) Question Answer Date of Assessment Author 1. Wish to be (Past 1 Month) No 07/31/2021 6:34 AM Saundra Green ae, RN 2. Non-Specific Active Suici urvashi Thoughts (Past 1 Month) No 07/31/2021 6:34 AM Saundra Green RN 6. Suicidal Behavior (Lifetime) No 6:34 AM Saundra Green RN documented as of this encounter Plan of Treatment Not on file documented as of this encounter Visit Diagnoses Not on filedocumented in this encounter Care Teams Pile Driver Operator Relationship Specialty Start Date End Date Flor Arriaza NP [address] [place] [address] PCP - General Family Medicine 07/28/21 Mckayla Reyes RN [address] [place] [phone] [email or web address] Registered Nurse 08/19/21 documented as of this encounter Additional Source Comments The information contained in this document represents components of the legal health record. It is not the complete legal health record.[facility]
--- OUTSIDE RECORDS SUMMARY | 2025-03-22 14:53 | XMS_ITS | Encounter Summary ---
Author Organization [facility] Address [address] [facility] [address] [place] [address] Phone Care Team Providers Care Theatre Arts Professor Name Role Phone Arsalan Flor Geovanni ASSISTANT SHIFT SUPERVISOR Primary Care Provider + [phone] Mckayla Reyes RN Unavailable [phone] Encounter Details Date Type Department Care Team (Late st Contact Info) Description 07/31/2021 Procedure Pass [facility] [place] PERIOPERATIVE DEPT [address] [place] [address] Social History Tobacco Use Types Packs/Day Years [...] 07/31/2021 6:34 AM Saundra Green RN * [place] Suicide Severity Rating Scale (Screener/Recent Self-Report) Question [...] on filedocumented in this encounter Care Teams Theatre Arts Professor Relationship Specialty Start Date End Date Flor Arriaza NP [address] [place] [address] PCP - General Family Medicine 07/28/21 Mckayla Reyes RN [address] [place] [phone] [email or web address] Registered Nurse 08/19/21 documented as of this encounter Additional Source Comments The information contained in this document represents components of the legal health record. It is not the complete legal health record.[facility]
--- OUTSIDE RECORDS SUMMARY | 2025-03-22 14:53 | XMS_ITS | Clinical Summary ---
Author Organization [employer] Address [address] [facility] [address] [place] [address] Care Team Providers Care Utility Sales Representative Name Role Phone Unavailable Primary Care Provider [...] ium Nitrate 1.1-5 % pasteIndication s:Dental caries [place] teeth for 2 minutes, morning and night. Spit, do not rinse. Do not eat or drink anything for 30 minutes following brushing. 112 g 3 4 Active naproxen (Naprosyn) 500 MG tablet TAKE ONE TABLET ORALLY EVERY 12 HOURS NEEDED FOR PAIN (SCALE SCORE 1-3) 5 Active omeprazole (PriLOSEC) [address] capsule TAKE 1 CAPSULE BY MOUTH DAILY AT 6:30 AM 5 Active Active Problems Problem Noted Date Diagnosed Date Status post reversal of ileostomy 01/08/2022 Rectal adenocarcinoma 10/15/2020 Social History Tobacco Use Types Packs/Day Years [...] Sign Reading Time Taken Comments Blood Pressure 120/80 11/16/2024 10:18 AM EDT Pulse - - Temperature - - Respiratory Rate - - Oxygen Saturation - - Inhaled Oxygen Concentration - - Weight - - Height - - Body Mass Index - - Plan of Treatment Upcoming Encounters Date Type Department Care Team ([facility] st Contact Info) Description 04/04/2025 1:30 PM EDT Office Visit [facility] [address] [place] [address] Rafael Camacho [address] [place] [address] Health Maintenance Due Date Last Done Comments CT Colonography 1969 Colonoscopy 1969 Colorectal Cancer Screening 1969 Depression Screening 1969 FIT DNA/Cologuard 1969 FIT 1969 FOBT 1969 HIV Screening 1969 SDOH Screening 1969 Sigmoidoscopy 1969 Disability Screening 1969 Alcohol/Substance Use Screening 1981 Hepatitis C Screening 1987 Hepatitis B Vaccines (1 of 3 - 19+ 3-dose series) 1988 Pap Smear 1990 Cervical Cancer Screening 1999 HPV/Cotest 1999 Mammogram 2009 Pneumococcal Vaccine: 50+ Years (1 of 1 - PCV) 2019 Zoster Vaccines (1 of 2) 2019 DTaP/Tdap/Td Vaccines (2 - T d or Tdap) 07/25/2023 07/25/2013 Dental Oral Exam 06/17/2024 12/16/2023 COVID-19 Vaccine (1 - 2023-2 5 season) 2025 Influenza Vaccine (#1) 2025 Dental Prophylaxis 04/28/2025 10/25/2024 Dental X-Ray: Bitewings 10/26/2025 10/26/19 25, 12/16/2023, 07/30/2020 Tobacco Screening 11/16/2025 11/16/2024 Dental X-Ray: Full Mouth 12/16/2026 12/16/2023 RSV [...] Procedure Name Priority Date/Time Associated Diagnosis Comments PROPHYLAXIS - ADULT Routine 10/25/2024 1 1:00 AM EDT BITEWINGS - 4 RADIOGRAPHIC IMAGES Routine 10/25/2024 11:00 AM EDT INTRAORAL - COMPLETE SERIES OF RADIOGRAPHIC IMAGES Routine 12/16/2023 10:30 AM EDT Dental caries Periodontal disease COMPREHENSIVE ORAL EVALUATION - NEW OR ESTABLISHED PATIENT Routine 12/16/2023 10:30 AM EDT Dental caries Periodontal disease from Last 3 Months or Most Recently Relevant to Health Maintenance Insurance Hi Brennan [facility] [place] [phone] [facility] STAND ADULT
== END 2025-03-22 14:17 | disposition home or self-care (01) ==
LOC: HO.HMCH 13:32
PROVIDERS: PCP Internal Medicine; Visit Provider Internal Medicine
DX: G62.9 Polyneuropathy, unspecified (principal); C20 Malignant neoplasm of rectum; C78.00 Secondary malignant neoplasm of unspecified lung; M46.1 Sacroiliitis, not elsewhere classified; M25.552 Pain in left hip; M54.16 Radiculopathy, lumbar region; R79.89 Other specified abnormal findings of blood chemistry; K21.9 Gastro-esophageal reflux disease without esophagitis; E55.9 Vitamin D deficiency, unspecified; F41.9 Anxiety disorder, unspecified

== ENCOUNTER → 2025-03-22 13:31 | Outpatient (BNVA) | payer MEDICARE, MEDICAID, SELFPAY | PROVIDERS: PCP Internal Medicine; Visit Provider Internal Medicine | DX: M25.552 Pain in left hip (principal); M54.50 Low back pain, unspecified; R10.2 Pelvic and perineal pain; G62.9 Polyneuropathy, unspecified; M46.1 Sacroiliitis, not elsewhere classified; M54.16 Radiculopathy, lumbar region; C20 Malignant neoplasm of rectum; C78.00 Secondary malignant neoplasm of unspecified lung; R79.89 Other specified abnormal findings of blood chemistry; K21.9 Gastro-esophageal reflux disease without esophagitis; E55.9 Vitamin D deficiency, unspecified; F41.9 Anxiety disorder, unspecified | CPT/HCPCS: 99212 ==

== ENCOUNTER 2025-06-25 08:51 | Emergency (ER) | payer MEDICARE, SELFPAY ==
--- NOTE | ~2025-06-25 | XR_ITS ---
EXAMINATION: XR CHEST CLINICAL INFORMATION: cough COMPARISON: 03/21/2023. CT chest 09/26/2024. TECHNIQUE: 2 views of the chest were obtained. FINDINGS: Right chest port in place with tip in the cavoatrial junction. The cardiac, hilar, and mediastinal contours are normal. The lungs are clear bilaterally. There is a suture line in the left lower lobe, presumably from prior wedge resection. There is no pneumothorax or pleural effusion. There is no focal osseous or soft tissue abnormality. XR/XR chest 2V IMPRESSION: No active pulmonary disease. Electronically signed by: Reyes Lam MD 06/25/2025 09:25 AM [facility]
[2025-06-25 08:56] VITALS: BP 125/89; PULSE 90; O2SAT 100
[2025-06-25 09:04] VITALS: BP 137/80; PULSE 103; RESP 16; TEMP 36.6; O2SAT 99; BMI 19.1
--- NOTE | 2025-06-25 09:04 | ED.GENADULT ---
HPI - General Adult General Chief complaint: Upper Respiratory Symptoms Stated complaint: FLU LIKE SX X3D [facility] Time Seen by Provider: 06/25/25 09:36 Source: patient Mode of arrival: ambulatory Limitations: no limitations History of Present Illness ED Provider: HPI narrative: 54-year-old woman with a history of colon cancer with metastases to lung, reports to be in remission presenting with flu-like symptoms for the past 2 days, with decreased appetite, has been trying to stay hydrated however and nourished with broth etc. has been using NyQuil and Excedrin with no relief of her symptoms reports a headache, coughs with subjective fevers and chills. Related Data Home Medications ?Medication ?Instructions ?Recorded ?Confirmed cyanocobalamin (vitamin B-12) 1,000 mcg PO DAILY 01/10/22 03/22/25 1,000 mcg tablet cholecalciferol (vitamin D3) 50 50 mcg PO FR 10/29/22 03/22/25 mcg (2,000 unit) capsule Previous Rx's ?Medication ?Instructions ?Recorded omeprazole 20 mg capsule,delayed 20 mg PO DAILY@0630 90 days #90 07/27/24 release caps oxycodone 5 mg tablet 5 mg PO Q8H pain 2 days #6 tabs 02/21/25 megestrol 800 mg/20 mL (20 mL) 800 mg (20 mL) PO DAILY #300 mL 03/19/25 oral suspension potassium chloride 10 mEq 20 meq (2 x 10 mEq) PO DAILY #180 05/14/25 tablet,extended release tabs folic acid 1 mg tablet 1 mg PO DAILY 90 days #90 tabs 06/24/25 oxycodone 10 mg tablet 10 mg PO Q8H PRN Breakthrough 06/24/25 Pain, Severe 10 days #30 tabs codeine 7.5 mg-guaifenesin 225 7.5 ml PO Q4-6H PRN cough #473 mL 06/25/25 mg/5 mL oral liquid ondansetron 4 mg disintegrating 4 mg PO Q8H PRN nausea and 06/25/25 tablet vomiting #4 tabs Allergies Allergy/AdvReac Type Severity Reaction Status Date / Time gabapentin AdvReac Unknown dizziness, Verified 06/25/25 09:08 lightheadedness ibuprofen AdvReac Unknown nausea and Verified 06/25/25 09:08 vomiting Review of Systems Constitutional: Constitutional: Reports as per [facility] Past Medical History Medical History (Updated 06/25/25 @ 10:[address] Dhaliwal DO) Neuropathy External hemorrhoids with complication Port-A-Cath in place Osteoarthritis of sacroiliac joint Rectal pain History of rectal cancer Rectal cancer metastasized to lung (~2020) Mass of left lung Intractable pain Personal history of nicotine dependence Perianal dermatitis Vitamin D deficiency ASCUS with positive high risk HPV cervical Gastroesophageal reflux disease Tubular adenoma H. pylori infection Chronic pain syndrome Sacroiliitis Lumbar back pain with radiculopathy affecting left lower extremity Surgical History History of lung surgery (~2022) History of colonoscopy History of tubal ligation (~1999) History of hemorrhoidectomy (~2007) History of low anterior resection of rectum (~07/2021) History of reversal of ileostomy (~12/2021) S/P anal fissurectomy (~2008) History of bursectomy (~2013) History of nasal polypectomy History of esophagogastroduodenoscopy (EGD) Family History Family History Mother Diabetes HTN (hypertension) Father Diabetes Heart attack Brother Diabetes Heart problem HTN (hypertension) Maternal Aunt Breast cancer Sister Uterus cancer Maternal Aunt Breast cancer Mother Lung cancer Other Mental health disorder Social History Social History Household Members: Significant Other Housing: House Are you a primary caregivers non medical to a significant other at home: No Do you presently have visiting nurse or other home services: No Alcohol intake: never Patient Tobacco Use Status: Former Tobacco user Tobacco use type: Cigarette e-Cigarette/Vaping Use: Never Used Second Hand Smoke Exposure: Yes Advance Directives: No Advance Directives Information Provided: Yes service: No Current occupational status: unemployed and disabled Cognitive needs: No Hearing needs: No Vision needs: No Physical Exam ED Exam Exam: ?General: ??looks age appropriate ?Uvula midline, no trismus ?CV: RRR, no obvious murmurs appreciated ?Resp: ?No wheezing rales rhonchi no stridor moving air well, right-sided port in place Abd: ?Bowel sounds are present, no tenderness no rebound no rigidity MSK: FROM, strength 5/5 all extremities Skin: Warm, dry, intact, ?Neuro: ?Alert and oriented x3, moving upper and lower extremities symmetrically, no obvious facial asymmetry noted, cranial nerves 2-12 intact Vital Signs: Vital Signs - 24 hr 06/25/25 09:04 Temperature 97.9 F Pulse Rate 103 H Respiratory Rate 16 Blood Pressure 137/80 Pulse Oximetry 99 Oxygen Delivery Method Room Air BMI result Body Mass Index 19.1 Course Course Course Narrative: This is a Rapid Medical Examination (RME) performed by Michelle Ramírez PA-C in triage. Full HPI, ROS, assessment and treatment plan per primary provider in the Main ED. Hx: 54 yo F hx lung and colon cancer in remission here for eval of migraine, productive cough, N/V/D. no sick contacts. not currently on answer cancer treatments. took nyquil and excedrin last night. Plan: cxr, viral swabs Medications Administered Discontinued Medications Generic Name Dose Route Start Last Admin Trade Name Freq PRN Reason Stop Dose Admin Benzonatate 100 mg 06/25/25 10:05 06/25/25 10:29 Benzonatate 100 Mg Capsule PO 06/25/25 10:06 100 mg ONCE ONE Administration Ketorolac Tromethamine 15 mg 06/25/25 10:05 06/25/25 10:29 Ketorolac Tromethamine 15 Mg/Ml Vial IM 06/25/25 10:06 15 mg ONCE ONE Administration Ondansetron HCl 4 mg 06/25/25 10:05 06/25/25 10:29 Ondansetron Odt 4 Mg Tab.Rapdis TRANSLINGU 06/25/25 10:06 4 mg ONCE ONE Administration Medical Decision Making Medical Decision Making MDM Narrative: 10:06 AM 06/25/2025 (Dr. Lane Dhaliwal): Chest x-ray without any evidence of pneumonia, reports decreased p.o. intake but mostly here for symptoms of body aches, cough, currently in remission from colon cancer, discussed symptomatic control on discharge, 10:31 AM 06/25/2025 (Dr. Lane Dhaliwal): Patient is here 48 hours after the onset no utility for Tamiflu at this time Differential Diagnosis Differential Diagnoses: The differential diagnosis associated with the presentation includes (Pneumonia, dehydration, ENT infection, influenza) Admission/Observation Consideration of admission/observation: Escalation of care including admission/observation considered Lab Data MDM Lab Attestation statement: I reviewed the patient's lab results. Labs: Lab Results 06/25/25 Range/Units 09:31 Influenza Type A (PCR) POSITIVE A (Negative) Influenza Type B (PCR) NEGATIVE (Negative) RSV RNA Qual (PCR) NEGATIVE (Negative) SARS-CoV-2 RNA (RT-PCR) NEGATIVE (Negative) Radiology Impression Discussion of test interpretation with radiology: I have reviewed the radiologist's reading. Discharge Plan Discharge Clinical Impression: Upper respiratory infection, Influenza A Patient Disposition: Home, Self-Care Instructions: Viral Syndrome (ED) Additional Instructions: Evaluated with a viral symptoms, Viral swab resulted: Influenza A In the meantime you were given a shot of Toradol, medication for nausea, and cough At home you can continue using Zofran 4 mg every 8 hours needed for nausea and vomiting, and codeine containing cough medication every 4-6 hours 5-7-1/2 mL, make sure do not take it at the same time as your oxycodone as they both contain a narcotic Otherwise follow up with the PCP Your chest x-ray without pneumonia Prescriptions: New codeine-guaifenesin 7.5-225 mg/5 mL liquid 7.5 ml PO Q4-6H PRN (Reason: cough) Qty: 473 0RF ondansetron 4 mg tablet,disintegrating 4 mg PO Q8H PRN (Reason: nausea and vomiting) Qty: 4 0RF No Action oxycodone 5 mg tablet 5 mg PO Q8H 2 Days Qty: 6 0RF Rx Instructions: Partial Fill upon patient request. potassium chloride 10 mEq tablet extended release 20 meq PO DAILY Qty: 180 0RF folic acid 1 mg tablet 1 mg PO DAILY 90 Days Qty: 90 3RF oxycodone 10 mg tablet 10 mg PO Q8H PRN (Reason: Breakthrough Pain, Severe) 10 Days Qty: 30 0RF Rx Instructions: Partial Fill upon patient request; refill Rx only when due cyanocobalamin (vitamin B-12) 1,000 mcg Tablet 1,000 mcg PO DAILY cholecalciferol (vitamin D3) 50 mcg (2,000 unit) capsule 50 mcg PO FR megestrol 800 mg/20 mL (20 mL) Suspension 800 mg PO DAILY Qty: 300 2RF omeprazole 20 mg capsule,delayed release(DR/EC) 20 mg PO DAILY@0630 90 Days Qty: 90 1RF Print Language: Andorran
[2025-06-25 10:14] LABS: Resp Syncy Virus RNA Qual PCR NEGATIVE (Negative); SARS COV2 PCR INHOUSE NEGATIVE (Negative)
[2025-06-25 10:49] VITALS: BP 137/80; PULSE 103; RESP 16; TEMP 36.6; O2SAT 99
--- OUTSIDE RECORDS SUMMARY | 2025-06-25 12:18 | XMS_ITS | Encounter Summary ---
Author Organization [facility] Address [address] [place] [address] Phone Care Team Providers Care Product Support Manager Name Role Phone Flor Arriaza EQUIPMENT STERILIZER Primary Care Provider + [phone] Mckayla Reyes RN Unavailable [phone] Encounter Details Date Type Department Care Team (Late st Contact Info) Description 11/11/2021 Procedure Pass [facility] 4 ENDO DEPT [address] [facility], 4th [place] [address] Social History Tobacco Use Types Packs/Day Years [...] on filedocumented in this encounter Care Teams Product Support Manager Relationship Specialty Start Date End Date Flor Arriaza NP [address] [address] PCP - General Family Medicine 07/28/21 Mckayla Reyes, RN [address] [place] [phone] Registered Nurse 08/19/21 documented as of this encounter Additional Source Comments The information contained in this document represents components of the legal health record. It is not the complete legal health record.[facility]
--- OUTSIDE RECORDS SUMMARY | 2025-06-25 12:18 | XMS_ITS | Encounter Summary ---
Author Organization [facility] Address [address] [place] [address] Phone Care Team Providers Care Electronic Plotting System Operator Name Role Phone Flor Arriaza CHILI MAKER Primary Care Provider + [phone] Mckayla Reyes RN Unavailable [phone] Encounter Details Date Type Department Care Team (Late st Contact Info) Description 09/16/2021 Procedure Pass [facility] [address] [facility], 4th [place] [address] Social History Tobacco Use Types Packs/Day Years [...] on filedocumented in this encounter Care Teams Electronic Plotting System Operator Relationship Specialty Start Date End Date Flor Arriaza NP [address] [address] PCP - General Family Medicine 07/28/21 Mckayla Reyes, RN [address] [place] [phone] Registered Nurse 08/19/21 documented as of this encounter Additional Source Comments The information contained in this document represents components of the legal health record. It is not the complete legal health record.[facility]
--- OUTSIDE RECORDS SUMMARY | 2025-06-25 12:18 | XMS_ITS | Encounter Summary ---
Author Organization [facility] Address [address] [facility] [address] [place] [address] Phone Care Team Providers Care Repulping Supervisor Name Role Phone Ky Lin MD Primary Care Provider [phone] Flor Arriaza NP Primary Care Provider [phone] Mckayla Reyes RN Unavailable [phone] Encounter Details Date Type Department Care Team (Late st Contact Info) Description 10/13/2020 Ancillary Orders [facility],Outside Imaging [address] [place], [place] [id number] System, Provider Not In, [place] [address] Social History Tobacco Use Types Packs/Day Years [...] on filedocumented in this encounter Care Teams Repulping Supervisor Relationship Specialty Start Date End Date Ky Lin MD [address] [place] [address] [address] [place] [address] PCP - General Internal Medicine 10/10/20 07/27/21 Flor Arriaza NP [address] [place] [address] PCP - General Family Medicine 07/28/21 Mckayla Reyes RN [address] [place] [address] [email or web address] Registered Nurse 08/19/21 documented as of this encounter Additional Source Comments The information contained in this document represents components of the legal health record. It is not the complete legal health record.[facility]
--- OUTSIDE RECORDS SUMMARY | 2025-06-25 12:18 | XMS_ITS | Encounter Summary ---
Author Organization [facility] Address [address] [facility] [address] [place] [address] Phone Care Team Providers Care Exceptional Student Education Aide Name Role Phone Ky Lin MD Primary Care Provider [phone] Flor Arriaza NP Primary Care Provider [phone] Mckayla Reyes RN Unavailable [phone] Encounter Details Date Type Department Care Team ([facility] st Contact Info) Description 02/02/2021 Procedure Pass MRI, [facility] Imaging - [address], [address] [place] [id number] Social History Tobacco Use Types Packs/Day Years [...] on filedocumented in this encounter Care Teams Exceptional Student Education Aide Relationship Specialty Start Date End Date Ky Lin MD [address] [place] [address] [place] [address] PCP - General Internal Medicine 10/10/20 07/27/21 Flor Arriaza NP [address] [place] [address] [id number] PCP - General Family Medicine 07/28/21 Mckayla Reyes, RN [address] [place] [address] [email or web address] Registered Nurse 08/19/21 documented as of this encounter Additional Source Comments The information contained in this document represents components of the legal health record. It is not the complete legal health record.[facility]
--- OUTSIDE RECORDS SUMMARY | 2025-06-25 12:18 | XMS_ITS | Encounter Summary ---
Author Organization [facility] Address [address] [place] [address] Phone Care Team Providers Care Auto Transmission Specialist Name Role Phone Flor Arriaza SKIN GRADER Primary Care Provider + [phone] Mckayla Reyes RN Unavailable [phone] Encounter Details Date Type Department Care Team (Late st Contact Info) Description 11/26/2021 Procedure Pass [facility] [address] [facility], 4th [place] [address] Social History Tobacco Use Types Packs/Day Years [...] on filedocumented in this encounter Care Teams Auto Transmission Specialist Relationship Specialty Start Date End Date Flor Arriaza NP [address] [address] PCP - General Family Medicine 07/28/21 Mckayla Reyes, RN [address] [place] [phone] Registered Nurse 08/19/21 documented as of this encounter Additional Source Comments The information contained in this document represents components of the legal health record. It is not the complete legal health record.[facility]
--- OUTSIDE RECORDS SUMMARY | 2025-06-25 12:18 | XMS_ITS | Clinical Summary ---
Author Organization [facility] Address [address] [place] [address] Care Team Providers Care Auto Service Mechanic Name Role Phone Ky Lin MD Primary Care Provider Surgical History Surgery Date Site/Laterality Comments COLONOSCOPY N/A PROCEDURE: HISTORICAL COLONOSCOPY ESOPHAGOGASTRODUODENOSCOPY N/A PROCEDURE: SD ESOPHAGOGASTRODUODENOSCOPY TRANSORAL DIAGNOSTIC OTHER SURGICAL HISTORY N/A PROCEDURE: SD HEMORRHOIDECTOMY NTRNL & XTRNL 1 COLUMN/GROUP OTHER SURGICAL HISTORY PROCEDURE: SD EXCISION NASAL POLYP SIMPLE TUBAL LIGATION Bilateral PROCEDURE: HISTORICAL TUBAL LIGATION OTHER SURGICAL HISTORY N/A PROCEDURE: SD UNLISTED PROCEDURE RECTUM OTHER SURGICAL HISTORY N/A PROCEDURE: SD FISSURECTOMY INCL SPHINCTEROTOMY WHEN PERFORMED OTHER SURGICAL HISTORY 11/02/2022 Left PROCEDURE: SD THORACOSCOPY W/THERA WEDGE RESEXN INITIAL UNILAT; COMMENT: [...] Years Used Date Smoking Tobacco: Former Cigarettes 0 Q uit: 06/27/2020 Alcohol Use Standard Drinks/Week [...] Last Done Comments Breast Cancer Screening 1969 Colorectal Cancer Screening: Colonoscopy 1969 COVID-19 Vaccine (#1) 1974 DTaP,Tdap,and Td Vaccines (1 - Tdap) 1988 Hepatitis B Vaccines (1 of 3 - 19+ 3-dose series) 1988 Pneumococcal Vaccine: 50+ Ye ars (1 of 2 - PCV) 1988 Zoster Vaccines (1 of 2) 1988 Cervical Cancer Screening: P ap Smear 1990 HIV Screening 07/22/2023 Hepatitis C Screening 07/22/2023 Social Influencers of Health Screening 07/22/2023 Depression Screening 06/27/2024 Influenza Vaccine (#1) 2025 RSV Immunization Adult Patie nts (1 - 1-dose 75+ series) 2044 HIB [...] age to complete this topic Care Teams Auto Service Mechanic Relationship Specialty Start Date End Date Ky Lin MD [address] [place] [address] Dr [address] [place], [place] PCP - General 10/11/22
--- OUTSIDE RECORDS SUMMARY | 2025-06-25 12:18 | XMS_ITS | Encounter Summary ---
Author Organization [facility] Address [address] [place] [address] Phone Care Team Providers Care Auxiliary Equipment Operator Name Role Phone Ky Lin MD Primary Care Provider [phone] Flor Arriaza NP Primary Care Provider [phone] Mckayla Reyes RN Unavailable [phone] Encounter Details Date Type Department Care Team (Late st Contact Info) Description 10/22/2020 Ancillary Orders [facility],Outside Imaging [address] [place], [place] [phone] System, Provider Not In, [place] [address] Social History Tobacco Use Types Packs/Day Years [...] on filedocumented in this encounter Care Teams Auxiliary Equipment Operator Relationship Specialty Start Date End Date Ky Lin MD [address] [place] [address] [address] [place] [address] PCP - General Internal Medicine 10/10/20 07/27/21 Flor Arriaza NP [address] [place] [address] [address] [place] [address] PCP - General Family Medicine 07/28/21 Mckayla Reyes RN [address] [place] [phone] [email or web address] Registered Nurse 08/19/21 documented as of this encounter Additional Source Comments The information contained in this document represents components of the legal health record. It is not the complete legal health record.[facility]
--- OUTSIDE RECORDS SUMMARY | 2025-06-25 12:18 | XMS_ITS | Clinical Summary ---
Author Organization [facility] Address [address] [place] [address] Phone Care Team Providers Care Service Department Manager Name Role Phone Flor Arriaza NP Primary Care Provider + [phone] Mckayla Reyes RN Unavailable [phone] Allergies Active Allergy Reactions Criticality Noted Date [...] 07/25/2013 INFLUENZA VACCINE (#1) 2025 COVID-19 VACCINE ( - 2024-2 6 season) 2025 COLORECTAL CANCER SCREENING 11/26/2026 SIGMOIDOSCOPY 11/26/2026 11/26/2021, 09/16/2021 RSV VACCINE (1 - 1-dose 75+ series) 2044 HEPATITIS A VACCINES Aged Out No long [...] this topic Medical Devices Implanted Type Area Windows Systems Administrator Device Identifier Shelf Expiration Date Model / [...] 1970 Admit Type: Outpatient Age: 51 Room: [place] [address] Gender: Female Note Status: Finalized Attending MD: [...] Sedation was not administered. Chandler Hackett MD, [id number] 11/26/2021 10:18:30 AM Number of Addenda: 0 Note Initiated On: 11/26/2021 10:16 AM Chandler Hackett MD GI PROCEDURE ORDERABLES Final Result from Last 3 Months or Most Recently Relevant to Health Maintenance Insurance [facility] Advance Directives For more information, please contact: [phone] (9AM - 5PM [facility], Tuesday-Tuesday) * Full Code (Latest Code Status on File) Date Activated Date Inactivated Comments 01/08/2022 4:44 PM Question Answer Comments Code Status Confirmed With: Patient * Full Code Date Activated Date Inactivated Comments 07/31/2021 12:15 PM 01/08/2022 4:44 PM Question Answer Comments Code Status Confirmed With: Patient Care Teams Service Department Manager Relationship Specialty Start Date End Date Flor Arriaza NP [address] [place] [address] PCP - General Family Medicine 07/28/21 Mckayla Reyes RN [address] [place] [phone] Registered Nurse 08/19/21 Additional Source Comments The information contained in this document represents components of the legal health record. It is not the complete legal health record.[facility]
--- OUTSIDE RECORDS SUMMARY | 2025-06-25 12:19 | XMS_ITS | Encounter Summary ---
Author Organization [facility] Address [address] [facility] [address] [place] [address] Phone Care Team Providers Care Stylist Apprentice Name Role Phone Ky Lin MD Primary Care Provider [phone] Flor Arriaza NP Primary Care Provider [phone] Mckayla Reyes RN Unavailable [phone] Encounter Details Date Type Department Care Team ([facility] Contact Info) Description 07/01/2021 Procedure Pass MRI, [facility] Imaging - [address], [address] [place] [id number] Social History Tobacco Use Types Packs/Day Years [...] on filedocumented in this encounter Care Teams Stylist Apprentice Relationship Specialty Start Date End Date Ky Lin MD [address] [place] [address] [place] [address] PCP - General Internal Medicine 10/10/20 07/27/21 Flor Arriaza SUBEDITOR [address] [place] [address] PCP - General Family Medicine 07/28/21 Mckayla Reyes, RN [address] [place] [address] [email or web address] Registered Nurse 08/19/21 documented as of this encounter Additional Source Comments The information contained in this document represents components of the legal health record. It is not the complete legal health record.[facility]
--- OUTSIDE RECORDS SUMMARY | 2025-06-25 12:19 | XMS_ITS | Patient Health Record ---
Author Organization [facility] Address [address] [place] [phone] Care Team Providers Care Enterprise Systems Engineer Name Role Phone Sabina(inactive) Marc MAYES Primary Care Provider Juan Ortiz Jr Reason For Referral No Information Medications Medication SIG (Take, Route, Frequency, Duration) Notes Start Date End Date Status metroNIDAZOLE 500 MG Tablet 1 tablet Orally Twice a day; Duration: 14 days 12/14/2013 Active Doxycycline Hyclate 100 MG Capsule 1 capsule Orally Twice a day; Duration: 14 days 12/14/2013 Active Bismuth Subsalicylate 262 MG Tablet Chewable 2 tablets Orally Twice a day; Duration: 14 days 12/14/2013 Active Omeprazole 20 MG Capsule Delayed Release 1 capsule Orally b.i.d.; Duration: 14 days 03/01/2012 Not-Taking/PRN metroNIDAZOLE 500 MG Tablet 1 tablet Orally Two times a day; Duration: 14 days 03/01/2012 Not-Taking/PRN Amoxicillin 500 MG Capsule 2 capsules Orally b.i.d.; Duration: 14 days 03/01/2012 Not-Taking/PRN Motrin Active PriLOSEC Active oxyCODONE-Acetaminophen 5-325 MG Tablet TAKE 1 TABLET BY MOUTH ONCE A DAY Oral; Duration: 030 Active Omeprazole 20 MG Capsule Delayed Release 1 capsule Orally Once a day; Duration: 30 day(s) 10/31/2013 Active Omeprazole 20 MG Capsule Delayed Release 1 capsule Orally Twice a day; Duration: 14 days 12/14/2013 Active Social History Social History Additional Details Category Social Info Options Details Miscellaneous: Marital status: single, 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 Problems Problem Type SNOMED Code ICD Code Onset Dates Problem Status W/U Status Risk Notes Problem Epigastric pain (56514149) Abdominal pain, epigastric (789.06) Active confirmed Plan [...] Insured Coverage Start Date Coverage End Date [facility] [address] [facility] DAGOBERTO FISHMAN [phone] [id number] EARLINE BAE Self - patient is the insured Medical (General) History Medical History History ICD Code back pain anal fissure Denies OR,DM,CVA,Lung disease,renal dise ase Surgical History Surgery Date(Month/Year) tubal legation sinus surgery hemorrhoidectomy sphincterotomy for fissure repair
--- OUTSIDE RECORDS SUMMARY | 2025-06-25 12:19 | XMS_ITS | Encounter Summary ---
Author Organization [facility] Address [address] [facility] [address] [place] [address] Phone Care Team Providers Care Commercial Housekeeper Name Role Phone Flor Arriaza NP Primary Care Provider + [phone] Mckayla Reyes RN Unavailable [phone] Encounter Details Date Type Department Care Team ([facility] st Contact Info) Description 08/20/2021 Telephone [facility] [address] [facility], 4th Floor, [address] [place] [address] Chandler Hackett MD 15 [facility] [address] [place] [address] [email or web address] Social History Tobacco Use Types Packs/Day Years [...] on filedocumented in this encounter Care Teams Commercial Housekeeper Relationship Specialty Start Date End Date Flor Arriaza NP [address] [place] [address] PCP - General Family Medicine 07/28/21 Mckayla Reyes RN [address] [place] [phone] [email or web address] Registered Nurse 08/19/21 documented as of this encounter Additional Source Comments The information contained in this document represents components of the legal health record. It is not the complete legal health record.[facility]
--- OUTSIDE RECORDS SUMMARY | 2025-06-25 12:19 | XMS_ITS | Encounter Summary ---
Author Organization [facility] Address [address] [facility] [address] [place] [address] Phone Care Team Providers Care Solutions Operator Name Role Phone Flor Arriaza NP Primary Care Provider + [phone] Mckayla Reyes RN Unavailable [phone] Encounter Details Date Type Department Care Team ([facility] st Contact Info) Description 08/18/2021 Telephone [facility] Gastrointestinal Surgery [facility] [address] [facility], 4th Floor, [address] [place] [address] Chandler Hackett MD 15 [facility] 460 [place] [address] [email or web address] Social History Tobacco Use Types [...] on filedocumented in this encounter Care Teams Solutions Operator Relationship Specialty Start Date End Date Flor Arriaza NP [address] [place] [address] PCP - General Family Medicine 07/28/21 Mckayla Reyes RN [address] [place] [address] [email or web address] Registered Nurse 08/19/21 documented as of this encounter Additional Source Comments The information contained in this document represents components of the legal health record. It is not the complete legal health record.[facility]
--- OUTSIDE RECORDS SUMMARY | 2025-06-25 12:19 | XMS_ITS | Encounter Summary ---
Author Organization [facility] Address [address] [place] [address] Phone Care Team Providers Care Tube Maker Name Role Phone Flor Arriaza NP Primary Care Provider + [phone] Mckayla Reyes RN Unavailable [phone] Encounter Details Date Type Department Care Team ([facility] st Contact Info) Description 07/31/2021 Procedure Pass [facility] PERIOPER[facility]IVE DEPT [address] [place] [phone] Social History Tobacco Use Types Packs/Day Years [...] on filedocumented in this encounter Care Teams Tube Maker Relationship Specialty Start Date End Date Flor Arriaza NP [address] [address] PCP - General Family Medicine 07/28/21 Mckayla Reyes, RN 15 [place] [address] [email or web address] Registered Nurse 08/19/21 documented as of this encounter Additional Source Comments The information contained in this document represents components of the legal health record. It is not the complete legal health record.[facility]
--- OUTSIDE RECORDS SUMMARY | 2025-06-25 12:19 | XMS_ITS | Encounter Summary ---
Author Organization [facility] Address [address] [place] [address] Phone Care Team Providers Care Vat Packer Name Role Phone Flor Arriaza NP Primary Care Provider + [phone] Mckayla Reyes RN Unavailable [phone] Encounter Details Date Type Department Care Team ([facility] st Contact Info) Description 01/08/2022 Procedure Pass [facility] PERIOPERATIVE DEPT [address] [place] [phone] Social History Tobacco Use Types Packs/Day Years [...] on filedocumented in this encounter Care Teams Vat Packer Relationship Specialty Start Date End Date Flor Arriaza NP [address] [address] PCP - General Family Medicine 07/28/21 Mckayla Reyes, RN 15 [place] [address] [email or web address] Registered Nurse 08/19/21 documented as of this encounter Additional Source Comments The information contained in this document represents components of the legal health record. It is not the complete legal health record.[facility]
--- OUTSIDE RECORDS SUMMARY | 2025-06-25 12:19 | XMS_ITS | Encounter Summary ---
Author Organization [facility] Address [address] [facility] [address] [place] [address] Phone Care Team Providers Care Wreath Machine Operator Name Role Phone Flor Arriaza NP Primary Care Provider + [phone] Mckalya Reyes RN Unavailable [phone] Encounter Details Date Type Department Care Team ([facility] st Contact Info) Description 08/20/2021 Telephone [facility]astrointestinal Surgery [facility] [address] [facility], 4th Floor, [address] [place] [address] Chandler Hackett MD 15 [facility] 460 [place] [address] [email or web address] Social History Tobacco Use Types Packs/Day Years [...] on filedocumented in this encounter Care Teams Wreath Machine Operator Relationship Specialty Start Date End Date Flor Arriaza NP [address] [place] [address] PCP - General Family Medicine 07/28/21 Mckayla Reyes RN [address] [place] [phone] [email or web address] Registered Nurse 08/19/21 documented as of this encounter Additional Source Comments The information contained in this document represents components of the legal health record. It is not the complete legal health record.[facility]
--- OUTSIDE RECORDS SUMMARY | 2025-06-25 12:19 | XMS_ITS | Clinical Summary ---
Author Organization [employer] Address [address] [facility] 7t [place] [address] Care Team Providers Care Photographer Still Name Role Phone Unavailable Primary Care Provider [...] ium Nitrate 1.1-5 % pasteIndication s:Dental caries [place] teeth for 2 minutes, morning and night. [...] post reversal of ileostomy 01/08/2022 Rectal adenocarcinoma (CMS/HCC) 10/15/2020 Encounters Date Type Department Care Team Description 06/04/2025 Orders Only [facility] ADULT DENTAL [address] [place], [place] [phone] Alessandro Mcmahon DMD from Last 3 Months Social History Tobacco [...] Exam 06/17/2024 12/16/2023 COVID-19 Vaccine (1 - 2024-2 6 season) 2025 Influenza Vaccine (#1) 2025 Dental [...]
--- OUTSIDE RECORDS SUMMARY | 2025-06-25 12:19 | XMS_ITS | Encounter Summary ---
Author Organization [facility] Address [address] [facility] [address] [place] [address] Phone Care Team Providers Care Java Web Developer Name Role Phone Flor Arriaza NP Primary Care Provider + [phone] Mckayla Reyes RN Unavailable [phone] Encounter Details Date Type Department Care Team ([facility] st Contact Info) Description 07/29/2021 Telephone [facility] General and Gastrointestinal Surgery Clinic [address] [facility], 4th Floor, [address] [place] [address] Chandler Hackett MD 15 [facility] 460 [place] [address] [email or web address] Social History Tobacco Use Types [...] on filedocumented in this encounter Care Teams Java Web Developer Relationship Specialty Start Date End Date Flor Arriaza NP [address] [place] [address] PCP - General Family Medicine 07/28/21 Mckayla Reyes RN [address] [place] [phone] [email or web address] Registered Nurse 08/19/21 documented as of this encounter Additional Source Comments The information contained in this document represents components of the legal health record. It is not the complete legal health record.[facility]
--- OUTSIDE RECORDS SUMMARY | 2025-06-25 12:19 | XMS_ITS | Encounter Summary ---
Author Organization [employer] Address [address] [facility] [address] 7t [place] [address] Care Team Providers Care Draw Furnace Tender Name Role Phone Unavailable Primary Care Provider Unavailabl e Reason for Visit * Reason Onset Date Comments missed call 06/14/2024 Encounter Details Date Type Department Care Team (Late st Contact Info) Description 06/14/2024 Telephone C ADULT DENTAL [address] [place] [address] Alessandro Mcmahon, VLADIMIR [address] [place] [address] missed call Social History Tobacco Use Types [...]
--- OUTSIDE RECORDS SUMMARY | 2025-06-25 12:19 | XMS_ITS | Encounter Summary ---
Author Organization [facility] Address [address] [place] [address] Phone Care Team Providers Care Palliative Care Coordinator Name Role Phone Ky Lin MD Primary Care Provider [phone] Flor Arriaza NP Primary Care Provider [phone] Mckayla Reyes RN Unavailable [phone] Encounter Details Date Type Department Care Team (Late st Contact Info) Description 07/20/2021 Procedure Pass [facility] [address] [facility], 6th [place] [address] Social History Tobacco Use Types Packs/Day Years [...] on filedocumented in this encounter Care Teams Palliative Care Coordinator Relationship Specialty Start Date End Date Ky Lin MD [address] [place] [address] [place] [address] PCP - General Internal Medicine 10/10/20 07/27/21 Flor Arriaza NP [address] [address] PCP - General Family Medicine 07/28/21 Mckayla Reyes RN 15 [place] [address] [email or web address] Registered Nurse 08/19/21 documented as of this encounter Additional Source Comments The information contained in this document represents components of the legal health record. It is not the complete legal health record.[facility]
== END 2025-06-25 10:49 | disposition home or self-care (01) ==
PROVIDERS: Physician Assistant Medical; Emergency Provider Emergency Medicine; PCP Internal Medicine
DX: J10.1 Influenza due to other identified influenza virus with other respiratory manifestations (principal); R05.9 Cough, unspecified; Z03.818 Encounter for observation for suspected exposure to other biological agents ruled out
CPT/HCPCS: 71046; 87637; 96372; 99283; 99284; J1885

== ENCOUNTER → 2025-06-25 09:05 | Outpatient (BNV) | payer MEDICARE, SELFPAY | PROVIDERS: Emergency Provider Emergency Medicine; PCP Internal Medicine; Visit Provider Radiology Diagnostic Radiology | DX: R05.9 Cough, unspecified (principal) | CPT/HCPCS: 71046 ==